=== PATIENT | male | born 1990 | race Caucasian/White ===

== ENCOUNTER 2017-09-19 15:48 | Emergency (ER) | payer MEDICAID, SELFPAY ==
[2017-09-19 15:49] VITALS: BP 108/68; PULSE 78; PULSE 84; RESP 17; RESP 18; TEMP 36.7; O2SAT 96; O2SAT 97; BMI 20.9
--- NOTE | 2017-09-19 16:07 | ED.VISSUMM ---
- ER Visit Summary Date of Service: 09/19/17 Chief Complaint: Right lower extremity abscess History of Present Illness: The patient is a 27 M presenting with abscess right lower extremity ?2 weeks. He states that this has been persistent therefore he presented to the ED. He has tried using peroxide at home with no improvement. He has had no drainage at home. He states 2 nights ago he had a subjective fever, no fever today. He states his blood sugars have been running in the 300s but he has been noncompliant with his diet. Denies other complaints. Physical Examination: Vitals are stable. Patient is afebrile. Alert no acute distress. HEENT exam is unremarkable. Neck is supple. Lungs are clear and equal bilaterally. Heart is regular rate and rhythm. Abdomen is soft nontender nondistended. Extremities are 1 cm fluctuant abscess medial mid calf, 0.5 cm indurated abscess distal medial calf Skin is warm and dry. No focal neurologic deficit. Remainder of exam is unremarkable. Emergency Department Course and Treatment: Patient is given IV fluids. BMP shows glucose 322. He was given insulin subcutaneous. I&D was performed. Anesthetized with lidocaine. Incised with 11 blade, small amount of pus was drained. Irrigated with saline. Wound care instructions were given. He is given a prescription for Bactrim and Keflex. Repeat BGT is 216. 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 Advised return to ED if worsening complaints. Disposition: Discharge home Impression: Right lower extremity abscess, I&D, hyperglycemia This note was generated with [employer] dictation software. It may contain incorrect words, spelling, and punctuation that were not noted in review of the chart prior to signing ED Disposition - Plan for ED Patient: Chief Complaint: Abscess Instructions: ED Abscess IandD Prescriptions: Cephalexin [Keflex] 500 mg PO Q6 #40 capsule Smz/Tmp Ds [Bactrim Ds] 1 tablet PO BID #14 tablet Referrals: Fredrick Santizo DO [STAFF PHYSICIAN] - Care Physician,No Primary [Primary Care Provider] -
[2017-09-19 16:51] LABS: Anion Gap 6 (5-15); BUN 10 mg/dL (7-18); BUN/Creat Ratio 11.7 RATIO (10-20); Calcium,Total 8.5 mg/dL (8.5-10.1); Chloride 98 mmol/L (98-107); Creatinine, Serum 0.86 mg/dL (0.70-1.30); EST Glomerular Filtration Rate 112 mL/min (>60); Est Glom Filt Rate - Afr Amer 135 mL/min (>60); Estimated Creatinine Clearance 108.99 ml/min; Glucose 322 mg/dL (74-106); Sodium Level 135 mmol/L (136-145)
[2017-09-19] MEDS: 0.9% Normal Saline 1,000 ML 1000 ML IV (17:22)
--- NOTE | 2017-09-19 17:28 | ED.DEP ---
ED Disposition - Plan for ED Patient: Chief Complaint: Abscess Instructions: ED Abscess IandD Prescriptions: Cephalexin [Keflex] 500 mg PO Q6 #40 capsule Smz/Tmp Ds [Bactrim Ds] 1 tablet PO BID #14 tablet Referrals: Care Physician,No Primary [Primary Care Provider] - Fredrick Santizo DO [STAFF PHYSICIAN] -
[2017-09-19 17:33] VITALS: BP 114/74; PULSE 72; RESP 16; O2SAT 99
[2017-09-19] MEDS: Cephalexin 250 MG Capsule 500 MG PO (17:48)
[2017-09-19] MEDS: Smz/Tmp Ds Tablet 1 TABLET PO (17:48)
[2017-09-19 18:20] LABS: Bedside Glucose 216 mg/dL (70-110)
[2017-09-19 18:40] VITALS: PULSE 78; RESP 16; O2SAT 98
== END 2017-09-19 18:41 | disposition home or self-care (01) ==
PROVIDERS: Emergency Provider Emergency Medicine
DX: L02.415 Cutaneous abscess of right lower limb (principal); E11.65 Type 2 diabetes mellitus with hyperglycemia; Z91.11 Patient's noncompliance with dietary regimen; Z72.0 Tobacco use; Z79.4 Long term (current) use of insulin; Z79.899 Other long term (current) drug therapy
CPT/HCPCS: 10060; 80048; 82962; 99284; A4216

== ENCOUNTER 2017-11-04 12:28 | Emergency (ER) | payer MEDICAID, SELFPAY ==
[2017-11-04 12:29] VITALS: BP 106/70; PULSE 106; RESP 14; TEMP 36.8; O2SAT 98; BMI 20.9
[2017-11-04 14:20] VITALS: BP 108/73; PULSE 74; RESP 12; O2SAT 100
[2017-11-04 14:25] LABS: Bedside Glucose 180 mg/dL (70-110)
--- NOTE | 2017-11-04 14:33 | ED.RN ---
WHILE DOING PT ASSESSMENT, PT ACKNOWLEDGES CHEST PAIN. EKG DONE AND GIVEN TO .
--- NOTE | 2017-11-04 15:08 | EKG12_ITS ---
Test Reason : SYNCOPE Blood Pressure : / mmHG Vent. Rate : 075 BPM Atrial Rate : 075 BPM P-R Int : 160 ms QRS Dur : 084 ms QT Int : 362 ms P-R-T Axes : 060 062 058 degrees QTc Int : 404 ms Normal sinus rhythm Normal ECG Confirmed by AGUSTO MANTILLA MD ([id number]), dictionary editor SOLEDAD LAMA ([id number]) on 11/07/2017 1:57:18 PM Referred By: OVI Confirmed By:AGUSTO MANTILLA MD
[2017-11-04] MEDS: 0.9% Normal Saline 1,000 ML 999 ML IV (15:25)
--- NOTE | 2017-11-04 15:30 | RAD_ITS ---
STUDY: X-RAY CHEST REASON FOR EXAM: Male, 27 years old. Syncope TECHNIQUE: Frontal and lateral views of the chest COMPARISON: 05/13/2017 FINDINGS: The lungs are clear. There are no pleural effusions. There is no pneumothorax. The heart is normal in size. The visualized osseous structures are within normal limits. RAD/Chest PA and Lateral IMPRESSION: No acute thoracic pathology. Electronically Signed: Fox Aj, at 16:03 EDT Tel , Service support ,
[2017-11-04 15:31] LABS: Absolute Lymphocyte Count 1.07 X10^3/ul (0.83-4.51); Absolute Neutrophil Count 2.3 X10^3/uL (2.0-7.7); Basophil# 0.04 X10^3/uL; Eosinophil# 0.13 X10^3/uL; Eosinophils% 3.1 % (0-5); Hematocrit 44.4 % (40-54); Hemoglobin 16.1 g/dl (13.0-16.5); Lymphocyte # 1.07 X10^3/ul (4.0); Lymphocyte % 25.9 % (19-41); Mean Corp Hgb Conc 36.3 g/gl (32-36); Mean Corpuscular Hgb 30.3 pg (27.0-32.0); Mean Corpuscular Volume 83.5 fL (80-94); Mean Platelet Vol. 9.4 fl (6.2-12.0); Monocyte# 0.55 X10^3/uL; Monocyte% 13.3 % (0-10); Neutrophil # 2.34 X10^3/uL (2.7-7.7); Neutrophil % 56.7 % (47-70); Platelet Count 297 K/mm3 (150-450); RBC Distribution Width SD 36.5 fl (35.1-43.9); Red Blood Count 5.32 M/mm3 (4.6-6.2); White Blood Count 4.1 K/mm3 (4.4-11.0)
[2017-11-04 15:32] LABS: POSITIVE COUNT NO; POSITIVE DIFFERENTIAL NO; POSITIVE MORPHOLOGY NO
[2017-11-04 15:49] LABS: Anion Gap 9 (5-15); BUN 14 mg/dL (7-18); BUN/Creat Ratio 14.8 RATIO (10-20); Calcium,Total 9.8 mg/dL (8.5-10.1); Chloride 101 mmol/L (98-107); Creatinine, Serum 0.95 mg/dL (0.70-1.30); EST Glomerular Filtration Rate 100 mL/min (>60); Est Glom Filt Rate - Afr Amer 120 mL/min (>60); Estimated Creatinine Clearance 101.58 ml/min; Glucose 104 mg/dL (74-106); Phosphorus 1.8 mg/dL (2.5-4.9); Potassium 3.8 mmol/L (3.5-5.1); Sodium Level 140 mmol/L (136-145)
[2017-11-04 16:14] VITALS: BP 104/62; PULSE 67; RESP 12; O2SAT 100
[2017-11-04 16:21] LABS: Bacteria 0 SEEN /hpf (None Seen); Mucous, Urine 0 SEEN /hpf (<or=2+); Red Blood Cells-Urine 0 SEEN /hpf (0-5); White Blood Cells 0 SEEN /hpf (0-5)
[2017-11-04] MEDS: Ondansetron 4 MG/2 ML Vial IV (16:22)
[2017-11-04 16:27] LABS: Hemoglobin A1c 10.8 % (4.2-6.3)
[2017-11-04 16:28] LABS: Color, Urine Yellow (Yellow); Glucose, Dipstick 1000 mg/dl (Normal); Ketone-Dipstick 50 mg/dl (Negative); Leukocyte Esterase-Dipstick Negative /ul (Negative); Nitrite-Dipstick Negative (Negative); Occult Blood-Urine Negative /ul (Negative); Protein-Dipstick Negative (Negative); Specific Gravity, Urine 1.015 (1.002-1.030); Urine Bilirubin Dipstick Negative (Negative); Urine Clarity Sl. Cloudy (Clear); Urine Urobilinogen Normal (Normal)
--- NOTE | 2017-11-04 16:34 | ED.DCSUM_ITS ---
- ER Visit Summary Date of Service: 11/04/17 Chief Complaint: Syncope History of Present Illness: The patient is a 27 M who sees ADEBAYO blanco for type 1 diabetes mellitus. He reports that his blood sugars have been running high for quite some time. His last blood sugar before coming in was 458. He reports that for the past 2 weeks off and on he has been very lightheaded. Reports this is worsened by standing. He had not passed out until this morning. Patient reports he was taking a shower approximately 930. He began feeling very lightheaded. He had nausea and shortness of breath. He denied any chest pain. No neck or back pain. He had a syncopal episode. He denies any injuries from this. Patient reports that he has had a cough for the past 1-2 months that is productive green sputum without blood. He has been nauseated and vomited once today. No blood in his emesis. He has had dysuria for the past 3 days. He has had frequent urination for quite some time. Physical Examination: Vitals: Stable. Afebrile. General: Well-nourished and well-developed. Head: Normocephalic atraumatic. Neck: Supple, no lymphadenopathy. No JVD. Nontender. Cardiovascular: Regular rate and rhythm. No murmurs. Respiratory: No respiratory distress. Clear to auscultation bilaterally. Abdominal: Soft, nontender, nondistended, normal bowel sounds. No guarding, rebound, or peritoneal signs. Back: Nontender. Extremities: Nontender, no edema. Skin: Normal color, no rash. Neurologic: Alert and oriented ?3. Cranial nerves II through XII are intact. Normal strength and sensation. Psych: Normal affect. Test Results: EKG is sinus at [address] changes. Chest x-ray is normal. CBC is more for white count of 4.1 with 13 monocytes. Chem-7 is marked for a glucose of 120. Phosphorus is 1.8. Magnesium is 2.0. UA is negative. Serum ketones are negative. Troponin is negative. Hemoglobin A1c is 10.7 showing that his sugars been approximately 250 on average for the past 3 months. Emergency Department Course and Treatment: Patient was given 2 L of normal saline and also Zofran IV. He is resting comfortably. Treatment Plan: Patient be discharged instructions follow-up his primary care physician 1-2 days not improving. Push fluids. Follow-up with ADEBAYO blanco as soon as possible for optimization of his diabetes treatment. Return to the emergency department for any worsening symptoms. Disposition: To home in improved and stable condition. Impression: 1. Syncope. 2. Orthostatic hypotension. 3. Type 1 diabetes mellitus. This note was generated with [employer] dictation software. It may contain incorrect words, spelling, and punctuation that were not noted in review of the chart prior to signing ED Disposition - Plan for ED Patient: Disposition: Home or Assisted Living Chief Complaint: Syncope Instructions: ED Hypotension Orthostatic Prescriptions: Ondansetron [Zofran Odt] 4 mg PO Q8H PRN PRN #10 tablet PRN Reason: Nausea Referrals: Daily Blanco, TEACHING AIDE-C [Nurse Practitioner] - As soon as possible Alexandre Katz MD [Primary Care Provider] - 1-2 Days if not improving
[2017-11-04 16:54] LABS: Amorphous Sediment 1+ PHOS; Squamous Epithelial Cells - UA 0-5 SEEN /hpf (0-5)
[2017-11-04 17:24] VITALS: BP 100/83; PULSE 72; RESP 16; O2SAT 100
== END 2017-11-04 17:25 | disposition home or self-care (01) ==
PROVIDERS: Emergency Provider Emergency Medicine; Family Provider Internal Medicine; PCP Internal Medicine
DX: I95.1 Orthostatic hypotension (principal); E10.9 Type 1 diabetes mellitus without complications; Z72.0 Tobacco use; Z79.899 Other long term (current) drug therapy; F32.9 Major depressive disorder, single episode, unspecified
CPT/HCPCS: 71046; 80048; 81001; 82009; 82962; 83036; 83735; 84100; 84484; 85025; 93005; 96361; 96374; 99284; J7030; A4216; J2405

== ENCOUNTER → 2017-12-16 10:25 | Outpatient (CLI) | payer MEDICAID, SELFPAY ==
[2017-12-16 11:25] LABS: Microalbumin,Random Urine 7.2 mg/L (NO RANGE EST.)
[2017-12-16 11:29] LABS: ALB/GLOB Ratio 0.9 RATIO (0.9-2.4); AST(SGOT) 22 U/L (15-37); Alanine Aminotransfer ALT/SGPT 18 U/L (16-61); Albumin, Serum 3.5 g/dL (3.2-5.0); Alkaline Phosphatase 136 U/L (45-117); Anion Gap 10 (5-15); BUN 8 mg/dL (7-18); BUN/Creat Ratio 9.5 RATIO (10-20); Calcium,Total 8.4 mg/dL (8.5-10.1); Chloride 105 mmol/L (98-107); Cholesterol 121 mg/dL (200); Creatinine, Serum 0.84 mg/dL (0.70-1.30); EST Glomerular Filtration Rate 114 mL/min (>60); Est Glom Filt Rate - Afr Amer 138 mL/min (>60); Globulin 3.8 g/dL (2.2-4.2); Glucose 155 mg/dL (74-106); High Density Lipoprotein 31 mg/dL; Potassium 3.9 mmol/L (3.5-5.1); Protein, Total 7.3 g/dL (6.4-8.2); Sodium Level 140 mmol/L (136-145); Triglycerides 250 mg/dL; Very Low Density Lipoprotein 50 mg/dL (5-40)
[2017-12-16 11:32] LABS: Hemoglobin A1c 9.3 % (4.2-6.3)
== END ==
PROVIDERS: Family Provider Internal Medicine; PCP Internal Medicine; Visit Provider Nurse Practitioner
DX: E10.9 Type 1 diabetes mellitus without complications (principal)
CPT/HCPCS: 36415; 80053; 80061; 82043; 82570; 83036

== ENCOUNTER 2018-01-02 16:18 | Emergency (ER) | payer MEDICAID, SELFPAY ==
[2018-01-02] VITALS (7 sets, daily range): BP systolic 53–117; BP diastolic 31–76; PULSE 92–139; RESP 14–18; TEMP 36.6; O2SAT 98–100; BMI 19.5
--- NOTE | 2018-01-02 16:55 | CT_ITS ---
STUDY: CT BRAIN WITHOUT CONTRAST REASON FOR EXAM: Male, 27 years old. Weakness RADIATION DOSAGE (If Supplied By Facility): CTDIvol = ( 44.99 ) mGy, DLP = ( 762.36 ) mGycm TECHNIQUE: Transaxial CT imaging of the brain was performed without administration of intravenous contrast material. Individualized dose optimization techniques were used for this CT. COMPARISON: None. FINDINGS: Normal soft tissue structures. Normal calvarium. Normal size ventricles and extra-axial spaces for the patient's age. Normal white matter tracts of the cerebral hemispheres. Normal basal ganglia and thalami. Normal brainstem. Normal cerebellum. There is no intracranial hemorrhage. There are no findings of an acute ischemic infarction. Normal visualized paranasal sinuses. CT/Brain/Head without Contrast IMPRESSION: Normal unenhanced CT scan of the brain. Electronically Signed: Nick Crowe MD at 17:55 EDT , Service support ,
--- NOTE | 2018-01-02 16:55 | RAD_ITS ---
STUDY: X-RAY CHEST REASON FOR EXAM: Male, 27 years old. Pain TECHNIQUE: AP portable COMPARISON: November 04, 2017. FINDINGS: The lungs are clear and expanded. Cannot exclude tiny calcified granuloma at the left lung base. There is no demonstrated pleural abnormality. Normal size heart. Normal mediastinum and maria luisa. Normal visualized pulmonary arteries. Normal visualized aortic arch and descending thoracic aorta. Normal visualized thoracic spine. Normal visualized ribs, clavicles, and shoulders. There is no demonstrated abnormality of the visualized soft tissue structures of the upper abdomen. No significant change since prior study RAD/Chest 1 View (Portable) IMPRESSION: No acute cardiopulmonary pathology Electronically Signed: Nick Crowe MD at 17:35 EDT , Service support ,
--- NOTE | 2018-01-02 16:56 | EKG12_ITS ---
Test Reason : DIZZY Blood Pressure : / mmHG Vent. Rate : 055 BPM Atrial Rate : 055 BPM P-R Int : 130 ms QRS Dur : 084 ms QT Int : 464 ms P-R-T Axes : 018 048 066 degrees QTc Int : 443 ms Sinus bradycardia Otherwise normal ECG Confirmed by JOSE RAFAEL CHAPMAN, AGUSTO ([id number]), editor sound SOLEDAD LAMA ([id number]) on 01/06/2018 1:47:26 PM Referred By: AILEEN Confirmed By:AGUSTO MANTILLA MD
--- NOTE | 2018-01-02 16:58 | ED.VISSUMM ---
- ER Visit Summary Date of Service: 01/02/18 Chief Complaint: Blacking out History of Present Illness: The patient is a 27 M with history of diabetes and depression who presents for blacking out multiple times today. Patient also complaining of vomiting multiple times. Patient's family state he does not remember most of the day. Patient's roommate found him on the stairs throwing up. Unknown if patient fell at all today. Patient is complaining of associated upper abdominal pain, lower chest pain on the right, 1 week of feeling like his breath is being stolen from him, abdominal pain and vomiting. He denies any fever. He asked me if my hair was purple. Patient uses insulin for diabetes and states she has been compliant. He is supposed to be on escitalopram for depression but states he stopped taking it 4-5 days ago. He denies drug use other than marijuana. He drinks frequently but states he did not drink today. He uses tobacco. He denies any chance of withdrawal from anything. Physical Examination: Vital signs: afebrile, hemodynamically stable at time of physician exam, no hypoxia on room air General: well nourished, well developed, in no distress Skin: warm, dry, no rash, no pallor HEENT: normocephalic and atraumatic; tender lymphadenopathy in the left occipital region, PERRL, EOMI, tacky mucous membranes Cardiovascular: Bradycardic rate rate and regular rhythm without murmurs, no peripheral edema, 2+ pulses all distal extremities Respiratory: No increased work of breathing, lungs are clear to auscultation bilaterally, no rales, rhonchi or wheezing Abdominal: Abdomen is soft, mildly tender in the epigastrium with normoactive bowel sounds, no guarding or rebound, no masses MSK: Moves all extremities, no deformities, normal strength Neuro: Awake and alert, oriented ?4. No facial droop, sensation and motor function intact and symmetric Test Results: Abnormal Lab Results 01/02/18 01/02/18 01/02/18 16:43 16:43 16:43 WBC 9.7 RBC 5.82 Hgb 18.2 H* Hct 49.9 MCV 85.7 MCH 31.3 MCHC 36.5 H RDW 13.0 RDW Differential 40.1 Plt Count 304 MPV 9.7 Immature Gran % (Auto) 0.100 Neut % (Auto) 82.8 H Lymph % (Auto) 9.1 L Walworth % (Auto) 7.4 Eos % (Auto) 0.4 Baso % (Auto) 0.2 Absolute Neuts (auto) 8.0 H Absolute Lymphs (auto) 0.88 Total Counted Not Reportable PT 14.0 INR 1.1 APTT 28.6 Specimen Type Sample Site VBG pH VBG pO2 VBG O2 Sat (Calc) VBG O2 Content VBG Base Excess POC Mix VBG pCO2 Pt Tmp O2 Delivery Device Blood Gas Notified Whom Blood Gas Notified Time Sodium 136 Potassium 3.9 Chloride 96 L Carbon Dioxide 31.0 Anion Gap 9 BUN 11 Creatinine 1.53 H Estim Creat Clear Calc 57.13 Est GFR (MDRD) Af Amer 69 Est GFR (MDRD) Non-Af 57 L BUN/Creatinine Ratio 7.2 L Glucose 397 H Lactic Acid Calcium 9.9 Total Bilirubin 2.80 H AST 15 ALT 24 Alkaline Phosphatase 254 H Troponin I < 0.015 Total Protein 9.2 H Albumin 4.6 Globulin 4.6 H Albumin/Globulin Ratio 1.0 Lipase 33 L Urine Color Urine Clarity Urine pH Ur Specific Rougon Urine Protein Urine Glucose (UA) Urine Ketones Urine Occult Blood Urine Nitrite Urine Bilirubin Urine Urobilinogen Ur Leukocyte Esterase Urine RBC Urine WBC Ur Squamous Epith Cells Urine Bacteria Urine Mucus Urine Opiates Screen Urine Methadone Screen Ur Barbiturates Screen Ur Phencyclidine Scrn Ur Amphetamines Screen U Methamphetamin-MDMA U Benzodiazepines Scrn Urine Cocaine Screen U Cannabinoids Screen Ur Drug Screen Comment Ethyl Alcohol Acetone Level POC Glucose 01/02/18 01/02/18 01/02/18 16:43 16:55 17:15 WBC RBC Hgb Hct MCV MCH MCHC RDW RDW Differential Plt Count MPV Immature Gran % (Auto) Neut % (Auto) Lymph % (Auto) Walworth % (Auto) Eos % (Auto) Baso % (Auto) Absolute Neuts (auto) Absolute Lymphs (auto) Total Counted PT INR APTT Specimen Type Sample Site VBG pH VBG pO2 VBG O2 Sat (Calc) VBG O2 Content VBG Base Excess POC Mix VBG pCO2 Pt Tmp O2 Delivery Device Blood Gas Notified Whom Blood Gas Notified Time Sodium Potassium Chloride Carbon Dioxide Anion Gap BUN Creatinine Estim Creat Clear Calc Est GFR (MDRD) Af Amer Est GFR (MDRD) Non-Af BUN/Creatinine Ratio Glucose Lactic Acid 2.0 Calcium Total Bilirubin AST ALT Alkaline Phosphatase Troponin I Total Protein Albumin Globulin Albumin/Globulin Ratio Lipase Urine Color Urine Clarity Urine pH Ur Specific Rougon Urine Protein Urine Glucose (UA) Urine Ketones Urine Occult Blood Urine Nitrite Urine Bilirubin Urine Urobilinogen Ur Leukocyte Esterase Urine RBC Urine WBC Ur Squamous Epith Cells Urine Bacteria Urine Mucus Urine Opiates Screen Urine Methadone Screen Ur Barbiturates Screen Ur Phencyclidine Scrn Ur Amphetamines Screen U Methamphetamin-MDMA U Benzodiazepines Scrn Urine Cocaine Screen U Cannabinoids Screen Ur Drug Screen Comment Ethyl Alcohol 4.0 Acetone Level POC Glucose 357 H 01/02/18 01/02/18 01/02/18 17:15 17:18 17:50 WBC RBC Hgb Hct MCV MCH MCHC RDW RDW Differential Plt Count MPV Immature Gran % (Auto) Neut % (Auto) Lymph % (Auto) Walworth % (Auto) Eos % (Auto) Baso % (Auto) Absolute Neuts (auto) Absolute Lymphs (auto) Total Counted PT INR APTT Specimen Type AMADO Sample Site OTHER VBG pH 7.41 VBG pO2 29 VBG O2 Sat (Calc) 55 VBG O2 Content 29 VBG Base Excess 3 POC Mix VBG pCO2 Pt Tmp 44.5 O2 Delivery Device Room Air Blood Gas Notified Whom ED Blood Gas Notified Time 1711 Sodium Potassium Chloride Carbon Dioxide Anion Gap BUN Creatinine Estim Creat Clear Calc Est GFR (MDRD) Af Amer Est GFR (MDRD) Non-Af BUN/Creatinine Ratio Glucose Lactic Acid Calcium Total Bilirubin AST ALT Alkaline Phosphatase Troponin I Total Protein Albumin Globulin Albumin/Globulin Ratio Lipase Urine Color Yellow Urine Clarity Clear Urine pH 6.5 Ur Specific Rougon 1.005 Urine Protein 30 H Urine Glucose (UA) 1000 H Urine Ketones 50 H Urine Occult Blood Negative Urine Nitrite Negative Urine Bilirubin Negative Urine Urobilinogen Normal Ur Leukocyte Esterase Negative Urine RBC 0 SEEN Urine WBC 0 SEEN Ur Squamous Epith Cells 0-5 SEEN Urine Bacteria 0 SEEN Urine Mucus 0 SEEN Urine Opiates Screen Urine Methadone Screen Ur Barbiturates Screen Ur Phencyclidine Scrn Ur Amphetamines Screen U Methamphetamin-MDMA U Benzodiazepines Scrn Urine Cocaine Screen U Cannabinoids Screen Ur Drug Screen Comment Ethyl Alcohol Acetone Level NEGATIVE POC Glucose 01/02/18 01/02/18 17:50 20:28 WBC RBC Hgb Hct MCV MCH MCHC RDW RDW Differential Plt Count MPV Immature Gran % (Auto) Neut % (Auto) Lymph % (Auto) Walworth % (Auto) Eos % (Auto) Baso % (Auto) Absolute Neuts (auto) Absolute Lymphs (auto) Total Counted PT INR APTT Specimen Type Sample Site VBG pH VBG pO2 VBG O2 Sat (Calc) VBG O2 Content VBG Base Excess POC Mix VBG pCO2 Pt Tmp O2 Delivery Device Blood Gas Notified Whom Blood Gas Notified Time Sodium Potassium Chloride Carbon Dioxide Anion Gap BUN Creatinine Estim Creat Clear Calc Est GFR (MDRD) Af Amer Est GFR (MDRD) Non-Af BUN/Creatinine Ratio Glucose Lactic Acid Calcium Total Bilirubin AST ALT Alkaline Phosphatase Troponin I Total Protein Albumin Globulin Albumin/Globulin Ratio Lipase Urine Color Urine Clarity Urine pH Ur Specific Rougon Urine Protein Urine Glucose (UA) Urine Ketones Urine Occult Blood Urine Nitrite Urine Bilirubin Urine Urobilinogen Ur Leukocyte Esterase Urine RBC Urine WBC Ur Squamous Epith Cells Urine Bacteria Urine Mucus Urine Opiates Screen NEGATIVE Urine Methadone Screen NEGATIVE Ur Barbiturates Screen NEGATIVE Ur Phencyclidine Scrn NEGATIVE Ur Amphetamines Screen POSITIVE H U Methamphetamin-MDMA NEGATIVE U Benzodiazepines Scrn NEGATIVE Urine Cocaine Screen NEGATIVE U Cannabinoids Screen POSITIVE H Ur Drug Screen Comment Ethyl Alcohol Acetone Level POC Glucose 309 H Clinical Impression(s) from Imaging Studies Brain CT 01/02/18 16:55 IMPRESSION: Normal unenhanced CT scan of the brain. Electronically Signed: Nick Crowe MD at 17:55 EDT , Service support , Chest X-Ray 01/02/18 16:55 IMPRESSION: No acute cardiopulmonary pathology Electronically Signed: Nick Crowe MD at 17:35 EDT , Service support , Emergency Department Course and Treatment: Patient presents with multiple episodes of blacking out today and does not remember most of the day. Patient is diabetic and blood sugar check is 357. Patient was orthostatic positive. He was given 2 L of IV fluid for hydration. Workup for patient's altered mental status and hyperglycemia/orthostatic hypotension was performed. Patient had no leukocytosis. Glucose on BMP was 397. Creatinine was 1.53, well above patient's baseline. Urinalysis had trace ketones but serum ketones were negative. Alcohol was negative. Tox was positive for amphetamines and THC. Troponin negative. EKG showed no ischemic changes. No ectopy or pro arrhythmic findings on EKG. Patient's lab work was not consistent with DKA. Patient was given subcutaneous insulin for his hyperglycemia. CT of the head was performed given his mental status changes today and the unknown possibility of head trauma when he fell on the stairs, and it showed no mass lesions or intracranial hemorrhage. Chest x-ray showed no acute process. After patient's 2 L of IV fluids, he stated he felt much better and he was no longer orthostatic. Given his positive orthostatics, it is likely that the patient was having his blackouts from going from a sitting to a standing position and having a syncopal episode. Patient felt much better and was ready for discharge. He was able to ambulate without any difficulty. He was discharged home with family. Treatment Plan: [] Disposition: [] Impression: Hyperglycemia, dehydration, orthostatic syncope This note was generated with [employer] dictation software. It may contain incorrect words, spelling, and punctuation that were not noted in review of the chart prior to signing ED Disposition - Plan for ED Patient: Disposition: Home or Assisted Living Chief Complaint: Weakness Instructions: ED Hyperglycemia Diabetic, ED Hypotension Orthostatic Referrals: Alexandre Katz MD [Primary Care Provider] - 1-2 Days if not improving Additional Instructions: Please drink plenty of fluids, as you were dehydrated today. Please follow your insulin regimen and diabetic treatment strictly as prescribed by your doctor. If you have any worsening of your condition or any new concerning symptoms, please return immediately to the emergency department for another evaluation.
[2018-01-02 17:00] LABS: Bedside Glucose 357 mg/dL (70-110)
[2018-01-02] MEDS: 0.9% Normal Saline 1,000 ML 1000 ML IV (17:09)
[2018-01-02] MEDS: Ondansetron 4 MG/2 ML Vial IV (17:09)
[2018-01-02 17:25] LABS: International Normalized Ratio 1.1; Partial Thromboplast Time 28.6 Seconds (24.1-36.2)
[2018-01-02 17:25] LABS: Blood Gas Specimen Type VEN; O2 Delivery Device Room Air; SITE OTHER; Time Given 1711; VBG BASE EXCESS 3 mmol/L (-1.0-3.5); VBG Bicarbonate 28 mmol/L (22-26); VBG Oxygen Content 29 mmol/L (23-33); VBG PO2 29 mmHg (25-40); VBG SO2 55 % (50-70); VBG pCO2 44.5 mmHg (41-51); VBG pH 7.41 (7.32-7.42)
[2018-01-02 17:34] LABS: Absolute Lymphocyte Count 0.88 X10^3/ul (0.83-4.51); Basophil# 0.02 X10^3/uL; Basophil% 0.2 % (0-1); Eosinophil# 0.04 X10^3/uL; Eosinophils% 0.4 % (0-5); Hematocrit 49.9 % (40-54); Lymphocyte # 0.88 X10^3/ul (4.0); Lymphocyte % 9.1 % (19-41); Mean Corp Hgb Conc 36.5 g/gl (32-36); Mean Corpuscular Hgb 31.3 pg (27.0-32.0); Mean Corpuscular Volume 85.7 fL (80-94); Mean Platelet Vol. 9.7 fl (6.2-12.0); Monocyte# 0.72 X10^3/uL; Monocyte% 7.4 % (0-10); Neutrophil # 8.01 X10^3/uL (2.7-7.7); Neutrophil % 82.8 % (47-70); Platelet Count 304 K/mm3 (150-450); RBC Distribution Width SD 40.1 fl (35.1-43.9); Red Blood Count 5.82 M/mm3 (4.6-6.2); White Blood Count 9.7 K/mm3 (4.4-11.0)
[2018-01-02 17:35] LABS: Hemoglobin 18.2 g/dl (13.0-16.5); POSITIVE COUNT NO; POSITIVE DIFFERENTIAL NO; POSITIVE MORPHOLOGY NO
[2018-01-02 17:55] LABS: Bacteria 0 SEEN /hpf (None Seen); Mucous, Urine 0 SEEN /hpf (<or=2+); Red Blood Cells-Urine 0 SEEN /hpf (0-5); White Blood Cells 0 SEEN /hpf (0-5)
[2018-01-02 18:11] LABS: Color, Urine Yellow (Yellow); Glucose, Dipstick 1000 mg/dl (Normal); Ketone-Dipstick 50 mg/dl (Negative); Leukocyte Esterase-Dipstick Negative /ul (Negative); Nitrite-Dipstick Negative (Negative); Occult Blood-Urine Negative /ul (Negative); Protein-Dipstick 30 mg/dl (Negative); Specific Gravity, Urine 1.005 (1.002-1.030); Urine Bilirubin Dipstick Negative (Negative); Urine Urobilinogen Normal (Normal); Urine pH 6.5 (5.0 - 8.0)
[2018-01-02 18:22] LABS: Amphetamine Urine VISTA POSITIVE (<1000 ng/mL); Barbiturate Urine VISTA NEGATIVE (< 200 ng/mL); Benzodiazepine Urine VISTA NEGATIVE (< 200 ng/mL); Cocaine Urine VISTA NEGATIVE (< 300 ng/mL); Ecstacy Urine VISTA NEGATIVE (< 500 ng/mL); Methadone Urine VISTA NEGATIVE (< 300 ng/mL); PCP Urine VISTA NEGATIVE (< 25 ng/mL); THC Urine VISTA POSITIVE (< 50 ng/mL); Vista UDS pH Range 6
[2018-01-02 18:36] LABS: Squamous Epithelial Cells - UA 0-5 SEEN /hpf (0-5); Urine Clarity Clear (Clear)
[2018-01-02 18:54] LABS: AST(SGOT) 15 U/L (15-37); Alanine Aminotransfer ALT/SGPT 24 U/L (16-61); Albumin, Serum 4.6 g/dL (3.2-5.0); Alkaline Phosphatase 254 U/L (45-117); Anion Gap 9 (5-15); BUN 11 mg/dL (7-18); BUN/Creat Ratio 7.2 RATIO (10-20); Calcium,Total 9.9 mg/dL (8.5-10.1); Chloride 96 mmol/L (98-107); Creatinine, Serum 1.53 mg/dL (0.70-1.30); EST Glomerular Filtration Rate 57 mL/min (>60); Est Glom Filt Rate - Afr Amer 69 mL/min (>60); Estimated Creatinine Clearance 57.13 ml/min; Globulin 4.6 g/dL (2.2-4.2); Glucose 397 mg/dL (74-106); Lipase 33 U/L (73-393); Potassium 3.9 mmol/L (3.5-5.1); Protein, Total 9.2 g/dL (6.4-8.2); Sodium Level 136 mmol/L (136-145)
[2018-01-02] MEDS: Lactated Ringers 1,000 ML 999 ML IV (20:22)
[2018-01-02] MEDS: Insulin Lispro 100 UNIT/ML INSULN.PEN 10 UNIT SC (20:31)
[2018-01-02 20:36] LABS: Bedside Glucose 309 mg/dL (70-110)
[2018-01-02 21:24] LABS: Reflex Lactate? Y
--- NOTE | 2018-01-02 21:38 | ED.DEP ---
ED Disposition - Plan for ED Patient: Disposition: Home or Assisted Living Chief Complaint: Weakness Instructions: ED Hyperglycemia Diabetic, ED Hypotension Orthostatic Referrals: Alexandre Katz MD [Primary Care Provider] - 1-2 Days if not improving Additional Instructions: Please drink plenty of fluids, as you were dehydrated today. Please follow your insulin regimen and diabetic treatment strictly as prescribed by your doctor. If you have any worsening of your condition or any new concerning symptoms, please return immediately to the emergency department for another evaluation.
== END 2018-01-02 21:54 | disposition home or self-care (01) ==
PROVIDERS: Emergency Provider Emergency Medicine; Family Provider Internal Medicine; PCP Internal Medicine
DX: E11.65 Type 2 diabetes mellitus with hyperglycemia (principal); R55 Syncope and collapse; E86.0 Dehydration; R41.82 Altered mental status, unspecified; R07.9 Chest pain, unspecified; F32.9 Major depressive disorder, single episode, unspecified; Z72.0 Tobacco use; Z79.4 Long term (current) use of insulin; Z79.899 Other long term (current) drug therapy
CPT/HCPCS: 70450; 71045; 80053; 80307; 80320; 81001; 82009; 82803; 82962; 83605; 83690; 84484; 85025; 85610; 85730; 87040; 87086; 93005; 96361; 96374; 99285; J7030; J7120; A4216; G0480

== ENCOUNTER → 2018-01-06 15:48 | Outpatient (CLI) | payer MEDICAID, SELFPAY ==
[2018-01-06 18:01] LABS: Hematocrit 44.7 % (40-54); Hemoglobin 16.2 g/dl (13.0-16.5); Mean Corp Hgb Conc 36.2 g/gl (32-36); Mean Corpuscular Hgb 31.3 pg (27.0-32.0); Mean Corpuscular Volume 86.5 fL (80-94); Mean Platelet Vol. 10.3 fl (6.2-12.0); Platelet Count 277 K/mm3 (150-450); RBC Distribution Width CV 13.1 % (11.6-14.6); RBC Distribution Width SD 40.7 fl (35.1-43.9); Red Blood Count 5.17 M/mm3 (4.6-6.2); White Blood Count 3.3 K/mm3 (4.4-11.0)
[2018-01-06 18:09] LABS: ALB/GLOB Ratio 1.1 RATIO (0.9-2.4); AST(SGOT) 17 U/L (15-37); Alanine Aminotransfer ALT/SGPT 16 U/L (16-61); Albumin, Serum 4.2 g/dL (3.2-5.0); Alkaline Phosphatase 165 U/L (45-117); Anion Gap 8 (5-15); BUN 6 mg/dL (7-18); BUN/Creat Ratio 7.7 RATIO (10-20); Calcium,Total 9.3 mg/dL (8.5-10.1); Chloride 104 mmol/L (98-107); Creatinine, Serum 0.78 mg/dL (0.70-1.30); EST Glomerular Filtration Rate 125 mL/min (>60); Est Glom Filt Rate - Afr Amer 151 mL/min (>60); Globulin 3.8 g/dL (2.2-4.2); Glucose 48 mg/dL (74-106); Potassium 3.5 mmol/L (3.5-5.1); Sodium Level 144 mmol/L (136-145)
[2018-01-06 18:20] LABS: Scan Indicated on CBC? Y/N NO
== END ==
PROVIDERS: Family Provider Internal Medicine; PCP Internal Medicine; Visit Provider Nurse Practitioner Family
DX: R00.2 Palpitations (principal); R42 Dizziness and giddiness
CPT/HCPCS: 36415; 80053; 85027

== ENCOUNTER → 2018-01-07 12:46 | Outpatient (CLI) | payer MEDICAID, SELFPAY | PROVIDERS: Family Provider Internal Medicine; PCP Internal Medicine; Visit Provider Internal Medicine | DX: R00.2 Palpitations (principal); R42 Dizziness and giddiness | CPT/HCPCS: 93225; 93226 ==

== ENCOUNTER 2018-09-01 10:45 | Emergency (ER) | payer MEDICAID, SELFPAY ==
[2018-05-19 12:56] VITALS: BMI 20.7
[2018-09-01 10:47] VITALS: BP 106/88; PULSE 121; RESP 22; TEMP 36.6; O2SAT 98; BMI 20.3
--- NOTE | 2018-09-01 10:55 | ED.VISSUMM ---
- ER Visit Summary Date of Service: 09/01/18 Chief Complaint: I think I am in DKA History of Present Illness: The patient is a 28 M with history of type 1 diabetes presenting with 24 hours of nausea, vomiting, and diarrhea. Blood glucose has been reading high on his monitor. He believes he is in DKA. He denies localized abdominal discomfort, fever, body aches, or urinary symptoms. Denies recent changes in medication. Physical Examination: He is tachycardic. He appears dehydrated. Mucous members dry. Neck is supple. Abdomen somewhat tender but no peritoneal signs. No localized discomfort or tenderness. No flank tenderness. No rash or petechiae. Strong pulses in all remedies. Normal mental status examination. Test Results: Emergency Department Course and Treatment: He was only mildly hyperglycemic. Slightly elevated but bicarb is normal. No ketones in the serum. His creatinine was elevated at 2.42. He was given IV fluids and Zofran. A total of 3 L of IV fluids. On reexamination, he is completely awake and alert abdomen is soft and nontender. Not complaining of nausea or pain. He feels much better. He is drinking fluid without difficulty. I spoke at length with the patient and his mother. This is been a recurrent issue for him and he has had dehydration and acute kidney injury before. It typically resolves after IV fluids in the emergency department. We discussed repeating it here however he is confident that he can get in with his doctor in the next 2 days and given his well appearance and the fact that he received 3 L of IV fluids, I feel he can safely follow-up for repeat BMP in 2 days. I stressed the importance of having this repeated within 48 hours and coming back if he starts vomiting again. I did attempt to contact his primary care physician but I have not been able to speak with him yet. Treatment Plan: Continue oral hydration, come back if vomiting, repeat BMP within 48 hours Disposition: Home stable Impression: Initial encounter glycemia, initial encounter acute kidney injury, initial encounter dehydration This note was generated with [employer] dictation software. It may contain incorrect words, spelling, and punctuation that were not noted in review of the chart prior to signing ED Disposition - Plan for ED Patient: Diagnosis: Dehydration, Acute kidney injury Referrals: Alexandre Katz MD [Primary Care Provider] - As soon as possible
[2018-09-01 11:15] LABS: Bedside Glucose 234 mg/dL (70-110)
[2018-09-01 11:26] LABS: Absolute Lymphocyte Count 1.24 X10^3/ul (0.83-4.51); Absolute Neutrophil Count 7.6 X10^3/uL (2.0-7.7); Basophil# 0.01 X10^3/uL; Basophil% 0.1 % (0-1); Eosinophil# 0.01 X10^3/uL; Eosinophils% 0.1 % (0-5); Hematocrit 51.3 % (40-54); Hemoglobin 18.1 g/dl (13.0-16.5); Lymphocyte # 1.24 X10^3/ul (4.0); Lymphocyte % 12.3 % (19-41); Mean Corp Hgb Conc 35.3 g/gl (32-36); Mean Corpuscular Hgb 31.3 pg (27.0-32.0); Mean Corpuscular Volume 88.8 fL (80-94); Mean Platelet Vol. 10.4 fl (6.2-12.0); Monocyte# 1.22 X10^3/uL; Monocyte% 12.1 % (0-10); Neutrophil # 7.61 X10^3/uL (2.7-7.7); Neutrophil % 75.4 % (47-70); Platelet Count 349 K/mm3 (150-450); RBC Distribution Width CV 12.4 % (11.6-14.6); RBC Distribution Width SD 39.1 fl (35.1-43.9); Red Blood Count 5.78 M/mm3 (4.6-6.2); White Blood Count 10.1 K/mm3 (4.4-11.0)
[2018-09-01 11:27] LABS: POSITIVE COUNT NO; POSITIVE DIFFERENTIAL NO; POSITIVE MORPHOLOGY NO
[2018-09-01 11:35] LABS: Anion Gap 16 (5-15); BUN 28 mg/dL (7-18); BUN/Creat Ratio 11.6 RATIO (10-20); Calcium,Total 10.2 mg/dL (8.5-10.1); Chloride 100 mmol/L (98-107); Creatinine, Serum 2.42 mg/dL (0.70-1.30); EST Glomerular Filtration Rate 34 mL/min (>60); Est Glom Filt Rate - Afr Amer 41 mL/min (>60); Estimated Creatinine Clearance 37.23 ml/min; Glucose 228 mg/dL (74-106); Potassium 3.9 mmol/L (3.5-5.1); Sodium Level 144 mmol/L (136-145)
[2018-09-01] MEDS: Ondansetron 4 MG/2 ML Vial IV (11:36)
[2018-09-01] MEDS: 0.9% Normal Saline 1,000 ML 999 ML IV ×4 (11:36→14:28)
[2018-09-01] MEDS: LORazepam 2 MG/ML Syringe 0.5 MG IV (11:36)
[2018-09-01 12:06] VITALS: BP 131/78; PULSE 84; RESP 20; O2SAT 94
[2018-09-01 12:07] VITALS: BP 131/78; PULSE 84; RESP 20; TEMP 36.6; O2SAT 94
[2018-09-01 12:21] LABS: Bedside Glucose 197 mg/dL (70-110)
[2018-09-01 12:29] LABS: Bacteria 0 SEEN /hpf (None Seen); Mucous, Urine 0 SEEN /hpf (<or=2+); Red Blood Cells-Urine 0 SEEN /hpf (0-5); White Blood Cells 0 SEEN /hpf (0-5)
[2018-09-01 12:38] LABS: Color, Urine Yellow (Yellow); Glucose, Dipstick 1000 mg/dl (Normal); Ketone-Dipstick 50 mg/dl (Negative); Leukocyte Esterase-Dipstick Negative /ul (Negative); Nitrite-Dipstick Negative (Negative); Occult Blood-Urine Negative /ul (Negative); Protein-Dipstick 30 mg/dl (Negative); Specific Gravity, Urine 1.025 (1.002-1.030); Urine Bilirubin Dipstick Negative (Negative); Urine Clarity Clear (Clear); Urine Urobilinogen Normal (Normal)
[2018-09-01 12:44] LABS: Hyaline Cast 0-5 SEEN /lpf (0-5); Squamous Epithelial Cells - UA 0-5 SEEN /hpf (0-5)
[2018-09-01 13:41] VITALS: BP 107/68; PULSE 74; RESP 16; TEMP 36.7; O2SAT 98
[2018-09-01 13:46] LABS: Bedside Glucose 180 mg/dL (70-110)
[2018-09-01 14:26] VITALS: BP 102/64; PULSE 77; RESP 16; TEMP 36.7; O2SAT 97
--- NOTE | 2018-09-01 15:14 | ED.VISSUMM ---
- ER Visit Summary Date of Service: 09/01/18 Chief Complaint: [] History of Present Illness: The patient is a 28 M [] Physical Examination: [] Test Results: [] Emergency Department Course and Treatment: [] Treatment Plan: [] Disposition: [] Impression: [] This note was generated with [employer] software. It may contain incorrect words, spelling, and punctuation that were not noted in review of the chart prior to signing ED Disposition - Plan for ED Patient: Diagnosis: Dehydration, Acute kidney injury Instructions: ED Nausea Vomiting, ED Dehydration Referrals: Alexandre Katz MD [Primary Care Provider] - As soon as possible
--- NOTE | 2018-09-01 15:17 | ED.DCSUM_ITS ---
- ER Visit Summary Date of Service: 09/01/18 Chief Complaint: [] History of Present Illness: The patient is a 28 M [] Physical Examination: [] Test Results: [] Emergency Department Course and Treatment: [] Treatment Plan: [] Disposition: [] Impression: [] This note was generated with [employer] software. It may contain incorrect words, spelling, and punctuation that were not noted in review of the chart prior to signing ED Disposition - Plan for ED Patient: Diagnosis: Dehydration, Acute kidney injury Instructions: ED Nausea Vomiting, ED Dehydration Referrals: Alexandre Katz MD [Primary Care Provider] - As soon as possible
--- NOTE | 2018-09-01 15:51 | ED.RN ---
per verbal order from dr. winters. pt blood glucose does not need checked before dischare. pt educated on dc instructions importance of hydration and managing diabetes. pt denies any further questions. pt to follow up with dr. hua and have bun/creat redrawn in 1 week.
[2018-09-01 15:53] VITALS: BP 123/83; PULSE 77; RESP 18; O2SAT 99
== END 2018-09-01 15:56 | disposition home or self-care (01) ==
PROVIDERS: Emergency Provider Emergency Medicine; Family Provider Internal Medicine; PCP Internal Medicine
DX: E10.65 Type 1 diabetes mellitus with hyperglycemia (principal); N17.9 Acute kidney failure, unspecified; E86.0 Dehydration; R11.2 Nausea with vomiting, unspecified; R19.7 Diarrhea, unspecified; K21.9 Gastro-esophageal reflux disease without esophagitis; F32.9 Major depressive disorder, single episode, unspecified; Z72.0 Tobacco use; Z79.4 Long term (current) use of insulin; Z79.899 Other long term (current) drug therapy
CPT/HCPCS: 80048; 81001; 82009; 82962; 85025; 96361; 96374; 96375; 99284; J7030; A4216; J2405

== ENCOUNTER 2018-09-14 18:53 | Emergency (ER) | payer OTHER, MEDICAID, SELFPAY ==
[2018-09-14 18:55] VITALS: BP 118/82; PULSE 67; RESP 15; TEMP 36.1; O2SAT 99; BMI 20.7
--- NOTE | 2018-09-14 22:35 | ED.VISSUMM ---
- ER Visit Summary Date of Service: 09/14/18 Chief Complaint: Hot grease to left eye History of Present Illness: The patient is a 28 M patient was cooking and when he was placing the chicken tenders in the hot grease splashed into his left eye. This occurred approximately 3 hours prior. He does wear glasses. Is never had any eye surgery. Does not have foreign body sensation. He is a known type 1 insulin-dependent diabetic. Offered and deferred Worker's Comp. Physical Examination: Well-appearing young male. Vital signs are stable. He is afebrile. H EENT exam pupils round reactive light. Extraocular motions are intact. There is no signs of trauma to his face. Left eye is minimally injected. And watering. There is no signs of infection. Both the upper and lower lids were inverted are unremarkable. They are not swollen. There is no signs of trauma or foreign body. Tetracaine was instilled in his left eye he received immediate relief. Fluorescein stain and slit lamp examination performed. At approximately 5:00 and 6:00 just below the pupil there is a corneal abrasion/burn. No foreign body. No globe rupture. Fluorescein stain was taken up. Neck nontender. Lungs are clear. Heart regular rhythm no murmur. Abdomen Test Results: None Emergency Department Course and Treatment: Slit-lamp examination left eye was performed. Treatment Plan: Bacitracin ophthalmic ointment. Tetracaine for pain relief for the next 24 hours and disposed of. Tylenol Motrin for pain. Sunglasses to prevent glare. Disposition: dc Impression: Left eye corneal abrasion This note was generated with [employer] dictation software. It may contain incorrect words, spelling, and punctuation that were not noted in review of the chart prior to signing ED Disposition - Plan for ED Patient: Referrals: Alexandre Katz MD [Primary Care Provider] -
--- NOTE | 2018-09-14 22:39 | ED.DCSUM_ITS ---
- ER Visit Summary Date of Service: 09/14/18 Chief Complaint: Hot grease to left eye History of Present Illness: The patient is a 28 M patient was cooking and when he was placing the chicken tenders in the hot grease splashed into his left eye. This occurred approximately 3 hours prior. He does wear glasses. Is never had any eye surgery. Does not have foreign body sensation. He is a known type 1 insulin-dependent diabetic. Offered and deferred Worker's Comp. Physical Examination: Well-appearing young male. Vital signs are stable. He is afebrile. H EENT exam pupils round reactive light. Extraocular motions are intact. There is no signs of trauma to his face. Left eye is minimally injected. And watering. There is no signs of infection. Both the upper and lower lids were inverted are unremarkable. They are not swollen. There is no signs of trauma or foreign body. Tetracaine was instilled in his left eye he received immediate relief. Fluorescein stain and slit lamp examination performed. At approximately 5:00 and 6:00 just below the pupil there is a corn eal abrasion/burn. No foreign body. No globe rupture. Fluorescein stain was taken up. Neck nontender. Lungs are clear. Heart regular rhythm no murmur. Abdomen Test Results: None Emergency Department Course and Treatment: Slit-lamp examination left eye was performed. Treatment Plan: Bacitracin ophthalmic ointment. Tetracaine for pain relief for the next 24 hours and disposed of. Tylenol Motrin for pain. Sunglasses to prevent glare. Disposition: dc Impression: Left eye corneal abrasion This note was generated with [employer] dictation software. It may contain incorrect words, spelling, and punctuation that were not noted in review of the chart prior to signing ED Disposition - Plan for ED Patient: Referrals: Alexandre Katz MD [Primary Care Provider] -
--- NOTE | 2018-09-14 22:39 | ED.DEP ---
ED Disposition - Plan for ED Patient: Disposition: Home or Assisted Living Instructions: ED Eye Injury Corneal Abrasion Referrals: Nick King MD [STAFF PHYSICIAN] - 3-5 Days if not improving Additional Instructions: Sunglasses to prevent clear. May use 2 drops to the eyes every 2-4 hours for pain. Must stop using them in 24 hours because they prevent healing. Furthermore a tomorrow night at 10 PM. Tylenol and Motrin for pain. Ointment 4 times a day til gone. Follow-up with eye doctor if not improving.
[2018-09-14] MEDS: Fluorescein 1 MG STRIP 1 STRIP LEFT EYE (23:08)
[2018-09-14] MEDS: Tetracaine 0.5% Ophthalmic Bottle 1 DRP LEFT EYE (23:08)
== END 2018-09-14 23:10 | disposition home or self-care (01) ==
PROVIDERS: Emergency Provider Emergency Medicine; Family Provider Internal Medicine; PCP Internal Medicine
DX: T26.12XA Burn of cornea and conjunctival sac, left eye, initial encounter (principal); S05.02XA Injury of conjunctiva and corneal abrasion without foreign body, left eye, initial encounter; X10.2XXA Contact with fats and cooking oils, initial encounter; Y93.G3 Activity, cooking and baking; Y92.9 Unspecified place or not applicable; Y99.9 Unspecified external cause status; E10.9 Type 1 diabetes mellitus without complications; F32.9 Major depressive disorder, single episode, unspecified; Z72.0 Tobacco use; Z79.4 Long term (current) use of insulin; Z79.899 Other long term (current) drug therapy
CPT/HCPCS: 99284

== ENCOUNTER → 2018-09-17 14:23 | Outpatient (CLI) | payer MEDICAID, SELFPAY ==
[2018-09-17 13:30] VITALS: BMI 20.7
[2018-09-17 14:47] LABS: Absolute Lymphocyte Count 1.14 X10^3/ul (0.83-4.51); Absolute Neutrophil Count 2.7 X10^3/uL (2.0-7.7); Basophil# 0.03 X10^3/uL; Basophil% 0.7 % (0-1); Eosinophil# 0.08 X10^3/uL; Eosinophils% 1.9 % (0-5); Hematocrit 41.4 % (40-54); Lymphocyte # 1.14 X10^3/ul (4.0); Lymphocyte % 26.8 % (19-41); Mean Corp Hgb Conc 33.8 g/gl (32-36); Mean Corpuscular Hgb 30.5 pg (27.0-32.0); Mean Corpuscular Volume 90.2 fL (80-94); Monocyte# 0.29 X10^3/uL; Monocyte% 6.8 % (0-10); Neutrophil # 2.72 X10^3/uL (2.7-7.7); Neutrophil % 63.8 % (47-70); Platelet Count 233 K/mm3 (150-450); RBC Distribution Width CV 12.3 % (11.6-14.6); RBC Distribution Width SD 40.3 fl (35.1-43.9); Red Blood Count 4.59 M/mm3 (4.6-6.2); White Blood Count 4.3 K/mm3 (4.4-11.0)
[2018-09-17 14:52] LABS: POSITIVE COUNT NO; POSITIVE DIFFERENTIAL NO; POSITIVE MORPHOLOGY NO
[2018-09-17 16:26] LABS: ALB/GLOB Ratio 1.2 RATIO (0.9-2.4); AST(SGOT) 27 U/L (15-37); Alanine Aminotransfer ALT/SGPT 17 U/L (16-61); Albumin, Serum 3.7 g/dL (3.2-5.0); Alkaline Phosphatase 99 U/L (45-117); Anion Gap 2 (5-15); BUN 4 mg/dL (7-18); BUN/Creat Ratio 3.9 RATIO (10-20); Calcium,Total 8.1 mg/dL (8.5-10.1); Chloride 101 mmol/L (98-107); Creatinine, Serum 1.03 mg/dL (0.70-1.30); EST Glomerular Filtration Rate 90 mL/min (>60); Est Glom Filt Rate - Afr Amer 109 mL/min (>60); Glucose 565 mg/dL (74-106); Potassium 4.2 mmol/L (3.5-5.1); Protein, Total 6.7 g/dL (6.4-8.2); Sodium Level 135 mmol/L (136-145)
== END ==
PROVIDERS: Family Provider Internal Medicine; PCP Internal Medicine; Referring Provider Internal Medicine; Visit Provider Internal Medicine
DX: R11.2 Nausea with vomiting, unspecified (principal); R53.81 Other malaise; R53.83 Other fatigue
CPT/HCPCS: 36415; 80053; 85025

== ENCOUNTER 2018-11-04 15:35 | Observation (INO) | payer MEDICAID, SELFPAY ==
[2018-09-17 13:30] VITALS: BMI 20.7
[2018-11-04 15:36] VITALS: BP 121/81; PULSE 121; RESP 15; TEMP 36.9; O2SAT 98; BMI 20.9
[2018-11-04 15:51] LABS: Bedside Glucose > 500 mg/dL (70-110)
--- NOTE | 2018-11-04 16:00 | EKG12_ITS ---
Test Reason : DIZZINESS Blood Pressure : / mmHG Vent. Rate : 108 BPM Atrial Rate : 108 BPM P-R Int : 136 ms QRS Dur : 076 ms QT Int : 318 ms P-R-T Axes : 066 065 063 degrees QTc Int : 426 ms Sinus tachycardia Otherwise normal ECG Confirmed by JAREK MILLIGAN ([id number]), food editor SOLEDAD LAMA ([id number]) on 11/09/2018 2:47:52 PM Referred By: Noah Diamond Confirmed By:NITZA MILLIGAN
--- NOTE | 2018-11-04 16:01 | RAD_ITS ---
STUDY: X-RAY CHEST REASON FOR EXAM: Male, 28 years old. Dizziness TECHNIQUE: Frontal view of the chest COMPARISON: 01/02/2018 FINDINGS: The lungs are clear. There are no pleural effusions. There is no pneumothorax. The heart is normal in size. The visualized osseous structures are within normal limits. RAD/Chest 1 View (Portable) IMPRESSION: No acute thoracic pathology. Electronically Signed: Fox Aj, at 16:39 EDT Tel , Service support ,
[2018-11-04] MEDS: Ondansetron 4 MG/2 ML Vial IV (16:15)
[2018-11-04] MEDS: 0.9% Normal Saline 1,000 ML 999 ML IV ×2 (16:15→16:51)
[2018-11-04] MEDS: 0.9% Normal Saline 1,000 ML 500 ML IV (16:15)
[2018-11-04] MEDS: LORazepam 2 MG/ML Syringe 1 MG IV (16:28)
[2018-11-04 16:31] LABS: Allen Test POS; Base Excess -4 mmol/L (-2 to +2); Blood Gas Specimen Type ART; O2 Delivery Device Room Air; PO2 133 mmHG (75-100); SITE L Radial; SO2 100 % (95-99); Time Given 1624; Total Carbon Dioxide 19 mmol/L; pCO2 18.1 mmHg (35-45)
[2018-11-04 17:07] LABS: Anion Gap 14 (5-15); BUN 19 mg/dL (7-18); BUN/Creat Ratio 13.9 RATIO (10-20); Calcium,Total 9.2 mg/dL (8.5-10.1); Chloride 98 mmol/L (98-107); Creatinine, Serum 1.37 mg/dL (0.70-1.30); EST Glomerular Filtration Rate 65 mL/min (>60); Est Glom Filt Rate - Afr Amer 78 mL/min (>60); Estimated Creatinine Clearance 67.78 ml/min; Glucose 586 mg/dL (74-106); Potassium 3.8 mmol/L (3.5-5.1); Sodium Level 135 mmol/L (136-145)
[2018-11-04 17:21] LABS: Bedside Glucose 386 mg/dL (70-110)
[2018-11-04 17:43] LABS: Absolute Lymphocyte Count 0.94 X10^3/ul (0.83-4.51); Absolute Neutrophil Count 3.9 X10^3/uL (2.0-7.7); Basophil# 0.04 X10^3/uL; Basophil% 0.7 % (0-1); Eosinophil# 0.14 X10^3/uL; Eosinophils% 2.6 % (0-5); Hematocrit 40.1 % (40-54); Hemoglobin 14.6 g/dl (13.0-16.5); Lymphocyte # 0.94 X10^3/ul (4.0); Lymphocyte % 17.5 % (19-41); Mean Corp Hgb Conc 36.4 g/gl (32-36); Mean Corpuscular Hgb 30.6 pg (27.0-32.0); Mean Corpuscular Volume 84.1 fL (80-94); Monocyte# 0.35 X10^3/uL; Monocyte% 6.5 % (0-10); Neutrophil # 3.89 X10^3/uL (2.7-7.7); Neutrophil % 72.7 % (47-70); Platelet Count 233 K/mm3 (150-450); RBC Distribution Width CV 12.1 % (11.6-14.6); RBC Distribution Width SD 36.3 fl (35.1-43.9); Red Blood Count 4.77 M/mm3 (4.6-6.2); White Blood Count 5.4 K/mm3 (4.4-11.0)
[2018-11-04 17:45] LABS: POSITIVE COUNT NO; POSITIVE DIFFERENTIAL NO; POSITIVE MORPHOLOGY NO
[2018-11-04 17:56] VITALS: BP 97/55; PULSE 82; RESP 16; O2SAT 96
--- NOTE | 2018-11-04 19:21 | PCM.HP.STD ---
Problem List (1) Anxiety and depression Status: Chronic (2) Diabetes mellitus type I Status: Chronic (3) Acute kidney injury Status: Acute (4) Acute hyperglycemia Status: Acute History of Present Illness Date of Admission: 11/04/18 Chief Complaint: Lethargy The patient is a 28 year old M with a significant history of tobacco abuse; anxiety and depression; and Type 1 Diabetes who presents with a myriad of symptoms including lethargy; headache; epistaxis; no vomiting; nausea; imbalance on his feet; and abdominal pain. Per family patient fell when he was getting off a car. At the emergency department his blood glucose was severely elevated and his pH was alkalotic. With IV fluids his blood glucose decreased. Past Medical History Past Medical History (Chronic Problems): Chronic Problems (Last Reviewed 09/17/18 @ 13:27 by Saray Tavera) Hypersomnolence (Chronic) GERD (gastroesophageal reflux disease) (Chronic) Depression with anxiety (Chronic) Vision problems (Chronic) Ulcer (Chronic) Hearing problem (Chronic) Arthritis (Chronic) Headache, migraine (Chronic) Diabetes type 1, controlled (Chronic) Dx : age 9 Last exacerbation : DKA : 04/09 Hypoglycemic episode : never ER visit : 04/09 Anxiety and depression (Chronic) Diabetes mellitus type I (Chronic) Depression (Chronic) PUD (peptic ulcer disease) (Chronic) Medical History: Medical History (Last Reviewed 11/05/18 @ 06:25 by Noah Diamond MD) Vision problems (Chronic) H54.7 Ulcer (Chronic) Hearing problem (Chronic) H91.90 Arthritis (Chronic) M19.90 Headache, migraine (Chronic) G43.909 Diabetes type 1, controlled (Chronic) E10.9 Dx : age 9 Last exacerbation : DKA : 04/09 Hypoglycemic episode : never ER visit : 04/09 Anxiety and depression (Chronic) F41.8 Allergies No Known Allergies Allergy (Verified 11/04/18 15:35) Home Medications: Ambulatory Orders Medication Instructions Recorded insulin aspart (U-100) 100 unit/mL See Rx Instructions .ROUTE 11/06/17 (3 mL) subcutaneous pen .COMPLEX ml Insulin Glargine,Hum.rec.anlog 26 unit SC DAILY 09/14/18 [Basaglar KwikPen U-100 Insulin] Escitalopram Oxalate [Lexapro] 20 mg PO DAILY 11/04/18 Glucagon,Human Recombinant 1 mg IM ONCE 11/04/18 [Glucagon Emergency Kit (human)] Omeprazole 40 mg PO DAILY 11/04/18 Surgical History: Surgical History (Last Reviewed 11/05/18 @ 06:10 by Noah Diamond MD) trigger finger surgery Psychiatric History: Depression Smoking Status: Current every day smoker - *Family History Maternal Family History: Family History (Last Reviewed 11/05/18 @ 06:10 by Noah Diamond MD) Grandfather Myocardial infarction COPD (chronic obstructive pulmonary disease) Brother Depression Uncle Diabetes Father Diabetes Aunt Diabetes History Items: No pertinent history Paternal Family History: Family History (Last Reviewed 11/05/18 @ 06:10 by Noah Diamond MD) Grandfather Myocardial infarction COPD (chronic obstructive pulmonary disease) Brother Depression Uncle Diabetes Father Diabetes Aunt Diabetes History Items: Diabetes - AUNT AND UNCLES HAS H/O DM 2 Review of Systems Constitutional: Reports: Fever, Malaise, Weakness, Fatigue. Denies: Weight Change HEENT: Reports: Head Aches, Nasal bleeding. Denies: Sinus Congestion, Sinus Drainage Cardiovascular: Denies: Chest Pain, Palpitations Respiratory: Denies: Cough, Shortness of breath at rest, Sputum production Gastrointestinal: Denies: Abdominal Pain, Nausea, Vomiting Genitourinary: Denies: Dysuria Musculoskeletal: Denies: Joint Pain, Joint Tenderness Skin: Denies: Rash, Wounds Neurological: Denies: Numbness, Tingling, Focal weakness Psychiatric: Denies: Anxiety, Depression, Homicidal Ideations, Suicidal Ideations Hematologic/ Lymphatic: Denies: Easy Bruising, Easy Bleeding VTE Information - Inpt Only VTE Present on Admission: No VTE Mechan Device Prophylaxis: None VTE Pharm Prophylaxis ordered?: No Reason prophylaxis not ordered:: Treatment Not Indicated - Low risk. Patient Problems: Active and Suspected Problems (Last Reviewed 09/17/18 @ 13:27 by Saray Tavera) Acute hyperglycemia (Acute) - Physical Exam General: Alert, Oriented x3, Cooperative HEENT: Atraumatic, PERRLA, EOMI, Normocephalic Neck: Supple, No JVD, Negative Carotid Bruits Lungs: Clear to auscultation, Normal air movement Cardiovascular: Regular rate, No murmurs Abdomen: Bowel Sounds Present, Soft, Non Tender Extremities: No edema, Capillary Refill Less than 3 Seconds Skin: No rashes, No breakdown Musculoskeletal: No Tenderness to Palpation of Joints or Extremities Neurological: Neuro grossly intact Psych/Mental Status: Normal Affect, Appropriate Vital Signs Temp Pulse Resp BP Pulse Ox 98.5 F 82 16 97/55 L 96 11/04/18 15:36 11/04/18 17:56 11/04/18 17:56 11/04/18 17:56 11/04/18 17:56 Oxygen Delivery Method Room Air Weight: 60.781 kg Body Mass Index (BMI) 20.9 Finger Stick Blood Glucose 386 Laboratory Tests Past 24 Hrs 11/04/18 11/04/18 11/04/18 15:59 15:59 15:59 WBC 5.4 RBC 4.77 Hgb 14.6 Hct 40.1 MCV 84.1 MCH 30.6 MCHC 36.4 H RDW 12.1 RDW Differential 36.3 Plt Count 233 MPV 11.0 Immature Gran % (Auto) 0.000 Neut % (Auto) 72.7 H Lymph % (Auto) 17.5 L [place] % (Auto) 6.5 Eos % (Auto) 2.6 Baso % (Auto) 0.7 Absolute Neuts (auto) 3.9 Absolute Lymphs (auto) 0.94 Total Counted Not Reportable Specimen Type Sample Site pH Bicarbonate Actual POC Total CO2 Base Excess O2 Saturation ABG pCO2 ABG pO2 Carrillo Test O2 Delivery Device Blood Gas Notified Whom Blood Gas Notified Time Sodium 135 L Potassium 3.8 Chloride 98 Carbon Dioxide 23.0 Anion Gap 14 BUN 19 H Creatinine 1.37 H Estim Creat Clear Calc 67.78 Est GFR (MDRD) Af Amer 78 Est GFR (MDRD) Non-Af 65 BUN/Creatinine Ratio 13.9 Glucose 586 H* Calcium 9.2 Troponin I < 0.015 Acetone Level SMALL H 11/04/18 11/04/18 16:25 18:45 WBC RBC Hgb Hct MCV MCH MCHC RDW RDW Differential Plt Count MPV Immature Gran % (Auto) Neut % (Auto) Lymph % (Auto) [place] % (Auto) Eos % (Auto) Baso % (Auto) Absolute Neuts (auto) Absolute Lymphs (auto) Total Counted Specimen Type ART Sample Site L Radial pH 7.60 H* Bicarbonate Actual 18.0 L POC Total CO2 19 Base Excess -4 L O2 Saturation 100 H ABG pCO2 18.1 L* ABG pO2 133 H Carrillo Test POS O2 Delivery Device Room Air Blood Gas Notified Whom ED Blood Gas Notified Time 1624 Sodium Pending Potassium Pending Chloride Pending Carbon Dioxide Pending Anion Gap Pending BUN Pending Creatinine Pending Estim Creat Clear Calc Est GFR (MDRD) Af Amer Pending Est GFR (MDRD) Non-Af Pending BUN/Creatinine Ratio Pending Glucose Pending Calcium Pending Troponin I Acetone Level POC Glucose 11/04/18 11/04/18 17:12 15:45 POC Glucose 386 H > 500 H* Assessment/Plan All Active Problems (Last Reviewed 09/17/18 @ 13:27 by Saray Tavera) Acute hyperglycemia (Acute) Acute kidney injury (Acute) Dehydration (Acute) Hypoglycemia (Acute) Tachycardia (Acute) Diarrhea (Acute) N&V (nausea and vomiting) (Acute) Hypomagnesemia (Acute) DKA, type 1 (Acute) Altered mental status (Acute) Diabetes (Acute) DKA (diabetic ketoacidoses) (Acute) The patient is a 28 year old M with a significant history of tobacco abuse; anxiety and depression; and Type 1 Diabetes who presents with a myriad of symptoms including lethargy; headache; epistaxis; no vomiting; nausea; imbalance on his feet; and abdominal pain and found to have severe hyperglycemia and respiratory alkalosis. Acute hyperglycemia Patient reported that his home insulin had . At the emergency department he reported that he has not taken his home Basaglar so Basaglar that he takes every morning was reordered nightly. Patient was noted to have hypoglycemia for which he responded to food. Basaglar was changed to every morning. On home correction scale insulin. Correction scale insulin ordered. accucheck every 4 hours. will change to qachs with moderate scale protocol. Patient received normal saline at the emergency department. Normal saline infusion was ordered; and then discontinued as his blood glucose improved and even as he went into hypoglycemia. Epistaxis None was noted at the hospital MIREILLE on presentation his creatinine was 1.27. Likely due to dehydration. Received IV fluids with resolution of MIREILLE. Anxiety Disorder Likely this caused his respiratory alkalosis Patient received Ativan in the emergency department. DVT prophylaxis Low risk Ambulate Code Visit Inpatient E&M: 20037 Init Hosp L3
[2018-11-04 19:34] VITALS: BP 105/75; PULSE 87; RESP 16; O2SAT 98
--- NOTE | 2018-11-04 19:36 | ED.VISSUMM ---
- ER Visit Summary Date of Service: 11/04/18 Chief Complaint: Dizzy and headache History of Present Illness: The patient is a 28 M with a history of type 1 diabetes, DKA, acute kidney injury, and others. He presents today with a headache, dizziness, nausea, vomiting, nosebleeds. He has not been taking his insulin or checking his glucose. His glucose read high. Denies fevers. Denies abdominal pain. Denies focal weakness or numbness. Denies trauma. He does not take blood thinners. Physical Examination: Tachycardic at 121 but otherwise vitals unremarkable. Afebrile. Patient is actively vomiting in the room. Tearful. Mucous membranes are dry. Cranial nerves grossly intact. Neck nontender with good range of motion. Heart tachycardic but regular. Lungs clear. Abdomen soft. Skin appears slightly pale. Test Results: Bedside glucose was over 500. Labs pending. Emergency Department Course and Treatment: Patient is hyperglycemic. History of DKA. Fluid bolus was started. He was placed on a monitor. CBC was normal. Sodium 135, repeat glucose after fluids 386. BUN 19 and creatinine 1.37. Troponin normal. Small ketones. pH was 7.6. EKG showed sinus rhythm at a rate of 108. Chest x-ray was unremarkable. Patient was tearful and anxious. He was treated with Ativan. This helped him greatly. He was able to rest comfortably. Patient has hyperglycemia and acute kidney injury. He also has vomiting. I contacted the hospitalist for admission for further care. Treatment Plan: As above Disposition: Admission Impression: 1. Hyperglycemia 2. Acute kidney injury This note was generated with [employer] dictation software. It may contain incorrect words, spelling, and punctuation that were not noted in review of the chart prior to signing ED Disposition - Plan for ED Patient: Referrals: Alexandre Katz MD [Primary Care Provider] -
[2018-11-04 19:44] VITALS: BMI 21.0
[2018-11-04 20:04] LABS: Anion Gap 2 (5-15); BUN 14 mg/dL (7-18); Calcium,Total 7.4 mg/dL (8.5-10.1); Chloride 111 mmol/L (98-107); Creatinine, Serum 0.94 mg/dL (0.70-1.30); EST Glomerular Filtration Rate 100 mL/min (>60); Est Glom Filt Rate - Afr Amer 121 mL/min (>60); Estimated Creatinine Clearance 98.79 ml/min; Glucose 262 mg/dL (74-106); Potassium 3.7 mmol/L (3.5-5.1); Sodium Level 141 mmol/L (136-145)
[2018-11-04 20:08] VITALS: BP 106/71; PULSE 73; RESP 18; TEMP 36.8; O2SAT 99; BMI 20.9; BMI 21.0
[2018-11-04 20:29] VITALS: PULSE 86
[2018-11-04] MEDS: 0.9% NaCl Peripheral Flush Adult/Peds IV (21:01)
[2018-11-04] MEDS: Potassium Chloride 40 MEQ in 0.9% Normal Saline 1,000 ML 150 MEQ IV (21:01)
[2018-11-04 21:11] LABS: Bedside Glucose 252 mg/dL (70-110)
[2018-11-04] MEDS: Insulin Lispro 100 UNIT/ML INSULN.PEN SQ (21:14)
[2018-11-04 22:56] VITALS: PULSE 79
[2018-11-05 02:21] LABS: Bedside Glucose 61 mg/dL (70-110)
[2018-11-05 02:21] LABS: Bedside Glucose 51 mg/dL (70-110)
[2018-11-05 02:45] VITALS: BP 97/61; PULSE 82; RESP 16; TEMP 36.6; O2SAT 98
[2018-11-05 02:56] LABS: Bedside Glucose 76 mg/dL (70-110)
[2018-11-05 03:00] VITALS: PULSE 85
[2018-11-05] MEDS: Potassium Chloride 40 MEQ in 0.9% Normal Saline 1,000 ML 150 MEQ IV (03:47)
[2018-11-05 05:56] LABS: Bedside Glucose 76 mg/dL (70-110)
[2018-11-05 06:37] LABS: Anion Gap 3 (5-15); BUN 10 mg/dL (7-18); BUN/Creat Ratio 13.1 RATIO (10-20); Calcium,Total 7.8 mg/dL (8.5-10.1); Chloride 112 mmol/L (98-107); Creatinine, Serum 0.76 mg/dL (0.70-1.30); EST Glomerular Filtration Rate 127 mL/min (>60); Est Glom Filt Rate - Afr Amer 154 mL/min (>60); Estimated Creatinine Clearance 121.62 ml/min; Glucose 72 mg/dL (74-106); Sodium Level 144 mmol/L (136-145)
[2018-11-05 07:02] VITALS: O2SAT 98
[2018-11-05 07:03] VITALS: PULSE 78
[2018-11-05] MEDS: Acetaminophen 325 MG Tablet 650 MG PO (08:10)
--- NOTE | 2018-11-05 09:38 | DCINST_ITS ---
- Discharge Diagnoses Current Active Problems: Current Active and Chronic Problems (Last Reviewed 11/05/18 @ 06:25 by Noah Diamond MD) Acute hyperglycemia (Acute) You will use the following diet at home:: Calorie/Carbohydrate Controlled (specify 1200, 1400, etc) Your food should be the consistency of: Regular Your liquids should be the consistency of: Regular/Thin Discharge Activity: Return to Normal Activity Call your doctor if you observe: Fever of 101 or Higher, Shortness of breath, Dizziness, Fainting spells, Swelling in the ankles, Chest pain, Increased palpitations (irregular heartbeat) Allergies/Adverse Reactions: Allergies No Known Allergies Allergy (Verified 11/04/18 20:10) Medications to take at Discharge Insulin Glargine,Hum.rec.anlog [Basaglar Kwikpen U-100] 26 unit SC DAILY 09/14/18 Escitalopram Oxalate [Lexapro] 20 mg PO DAILY 11/04/18 Glucagon,Human Recombinant [Glucagon Emergency Kit] 1 mg IM ONCE 11/04/18 Omeprazole 40 mg PO DAILY 11/04/18 Insulin Aspart [Novolog Flexpen] See Rx Instructions .ROUTE .COMPLEX #1 ml 11/05/18 The following prescriptions were given: Insulin Aspart [Novolog Flexpen] See Rx Instructions .ROUTE .COMPLEX #1 ml Primary Care Physician: Alexandre Katz MD [Primary Care Provider] - Please follow up with your Primary Care Physician in: 3-5 days Test Results: Test results from this visit will be discussed in further detail at your follow- up appointment, if applicable. Please Follow Up With: Endocrinology
[2018-11-05 09:42] VITALS: BP 115/69; PULSE 89; RESP 12; TEMP 36.8; O2SAT 98
--- NOTE | 2018-11-05 09:43 | DS.PCM_ITS ---
Discharge Date and Diagnosis - Problem List Patient Problems: Active and Suspected Problems (Last Reviewed 11/05/18 @ 06:25 by Noah Diamond MD) Acute hyperglycemia (Acute) Date of Admission: 11/04/18 Date of Discharge: 11/05/18 - Primary Discharge Diagnosis Active and Suspected Problems (Last Reviewed 11/05/18 @ 06:25 by Noah Diamond MD) Acute hyperglycemia (Acute) - Secondary Discharge Diagnosis Chronic Problems (Last Reviewed 11/05/18 @ 06:25 by Noah Diamond MD) Hypersomnolence (Chronic) GERD (gastroesophageal reflux disease) (Chronic) Depression with anxiety (Chronic) Vision problems (Chronic) Ulcer (Chronic) Hearing problem (Chronic) Arthritis (Chronic) Headache, migraine (Chronic) Diabetes type 1, controlled (Chronic) Dx : age 9 Last exacerbation : DKA : 04/09 Hypoglycemic episode : never ER visit : 04/09 Anxiety and depression (Chronic) Diabetes mellitus type I (Chronic) Depression (Chronic) PUD (peptic ulcer disease) (Chronic) Hospital Course and Treatment Imaging Results: None Consults: None Operations: None Procedures: None Summary of Care Provided: Per HPI: The patient is a 28 year old M with a significant history of tobacco abuse; anxiety and depression; and Type 1 Diabetes who presents with a myriad of symptoms including lethargy; headache; epistaxis; no vomiting; nausea; imbalance on his feet; and abdominal pain. Per family patient fell when he was getting off a car. At the emergency department his blood glucose was severely elevated and his pH was alkalotic. With IV fluids his blood glucose decreased. Hospital Course: 1. Acute hyperglycemia/MIREILLE/type 1 [id number] male with a history of type 1 diabetes who is on both a long-acting insulin and a sliding scale presents with lethargy, headache, and being unsteady on his feet. He fell when he was getting out of the car per the family and was brought into the hospital. On admission he is found to have a blood sugar of over 500, pH is 7.6, PCO2 of 18.1, and a bicarb of 18. He was given multiple liters of fluid as well as his insulin and by the day of discharge his MIREILLE had resolved from a 1.37 creatinine to 0.76. His blood sugar also is now normal at 76. He states that he does not have any financial difficulties in getting his insulin however his NovoLog pen the initial prescription he lost so he was using an older prescription that apparently was . Will provide a new NovoLog pen on discharge and I did express to him that he needs to find a new human geography faculty member since the one here at [facility] has left. 2. His other medical diagnoses were evaluated and his home medications were continued where appropriate. This was discussed with the patient and he expressed understanding and agreed to the plan Patient Problems: Active and Suspected Problems (Last Reviewed 11/05/18 @ 06:25 by Noah Diamond MD) Acute hyperglycemia (Acute) - Physical Exam General: Alert, Oriented x3, Cooperative, No apparent distress HEENT: Atraumatic, PERRLA, EOMI, Normocephalic Oral: Dry Mucosa, - - Poor dentition Neck: Supple, No JVD Lungs: Clear to auscultation, Normal air movement, No rhonchi, No wheeze, No rales Cardiovascular: Regular rate, Regular Rhythm, Normal S1, Normal S2, No murmurs Abdomen: Soft, Non Tender, Non-Distended, No Hepato-splenomegaly Extremities: No edema, Capillary Refill Less than 3 Seconds Skin: No rashes, No breakdown Neurological: Neuro grossly intact, Sensory exam intact to light touch and pain Psych/Mental Status: Normal Affect, Appropriate Vital Signs Temp Pulse Resp BP Pulse Ox 97.8 F 78 16 97/61 98 11/05/18 02:45 11/05/18 07:03 11/05/18 02:45 11/05/18 02:45 11/05/18 07:02 Oxygen Delivery Method Room Air Weight: 133 lb 6.075 oz Body Mass Index (BMI) 20.9 Finger Stick Blood Glucose 386 Intake and Output for Last 24 Hours 11/03/18 11/04/18 11/05/18 23:59 23:59 23:59 Intake Total 1159 / 1159 989 / 989 Balance 1159 / 1159 989 / 989 Laboratory Tests Past 24 Hrs 11/04/18 11/04/18 11/04/18 15:59 15:59 15:59 WBC 5.4 RBC 4.77 Hgb 14.6 Hct 40.1 MCV 84.1 MCH 30.6 MCHC 36.4 H RDW 12.1 RDW Differential 36.3 Plt Count 233 MPV 11.0 Immature Gran % (Auto) 0.000 Neut % (Auto) 72.7 H Lymph % (Auto) 17.5 L [place] % (Auto) 6.5 Eos % (Auto) 2.6 Baso % (Auto) 0.7 Absolute Neuts (auto) 3.9 Absolute Lymphs (auto) 0.94 Total Counted Not Reportable Specimen Type Sample Site pH Bicarbonate Actual POC Total CO2 Base Excess O2 Saturation ABG pCO2 ABG pO2 Carrillo Test O2 Delivery Device Blood Gas Notified Whom Blood Gas Notified Time Sodium 135 L Potassium 3.8 Chloride 98 Carbon Dioxide 23.0 Anion Gap 14 BUN 19 H Creatinine 1.37 H Estim Creat Clear Calc 67.78 Est GFR (MDRD) Af Amer 78 Est GFR (MDRD) Non-Af 65 BUN/Creatinine Ratio 13.9 Glucose 586 H* Calcium 9.2 Troponin I < 0.015 Acetone Level SMALL H 11/04/18 11/04/18 11/05/18 16:25 18:45 05:40 WBC RBC Hgb Hct MCV MCH MCHC RDW RDW Differential Plt Count MPV Immature Gran % (Auto) Neut % (Auto) Lymph % (Auto) Luna % (Auto) Eos % (Auto) Baso % (Auto) Absolute Neuts (auto) Absolute Lymphs (auto) Total Counted Specimen Type ART Sample Site L Radial pH 7.60 H* Bicarbonate Actual 18.0 L POC Total CO2 19 Base Excess -4 L O2 Saturation 100 H ABG pCO2 18.1 L* ABG pO2 133 H Carrillo Test POS O2 Delivery Device Room Air Blood Gas Notified Whom ED MD Blood Gas Notified Time 1624 Sodium 141 144 Potassium 3.7 4.0 Chloride 111 H 112 H Carbon Dioxide 28.0 29.0 Anion Gap 2 L 3 L BUN 14 10 Creatinine 0.94 0.76 Estim Creat Clear Calc 98.79 121.62 Est GFR (MDRD) Af Amer 121 154 Est GFR (MDRD) Non-Af 100 127 BUN/Creatinine Ratio 15.0 13.1 Glucose 262 H 72 L Calcium 7.4 L 7.8 L Troponin I Acetone Level POC Glucose 11/05/18 11/05/18 11/05/18 05:49 02:50 02:16 POC Glucose 76 76 61 L 11/05/18 11/04/18 11/04/18 01:42 20:58 17:12 POC Glucose 51 L 252 H 386 H 11/04/18 15:45 POC Glucose > 500 H* Discharge Activity: Return to Normal Activity Call your doctor if you observe: Fever of 101 or Higher, Shortness of breath, Dizziness, Fainting spells, Swelling in the ankles, Chest pain, Increased palpitations (irregular heartbeat) Home Medications: Medications to take at Discharge Insulin Glargine,Hum.rec.anlog [Basaglar Kwikpen U-100] 26 unit SC DAILY 09/14/18 Escitalopram Oxalate [Lexapro] 20 mg PO DAILY 11/04/18 Glucagon,Human Recombinant [Glucagon Emergency Kit] 1 mg IM ONCE 11/04/18 Omeprazole 40 mg PO DAILY 11/04/18 Insulin Aspart [Novolog Flexpen] See Rx Instructions .ROUTE .COMPLEX #1 ml 11/05/18 Following Prescrptions Were Given to Patient: Insulin Aspart [Novolog Flexpen] See Rx Instructions .ROUTE .COMPLEX #1 ml Primary Care Physician: Alexandre Katz MD [Primary Care Provider] - Please follow up with your Primary Care Physician in: 3-5 days Please Follow Up With: Endocrinology Disposition: Home Minutes spent on discharge:: 35 Patient Condition:: Stable Medical Necessity - Tobacco Use Smoking Status: Current every day smoker Tobacco Use: Cigarettes Meaningful Use Info Meaningful Use Diagnoses (Choose all that apply): None applicable Code Visit OBSV E&M: 72571 Observation care discharge
--- NOTE | 2018-11-05 12:54 | CASEMGMT ---
RN AMOL DRIVER EDUCATION INSTRUCTOR CM to room to meet with patient for initial transition planning/care coordination assessment. RN AMOL introduced self and role at [facility]. Pt voices understanding and consents to assessment at this time. Pt resting in bed in no distress at this time. Pt is A/O at this time and answers all questions appropriately. Care providers, pharmacy, and demographics verified at this time. PCP: [facility]: was seeing ADEBAYO Blanco, endocrinology, but is not established with another whiting can worker since ADEBAYO quit her practice. Pt provided with a list of local endocrinologists per [employer] Website. [facility]erred [facility]acy: [facility] Insurance: [employer] Prescription Benefit: Yes Living Will/HPOA: does not have LW or HCPOA . Interested in more information but does not want to talk with SW at this time to complete paperwork. Provided information on advanced directives and given Social Service rac card with number to call if chooses in the future to utilize [facility] social work for advanced directive completion. LNOK: Eris Coffey Living Arrangements: Lives with a roommate and the roommates family. Independent. Transportation: Pt states drives self and states no transportation concerns at this time. DME: has a glucometer. is works properly and he has all needed supplies. Pt states no need for further DME at this time. HHC/SNF: No history of HHC or SNF. No needs identified. Pt wishes to return home and has no concerns with going home at time of discharge. Discussed Diabetic Clinic with pt and provided information on it. Pt made aware if he is interested in going to it, to contact his PCP so they can send referral. CM to follow for any further discharge planning/needs. Pt voices no further concerns/needs at this time. Advised pt to ask for CM if any further questions/concerns/needs arise. Voices understanding. PLAN: Home Babar GUEVARA RN, CM
== END 2018-11-05 09:17 | disposition home or self-care (01) ==
LOC: ED 16:40 → PCU 19:53
PROVIDERS: Admitting Provider Hospitalist; Emergency Provider Emergency Medicine; Family Provider Internal Medicine; PCP Internal Medicine; Referring Provider Hospitalist; Visit Provider Family Medicine
DX: E10.65 Type 1 diabetes mellitus with hyperglycemia (principal); Z79.4 Long term (current) use of insulin; Z79.899 Other long term (current) drug therapy; K21.9 Gastro-esophageal reflux disease without esophagitis; F41.8 Other specified anxiety disorders; M19.90 Unspecified osteoarthritis, unspecified site; Z87.11 Personal history of peptic ulcer disease; F17.210 Nicotine dependence, cigarettes, uncomplicated; N17.9 Acute kidney failure, unspecified
CPT/HCPCS: 36415; 36600; 71045; 80048; 82009; 82803; 82962; 84484; 85025; 87040; 93005; 96361; 96374; 96375; 99218; 99284; 99406; J7030; J7040; A4216; G0378; J2405

== ENCOUNTER 2018-11-28 07:35 | Emergency (ER) | payer MEDICAID, SELFPAY ==
[2018-11-04 20:08] VITALS: BMI 20.9
[2018-11-28] VITALS (7 sets, daily range): BP systolic 99–134; BP diastolic 64–81; PULSE 77–104; RESP 13–22; TEMP 36.5–36.8; O2SAT 97–100; BMI 20.5
[2018-11-28 07:56] LABS: Bedside Glucose > 500 mg/dL (70-110)
[2018-11-28] MEDS: 0.9% Normal Saline 1,000 ML 1000 ML IV ×2 (08:11→08:17)
[2018-11-28] MEDS: Ondansetron 4 MG/2 ML Vial IV (08:11)
[2018-11-28 08:16] LABS: Absolute Lymphocyte Count 0.99 X10^3/ul (0.83-4.51); Basophil# 0.04 X10^3/uL; Basophil% 0.7 % (0-1); Eosinophil# 0.11 X10^3/uL; Eosinophils% 1.9 % (0-5); Hematocrit 42.3 % (40-54); Hemoglobin 15.3 g/dl (13.0-16.5); Lymphocyte # 0.99 X10^3/ul (4.0); Lymphocyte % 17.5 % (19-41); Mean Corp Hgb Conc 36.2 g/gl (32-36); Mean Corpuscular Hgb 31.4 pg (27.0-32.0); Mean Corpuscular Volume 86.7 fL (80-94); Mean Platelet Vol. 10.3 fl (6.2-12.0); Monocyte# 0.57 X10^3/uL; Monocyte% 10.1 % (0-10); Neutrophil # 3.95 X10^3/uL (2.7-7.7); Neutrophil % 69.6 % (47-70); Platelet Count 247 K/mm3 (150-450); RBC Distribution Width CV 11.9 % (11.6-14.6); RBC Distribution Width SD 37.6 fl (35.1-43.9); Red Blood Count 4.88 M/mm3 (4.6-6.2); White Blood Count 5.7 K/mm3 (4.4-11.0)
[2018-11-28 08:19] LABS: POSITIVE COUNT NO; POSITIVE DIFFERENTIAL NO; POSITIVE MORPHOLOGY NO
--- NOTE | 2018-11-28 08:22 | RAD_ITS ---
STUDY: X-RAY CHEST REASON FOR EXAM: Male, 28 years old. Chest pain. TECHNIQUE: Single AP portable view of the chest. COMPARISON: 11/04/2018. FINDINGS: The lungs are clear and expanded. There is no demonstrated pleural abnormality. Normal size heart. Normal mediastinum and maria luisa. Normal visualized pulmonary arteries. Normal visualized aortic arch and descending thoracic aorta. Normal visualized thoracic spine. Normal visualized ribs, clavicles, and shoulders. There is no demonstrated abnormality of the visualized soft tissue structures of the upper abdomen. RAD/Chest 1 View (Portable) IMPRESSION: Normal x-ray examination of the chest. Electronically Signed: Selvin Steele MD at 8:50 EDT Tel , Service support ,
[2018-11-28 08:38] LABS: AST(SGOT) 11 U/L (15-37); Alanine Aminotransfer ALT/SGPT 13 U/L (16-61); Albumin, Serum 4.2 g/dL (3.2-5.0); Alkaline Phosphatase 134 U/L (45-117); Anion Gap 8 (5-15); BUN 15 mg/dL (7-18); BUN/Creat Ratio 10.6 RATIO (10-20); Bilirubin, Direct 0.43 mg/dL (0.00-0.30); Calcium,Total 9.2 mg/dL (8.5-10.1); Chloride 94 mmol/L (98-107); Creatinine, Serum 1.42 mg/dL (0.70-1.30); EST Glomerular Filtration Rate 62 mL/min (>60); Est Glom Filt Rate - Afr Amer 75 mL/min (>60); Estimated Creatinine Clearance 62.08 ml/min; Globulin 3.8 g/dL (2.2-4.2); Glucose 741 mg/dL (74-106); Lipase 39 U/L (73-393); Potassium 3.8 mmol/L (3.5-5.1); Sodium Level 130 mmol/L (136-145)
--- NOTE | 2018-11-28 08:38 | ED.RN ---
LAB CALLS WITH CRITICAL RESULT, BLOOD GLUCOSE [id number], DR. DIOR MADE AWARE.
[2018-11-28 08:43] LABS: Bacteria 0 SEEN /hpf (None Seen); Mucous, Urine 0 SEEN /hpf (<or=2+); Red Blood Cells-Urine 0 SEEN /hpf (0-5); Squamous Epithelial Cells - UA 0 SEEN /hpf (0-5); White Blood Cells 0 SEEN /hpf (0-5)
[2018-11-28 08:45] LABS: Color, Urine Straw (Yellow); Glucose, Dipstick 1000 mg/dl (Normal); Ketone-Dipstick 15 mg/dl (Negative); Leukocyte Esterase-Dipstick Negative /ul (Negative); Nitrite-Dipstick Negative (Negative); Occult Blood-Urine Negative /ul (Negative); Protein-Dipstick Negative (Negative); Specific Gravity, Urine 1.005 (1.002-1.030); Urine Bilirubin Dipstick Negative (Negative); Urine Clarity Clear (Clear); Urine Urobilinogen Normal (Normal); Urine pH 6.5 (5.0 - 8.0)
--- NOTE | 2018-11-28 08:55 | US_ITS ---
STUDY: ABDOMINAL ULTRASOUND - RIGHT UPPER QUADRANT REASON FOR VISIT: Male, 28 years old. Abdominal pain. TECHNIQUE: Ultrasound evaluation of the right upper quadrant was performed with real-time and static sierra-scale imaging. TECHNICAL QUALITY: Adequate. COMPARISON: None. FINDINGS: Liver: The liver measures 11.9 cm. There is normal echogenicity of the liver. The bile ducts are within normal limits. There is hepatic color flow. The direction of portal flow is hepatopetal. There is no demonstrated mass lesion. Gallbladder: Normal distended gallbladder. The gallbladder wall measures 2 mm. There is a negative sonographic Erwin's sign. There is no pericholecystic fluid. There are no gallstones. Common Bile Duct (C.B.D.): The common bile duct measures 2.4 mm. Pancreas: Normal size of the head, body and tail of the pancreas. There is normal echogenicity of the pancreas. There is no demonstrated pancreatic mass or cyst. Right Kidney: Normal size of the right kidney. The right kidney measures 11.3 x 4.7 x 5.1 cm. Normal renal cortex. The right cortex measures 1.9 cm. There is no demonstrated renal mass or cyst. There is no right hydronephrosis. US/Gallbladder IMPRESSION: Normal right upper quadrant ultrasound examination. Electronically Signed: Selvin Steele MD at 10:13 EDT Tel , Service support ,
[2018-11-28 10:40] LABS: Bedside Glucose 395 mg/dL (70-110)
[2018-11-28] MEDS: 0.9% Normal Saline 1,000 ML 150 ML IV (11:10)
[2018-11-28] MEDS: Insulin Lispro 100 UNIT/ML INSULN.PEN 6 UNIT SC (11:10)
[2018-11-28 11:45] LABS: Bedside Glucose 360 mg/dL (70-110)
[2018-11-28 12:35] LABS: Bedside Glucose 309 mg/dL (70-110)
--- NOTE | 2018-11-28 13:26 | ED.DCSUM_ITS ---
- ER Visit Summary Date of Service: 11/28/18 Chief Complaint: Nausea and vomiting History of Present Illness: The patient is a 28 M who presents with a 3-day history of nausea and vomiting. He is complaining of pain to the right upper quadrant and right flank area for the past 1 week. He is a type I diabetic and states his blood sugars have been reading high. Physical Examination: Blood pressure is 134/81, temperature 97.7, heart rate 104, respiratory rate 22, pulse ox 97% on room air. Patient sitting upright in bed no acute distress. Head neck examination was dry mucous membranes. Heart is tachycardic. Lung sounds are clear. Abdomen is soft with mild tenderness in the right upper quadrant. No guarding or rebound. Hypoactive bowel sounds noted. Back examination revealed no focal CVA tenderness. No rash or lesions. Test Results: CBC is unremarkable. Chemistry studies significant for a glucose of 741. Sodium is 130 and chloride is 94. Bicarb and anion gap are normal. Creatinine is 1.42. LFTs reveal a total bili of 3.2 with direct bili 0.43. Alk phos is 134. Urinalysis shows glucose but no sign of infection. Serum acetone is small. Portable chest x-ray is unremarkable. Right upper quadrant ultrasound is normal. Emergency Department Course and Treatment: Patient was initially given Zofran and 2 L of IV fluid. Repeat blood sugar is 395. He was given 6 units of insulin along with further IV fluids. Repeat blood sugars are 360 and 309. At this time he is tolerating p.o. without difficulty does feel improved. He is discharged with a prescription for Zofran. He will continue to monitor his blood sugars closely. Treatment Plan: [] Disposition: Discharge Impression: Hyperglycemia, improved This note was generated with [employer] dictation software. It may contain incorrect words, spelling, and punctuation that were not noted in review of the chart prior to signing ED Disposition - Plan for ED Patient: Disposition: Home or Assisted Living Instructions: ED Hyperglycemia Diabetic Prescriptions: Ondansetron [Zofran Odt] 4 mg PO Q8H PRN PRN #10 tablet PRN Reason: Nausea Referrals: Alexandre Katz MD [Primary Care Provider] - 1 Week
== END 2018-11-28 13:38 | disposition home or self-care (01) ==
PROVIDERS: Emergency Provider Emergency Medicine; Family Provider Internal Medicine; PCP Internal Medicine
DX: E10.65 Type 1 diabetes mellitus with hyperglycemia (principal); R10.11 Right upper quadrant pain; R11.2 Nausea with vomiting, unspecified; R19.7 Diarrhea, unspecified; F32.9 Major depressive disorder, single episode, unspecified; Z72.0 Tobacco use; Z79.4 Long term (current) use of insulin; Z79.899 Other long term (current) drug therapy
CPT/HCPCS: 71045; 76705; 80048; 80076; 81001; 82009; 82962; 83690; 85025; 96361; 96374; 99285; J7030; A4216; J2405

== ENCOUNTER → 2019-03-12 10:44 | Outpatient (CLI) | payer MEDICAID, SELFPAY ==
[2019-03-12 09:59] VITALS: BMI 20.5
--- NOTE | 2019-03-12 10:47 | EKG12_ITS ---
Test Reason : CP Blood Pressure : / mmHG Vent. Rate : 094 BPM Atrial Rate : 094 BPM P-R Int : 140 ms QRS Dur : 082 ms QT Int : 342 ms P-R-T Axes : 078 065 071 degrees QTc Int : 427 ms Normal sinus rhythm Normal ECG Confirmed by JOSE RAFAEL CHAPMAN, AGUSTO ([id number]), proposal editor SHIRA FITCH ([id number]) on 03/15/2019 9:21:54 AM Referred By: Alexandre Katz Confirmed By:AGUSTO MANTILLA MD
[2019-03-12 13:32] LABS: Bacteria 0 SEEN /hpf (None Seen); Red Blood Cells-Urine 0 SEEN /hpf (0-5)
[2019-03-12 13:40] LABS: Color, Urine Yellow (Yellow); Glucose, Dipstick Normal (Normal); Ketone-Dipstick Negative (Negative); Leukocyte Esterase-Dipstick 25 /ul (Negative); Nitrite-Dipstick Negative (Negative); Occult Blood-Urine Negative /ul (Negative); Protein-Dipstick 15 mg/dl (Negative); Specific Gravity, Urine 1.015 (1.002-1.030); Urine Bilirubin Dipstick Negative (Negative); Urine Clarity Clear (Clear); Urine Urobilinogen Normal (Normal)
[2019-03-12 13:59] LABS: Mucous, Urine 1+ /hpf (<or=2+)
[2019-03-12 14:00] LABS: Hyaline Cast 0-5 SEEN /lpf (0-5)
[2019-03-12 14:01] LABS: White Blood Cells 0-5 SEEN /hpf (0-5)
[2019-03-12 14:02] LABS: Transitional Epithelial - Ur 0-5 SEEN /hpf (0-5)
[2019-03-12 14:03] LABS: Squamous Epithelial Cells - UA 0 SEEN /hpf (0-5)
== END ==
PROVIDERS: Family Provider Internal Medicine; PCP Internal Medicine; Referring Provider Internal Medicine; Visit Provider Internal Medicine
DX: R07.9 Chest pain, unspecified (principal); R35.0 Frequency of micturition
CPT/HCPCS: 81001; 93005

== ENCOUNTER → 2019-03-24 06:55 | Outpatient (CLI) | payer MEDICAID, SELFPAY ==
[2019-02-05 09:31] VITALS: BMI 20.5
[2019-03-12 09:59] VITALS: BMI 20.5
--- NOTE | 2019-03-24 09:57 | NEURO_ITS ---
NCS and/or EMG Patient Report Ordering Doctor: Alexandre Katz DATE OF SERVICE: 03/24/19 This is a bilateral upper extremity nerve conduction study performed on this 28-year-old male with a history of diabetes with a hemoglobin A1c greater than 10, numbness and pain in hands bilaterally. Bilateral upper extremity sensory motor nerve conduction study is performed demonstrating moderate to severe prolongation of the median motor and sensory distal latencies with preservation of amplitudes and mild slowing of conduction velocities. The ulnar motor and sensory and radial sensory responses are normal. The median F wave latencies are mildly prolonged bilaterally. Impression: Abnormal nerve conduction study of the bilateral upper extremities consistent here carpal tunnel syndrome bilaterally, this is likely complicated by the patient's poorly controlled diabetes. Dictated using [employer] software, not proofread
== END ==
PROVIDERS: Family Provider Internal Medicine; PCP Internal Medicine; Referring Provider Internal Medicine; Visit Provider Internal Medicine
DX: G56.03 Carpal tunnel syndrome, bilateral upper limbs (principal)
CPT/HCPCS: 95911

== ENCOUNTER → 2019-04-13 13:35 | Outpatient (CLI) | payer MEDICAID, SELFPAY ==
[2019-04-13 13:30] VITALS: BMI 20.5
--- NOTE | 2019-04-13 13:36 | RAD_ITS ---
STUDY: X-RAY - RIGHT WRIST REASON FOR EXAM: Pain. TECHNIQUE: 3 view(s) of the wrist were obtained. COMPARISON: None. FINDINGS: Normal visualized distal radius and ulna. Normal radiocarpal articulation. Normal distal radioulnar articulation. Normal carpal bones. Normal carpal articulations. Normal carpometacarpal articulation of the thumb. Normal second through fifth carpometacarpal articulations. Normal visualized metacarpal bones. The soft tissue structures are unremarkable. RAD/Wrist min 3 Views IMPRESSION: Normal x-ray examination of the right wrist. Electronically Signed: Fredrick Gross MD at 14:24 EDT Tel , Service support ,
--- NOTE | 2019-04-13 13:36 | RAD_ITS ---
STUDY: X-RAY - LEFT WRIST REASON FOR EXAM: Pain. TECHNIQUE: 3 view(s) of the wrist were obtained. COMPARISON: None. FINDINGS: Normal visualized distal radius and ulna. Normal radiocarpal articulation. Normal distal radioulnar articulation. Normal carpal bones. There is a small bone island in the capitate. Normal carpal articulations. Normal carpometacarpal articulation of the thumb. Normal second through fifth carpometacarpal articulations. Normal visualized metacarpal bones. The soft tissue structures are unremarkable. RAD/Wrist min 3 Views IMPRESSION: Normal x-ray examination of the left wrist. Electronically Signed: Fredrick Gross MD at 14:22 EDT Tel , Service support ,
== END ==
PROVIDERS: Family Provider Internal Medicine; PCP Internal Medicine; Referring Provider Orthopaedic Surgery; Visit Provider Orthopaedic Surgery
DX: G56.03 Carpal tunnel syndrome, bilateral upper limbs (principal)
CPT/HCPCS: 73110

== ENCOUNTER 2019-05-05 23:23 | Emergency (ER) | payer MEDICAID, SELFPAY ==
[2019-04-13 13:30] VITALS: BMI 20.5
[2019-05-05 23:25] VITALS: BP 137/79; PULSE 114; RESP 18; TEMP 36.6; O2SAT 97; BMI 21.6
--- NOTE | 2019-05-05 23:44 | ED.DCSUM_ITS ---
History of Present Illness Chief Complaint: Nausea/Vomiting Informant: Patient, Family Narrative: Presents with nausea and vomiting. Per his family the patient has been vomiting since yesterday frequently. They cannot give me in a time or amount. They stated that he has not been feeling well today. He stated he has not taken his insulin today. He takes a long-acting at night and short acting with meals. They stated his blood sugar was just over 200 approximately 3 hours ago. He does have a history of noncompliance with diabetes type 1. He does have a history of diabetic ketoacidosis in the past. Patient stated he has nausea medicine at home but has not taken it. He states that he feels shaky. Patient denies any diarrhea. Denies any other symptoms. - Past Medical History (1) Acute hyperglycemia Status: Acute (2) Acute kidney injury Status: Acute (3) Altered mental status Status: Acute (4) DKA (diabetic ketoacidoses) Status: Acute (5) DKA, type 1 Status: Acute (6) Dehydration Status: Acute (7) Diabetes Status: Acute (8) Diarrhea Status: Acute (9) Hypoglycemia Status: Acute (10) Hypomagnesemia Status: Acute (11) N&V (nausea and vomiting) Status: Acute (12) Tachycardia Status: Acute (13) Anxiety and depression Status: Chronic (14) Arthritis Status: Chronic (15) Depression Status: Chronic (16) Depression with anxiety Status: Chronic (17) Diabetes mellitus type I Status: Chronic (18) Diabetes type 1, controlled Status: Chronic Comment: Dx : age 9 Last exacerbation : DKA : 04/09 Hypoglycemic episode : never ER visit : 04/09 (19) Erectile dysfunction Status: Chronic (20) GERD (gastroesophageal reflux disease) Status: Chronic (21) Headache, migraine Status: Chronic (22) Hearing problem Status: Chronic (23) Hypersomnolence Status: Chronic (24) PUD (peptic ulcer disease) Status: Chronic (25) Ulcer Status: Chronic (26) Vision problems Status: Chronic Past Medical History - Allergies and Home Meds Allergies/Adverse Reactions: Allergies No Known Allergies Allergy (Verified 05/05/19 23:27) Primary Care Physician: Alexandre Katz MD [Primary Care Provider] - Prior records reviewed: Yes Past Medical History: - - See problem list Surgical History: no surgical history Lives: With Family Smoking Status: Current every day smoker Alcohol: None Drugs: None - Family History Maternal Family History: Family History (Last Reviewed 03/12/19 @ 09:56 by Saray Tavera) Grandfather Myocardial infarction COPD (chronic obstructive pulmonary disease) Brother Depression Uncle Diabetes Father Diabetes Aunt Diabetes Family History: Reports: No pertinent history Paternal Family History: Family History (Last Reviewed 03/12/19 @ 09:56 by Saray Tavera) Grandfather Myocardial infarction COPD (chronic obstructive pulmonary disease) Brother Depression Uncle Diabetes Father Diabetes Aunt Diabetes Family History: Reports: Diabetes - AUNT AND UNCLES HAS H/O DM 2 Review of Systems General: Denies: Chills, Fever, Sweats Eyes: Denies: Visual changes - bilaterally, Diplopia ENT: Denies: Rhinorrhea, Sore throat Cardiovascular: Denies: Chest pain, Palpitations Respiratory: Denies: Dyspnea, Cough, Dyspnea on exertion Gastrointestinal: Reports: Nausea, Vomiting. Denies: Abdominal pain, Diarrhea, Melena, Hematochezia Genitourinary: Denies: Dysuria, Hematuria, Frequency Musculoskeletal: Denies: Back pain, Extremity Pain Skin: Denies: Rash, Wounds Neurological: Reports: Weakness. Denies: Headache, Numbness Physical Exam Vital Signs/Narrative: Vital Signs Temp Pulse Resp BP Pulse Ox 05/05/19 23:25 97.9 F 114 H 18 137/79 H 97 General: Well nourished, Well developed, No Acute Distress Head: Normocephalic, Atraumatic Eyes: Perrl, EOMI ENT: Moist mucous membranes, No rhinorrhea Neck: Supple, Nontender Cardiovascular: Regular rate, Regular rhythm, No murmurs Respiratory: No distress, CTA bilaterally, Chest nontender Abdomen: Soft, Nontender, Nondistended, Normal bowel sounds Back: Nontender, Normal Inspection Extremities: Nontender, No edema Skin: Normal color, No rash Neurological: Alert, Oriented x3, Cranial nerves II-XII grossly intact, Normal Strength, Normal Sensation Psychological: Normal affect, Normal Mood Diagnostic/Tx/Re-eval Laboratory Results 05/05/19 05/05/19 05/05/19 23:38 23:38 23:58 WBC 13.3 H RBC 5.39 Hgb 16.5 Hct 45.5 MCV 84.4 MCH 30.6 MCHC 36.3 H RDW Std Deviation 35.3 RDW Coeff of Nathaniel 11.7 Plt Count 367 MPV 10.2 Immature Gran % (Auto) 0.200 Neut % (Auto) 91.3 H Lymph % (Auto) 5.4 L Isabella % (Auto) 2.6 Eos % (Auto) 0.1 Baso % (Auto) 0.4 Absolute Neuts (auto) 12.2 H Absolute Lymphs (auto) 0.72 L Nucleated RBC % 0 Sodium 134 L Potassium 4.5 Chloride 98 Carbon Dioxide 25.0 Anion Gap 11 BUN 13 Creatinine 1.17 Estim Creat Clear Calc 78.65 Est GFR (MDRD) Af Amer 94 Est GFR (MDRD) Non-Af 77 BUN/Creatinine Ratio 11.1 Glucose 520 H* Calcium 9.9 Total Bilirubin 2.00 H AST 14 L ALT 13 L Alkaline Phosphatase 119 H Total Protein 8.4 H Albumin 4.6 Globulin 3.8 Albumin/Globulin Ratio 1.2 Lipase 55 L POC Glucose 470 H* 05/06/19 02:07 WBC RBC Hgb Hct MCV MCH MCHC RDW Std Deviation RDW Coeff of Nathaniel Plt Count MPV Immature Gran % (Auto) Neut % (Auto) Lymph % (Auto) Isabella % (Auto) Eos % (Auto) Baso % (Auto) Absolute Neuts (auto) Absolute Lymphs (auto) Nucleated RBC % Sodium Potassium Chloride Carbon Dioxide Anion Gap BUN Creatinine Estim Creat Clear Calc Est GFR (MDRD) Af Amer Est GFR (MDRD) Non-Af BUN/Creatinine Ratio Glucose Calcium Total Bilirubin AST ALT Alkaline Phosphatase Total Protein Albumin Globulin Albumin/Globulin Ratio Lipase POC Glucose 410 H - Medical Decision Making Given IV fluids and Zofran. Lab work obtained. Lab work shows a mild white count of 13,000. Initial glucose is 520. No evidence of DKA with a normal bicarbonate. Patient also required some Phenergan and another dose of Zofran. He has had some mild intermittent vomiting. Blood sugars down to 250 after treatment with insulin times 2 subcutaneous doses. He will continue insulin at home and drink fluids. At this time I feel the patient just has a flareup of hyperglycemia likely related to not taking insulin and perhaps having a gastroenteritis. I do not feel he needs to be admitted. His liver function tests show mild abnormalities that he has had in the past. He has had a negative gallbladder ultrasound. I do not think this is related to biliary colic. Lipase is negative. Patient will follow-up as an outpatient given Zofran for home ED Disposition - Plan for ED Patient: Disposition: Home or Assisted Living Diagnosis: Diabetes mellitus with hyperglycemia, Nausea and vomiting Instructions: DIET, Vomiting or Diarrhea [6yr-Adult] Prescriptions: proMETHazine suppository [Phenergan Suppository] 25 mg RECTAL Q6H PRN PRN #6 suppos. PRN Reason: Nausea Prescription Printed proMETHazine tablet [Phenergan] 25 mg PO Q6H PRN PRN #10 tab PRN Reason: Nausea Prescription Printed Ondansetron [Zofran Odt] 4 mg PO Q8H PRN PRN #10 tab PRN Reason: Nausea Prescription Printed Referrals: Alexandre Katz MD [Primary Care Provider] -
[2019-05-05 23:50] LABS: Absolute Lymphocyte Count 0.72 X10^3/uL (0.83-4.51); Absolute Neutrophil Count 12.2 X10^3/uL (2.0-7.7); Basophil# 0.05 X10^3/uL; Basophil% 0.4 % (0-1); Eosinophil# 0.01 X10^3/uL; Eosinophils% 0.1 % (0-5); Hematocrit 45.5 % (40-54); Hemoglobin 16.5 g/dL (13.0-16.5); Lymphocyte # 0.72 X10^3/ul (4.0); Lymphocyte % 5.4 % (19-41); Mean Corp Hgb Conc 36.3 g/dL (32-36); Mean Corpuscular Hgb 30.6 pg (27.0-32.0); Mean Corpuscular Volume 84.4 fL (80-94); Mean Platelet Vol. 10.2 fl (6.2-12.0); Monocyte# 0.34 X10^3/uL; Monocyte% 2.6 % (0-10); NRBC Flagged by Analyzer 0 % (0-5); Neutrophil # 12.16 X10^3/uL (2.7-7.7); Neutrophil % 91.3 % (47-70); Platelet Count 367 K/mm3 (150-450); RBC Distribution Width CV 11.7 % (11.6-14.6); RBC Distribution Width SD 35.3 fl (35.1-43.9); Red Blood Count 5.39 M/mm3 (4.6-6.2); White Blood Count 13.3 K/mm3 (4.4-11.0)
[2019-05-05] MEDS: 0.9% Normal Saline 1,000 ML 1000 ML IV (23:53)
[2019-05-05] MEDS: Ondansetron 4 MG/2 ML Vial IV (23:53)
[2019-05-06 00:06] LABS: Bedside Glucose 470 mg/dL (70-110)
[2019-05-06 00:25] LABS: ALB/GLOB Ratio 1.2 RATIO (0.9-2.4); AST(SGOT) 14 U/L (15-37); Alanine Aminotransfer ALT/SGPT 13 U/L (16-61); Albumin, Serum 4.6 g/dL (3.2-5.0); Alkaline Phosphatase 119 U/L (45-117); Anion Gap 11 (5-15); BUN 13 mg/dL (7-18); BUN/Creat Ratio 11.1 RATIO (10-20); Calcium,Total 9.9 mg/dL (8.5-10.1); Chloride 98 mmol/L (98-107); Creatinine, Serum 1.17 mg/dL (0.70-1.30); EST Glomerular Filtration Rate 77 mL/min (>60); Est Glom Filt Rate - Afr Amer 94 mL/min (>60); Estimated Creatinine Clearance 78.65 ml/min; Globulin 3.8 g/dL (2.2-4.2); Glucose 520 mg/dL (74-106); Lipase 55 U/L (73-393); Potassium 4.5 mmol/L (3.5-5.1); Protein, Total 8.4 g/dL (6.4-8.2); Sodium Level 134 mmol/L (136-145)
[2019-05-06] MEDS: proMETHazine 25 MG/ML Syringe 6.25 MG IV (00:44)
[2019-05-06] MEDS: 0.9% Normal Saline 1,000 ML 1000 ML IV (00:45)
[2019-05-06] MEDS: Insulin Lispro 100 UNIT/ML INSULN.PEN 10 UNIT SC (01:23)
[2019-05-06 02:10] LABS: Bedside Glucose 410 mg/dL (70-110)
[2019-05-06] MEDS: Ondansetron 4 MG/2 ML Vial IV (02:12)
[2019-05-06 02:14] VITALS: BP 114/95; PULSE 99; RESP 20; O2SAT 100
[2019-05-06] MEDS: Insulin Lispro 100 UNIT/ML INSULN.PEN 15 UNIT SC (02:25)
[2019-05-06 03:36] LABS: Bedside Glucose 251 mg/dL (70-110)
[2019-05-06 03:43] VITALS: BP 123/91; PULSE 87; RESP 15; O2SAT 98
== END 2019-05-06 03:46 | disposition home or self-care (01) ==
PROVIDERS: Emergency Provider Emergency Medicine; Family Provider Internal Medicine; PCP Internal Medicine
DX: E10.65 Type 1 diabetes mellitus with hyperglycemia (principal); R11.2 Nausea with vomiting, unspecified; M19.90 Unspecified osteoarthritis, unspecified site; K21.9 Gastro-esophageal reflux disease without esophagitis; F17.200 Nicotine dependence, unspecified, uncomplicated; Z79.4 Long term (current) use of insulin; Z79.899 Other long term (current) drug therapy; Z87.11 Personal history of peptic ulcer disease
CPT/HCPCS: 80053; 82962; 83690; 85025; 96361; 96374; 96375; 96376; 99283; A4216; J2405

== ENCOUNTER 2019-05-28 18:01 | Emergency (ER) | payer MEDICAID, SELFPAY ==
[2019-05-28 18:03] VITALS: BP 127/84; PULSE 118; RESP 14; TEMP 36.8; O2SAT 100; BMI 19.3
--- NOTE | 2019-05-28 19:27 | ED.VISSUMM ---
- ER Visit Summary Date of Service: 05/28/19 Chief Complaint: Medication refill History of Present Illness: The patient is a 29 M who states he needs a medication refill. He ran out of his short acting insulin yesterday. He checked his blood sugar today and it read high. He uses Humalog on a sliding scale. He does have his long-acting insulin at home and he has been taking it. He feels a little bit nauseous but denies any vomiting. No rapid heart rate. Does not feel like he is in DKA. Physical Examination: Vital signs reviewed. HEENT exam unremarkable. Heart is regular rate and rhythm without murmurs. Lungs are clear to auscultation. Abdomen is soft and nontender. Extremities reveal no edema. Skin exam normal. Neurologic exam normal. Test Results: Blood glucose read high Emergency Department Course and Treatment: The patient's blood glucose is just over 500. He was given a dose of 20 units of subcutaneous Humalog here. His vital signs look good. He does not appear to be in DKA. He has not vomiting. He is well in tune with his diabetes and just ran out of his short acting insulin. He knows how to slide his insulin based on his sugars. I will give him a prescription for Humalog at home. He will call his doctors on Friday for follow-up Treatment Plan: [] Disposition: Discharge Impression: Medication refill Hyperglycemia Type 1 diabetes This note was generated with [employer] dictation software. It may contain incorrect words, spelling, and punctuation that were not noted in review of the chart prior to signing ED Disposition - Plan for ED Patient: Disposition: Home or Assisted Living Instructions: Med Refill Prescriptions: Insulin Lispro [Humalog Kwikpen] See Protocol SQ TID #1 pen Prescription Printed Referrals: Alexandre Katz MD [Primary Care Provider] -
[2019-05-28] MEDS: Insulin Lispro 100 UNIT/ML INSULN.PEN 20 UNIT SC (19:47)
[2019-05-28 19:56] LABS: Bedside Glucose > 500 mg/dL (70-110)
== END 2019-05-28 19:51 | disposition home or self-care (01) ==
LOC: ED 19:37
PROVIDERS: Emergency Provider Emergency Medicine; Family Provider Internal Medicine; PCP Internal Medicine
DX: E10.65 Type 1 diabetes mellitus with hyperglycemia (principal); Z76.0 Encounter for issue of repeat prescription; Z72.0 Tobacco use; Z79.4 Long term (current) use of insulin; Z79.899 Other long term (current) drug therapy
CPT/HCPCS: 82962; 99282

== ENCOUNTER → 2019-06-07 14:31 | Outpatient (CLI) | payer MEDICAID, SELFPAY ==
[2019-06-07 13:45] VITALS: BMI 20.5
[2019-06-07 16:13] LABS: T4 Free Direct 0.96 ng/dL (0.76-1.46); Thyroid Stim Hormone (TSH) 1.72 uIU/mL (0.358-3.74)
== END ==
PROVIDERS: Family Provider Internal Medicine; PCP Internal Medicine; Referring Provider Internal Medicine; Visit Provider Internal Medicine
DX: F41.8 Other specified anxiety disorders (principal)
CPT/HCPCS: 36415; 84439; 84443

== ENCOUNTER 2019-10-26 11:03 | Inpatient (IN) | payer MEDICAID, SELFPAY ==
[2019-09-09 17:27] VITALS: BMI 20.9
[2019-10-26] VITALS (10 sets, daily range): BP systolic 113–136; BP diastolic 58–105; PULSE 50–134; RESP 15–24; TEMP 36.1–37.9; O2SAT 98–100; BMI 22.6
[2019-10-26 11:20] LABS: Bedside Glucose 123 mg/dL (70-110)
--- NOTE | 2019-10-26 11:24 | EKG12_ITS ---
Test Reason : GEN ILLNESS Blood Pressure : / mmHG Vent. Rate : 083 BPM Atrial Rate : 083 BPM P-R Int : 110 ms QRS Dur : 086 ms QT Int : 378 ms P-R-T Axes : 014 068 067 degrees QTc Int : 444 ms Sinus rhythm with sinus arrhythmia with short UT Otherwise normal ECG Confirmed by ZAHIRA KRAFT ([id number]), business editor MAJO SAEED ([id number]) on 10/28/2019 3:03:18 PM Referred By: NORMA/MANNY Confirmed By:ZAHIRA KRAFT
--- NOTE | 2019-10-26 11:26 | ED.VIS.GEN ---
History of Present Illness Chief Complaint: General Illness Narrative: This patient is a 29-year-old male who presents with chief complaint of I am sick. He developed nausea and vomiting about 5 days ago. Over the last 2 to 3 days he has developed a productive cough and shortness of breath. He states that his ribs hurt. No diarrhea or abdominal pain. No fevers at home but has not checked temperature, does not complain of subjective fevers. He is a type I diabetic. He states his blood sugars were initially high but have been better the last couple days. No sick contacts. Past Medical History - Allergies and Home Meds Allergies/Adverse Reactions: Allergies No Known Allergies Allergy (Verified 10/26/19 11:07) Primary Care Physician: Alexandre Katz MD [Primary Care Provider] - Past Medical History: - - Type 1 diabetes, anxiety Surgical History: no surgical history Smoking Status: Current every day smoker - Family History Maternal Family History: Family History (Last Reviewed 09/09/19 @ 17:31 by Cristine Arana) Grandfather Myocardial infarction COPD (chronic obstructive pulmonary disease) Brother Depression Uncle Diabetes Father Diabetes Aunt Diabetes Family History: Reports: No pertinent history Paternal Family History: Family History (Last Reviewed 09/09/19 @ 17:31 by Cristine Arana) Grandfather Myocardial infarction COPD (chronic obstructive pulmonary disease) Brother Depression Uncle Diabetes Father Diabetes Aunt Diabetes Family History: Reports: Diabetes - AUNT AND UNCLES HAS H/O DM 2 Review of Systems All systems negative except as indicated General: Denies: Fever Eyes: Denies: Visual changes - bilaterally ENT: Denies: Bilateral ear pain Cardiovascular: Reports: Chest pain Respiratory: Reports: Dyspnea, Cough, Sputum Gastrointestinal: Reports: Nausea, Vomiting. Denies: Abdominal pain, Diarrhea Musculoskeletal: Denies: Myalgias, Arthralgias Skin: Denies: Rash Neurological: Denies: Headache Hematologic: Denies: Easy bruising Allergy: Denies: Uticaria Physical Exam Vital Signs/Narrative: Vital Signs Temp Pulse Resp BP Pulse Ox 10/26/19 11:04 97 F L 112 H 18 136/105 H 100 Inital Vital Signs reviewed: Yes General: Well nourished Head: Normocephalic Eyes: EOMI ENT: Moist mucous membranes Neck: Supple Cardiovascular: Regular rhythm, Tachycardia Respiratory: No distress, CTA bilaterally. Negative for: Rales, Rhonchi, Wheezing Abdomen: Soft, Nontender, Nondistended Skin: Normal color Neurological: Alert Psychological: - - Patient is angry Diagnostic/Tx/Re-eval Impressions Chest X-Ray 10/26/19 12:20 IMPRESSION: Normal x-ray examination of the chest. Electronically Signed: Crow Basilia, at 12:39 EDT , Service support , Abdomen/Pelvis CT 10/26/19 12:36 IMPRESSION: Borderline splenomegaly. Electronically Signed: Crow Basilia, at 13:32 EDT , Service support , 10/26/19 12:20 Chest 1 View (Portable) [RAD] Stat 10/26/19 12:36 Abdomen/Pelvis W IV Cont ONLY [CT] Stat Laboratory Results 10/26/19 10/26/19 10/26/19 11:13 11:54 11:54 WBC 18.4 H RBC 5.46 Hgb 17.6 H Hct 47.8 MCV 87.5 MCH 32.2 H MCHC 36.8 H RDW Std Deviation 37.1 RDW Coeff of Nathaniel 11.7 Plt Count 474 H MPV 10.0 Immature Gran % (Auto) 0.400 Neut % (Auto) 81.2 H Lymph % (Auto) 11.0 L [place] % (Auto) 6.9 Eos % (Auto) 0.1 Baso % (Auto) 0.4 Absolute Neuts (auto) 14.9 H Absolute Lymphs (auto) 2.02 Nucleated RBC % 0 Specimen Type Sample Site VBG pH VBG pO2 VBG O2 Sat (Calc) VBG O2 Content VBG Base Excess POC Mix VBG pCO2 Pt Tmp O2 Delivery Device Blood Gas Notified Whom Blood Gas Notified Time Sodium 139 Potassium 3.1 L Chloride 100 Carbon Dioxide 25.0 Anion Gap 14 BUN 24 H Creatinine 1.72 H Estim Creat Clear Calc 55.89 Est GFR (MDRD) Af Amer 60 Est GFR (MDRD) Non-Af 49 L BUN/Creatinine Ratio 14.0 Glucose 121 H Lactic Acid Calcium 11.2 H Total Bilirubin 2.40 H Direct Bilirubin 0.32 H AST 20 ALT 19 Alkaline Phosphatase 184 H Total Protein 9.8 H Albumin 5.3 H Globulin 4.5 H Lipase 20 L Acetone Level POC Glucose 123 H 10/26/19 10/26/19 10/26/19 11:54 12:11 12:31 WBC RBC Hgb Hct MCV MCH MCHC RDW Std Deviation RDW Coeff of Nathaniel Plt Count MPV Immature Gran % (Auto) Neut % (Auto) Lymph % (Auto) [place] % (Auto) Eos % (Auto) Baso % (Auto) Absolute Neuts (auto) Absolute Lymphs (auto) Nucleated RBC % Specimen Type AMADO Sample Site OTHER VBG pH 7.53 H VBG pO2 33 VBG O2 Sat (Calc) 72 H VBG O2 Content 25 VBG Base Excess 1 POC Mix VBG pCO2 Pt Tmp 28.6 L O2 Delivery Device Room Air Blood Gas Notified Whom ED Blood Gas Notified Time 1211 Sodium Potassium Chloride Carbon Dioxide Anion Gap BUN Creatinine Estim Creat Clear Calc Est GFR (MDRD) Af Amer Est GFR (MDRD) Non-Af BUN/Creatinine Ratio Glucose Lactic Acid 5.0 H* Calcium Total Bilirubin Direct Bilirubin AST ALT Alkaline Phosphatase Total Protein Albumin Globulin Lipase Acetone Level SMALL H POC Glucose - Medical Decision Making Patient was initially treated with IV fluids, Toradol, Zofran. He continued complain of nausea and vomiting and he was given IV Phenergan. He was given IV fluids. EKG shows sinus rhythm at a rate of 83. Laboratory studies as above notable for leukocytosis and lactic acidosis. Although he has small serum acetone his bicarbonate is normal and blood sugar is only 121. He is alkalotic rather than acidotic. I do not believe he is in diabetic ketoacidosis. He was empirically covered with IV Zosyn while undergoing further work-up. I did obtain a CT of the abdomen as he does have mild elevation of bilirubin. This shows splenomegaly but otherwise unremarkable. Urinalysis and urine tox are pending. Patient was discussed with the hospitalist who agrees to admit. ED Disposition - Plan for ED Patient: Disposition: Acute Care Hospital [facility] Diagnosis: SIRS (systemic inflammatory response syndrome), DM type 1 (diabetes mellitus, type 1), Hypokalemia Referrals: Alexandre Katz MD [Primary Care Provider] -
[2019-10-26] MEDS: Ketorolac 30 MG/ML Syringe IV (12:01)
[2019-10-26] MEDS: Ondansetron 4 MG/2 ML Vial IV ×2 (12:01→16:10)
[2019-10-26] MEDS: 0.9% Normal Saline 1,000 ML 1000 ML IV ×2 (12:01→12:10)
[2019-10-26 12:08] LABS: Absolute Lymphocyte Count 2.02 X10^3/uL (0.83-4.51); Absolute Neutrophil Count 14.9 X10^3/uL (2.0-7.7); Basophil# 0.07 X10^3/uL; Basophil% 0.4 % (0-1); Eosinophil# 0.01 X10^3/uL; Eosinophils% 0.1 % (0-5); Hematocrit 47.8 % (40-54); Hemoglobin 17.6 g/dL (13.0-16.5); Lymphocyte # 2.02 X10^3/ul (4.0); Mean Corp Hgb Conc 36.8 g/dL (32-36); Mean Corpuscular Hgb 32.2 pg (27.0-32.0); Mean Corpuscular Volume 87.5 fL (80-94); Monocyte# 1.27 X10^3/uL; Monocyte% 6.9 % (0-10); NRBC Flagged by Analyzer 0 % (0-5); Neutrophil # 14.91 X10^3/uL (2.7-7.7); Neutrophil % 81.2 % (47-70); Platelet Count 474 K/mm3 (150-450); RBC Distribution Width CV 11.7 % (11.6-14.6); RBC Distribution Width SD 37.1 fl (35.1-43.9); Red Blood Count 5.46 M/mm3 (4.6-6.2); White Blood Count 18.4 K/mm3 (4.4-11.0)
[2019-10-26] MEDS: proMETHazine 25 MG/ML Syringe 12.5 MG IV (12:18)
--- NOTE | 2019-10-26 12:20 | RAD_ITS ---
STUDY: X-RAY CHEST REASON FOR EXAM: Male, 29 years old. COUGH, DIABETIC ISSUES-BLOOD SUGAR UP AND DOWN. DEHYDRATION, NAUSEA AND VOMITING SINCE FRIDAY. PATIENT ALSO HAS BEEN SHAKING. TECHNIQUE: Single AP portable view of the chest. COMPARISON: Comparison is made with prior examination dated November 28, 2018. FINDINGS: The lungs are clear and expanded. There is no demonstrated pleural abnormality. Normal size heart. Normal mediastinum and maria luisa. Normal visualized pulmonary arteries. Normal visualized aortic arch and descending thoracic aorta. Normal visualized thoracic spine. Normal visualized ribs, clavicles, and shoulders. There is no demonstrated abnormality of the visualized soft tissue structures of the upper abdomen. RAD/Chest 1 View (Portable) IMPRESSION: Normal x-ray examination of the chest. Electronically Signed: Crow Cui, at 12:39 EDT , Service support ,
[2019-10-26 12:22] LABS: AST(SGOT) 20 U/L (15-37); Alanine Aminotransfer ALT/SGPT 19 U/L (16-61); Albumin, Serum 5.3 g/dL (3.2-5.0); Alkaline Phosphatase 184 U/L (45-117); Anion Gap 14 (5-15); BUN 24 mg/dL (7-18); Bilirubin, Direct 0.32 mg/dL (0.00-0.30); Calcium,Total 11.2 mg/dL (8.5-10.1); Chloride 100 mmol/L (98-107); Creatinine, Serum 1.72 mg/dL (0.70-1.30); EST Glomerular Filtration Rate 49 mL/min (>60); Est Glom Filt Rate - Afr Amer 60 mL/min (>60); Estimated Creatinine Clearance 55.89 ml/min; Globulin 4.5 g/dL (2.2-4.2); Glucose 121 mg/dL (74-106); Lipase 20 U/L (73-393); Potassium 3.1 mmol/L (3.5-5.1); Protein, Total 9.8 g/dL (6.4-8.2); Sodium Level 139 mmol/L (136-145)
--- NOTE | 2019-10-26 12:36 | CT_ITS ---
STUDY: CT ABDOMEN AND PELVIS WITH CONTRAST REASON FOR EXAM: Male, 29 years old. DEHYDRATED, N/V, UNCONTROLLED BLOOD SUGAR, ON INSULIN, HTN, HX-WV RADIATION DOSAGE (If Supplied By Facility): CTDIvol = ( 7.10 ) mGy, DLP = ( 384.63 ) mGycm TECHNIQUE: Transaxial images were obtained from the dome of the diaphragm to the symphysis pubis without oral contrast. IV 75mL [id number]-300 was administered. Sagittal and coronal images were reconstructed. Individualized dose optimization techniques were used for this CT. COMPARISON: None. FINDINGS: The visualized lung bases are unremarkable. The visualized portions of the heart are within normal limits. Normal liver. Normal gallbladder and extrahepatic biliary system. Borderline splenomegaly. Normal pancreas. Normal bilateral adrenal glands. Normal right kidney. Normal left kidney. There is a small hiatal hernia. Normal small intestine. Normal colon. The appendix is visualized and appears normal. Normal abdominal aorta. Normal inferior vena cava. There is borderline retroperitoneal lymphadenopathy with enlarged nodes no greater than 10mm in the short axis diameter. Normal urinary bladder. There is a small umbilical hernia containing fat. Small benign-appearing bilateral inguinal lymph nodes. Normal osseous structures. CT/Abdomen/Pelvis W IV Cont ONLY IMPRESSION: Borderline splenomegaly. Electronically Signed: Crow Cui, at 13:32 EDT , Service support ,
[2019-10-26 12:40] LABS: VBG BASE EXCESS 1 mmol/L (-1.0-3.5); VBG Bicarbonate 24 mmol/L (22-26); VBG Oxygen Content 25 mmol/L (23-33); VBG PO2 33 mmHg (25-40); VBG SO2 72 % (50-70); VBG pCO2 28.6 mmHg (41-51); VBG pH 7.53 (7.32-7.42)
[2019-10-26 12:46] LABS: Blood Gas Specimen Type VEN; O2 Delivery Device Room Air; SITE OTHER
[2019-10-26 12:47] LABS: Time Given 1211
[2019-10-26] MEDS: Potassium Chloride 10mEq/100mL 10 MEQ/100 ML IV.SOLN. 100 MEQ IV BOLUS ×4 (13:57→16:27)
--- NOTE | 2019-10-26 14:45 | PCM.HP.STD ---
Problem List (1) Lactic acidosis Status: Acute (2) Acute kidney injury Status: Acute (3) Hypokalemia Status: Acute (4) GERD (gastroesophageal reflux disease) Status: Chronic (5) Headache, migraine Status: Chronic (6) Diabetes type 1, controlled Status: Chronic Comment: Dx : age 9 Last exacerbation : DKA : 04/09 Hypoglycemic episode : never ER visit : 04/09 (7) Anxiety and depression Status: Chronic (8) PUD (peptic ulcer disease) Status: Chronic History of Present Illness Date of Admission: 10/26/19 Chief Complaint: Nausea and vomiting, general illness. The patient is a 29 year old M with past medical history as mentioned above presented to the emergency room because of not feeling well, nausea and vomiting. His illness started around 3 to 4 days ago, started with intractable nausea and vomiting, could not keep anything down to his stomach over the last 3 days, associated with abdominal pain and without aggravating or relieving factors. He complained of vague, upper abdominal pain, dull aching pain, not radiating, associated with nausea and vomiting and without aggravating or relieving factors. He complained of some cough and shortness of breath but he said his main symptoms are the nausea, vomiting and the abdominal pain. He denied fever or chills. He denied constipation or diarrhea. He denied urinary symptoms. He denied sick contacts or recent travel. In the emergency department, patient was initially tachycardic but heart rate came down to around 80s with IV fluids. He has been afebrile, blood pressure stable, pulse ox was 100% on room air. Routine blood work revealed leukocytosis, hemoglobin of 17.6 g/dL indicating hemoconcentration, potassium of 3.1, BUN of 24, creatinine 1.72 and blood glucose of 121. Lactic acid was 5. Calcium was 11.2 which is again likely due to dehydration and acute kidney injury. LFT revealed bilirubin of 2.4 which is chronic, alkaline phosphatase of 184, liver transaminases are normal. Lipase was normal. EKG revealed normal sinus rhythm without evidence of acute segment changes or cardiac arrhythmias. Chest x-ray showed no acute findings. CT scan abdomen and pelvis revealed normal liver, normal gallbladder and extrahepatic biliary system, normal pancreas, borderline splenomegaly, normal kidneys, no bowel obstruction, no other acute intra-abdominal pathology. He is being admitted for intractable nausea and vomiting of unclear etiology, acute kidney injury, lactic acidosis and leukocytosis without evidence of source of infection and is being admitted for evaluation and treatment. Past Medical History Past Medical History (Chronic Problems): Chronic Problems (Last Updated 10/26/19 @ 14:[address] Melody Stoddard MD) Erectile dysfunction (Chronic) Hypersomnolence (Chronic) GERD (gastroesophageal reflux disease) (Chronic) Vision problems (Chronic) Arthritis (Chronic) Headache, migraine (Chronic) Diabetes type 1, controlled (Chronic) Dx : age 9 Last exacerbation : DKA : 04/09 Hypoglycemic episode : never ER visit : 04/09 Anxiety and depression (Chronic) Diabetes mellitus type I (Chronic) PUD (peptic ulcer disease) (Chronic) Medical History: Medical History (Last Updated 10/26/19 @ 14:[address] Melody Stoddard MD) Vision problems (Chronic) H54.7 Arthritis (Chronic) M19.90 Headache, migraine (Chronic) G43.909 Diabetes type 1, controlled (Chronic) E10.9 Dx : age 9 Last exacerbation : DKA : 04/09 Hypoglycemic episode : never ER visit : 04/09 Anxiety and depression (Chronic) F41.8 Allergies No Known Allergies Allergy (Verified 10/26/19 11:07) Home Medications: Ambulatory Orders Medication Instructions Recorded Glucagon,Human Recombinant 1 mg IM ONCE 11/04/18 [Glucagon Emergency Kit] pen needle, diabetic 32 gauge x See Rx Instructions .ROUTE 06/03/19 5/ .MEDSUPPLY #150 ea aripiprazole 5 mg tablet See Rx Instructions .ROUTE 09/09/19 .COMPLEX #90 tab insulin aspart U-100 100 unit/mL 10 unit SC TID #15 ml 09/09/19 (3 mL) subcutaneous pen duloxetine 30 mg capsule,delayed 30 mg PO BID #180 cap 10/01/19 release Insulin Detemir [Levemir FlexTouch 24 unit SUBCUT QHS 10/26/19 U-100 Insuln] Surgical History: Surgical History (Last Reviewed 09/09/19 @ 17:31 by Cristine Arana) trigger finger surgery Surgical History: no surgical history Psychiatric History: Depression Smoking Status: Current every day smoker Tobacco Use: Cigarettes Alcohol: None Drugs: None - *Family History Maternal Family History: Family History (Last Reviewed 10/26/19 @ 14:[address] Melody Stoddard MD) Grandfather Myocardial infarction COPD (chronic obstructive pulmonary disease) Brother Depression Uncle Diabetes Father Diabetes Aunt Diabetes Paternal Family History: Family History (Last Reviewed 10/26/19 @ 14:[address] Melody Stoddard MD) Grandfather Myocardial infarction COPD (chronic obstructive pulmonary disease) Brother Depression Uncle Diabetes Father Diabetes Aunt Diabetes History Items: Diabetes - AUNT AND UNCLES HAS H/O DM 2 Review of Systems Constitutional: Reports: Anorexia, Malaise, Weakness. Denies: Chills, Fever Eyes: Denies: Blurred vision, Double vision, Drainage, Redness HEENT: Denies: Difficulty Hearing, Ear Pain, Eye Pain, Nasal Congestion, Sore Throat Cardiovascular: Denies: Chest Pain, Chest Pressure, Chest Tightness, Edema, Palpitations, Syncope Respiratory: Reports: Cough. Denies: Pleuritic Pain, Sputum production, Wheezing Gastrointestinal: Reports: Abdominal Pain, Nausea, Vomiting. Denies: Constipation, Diarrhea, Hematochezia, Melena Genitourinary: Denies: Dysuria, Frequency, Hematuria Musculoskeletal: Denies: Arm Pain, Back Pain, Foot Pain Skin: Denies: Dryness, Rash Neurological: Denies: Balance problems, Double vision, Change in Speech, Slurred speech, Confusion, Headaches, Incoordination Psychiatric: Reports: Anxiety, Depression Endocrine: Denies: Change in Body Habitus, Polydipsia, Polyuria VTE Information - Inpt Only VTE Present on Admission: Yes VTE Mechan Device Prophylaxis: None VTE Pharm Prophylaxis ordered?: Yes - Physical Exam Vitals/I&O's: Vital Signs Temp Pulse Resp BP Pulse Ox 97 F L 88 19 H 126/72 H 100 10/26/19 11:04 10/26/19 14:01 10/26/19 14:01 10/26/19 14:01 10/26/19 14:01 Oxygen Delivery Method Room Air Weight: 140 lb Body Mass Index (BMI) 22.6 Finger Stick Blood Glucose 555 Intake and Output for Last 24 Hours 10/24/19 10/25/19 10/26/19 23:59 23:59 23:59 Intake Total 1150 / 1150 Balance 1150 / 1150 General: Alert, Oriented x3, Cooperative, - - In distress because of vomiting and abdominal pain. HEENT: Atraumatic, PERRLA, EOMI, Normocephalic Oral: No Gingival or Mucosal Lesions/ Ulcerations, Dry Mucosa Neck: Supple, No JVD, Negative Carotid Bruits, Trachea Midline, Thyroid Normal Size and Texture Lungs: Clear to auscultation, Normal air movement, No rhonchi, No wheeze, No rales Cardiovascular: Regular rate, Regular Rhythm, Normal S1, Normal S2, PMI Normal Abdomen: Bowel Sounds Present, Soft, Non-Distended, No Hepato-splenomegaly, Tender - Epigastric tenderness, no guarding or rigidity. Extremities: No clubbing, No cyanosis, No edema Skin: No rashes, No breakdown Lymphatic: No Cervical, Supraclavicular, or Inguinal Adenopathy Neurological: Cranial nerves II-XII grossly intact, Motor Exam 5/5 strength throughout Psych/Mental Status: Normal Affect, Appropriate, Alert and oriented to time, place, person, mood and affect Laboratory Results 10/26/19 11:13: POC Glucose 123 H 10/26/19 11:54: WBC 18.4 H, RBC 5.46, Hgb 17.6 H, Hct 47.8, MCV 87.5, MCH 32.2 H, MCHC 36.8 H, RDW Std Deviation 37.1, RDW Coeff of Nathaniel 11.7, Plt Count 474 H, MPV 10.0, Immature Gran % (Auto) 0.400, Neut % (Auto) 81.2 H, Lymph % (Auto) 11.0 L, [place] % (Auto) 6.9, Eos % (Auto) 0.1, Baso % (Auto) 0.4, Absolute Neuts (auto) 14.9 H, Absolute Lymphs (auto) 2.02, Nucleated RBC % 0 10/26/19 11:54: Sodium 139, Potassium 3.1 L, Chloride 100, Carbon Dioxide 25.0, Anion Gap 14, BUN 24 H, Creatinine 1.72 H, Estim Creat Clear Calc 55.89, Est GFR (MDRD) Af Amer 60, Est GFR (MDRD) Non-Af 49 L, BUN/Creatinine Ratio 14.0, Glucose 121 H, Calcium 11.2 H, Total Bilirubin 2.40 H, Direct Bilirubin 0.32 H, AST 20, ALT 19, Alkaline Phosphatase 184 H, Total Protein 9.8 H, Albumin 5.3 H, Globulin 4.5 H, Lipase 20 L 10/26/19 11:54: Lactic Acid 5.0 H* 10/26/19 12:11: Acetone Level SMALL H 10/26/19 12:31: Specimen Type AMADO, Sample Site OTHER, VBG pH 7.53 H, VBG pO2 33, VBG O2 Sat (Calc) 72 H, VBG O2 Content 25, VBG Base Excess 1, POC Mix VBG pCO2 Pt Tmp 28.6 L, O2 Delivery Device Room Air, Blood Gas Notified Whom ED MD, Blood Gas Notified Time 1211 Clinical Impression(s) from Imaging Studies Chest X-Ray 10/26/19 12:20 IMPRESSION: Normal x-ray examination of the chest. Electronically Signed: rCow Cui, at 12:39 EDT , Service support , Abdomen/Pelvis CT 10/26/19 12:36 IMPRESSION: Borderline splenomegaly. Electronically Signed: Crow Cui at 13:32 EDT , Service support , Current Medications Potassium Chloride () 10 meq in 100 mls @ 100 mls/hr IV BOLUS Q1H JOSE F Stop: 10/26/19 17:29 Last Admin: 10/26/19 13:57 Dose: 100 mls/hr Documented by: Assessment/Plan All Active Problems (Last Updated 10/26/19 @ 14:[address] Melody Stoddard MD) Lactic acidosis (Acute) Acute kidney injury (Acute) Hypokalemia (Acute) This is a 29 years old male patient presented to the emergency room because of intractable nausea and vomiting with abdominal pain as well as some cough and minimal shortness of breath, found to have lactic acid of 5 with leukocytosis without evidence of acute infection, found to have acute kidney injury, hypokalemia and elevated LFT. #1 intractable nausea and vomiting/abdominal pain: Unclear etiology. Could be due to the peptic ulcer disease and GERD. CT scan abdomen and pelvis reviewed as above, no significant acute intra-abdominal pathology. Patient denied right upper quadrant abdominal pain, negative Erwin sign. Plan: Admit to PCU, clear liquids, IV fluids, IV antiemetics, IV Protonix twice daily, IV morphine PRN for pain, repeat CBC and CMP tomorrow morning, ultrasound liver and gallbladder. #2 lactic acidosis/leukocytosis: Without evidence of infection. Chest x-ray showed no acute infiltrate. Patient denied urinary symptoms. Patient received 30 cc/kg IV fluids bolus in the ED. Plan: Blood culture, urinalysis, urine culture, repeat lactic acid in 3 hours, maintenance IV fluids. At this time, no indication to start IV antibiotics. #3 acute kidney injury/hypokalemia: Secondary to intractable nausea and vomiting and dehydration. Baseline kidney function is normal. Plan: IV fluids with potassium replacement, check serum magnesium, input output chart, repeat CMP tomorrow morning. #4 elevated LFT: Mainly total bilirubin and alkaline phosphatase. Total bili is chronically elevated. Liver transaminases are normal. Patient denied any right upper quadrant abdominal pain. Plan: Ultrasound liver and gallbladder. #5 type 1 diabetes mellitus: No evidence of DKA. Start clear liquids, Accu-Cheks every 6 hours, insulin sliding scale, continue home doses of Levemir and insulin aspart 3 times daily #6 history of peptic ulcer disease/GERD: Start IV Protonix twice daily as above. #7 anxiety and depression: Continue aripiprazole and duloxetine. #8 DVT prophylaxis: Low risk patient, no prophylaxis indicated. This note was generated with [email or web address] dictation software. It may contain incorrect words, spelling, and punctuation that were not noted in checking the note before signing. Inpatient E&M: 42188 Init Hosp L3
--- NOTE | 2019-10-26 15:15 | US_ITS ---
STUDY: ABDOMINAL ULTRASOUND - RIGHT UPPER QUADRANT REASON FOR VISIT: Male, 29 years old ELEV BILIRUBIN TECHNIQUE: Ultrasound evaluation of the right upper quadrant was performed with real-time and static sierra-scale imaging. TECHNICAL QUALITY: Adequate. COMPARISON: November 28, 2018 FINDINGS: Liver: The liver measures 17.3 cm. There is normal echogenicity of the liver. The bile ducts are within normal limits. There is hepatic color flow. The direction of portal flow is hepatopetal. There is no demonstrated mass lesion. Gallbladder: Normal distended gallbladder. The gallbladder wall measures 2 mm. There is a negative sonographic Erwin''s sign. There is no pericholecystic fluid. There are no gallstones. Common Bile Duct (C.B.D.): The common bile duct measures 4 mm. Pancreas: Normal size of the head, body and tail of the pancreas. There is normal echogenicity of the pancreas. There is no demonstrated pancreatic mass or cyst. Right Kidney: Normal size of the right kidney. The right kidney measures 10.3 x 4.1 x 4.1 cm. Normal renal cortex. The right cortex measures 1.7 cm. There is no demonstrated renal mass or cyst. There is no right hydronephrosis. No significant change since prior exam US/Liver IMPRESSION: Normal right upper quadrant ultrasound examination. Electronically Signed: Nick Crowe MD at 16:40 EDT , Service support ,
[2019-10-26 16:02] LABS: Reflex Lactate? Y
[2019-10-26] MEDS: 0.9% Saline Lock 10 ML Syringe IV (16:10)
[2019-10-26 16:11] LABS: Bedside Glucose 170 mg/dL (70-110)
[2019-10-26 16:15] LABS: Magnesium 1.9 mg/dL (1.6-2.6)
[2019-10-26 16:28] LABS: Lactic Acid 2.3 mmol/L (0.4-1.9)
[2019-10-26] MEDS: Insulin Lispro 100 UNIT/ML INSULN.PEN 10 UNIT SC (17:21)
[2019-10-26 17:25] LABS: Bedside Glucose 333 mg/dL (70-110)
[2019-10-26 17:26] LABS: Bacteria 0 SEEN /hpf (None Seen); Mucous, Urine 0 SEEN /hpf (<or=2+); Red Blood Cells-Urine 0 SEEN /hpf (0-5); Squamous Epithelial Cells - UA 0 SEEN /hpf (0-5); White Blood Cells 0 SEEN /hpf (0-5)
[2019-10-26 18:05] LABS: Amphetamine Urine VISTA POSITIVE (<1000 ng/mL); Barbiturate Urine VISTA NEGATIVE (< 200 ng/mL); Benzodiazepine Urine VISTA NEGATIVE (< 200 ng/mL); Cocaine Urine VISTA NEGATIVE (< 300 ng/mL); Ecstacy Urine VISTA NEGATIVE (< 500 ng/mL); Methadone Urine VISTA NEGATIVE (< 300 ng/mL); PCP Urine VISTA NEGATIVE (< 25 ng/mL); THC Urine VISTA POSITIVE (< 50 ng/mL); Vista UDS pH Range 5
[2019-10-26 18:10] LABS: Color, Urine Yellow (Yellow); Glucose, Dipstick 1000 mg/dl (Normal); Leukocyte Esterase-Dipstick 25 /ul (Negative); Nitrite-Dipstick Negative (Negative); Occult Blood-Urine Negative /ul (Negative); Protein-Dipstick 30 mg/dl (Negative); Urine Bilirubin Dipstick Negative (Negative); Urine Clarity Clear (Clear); Urine Urobilinogen Normal (Normal)
[2019-10-26 18:25] LABS: Ketone-Dipstick 150 mg/dl (Negative)
[2019-10-26 18:36] LABS: Hyaline Cast 0-5 SEEN /lpf (0-5)
[2019-10-26 19:57] LABS: Reflex Lactate? Y
[2019-10-26] MEDS: proMETHazine 25 MG/ML Syringe IM (21:02)
[2019-10-26 21:15] LABS: Bedside Glucose 238 mg/dL (70-110)
[2019-10-27] VITALS (11 sets, daily range): BP systolic 135–157; BP diastolic 68–79; PULSE 84–128; RESP 9–20; TEMP 36.5–37.4; O2SAT 98–100
[2019-10-27] MEDS: Insulin Lispro 100 UNIT/ML INSULN.PEN SC ×5 (00:58→23:42)
--- NOTE | 2019-10-27 03:14 | NURSING ---
Pt mood labile this shift. During focused assessment, pt became agitated; especially when this RN had to auscultate lung/abdomen sounds. When pt gets worked up, his respirations increase, he takes deep breaths, starts heaving, with eventual emesis. Emesis seems to happen mostly when this RN is in the room. Pt at one point was shaking and thrashing around in bed. Pt states he doesn't like hospitals. This RN feels patient would benefit from a behavioral health evaluation.
[2019-10-27 05:14] LABS: Absolute Neutrophil Count 9.7 X10^3/uL (2.0-7.7); Basophil# 0.03 X10^3/uL; Basophil% 0.2 % (0-1); Hemoglobin 13.1 g/dL (13.0-16.5); Lymphocyte % 11.2 % (19-41); Mean Corp Hgb Conc 34.5 g/dL (32-36); Mean Corpuscular Hgb 31.7 pg (27.0-32.0); Mean Platelet Vol. 9.9 fl (6.2-12.0); Monocyte# 1.32 X10^3/uL; Monocyte% 10.6 % (0-10); NRBC Flagged by Analyzer 0 % (0-5); Neutrophil % 77.6 % (47-70); Platelet Count 302 K/mm3 (150-450); RBC Distribution Width CV 12.2 % (11.6-14.6); Red Blood Count 4.13 M/mm3 (4.6-6.2); White Blood Count 12.5 K/mm3 (4.4-11.0)
[2019-10-27 05:35] LABS: ALB/GLOB Ratio 1.1 RATIO (0.9-2.4); AST(SGOT) 22 U/L (15-37); Alanine Aminotransfer ALT/SGPT 15 U/L (16-61); Albumin, Serum 3.6 g/dL (3.2-5.0); Alkaline Phosphatase 127 U/L (45-117); Anion Gap 10 (5-15); BUN 23 mg/dL (7-18); BUN/Creat Ratio 18.3 RATIO (10-20); Chloride 111 mmol/L (98-107); Creatinine, Serum 1.26 mg/dL (0.70-1.30); EST Glomerular Filtration Rate 71 mL/min (>60); Est Glom Filt Rate - Afr Amer 86 mL/min (>60); Globulin 3.4 g/dL (2.2-4.2); Glucose 241 mg/dL (74-106); Potassium 4.9 mmol/L (3.5-5.1); Sodium Level 141 mmol/L (136-145)
[2019-10-27 05:45] LABS: Bedside Glucose 467 mg/dL (70-110)
--- NOTE | 2019-10-27 05:59 | NURSING ---
Pt offered pain and nausea medication at this time. Pt denies wanting pain medication at this time. Pt c/o CP previously, states it is now gone.
[2019-10-27] MEDS: Ondansetron 4 MG/2 ML Vial IV ×2 (06:08→17:49)
[2019-10-27 06:36] LABS: Bedside Glucose 254 mg/dL (70-110)
[2019-10-27] MEDS: 0.9% Saline Lock 10 ML Syringe IV (09:28)
[2019-10-27] MEDS: proMETHazine 25 MG/ML Syringe IM (09:28)
--- NOTE | 2019-10-27 10:48 | CASEMGMT ---
SAUNDRA CARMICHAEL assessment: Phone interview with patient for initial transition planning/care coordination assessment. RN AMOL introduced self and role at [facility], pt voices understanding and consents to assessment at this time. Pt is A/Ox4 at this time and answers questions appropriately at this time. Pt states that he is just trying to sleep but states that 'everyone keeps bothering me.' This RN AMOL offered to call back at a different time and pt said 'No, just go ahead' but then pt was very short with answers. Care providers, pharmacy, and demographics verified at this time. Presentation: DM issues, states blood sugars have been up and down, dehydrated, N/V Admitting dx: Lactic acidosis, [place], intractable N/V PCP: Gianna Specialists: montse Helton Preferred [facility]acy: [facility] Insurance: [facility] Prescription Benefit: [facility] Living Will/HPOA: Pt states does not have LW/HPOA and declines AD info at this time. LNOK: Aminata Marquez, mother; Fox Jimmy, ., father Living Arrangements: Pt states lives with his mother in a home and states no concerns at home at this time. Pt states is independent with ADL's. Transportation: Pt states drives self and states no transportation concerns at this time. DME/HHC: Pt states no current DME or need for any at this time. Pt states no hx of HHC or SNF in the past. Pt states no concerns with going home at time of discharge. Pt states is currently unemployed d/t 'thomas virus.' Pt states smokes a pack of cigarettes daily and does not drink ETOH. Pt states no further concerns/needs at this time. CM to follow for any further discharge planning/needs. Advised pt to ask for CM if any further questions/concerns/needs arise, voices understanding. Pt Goal: Home Plan[place] SAUNDRA CARMICHAEL
[2019-10-27 11:25] LABS: Bedside Glucose 276 mg/dL (70-110)
--- NOTE | 2019-10-27 11:40 | PCM.PN.HOSP ---
Patient Problems: Active and Suspected Problems (Last Updated 10/26/19 @ 14:[address] Melody Stoddard MD) SIRS (systemic inflammatory response syndrome) (Acute) Hypokalemia (Acute) Subjective: Patient seen and examined. He was admitted with a complaint of incessant vomiting. Patient admits to smoking marijuana though he states he uses only occasionally. He is also diabetic and has not been very compliant with his medication. He has been managed for MIREILLE and lactic acidosis as well as incessant vomiting. Vitals/I&O's: Vital Signs Temp Pulse Resp BP Pulse Ox 97.7 F L 102 H 18 135/77 H 100 10/27/19 09:31 10/27/19 09:31 10/27/19 09:31 10/27/19 09:31 10/27/19 09:31 Oxygen Delivery Method Room Air Weight: 140 lb Body Mass Index (BMI) 22.6 Finger Stick Blood Glucose 555 Intake and Output for Last 24 Hours 10/25/19 10/26/19 10/27/19 23:59 23:59 23:59 Intake Total 1843.33 / 1843.33 1515 / 1515 Output Total 0 / 0 550 / 550 Balance 1843.33 / 1843.33 965 / 965 General: Alert, Oriented x3, Cooperative, - - mild distress, as he was retching at time of review HEENT: Atraumatic, PERRLA, EOMI, Normocephalic Oral: Dry Mucosa Neck: Supple, No JVD, Negative Carotid Bruits, Negative Hepatojugular Reflux, No Nodes Lungs: Clear to auscultation, Normal air movement, No rhonchi, No wheeze, No rales Cardiovascular: Regular rate, Regular Rhythm, Normal S1, Normal S2, No murmurs Abdomen: Bowel Sounds Present, Soft, - - mild generalised tenderness, no guarding or rebound tenderness Extremities: No clubbing, No cyanosis, No edema, Capillary Refill Less than 3 Seconds Skin: No rashes, No breakdown Musculoskeletal: No Tenderness to Palpation of Joints or Extremities Lymphatic: No Cervical, Supraclavicular, or Inguinal Adenopathy Neurological: Cranial nerves II-XII grossly intact, Neuro grossly intact, Motor Exam 5/5 strength throughout Psych/Mental Status: Normal Affect, Appropriate, Alert and oriented to time, place, person, mood and affect Laboratory Results 10/26/19 11:54: WBC 18.4 H, RBC 5.46, Hgb 17.6 H, Hct 47.8, MCV 87.5, MCH 32.2 H, MCHC 36.8 H, RDW Std Deviation 37.1, RDW Coeff of Nathaniel 11.7, Plt Count 474 H, MPV 10.0, Immature Gran % (Auto) 0.400, Neut % (Auto) 81.2 H, Lymph % (Auto) 11.0 L, [place] % (Auto) 6.9, Eos % (Auto) 0.1, Baso % (Auto) 0.4, Absolute Neuts (auto) 14.9 H, Absolute Lymphs (auto) 2.02, Nucleated RBC % 0 10/26/19 11:54: Sodium 139, Potassium 3.1 L, Chloride 100, Carbon Dioxide 25.0, Anion Gap 14, BUN 24 H, Creatinine 1.72 H, Estim Creat Clear Calc 55.89, Est GFR (MDRD) Af Amer 60, Est GFR (MDRD) Non-Af 49 L, BUN/Creatinine Ratio 14.0, Glucose 121 H, Calcium 11.2 H, Total Bilirubin 2.40 H, Direct Bilirubin 0.32 H, AST 20, ALT 19, Alkaline Phosphatase 184 H, Total Protein 9.8 H, Albumin 5.3 H, Globulin 4.5 H, Lipase 20 L 10/26/19 11:54: Lactic Acid 5.0 H* 10/26/19 11:54: Magnesium 1.9 10/26/19 12:11: Acetone Level SMALL H 10/26/19 12:31: Specimen Type AMADO, Sample Site OTHER, VBG pH 7.53 H, VBG pO2 33, VBG O2 Sat (Calc) 72 H, VBG O2 Content 25, VBG Base Excess 1, POC Mix VBG pCO2 Pt Tmp 28.6 L, O2 Delivery Device Room Air, Blood Gas Notified Whom ED , Blood Gas Notified Time 1211 10/26/19 13:49: Lactic Acid 2.3 H* 10/26/19 15:17: POC Glucose 170 H 10/26/19 17:18: POC Glucose 333 H 10/26/19 17:20: Urine Color Yellow, Urine Clarity Clear, Urine pH 5.0, Ur Specific [place] 1.010, Urine Protein 30 H, Urine Glucose (UA) 1000 H, Urine Ketones 150 H, Urine Occult Blood Negative, Urine Nitrite Negative, Urine Bilirubin Negative, Urine Urobilinogen Normal, Ur Leukocyte Esterase 25 H, Urine RBC 0 SEEN, Urine WBC 0 SEEN, Ur Squamous Epith Cells 0 SEEN, Urine Bacteria 0 SEEN, Hyaline Casts 0-5 SEEN, Urine Mucus 0 SEEN 10/26/19 17:20: Urine Opiates Screen NEGATIVE, Urine Methadone Screen NEGATIVE, Ur Barbiturates Screen NEGATIVE, Ur Phencyclidine Scrn NEGATIVE, Ur Amphetamines Screen POSITIVE H, U Methamphetamin-MDMA NEGATIVE, U Benzodiazepines Scrn NEGATIVE, Urine Cocaine Screen NEGATIVE, U Cannabinoids Screen POSITIVE H, Ur Drug Screen Comment 10/26/19 21:00: POC Glucose 238 H 10/27/19 00:41: POC Glucose 467 H* 10/27/19 04:48: WBC 12.5 H, RBC 4.13 L, Hgb 13.1, Hct 38.0 L, MCV 92.0 D, MCH 31.7, MCHC 34.5 D, RDW Std Deviation 41.0, RDW Coeff of Nathaniel 12.2, Plt Count 302, MPV 9.9, Immature Gran % (Auto) 0.400, Neut % (Auto) 77.6 H, Lymph % (Auto) 11.2 L, [place] % (Auto) 10.6 H, Eos % (Auto) 0.0, Baso % (Auto) 0.2, Absolute Neuts (auto) 9.7 H, Absolute Lymphs (auto) 1.40, Nucleated RBC % 0 10/27/19 04:48: Sodium 141, Potassium 4.9, Chloride 111 H, Carbon Dioxide 20.0 L, Anion Gap 10, BUN 23 H, Creatinine 1.26, Estim Creat Clear Calc 76.30, Est GFR (MDRD) Af Amer 86, Est GFR (MDRD) Non-Af 71, BUN/Creatinine Ratio 18.3, Glucose 241 H, Calcium 9.0, Total Bilirubin 1.90 H, AST 22, ALT 15 L, Alkaline Phosphatase 127 H, Total Protein 7.0, Albumin 3.6, Globulin 3.4, Albumin/Globulin Ratio 1.1 10/27/19 05:53: POC Glucose 254 H 10/27/19 11:19: POC Glucose 276 H Diagnostic Data Chest X-Ray 10/26/19 12:20 IMPRESSION: Normal x-ray examination of the chest. Electronically Signed: Crow Cui, at 12:39 EDT , Service support , Abdomen/Pelvis CT 10/26/19 12:36 IMPRESSION: Borderline splenomegaly. Electronically Signed: Crow Cui, at 13:32 EDT , Service support , Liver Ultrasound 10/26/19 15:15 IMPRESSION: Normal right upper quadrant ultrasound examination. Electronically Signed: Nick Crowe MD at 16:40 EDT , Service support , Current Medications Al Hydroxide/Mg Hydroxide (Mylanta Ii) 30 ml PO Q6H PRN PRN PRN Reason: Indigestion, heartburn Aripiprazole (Abilify) 5 mg PO QHS [facility] Last Admin: 10/26/19 21:06 Dose: Not Given Documented by: Dextrose (D50w Syringe) 0 gm IV X1 PRN; Protocol PRN Reason: Hypoglycemia Duloxetine HCl (Cymbalta) 30 mg PO BID [facility] Last Admin: 10/27/19 10:22 Dose: Not Given Documented by: Glucagon () 1 mg IM .X1 PRN PRN Reason: Hypoglycemia Potassium Chloride/Sodium Chloride () 1,000 mls @ 100 mls/hr IV .Q10H [facility] Last Admin: 10/27/19 03:10 Dose: 100 mls/hr Documented by: Pantoprazole Sodium 40 mg/ (Sodium Chloride) 110 mls @ 330 mls/hr IV Q12 [facility] Last Infusion: 10/27/19 10:22 Dose: Infused Documented by: Insulin Glargine (Lantus (Bkc)) 24 units SC QHS [facility] Last Admin: 10/26/19 21:01 Dose: Not Given Documented by: Insulin Human Lispro (Humalog Kwikpen (Bk)) 0 unit SC Q6 JOSE [facility]; Protocol Last Admin: 10/27/19 05:55 Dose: 6 u Documented by: Insulin Human Lispro (Humalog Kwikpen ([facility])) 10 unit SC 0800,1200,1700 [facility] Last Admin: 10/27/19 09:21 Dose: Not Given Documented by: Lorazepam (Ativan) 1 mg IV Q6H PRN PRN PRN Reason: ANXIETY Morphine Sulfate () 2 mg IV Q4H PRN PRN PRN Reason: Pain Score 6-10/10 Ondansetron HCl (Zofran) 4 mg IV Q8H PRN PRN PRN Reason: NAUSEA/VOMITING Last Admin: 10/27/19 06:08 Dose: 4 mg Documented by: Promethazine HCl (Phenergan) 25 mg IM Q6H PRN PRN PRN Reason: Breakthrough Nausea/Vomiting Last Admin: 10/27/19 09:28 Dose: 25 mg Documented by: Sodium Chloride () 10 - 40 ml IV UD PRN PRN Reason: SALINE FLUSH Last Admin: 10/27/19 09:28 Dose: 30 ml Documented by: STROKE Vital Signs/Narrative: Vital Signs Temp Pulse Resp BP Pulse Ox 10/27/19 09:31 97.7 F L 102 H 18 135/77 H 100 Medical Necessity - Tobacco Use Smoking Status: Current every day smoker Tobacco Use: Cigarettes Assessment/Plan All Active Problems (Last Updated 10/26/19 @ 14:[address] Melody Stoddard MD) SIRS (systemic inflammatory response syndrome) (Acute) Lactic acidosis (Acute) Acute kidney injury (Acute) Hypokalemia (Acute) 1. Intractable vomiting Patient uses marijuana and so it could be due to cyclical vomiting from use of marijuana. However patient is also diabetic and his A1c was 10.7 in August 2019. He does not seem to be compliant with his medication and so I am concerned that gastroparesis may also be a cause of his frequent incessant vomiting. Patient on IV Zofran. Been hydrated with IV fluids. Liver ultrasound done was essentially normal. CT of the abdomen and pelvis showed borderline splenomegaly. Will consider starting metoclopramide. 2. MIREILLE Likely prerenal, due to dehydration from vomiting. Creatinine was 1.72 on admission and is now down to 1.26. Continue hydration with IV fluids. 3. Hypokalemia: Potassium was 3.1 on admission and is now 4.9 with replacement. Will monitor. 4. Type 1 diabetes mellitus A1c from August 2019 was 10.7. On Lantus 24 units nightly and insulin sliding scale. Accu-Cheks AC at bedtime. 5. Elevated LFTs: Trending down. Likely due to dehydration. Liver ultrasound was normal. 6. Lactic acidosis: Lactic acid was 5 on admission and is likely due to dehydration from incessant vomiting. Trended down significantly to 2.3 patient has been continuously hydrated. 7. History of peptic ulcer disease: On IV Protonix 40 mg twice daily. 8. Anxiety and depression: On duloxetine and aripiprazole DVT prophylaxis: Low risk. Encourage ambulation. Inpatient E&M: [id number] [facility] L3
[2019-10-27] MEDS: Metoclopramide 10 MG/2 ML Vial 2.5 MG IV ×2 (13:28→20:58)
[2019-10-27 16:55] LABS: Bedside Glucose 299 mg/dL (70-110)
[2019-10-27] MEDS: LORazepam 2 MG/ML Syringe 1 MG IV (21:04)
[2019-10-27 23:56] LABS: Bedside Glucose 290 mg/dL (70-110)
[2019-10-28] VITALS (10 sets, daily range): BP systolic 123–138; BP diastolic 57–92; PULSE 69–103; RESP 12–17; TEMP 36.8–37.6; O2SAT 94–100
[2019-10-28] MEDS: Ondansetron 4 MG/2 ML Vial IV (04:21)
[2019-10-28 06:54] LABS: Absolute Lymphocyte Count 1.24 X10^3/uL (0.83-4.51); Absolute Neutrophil Count 9.7 X10^3/uL (2.0-7.7); Basophil# 0.06 X10^3/uL; Basophil% 0.5 % (0-1); Eosinophil# 0.03 X10^3/uL; Eosinophils% 0.3 % (0-5); Hematocrit 39.3 % (40-54); Hemoglobin 13.3 g/dL (13.0-16.5); Lymphocyte # 1.24 X10^3/ul (4.0); Lymphocyte % 10.5 % (19-41); Mean Corp Hgb Conc 33.8 g/dL (32-36); Mean Corpuscular Hgb 31.7 pg (27.0-32.0); Mean Corpuscular Volume 93.6 fL (80-94); Mean Platelet Vol. 9.7 fl (6.2-12.0); Monocyte# 0.72 X10^3/uL; Monocyte% 6.1 % (0-10); NRBC Flagged by Analyzer 0 % (0-5); Neutrophil # 9.74 X10^3/uL (2.7-7.7); Neutrophil % 82.2 % (47-70); Platelet Count 226 K/mm3 (150-450); RBC Distribution Width CV 12.2 % (11.6-14.6); RBC Distribution Width SD 42.2 fl (35.1-43.9); White Blood Count 11.8 K/mm3 (4.4-11.0)
[2019-10-28] MEDS: Metoclopramide 10 MG/2 ML Vial 2.5 MG IV ×3 (07:04→21:21)
[2019-10-28 07:21] LABS: Anion Gap 12 (5-15); BUN 12 mg/dL (7-18); BUN/Creat Ratio 10.6 RATIO (10-20); Calcium,Total 8.5 mg/dL (8.5-10.1); Chloride 106 mmol/L (98-107); Creatinine, Serum 1.13 mg/dL (0.70-1.30); EST Glomerular Filtration Rate 80 mL/min (>60); Est Glom Filt Rate - Afr Amer 97 mL/min (>60); Estimated Creatinine Clearance 85.08 ml/min; Glucose 343 mg/dL (74-106); Potassium 4.7 mmol/L (3.5-5.1); Sodium Level 138 mmol/L (136-145)
[2019-10-28] MEDS: Insulin Lispro 100 UNIT/ML INSULN.PEN SC ×3 (09:36→23:32)
[2019-10-28] MEDS: Insulin Lispro 100 UNIT/ML INSULN.PEN 10 UNIT SC ×2 (09:38→12:17)
[2019-10-28] MEDS: DULoxetine Hcl 30 MG Capsule PO ×2 (09:42→21:21)
[2019-10-28 10:00] LABS: Bedside Glucose 415 mg/dL (70-110)
--- NOTE | 2019-10-28 12:16 | PN_ITS ---
Patient Problems: Active and Suspected Problems (Last Updated 10/26/19 @ 14:[address] Melody Stoddard MD) SIRS (systemic inflammatory response syndrome) (Acute) Hypokalemia (Acute) Reason for Visit: follow up for incessant vomiting Vitals/I&O's: Vital Signs Temp Pulse Resp BP Pulse Ox 99.7 F H 82 14 135/76 H 100 10/28/19 09:30 10/28/19 11:15 10/28/19 09:30 10/28/19 09:30 10/28/19 09:30 Oxygen Delivery Method Room Air Weight: 140 lb Body Mass Index (BMI) 22.6 Finger Stick Blood Glucose 555 Intake and Output for Last 24 Hours 10/26/19 10/27/19 10/28/19 23:59 23:59 23:59 Intake Total 1843.33 / 1843.33 5165.00 / 5165.00 1093.33 / 1093.33 Output Total 0 / 0 550 / 550 Balance 1843.33 / 1843.33 4615.00 / 4615.00 1093.33 / 1093.33 Microbiology Past 72 Hours 10/26/19 17:20 Urine, Clean Catch Urine Culture - Preliminary Mixed Gram Positive Organisms 10/26/19 12:11 Blood Culture (Wb) - Anticubital Left Blood Culture - Preliminary No growth in 48 hours. 10/26/19 11:54 Blood Culture (Wb) - Anticubital Right Blood Culture - Preliminary No growth in 48 hours. Laboratory Results 10/27/19 16:50: POC Glucose 299 H 10/27/19 23:41: POC Glucose 290 H 10/28/19 06:30: WBC 11.8 H, RBC 4.20 L, Hgb 13.3, Hct 39.3 L, MCV 93.6, MCH 31.7, MCHC 33.8, RDW Std Deviation 42.2, RDW Coeff of Nathaniel 12.2, Plt Count 226, MPV 9.7, Immature Gran % (Auto) 0.400, Neut % (Auto) 82.2 H, Lymph % (Auto) 10.5 L, [place] % (Auto) 6.1, Eos % (Auto) 0.3, Baso % (Auto) 0.5, Absolute Neuts (auto) 9.7 H, Absolute Lymphs (auto) 1.24, Nucleated RBC % 0 10/28/19 06:30: Sodium 138, Potassium 4.7, Chloride 106, Carbon Dioxide 20.0 L, Anion Gap 12, BUN 12, Creatinine 1.13, Estim Creat Clear Calc 85.08, Est GFR (MDRD) Af Amer 97, Est GFR (MDRD) Non-Af 80, BUN/Creatinine Ratio 10.6, Glucose 343 H, Calcium 8.5 10/28/19 09:35: POC Glucose 415 H Current Medications Al Hydroxide/Mg Hydroxide (Mylanta Ii) 30 ml PO Q6H PRN PRN PRN Reason: Indigestion, heartburn Aripiprazole (Abilify) 5 mg PO QHS [facility] Last Admin: 10/27/19 22:41 Dose: Not Given Documented by: Dextrose (D50w Syringe) 0 gm IV X1 PRN; Protocol PRN Reason: Hypoglycemia Duloxetine HCl (Cymbalta) 30 mg PO BID [facility] Last Admin: 10/28/19 09:42 Dose: 30 mg Documented by: Glucagon () 1 mg IM .X1 PRN PRN Reason: Hypoglycemia Potassium Chloride/Sodium Chloride () 1,000 mls @ 100 mls/hr IV .Q10H [facility] Last Admin: 10/28/19 09:32 Dose: 100 mls/hr Documented by: Pantoprazole Sodium 40 mg/ (Sodium Chloride) 110 mls @ 330 mls/hr IV Q12 [facility] Last Infusion: 10/28/19 10:04 Dose: Infused Documented by: Insulin Glargine (Lantus (Bkc)) 24 units SC QHS [facility] Last Admin: 10/28/19 09:50 Dose: 24 units Documented by: Insulin Human Lispro (Humalog Kwikpen (Bkc)) 0 unit SC Q6 [facility]; Protocol Last Admin: 10/28/19 09:36 Dose: 16 u Documented by: Insulin Human Lispro (Humalog Kwikpen (Bkc)) 10 unit SC 0800,1200,1700 [facility] Last Admin: 10/28/19 09:38 Dose: 10 u Documented by: Lorazepam (Ativan) 1 mg IV Q6H PRN PRN PRN Reason: ANXIETY Last Admin: 10/27/19 21:04 Dose: 1 mg Documented by: Metoclopramide HCl (Reglan) 2.5 mg IV Q8 [facility] Last Admin: 10/28/19 07:04 Dose: 2.5 mg Documented by: Morphine Sulfate () 2 mg IV Q4H PRN PRN PRN Reason: Pain Score 6-10/10 Ondansetron HCl (Zofran) 4 mg IV Q8H PRN PRN PRN Reason: NAUSEA/VOMITING Last Admin: 10/28/19 04:21 Dose: 4 mg Documented by: Promethazine HCl (Phenergan) 25 mg IM Q6H PRN PRN PRN Reason: Breakthrough Nausea/Vomiting Last Admin: 10/27/19 09:28 Dose: 25 mg Documented by: Sodium Chloride () 10 - 40 ml IV UD PRN PRN Reason: SALINE FLUSH Last Admin: 10/27/19 09:28 Dose: 30 ml Documented by: STROKE Vital Signs/Narrative: Vital Signs Temp Pulse Resp BP Pulse Ox 10/28/19 11:15 82 10/28/19 09:30 99.7 F H 88 14 135/76 H 100 Medical Necessity - Tobacco Use Smoking Status: Current every day smoker Tobacco Use: Cigarettes Assessment/Plan All Active Problems (Last Updated 10/26/19 @ 14:[address] Melody Stoddard MD) SIRS (systemic inflammatory response syndrome) (Acute) Lactic acidosis (Acute) Acute kidney injury (Acute) Hypokalemia (Acute)
--- NOTE | 2019-10-28 12:41 | PN_ITS ---
Patient Problems: Active and Suspected Problems (Last Updated 10/26/19 @ 14:[address] Melody Stoddard MD) SIRS (systemic inflammatory response syndrome) (Acute) Hypokalemia (Acute) Subjective: Patient seen and examined. Vomiting has improved, but he still feels weak. He denies fever, chills, nausea or diarrhea. Review of systems is otherwise negative. Labs and vitals reviewed. WBC is 11. Patient has had some mild fever overnight, with temperature today being 99.7F. Review of systems otherwise negative. Vitals/I&O's: Vital Signs Temp Pulse Resp BP Pulse Ox 99.7 F H 82 14 135/76 H 100 10/28/19 09:30 10/28/19 11:15 10/28/19 09:30 10/28/19 09:30 10/28/19 09:30 Oxygen Delivery Method Room Air Weight: 140 lb Body Mass Index (BMI) 22.6 Finger Stick Blood Glucose 555 Intake and Output for Last 24 Hours 10/26/19 10/27/19 10/28/19 23:59 23:59 23:59 Intake Total 1843.33 / 1843.33 5165.00 / 5165.00 1093.33 / 1093.33 Output Total 0 / 0 550 / 550 Balance 1843.33 / 1843.33 4615.00 / 4615.00 1093.33 / 1093.33 General: Alert, Oriented x3, Cooperative, HEENT: Atraumatic, PERRLA, EOMI, Normocephalic Oral: Dry Mucosa Neck: Supple, No JVD, Negative Carotid Bruits, Negative Hepatojugular Reflux, No Nodes Lungs: Clear to auscultation, Normal air movement, No rhonchi, No wheeze, No rales Cardiovascular: Regular rate, Regular Rhythm, Normal S1, Normal S2, No murmurs Abdomen: Bowel Sounds Present, Soft, - - mild generalised tenderness, no guarding or rebound tenderness Extremities: No clubbing, No cyanosis, No edema, Capillary Refill Less than 3 Seconds Skin: No rashes, No breakdown Musculoskeletal: No Tenderness to Palpation of Joints or Extremities Lymphatic: No Cervical, Supraclavicular, or Inguinal Adenopathy Neurological: Cranial nerves II-XII grossly intact, Neuro grossly intact, Motor Exam 5/5 strength throughout Psych/Mental Status: Normal Affect, Appropriate, Alert and oriented to time, place, person, mood and affect Microbiology Past 72 Hours 10/26/19 17:20 Urine, Clean Catch Urine Culture - Preliminary Mixed Gram Positive Organisms 10/26/19 12:11 Blood Culture (Wb) - Anticubital Left Blood Culture - Preliminary No growth in 48 hours. 10/26/19 11:54 Blood Culture (Wb) - Anticubital Right Blood Culture - Preliminary No growth in 48 hours. Laboratory Results 10/27/19 16:50: POC Glucose 299 H 10/27/19 23:41: POC Glucose 290 H 10/28/19 06:30: WBC 11.8 H, RBC 4.20 L, Hgb 13.3, Hct 39.3 L, MCV 93.6, MCH 31.7, MCHC 33.8, RDW Std Deviation 42.2, RDW Coeff of Nathaniel 12.2, Plt Count 226, MPV 9.7, Immature Gran % (Auto) 0.400, Neut % (Auto) 82.2 H, Lymph % (Auto) 10.5 L, [place] % (Auto) 6.1, Eos % (Auto) 0.3, Baso % (Auto) 0.5, Absolute Neuts (auto) 9.7 H, Absolute Lymphs (auto) 1.24, Nucleated RBC % 0 10/28/19 06:30: Sodium 138, Potassium 4.7, Chloride 106, Carbon Dioxide 20.0 L, Anion Gap 12, BUN 12, Creatinine 1.13, Estim Creat Clear Calc 85.08, Est GFR (MDRD) Af Amer 97, Est GFR (MDRD) Non-Af 80, BUN/Creatinine Ratio 10.6, Glucose 343 H, Calcium 8.5 10/28/19 09:35: POC Glucose 415 H Current Medications Al Hydroxide/Mg Hydroxide (Mylanta Ii) 30 ml PO Q6H PRN PRN PRN Reason: Indigestion, heartburn Aripiprazole (Abilify) 5 mg PO QHS [facility] Last Admin: 10/27/19 22:41 Dose: Not Given Documented by: Dextrose (D50w Syringe) 0 gm IV X1 PRN; Protocol PRN Reason: Hypoglycemia Duloxetine HCl (Cymbalta) 30 mg PO BID [facility] Last Admin: 05/07/20 09:42 Dose: 30 mg Documented by: Glucagon () 1 mg IM .X1 PRN PRN Reason: Hypoglycemia Potassium Chloride/Sodium Chloride () 1,000 mls @ 100 mls/hr IV .Q10H [facility] Last Admin: 10/28/19 09:32 Dose: 100 mls/hr Documented by: Pantoprazole Sodium 40 mg/ (Sodium Chloride) 110 mls @ 330 mls/hr IV Q12 [facility] Last Infusion: 10/28/19 10:04 Dose: Infused Documented by: Insulin Glargine (Lantus (Bkc)) 24 units SC QHS [facility] Last Admin: 10/28/19 09:50 Dose: 24 units Documented by: Insulin Human Lispro (Humalog Kwikpen (Bk)) 0 unit SC Q6 [facility]; Protocol Last Admin: 10/28/19 12:17 Dose: 9 u Documented by: Insulin Human Lispro (Humalog Kwikpen (Bkc)) 10 unit SC 0800,1200,1700 [facility] Last Admin: 10/28/19 12:17 Dose: 10 u Documented by: Lorazepam (Ativan) 1 mg IV Q6H PRN PRN PRN Reason: ANXIETY Last Admin: 10/27/19 21:04 Dose: 1 mg Documented by: Metoclopramide HCl (Reglan) 2.5 mg IV Q8 [facility] Last Admin: 10/28/19 07:04 Dose: 2.5 mg Documented by: Morphine Sulfate () 2 mg IV Q4H PRN PRN PRN Reason: Pain Score 6-10/10 Ondansetron HCl (Zofran) 4 mg IV Q8H PRN PRN PRN Reason: NAUSEA/VOMITING Last Admin: 10/28/19 04:21 Dose: 4 mg Documented by: Promethazine HCl (Phenergan) 25 mg IM Q6H PRN PRN PRN Reason: Breakthrough Nausea/Vomiting Last Admin: 10/27/19 09:28 Dose: 25 mg Documented by: Sodium Chloride () 10 - 40 ml IV UD PRN PRN Reason: SALINE FLUSH Last Admin: 10/27/19 09:28 Dose: 30 ml Documented by: STROKE Vital Signs/Narrative: Vital Signs Temp Pulse Resp BP Pulse Ox 10/28/19 11:15 82 10/28/19 09:30 99.7 F H 88 14 135/76 H 100 Medical Necessity - Tobacco Use Smoking Status: Current every day smoker Tobacco Use: Cigarettes Assessment/Plan All Active Problems (Last Updated 10/26/19 @ 14:[address] Melody Stoddard MD) SIRS (systemic inflammatory response syndrome) (Acute) Lactic acidosis (Acute) Acute kidney injury (Acute) Hypokalemia (Acute) 1. Intractable vomiting * vomiting is better, but he still feels weak. * on IV zofran * he was started on IV metoclopromide yesterday. * liver USG was normal * has been having low grade fever; cause is unclear. * wbc has been trending down; will monitor for now. * 2. MIREILLE * resolved. * 3. Hypokalemia: resolved. 4. Type 1 diabetes mellitus * A1c from August 2019 was 10.7. * On Lantus 24 units nightly and insulin sliding scale. Accu-Cheks AC at bedtime. * 5. Elevated LFTs: Trending down. Likely due to dehydration. Liver ultrasound was normal. 6. Lactic acidosis: resolved. * 7. History of peptic ulcer disease: On IV Protonix 40 mg twice daily. 8. Anxiety and depression: On duloxetine and aripiprazole DVT prophylaxis: Low risk. Encourage ambulation. Inpatient E&M: 39682 [facility] L2
[2019-10-28 13:27] LABS: AST(SGOT) 25 U/L (15-37); Alanine Aminotransfer ALT/SGPT 14 U/L (16-61); Albumin, Serum 3.6 g/dL (3.2-5.0); Alkaline Phosphatase 121 U/L (45-117); Bilirubin, Direct 0.37 mg/dL (0.00-0.30); Globulin 3.3 g/dL (2.2-4.2); Protein, Total 6.9 g/dL (6.4-8.2)
[2019-10-28 13:31] LABS: Bedside Glucose 279 mg/dL (70-110)
[2019-10-28 16:56] LABS: Bedside Glucose 127 mg/dL (70-110)
[2019-10-28] MEDS: 0.9% Saline Lock 10 ML Syringe IV (21:20)
[2019-10-28] MEDS: LORazepam 2 MG/ML Syringe 1 MG IV (21:21)
[2019-10-28] MEDS: ARIPiprazole 5 MG Tablet PO (21:21)
[2019-10-28 23:35] LABS: Bedside Glucose 178 mg/dL (70-110)
[2019-10-29 03:00] VITALS: PULSE 76
[2019-10-29 05:29] VITALS: BP 133/85; PULSE 94; RESP 17; TEMP 36.9; O2SAT 98
[2019-10-29 05:36] LABS: Bedside Glucose 54 mg/dL (70-110)
[2019-10-29] MEDS: 0.9% Saline Lock 10 ML Syringe IV (05:37)
[2019-10-29] MEDS: Metoclopramide 10 MG/2 ML Vial 2.5 MG IV (05:37)
[2019-10-29 06:11] LABS: Bedside Glucose 65 mg/dL (70-110)
[2019-10-29 06:50] LABS: Absolute Lymphocyte Count 1.72 X10^3/uL (0.83-4.51); Absolute Neutrophil Count 4.4 X10^3/uL (2.0-7.7); Basophil# 0.04 X10^3/uL; Basophil% 0.6 % (0-1); Eosinophil# 0.15 X10^3/uL; Eosinophils% 2.2 % (0-5); Hemoglobin 13.3 g/dL (13.0-16.5); Lymphocyte # 1.72 X10^3/ul (4.0); Lymphocyte % 24.8 % (19-41); Mean Corp Hgb Conc 34.1 g/dL (32-36); Mean Corpuscular Volume 93.8 fL (80-94); Mean Platelet Vol. 9.6 fl (6.2-12.0); Monocyte% 8.7 % (0-10); NRBC Flagged by Analyzer 0 % (0-5); Neutrophil % 63.4 % (47-70); Platelet Count 190 K/mm3 (150-450); RBC Distribution Width CV 11.8 % (11.6-14.6); RBC Distribution Width SD 39.8 fl (35.1-43.9); Red Blood Count 4.16 M/mm3 (4.6-6.2); White Blood Count 6.9 K/mm3 (4.4-11.0)
[2019-10-29 06:55] LABS: Bedside Glucose 181 mg/dL (70-110)
[2019-10-29 07:20] VITALS: PULSE 82
[2019-10-29 07:26] LABS: ALB/GLOB Ratio 1.1 RATIO (0.9-2.4); AST(SGOT) 23 U/L (15-37); Alanine Aminotransfer ALT/SGPT 14 U/L (16-61); Albumin, Serum 3.3 g/dL (3.2-5.0); Alkaline Phosphatase 107 U/L (45-117); Anion Gap 7 (5-15); BUN 8 mg/dL (7-18); BUN/Creat Ratio 8.5 RATIO (10-20); Calcium,Total 8.4 mg/dL (8.5-10.1); Chloride 108 mmol/L (98-107); Creatinine, Serum 0.94 mg/dL (0.70-1.30); EST Glomerular Filtration Rate 99 mL/min (>60); Est Glom Filt Rate - Afr Amer 119 mL/min (>60); Estimated Creatinine Clearance 102.27 ml/min; Glucose 134 mg/dL (74-106); Potassium 3.6 mmol/L (3.5-5.1); Protein, Total 6.3 g/dL (6.4-8.2); Sodium Level 141 mmol/L (136-145)
[2019-10-29 07:30] VITALS: O2SAT 98
[2019-10-29] MEDS: DULoxetine Hcl 30 MG Capsule PO (09:40)
[2019-10-29] MEDS: Insulin Lispro 100 UNIT/ML INSULN.PEN 10 UNIT SC (09:41)
--- NOTE | 2019-10-29 09:59 | DCINST_ITS ---
- Discharge Diagnoses Current Active Problems: Current Active and Chronic Problems (Last Updated 10/26/19 @ 14:[address] Melody Stoddard MD) SIRS (systemic inflammatory response syndrome) (Acute) Hypokalemia (Acute) Diabetes mellitus type I (Chronic) You will use the following diet at home:: Calorie/Carbohydrate Controlled (specify 1200, 1400, etc) - 1800 Your food should be the consistency of: Regular Your liquids should be the consistency of: Regular/Thin Discharge Activity: Return to Normal Activity Weight Bearing Status: Weight bearing as tolerated Call your doctor if you observe: Fever of 101 or Higher, - - nausea and poorly controlled vomiting Instructions: Gastroparesis, ED Diabetic Gastroparesis, ED Nausea Vomiting Adult Additional Instructions: patient educated about risks for tardive dyskinesia, and counseled to stop taking metoclorpromide and his antipsychotic meds if he has any abnormal movements. WIll need follow up with warehouse associate driver for suspected gastroparesis. Counseled to stop smoking marijuana due to it causing cyclic vomiting. Allergies/Adverse Reactions: Allergies No Known Allergies Allergy (Verified 10/26/19 11:07) Medications to take at Discharge Glucagon,Human Recombinant [Glucagon Emergency Kit] 1 mg IM ONCE 11/04/18 pen needle, diabetic 32 gauge x 11/05 See Rx Instructions .ROUTE .MEDSUPPLY #150 ea 06/03/19 aripiprazole 5 mg tablet See Rx Instructions .ROUTE .COMPLEX #90 tab 09/09/19 insulin aspart U-100 100 unit/mL (3 mL) subcutaneous pen 10 unit SC TID #15 ml 09/09/19 duloxetine 30 mg capsule,delayed release 30 mg PO BID #180 cap 10/01/19 Insulin Detemir [Levemir Flextouch] 24 unit SUBCUT QHS 10/26/19 Metoclopramide [Reglan] 5 mg PO Q6 #30 tab 10/29/19 The following prescriptions were given: Metoclopramide [Reglan] 5 mg PO Q6 #30 tab Transmission Status: Pending to [facility] Primary Care Physician: Alexandre Katz MD [Primary Care Provider] - Please follow up with your Primary Care Physician in: 1 week Test Results: Test results from this visit will be discussed in further detail at your follow- up appointment, if applicable. Please Follow Up With: Alexandre Katz MD Please Follow Up With: Kole Worley MD When: 1-2 weeks for gastroparesis Proposed Discharge Date: 10/29/19
--- NOTE | 2019-10-29 10:07 | DS.PCM_ITS ---
Discharge Date and Diagnosis Date of Admission: 10/26/19 Date of Discharge: 10/29/19 - Primary Discharge Diagnosis Active and Suspected Problems (Last Updated 10/26/19 @ 14:[address] Melody Stoddard MD) SIRS (systemic inflammatory response syndrome) (Acute) Hypokalemia (Acute) gastroparesis intractable vomiting - Secondary Discharge Diagnosis Chronic Problems (Last Updated 10/26/19 @ 14:[address] Melody Stoddard MD) Erectile dysfunction (Chronic) Hypersomnolence (Chronic) GERD (gastroesophageal reflux disease) (Chronic) Vision problems (Chronic) Arthritis (Chronic) Headache, migraine (Chronic) Diabetes type 1, controlled (Chronic) Dx : age 9 Last exacerbation : DKA : 04/09 Hypoglycemic episode : never ER visit : 04/09 Anxiety and depression (Chronic) Diabetes mellitus type I (Chronic) PUD (peptic ulcer disease) (Chronic) Hospital Course and Treatment Consultations 10/27/19 03:49 Consult: Mental Health/Crisis Routine Reason for consult?: Labile mood, increased stress level d/t hospitalization. Date Notified:: 10/27/19 Time Notified:: 07:30 Operations: None Procedures: None Summary of Care Provided: The patient is a 29 year old M with a PMH as outlined. He was admitted via the ED on 10/26/2019. He was admitted with a complaint of generalized malaise, nausea and vomiting which had been going on for about 4 days prior to admission. Vomiting was incessant and he could not keep anything down and he had associated abdominal pain but no other aggravating or relieving factors. Abdominal pain was vague, mainly in the upper abdomen, he also had some mild cough and shortness of breath. He denied any recent travels. Patient was noted to be tachycardic but tachycardia resolved with IV fluid administration. He was otherwise hemodynamically stable. Hemoglobin was 17.6 and potassium was 3.1 with creatinine of 1.72. Lactic acid was 5 and calcium was 11.2. LFT showed bilirubin of 2.4. Bilirubin was chronically elevated. EKG showed normal sinus rhythm without any acute ST changes and CT of the abdomen revealed normal liver and gallbladder and borderline splenomegaly. He was admitted and managed for intractable nausea and vomiting, MIREILLE and lactic acidosis likely due to dehydration. He was hydrated with IV fluids and given IV Zofran. On further questioning, patient admitted to marijuana use and also admitted to not being very compliant with his diabetes medication with his A1c being 10.7 from August 2019. Was therefore thought that patient could have gastroparesis and could also have cyclical vomiting from marijuana use. Was started on IV metoclopramide. Liver ultrasound done on account of mildly elevated LFTs was also normal. MIREILLE resolved with IV fluid hydration. Hypokalemia also resolved with replacement of potassium. Lactic acidosis also trended down with fluid administration. Patient's nausea and vomiting improved after start of metoclopramide. Patient has not been following up with an db2 systems programmer and has been diabetic since age 8. I counseled patient that his symptoms could be due to gastroparesis and also cyclical vomiting. Patient symptoms improved and he was discharged home on 10/29/2019. He was discharged with a prescription for p.o. metoclopramide 5 mg every 6 hours for total of 30 tablets. Patient was counseled strongly about tardive dyskinesia and the interaction of metoclopramide with his psych meds. Patient is on aripiprazole and duloxetine. Patient was counseled that if he saw any abnormal body movements, he was to stop taking metoclopramide immediately and to follow-up with his PCP. Was also referred to Dr. Worley the vibrating screed operator for further work-up for gastroparesis and he was counseled strongly to stop using marijuana as it can also cause incessant vomiting. Patient seen and examined prior to discharge. He felt better and wanted to be discharged. Review of systems was otherwise negative. Labs and vitals reviewed. Home meds reviewed and reconciled. O/E; Vital Signs Temp Pulse Resp BP Pulse Ox 98 F 95 16 125/84 H 98 10/29/19 10:20 10/29/19 10:20 10/29/19 10:20 10/29/19 10:20 10/29/19 10:20 [] General: Alert, Oriented x3, Cooperative, HEENT: Atraumatic, PERRLA, EOMI, Normocephalic Oral: Dry Mucosa Neck: Supple, No JVD, Negative Carotid Bruits, Negative Hepatojugular Reflux, No Nodes Lungs: Clear to auscultation, Normal air movement, No rhonchi, No wheeze, No rales Cardiovascular: Regular rate, Regular Rhythm, Normal S1, Normal S2, No murmurs Abdomen: Bowel Sounds Present, Soft, - - mild generalised tenderness, no guarding or rebound tenderness Extremities: No clubbing, No cyanosis, No edema, Capillary Refill Less than 3 Seconds Skin: No rashes, No breakdown Musculoskeletal: No Tenderness to Palpation of Joints or Extremities Lymphatic: No Cervical, Supraclavicular, or Inguinal Adenopathy Neurological: Cranial nerves II-XII grossly intact, Neuro grossly intact, Motor Exam 5/5 strength throughout Psych/Mental Status: Normal Affect, Appropriate, Alert and oriented to time, place, person, mood and affect Plan as above. - Physical Exam Vitals/I&O's: Vital Signs Temp Pulse Resp BP Pulse Ox 98.5 F 82 17 133/85 H 98 10/29/19 05:29 10/29/19 07:20 10/29/19 05:29 10/29/19 05:29 10/29/19 07:30 Oxygen Delivery Method Room Air Weight: 140 lb Body Mass Index (BMI) 22.6 Finger Stick Blood Glucose 555 Intake and Output for Last 24 Hours 10/27/19 10/28/19 10/29/19 23:59 23:59 23:59 Intake Total 5165.00 / 5165.00 4080.00 / 4080.00 793.33 / 793.33 Output Total 550 / 550 350 / 350 Balance 4615.00 / 4615.00 4080.00 / 4080.00 443.33 / 443.33 Microbiology Past 72 Hours 10/26/19 17:20 Urine, Clean Catch Urine Culture - Final G. vaginalis (Presumptive) Mixed Gram Positive Organisms 10/26/19 12:11 Blood Culture (Wb) - Anticubital Left Blood Culture - Preliminary No growth in 48 hours. 10/26/19 11:54 Blood Culture (Wb) - Anticubital Right Blood Culture - Preliminary No growth in 48 hours. Laboratory Results 10/28/19 06:30: Total Bilirubin 2.00 H, Direct Bilirubin 0.37 H, AST 25, ALT 14 L, Alkaline Phosphatase 121 H, Total Protein 6.9, Albumin 3.6, Globulin 3.3 10/28/19 12:14: POC Glucose 279 H 10/28/19 16:41: POC Glucose 127 H 10/28/19 23:29: POC Glucose 178 H 10/29/19 05:32: POC Glucose 54 L 10/29/19 06:00: POC Glucose 65 L 10/29/19 06:35: Sodium 141, Potassium 3.6, Chloride 108 H, Carbon Dioxide 26.0, Anion Gap 7, BUN 8, Creatinine 0.94, Estim Creat Clear Calc 102.27, Est GFR (MDRD) Af Amer 119, Est GFR (MDRD) Non-Af 99, BUN/Creatinine Ratio 8.5 L, Glucose 134 H, Calcium 8.4 L, Total Bilirubin 1.40 H, AST 23, ALT 14 L, Alkaline Phosphatase 107, Total Protein 6.3 L, Albumin 3.3, Globulin 3.0, Albumin/Globulin Ratio 1.1 10/29/19 06:35: WBC 6.9, RBC 4.16 L, Hgb 13.3, Hct 39.0 L, MCV 93.8, MCH 32.0, MCHC 34.1, RDW Std Deviation 39.8, RDW Coeff of Nathaniel 11.8, Plt Count 190, MPV 9.6, Immature Gran % (Auto) 0.300, Neut % (Auto) 63.4, Lymph % (Auto) 24.8, [place] % (Auto) 8.7, Eos % (Auto) 2.2, Baso % (Auto) 0.6, Absolute Neuts (auto) 4.4, Absolute Lymphs (auto) 1.72, Nucleated RBC % 0 10/29/19 06:50: POC Glucose 181 H Current Medications Al Hydroxide/Mg Hydroxide (Mylanta Ii) 30 ml PO Q6H PRN PRN PRN Reason: Indigestion, heartburn Aripiprazole (Abilify) 5 mg PO QHS PENDING SALE TO [facility] Last Admin: 10/28/19 21:21 Dose: 5 mg Documented by: Dextrose (D50w Syringe) 0 gm IV X1 PRN; Protocol PRN Reason: Hypoglycemia Duloxetine HCl (Cymbalta) 30 mg PO BID PENDING SALE TO [facility] Last Admin: 10/29/19 09:40 Dose: 30 mg Documented by: Glucagon () 1 mg IM .X1 PRN PRN Reason: Hypoglycemia Potassium Chloride/Sodium Chloride () 1,000 mls @ 100 mls/hr IV .Q10H PENDING SALE TO [facility] Last Admin: 10/29/19 06:02 Dose: 100 mls/hr Documented by: Pantoprazole Sodium 40 mg/ (Sodium Chloride) 110 mls @ 330 mls/hr IV Q12 PENDING SALE TO [facility] Last Admin: 10/29/19 09:40 Dose: 330 mls/hr Documented by: Insulin Glargine (Lantus (Bk)) 24 units SC DAILY PENDING SALE TO [facility] Last Admin: 10/29/19 09:40 Dose: 24 units Documented by: Insulin Human Lispro (Humalog Kwikpen (Bk)) 0 unit SC Q6 PENDING SALE TO [facility]; Protocol Last Admin: 10/29/19 05:37 Dose: Not Given Documented by: Insulin Human Lispro (Humalog Kwikpen ([facility])) 10 unit SC 0800,1200,1700 PENDING SALE TO [facility] Last Admin: 10/29/19 09:41 Dose: 10 u Documented by: Lorazepam (Ativan) 1 mg IV Q6H PRN PRN PRN Reason: ANXIETY Last Admin: 10/28/19 21:21 Dose: 1 mg Documented by: Metoclopramide HCl (Reglan) 2.5 mg IV Q8 JOSE F Last Admin: 10/29/19 05:37 Dose: 2.5 mg Documented by: Morphine Sulfate () 2 mg IV Q4H PRN PRN PRN Reason: Pain Score 6-10/10 Ondansetron HCl (Zofran) 4 mg IV Q8H PRN PRN PRN Reason: NAUSEA/VOMITING Last Admin: 10/28/19 04:21 Dose: 4 mg Documented by: Promethazine HCl (Phenergan) 25 mg IM Q6H PRN PRN PRN Reason: Breakthrough Nausea/Vomiting Last Admin: 10/27/19 09:28 Dose: 25 mg Documented by: Sodium Chloride () 10 - 40 ml IV UD PRN PRN Reason: SALINE FLUSH Last Admin: 10/29/19 05:37 Dose: 20 ml Documented by: Discharge Activity: Return to Normal Activity Weight Bearing Status: Weight bearing as tolerated Call your doctor if you observe: Fever of 101 or Higher, - - nausea and poorly controlled vomiting Home Medications: Medications to take at Discharge Glucagon,Human Recombinant [Glucagon Emergency Kit] 1 mg IM ONCE 11/04/18 pen needle, diabetic 32 gauge x 11/05 See Rx Instructions .ROUTE .MEDSUPPLY #150 ea 06/03/19 aripiprazole 5 mg tablet See Rx Instructions .ROUTE .COMPLEX #90 tab 09/09/19 insulin aspart U-100 100 unit/mL (3 mL) subcutaneous pen 10 unit SC TID #15 ml 09/09/19 duloxetine 30 mg capsule,delayed release 30 mg PO BID #180 cap 10/01/19 Insulin Detemir [Levemir Flextouch] 24 unit SUBCUT QHS 10/26/19 Metoclopramide [Reglan] 5 mg PO Q6 #30 tab 10/29/19 Following Prescrptions Were Given to Patient: Metoclopramide [Reglan] 5 mg PO Q6 #30 tab Transmission Status: Received by [facility] Primary Care Physician: Alexandre Katz MD [Primary Care Provider] - Please follow up with your Primary Care Physician in: 1 week Please Follow Up With: Alexandre Katz MD Please Follow Up With: Kole Worley MD When: 1-2 weeks for gastroparesis Patient Instructions: Gastroparesis, ED Nausea Vomiting Adult, ED Diabetic Gastroparesis Medical Necessity - Tobacco Use Smoking Status: Current every day smoker Tobacco Use: Cigarettes Meaningful Use Info Meaningful Use Diagnoses (Choose all that apply): None applicable Inpatient E&M: 17004 [facility]
[2019-10-29 10:20] VITALS: BP 125/84; PULSE 95; RESP 16; TEMP 36.6; O2SAT 98
--- NOTE | 2019-11-01 15:38 | CASEMGMT ---
SAUNDRA CARMICHAEL Discharge F/U Phone Call LACE: 13 Strata: 3 Discharge date: 10/29/2019 Call date: 11/01/2019 Call time: 1538 Admission dx: Lactic acidosis, MIREILLE, intractable N/V Pt states had been doing great but does c/o some nausea today but states 'ate a lot' today. Pt states no questions regarding discharge instructions/medications at this time. Pt states plans to make f/u appt's tomorrow. Pt states no suggestions for [facility] at this time and states 'You guys were really good.' Pt voices no further questions/concerns/needs at this time. [place] SAUNDRA CARMICHAEL
== END 2019-10-29 10:54 | disposition home or self-care (01) | DRG 422 ==
LOC: ED 14:10 → PCU 14:50
PROVIDERS: Admitting Provider Hospitalist; Emergency Provider Emergency Medicine; PCP Internal Medicine; Visit Provider Student in an Organized Health Care Education/Training Program
DX: E86.0 Dehydration (principal); R65.10 Systemic inflammatory response syndrome (SIRS) of non-infectious origin without acute organ dysfunction; E87.6 Hypokalemia; E10.43 Type 1 diabetes mellitus with diabetic autonomic (poly)neuropathy; K31.84 Gastroparesis; N17.9 Acute kidney failure, unspecified; E87.2 Acidosis; M19.90 Unspecified osteoarthritis, unspecified site; K21.9 Gastro-esophageal reflux disease without esophagitis; F32.9 Major depressive disorder, single episode, unspecified; F41.9 Anxiety disorder, unspecified; F17.210 Nicotine dependence, cigarettes, uncomplicated; Z91.14 Patient's other noncompliance with medication regimen; Z79.4 Long term (current) use of insulin; Z79.899 Other long term (current) drug therapy; Z87.11 Personal history of peptic ulcer disease
CPT/HCPCS: 36415; 71045; 74177; 76705; 80048; 80053; 80076; 80307; 81001; 82009; 82803; 82962; 83605; 83690; 83735; 85025; 87040; 87086; 87088; 93005; 96361; 96365; 96375; 97802; 99285; J7030; Q9967; A4216; J2405

== ENCOUNTER → 2019-11-26 08:36 | Outpatient (CLI) | payer MEDICAID, SELFPAY ==
[2019-11-26 08:14] VITALS: BMI 22.6
[2019-11-26 08:38] LABS: Bacteria 0 SEEN /hpf (None Seen); Mucous, Urine 0 SEEN /hpf (<or=2+); Red Blood Cells-Urine 0 SEEN /hpf (0-5); Squamous Epithelial Cells - UA 0 SEEN /hpf (0-5); White Blood Cells 0 SEEN /hpf (0-5)
[2019-11-26 12:29] LABS: Absolute Lymphocyte Count 1.78 X10^3/uL (0.83-4.51); Absolute Neutrophil Count 2.5 X10^3/uL (2.0-7.7); Basophil# 0.05 X10^3/uL; Eosinophil# 0.33 X10^3/uL; Eosinophils% 6.3 % (0-5); Hematocrit 42.1 % (40-54); Hemoglobin 14.2 g/dL (13.0-16.5); Lymphocyte # 1.78 X10^3/ul (4.0); Lymphocyte % 34.1 % (19-41); Mean Corp Hgb Conc 33.7 g/dL (32-36); Mean Corpuscular Hgb 32.1 pg (27.0-32.0); Mean Corpuscular Volume 95.2 fL (80-94); Mean Platelet Vol. 10.2 fl (6.2-12.0); Monocyte# 0.51 X10^3/uL; Monocyte% 9.8 % (0-10); NRBC Flagged by Analyzer 0 % (0-5); Neutrophil # 2.54 X10^3/uL (2.7-7.7); Neutrophil % 48.6 % (47-70); Platelet Count 299 K/mm3 (150-450); RBC Distribution Width CV 12.3 % (11.6-14.6); RBC Distribution Width SD 43.3 fl (35.1-43.9); Red Blood Count 4.42 M/mm3 (4.6-6.2); White Blood Count 5.2 K/mm3 (4.4-11.0)
[2019-11-26 12:34] LABS: Color, Urine Yellow (Yellow); Glucose, Dipstick 100 mg/dl (Normal); Ketone-Dipstick Negative (Negative); Leukocyte Esterase-Dipstick Negative /ul (Negative); Nitrite-Dipstick Negative (Negative); Occult Blood-Urine Negative /ul (Negative); Protein-Dipstick Negative (Negative); Urine Bilirubin Dipstick Negative (Negative); Urine Clarity Clear (Clear); Urine Urobilinogen Normal (Normal)
[2019-11-26 13:15] LABS: ALB/GLOB Ratio 1.1 RATIO (0.9-2.4); AST(SGOT) 20 U/L (15-37); Alanine Aminotransfer ALT/SGPT 19 U/L (16-61); Albumin, Serum 3.8 g/dL (3.2-5.0); Alkaline Phosphatase 151 U/L (45-117); Anion Gap 5 (5-15); BUN 12 mg/dL (7-18); BUN/Creat Ratio 10.6 RATIO (10-20); Calcium,Total 9.1 mg/dL (8.5-10.1); Chloride 103 mmol/L (98-107); Creatinine, Serum 1.13 mg/dL (0.70-1.30); EST Glomerular Filtration Rate 80 mL/min (>60); Est Glom Filt Rate - Afr Amer 97 mL/min (>60); Globulin 3.6 g/dL (2.2-4.2); Glucose 251 mg/dL (74-106); Microalbumin,Random Urine 9.6 mg/L (NO RANGE EST.); Microalbumin:Creatinine Ratio 11.4 mg/g CRE (<30 mg/g CRE); Potassium 4.4 mmol/L (3.5-5.1); Protein, Total 7.4 g/dL (6.4-8.2); Sodium Level 138 mmol/L (136-145)
== END ==
PROVIDERS: PCP Internal Medicine; Referring Provider Nurse Practitioner Family; Visit Provider Nurse Practitioner Family
DX: E10.9 Type 1 diabetes mellitus without complications (principal); E87.6 Hypokalemia; F41.8 Other specified anxiety disorders; N17.9 Acute kidney failure, unspecified; R11.2 Nausea with vomiting, unspecified
CPT/HCPCS: 36415; 80053; 81001; 82043; 82570; 85025

== ENCOUNTER → 2020-02-29 16:13 | Outpatient (CLI) | payer MEDICAID, SELFPAY ==
[2020-02-29 15:42] VITALS: BMI 22.6
[2020-02-29 16:16] LABS: Bacteria 0 SEEN /hpf (None Seen); Mucous, Urine 0 SEEN /hpf (<or=2+); Red Blood Cells-Urine 0 SEEN /hpf (0-5); Squamous Epithelial Cells - UA 0 SEEN /hpf (0-5); White Blood Cells 0 SEEN /hpf (0-5)
[2020-02-29 16:52] LABS: Color, Urine Yellow (Yellow); Glucose, Dipstick 100 mg/dl (Normal); Ketone-Dipstick Negative (Negative); Leukocyte Esterase-Dipstick Negative /ul (Negative); Nitrite-Dipstick Negative (Negative); Occult Blood-Urine Negative /ul (Negative); Protein-Dipstick Negative (Negative); Urine Bilirubin Dipstick Negative (Negative); Urine Clarity Sl. Cloudy (Clear); Urine Urobilinogen Normal (Normal); Urine pH 6.5 (5.0 - 8.0)
[2020-02-29 16:54] LABS: Absolute Lymphocyte Count 1.95 X10^3/uL (0.83-4.51); Absolute Neutrophil Count 3.4 X10^3/uL (2.0-7.7); Basophil# 0.06 X10^3/uL; Eosinophil# 0.27 X10^3/uL; Eosinophils% 4.3 % (0-5); Hematocrit 45.7 % (40-54); Hemoglobin 16.4 g/dL (13.0-16.5); Lymphocyte # 1.95 X10^3/ul (4.0); Lymphocyte % 31.3 % (19-41); Mean Corp Hgb Conc 35.9 g/dL (32-36); Mean Corpuscular Hgb 31.7 pg (27.0-32.0); Mean Corpuscular Volume 88.2 fL (80-94); Mean Platelet Vol. 9.7 fl (6.2-12.0); Monocyte# 0.58 X10^3/uL; Monocyte% 9.3 % (0-10); NRBC Flagged by Analyzer 0 % (0-5); Neutrophil # 3.37 X10^3/uL (2.7-7.7); Neutrophil % 53.9 % (47-70); Platelet Count 416 K/mm3 (150-450); RBC Distribution Width CV 11.7 % (11.6-14.6); RBC Distribution Width SD 37.3 fl (35.1-43.9); Red Blood Count 5.18 M/mm3 (4.6-6.2); White Blood Count 6.2 K/mm3 (4.4-11.0)
[2020-02-29 17:05] LABS: Albumin, Serum 4.4 g/dL (3.2-5.0); BUN 7 mg/dL (7-18); BUN/Creat Ratio 7.9 RATIO (10-20); Creatinine, Serum 0.88 mg/dL (0.70-1.30); EST Glomerular Filtration Rate 107 mL/min (>60); Est Glom Filt Rate - Afr Amer 129 mL/min (>60); Glucose 129 mg/dL (74-106); Protein, Total 8.6 g/dL (6.4-8.2)
[2020-02-29 17:06] LABS: AST(SGOT) 17 U/L (15-37); Alanine Aminotransfer ALT/SGPT 15 U/L (16-61); Alkaline Phosphatase 178 U/L (45-117); Anion Gap 6 (5-15); Calcium,Total 9.8 mg/dL (8.5-10.1); Chloride 101 mmol/L (98-107); Globulin 4.2 g/dL (2.2-4.2); Potassium 3.7 mmol/L (3.5-5.1); Sodium Level 137 mmol/L (136-145)
== END ==
PROVIDERS: PCP Internal Medicine; Referring Provider Internal Medicine; Visit Provider Internal Medicine
DX: R10.9 Unspecified abdominal pain (principal)
CPT/HCPCS: 36415; 80053; 81001; 85025

== ENCOUNTER 2020-03-02 15:58 | Emergency (ER) | payer MEDICAID, SELFPAY ==
[2020-02-29 15:42] VITALS: BMI 22.6
[2020-03-02 15:59] VITALS: BP 134/86; PULSE 108; RESP 16; TEMP 36.4; O2SAT 97; BMI 20.7
--- NOTE | 2020-03-02 16:12 | ED.DCSUM_ITS ---
History of Present Illness Chief Complaint: Flank Pain Informant: Patient Onset: Days - Several days ago Context: Sudden Onset Timing: Continuous, Waxes and wanes Quality: Pain Location: Left flank/T10-T11 dermatome Current Severity: Mild Maximum Severity: Severe Worsened by: Mid and light touch Relieved by: Nothing Associated Symptoms: Polydipsia and polyuria with elevated blood sugars Narrative: Patient is a 29-year-old male with 1 diabetes since the age of 9. Patient presents because of left-sided pain that started several days ago. He does report probably tipsy and polyuria. He states his blood sugars have been elevated. He states he now has them under control. He denies dysuria or hematuria. He denies history of renal ureterolithiasis. He denies testicular pain. He denies any trauma. He has had a runny nose for approximately 1 week. He denies fever or chills. He denies respiratory symptoms. He denies nausea, vomiting or diarrhea. He states the rash initially started as blisters. Prior similar symptoms: No Recent Illness/Hospitalization: No - Past Medical History (1) Anxiety and depression Status: Chronic (2) Diabetes mellitus type I Status: Chronic (3) GERD (gastroesophageal reflux disease) Status: Chronic (4) Headache, migraine Status: Chronic (5) PUD (peptic ulcer disease) Status: Chronic Past Medical History - Allergies and Home Meds Allergies/Adverse Reactions: Allergies No Known Allergies Allergy (Verified 03/02/20 16:01) Primary Care Physician: Alexandre Katz MD [Primary Care Provider] - Prior records reviewed: Yes Surgical History: no surgical history Lives: Alone Smoking Status: Current every day smoker Alcohol: Rare Drugs: None - Family History Maternal Family History: Family History (Last Reviewed 10/26/19 @ 14:[address] Melody Stoddard MD) Grandfather Myocardial infarction COPD (chronic obstructive pulmonary disease) Brother Depression Uncle Diabetes Father Diabetes Aunt Diabetes Family History: Reports: No pertinent history Paternal Family History: Family History (Last Reviewed 10/26/19 @ 14:[address] Melody Stoddard MD) Grandfather Myocardial infarction COPD (chronic obstructive pulmonary disease) Brother Depression Uncle Diabetes Father Diabetes Aunt Diabetes Family History: Reports: Diabetes - AUNT AND UNCLES HAS H/O DM 2 Review of Systems General: Denies: Chills, Fever, Malaise, Sweats Eyes: Reports: Blurred Vision - bilaterally. Denies: Visual changes - bilaterally ENT: Reports: Rhinorrhea. Denies: Bilateral ear pain, Sore throat Cardiovascular: Denies: Chest pain, Palpitations Respiratory: Denies: Dyspnea, Cough, Dyspnea on exertion Gastrointestinal: Denies: Abdominal pain, Nausea, Vomiting, Diarrhea, Melena, Hematochezia Genitourinary: Reports: Frequency. Denies: Dysuria, Hematuria, -, - Musculoskeletal: Reports: Back pain. Denies: Myalgias, Arthralgias, Neck pain, Swelling, Extremity Pain, -, - Skin: Reports: Rash Neurological: Denies: Headache, Weakness Endocrine: Reports: Polyuria, Polydipsia Hematologic: Denies: Easy bruising, Easy bleeding Physical Exam Vital Signs/Narrative: Vital Signs Temp Pulse Resp BP Pulse Ox 03/02/20 15:59 97.6 F L 108 H 16 134/86 H 97 Inital Vital Signs reviewed: Yes General: Well nourished, Well developed, No Acute Distress Head: Normocephalic, Atraumatic Eyes: Perrl, EOMI. Negative for: Pale conjunctiva, Scleral icterus ENT: Moist mucous membranes, No rhinorrhea, TM's clear Neck: Supple, Nontender, No lymphadenopathy, No JVD Cardiovascular: Regular rhythm, No murmurs, Normal S1, Normal S2, Tachycardia Respiratory: No distress, CTA bilaterally, Chest nontender Abdomen: Soft, Nontender, Nondistended, Normal bowel sounds Back: Normal Inspection. Negative for: Nontender, CVA tenderness Skin: Normal color, No Trauma, Rash - There are lesions that are crusted over in the T10-T11 dermatome. There is hypersensitivity in the same dermatome.. Negative for: Cyanosis, Diaphoresis, Jaundice Neurological: Alert, Oriented x3, Cranial nerves II-XII grossly intact, Normal Strength, Normal Sensation Psychological: Normal affect, Normal Mood Diagnostic/Tx/Re-eval Laboratory Results 03/02/20 03/02/20 03/02/20 16:26 16:26 16:26 WBC 6.9 RBC 4.18 L Hgb 13.5 Hct 37.2 L MCV 89.0 MCH 32.3 H MCHC 36.3 H RDW Std Deviation 37.2 RDW Coeff of Nathaniel 11.7 Plt Count 270 MPV 9.7 Immature Gran % (Auto) 0.400 Neut % (Auto) 69.6 Lymph % (Auto) 19.8 [place] % (Auto) 7.7 Eos % (Auto) 1.9 Baso % (Auto) 0.6 Absolute Neuts (auto) 4.8 Absolute Lymphs (auto) 1.36 Nucleated RBC % 0 Sodium 134 L Potassium 4.1 Chloride 100 Carbon Dioxide 27.0 Anion Gap 7 BUN 11 Creatinine 0.95 Estim Creat Clear Calc 95.77 Est GFR (MDRD) Af Amer 118 Est GFR (MDRD) Non-Af 97 BUN/Creatinine Ratio 11.5 Glucose 529 H* Calcium 8.6 Urine Color Straw Urine Clarity Clear Urine pH 6.0 Ur Specific Aubrey 1.010 Urine Protein 15 H Urine Glucose (UA) 1000 H Urine Ketones 5 H Urine Occult Blood Negative Urine Nitrite Negative Urine Bilirubin Negative Urine Urobilinogen Normal Ur Leukocyte Esterase Negative Urine RBC 0 SEEN Urine WBC 0 SEEN Ur Squamous Epith Cells 0 SEEN Urine Bacteria 0 SEEN Urine Mucus 0 SEEN Blood work is remarkable hyperglycemia. Blood sugars greater than 500. CO2 and anion gap are normal. Patient was treated with IV fluids and insulin. Suspect patient has herpes varicella-zoster and the reason why he is having trouble controlling his blood sugar the last several days. His urinalysis is clean. Was positive for glucose. - Medical Decision Making Differential diagnosis includes ureterolithiasis, herpes varicella-zoster, musculoskeletal pain. Because patient reports elevated blood sugar will obtain a BMP to assess electrolytes, blood sugar as well as renal function. UA was obtained to assess for evidence of infection and ketones. ED Disposition - Plan for ED Patient: Disposition: Home or Assisted Living Diagnosis: VZV (varicella-zoster virus) infection, Controlled type 1 diabetes mellitus with hyperglycemia, with long-term current use of insulin Instructions: ED Diabetic Hyperglycemia, ED Shingles Referrals: Alexandre Katz MD [Primary Care Provider] - 3-5 Days
[2020-03-02 16:36] LABS: Bacteria 0 SEEN /hpf (None Seen); Mucous, Urine 0 SEEN /hpf (<or=2+); Red Blood Cells-Urine 0 SEEN /hpf (0-5); Squamous Epithelial Cells - UA 0 SEEN /hpf (0-5); White Blood Cells 0 SEEN /hpf (0-5)
[2020-03-02 16:37] LABS: Absolute Lymphocyte Count 1.36 X10^3/uL (0.83-4.51); Absolute Neutrophil Count 4.8 X10^3/uL (2.0-7.7); Basophil# 0.04 X10^3/uL; Basophil% 0.6 % (0-1); Color, Urine Straw (Yellow); Eosinophil# 0.13 X10^3/uL; Eosinophils% 1.9 % (0-5); Glucose, Dipstick 1000 mg/dl (Normal); Hematocrit 37.2 % (40-54); Hemoglobin 13.5 g/dL (13.0-16.5); Ketone-Dipstick 5 mg/dl (Negative); Leukocyte Esterase-Dipstick Negative /ul (Negative); Lymphocyte # 1.36 X10^3/ul (4.0); Lymphocyte % 19.8 % (19-41); Mean Corp Hgb Conc 36.3 g/dL (32-36); Mean Corpuscular Hgb 32.3 pg (27.0-32.0); Mean Platelet Vol. 9.7 fl (6.2-12.0); Monocyte# 0.53 X10^3/uL; Monocyte% 7.7 % (0-10); NRBC Flagged by Analyzer 0 % (0-5); Neutrophil # 4.79 X10^3/uL (2.7-7.7); Neutrophil % 69.6 % (47-70); Nitrite-Dipstick Negative (Negative); Occult Blood-Urine Negative /ul (Negative); Platelet Count 270 K/mm3 (150-450); Protein-Dipstick 15 mg/dl (Negative); RBC Distribution Width CV 11.7 % (11.6-14.6); RBC Distribution Width SD 37.2 fl (35.1-43.9); Red Blood Count 4.18 M/mm3 (4.6-6.2); Urine Bilirubin Dipstick Negative (Negative); Urine Clarity Clear (Clear); Urine Urobilinogen Normal (Normal); White Blood Count 6.9 K/mm3 (4.4-11.0)
[2020-03-02 17:05] LABS: Anion Gap 7 (5-15); BUN 11 mg/dL (7-18); BUN/Creat Ratio 11.5 RATIO (10-20); Calcium,Total 8.6 mg/dL (8.5-10.1); Chloride 100 mmol/L (98-107); Creatinine, Serum 0.95 mg/dL (0.70-1.30); EST Glomerular Filtration Rate 97 mL/min (>60); Est Glom Filt Rate - Afr Amer 118 mL/min (>60); Estimated Creatinine Clearance 95.77 ml/min; Glucose 529 mg/dL (74-106); Potassium 4.1 mmol/L (3.5-5.1); Sodium Level 134 mmol/L (136-145)
[2020-03-02] MEDS: 0.9% Normal Saline 1,000 ML 1000 ML IV (18:01)
[2020-03-02] MEDS: Insulin Lispro 100 UNIT/ML INSULN.PEN 10 UNIT SC (18:01)
[2020-03-02 18:17] VITALS: BP 114/89; PULSE 70; RESP 16; O2SAT 99
[2020-03-02 19:21] VITALS: BP 124/84; PULSE 72; RESP 17; O2SAT 100
[2020-03-02 19:21] LABS: Bedside Glucose 331 mg/dL (70-110)
== END 2020-03-02 19:22 | disposition home or self-care (01) ==
PROVIDERS: Emergency Provider Emergency Medicine; PCP Internal Medicine
DX: B02.9 Zoster without complications (principal); E10.65 Type 1 diabetes mellitus with hyperglycemia; K21.9 Gastro-esophageal reflux disease without esophagitis; F32.9 Major depressive disorder, single episode, unspecified; F41.9 Anxiety disorder, unspecified; F17.200 Nicotine dependence, unspecified, uncomplicated; Z79.4 Long term (current) use of insulin; Z79.899 Other long term (current) drug therapy; Z87.11 Personal history of peptic ulcer disease
CPT/HCPCS: 80048; 81001; 82962; 85025; 96360; 99283; J7030

== ENCOUNTER 2020-07-26 22:03 | Emergency (ER) | payer MEDICAID, SELFPAY ==
[2020-07-26 22:04] VITALS: BP 151/74; PULSE 124; RESP 18; TEMP 36.4; O2SAT 97; BMI 20.8
[2020-07-26 22:26] LABS: Bedside Glucose 170 mg/dL (70-110)
--- NOTE | 2020-07-26 22:33 | CT_ITS ---
STUDY: CT ABDOMEN AND PELVIS WITHOUT CONTRAST REASON FOR EXAM: Male, 30 years old. Headache and vomiting. Left flank pain. TECHNIQUE: Transaxial images were obtained from the dome of the diaphragm to the symphysis pubis without oral contrast, and without intravenous contrast. Sagittal and coronal images were reconstructed. Individualized dose optimization techniques were used for this CT. COMPARISON: 10/26/2019 CT abdomen and pelvis. FINDINGS: Partially visualized lower chest: Lung bases unremarkable. Liver: No concerning lesions. Gallbladder and biliary tree: No visible gallstones. No pericholecystic inflammation. No biliary ductal dilation. Pancreas: No pancreatic lesions or inflammation. Spleen: Normal size, no splenic lesions. Adrenal glands: No concerning masses. Kidneys and ureters: No hydronephrosis or obstructing renal stones. No concerning masses. No ureteral dilation. Punctate nonobstructing stone lower pole right kidney. Bowel: Normal appendix. Fluid throughout the bowel with little formed stool. No obstruction or inflammation of the bowel. Urinary bladder: No stones or wall thickening. Reproductive:Normal size prostate. Vascular: No abdominal aortic aneurysm. Retroperitoneal and peritoneal spaces: No ascites or free air. No retroperitoneal lesions. Osseous: No acute osseous abnormality. Abdominal and pelvic wall: No concerning findings. CT/Abdomen/Pelvis without Cont IMPRESSION: Fluid throughout the bowel with little formed stool suggestive of diarrheal illness. No obstruction or inflammation of the bowel. Punctate nonobstructing stone lower pole right kidney. Electronically Signed: Kehinde Saul MD at 23:33 EST Tel , Service support ,
--- NOTE | 2020-07-26 22:33 | CT_ITS ---
STUDY: CT BRAIN WITHOUT CONTRAST REASON FOR EXAM: Male, 30 years old. Headache and vomiting. Diabetes and hypertension. TECHNIQUE: Transaxial CT imaging of the brain was performed without administration of intravenous contrast material. Individualized dose optimization techniques were used for this CT. COMPARISON: 01/02/2018 CT brain. FINDINGS: No evidence of intracranial hemorrhage, mass, infarct or hydrocephalus. No skull fracture. Visualized paranasal sinuses and mastoid air cells patent. Visualized extracranial soft tissues unremarkable. ASPECTS [address]/Brain/Head without Contrast IMPRESSION: Negative CT brain without contrast. Electronically Signed: Kehinde Saul MD at 23:27 EST Tel , Service support ,
--- NOTE | 2020-07-26 22:34 | ED.VIS.GEN ---
History of Present Illness Chief Complaint: Flank Pain Informant: Patient Onset: Hours - 1-2 Context: Gradual Onset Timing: Continuous, Waxes and wanes Quality: sharp/sore Location: LUQ/flank; no radiation or back pain Current Severity: Mild Maximum Severity: Severe Worsened by: unsure Relieved by: nothing Associated Symptoms: headache, visual disturbance, n/v, dizzy, chills, anxiety Narrative: Patient is a type 1 insulin-dependent diabetic, with a history of having had a heart attack when he was 19 years old for reasons that he is not aware of, and also history of migraines. He has been having visual disturbances off and on for the last day or 2, and tonight he was at work and feeling well, then he started having another visual disturbance that looked like static when I looked down, followed by photophobia and lights seeming very bright, then he started having left-sided abdominal pain that was colicky, followed by his headache, worsening of symptoms, and vomiting. He states the first time he vomited he vomited up a small amount of blood. Then he said he did not see any more blood, although he continued to vomit. He states that the headache feels like it is behind the inside corner of his left eye, initially it was behind the inside corner of his right eye. He has had migraines that felt like this before, but he does not vomit with them, and this 1 is worse than usual. He is very anxious. He states he thinks he had chest pain when he had his heart attack but he does not recall what it felt like, he does recall feeling short of breath and having left arm pain, which he is not having now. He is pointing to his left lower rib cage anteriorly when he discusses his left upper quadrant pain. He does not describe it as chest pain. Recent Illness/Hospitalization: No - Past Medical History (1) Anxiety and depression Status: Chronic (2) Arthritis Status: Chronic (3) Diabetes mellitus type I Status: Chronic (4) GERD (gastroesophageal reflux disease) Status: Chronic (5) Headache, migraine Status: Chronic (6) PUD (peptic ulcer disease) Status: Chronic Past Medical History - Allergies and Home Meds Allergies/Adverse Reactions: Allergies No Known Allergies Allergy (Verified 07/26/20 22:07) Primary Care Physician: Alexandre Katz MD [Primary Care Provider] - 3-5 Days if not improving Surgical History: no surgical history Lives: - - Works at [employer] Smoking Status: Current some day smoker - Family History Maternal Family History: Family History (Last Reviewed 10/26/19 @ 14:[address] Melody Stoddard MD) Grandfather Myocardial infarction COPD (chronic obstructive pulmonary disease) Brother Depression Uncle Diabetes Father Diabetes Aunt Diabetes Family History: Reports: No pertinent history Paternal Family History: Family History (Last Reviewed 10/26/19 @ 14:[address] Melody Stoddard MD) Grandfather Myocardial infarction COPD (chronic obstructive pulmonary disease) Brother Depression Uncle Diabetes Father Diabetes Aunt Diabetes Family History: Reports: Diabetes - AUNT AND UNCLES HAS H/O DM 2 Review of Systems General: Reports: Chills, Malaise. Denies: Fever, Sweats Eyes: Reports: Visual changes - bilaterally. Denies: Diplopia ENT: Denies: Bilateral ear pain, Rhinorrhea, Sore throat Cardiovascular: Denies: Chest pain, Palpitations Respiratory: Denies: Dyspnea, Cough, Dyspnea on exertion Gastrointestinal: Reports: Abdominal pain, Nausea, Vomiting - w/ intermittent minor hematemesis. Denies: Diarrhea, Melena, Hematochezia Genitourinary: Denies: Dysuria, Hematuria, Frequency Musculoskeletal: Denies: Myalgias, Neck pain, Back pain, Swelling, Extremity Pain Skin: Denies: Rash, Wounds Neurological: Reports: Headache, - - dysequilibrium x several days. Denies: Weakness, Numbness Physical Exam Vital Signs/Narrative: Vital Signs Temp Pulse Resp BP Pulse Ox 07/26/20 22:04 97.6 F L 124 H 18 151/74 H 97 Inital Vital Signs reviewed: Yes General: Well nourished, Well developed, Acute Distress - very anxious, covering eyes Head: Normocephalic, Atraumatic Eyes: Perrl, EOMI, - - mild photophobia ENT: Moist mucous membranes, No rhinorrhea Neck: Supple, Nontender, No lymphadenopathy Cardiovascular: Regular rate, Regular rhythm, No murmurs, Tachycardia Respiratory: No distress, CTA bilaterally, Chest nontender, - - no splinting on deep inspiration Abdomen: Soft, Nondistended, Normal bowel sounds, Tender - LUQ and left mid abd into flank. Negative for: Guarding, Rebound tenderness, Hepatomegaly, Splenomegaly Back: Nontender, Normal Inspection. Negative for: CVA tenderness Extremities: Nontender, No edema. Negative for: Calf Tenderness Skin: Normal color, No rash, No Trauma Neurological: Alert, Oriented x3, Cranial nerves II-XII grossly intact, Normal Strength, Normal Sensation, Normal Gait Psychological: Normal Mood, - - anxious to the point of having difficulty answering questions directly Diagnostic/Tx/Re-eval Impressions Abdomen/Pelvis CT 07/26/20 22:33 IMPRESSION: Fluid throughout the bowel with little formed stool suggestive of diarrheal illness. No obstruction or inflammation of the bowel. Punctate nonobstructing stone lower pole right kidney. Electronically Signed: Kehinde Saul MD at 23:33 EST Tel , Service support , Brain CT 07/26/20 22:33 IMPRESSION: Negative CT brain without contrast. Electronically Signed: Kehinde Saul MD at 23:27 EST Tel , Service support , 07/26/20 22:33 Abdomen/Pelvis without Cont [CT] Stat CT Brain [Brain/Head without Contrast] [CT] Stat Laboratory Results 07/26/20 07/26/20 07/26/20 22:19 22:20 22:20 WBC 7.3 RBC 5.13 Hgb 16.1 Hct 43.7 MCV 85.2 MCH 31.4 MCHC 36.8 H RDW Std Deviation 34.8 L RDW Coeff of Nathaniel 11.3 L Plt Count 419 MPV 9.9 Immature Gran % (Auto) 0.300 Neut % (Auto) 66.0 Lymph % (Auto) 22.0 [place] % (Auto) 8.7 Eos % (Auto) 1.9 Baso % (Auto) 1.1 H Absolute Neuts (auto) 4.8 Absolute Lymphs (auto) 1.60 Nucleated RBC % 0 Sodium 137 Potassium 3.7 Chloride 105 Carbon Dioxide 22.0 Anion Gap 10 BUN 15 Creatinine 1.33 H Estim Creat Clear Calc 68.04 Est GFR (MDRD) Af Amer 80 Est GFR (MDRD) Non-Af 66 BUN/Creatinine Ratio 11.3 Glucose 182 H Calcium 10.2 H Total Bilirubin 1.30 H AST 15 ALT 16 Alkaline Phosphatase 163 H Total Protein 9.0 H Albumin 4.7 Globulin 4.3 H Albumin/Globulin Ratio 1.1 Lipase 62 L POC Glucose 170 H - Rhythm Strip Rhythm Strip: Sinus Tach Rate: 115 Ectopy: None - EKG Initial EKG Interpretation: Sinus Rhythm, No Acute Injury Pattern - normal EKG Prior: Unchanged - Medical Decision Making Given the patient's vague history and him telling me he has a history of coronary disease, I obtained an EKG, it is normal, and in my opinion I do not need a troponin in order to rule out acute coronary syndrome as cause of these symptoms which really are atypical for cardiac etiology. With Reglan and Toradol, he is feeling much better but still has a migraine. As above imaging is unremarkable except for an incidental punctate stone in the right kidney which is nonobstructing and not causing or related to any of the symptoms. He has an elevated bilirubin but this is chronic for him, possibly indicating Gilbert's disease. I reassured him regarding the pain in his abdomen, this could be muscular, gastritis, or a stone that he passed. Also reassuring regarding his brain imaging, which shows nothing acute. We will place him on a daily PPI for the next couple weeks, and also prescribe him Reglan to use as needed for nausea/migraine, and advised to follow-up closely with his doctor as an outpatient. He has no significant anemia or elevation in his BUN to suggest any type of major or hemodynamically significant GI bleeding. Urine just showed glycosuria and no sign of infection or blood. ED Disposition - Plan for ED Patient: Disposition: Home or Assisted Living Diagnosis: Gastritis with bleeding, Headache, migraine Instructions: ED Gastritis (Adult), ED, Migraine (Classical) Prescriptions: Omeprazole 1 cap PO DAILY #14 capsule.dr Prescription Printed Metoclopramide [Reglan] 10 mg PO Q6H PRN #20 tab PRN Reason: Headache or nausea Prescription Printed Referrals: Alexandre Katz MD [Primary Care Provider] - 3-5 Days if not improving
[2020-07-26 22:43] LABS: Absolute Neutrophil Count 4.8 X10^3/uL (2.0-7.7); Basophil# 0.08 X10^3/uL; Basophil% 1.1 % (0-1); Eosinophil# 0.14 X10^3/uL; Eosinophils% 1.9 % (0-5); Hematocrit 43.7 % (40-54); Hemoglobin 16.1 g/dL (13.0-16.5); Mean Corp Hgb Conc 36.8 g/dL (32-36); Mean Corpuscular Hgb 31.4 pg (27.0-32.0); Mean Corpuscular Volume 85.2 fL (80-94); Mean Platelet Vol. 9.9 fl (6.2-12.0); Monocyte# 0.63 X10^3/uL; Monocyte% 8.7 % (0-10); NRBC Flagged by Analyzer 0 % (0-5); Platelet Count 419 K/mm3 (150-450); RBC Distribution Width CV 11.3 % (11.6-14.6); RBC Distribution Width SD 34.8 fl (35.1-43.9); Red Blood Count 5.13 M/mm3 (4.6-6.2); White Blood Count 7.3 K/mm3 (4.4-11.0)
--- NOTE | 2020-07-26 22:43 | EKG12_ITS ---
Test Reason : FLANK PAIN Blood Pressure : / mmHG Vent. Rate : 092 BPM Atrial Rate : 092 BPM P-R Int : 134 ms QRS Dur : 080 ms QT Int : 340 ms P-R-T Axes : 059 053 060 degrees QTc Int : 420 ms Normal sinus rhythm Normal ECG Confirmed by GRICELDA CHAPMAN, CYNTHIA ([id number]), book editor MAJO SAEED ([id number]) on 07/28/2020 11:08:09 AM Referred By: GIAN Confirmed By:CYNTHIA MADISON MD
[2020-07-26] MEDS: Metoclopramide 10 MG/2 ML Vial IV (22:47)
[2020-07-26] MEDS: Ketorolac 30 MG/ML Syringe IV (22:47)
[2020-07-26 22:55] LABS: ALB/GLOB Ratio 1.1 RATIO (0.9-2.4); AST(SGOT) 15 U/L (15-37); Alanine Aminotransfer ALT/SGPT 16 U/L (16-61); Albumin, Serum 4.7 g/dL (3.2-5.0); Alkaline Phosphatase 163 U/L (45-117); Anion Gap 10 (5-15); BUN 15 mg/dL (7-18); BUN/Creat Ratio 11.3 RATIO (10-20); Calcium,Total 10.2 mg/dL (8.5-10.1); Chloride 105 mmol/L (98-107); Creatinine, Serum 1.33 mg/dL (0.70-1.30); EST Glomerular Filtration Rate 66 mL/min (>60); Est Glom Filt Rate - Afr Amer 80 mL/min (>60); Estimated Creatinine Clearance 68.04 ml/min; Globulin 4.3 g/dL (2.2-4.2); Glucose 182 mg/dL (74-106); Lipase 62 U/L (73-393); Potassium 3.7 mmol/L (3.5-5.1); Sodium Level 137 mmol/L (136-145)
[2020-07-26 23:34] LABS: Bacteria 0 SEEN /hpf (None Seen); Mucous, Urine 0 SEEN /hpf (<or=2+); Red Blood Cells-Urine 0 SEEN /hpf (0-5)
[2020-07-26 23:41] LABS: Color, Urine Yellow (Yellow); Glucose, Dipstick 1000 mg/dl (Normal); Ketone-Dipstick Negative (Negative); Leukocyte Esterase-Dipstick Negative /ul (Negative); Nitrite-Dipstick Negative (Negative); Occult Blood-Urine Negative /ul (Negative); Protein-Dipstick 30 mg/dl (Negative); Urine Bilirubin Dipstick Negative (Negative); Urine Clarity Clear (Clear); Urine Urobilinogen Normal (Normal)
[2020-07-26 23:53] VITALS: BP 106/70; PULSE 103; RESP 18; O2SAT 96
[2020-07-26 23:53] LABS: Amorphous Sediment 1+; Squamous Epithelial Cells - UA 0-5 SEEN /hpf (0-5); White Blood Cells 0-5 SEEN /hpf (0-5)
== END 2020-07-26 23:54 | disposition home or self-care (01) ==
PROVIDERS: Emergency Provider Emergency Medicine; PCP Internal Medicine
DX: K29.71 Gastritis, unspecified, with bleeding (principal); R10.12 Left upper quadrant pain; G43.909 Migraine, unspecified, not intractable, without status migrainosus; E10.9 Type 1 diabetes mellitus without complications; M19.90 Unspecified osteoarthritis, unspecified site; K21.9 Gastro-esophageal reflux disease without esophagitis; F32.9 Major depressive disorder, single episode, unspecified; F41.9 Anxiety disorder, unspecified; F17.200 Nicotine dependence, unspecified, uncomplicated; Z79.4 Long term (current) use of insulin; Z79.899 Other long term (current) drug therapy; I25.2 Old myocardial infarction; Z87.11 Personal history of peptic ulcer disease
CPT/HCPCS: 70450; 74176; 80053; 81001; 82962; 83690; 85025; 93005; 96374; 96375; 99283; J7050; A4216

== ENCOUNTER → 2020-08-11 08:56 | Outpatient (CLI) | payer MEDICAID, SELFPAY ==
[2020-08-11 08:07] VITALS: BMI 21.0
[2020-08-11 12:50] LABS: Erythrocyte Sedimentation Rate 4 mm/hr (0-20)
[2020-08-11 12:55] LABS: Vitamin D,25 Hydroxy 9.8 ng/mL
[2020-08-11 13:10] LABS: PTHIN 66.5 pg/mL (18.4-80.1)
[2020-08-11 15:31] LABS: ALB/GLOB Ratio 1.1 RATIO (0.9-2.4); AST(SGOT) 21 U/L (15-37); Alanine Aminotransfer ALT/SGPT 15 U/L (16-61); Albumin, Serum 4.1 g/dL (3.2-5.0); Alkaline Phosphatase 142 U/L (45-117); Anion Gap 9 (5-15); BUN 9 mg/dL (7-18); BUN/Creat Ratio 9.3 RATIO (10-20); CRP < 2.90 mg/L (0.0-3.0); Chloride 103 mmol/L (98-107); Creatinine, Serum 0.96 mg/dL (0.70-1.30); EST Glomerular Filtration Rate 96 mL/min (>60); Est Glom Filt Rate - Afr Amer 116 mL/min (>60); Globulin 3.7 g/dL (2.2-4.2); Glucose 167 mg/dL (74-106); Potassium 3.7 mmol/L (3.5-5.1); Protein, Total 7.8 g/dL (6.4-8.2); Rheumatoid Factor < 10.0 IU/mL (<15); Sodium Level 138 mmol/L (136-145); T4 Free Direct 1.15 ng/dL (0.76-1.46); Thyroid Stim Hormone (TSH) 1.78 uIU/mL (0.358-3.74)
[2020-08-12 10:16] LABS: Thyroid Peroxidase AB < 9 IU/mL (0-34)
== END ==
PROVIDERS: PCP Internal Medicine; Referring Provider Internal Medicine Endocrinology, Diabetes & Metabolism; Visit Provider Internal Medicine Endocrinology, Diabetes & Metabolism
DX: E10.9 Type 1 diabetes mellitus without complications (principal); E55.9 Vitamin D deficiency, unspecified; M19.90 Unspecified osteoarthritis, unspecified site
CPT/HCPCS: 36415; 80053; 82306; 83970; 84439; 84443; 85652; 86140; 86376; 86431

== ENCOUNTER → 2020-12-08 14:09 | Outpatient (CLI) | payer MEDICAID, SELFPAY ==
[2020-12-08 13:50] VITALS: BMI 21.6
[2020-12-08 15:34] LABS: Hemoglobin A1c 8.1 % (3.8-5.6)
[2020-12-08 15:40] LABS: Absolute Neutrophil Count 3.2 X10^3/uL (2.0-7.7); Basophil# 0.05 X10^3/uL; Basophil% 0.9 % (0-1); Eosinophils% 3.8 % (0-5); Hematocrit 41.9 % (40-54); Hemoglobin 14.8 g/dL (13.0-16.5); Lymphocyte % 26.4 % (19-41); Mean Corp Hgb Conc 35.3 g/dL (32-36); Mean Corpuscular Hgb 31.2 pg (27.0-32.0); Mean Corpuscular Volume 88.4 fL (80-94); Mean Platelet Vol. 9.9 fl (6.2-12.0); Monocyte% 7.5 % (0-10); NRBC Flagged by Analyzer 0 % (0-5); Neutrophil # 3.24 X10^3/uL (2.7-7.7); Neutrophil % 61.2 % (47-70); Platelet Count 305 K/mm3 (150-450); RBC Distribution Width CV 11.9 % (11.6-14.6); RBC Distribution Width SD 38.2 fl (35.1-43.9); Red Blood Count 4.74 M/mm3 (4.6-6.2); White Blood Count 5.3 K/mm3 (4.4-11.0)
[2020-12-08 15:47] LABS: ALB/GLOB Ratio 1.2 RATIO (0.9-2.4); AST(SGOT) 16 U/L (15-37); Alanine Aminotransfer ALT/SGPT 12 U/L (16-61); Alkaline Phosphatase 118 U/L (45-117); Anion Gap 7 (5-15); BUN 11 mg/dL (7-18); BUN/Creat Ratio 11.7 RATIO (10-20); Calcium,Total 8.9 mg/dL (8.5-10.1); Chloride 102 mmol/L (98-107); Creatinine, Serum 0.94 mg/dL (0.70-1.30); EST Glomerular Filtration Rate 98 mL/min (>60); Est Glom Filt Rate - Afr Amer 119 mL/min (>60); Globulin 3.4 g/dL (2.2-4.2); Glucose 373 mg/dL (74-106); Potassium 4.1 mmol/L (3.5-5.1); Protein, Total 7.4 g/dL (6.4-8.2); Sodium Level 136 mmol/L (136-145)
== END ==
PROVIDERS: PCP Internal Medicine; Referring Provider Internal Medicine; Visit Provider Internal Medicine
DX: E10.65 Type 1 diabetes mellitus with hyperglycemia (principal)
CPT/HCPCS: 36415; 80053; 83036; 85025

== ENCOUNTER 2021-01-25 17:05 | Emergency (ER) | payer MEDICAID, SELFPAY ==
[2020-12-08 13:50] VITALS: BMI 21.6
[2021-01-25 17:07] VITALS: BP 131/82; PULSE 85; RESP 16; TEMP 37; O2SAT 98; BMI 21.4
--- NOTE | 2021-01-25 17:17 | EKG12_ITS ---
Test Reason : Blood Pressure : / mmHG Vent. Rate : 070 BPM Atrial Rate : 070 BPM P-R Int : 150 ms QRS Dur : 082 ms QT Int : 372 ms P-R-T Axes : 062 062 064 degrees QTc Int : 401 ms Normal sinus rhythm Normal ECG Confirmed by GRICELDA CHAPMAN, CYNTHIA ([id number]), acquisitions editor SHIRA FITCH ([id number]) on 01/29/2021 9:06:57 AM Referred By: JONO Confirmed By:CYNTHIA MADISON MD
[2021-01-25] MEDS: 0.9% Normal Saline 1,000 ML 999 ML IV (17:43)
[2021-01-25 17:48] LABS: Absolute Lymphocyte Count 1.04 X10^3/uL (0.83-4.51); Basophil# 0.03 X10^3/uL; Basophil% 0.6 % (0-1); Eosinophil# 0.14 X10^3/uL; Hematocrit 38.9 % (40-54); Hemoglobin 13.6 g/dL (13.0-16.5); Lymphocyte # 1.04 X10^3/ul (0.83-4.51); Lymphocyte % 22.3 % (19-41); Mean Corpuscular Hgb 31.1 pg (27.0-32.0); Mean Platelet Vol. 9.4 fl (6.2-12.0); Monocyte% 8.6 % (0-10); NRBC Flagged by Analyzer 0 % (0-5); Neutrophil # 3.04 X10^3/uL (2.7-7.7); Neutrophil % 65.3 % (47-70); Platelet Count 250 K/mm3 (150-450); RBC Distribution Width CV 11.6 % (11.6-14.6); RBC Distribution Width SD 37.1 fl (35.1-43.9); Red Blood Count 4.37 M/mm3 (4.6-6.2); White Blood Count 4.7 K/mm3 (4.4-11.0)
[2021-01-25 17:50] LABS: Bedside Glucose 246 mg/dL (70-110)
--- NOTE | 2021-01-25 17:53 | RAD_ITS ---
STUDY: X-RAY CHEST REASON FOR EXAM: Male, 30 years old. chest pain TECHNIQUE: AP portable COMPARISON: 10/26/2019 FINDINGS: The lungs are clear and expanded. There is no demonstrated pleural abnormality. Normal size heart. Normal mediastinum and maria luisa. Normal visualized pulmonary arteries. Normal visualized aortic arch and descending thoracic aorta. Normal visualized thoracic spine. Normal visualized ribs, clavicles, and shoulders. There is no demonstrated abnormality of the visualized soft tissue structures of the upper abdomen. No significant change since prior exam RAD/Chest 1 View (Portable) IMPRESSION: Normal x-ray examination of the chest. Electronically Signed: Nick Crowe MD at 18:27 EDT , Service support ,
--- NOTE | 2021-01-25 18:07 | EX.ED.DYSGE1 ---
HPI History of Present Illness Chief Complaint: Hyperglycemia Informant: patient Narrative Narrative: Patient is a 30-year-old male with history of type 1 diabetes mellitus presenting with hyperglycemia. Patient states for the past few days his blood sugars been bouncing anywhere between 53 and a high reading. He states about 30 minutes prior to arrival he checked his blood sugar and it was read high. He gives of 12 units of insulin. He notes his vision has been a little bit blurry and he has been feeling well last few days. He had what he thought was allergies with nasal congestion and some nausea. Has also been feeling dizzy. He denies any fever or chills. He did have vomiting 3 to 4 days ago but that is since resolved. Denies any abdominal pain. Denies any black or blood in his stool. Has had decreased bowel movements. Has had increased urination and increased thirst. Patient states he gets intermittent chest pain lasting between seconds and minutes for a while that has not changed significantly. He does not wear an insulin pump. 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 Helton. No other acute complaints at this time. Denies any sick contacts. Is not had his Covid vaccine. [facility] Medical History (Updated 01/25/21 @ 19:[address] Mariam Pierson, DO) Anxiety and depression Arthritis Diabetes type 1, controlled Headache, migraine Vision problems Home Medications glucagon (human recombinant) 1 mg IM ONCE PRN 11/04/18 [History Last Taken Unknown] acetaminophen 650 mg tablet,extended release 650 mg PO Q12H 08/11/20 [History Last Taken Unknown] cholecalciferol (vitamin D3) 1,250 mcg (50,000 unit) capsule 1,250 mcg PO QWEEK #4 cap 08/11/20 [Rx Last Taken Unknown] clobetasol 0.05 % topical ointment 1 applic TOPICAL DAILY #15 g 08/11/20 [Rx Last Taken Unknown] flash glucose scanning reader #1 ea 08/18/20 [Rx Last Taken Unknown] flash glucose sensor #2 ea 08/18/20 [Rx Last Taken Unknown] omeprazole 40 mg capsule,delayed release 40 mg PO DAILY #90 cap 12/01/20 [Rx Last Taken Unknown] vortioxetine 10 mg tablet 10 mg PO DAILY #90 tablet 12/08/20 [Rx Last Taken Unknown] insulin aspart U-100 100 unit/mL (3 mL) subcutaneous pen 10 unit SC TIDCM #15 ml 01/22/21 [Rx Last Taken Unknown] insulin detemir U-100 24 unit SC DAILY 01/25/21 [History Last Taken Unknown] Allergy/AdvReac Type Severity Reaction Status Date / Time No Known Allergies Allergy Verified 01/25/21 17:07 Family History Grandfather Myocardial infarction COPD (chronic obstructive pulmonary disease) Brother Depression suicide attempt Uncle Diabetes Father Diabetes Aunt Diabetes Surgical History trigger finger surgery Social History Smoking Status: Current some day smoker tobacco type: cigarettes Tobacco: How many years used: 13 second hand exposure: No alcohol intake: never substance use type: marijuana what type of physical activity do you participate in: none and walking frequency: daily ROS ROS ED Constitutional Constitutional ED: Denies chills or fever(s) Eyes Eyes: Reports blurry vision; Denies change in vision ENT ENT ED: Reports other Details: nasal congestion ; Denies ear pain, rhinorrhea or sore throat Cardiovascular Cardiovascular: Reports chest pain; Denies palpitations Respiratory/Chest Respiratory/Chest: Denies cough or dyspnea Gastrointestinal Gastrointestinal: Reports nausea and vomiting; Denies abdominal pain, constipation or diarrhea Genitourinary Genitourinary ED: Reports urinary frequency; Denies dysuria or hematuria Musculoskeletal Musculoskeletal: Reports arthralgias; Denies myalgias Integumentary Denies rash Neurologic Neurologic: Reports weakness; Denies headache(s) Psychiatric Psychiatric: Denies anxiety or depression Endocrine Endocrinology: Reports polydipsia and polyuria EXAM Physical Exam Const Vital Signs: 01/25/21 17:07 01/25/21 17:41 01/25/21 18:37 Temperature 98.6 F Temperature Source Temporal Pulse Rate 85 59 L Respiratory Rate 16 13 Respiratory Effort Normal Non-Labored Respiratory Pattern Normal Blood Pressure 131/82 H 111/82 H Blood Pressure Mean 98 91 Pulse Ox 98 98 Oxygen Delivery Method Room Air Room Air 01/25/21 19:17 Temperature Temperature Source Pulse Rate 79 Respiratory Rate 13 Respiratory Effort Respiratory Pattern Blood Pressure 110/80 Blood Pressure Mean Pulse Ox 100 Oxygen Delivery Method Positive well nourished and well developed General Appearance ED: well developed HEENT Reports dry mucous membranes HEENT Narrative: Poor dentition throughout Negative for tenderness Mouth ED: Yes dry mucous membranes Mouth: dry mucous membranes Eyes Negative for PERRL or EOMs intact bilaterally Neck supple Chest Wall inspection of chest normal Resp normal respiratory effort and clear to auscultation bilaterally Cardio regular rate, regular rhythm and no murmurs GI normal to inspection, nondistended, normoactive bowel sounds Extremity normal to inspection General Extremety ED: Negative for edema or tenderness General Extremity: Negative for edema Neuro oriented x3 and CN's II-XII intact bilaterally Sensorium / Orientation: alert Psych mental status grossly normal Skin no rashes or lesions noted MDM MDM MDM Narrative Medical decision making narrative: Patient is evaluated for concern of hyperglycemia. He appears nontoxic in no acute distress. He is hemodynamically stable. Patient's glucose is elevated but not significantly as his glucose is 228. He has a normal anion gap of 12. He does not have any acetone in his blood. There is no obvious source of infection to explain his labile blood sugars. Patient has a normal high sensory troponin and I do not think there is an underlying cardiac process. Patient is counseled to follow-up with his bevel gear generator operator for further management of his blood sugars. He is counseled that this time he does not require admission. He is agreeable to splenic care. He has complained of arthritis and swelling of his fingers intermittently. This been going on for some time. He is counseled to follow-up with his PCP as he might need further evaluation for possible rheumatoid arthritis or other cause of his joint pain. Patient is given a dose of Tylenol in the emergency room. Lab Data Attestation: I reviewed the patient's lab results. Labs: Laboratory Results - last 24 hr 01/25/21 01/25/21 01/25/21 17:33 17:39 17:39 WBC 4.7 RBC 4.37 L Hgb 13.6 Hct 38.9 L MCV 89.0 MCH 31.1 MCHC 35.0 RDW Std Deviation 37.1 RDW Coeff of Nathaniel 11.6 Plt Count 250 MPV 9.4 Immature Gran % (Auto) 0.200 Neut % (Auto) 65.3 Lymph % (Auto) 22.3 [place] % (Auto) 8.6 Eos % (Auto) 3.0 Baso % (Auto) 0.6 Absolute Neuts (auto) 3.0 Absolute Lymphs (auto) 1.04 Nucleated RBC % 0 Sodium 140 Potassium 3.3 L Chloride 105 Carbon Dioxide 23.0 Anion Gap 12 BUN 14 Creatinine 1.14 Estim Creat Clear Calc 81.77 Est GFR (MDRD) Af Amer 95 Est GFR (MDRD) Non-Af 79 BUN/Creatinine Ratio 12.3 Glucose 228 H Calcium 9.0 Magnesium 1.4 L Total Bilirubin 1.00 AST 29 ALT 25 Alkaline Phosphatase 129 H Troponin I High Sens 3.9 Total Protein 7.2 Albumin 3.7 Globulin 3.5 Albumin/Globulin Ratio 1.1 Urine Color Urine Clarity Urine pH Ur Specific [place] Urine Protein Urine Glucose (UA) Urine Ketones Urine Occult Blood Urine Nitrite Urine Bilirubin Urine Urobilinogen Ur Leukocyte Esterase Urine RBC Urine WBC Ur Squamous Epith Cells Urine Bacteria Urine Mucus Acetone Level POC Glucose 246 H 01/25/21 01/25/21 17:39 18:47 WBC RBC Hgb Hct MCV MCH MCHC RDW Std Deviation RDW Coeff of Nathaniel Plt Count MPV Immature Gran % (Auto) Neut % (Auto) Lymph % (Auto) [place] % (Auto) Eos % (Auto) Baso % (Auto) Absolute Neuts (auto) Absolute Lymphs (auto) Nucleated RBC % Sodium Potassium Chloride Carbon Dioxide Anion Gap BUN Creatinine Estim Creat Clear Calc Est GFR (MDRD) Af Amer Est GFR (MDRD) Non-Af BUN/Creatinine Ratio Glucose Calcium Magnesium Total Bilirubin AST ALT Alkaline Phosphatase Troponin I High Sens Total Protein Albumin Globulin Albumin/Globulin Ratio Urine Color Yellow Urine Clarity Clear Urine pH 6.0 Ur Specific [place] 1.010 Urine Protein Negative Urine Glucose (UA) 1000 H Urine Ketones Negative Urine Occult Blood Negative Urine Nitrite Negative Urine Bilirubin Negative Urine Urobilinogen Normal Ur Leukocyte Esterase Negative Urine RBC 0 SEEN Urine WBC 0 SEEN Ur Squamous Epith Cells 0 SEEN Urine Bacteria 0 SEEN Urine Mucus 0 SEEN Acetone Level NEGATIVE POC Glucose Radiography Diagnostic Testing: Radiology Impression Chest X-Ray 01/25/21 17:53 IMPRESSION: Normal x-ray examination of the chest. Electronically Signed: Nick Crowe MD at 18:27 EDT , Service support , Rhythm Strip Rhythm Strip: Sinus Rhythm Rate: 70 Ectopy: None EKG Initial EKG: Attestation: I personally reviewed and interpreted this EKG as follows: Interpretation: Sinus Rhythm Comments: Normal sinus rhythm rate of 70 Normal axis Normal intervals Normal ST segments Discharge Plan Triage Chief Complaint: Hyperglycemia ED Provider: Mariam Pierson Dx/Rx/DC Orders Clinical Impression: Hyperglycemia due to type 1 diabetes mellitus, Diabetes mellitus type I, Hand joint pain Instructions: ED Arthralgia, ED Diabetic Hyperglycemia Prescriptions: No Action clobetasol 0.05 % ointment 1 applic TOPICAL DAILY Qty: 15 RF: 0 (DME) FreeStyle Cel[place] 2 [place] Misc See Rx Instructions .ROUTE .MEDSUPPLY Qty: 1 RF: 0 (DME) FreeStyle Celena 2 Sensor Kit See Rx Instructions .ROUTE .MEDSUPPLY Qty: 2 RF: 8 acetaminophen [Tylenol Arthritis Pain] 650 mg tablet extended release 650 mg PO Q12H RF: 0 vortioxetine 10 mg tablet 10 mg PO DAILY Qty: 90 RF: 1 glucagon (human recombinant) 1 MG recon soln 1 mg IM ONCE PRN (Reason: Hypoglycemia) RF: 0 insulin detemir U-100 100 unit/mL (3 mL) insulin pen 24 unit SC DAILY RF: 0 cholecalciferol (vitamin D3) 1,250 mcg (50,000 unit) capsule 1,250 mcg PO QWEEK Qty: 4 RF: 6 omeprazole 40 mg capsule,delayed release(DR/EC) 40 mg PO DAILY Qty: 90 RF: 2 insulin aspart U-100 100 unit/mL (3 mL) insulin pen 10 unit SC TIDCM Qty: 15 RF: 1 Primary Care Provider: Alexandre Katz Referrals: Alexandre Katz MD [Primary Care Provider] - Activity Restrictions/Additional Instructions: Please follow-up with your primary care doctor for further evaluation of this hand pain. Ask your doctor if a work-up for any type of autoimmune arthritis would be indicated. Please follow-up with your bevel gear generator operator. Your work-up here does not show findings consistent with diabetic ketoacidosis or infection and you are safe to go home. Disposition Disposition: Home, Self Care Discharge Date/Time: 01/25/21 19:22
[2021-01-25 18:15] LABS: ALB/GLOB Ratio 1.1 RATIO (0.9-2.4); AST(SGOT) 29 U/L (15-37); Alanine Aminotransfer ALT/SGPT 25 U/L (16-61); Albumin, Serum 3.7 g/dL (3.2-5.0); Alkaline Phosphatase 129 U/L (45-117); Anion Gap 12 (5-15); BUN 14 mg/dL (7-18); BUN/Creat Ratio 12.3 RATIO (10-20); Chloride 105 mmol/L (98-107); Creatinine, Serum 1.14 mg/dL (0.70-1.30); EST Glomerular Filtration Rate 79 mL/min (>60); Est Glom Filt Rate - Afr Amer 95 mL/min (>60); Estimated Creatinine Clearance 81.77 ml/min; Globulin 3.5 g/dL (2.2-4.2); Glucose 228 mg/dL (74-106); Magnesium 1.4 mg/dL (1.6-2.6); Potassium 3.3 mmol/L (3.5-5.1); Protein, Total 7.2 g/dL (6.4-8.2); Sodium Level 140 mmol/L (136-145); Troponin-I HS 3.9 pg/mL (3.0-78.5)
[2021-01-25 18:37] VITALS: BP 111/82; PULSE 59; RESP 13; O2SAT 98
[2021-01-25 18:58] LABS: Bacteria 0 SEEN /hpf (None Seen); Mucous, Urine 0 SEEN /hpf (<or=2+); Red Blood Cells-Urine 0 SEEN /hpf (0-5); Squamous Epithelial Cells - UA 0 SEEN /hpf (0-5); White Blood Cells 0 SEEN /hpf (0-5)
[2021-01-25 18:59] LABS: Color, Urine Yellow (Yellow); Glucose, Dipstick 1000 mg/dl (Normal); Ketone-Dipstick Negative (Negative); Leukocyte Esterase-Dipstick Negative /ul (Negative); Nitrite-Dipstick Negative (Negative); Occult Blood-Urine Negative /ul (Negative); Protein-Dipstick Negative (Negative); Urine Bilirubin Dipstick Negative (Negative); Urine Clarity Clear (Clear); Urine Urobilinogen Normal (Normal)
[2021-01-25] MEDS: Acetaminophen 325 MG Tablet 650 MG PO (18:59)
[2021-01-25 19:17] VITALS: BP 110/80; PULSE 79; RESP 13; O2SAT 100
== END 2021-01-25 19:22 | disposition home or self-care (01) ==
PROVIDERS: Emergency Provider Emergency Medicine; PCP Internal Medicine
DX: E10.65 Type 1 diabetes mellitus with hyperglycemia (principal); M25.549 Pain in joints of unspecified hand; R11.2 Nausea with vomiting, unspecified; R07.9 Chest pain, unspecified; M19.90 Unspecified osteoarthritis, unspecified site; F32.9 Major depressive disorder, single episode, unspecified; F41.9 Anxiety disorder, unspecified; F17.210 Nicotine dependence, cigarettes, uncomplicated; Z79.4 Long term (current) use of insulin; Z79.899 Other long term (current) drug therapy
CPT/HCPCS: 71045; 80053; 81001; 82009; 82962; 83735; 84484; 85025; 87426; 93005; 96360; 99285; J7030; A4216

== ENCOUNTER 2021-07-12 15:02 | Outpatient (CLI) | payer MEDICAID, SELFPAY ==
[2021-07-12 17:18] LABS: Anion Gap 5 (5-15); BUN 15 mg/dL (7-18); BUN/Creat Ratio 14.4 RATIO (10-20); Calcium,Total 9.3 mg/dL (8.5-10.1); Chloride 103 mmol/L (98-107); Creatinine, Serum 1.04 mg/dL (0.70-1.30); EST Glomerular Filtration Rate 87 mL/min (>60); Est Glom Filt Rate - Afr Amer 106 mL/min (>60); Glucose 216 mg/dL (74-106); Potassium 3.9 mmol/L (3.5-5.1); Sodium Level 138 mmol/L (136-145)
== END 2021-07-12 23:59 | disposition short-term general hospital (02) ==
LOC: BIMLAB 15:03
PROVIDERS: PCP Internal Medicine; Referring Provider Internal Medicine; Visit Provider Internal Medicine
DX: F41.8 Other specified anxiety disorders (principal)
CPT/HCPCS: 36415; 80048

== ENCOUNTER → 2022-06-27 | Outpatient (CLI) | payer MEDICAID, SELFPAY ==
[2022-06-27 16:59] LABS: Absolute Lymphocyte Count 1.67 X10^3/uL (0.83-4.51); Absolute Neutrophil Count 6.2 X10^3/uL (2.0-7.7); Basophil# 0.06 X10^3/uL; Basophil% 0.7 % (0-1); Eosinophil# 0.13 X10^3/uL; Eosinophils% 1.4 % (0-5); Hematocrit 46.5 % (40-54); Hemoglobin 16.2 g/dL (13.0-16.5); Lymphocyte # 1.67 X10^3/ul (0.83-4.51); Lymphocyte % 18.6 % (19-41); Mean Corp Hgb Conc 34.8 g/dL (32-36); Mean Corpuscular Volume 91.9 fL (80-94); Mean Platelet Vol. 10.1 fl (6.2-12.0); Monocyte# 0.89 X10^3/uL; Monocyte% 9.9 % (0-10); NRBC Flagged by Analyzer 0 % (0-5); Neutrophil # 6.22 X10^3/uL (2.7-7.7); Neutrophil % 69.1 % (47-70); Platelet Count 367 K/mm3 (150-450); RBC Distribution Width CV 12.5 % (11.6-14.6); Red Blood Count 5.06 M/mm3 (4.6-6.2)
[2022-06-27 19:06] LABS: ALB/GLOB Ratio 1.1 RATIO (0.9-2.4); AST(SGOT) 15 U/L (15-37); Alanine Aminotransfer ALT/SGPT 18 U/L (16-61); Albumin, Serum 4.1 g/dL (3.2-5.0); Alkaline Phosphatase 175 U/L (45-117); Anion Gap 8 (5-15); BUN 22 mg/dL (7-18); BUN/Creat Ratio 17.7 RATIO (10-20); Chloride 90 mmol/L (98-107); Creatinine, Serum 1.24 mg/dL (0.70-1.30); EST Glomerular Filtration Rate 71 mL/min (>60); Est Glom Filt Rate - Afr Amer 86 mL/min (>60); Globulin 3.7 g/dL (2.2-4.2); Glucose 592 mg/dL (74-106); Protein, Total 7.8 g/dL (6.4-8.2); Sodium Level 129 mmol/L (136-145)
== END | disposition home or self-care (01) ==
PROVIDERS: PCP Internal Medicine; Referring Provider Internal Medicine; Visit Provider Internal Medicine
DX: E10.9 Type 1 diabetes mellitus without complications (principal); R05.9 Cough, unspecified; Z20.822 Contact with and (suspected) exposure to COVID-19
CPT/HCPCS: 87635; 36415; 80053; 85025; U0003; U0005

== ENCOUNTER → 2022-07-29 | Outpatient (CLI) | payer MEDICAID, SELFPAY ==
[2022-07-29 16:34] LABS: Erythrocyte Sedimentation Rate 7 mm/hr (0-20)
[2022-07-29 16:46] LABS: Rheumatoid Factor < 10.0 IU/mL (<15)
[2022-07-31 18:48] LABS: ANTINUCLEAR ANTIBODIES DIRECT Negative (Negative)
== END | disposition home or self-care (01) ==
PROVIDERS: PCP Internal Medicine; Referring Provider Internal Medicine; Visit Provider Internal Medicine
DX: M19.90 Unspecified osteoarthritis, unspecified site (principal)
CPT/HCPCS: 86235; 86225; 36415; 85652; 86038; 86140; 86431

== ENCOUNTER → 2022-11-13 | Outpatient (CLI) | payer MEDICAID, SELFPAY ==
[2022-11-13 16:41] LABS: Absolute Lymphocyte Count 1.64 X10^3/uL (0.83-4.51); Absolute Neutrophil Count 3.8 X10^3/uL (2.0-7.7); Basophil# 0.06 X10^3/uL; Eosinophil# 0.24 X10^3/uL; Eosinophils% 3.8 % (0-5); Hematocrit 41.7 % (40-54); Hemoglobin 14.6 g/dL (13.0-16.5); Lymphocyte # 1.64 X10^3/ul (0.83-4.51); Mean Corpuscular Hgb 31.7 pg (27.0-32.0); Mean Corpuscular Volume 90.5 fL (80-94); Mean Platelet Vol. 9.5 fl (6.2-12.0); Monocyte# 0.52 X10^3/uL; Monocyte% 8.3 % (0-10); NRBC Flagged by Analyzer 0 % (0-5); Neutrophil # 3.82 X10^3/uL (2.7-7.7); Neutrophil % 60.6 % (47-70); Platelet Count 370 K/mm3 (150-450); RBC Distribution Width CV 12.2 % (11.6-14.6); RBC Distribution Width SD 40.3 fl (35.1-43.9); Red Blood Count 4.61 M/mm3 (4.6-6.2); White Blood Count 6.3 K/mm3 (4.4-11.0)
[2022-11-13 16:49] LABS: ALB/GLOB Ratio 0.9 RATIO (0.9-2.4); AST(SGOT) 20 U/L (15-37); Alanine Aminotransfer ALT/SGPT 18 U/L (16-61); Albumin, Serum 3.7 g/dL (3.2-5.0); Alkaline Phosphatase 157 U/L (45-117); Anion Gap 8 (5-15); BUN 12 mg/dL (7-18); BUN/Creat Ratio 10.4 RATIO (10-20); Calcium,Total 9.6 mg/dL (8.5-10.1); Chloride 105 mmol/L (98-107); Creatinine, Serum 1.15 mg/dL (0.70-1.30); EST Glomerular Filtration Rate 77 mL/min (>60); Est Glom Filt Rate - Afr Amer 93 mL/min (>60); Globulin 3.9 g/dL (2.2-4.2); Glucose 258 mg/dL (74-106); Potassium 4.7 mmol/L (3.5-5.1); Protein, Total 7.6 g/dL (6.4-8.2); Sodium Level 139 mmol/L (136-145)
[2022-11-13 16:57] LABS: Microalbumin,Random Urine 9.5 mg/L (NO RANGE EST.); Microalbumin:Creatinine Ratio 15.2 mg/g CRE (<30 mg/g CRE)
== END | disposition home or self-care (01) ==
LOC: BIMLAB 15:44
PROVIDERS: PCP Internal Medicine; Referring Provider Internal Medicine; Visit Provider Internal Medicine
DX: F41.8 Other specified anxiety disorders (principal); E10.9 Type 1 diabetes mellitus without complications
CPT/HCPCS: 36415; 80053; 82043; 82570; 85025

== ENCOUNTER 2023-07-08 07:29 | Inpatient (IN) | payer MEDICAID, SELFPAY ==
[2023-07-08] VITALS (19 sets, daily range): BP systolic 94–141; BP diastolic 55–99; PULSE 91–152; RESP 11–30; TEMP 35.1–37.2; O2SAT 73–100; BMI 18.8; BMI 187818.5
--- NOTE | 2023-07-08 07:37 | EKG12_ITS ---
Test Reason : SYNCOPE Blood Pressure : / mmHG Vent. Rate : 146 BPM Atrial Rate : 146 BPM P-R Int : 114 ms QRS Dur : 066 ms QT Int : 334 ms P-R-T Axes : 084 070 086 degrees QTc Int : 520 ms Critical Test Result: High HR Sinus tachycardia Right atrial enlargement Nonspecific ST and T wave abnormality Abnormal ECG Confirmed by JOSE RAFAEL CHAPMAN, AGUSTO ([id number]), supervising film or videotape editor SHIRA FITCH ([id number]) on 07/09/2023 9:24:01 AM Referred By: SATINDER Confirmed By:AGUTSO MANTILLA MD
--- NOTE | 2023-07-08 07:38 | EX.ED.DYSGE1 ---
HPI History of Present Illness Chief Complaint: Syncope Narrative Narrative: 33-year-old male has been sick for 3 to 4 days. Family states they have all have a mild cough but he has been sicker. He admits to nausea, vomiting. Patient states he thought he might of just come down with a cold and the family all states they are not very sick. Patient has not had a fever at home but did admit to body aches and chills. His sugars have been okay per his family. Patient has been giving himself insulin and Lantus. Family states has been able to hold down some fluids but not any food. He is making urine. Other than his history of diabetes type 1 he states he has a history of gastric ulcer. He states has been having some black emesis over the last few days. Patient admits to feeling lightheaded and fainting a few times at home. Concerned this could be due to hydration. [facility] Medical History Anxiety and depression Arthritis Elevated blood pressure reading without diagnosis of hypertension Gastroenteritis Headache Headache, migraine Major depression with psychotic features Pain and numbness of upper extremity Type 1 diabetes mellitus Vision problems Home Medications glucagon (human recombinant) 1 mg solution for injection 1 mg IM ONCE PRN HYPOGLYCEMIA 11/04/18 [History Last Taken Unknown] flash glucose scanning reader ([employer] Video Celena 2 [place]) #1 ea 08/18/20 [Rx Last Taken Unknown] omeprazole 40 mg capsule,delayed release 40 mg PO DAILY ACID REFLUX #90 caps 12/01/20 [Rx Last Taken Unknown] nortriptyline 25 mg capsule 25 mg PO QHS DEPRESSION #30 caps 10/10/21 [Rx Last Taken Unknown] clobetasol 0.05 % topical ointment 1 applic topical DAILY ITCHING/REDNESS #15 grams 11/02/21 [Rx Last Taken Unknown] vortioxetine 10 mg tablet 10 mg PO DAILY DEPRESSION #90 tabs 04/26/22 [Rx Last Taken Unknown] cariprazine 1.5 mg capsule (Vraylar) 1.5 mg PO DAILY DEPRESSION #30 caps 07/01/22 [Rx Last Taken Unknown] cholecalciferol (vitamin D3) 1,250 mcg (50,000 unit) capsule 1,250 mcg PO QWEEK SUPPLEMENT #12 caps 12/30/22 [Rx Last Taken Unknown] flash glucose sensor (FreeStyle Celena 2 Sensor kit) #2 ea 02/19/23 [Rx Last Taken Unknown] insulin aspart U-100 100 unit/mL (3 mL) subcutaneous pen (Novolog FlexPen U-100 Insulin aspart) 12 unit subcut TIDCM DIABETES 07/08/23 [History Last Taken 07/08/23] Allergy/AdvReac Type Severity Reaction Status Date / Time No Known Allergies Allergy Verified 12/30/22 13:08 Family History Grandfather Myocardial infarction COPD (chronic obstructive pulmonary disease) Brother Depression suicide attempt Uncle Diabetes Father Diabetes Aunt Diabetes Surgical History trigger finger surgery Social History Smoking Status: Current some day smoker tobacco type: cigarettes Tobacco: How many years used: 13 second hand exposure: No alcohol intake: never substance use type: marijuana what type of physical activity do you participate in: walking, running and weight training frequency: 3-4 times per week ROS ROS ED Constitutional Constitutional ED: Denies chills, fever(s) or sweats Eyes Eyes: Denies blurry vision or change in vision ENT ENT ED: Denies ear pain or sore throat Cardiovascular Cardiovascular: Denies chest pain, palpitations or racing heartbeat Respiratory/Chest Respiratory/Chest: Reports cough and dyspnea; Denies sputum Gastrointestinal Gastrointestinal: Reports nausea, vomiting and other Details: Dark emesis. No black or bloody stools. ; Denies abdominal pain, constipation or diarrhea Genitourinary Genitourinary ED: Denies dysuria, hematuria or urinary frequency Musculoskeletal Musculoskeletal: Denies arthralgias, myalgias or neck pain Integumentary Denies abscess, Abrasions or rash Neurologic Neurologic: Reports headache(s); Denies paresthesias or weakness Psychiatric Psychiatric: Denies anxiety, depression, suicidal ideation or suicidal thoughts Endocrine Endocrinology: Denies polydipsia or polyuria EXAM Physical Exam Const Vital Signs: 07/08/23 07:29 07/08/23 07:37 07/08/23 08:29 Temperature 95.2 F L Temperature Source Temporal Pulse Rate 152 H 118 H Respiratory Rate 30 H 16 Respiratory Effort Normal Short of Breath Blood Pressure 94/55 L 125/81 H Blood Pressure Mean 68 95 Pulse Ox 96 98 Oxygen Delivery Method Room Air Room Air 07/08/23 09:00 07/08/23 10:00 Temperature Temperature Source Pulse Rate 110 H 105 H Respiratory Rate 16 16 Respiratory Effort Blood Pressure 129/64 H 110/74 Blood Pressure Mean 85 86 Pulse Ox 98 98 Oxygen Delivery Method Room Air Room Air Positive unkempt General Appearance ED: unkempt; Negative for pallor HEENT Reports dry mucous membranes Mouth ED: Yes dry mucous membranes Mouth: dry mucous membranes Eyes PERRL and EOMs intact bilaterally Neck no lymphadenopathy Chest Wall inspection of chest normal Resp normal respiratory effort and clear to auscultation bilaterally Auscultation: Negative for rales or rhonchi Cardio regular rhythm Rate: tachycardic GI normal to inspection, nondistended, normoactive bowel sounds Extremity General Extremety ED: Negative for edema or tenderness General Extremity: Negative for edema Neuro oriented x3 and CN's II-XII intact bilaterally Sensorium / Orientation: alert Psych mental status grossly normal Appearance: unkempt Skin no wounds General Skin Exam: Negative for jaundice or pallor MDM MDM MDM Narrative Medical decision making narrative: 33-year-old male presenting with nausea, vomiting, lightheadedness and syncope for the last few days. He is progressively getting more dehydrated. He reports has been able to hold on some fluids but no food. Patient with history of type 1 diabetes. He still taking his insulin and Lantus at home. Differential includes DKA, HHNK, dehydration, anemia, electrolyte normalities, peptic ulcer disease, GERD, COVID, influenza, pneumonia, UTI. IV was established. Patient given Zofran and a Protonix bolus. Patient also given 2 L of normal saline. CBC was obtained to assess white blood cell count, hemoglobin, platelets. CMP to assess liver function, renal function, electrolytes, glucose, anion gap. High-sensitivity troponin and EKG to assess for ischemia/dysrhythmia. POC glucose showed a glucose of 213. Chest x-ray to rule out pneumonia. COVID, influenza, RSV will be obtained. CBC shows leukocytosis of 19.4. Hemoglobin 17.0 and likely hemoconcentrated. Platelets 581 also hemoconcentrated most likely. Creatinine elevated at 3.61 today which is well above the patient's baseline of 1.15. Patient does have anion gap at 23. Glucose 212. Has moderate acetone. On reevaluation patient is doing well. His vital signs have normalized. Chest x-ray was obtained and shows no acute process on my interpretation. We are still waiting to obtain a UA. COVID, influenza, RSV were all negative. Discussed with the hospitalist for admission. I do not believe he needs an insulin drip at this time but will need hydration. Impression: 1. Hyperglycemia 2. Elevated anion gap 3. Leukocytosis 4. Nausea/vomiting 5. Acute kidney injury Lab Data Attestation: I reviewed the patient's lab results. Labs: Laboratory Results - last 24 hr 07/08/23 07/08/23 07:45 07:53 WBC 19.4 H RBC 5.37 Hgb 17.0 H Hct 49.2 MCV 91.6 MCH 31.7 MCHC 34.6 RDW Std Deviation 43.4 RDW Coeff of Nathaniel 13.1 Plt Count 581 H MPV 9.4 Immature Gran % (Auto) 0.500 Neut % (Auto) 79.6 H Lymph % (Auto) 9.0 L [place] % (Auto) 10.3 H Eos % (Auto) 0.0 Baso % (Auto) 0.6 Absolute Neuts (auto) 15.5 H Absolute Lymphs (auto) 1.75 Nucleated RBC % 0 Differential Comment SCANNED Diff Path Review October foll Sodium 141 Potassium 3.8 Chloride 97 L Carbon Dioxide 21.0 Anion Gap 23 H BUN 36 H Creatinine 3.61 H Estim Creat Clear Calc 21.98 Est GFR (MDRD) Af Amer 25 L Est GFR (MDRD) Non-Af 21 L BUN/Creatinine Ratio 10.0 Glucose 212 H Calcium 11.5 H Magnesium 2.3 Total Bilirubin 1.60 H AST 26 ALT 24 Alkaline Phosphatase 235 H Troponin I High Sens 5 Total Protein 9.5 H Albumin 4.7 Globulin 4.8 H Albumin/Globulin Ratio 1.0 Acetone Level MODERATE H POC Glucose 213 H ABG Data ABG results: ABG 07/08/23 08:44 Specimen Type AMADO Sample Site Not entered O2 % 21.0 VBG pH 7.46 H VBG pO2 98 H VBG HCO3 20 L VBG Total CO2 21 L VBG O2 Sat (Calc) 98 H VBG Base Excess -4 L POC Mix VBG pCO2 Pt Tmp 27.4 L O2 Delivery Device Not entered Radiography Diagnostic Testing: Clinical Impression(s) from Imaging Studies Chest X-Ray 07/08/23 08:34 IMPRESSION: Normal x-ray examination of the chest. Electronically Signed: Crow Cui MD at 9:02 EST , Discharge Plan Triage Chief Complaint: Syncope ED Provider: Kaleb Davies Dx/Rx/DC Orders Prescriptions: No Action (DME) FreeStyle Celena 2 [place] Misc See Rx Instructions .ROUTE .MEDSUPPLY Qty: 1 0RF Rx Instructions: As directed vortioxetine 10 mg tablet 10 mg PO DAILY Qty: 90 2RF cholecalciferol (vitamin D3) 1,250 mcg (50,000 unit) capsule 1,250 mcg PO QWEEK Qty: 12 3RF glucagon (human recombinant) 1 MG recon soln 1 mg IM ONCE PRN (Reason: HYPOGLYCEMIA ) insulin aspart U-100 [Novolog FlexPen U-100 Insulin] 100 unit/mL (3 mL) insulin pen 12 unit subcut TIDCM omeprazole 40 mg capsule,delayed release(DR/EC) 40 mg PO DAILY Qty: 90 2RF nortriptyline 25 mg capsule 25 mg PO QHS Qty: 30 2RF clobetasol 0.05 % ointment 1 applic TOPICAL DAILY Qty: 15 0RF Vraylar 1.5 mg capsule 1.5 mg PO DAILY Qty: 30 1RF (DME) FreeStyle Celena 2 Sensor Kit See Rx Instructions .ROUTE .MEDSUPPLY Qty: 2 8RF Rx Instructions: 1 sensor q 14 days insulin aspart U-100 100 unit/mL (3 mL) insulin pen 12 unit subcut TID Qty: 15 0RF Primary Care Provider: Alexandre Katz Referrals: Alexandre Katz MD [Primary Care Provider] - [employer] Marketing Representative Reflex Medical hold order details:: IF a medical hold is selected below, a suggested order for a MEDICAL HOLD will reflex upon signing the document. Next of kin: [place] law dictates a PRIORITY LIST for identifying legal decision-maker/legal next of kin in the following order (LNOK): 1st: The patient?s legal guardian, if any 2nd: The patient's spouse (if status is questionable, consult Risk Management) 3rd: The patient?s adult child(faustino) (majority, if multiple children) 4th: The patient?s parents 5th: The patient?s adult siblings (majority, if multiple children siblings)
[2023-07-08] MEDS: 0.9% Normal Saline (1000mL) 1,000 ML 999 ML IV ×3 (07:50→09:53)
[2023-07-08 08:01] LABS: Absolute Lymphocyte Count 1.75 X10^3/uL (0.83-4.51); Absolute Neutrophil Count 15.5 X10^3/uL (2.0-7.7); Basophil# 0.12 X10^3/uL; Basophil% 0.6 % (0-1); Hematocrit 49.2 % (40-54); Lymphocyte # 1.75 X10^3/ul (0.83-4.51); Mean Corp Hgb Conc 34.6 g/dL (32-36); Mean Corpuscular Hgb 31.7 pg (27.0-32.0); Mean Corpuscular Volume 91.6 fL (80-94); Mean Platelet Vol. 9.4 fl (6.2-12.0); Monocyte# 2.01 X10^3/uL; Monocyte% 10.3 % (0-10); NRBC Flagged by Analyzer 0 % (0-5); Neutrophil # 15.47 X10^3/uL (2.7-7.7); Neutrophil % 79.6 % (47-70); POSITIVE DIFFERENTIAL YES; Platelet Count 581 K/mm3 (150-450); RBC Distribution Width CV 13.1 % (11.6-14.6); RBC Distribution Width SD 43.4 fl (35.1-43.9); Red Blood Count 5.37 M/mm3 (4.6-6.2); White Blood Count 19.4 K/mm3 (4.4-11.0)
[2023-07-08 08:03] LABS: Bedside Glucose 213 mg/dL (74-106)
[2023-07-08 08:17] LABS: Differential Indicated SCAN CRITERIA MET
[2023-07-08 08:18] LABS: AST(SGOT) 26 U/L (15-37); Alanine Aminotransfer ALT/SGPT 24 U/L (16-61); Albumin, Serum 4.7 g/dL (3.2-5.0); Alkaline Phosphatase 235 U/L (45-117); Anion Gap 23 (5-15); BUN 36 mg/dL (7-18); Calcium,Total 11.5 mg/dL (8.5-10.1); Chloride 97 mmol/L (98-107); Creatinine, Serum 3.61 mg/dL (0.70-1.30); EST Glomerular Filtration Rate 21 mL/min (>60); Est Glom Filt Rate - Afr Amer 25 mL/min (>60); Estimated Creatinine Clearance 21.98 ml/min; Globulin 4.8 g/dL (2.2-4.2); Glucose 212 mg/dL (74-106); Magnesium 2.3 mg/dL (1.6-2.6); Potassium 3.8 mmol/L (3.5-5.1); Protein, Total 9.5 g/dL (6.4-8.2); Sodium Level 141 mmol/L (136-145); Troponin-I HS 5 pg/mL (3.0-78.0)
--- NOTE | 2023-07-08 08:34 | RAD_ITS ---
STUDY: X-RAY CHEST REASON FOR EXAM: Male, 33 years old. Weakness. Syncopal episodes. TECHNIQUE: Single AP portable view of the chest. COMPARISON: None. FINDINGS: EKG electrodes are seen. The lungs are clear and expanded. There is no demonstrated pleural abnormality. Normal size heart. Normal mediastinum and maria luisa. Normal visualized pulmonary arteries. Normal visualized aortic arch and descending thoracic aorta. Normal visualized thoracic spine. Normal visualized ribs, clavicles, and shoulders. There is no demonstrated abnormality of the visualized soft tissue structures of the upper abdomen. RAD/Chest 1 View (Portable) IMPRESSION: Normal x-ray examination of the chest. Electronically Signed: Crow Cui MD at 9:02 EST ,
[2023-07-08] MEDS: Ondansetron 4 MG/2 ML Vial IV ×3 (08:36→19:45)
[2023-07-08 08:48] LABS: Blood Gas Specimen Type VEN; O2 Delivery Device Not entered; SITE Not entered; VBG BASE EXCESS -4 mmol/L (-1.0-3.5); VBG Bicarbonate 20 mmol/L (22-26); VBG PO2 98 mmHg (25-40); VBG SO2 98 % (50-70); VBG TCO2 21 mmol/L (23-33); VBG pCO2 27.4 mmHg (41-51); VBG pH 7.46 (7.32-7.42)
[2023-07-08 08:50] LABS: Differential Comment SCANNED
[2023-07-08] MEDS: Pantoprazole Sodium 40 MG in 0.9% Normal Saline (100mL MB+) 100 ML 330 MG IV (08:59)
--- NOTE | 2023-07-08 10:28 | NURSING ---
[facility] [place], HYPERGLYCEMIA
[2023-07-08 10:38] LABS: Bedside Glucose 291 mg/dL (74-106)
--- OUTSIDE RECORDS SUMMARY | 2023-07-08 11:34 | XMS RPT_ITS | CCD ---
Author Name Unknown Address [address] [place] [address] Organization [facility] Care Team Providers Care Injection Molding Machine Operator Name Role Phone Bella VILLEGAS, Daily Sexton Unavailable [phone] Melania Nuñez LPN Unavailable Unavailable Joaquin LUCERO, Melania Terry Unavailable Unavailable JOE MCKEON Unavailable Unavailable JOE MCKEON Unavailable Unavailable ALEXANDRE HUNT Unavailable Unavailable MCMORROW, TREVER Unavailable Unavailable RAGBEVNATJITENDRA, SAL Unavailable Unavailable Yobani Nuñez LPNia L Unavailable Unavailable Renea Krishna L Unavailable Melania Nuñez LPN L Unavailable Unavailable Yobani Nuñez LPNia L Unavailable Unavailable Alexandre Hunt MD Primary Care Provider [phone] ALEXANDRE HUNT Primary Care Unavailable SAMMIE DAWN Attending Unavailable Medications Completed/Discontinued Medications Medication Drug Class(es) Dates Sig (Normalized) Sig (Original) acetaminophen 325 mg oral tablet (1 source) take 2 tablets by mouth every six hours as needed acetaminophen (TYLENOL) 325 mg tablet Take 650 mg by mouth every 6 hours as needed. 0 Active Problems Active Problems Problem Classification Problem Date Documented Date Episodic/Chronic Adjustment disorders (1 source) Adjustment disorder with depressed mood; Translations: [Adjustment disorder with depressed mood] Onset: 01-28-2006 01-28-2006 Chronic Anxiety disorders (1 source) Moderate anxiety; Translations: [Anxiety disorder, unspecified] Onset: 03-28-2016 03-28-2016 Chronic Attention-deficit, conduct, and disruptive behavior disorders (1 source) Attention deficit hyperactivity disorder; Translations: [Attention-deficit hyperactivity disorder, unspecified type] 08-25-2015 Chronic Attention-deficit, conduct, and disruptive behavior disorders (1 source) Attention-deficit hyperactivity disorder, unspecified type; Translations: [Attention deficit disorder with hyperactivity] Onset: 01-04-2016 01-04-2016 Chronic Diabetes mellitus without complication (10 sources) Type 1 diabetes mellitus; Translations: [Type 1 diabetes mellitus without complications] Onset: 12-23-2015 08-01-2016 Chronic Esophageal disorders (1 source) Gastroesophageal reflux disease; Translations: [Gastro-esophageal reflux disease without esophagitis] Onset: 04-29-2016 04-29-2016 Chronic Headache, including migraine (9 sources) Migraine; Translations: [Migraine with aura] Onset: 01-28-2006 08-01-2016 Chronic Mood disorders (1 source) Severe recurrent major depression without psychotic features; Translations: [Major depressive disorder, recurrent severe without psychotic features] Onset: 03-28-2016 03-28-2016 Chronic Nutritional deficiencies (1 source) Vitamin D deficiency; Translations: [Vitamin D deficiency, unspecified] Onset: 10-15-2016 10-15-2016 Chronic Other upper respiratory infections (1 source) Acute upper respiratory infection; Translations: [Acute upper respiratory infection, unspecified] 05-23-2023 Episodic Substance-related disorders (1 source) Cannabis abuse; Translations: [Cannabis abuse, uncomplicated] Onset: 03-28-2016 03-28-2016 Chronic Past or Other Problems Problem Classification Problem Date Documented Da te Episodic/Chronic Gastritis and duodenitis (1 source) Acute gastritis; Translations: [Acute gastritis without bleeding] Onset: 05-06-2007 05-06-2007 Episodic Other connective tissue disease (1 source) Triggering of digit; Translations: [Trigger finger, right ring finger] Onset: 09-28-2015 09-28-2015 Episodic Results Test Name Value Interpretation Reference Range Facil ity Vital Signs Date Time Vital Sign Value Performing Clinician Facility 05-23-2023 17:40-0500 Body temperature 97.5 [degF] Sammie Dawn APRN.CNP Work Phone: [facility] 05-23-2023 17:40-0500 Body weight 58.24 kg Sammie Dawn APRN.CNP Work Phone: [facility] 05-23-2023 17:40-0500 Diastolic blood pressure 62 mm[Hg] Sammie Dawn APRN.CNP Work Phone: [facility] 05-23-2023 17:40-0500 Heart rate 102 /min Sammie Dawn APRN.REPORTER ANCHOR Work Phone: [facility] 05-23-2023 17:40-0500 Respiratory rate 16 /min Sammie Dawn APRN.REPORTER ANCHOR Work Phone: [facility] 05-23-2023 17:40-0500 SaO2% (BldA) [Mass fraction] 98 % Sammie Dawn APRN.REPORTER ANCHOR Work Phone: [facility] 05-23-2023 17:40-0500 Systolic blood pressure 106 mm[Hg] Sammie Dawn APRN.REPORTER ANCHOR Work Phone: [facility] 04-24-2017 10:04-0400 BMI (Body Mass Index) 20.56 kg/m2 [facility] Work Phone: 04-24-2017 10:04-0400 Body Temperature 98.3 [degF] Melania Nuñez LPN [facility] Work Phone: 04-24-2017 10:04-0400 BP Diastolic 76 mm[Hg] [facility] Work Phone: 04-24-2017 10:04-0400 BP Systolic 111 mm[Hg] [facility] Work Phone: 04-24-2017 10:04-0400 Height 167.64 cm Melania Nuñez LPN [facility] Work Phone: 04-24-2017 10:04-0400 Pulse (Heart Rate) 82 /min [facility] Work Phone: 04-24-2017 10:04-0400 Respiratory Rate 18 /min [facility] Work Phone: 04-24-2017 10:04-0400 Weight 57.79 kg Melania Joaquin GENERAL OPHTHALMOLOGIST [facility] Work Phone: 04-08-2017 08:51-0400 BMI (Body Mass Index) 21.37 kg/m2 Melania Nuñez LPN [facility] Work Phone: 04-08-2017 08:51-0400 BP Diastolic 64 mm[Hg] Melania Nuñez LPN [facility] Work Phone: 04-08-2017 08:51-0400 BP Systolic 100 mm[Hg] Melania Nuñez LPN [facility] Work Phone: 04-08-2017 08:51-0400 Height 167.64 cm Melania Nuñez LPN [facility] Work Phone: 04-08-2017 08:51-0400 Pulse (Heart Rate) 88 /min Melania Nuñez LPN [facility] Work Phone: 04-08-2017 08:51-0400 Respiratory Rate 20 /min Melania Nuñez LPN [facility] Work Phone: 04-08-2017 08:51-0400 Weight 60.06 kg Melania Nuñez LPN [facility] Work Phone: 01-16-2017 08:22-0400 BMI (Body Mass Index) 21.5 kg/m2 Melania Nuñez LPN [facility] Work Phone: 01-16-2017 08:22-0400 Body Temperature 96.5 [degF] Melania Nuñez LPN [facility] Work Phone: 01-16-2017 08:22-0400 BP Diastolic 70 mm[Hg] Melania Nuñez LPN [facility] Work Phone: 01-16-2017 08:22-0400 BP Systolic 108 mm[Hg] Melania Nuñez LPN [facility] Work Phone: 01-16-2017 08:22-0400 Height 167.64 cm Melania Nuñez LPN [facility] Work Phone: 01-16-2017 08:22-0400 Pulse (Heart Rate) 73 /min Melania Joaquin LUCERO [facility] Work Phone: 01-16-2017 08:22-0400 Respiratory Rate 18 /min Melania Joaquin LUCERO [facility] Work Phone: 01-16-2017 08:22-0400 Weight 60.42 kg Melania Joaquin LUCERO [facility] Work Phone: 10-17-2016 13:29-0400 BMI (Body Mass Index) 21.4 kg/m2 Daily Blanco NP [facility] Work Phone: 10-17-2016 13:29-0400 BP Diastolic 69 mm[Hg] Daily Bella VILLEGAS [facility] Work Phone: 10-17-2016 13:29-0400 BP Systolic 112 mm[Hg] Daily Shocarolee CONCRETE SPREADER [facility] Work Phone: 10-17-2016 13:29-0400 Height 167.64 cm Daily Shocarolee VILLEGAS [facility] Work Phone: 10-17-2016 13:29-0400 Pulse (Heart Rate) 73 /min Daily Haneycarolee VILLEGAS [facility] Work Phone: 10-17-2016 13:29-0400 Pulse Oximetry 97 % Daily Shocarolee VILLEGAS [facility] Work Phone: 10-17-2016 13:29-0400 Respiratory Rate 16 /min Daily Shocarolee VILLEGAS [facility] Work Phone: 10-17-2016 13:29-0400 Weight 60.15 kg Daily Haneycarolee CONCRETE SPREADER [facility] Work Phone: 08-01-2016 08:49-0500 BSA (Body Surface Area) 1.68 m2 Daily Blanco NP [facility] Work Phone: Encounters Encounter Date Encounter Type Care Provider Facility Start: 05-23-2023 End: 05-23-2023 ambulatory LAEXANDRE HUNT Facility:[facility] Start: 05-23-2023 End: 05-23-2023 Patient encounter procedure Sammie Dawn APRN.CNP Work Phone: [facility] Procedures Date Procedure Procedure Detail Performing Clinician Start: 05-08-2016 Colonoscopy Sammie Dawn APRN.REPORTER ANCHOR Work Phone: Plan of Treatment Date Care Activity Detail Author Start: 05-08-[address] [facility] Start: 05-08-2026 Colorectal Cancer Screening Colorectal Cancer Screening [facility] Start: 02-21-2023 Influenza vaccination Influenza Vaccine (#1) [facility] Start: 01-09-2018 3 comp foot exam completed Diabetic Foot Exam [facility] Start: 01-09-2018 Pneumococcal vaccination Pneumococcal Vaccine (2 - PCV) [facility] Start: 10-10-2017 Hepatitis B screening Urine Albumin:Creatinine Ratio [facility] Start: 10-10-2017 Hepatitis B surface antibody level LDL Cholesterol [facility] Start: 07-24-2017 End: 07-24-2017 Appointment Appointment [facility] Work Phone: Start: 07-08-2017 End: 07-08-2017 Appointment Appointment [facility] Work Phone: Start: 04-24-2017 End: 04-24-2017 *CMP Complete Metabolic Panel *CMP Complete Metabolic Panel [facility] Work Phone: Start: 04-24-2017 End: 04-24-2017 *Microalbumin, Creatine Ratio, rand urine *Microalbumin, Creatine Ratio, rand urine [facility] Work Phone: Start: 04-24-2017 End: 04-24-2017 Hemoglobin A1c/Hemoglobin.total mass fraction (Bld) *HgA1C [facility] Work Phone: Start: 04-24-2017 End: 04-24-2017 Appointment Appointment [facility] Work Phone: Start: 04-08-2017 End: 04-08-2017 Appointment Appointment [facility] Work Phone: Start: 01-16-2017 End: 01-19-2017 *CMP Complete Metabolic Panel *CMP Complete Metabolic Panel [facility] Work Phone: Start: 01-16-2017 End: 01-19-2017 *Microalbumin, Creatine Ratio, rand urine *Microalbumin, Creatine Ratio, rand urine [facility] Work Phone: Start: 01-16-2017 End: 01-19-2017 Hemoglobin A1c/Hemoglobin.total mass fraction (Bld) *HgA1C [facility] Work Phone: Start: 01-16-2017 End: 01-19-2017 Lipid panel [AGGREGATE] *Lipid Profile [facility] Work Phone: Start: 01-16-2017 End: 01-16-2017 Appointment Appointment [facility] Work Phone: Start: 01-16-2017 End: 01-16-2017 Appointment Appointment [facility] Work Phone: Start: 01-16-2017 End: 01-19-2017 *CMP Complete Metabolic Panel *CMP Complete Metabolic Panel [facility] Work Phone: Start: 01-16-2017 End: 01-19-2017 *Microalbumin, Creatine Ratio, rand urine *Microalbumin, Creatine Ratio, rand urine [facility] Work Phone: Start: 01-16-2017 End: 01-19-2017 Hemoglobin A1c/Hemoglobin.total mass fraction (Bld) *HgA1C [facility] Work Phone: Start: 01-16-2017 End: 01-19-2017 Lipid 1996 panel *Lipid Profile [facility] Work Phone: Start: 01-09-2017 Hemoglobin A1c/Hemoglobin.total in Blood HbA1C [facility] Start: 08-01-2016 End: 08-02-2016 *CMP Complete Metabolic Panel *CMP Complete Metabolic Panel [facility] Work Phone: Start: 08-01-2016 End: 08-02-2016 *Microalbumin, Creatine Ratio, rand urine *Microalbumin, Creatine Ratio, rand urine [facility] Work Phone: Start: 08-01-2016 End: 08-02-2016 Hemoglobin A1c/Hemoglobin.total mass fraction (Bld) *HgA1C [facility] Work Phone: Start: 08-01-2016 End: 08-02-2016 Lipid panel [AGGREGATE] *Lipid Profile [facility] Work Phone: Start: 08-01-2016 End: 08-02-2016 Thyroid stimulating hormone (TSH) *TSH [facility] Work Phone: Start: 08-01-2016 End: 08-02-2016 *CMP Complete Metabolic Panel *CMP Complete Metabolic Panel [facility] Work Phone: Start: 08-01-2016 End: 08-02-2016 *Microalbumin, Creatine Ratio, rand urine *Microalbumin, Creatine Ratio, rand urine [facility] Work Phone: Start: 08-01-2016 End: 08-02-2016 HbA1c *HgA1C [facility] Work Phone: Start: 08-01-2016 End: 08-02-2016 Lipid panel [AGGREGATE] *Lipid Profile [facility] Work Phone: Start: 08-01-2016 End: 08-02-2016 Thyroid stimulating hormone (TSH) *TSH [facility] Work Phone: Start: 02-21-2016 Hepatitis C antibody, confirmatory test Dilated Retinal Exam [facility] Start: 2007 Urine microalbumin profile DTaP,Tdap,Td Vaccine (1 - Tdap) [facility] Start: 2006 Annual PCP Team Chronic Disease Visit Annual PCP Team Chronic Disease Visit [facility] Start: 2006 Hepatitis C Screening Hepatitis C Screening [facility] Start: 2006 HIV Screening HIV Screening [facility] Start: 05-06-2001 Hepatitis B Vaccine (3 of 3 - 3-dose series) Hepatitis B Vaccine (3 of 3 - 3-dose series) [facility] Start: 1988 Covid-19 Vaccine (#1) Covid-19 Vaccine (#1) [facility] Immunizations Immunization Date Immunization Notes Care Provider Fa madelyn 01-09-2017 pneumococcal polysaccharide vaccine, 23 valent Sammie Dawn APRN.REPORTER ANCHOR Work Phone: [facility] 07-11-2016 influenza virus vacc ine, unspecified formulation Sammie Dawn APRN.REPORTER ANCHOR Work Phone: [facility] 05-06-2007 influenza virus vacc ine, unspecified formulation Sammie Dawn APRN.REPORTER ANCHOR Work Phone: [facility] Work Phone: Payers Date Payer Category Payer Unknown [id number] 1990 Unknown [id number] Social History Date Type Detail Facility Start: 05-23-2023 Tobacco smoking stat [facility] Smokes tobacco daily [facility] History of tobacco use Cigarette Smoker [facility] Start: 05-23-2023 Cigarettes smoked cu rrent (pack per day) - Reported 0.5 [facility] Start: 05-23-2023 Tobacco use and exposure Smoke less tobacco non-user [facility] Start: 05-23-2023 Alcohol intake Current non-dr manager contact of alcohol (finding) [facility] Start: 05-23-2023 [facility] use [facility] Start: 05-23-2023 Tobacco Comment as of 12/2015 s mokes [address] [facility] Start: 1990 Sex Assigned At Not on file [facility] Medical Equipment Procedure Code Equipment Code Equipment Origin al Text Equipment Identifier Dates Test blood sugar 4-5 times daily. Dx: diabetes type 1. Insulin: Yes Start: 08-24-2015 Progress note 05-23-2023 Note Date & Type Note Facility 05-23-2023 Note HNO ID: [id number] Author: Sammie Dawn APRN.JACKI Service: ? Author Type: Nurse Practitioner Type: Progress Notes Filed: 05/23/2023 5:59 PM Note Text: CC: Patient presents with: Cough: Fever, vomiting, fatigue and leg pain x 3 days HPI: Fox Marquez is a 33 year old male who presents to the office with complaint of cough, nonproductive and fever for a few days. Symptoms are improving Associated symptoms includes headache and body aches. Denies nausea, vomiting , and diarrhea. Treatments tried include nothing so far. with no relief of symptoms. Sick contacts: unknown. History of asthma, frequent episodes of bronchitis, chronic bronchitis, bronchiectasis or COPD: No Smoker: No Seasonal/environmental allergies: No The ROS is otherwise negative. The patient's pmh, medications, allergies, and past visits are reviewed. PHYSICAL EXAM: BP 106/62 Pulse 102 Temp 36.4 ?C (97.5 ?F) Resp 16 Wt 58.2 kg (128 lb 6.4 oz) SpO2 98% BMI 20.72 kg/m? General appearance: alert, cooperative, pleasant, in no acute distress Head: Normocephalic Eyes: EOM's intact, conjunctiva pink and moist, no icterus, sclera white, non-injected Heart: Negative. RRR without obvious murmur, gallop, or rubs. No ectopy. Lungs: clear to auscultation, without rales or wheeze, good air exchange Abdomen: soft non tender PAST MEDICAL HISTORY Diagnosis Date Altered mental status Anxiety and depression Attention deficit disorder with hyperactivity(314.01) Gastritis GERD (gastroesophageal reflux disease) Heart attack (HCC) states at age 19-no damage Hemorrhoids Panic attacks PUD (peptic ulcer disease) Snoring Syncope states in past 11/2015 Type I (juvenile type) diabetes mellitus without mention of complication, not stated as uncontrolled (HCC) PAST SURGICAL HISTORY Procedure Laterality Date COLONOSCOPY 05/08/2016 Hemorrhoids, Gastritis. EGD 05/08/2016 Normal PAST SURGICAL HISTORY OF Right 2016 trigger finger ALLERGIES Patient has no known allergies. MEDICATIONS citalopram (CELEXA) 20 mg tablet Take 1 tablet by mouth once daily. INSULIN GLARGINE,HUM.REC.ANLOG (BASAGLAR KWIKPEN SUBCUTANEOUS) Inject 30 Units subcutaneously daily before breakfast. cholecalciferol, Vitamin D3, (VITAMIN D3) 50,000 unit cap capsule Take 1 capsule by mouth once each week. metoclopramide HCl (REGLAN) 10 mg tablet Take 1 tablet by mouth before meals and at bedtime. 30min before meals. Omeprazole 40 mg capsule take 1 capsule by mouth once daily acetaminophen (TYLENOL) 325 mg tablet Take 650 mg by mouth every 6 hours as needed. insulin aspart (NOVOLOG FLEXPEN) 100 unit/mL inpn Take 8-10 units each meal blood sugar diagnostic (FREESTYLE LITE STRIPS) test strip Test blood sugar 4-5 times daily. Dx: diabetes type 1. Insulin: Yes FAMILY HISTORY Problem Relation Age of Onset Heart Father Stroke Father Diabetes Father other (Sleep Apnea) Brother other (HTN) Brother COPD Other Heart Attack Other Social History Tobacco Use Smoking status: Every Day Packs/day: 0.50 Years: 13.00 Additional pack years: 0.00 Total pack years: 6.50 Types: Cigarettes Smokeless tobacco: Never Tobacco comments: as of 12/2015 smokes 10 cigarettes a day Substance Use Topics Alcohol use: No Drug use: Yes Frequency: 2.0 times per week Types: Marijuana Comment: marijuana use ASSESSMENT/PLAN: 1. URI, acute - ICD9: 465.9, ICD10: J06.9 No viral testing at this time. OTC meds for symptoms. Potential red flag symptoms discussed with the patient. Reviewed appropriate action plan to take if red flag symptoms occur. Patient agreeable to treatment plan. Sammie Dawn APRN.[facility] History of Present illness Narrative 05-23-2023 Sammie Dawn APRN.[facility] - 05/23/2023 5:51 PM EST Note Date & Type Note Facility 05-23-2023 History of Presen t illness Narrative CC: Patient presents with: Cough: Fever, vomiting, fatigue and leg pain x 3 days HPI: Fox Marquez is a 33 year old male who presents to the office with complaint of cough, nonproductive and fever for a few days. Symptoms are improving Associated symptoms includes headache and body aches. Denies nausea, vomiting , and diarrhea. Treatments tried include nothing so far. with no relief of symptoms. Sick contacts: unknown. History of asthma, frequent episodes of bronchitis, chronic bronchitis, bronchiectasis or COPD: No Smoker: No Seasonal/environmental allergies: No The ROS is otherwise negative. The patient's pmh, medications, allergies, and past visits are reviewed. PHYSICAL EXAM: BP 106/62 Pulse 102 Temp 36.4 C (97.5 F) Resp 16 Wt 58.2 kg (128 lb 6.4 oz) SpO2 98% BMI 20.72 kg/m General appearance: alert, cooperative, pleasant, in no acute distress Head: Normocephalic Eyes: EOM's intact, conjunctiva pink and moist, no icterus, sclera white, non-injected Heart: Negative. RRR without obvious murmur, gallop, or rubs. No ectopy. Lungs: clear to auscultation, without rales or wheeze, good air exchange Abdomen: soft non tender PAST MEDICAL HISTORY Diagnosis Date Altered mental status Anxiety and depression Attention deficit disorder with hyperactivity(314.01) Gastritis GERD (gastroesophageal reflux disease) Heart attack (HCC) states at age 19-no damage Hemorrhoids Panic attacks PUD (peptic ulcer disease) Snoring Syncope states in past 11/2015 Type I (juvenile type) diabetes mellitus without mention of complication, not stated as uncontrolled (HCC) PAST SURGICAL HISTORY Procedure Laterality Date COLONOSCOPY 05/08/2016 Hemorrhoids, Gastritis. EGD 05/08/2016 Normal PAST SURGICAL HISTORY OF Right 2016 trigger finger ALLERGIES Patient has no known allergies. MEDICATIONS citalopram (CELEXA) 20 mg tablet Take 1 tablet by mouth once daily. INSULIN GLARGINE,HUM.REC.ANLOG (BASAGLAR KWIKPEN SUBCUTANEOUS) Inject 30 Units subcutaneously daily before breakfast. cholecalciferol, Vitamin D3, (VITAMIN D3) 50,000 unit cap capsule Take 1 capsule by mouth once each week. metoclopramide HCl (REGLAN) 10 mg tablet Take 1 tablet by mouth before meals and at bedtime. 30min before meals. Omeprazole 40 mg capsule take 1 capsule by mouth once daily acetaminophen (TYLENOL) 325 mg tablet Take 650 mg by mouth every 6 hours as needed. insulin aspart (NOVOLOG FLEXPEN) 100 unit/mL inpn Take 8-10 units each meal blood sugar diagnostic (FREESTYLE LITE STRIPS) test strip Test blood sugar 4-5 times daily. Dx: diabetes type 1. Insulin: Yes FAMILY HISTORY Problem Relation Age of Onset Heart Father Stroke Father Diabetes Father other (Sleep Apnea) Brother other (HTN) Brother COPD Other Heart Attack Other Social History Tobacco Use Smoking status: Every Day Packs/day: 0.50 Years: 13.00 Additional pack years: 0.00 Total pack years: 6.50 Types: Cigarettes Smokeless tobacco: Never Tobacco comments: as of 12/2015 smokes 10 cigarettes a day Substance Use Topics Alcohol use: No Drug use: Yes Frequency: 2.0 times per week Types: Marijuana Comment: marijuana use ASSESSMENT/PLAN: 1. JAYESH acute - ICD9: 465.9, ICD10: J06.9 No viral testing at this time. OTC meds for symptoms. Potential red flag symptoms discussed with the patient. Reviewed appropriate action plan to take if red flag symptoms occur. Patient agreeable to treatment plan. Sammie Dawn APRN.REPORTER ANCHOR documented in this encounter [facility] Evaluation note Note Date & Type Note Facility documented in this encounter [facility] Summary Purpose Family History No Family History Records FoundNo Family History Records Found Advance Directives No Advanced Directives Records FoundNo Advanced Directives Records Found Additional Source Comments (unrecognized sect ion and content) No Status Records FoundNo Status Records Found INFORMATION SOURCE (unrecogn ized section and content) DATE CREATED AUTHOR AUTHOR'S ORGANIZ ATION 05/26/2023 [facility] Source Comments (unrecognize d section and content) In the event this informatio n is protected by the Federal Confidentiality of Alcohol and Drug Abuse Patient Records regulations: The Federal rules restrict any use of the information to criminally investigate or prosecute any alcohol or drug abuse patient.[facility] Reason for Visit (unrecogniz ed section and content) Care Teams (unrecognized sec tion and content) FOR RECORDS PERTAINING TO PATIENTS WHO ARE OR HAVE BEEN ENROLLED IN A CHEMICAL DEPENDENCY/SUBSTANCEABUSE PROGRAM, SOME INFORMATION MAY BE OMITTED. This clinical summary was aggregated from multiple sources. Caution should be exercised in using it in the provision of clinical care. This summary normalizes information from multiple sources, and as a consequence, information in this document may materially change the coding, format and clinical context of patient data. In addition, data may be omitted in some cases. CLINICAL DECISIONS SHOULD BE BASED ON THE PRIMARY CLINICAL RECORDS. [facility]. provides no warranty or guarantee of the accuracy or completeness of information in this document.
[2023-07-08 11:40] LABS: Procalcitonin 0.61 ng/mL (0.00-0.09)
[2023-07-08] MEDS: 0.9% Normal Saline (1000mL) 1,000 ML 200 ML IV (11:51)
[2023-07-08 12:00] LABS: Anion Gap 20 (5-15); BUN 32 mg/dL (7-18); BUN/Creat Ratio 13.7 RATIO (10-20); Calcium,Total 8.7 mg/dL (8.5-10.1); Chloride 108 mmol/L (98-107); Creatinine, Serum 2.33 mg/dL (0.70-1.30); EST Glomerular Filtration Rate 34 mL/min (>60); Est Glom Filt Rate - Afr Amer 41 mL/min (>60); Estimated Creatinine Clearance 34.05 ml/min; Glucose 371 mg/dL (74-106); Potassium 4.1 mmol/L (3.5-5.1); Sodium Level 146 mmol/L (136-145)
[2023-07-08] MEDS: Insulin Lispro 100 UNIT in 0.9% Normal Saline (100mL Bag) 99 ML 5.40000000000000036 UNIT CONT INF (12:26)
[2023-07-08 12:28] LABS: Lactic Acid 2.5 mmol/L (0.4-1.9)
--- NOTE | 2023-07-08 12:47 | HP.PCM.HOS_ITS ---
HPI - General General Date of Admission: 07/08/23 Date of Service: 07/08/23 Chief Complaint: Nausea, generally unwell HPI Narrative HANS GONZALEZ, is a 33M hx GERD, DMI, anxiety, tobacco use who presented to [facility] 07/08/2023 due to general malaise and nausea. He had been feeling unwell for about 3 to 4 days with poor p.o. intake and some blurry vision as well as some chills with no fever. Additionally has had little bit of nasal congestion and sore throat as well as nonproductive cough, has been having nausea and has been unable to keep anything down and given patient is generally not doing well he was brought to the emergency department. In the ED patient initially tachycardic with heart rate in 140s with blood pressure 94/55 respiratory rate of 30, found to be hemoconcentrated with white blood cell count of 19.4, hemoglobin 17, platelet count 581 and patient with BUN of 36 and creatinine of 3.61 up from baseline of around 1, his bicarb was normal but his anion gap was 23, blood glucose 212 and he had a VBG which showed a pH of 7.46, HCO3 of 20 and CO2 of 21 with moderate acetone. Hospitalist contacted for admission. Patient seen in ED with family member at bedside and history as above, reports just feeling generally unwell and being very thirsty but is nauseous and has a stuffy nose and sore throat with cough and bodyaches. Also reports he has had some blurry vision, denies changes in bowels, has not been urinating well but also has not been having good p.o. intake. Took insulin yesterday but had not taken yet today. [facility] Medical History Anxiety and depression Arthritis Elevated blood pressure reading without diagnosis of hypertension Gastroenteritis Headache Headache, migraine Major depression with psychotic features Pain and numbness of upper extremity Type 1 diabetes mellitus Vision problems Home Medications flash glucose scanning reader (FreeStyle Celena 2 [place]) #1 ea 08/18/20 [Rx Last Taken Unknown] flash glucose sensor (FreeStyle Celena 2 Sensor kit) #2 ea 02/19/23 [Rx Last Taken Unknown] insulin aspart U-100 100 unit/mL (3 mL) subcutaneous pen (Novolog FlexPen U-100 Insulin aspart) 12 unit subcut TIDCM DIABETES 07/08/23 [History Last Taken 07/08/23] Allergy/AdvReac Type Severity Reaction Status Date / Time No Known Allergies Allergy Verified 12/30/22 13:08 Family History Grandfather Myocardial infarction COPD (chronic obstructive pulmonary disease) Brother Depression suicide attempt Uncle Diabetes Father Diabetes Aunt Diabetes Surgical History trigger finger surgery Social History Smoking Status: Current some day smoker tobacco type: cigarettes Tobacco: How many years used: 13 second hand exposure: No alcohol intake: never substance use type: marijuana what type of physical activity do you participate in: walking, running and weight training frequency: 3-4 times per week ROS ROS Narrative General: Has been having chills HENT: Denies headache, has stuffy nose and sore throat EYES: Denies changes in vision Resp: Has had slight cough, denies shortness of breath Cardiac: Denies overt chest pain GI: Denies abdominal pain, denies changes in bowel, nausea and vomiting : Decreased urination Extremity: Denies swelling MSK: Feeling weak all over Neuro: Denies any numbness/tingling Heme: Denies any bleeding or bruising Skin: Denies rashes Psychiatric: No complaints voiced Vital Signs Vital Signs Vital Signs: 07/08/23 07:29 07/08/23 07:37 07/08/23 08:29 Temperature 95.2 F L Temperature Source Temporal Pulse Rate 152 H 118 H Respiratory Rate 30 H 16 Respiratory Effort Normal Short of Breath Blood Pressure 94/55 L 125/81 H Blood Pressure Mean 68 95 Blood Pressure Source Blood Pressure Position Blood Pressure Location Pulse Ox 96 98 Oxygen Delivery Method Room Air Room Air 07/08/23 09:00 07/08/23 10:00 07/08/23 11:00 Temperature Temperature Source Pulse Rate 110 H 105 H 106 H Respiratory Rate 16 16 16 Respiratory Effort Blood Pressure 129/64 H 110/74 116/64 Blood Pressure Mean 85 86 81 Blood Pressure Source Blood Pressure Position Blood Pressure Location Pulse Ox 98 98 98 Oxygen Delivery Method Room Air Room Air Room Air 07/08/23 11:50 Temperature 98 F Temperature Source Temporal Pulse Rate 104 H Respiratory Rate 12 Respiratory Effort Blood Pressure 120/81 H Blood Pressure Mean 94 Blood Pressure Source Monitor Blood Pressure Position Semi-Fowlers Blood Pressure Location Left Arm Pulse Ox 100 Oxygen Delivery Method Room Air Weight Weight: 54.4 kg Body Mass Index (BMI) 18.8 Physical Exam Narrative General: Patient with shakes, appears tired and not be feeling well HEENT: Atraumatic, normocephalic Eyes: Anicteric, normal conjunctiva, extraocular movements grossly intact Neck: Supple Respiratory: Clear to auscultation bilaterally, normal respiratory effort Cardiovascular: Mildly tachycardic GI: Soft, nontender, nondistended Extremities: No edema Musculoskeletal: Moving all extremities Neuro: No overt focal neurological deficits Skin: No rashes appreciated Psych: Cooperative Results Lab / Micro Data 07/08/23 07:53 07/08/23 15:55 Labs: Laboratory Results - last 24 hr 07/08/23 07:45: POC Glucose 213 H 07/08/23 07:53: WBC 19.4 H, RBC 5.37, Hgb 17.0 H, Hct 49.2, MCV 91.6, MCH 31.7, MCHC 34.6, RDW Std Deviation 43.4, RDW Coeff of Nathaniel 13.1, Plt Count 581 H, MPV 9.4, Immature Gran % (Auto) 0.500, Neut % (Auto) 79.6 H, Lymph % (Auto) 9.0 L, Hunt % (Auto) 10.3 H, Eos % (Auto) 0.0, Baso % (Auto) 0.6, Absolute Neuts (auto) 15.5 H, Absolute Lymphs (auto) 1.75, Nucleated RBC % 0, Differential Comment SC ANNED, Diff Path Review October foll, Sodium 141, Potassium 3.8, Chloride 97 L, C arbon Dioxide 21.0, Anion Gap 23 H, BUN 36 H, Creatinine 3.61 H, Estim Creat Clear Calc 21.98, Est GFR (MDRD) Af Amer 25 L, Est GFR (MDRD) Non-Af 21 L, BUN/Creatinine Ratio 10.0, Glucose 212 H, Calcium 11.5 H, Magnesium 2.3, Total Bilirubin 1.60 H, AST 26, ALT 24, Alkaline Phosphatase 235 H, Troponin I High Sens 5, Total Protein 9.5 H, Albumin 4.7, Globulin 4.8 H, Albumin/Globulin Ratio 1.0, Procalcitonin 0.61 H, Acetone Level MODERATE H 07/08/23 10:19: POC Glucose 291 H 07/08/23 11:25: Sodium 146 H, Potassium 4.1, Chloride 108 H, Carbon Dioxide 18.0 L, Anion Gap 20 H, BUN 32 H, Creatinine 2.33 H, Estim Creat Clear Calc 34.05, Est GFR (MDRD) Af Amer 41 L, Est GFR (MDRD) Non-Af 34 L, BUN/Creatinine Ratio 13.7, Glucose 371 H, Lactic Acid 2.5 H*, Calcium 8.7 Micro: Microbiology 07/08/23 08:30 Mucosa - Nasopharyngeal SARS-CoV-2, Influenza & RSV (PCR) - Final ABG Data ABG results: ABG 07/08/23 08:44 Specimen Type AMADO Sample Site Not entered O2 % 21.0 VBG pH 7.46 H VBG pO2 98 H VBG HCO3 20 L VBG Total CO2 21 L VBG O2 Sat (Calc) 98 H VBG Base Excess -4 L POC Mix VBG pCO2 Pt Tmp 27.4 L O2 Delivery Device Not entered Imagaing Radiology Impression Chest X-Ray 07/08/23 08:34 IMPRESSION: Normal x-ray examination of the chest. Electronically Signed: Crow Cui MD at 9:02 EST Reading Location ID and State: [address] [place] [address] , Service support , Assessment & Plan Assessment/Plan (1) Acute kidney injury: (2) Diabetes mellitus type I: QUALIFIERS: Diabetes mellitus complication status: with hyperglycemia Qualified Code(s): E10.65 - Type 1 diabetes mellitus with hyperglycemia (3) Lactic acidosis: PLAN: Plan #Acute kidney failure -Creatinine 3.61 with a baseline around 1, aggressively hydrate -Improving with fluids -Patient profoundly volume depleted, if does not continue to improve can further investigate however given all cell lines increased as well as clinical picture and nausea and vomiting with poor p.o. suspect that this is related to volume depletion #Hyperglycemia in setting of type I diabetes -Patient with confounding acid-base picture -Patient with glucose of 212, BUN elevated at 36, anion gap of 23 but had normal bicarb and pH slightly alkalotic -Did have moderate acetone and elevated anion gap however -Suspect patient had profound contraction alkalosis as well as respiratory compensation given his low CO2 resulting in elevated pH -After aggressive fluid resuscitation anion gap still elevated at 20 and bicarb 18, suspect that correcting contraction alkalosis was revealing metabolic acidosis but VBG not obtained at the time so cannot confirm -Do suspect there is a mild component of DKA confounding picture -Glucose did increase to 371 and given gap and acetone patient was started on insulin drip -Additionally patient having nausea and vomiting and poor p.o., will need to monitor closely -Monitor I's and O's -BMP every 4 hours -When serum glucose is <250 mg/dl, change IV fluids to D5%1/2NS at 150 ml/hr and continue insulin drip as per nomogram -Aggressive fluid hydration #Lactic acid elevation and leukocytosis -Patient with some vague complaints including cough, stuffy nose, sore throat -White blood cell count 19.4 with left shift on presentation green and patient profoundly volume depleted but has additional lactic acid elevation and slight elevation of Pro-Cem of 0.61 -Respiratory viral panel negative -Chest x-ray normal -Aggressively fluid resuscitate, given patient still with elevated heart rate, somewhat soft BP and increased lactic acid we will panculture and start on empiric antibiotics with plans to de-escalate if cultures negative but cannot rule out infection as cause or contributor at this time #DVT ppx: Heparin subcu Ninoska Welch MD Time spent in the patient's overall evaluation,decision-making process, review of diagnostic data, adjustment of management, discussion with other providers, nursing nursing and ancillary staff involved in patient's care documentation, 56Minutes Charges/Coding Visit Charges Inpatient E&M: 30376 Init Hosp L2
[2023-07-08 14:00] LABS: Bedside Glucose 285 mg/dL (74-106)
[2023-07-08] MEDS: Dext 5%-0.45% NS 1,000 ML 150 ML IV (14:50)
[2023-07-08 15:09] LABS: Bedside Glucose 175 mg/dL (74-106)
[2023-07-08 15:38] LABS: Reflex Lactate? Y
[2023-07-08 16:15] LABS: Bedside Glucose 182 mg/dL (74-106)
[2023-07-08 16:26] LABS: Anion Gap 11 (5-15); BUN 28 mg/dL (7-18); BUN/Creat Ratio 14.3 RATIO (10-20); Calcium,Total 8.4 mg/dL (8.5-10.1); Chloride 113 mmol/L (98-107); Creatinine, Serum 1.96 mg/dL (0.70-1.30); EST Glomerular Filtration Rate 42 mL/min (>60); Est Glom Filt Rate - Afr Amer 50 mL/min (>60); Estimated Creatinine Clearance 40.48 ml/min; Glucose 232 mg/dL (74-106); Potassium 3.9 mmol/L (3.5-5.1); Sodium Level 148 mmol/L (136-145)
[2023-07-08 16:58] LABS: Lactic Acid 3.7 mmol/L (0.4-1.9)
[2023-07-08 17:24] LABS: Bedside Glucose 246 mg/dL (74-106)
[2023-07-08 18:25] LABS: Bedside Glucose 191 mg/dL (74-106)
[2023-07-08 19:17] LABS: Bacteria 0 SEEN /hpf (None Seen); Mucous, Urine 0 SEEN /hpf (<or=2+); Squamous Epithelial Cells - UA 0 SEEN /hpf (0-5)
[2023-07-08 19:19] LABS: Color, Urine Yellow (Yellow); Glucose, Dipstick 1000 mg/dl (Normal); Leukocyte Esterase-Dipstick 25 /ul (Negative); Nitrite-Dipstick Negative (Negative); Occult Blood-Urine 250 /ul (Negative); Protein-Dipstick 30 mg/dl (Negative); Urine Bilirubin Dipstick Negative (Negative); Urine Clarity Clear (Clear); Urine Urobilinogen Normal (Normal)
[2023-07-08 19:19] LABS: Bedside Glucose 145 mg/dL (74-106)
[2023-07-08 19:27] LABS: Ketone-Dipstick 150 mg/dl (Negative)
[2023-07-08 19:28] LABS: Amphetamine Urine VISTA NEGATIVE (<1000 ng/mL); Barbiturate Urine VISTA NEGATIVE (< 200 ng/mL); Benzodiazepine Urine VISTA NEGATIVE (< 200 ng/mL); Cocaine Urine VISTA POSITIVE (< 300 ng/mL); Ecstacy Urine VISTA NEGATIVE (< 500 ng/mL); Methadone Urine VISTA NEGATIVE (< 300 ng/mL); PCP Urine VISTA NEGATIVE (< 25 ng/mL); THC Urine VISTA NEGATIVE (< 50 ng/mL); Vista UDS pH Range 5
[2023-07-08] MEDS: Piperacil/Tazobactam 4.5 GM in 0.9% Normal Saline (100mL MB+) 100 ML IV (19:40)
[2023-07-08] MEDS: 0.9% Saline Lock 10 ML Syringe IV ×2 (19:45→21:08)
[2023-07-08 20:14] LABS: Fine Granular Cast- Urine 0-5 SEEN /lpf (0-5); Hyaline Cast 0-5 SEEN /lpf (0-5); Red Blood Cells-Urine 0-5 SEEN /hpf (0-5); White Blood Cells 0-5 SEEN /hpf (0-5)
[2023-07-08 20:15] LABS: Calcium Oxalate Crystals Ur 1+ /hpf (<or=2+)
[2023-07-08 20:42] LABS: Anion Gap 12 (5-15); BUN 22 mg/dL (7-18); BUN/Creat Ratio 13.3 RATIO (10-20); Calcium,Total 8.2 mg/dL (8.5-10.1); Chloride 116 mmol/L (98-107); Creatinine, Serum 1.66 mg/dL (0.70-1.30); EST Glomerular Filtration Rate 50 mL/min (>60); Est Glom Filt Rate - Afr Amer 61 mL/min (>60); Estimated Creatinine Clearance 47.79 ml/min; Glucose 132 mg/dL (74-106); Potassium 3.2 mmol/L (3.5-5.1); Sodium Level 150 mmol/L (136-145)
[2023-07-08] MEDS: Heparin Injection (Vial) 5,000 UNIT/ML VIAL 5000 UNIT SC (21:08)
[2023-07-08] MEDS: KCL 20MEQ in D5.45NS 20 MEQ/1,000 ML IV.SOLN. 150 MEQ IV (21:20)
[2023-07-08 21:29] LABS: Bedside Glucose 122 mg/dL (74-106)
[2023-07-08 21:29] LABS: Bedside Glucose 96 mg/dL (74-106)
[2023-07-08 22:19] LABS: Bedside Glucose 97 mg/dL (74-106)
[2023-07-08] MEDS: Dextrose 50%-Water 25 GM/50 ML DISP.SYRIN IV (23:06)
[2023-07-08 23:19] LABS: Bedside Glucose 65 mg/dL (74-106)
[2023-07-08 23:45] LABS: Bedside Glucose 132 mg/dL (74-106)
[2023-07-09] VITALS (24 sets, daily range): BP systolic 110–141; BP diastolic 74–98; PULSE 62–109; RESP 9–22; TEMP 36.2–36.9; O2SAT 91–100; BMI 20.2
[2023-07-09 00:35] LABS: Anion Gap 7 (5-15); BUN 20 mg/dL (7-18); BUN/Creat Ratio 11.7 RATIO (10-20); Calcium,Total 8.1 mg/dL (8.5-10.1); Chloride 115 mmol/L (98-107); Creatinine, Serum 1.71 mg/dL (0.70-1.30); EST Glomerular Filtration Rate 49 mL/min (>60); Est Glom Filt Rate - Afr Amer 59 mL/min (>60); Estimated Creatinine Clearance 46.39 ml/min; Glucose 136 mg/dL (74-106); Potassium 3.4 mmol/L (3.5-5.1); Sodium Level 150 mmol/L (136-145)
[2023-07-09 00:45] LABS: Bedside Glucose 124 mg/dL (74-106)
[2023-07-09 01:44] LABS: Bedside Glucose 184 mg/dL (74-106)
[2023-07-09 02:38] LABS: Bedside Glucose 193 mg/dL (74-106)
[2023-07-09] MEDS: Ondansetron 4 MG/2 ML Vial IV ×3 (03:42→21:40)
[2023-07-09 03:48] LABS: Bedside Glucose 279 mg/dL (74-106)
[2023-07-09] MEDS: KCL 20MEQ in D5.45NS 20 MEQ/1,000 ML IV.SOLN. 150 MEQ IV ×3 (03:49→16:18)
[2023-07-09 03:57] LABS: Absolute Lymphocyte Count 1.22 X10^3/uL (0.83-4.51); Absolute Neutrophil Count 8.2 X10^3/uL (2.0-7.7); Basophil# 0.08 X10^3/uL; Eosinophil# 2.46 X10^3/uL; Hematocrit 37.3 % (40-54); Hemoglobin 12.4 g/dL (13.0-16.5); Lymphocyte # 1.22 X10^3/ul (0.83-4.51); Mean Corp Hgb Conc 33.2 g/dL (32-36); Mean Corpuscular Hgb 31.6 pg (27.0-32.0); Mean Corpuscular Volume 95.2 fL (80-94); Mean Platelet Vol. 9.2 fl (6.2-12.0); Monocyte# 1.19 X10^3/uL; NRBC Flagged by Analyzer 0 % (0-5); Neutrophil # 8.22 X10^3/uL (2.7-7.7); POSITIVE DIFFERENTIAL YES; POSITIVE MORPHOLOGY YES; Platelet Count 282 K/mm3 (150-450); RBC Distribution Width CV 13.3 % (11.6-14.6); RBC Distribution Width SD 46.5 fl (35.1-43.9); Red Blood Count 3.92 M/mm3 (4.6-6.2); White Blood Count 13.2 K/mm3 (4.4-11.0)
[2023-07-09 04:07] LABS: Differential Indicated SCAN CRITERIA MET
[2023-07-09 04:25] LABS: Anion Gap 10 (5-15); BUN 20 mg/dL (7-18); BUN/Creat Ratio 10.3 RATIO (10-20); Calcium,Total 7.9 mg/dL (8.5-10.1); Chloride 113 mmol/L (98-107); Creatinine, Serum 1.94 mg/dL (0.70-1.30); EST Glomerular Filtration Rate 42 mL/min (>60); Est Glom Filt Rate - Afr Amer 51 mL/min (>60); Estimated Creatinine Clearance 40.89 ml/min; Glucose 354 mg/dL (74-106); Potassium 3.9 mmol/L (3.5-5.1); Sodium Level 146 mmol/L (136-145); Thyroid Stim Hormone (TSH) 0.59 uIU/mL (0.358-3.74)
[2023-07-09 04:31] LABS: Eosinophil 6 % (0-5); Lymphocyte 9 % (19-41); Monocyte 10 % (0-10); Neutrophil-Segmented 75 % (47-70); Total Cells Counted 100 (MANUAL DIFF)
[2023-07-09 04:32] LABS: Scan Smear per Review Criteria MANUAL DIFF
[2023-07-09 04:33] LABS: Pathologist Review May foll; Poikilocytosis May foll
[2023-07-09 04:34] LABS: Red Cell Morphology N CHROM NORMAL (NORM C&C)
[2023-07-09 04:59] LABS: Bedside Glucose 292 mg/dL (74-106)
[2023-07-09] MEDS: Piperacil/Tazobactam 3.375 GM in 0.9% Normal Saline (50mL MB+) 50 ML IV ×3 (05:28→21:23)
[2023-07-09 05:48] LABS: Bedside Glucose 224 mg/dL (74-106)
--- NOTE | 2023-07-09 05:48 | NURSING ---
Pt did not void all shift, bladder scanned for >772 mL. Pt denies needing to go, encouraged to try. Pt assisted to bathroom and voided.
[2023-07-09 06:40] LABS: Bedside Glucose 177 mg/dL (74-106)
--- NOTE | 2023-07-09 06:45 | PCM.PN.HOSP ---
Reason for Visit Reason for Visit: Diagnoses Type 1 diabetes mellitus with hyperglycemia (07/08/23) Acidosis (07/08/23) Acute kidney failure, unspecified (07/08/23) Subjective Subjective Patient resting comfortably, reports still not feeling well overall, still having nausea and vomiting Objective Data Objective Data Vital Signs: Vital Signs Temp Pulse Resp BP Pulse Ox O2 Del Method O2 Flow Rate 97.3 F L 76 18 132/95 H 96 Room Air 2 07/09/23 04:37 07/09/23 06:00 07/09/23 06:00 07/09/23 06:00 07/09/23 06:00 07/09/23 06:00 07/08/23 22:00 Oxygen Flow Rate (L/min) 2 Oxygen Delivery Method Room Air Weight: 58.6 kg Body Mass Index (BMI) 20.2 Intake & Output: Intake and Output for Last 24 Hours 07/07/23 07/08/23 07/09/23 23:59 23:59 23:59 Intake Total 5005.96 / 5005.96 977.94 / 977.94 Output Total 100 / 100 Balance 5005.96 / 4905.96 877.94 / 877.94 Lab / Micro Data 07/09/23 03:48 07/09/23 07:00 Labs: Laboratory Results - last 24 hr 07/08/23 07:45: POC Glucose 213 H 07/08/23 07:53: WBC 19.4 H, RBC 5.37, Hgb 17.0 H, Hct 49.2, MCV 91.6, MCH 31.7, MCHC 34.6, RDW Std Deviation 43.4, RDW Coeff of Nathaniel 13.1, Plt Count 581 H, MPV 9.4, Immature Gran % (Auto) 0.500, Neut % (Auto) 79.6 H, Lymph % (Auto) 9.0 L, [place] % (Auto) 10.3 H, Eos % (Auto) 0.0, Baso % (Auto) 0.6, Absolute Neuts (auto) 15.5 H, Absolute Lymphs (auto) 1.75, Nucleated RBC % 0, Differential Comment SCANNED, Diff Path Review October, Sodium 141, Potassium 3.8, Chloride 97 L, Carbon Dioxide 21.0, Anion Gap 23 H, BUN 36 H, Creatinine 3.61 H, Estim Creat Clear Calc 21.98, Est GFR (MDRD) Af Amer 25 L, Est GFR (MDRD) Non-Af 21 L, BUN/Creatinine Ratio 10.0, Glucose 212 H, Calcium 11.5 H, Magnesium 2.3, Total Bilirubin 1.60 H, AST 26, ALT 24, Alkaline Phosphatase 235 H, Troponin I High Sens 5, Total Protein 9.5 H, Albumin 4.7, Globulin 4.8 H, Albumin/Globulin Ratio 1.0, Procalcitonin 0.61 H, Acetone Level MODERATE H 07/08/23 10:19: POC Glucose 291 H 07/08/23 11:25: Sodium 146 H, Potassium 4.1, Chloride 108 H, Carbon Dioxide 18.0 L, Anion Gap 20 H, BUN 32 H, Creatinine 2.33 H, Estim Creat Clear Calc 34.05, Est GFR (MDRD) Af Amer 41 L, Est GFR (MDRD) Non-Af 34 L, BUN/Creatinine Ratio 13.7, Glucose 371 H, Lactic Acid 2.5 H*, Calcium 8.7 07/08/23 13:40: POC Glucose 285 H 07/08/23 14:44: POC Glucose 175 H 07/08/23 15:52: POC Glucose 182 H 07/08/23 15:55: Sodium 148 H, Potassium 3.9, Chloride 113 H, Carbon Dioxide 24.0, Anion Gap 11, BUN 28 H, Creatinine 1.96 H, Estim Creat Clear Calc 40.48, Est GFR (MDRD) Af Amer 50 L, Est GFR (MDRD) Non-Af 42 L, BUN/Creatinine Ratio 14.3, Glucose 232 H, Lactic Acid 3.7 H*, Calcium 8.4 L 07/08/23 16:15: Urine Color Yellow, Urine Clarity Clear, Urine pH 5.0, Ur Specific [place] 1.020, Urine Protein 30 H, Urine Glucose (UA) 1000 H, Urine Ketones 150 A*, Urine Occult Blood 250 H, Urine Nitrite Negative, Urine Bilirubin Negative, Urine Urobilinogen Normal, Ur Leukocyte Esterase 25 H, Urine RBC 0-5 SEEN, Urine WBC 0-5 SEEN, Ur Squamous Epith Cells 0 SEEN, Calcium Oxalate Crystal 1+, Urine Bacteria 0 SEEN, Hyaline Casts 0-5 SEEN, Fine Granular Casts 0-5 SEEN, Urine Mucus 0 SEEN, Urine Opiates Screen NEGATIVE, Urine Methadone Screen NEGATIVE, Ur Barbiturates Screen NEGATIVE, Ur Phencyclidine Scrn NEGATIVE, Ur Amphetamines Screen NEGATIVE, MDMA (Ecstasy) Screen NEGATIVE, U Benzodiazepines Scrn NEGATIVE, Urine Cocaine Screen POSITIVE H, U Cannabinoids Screen NEGATIVE, Ur Drug Screen Comment 07/08/23 17:05: POC Glucose 246 H 07/08/23 18:06: POC Glucose 191 H 07/08/23 18:58: POC Glucose 145 H 07/08/23 19:55: Sodium 150 H, Potassium 3.2 L, Chloride 116 H, Carbon Dioxide 22.0, Anion Gap 12, BUN 22 H, Creatinine 1.66 H, Estim Creat Clear Calc 47.79, Est GFR (MDRD) Af Amer 61, Est GFR (MDRD) Non-Af 50 L, BUN/Creatinine Ratio 13.3, Glucose 132 H, Calcium 8.2 L 07/08/23 19:59: POC Glucose 122 H 07/08/23 21:05: POC Glucose 96 07/08/23 21:10: Acetone Level SMALL H 07/08/23 22:02: POC Glucose 97 07/08/23 23:01: POC Glucose 65 L 07/08/23 23:27: POC Glucose 132 H 07/08/23 23:50: Sodium 150 H, Potassium 3.4 L, Chloride 115 H, Carbon Dioxide 28.0, Anion Gap 7, BUN 20 H, Creatinine 1.71 H, Estim Creat Clear Calc 46.39, Est GFR (MDRD) Af Amer 59 L, Est GFR (MDRD) Non-Af 49 L, BUN/Creatinine Ratio 11.7, Glucose 136 H, Calcium 8.1 L 07/09/23 00:26: POC Glucose 124 H 07/09/23 01:26: POC Glucose 184 H 07/09/23 02:21: POC Glucose 193 H 07/09/23 03:28: POC Glucose 279 H 07/09/23 03:48: WBC 13.2 H, RBC 3.92 L, Hgb 12.4 L, Hct 37.3 L, MCV 95.2 H, MCH 31.6, MCHC 33.2, RDW Std Deviation 46.5 H, RDW Coeff of Nathaniel 13.3, Plt Count 282, MPV 9.2, Immature Gran % (Auto) PSYCHOLOGY CLINICIAN, Neut % (Auto) PSYCHOLOGY CLINICIAN, Lymph % (Auto) PSYCHOLOGY CLINICIAN, Gallia % (Auto) PSYCHOLOGY CLINICIAN, Eos % (Auto) PSYCHOLOGY CLINICIAN, Baso % (Auto) PSYCHOLOGY CLINICIAN, Absolute Neuts (auto) 8.2 H, Absolute Lymphs (auto) 1.22, Total Counted 100, Neutrophils % (Manual) 75 H, Lymphocytes % (Manual) 9 L, Monocytes % (Manual) 10, Eosinophils % (Manual) 6 H, Nucleated RBC % 0, Diff Path Review May foll, RBC Morphology N CHROM, Poikilocytosis May foll, Sodium 146 H, Potassium 3.9, Chloride 113 H, Carbon Dioxide 23.0, Anion Gap 10, BUN 20 H, Creatinine 1.94 H, Estim Creat Clear Calc 40.89, Est GFR (MDRD) Af Amer 51 L, Est GFR (MDRD) Non-Af 42 L, BUN/Creatinine Ratio 10.3, Glucose 354 H, Calcium 7.9 L, TSH 0.59, Acetone Level SMALL H 07/09/23 04:40: POC Glucose 292 H 07/09/23 05:28: POC Glucose 224 H 07/09/23 06:22: POC Glucose 177 H Micro: Microbiology 07/08/23 12:21 Mucosa - Nose Respiratory Panel (PCR) - Final 07/08/23 08:30 Mucosa - Nasopharyngeal SARS-CoV-2, Influenza & RSV (PCR) - Final ABG Data ABG results: ABG 07/08/23 08:44 Specimen Type AMAOD Sample Site Not entered O2 % 21.0 VBG pH 7.46 H VBG pO2 98 H VBG HCO3 20 L VBG Total CO2 21 L VBG O2 Sat (Calc) 98 H VBG Base Excess -4 L POC Mix VBG pCO2 Pt Tmp 27.4 L O2 Delivery Device Not entered Radiography Diagnostic Testing: Radiology Impression Chest X-Ray 07/08/23 08:34 IMPRESSION: Normal x-ray examination of the chest. Electronically Signed: Crow Cui MD at 9:02 EST , Physical Exam Narrative General: Wakes up easily HEENT: Atraumatic, normocephalic Eyes: Anicteric, normal conjunctiva, extraocular movements grossly intact Neck: Supple Respiratory: Clear to auscultation bilaterally, normal respiratory effort Cardiovascular: Regular rate and rhythm GI: Soft, nontender, nondistended Extremities: No edema Musculoskeletal: Moving all extremities Neuro: No overt focal neurological deficits Skin: No rashes appreciated Psych: Superficially cooperative Assessment & Plan Assessment/Plan (1) Acute kidney injury: (2) Diabetes mellitus type I: QUALIFIERS: Diabetes mellitus complication status: with hyperglycemia Qualified Code(s): E10.65 - Type 1 diabetes mellitus with hyperglycemia (3) Lactic acidosis: PLAN: Plan #Acute kidney failure -Creatinine 3.61 with a baseline around 1, aggressively hydrate -Improving with fluids -Patient profoundly volume depleted, if does not continue to improve can further investigate however given all cell lines increased as well as clinical picture and nausea and vomiting with poor p.o. suspect that this is related to volume depletion -07/09: Initially improved but is somewhat plateaued, creatinine 1.94 this a.m., will obtain kidney ultrasound and urine lytes #Hyperglycemia in setting of type I diabetes -Patient with confounding acid-base picture -Patient with glucose of 212, BUN elevated at 36, anion gap of 23 but had normal bicarb and pH slightly alkalotic -Did have moderate acetone and elevated anion gap however -Suspect patient had profound contraction alkalosis as well as respiratory compensation given his low CO2 resulting in elevated pH -After aggressive fluid resuscitation anion gap still elevated at 20 and bicarb 18, suspect that correcting contraction alkalosis was revealing metabolic acidosis but VBG not obtained at the time so cannot confirm -Do suspect there is a mild component of DKA confounding picture -Glucose did increase to 371 and given gap and acetone patient was started on insulin drip -Additionally patient having nausea and vomiting and poor p.o., will need to monitor closely -Monitor I's and O's -BMP every 4 hours -When serum glucose is <250 mg/dl, change IV fluids to D5%1/2NS at 150 ml/hr and continue insulin drip as per nomogram -Aggressive fluid hydration -07/09: Acetone has been small, widely variable glucose, will transition to subcu insulin once patient tolerating p.o., had been hypokalemic so fluids adjusted #Lactic acid elevation and leukocytosis -Patient with some vague complaints including cough, stuffy nose, sore throat -White blood cell count 19.4 with left shift on presentation green and patient profoundly volume depleted but has additional lactic acid elevation and slight elevation of Pro-Cem of 0.61 -Respiratory viral panel negative -Chest x-ray normal -Aggressively fluid resuscitate, given patient still with elevated heart rate, somewhat soft BP and increased lactic acid we will panculture and start on empiric antibiotics with plans to de-escalate if cultures negative but cannot rule out infection as cause or contributor at this time -07/09: Has been receiving IV fluids, awaiting cultures, continue empiric antibiotics today, all cell lines did decrease but does still have leukocytosis # Hypernatremia -Patient transition to D5 half-normal #Cocaine positive UDS -Does not seem patient is on anything that would be false positive for this #DVT ppx: Heparin subcu Ninoska Welch MD Time spent in the patient's overall evaluation,decision-making process, review of diagnostic data, adjustment of management, discussion with other providers, nursing nursing and ancillary staff involved in patient's care documentation, 35 Minutes Capacity Legal Calender Supervisor Reflex Medical hold order details:: IF a medical hold is selected below, a suggested order for a MEDICAL HOLD will reflex upon signing the document. Next of kin: [place] law dictates a PRIORITY LIST for identifying legal decision-maker/legal next of kin in the following order (LNOK): 1st: The patient?s legal guardian, if any 2nd: The patient's spouse (if status is questionable, consult Risk Management) 3rd: The patient?s adult child(faustino) (majority, if multiple children) 4th: The patient?s parents 5th: The patient?s adult siblings (majority, if multiple children siblings) Charges/Coding Visit Charges Inpatient E&M: 32642 Subs Hosp L2
--- NOTE | 2023-07-09 06:47 | US_ITS ---
HISTORY: MIREILLE not improving as expected. TECHNIQUE: Bernardo scale and color doppler images were obtained of the kidneys. 77 images. COMPARISON: CT to 321. FINDINGS: RIGHT KIDNEY: 11.6 cm in length with a cortical thickness of 2.2 cm. Contour and echogenicity unremarkable. No hydronephrosis. 5 mm echogenic focus at the hilum. LEFT KIDNEY: 11.9 cm in length with a cortical thickness of 1.8 cm. Contour and echogenicity unremarkable. Trace perinephric fluid. No hydronephrosis. 8 mm cyst. URINARY BLADDER: Distended at 362 cc with the bilateral ureteral jets visualized. 3 mm wall thickness. US/Kidney and Bladder IMPRESSION: Small nonobstructing right renal calcification. Subcentimeter left renal cyst with adjacent trace perinephric fluid. No hydronephrosis. Electronically Signed: Leesa Reyez MD at 12:45 EST ,
[2023-07-09 07:23] LABS: Anion Gap 7 (5-15); BUN 22 mg/dL (7-18); Calcium,Total 8.2 mg/dL (8.5-10.1); Chloride 115 mmol/L (98-107); EST Glomerular Filtration Rate 36 mL/min (>60); Est Glom Filt Rate - Afr Amer 44 mL/min (>60); Estimated Creatinine Clearance 38.84 ml/min; Glucose 263 mg/dL (74-106); Potassium 3.9 mmol/L (3.5-5.1); Sodium Level 146 mmol/L (136-145)
[2023-07-09 07:41] LABS: Bedside Glucose 281 mg/dL (74-106)
[2023-07-09 08:43] LABS: Bedside Glucose 209 mg/dL (74-106)
[2023-07-09 10:15] LABS: Bedside Glucose 116 mg/dL (74-106)
[2023-07-09] MEDS: Benzonatate 100 MG Capsule PO (10:46)
[2023-07-09 11:06] LABS: Bedside Glucose 105 mg/dL (74-106)
[2023-07-09 11:56] LABS: Bedside Glucose 113 mg/dL (74-106)
--- NOTE | 2023-07-09 12:30 | CASEMGMT ---
RN CM Face to Face with patient for initial transition planning/care coordination assessment. RN CM introduced self and role at [facility]. Patient lying in bed, alert and oriented, family at bedside. Patient willing to participate in assessment and is able to answer all questions appropriately. Care providers, pharmacy, and demographics verified. Patient wishes to discharge home, denies need for home health at this time. Patient states he has no further needs or concerns at this time. CM to follow for discharge planning needs that may arise. PCP: Gianna Specialists: [facility] Preferred [facility]acy: [facility] Insurance: Philippe Prescription Benefit: yes Living Will/HPOA: none LNOK: mother Living Arrangements: Patient lives with mother in a single story home with 2 steps to enter the home. Patient is independent at home. Transportation: self, mother DME/HHC: Patient has glucometer and insulin with supplies. Mother and son deny needs at this time. Disposition Plan: Patient to discharge home with family support and follow-up plans in place. Kelsie GUEVARA, RN, CM
[2023-07-09 12:36] LABS: Urea Nitrogen, Urine 573 mg/dL (NO RANGE EST.); Urine Chloride 51 mmol/L (Not Establ.); Urine Sodium 48 mmol/L (Not Establ.)
[2023-07-09 13:14] LABS: Bedside Glucose 130 mg/dL (74-106)
[2023-07-09 13:26] LABS: Osmolality, Urine 529 mOsm/KG
[2023-07-09 14:38] LABS: Bedside Glucose 101 mg/dL (74-106)
[2023-07-09 14:49] LABS: Anion Gap 7 (5-15); BUN 21 mg/dL (7-18); BUN/Creat Ratio 7.5 RATIO (10-20); Calcium,Total 7.8 mg/dL (8.5-10.1); Chloride 118 mmol/L (98-107); Creatinine, Serum 2.81 mg/dL (0.70-1.30); EST Glomerular Filtration Rate 27 mL/min (>60); Est Glom Filt Rate - Afr Amer 33 mL/min (>60); Estimated Creatinine Clearance 30.41 ml/min; Glucose 107 mg/dL (74-106); Potassium 3.4 mmol/L (3.5-5.1); Sodium Level 149 mmol/L (136-145)
[2023-07-09 15:36] LABS: Bedside Glucose 82 mg/dL (74-106)
[2023-07-09 16:34] LABS: Bedside Glucose 88 mg/dL (74-106)
[2023-07-09 17:41] LABS: Bedside Glucose 121 mg/dL (74-106)
[2023-07-09 20:09] LABS: Bedside Glucose 142 mg/dL (74-106)
[2023-07-09] MEDS: Heparin Injection (Vial) 5,000 UNIT/ML VIAL 5000 UNIT SC (21:23)
[2023-07-09] MEDS: 0.9% Saline Lock 10 ML Syringe IV (21:40)
[2023-07-09] MEDS: KCL 20MEQ in D5.45NS 20 MEQ/1,000 ML IV.SOLN. 200 MEQ IV (21:52)
[2023-07-09 21:53] LABS: Bedside Glucose 176 mg/dL (74-106)
[2023-07-09 21:53] LABS: Bedside Glucose 159 mg/dL (74-106)
[2023-07-09 23:49] LABS: Bedside Glucose 106 mg/dL (74-106)
[2023-07-09 23:50] LABS: Bedside Glucose 105 mg/dL (74-106)
[2023-07-10] VITALS (25 sets, daily range): BP systolic 112–150; BP diastolic 78–98; PULSE 55–98; RESP 12–21; TEMP 36.1–36.6; O2SAT 94–100
[2023-07-10 00:54] LABS: Bedside Glucose 99 mg/dL (74-106)
[2023-07-10] MEDS: proMETHazine 25 MG/ML Syringe IM (01:02)
[2023-07-10 02:52] LABS: Bedside Glucose 87 mg/dL (74-106)
[2023-07-10] MEDS: KCL 20MEQ in D5.45NS 20 MEQ/1,000 ML IV.SOLN. 200 MEQ IV ×2 (02:59→08:01)
[2023-07-10] MEDS: Insulin Lispro 100 UNIT in 0.9% Normal Saline (100mL Bag) 99 ML CONT INF (03:01)
[2023-07-10] MEDS: Pantoprazole Sodium 40 MG in 0.9% Normal Saline (100mL MB+) 100 ML 330 MG IV (03:02)
[2023-07-10] MEDS: 0.9% Saline Lock 10 ML Syringe IV ×7 (03:05→22:50)
[2023-07-10 03:12] LABS: Absolute Lymphocyte Count 0.91 X10^3/uL (0.83-4.51); Absolute Neutrophil Count 3.9 X10^3/uL (2.0-7.7); Basophil# 0.02 X10^3/uL; Basophil% 0.4 % (0-1); Hematocrit 31.5 % (40-54); Hemoglobin 10.3 g/dL (13.0-16.5); Lymphocyte # 0.91 X10^3/ul (0.83-4.51); Lymphocyte % 17.5 % (19-41); Mean Corp Hgb Conc 32.7 g/dL (32-36); Mean Corpuscular Hgb 31.9 pg (27.0-32.0); Mean Corpuscular Volume 97.5 fL (80-94); Mean Platelet Vol. 9.2 fl (6.2-12.0); Monocyte# 0.34 X10^3/uL; Monocyte% 6.5 % (0-10); NRBC Flagged by Analyzer 0 % (0-5); Platelet Count 170 K/mm3 (150-450); RBC Distribution Width CV 12.9 % (11.6-14.6); RBC Distribution Width SD 45.8 fl (35.1-43.9); Red Blood Count 3.23 M/mm3 (4.6-6.2); White Blood Count 5.2 K/mm3 (4.4-11.0)
[2023-07-10 03:36] LABS: Anion Gap 6 (5-15); BUN 19 mg/dL (7-18); BUN/Creat Ratio 6.3 RATIO (10-20); Calcium,Total 6.5 mg/dL (8.5-10.1); Chloride 121 mmol/L (98-107); EST Glomerular Filtration Rate 25 mL/min (>60); Est Glom Filt Rate - Afr Amer 31 mL/min (>60); Estimated Creatinine Clearance 28.15 ml/min; Glucose 94 mg/dL (74-106); Potassium 3.2 mmol/L (3.5-5.1); Sodium Level 148 mmol/L (136-145)
[2023-07-10 03:50] LABS: Bedside Glucose 80 mg/dL (74-106)
[2023-07-10] MEDS: Calcium Gluconate IV 2 GM in 0.9% Normal Saline (100mL Bag) 100 ML IV (04:23)
[2023-07-10 05:01] LABS: Bedside Glucose 71 mg/dL (74-106)
[2023-07-10 05:52] LABS: Bedside Glucose 84 mg/dL (74-106)
[2023-07-10] MEDS: Piperacil/Tazobactam 3.375 GM in 0.9% Normal Saline (50mL MB+) 50 ML IV ×3 (06:38→22:24)
--- NOTE | 2023-07-10 06:41 | PCM.PN.HOSP ---
Reason for Visit Reason for Visit: Diagnoses Type 1 diabetes mellitus with hyperglycemia (07/08/23) Acidosis (07/08/23) Acute kidney failure, unspecified (07/08/23) Subjective Subjective Patient still feeling intermittently nauseous, also has some chest discomfort and feels his hands are puffy, still having some diarrhea but it is slowed down, tolerating clear liquids somewhat better than yesterday, reports he is urinating okay Objective Data Objective Data Vital Signs: Vital Signs Temp Pulse Resp BP Pulse Ox O2 Del Method O2 Flow Rate 97.0 F L 60 19 H 134/95 H 97 Room Air 2 07/10/23 06:00 07/10/23 06:00 07/10/23 06:00 07/10/23 06:00 07/10/23 06:00 07/10/23 06:00 07/08/23 22:00 Oxygen Flow Rate (L/min) 2 Oxygen Delivery Method Room Air Weight: 57.9 kg Body Mass Index (BMI) 20.0 Intake & Output: Intake and Output for Last 24 Hours 07/08/23 07/09/23 07/10/23 23:59 23:59 23:59 Intake Total 5005.96 / 5005.96 3992.98 / 4042.98 1392.20 / 1392.20 Output Total 300 / 450 150 / 150 Balance 5005.96 / 4905.96 3692.98 / 3592.98 1242.20 / 1242.20 Medical Nutrition Assessment Dietitian: Malnutrition Criteria Met Start: 07/09/23 11:55 Freq: Status: Active Protocol: Document 07/09/23 11:55 RMA (Rec: 07/09/23 11:55 RMA [id number]) Nutrition Malnutrition Evidence of Malnutrition Exists Yes Malnutrition (severe): Acute Illness/Injury,Chronic Evidenced By Suboptimal Energy Intake ( Severe),Weight Loss (Severe) Intake Problem Inadequate Oral Intake Etiology related to altered GI function /hyperglycemia Signs/Symptoms as evidenced by NPO/clear liquid diet x day 2 Status Active Problem Clinical Problem Chronic Disease or Condition Related Malnutrition Etiology related to inadequate oral intake, dietary noncompliance, altered GI function and hyperglycemia Signs/Symptoms as evidenced by unintentional weight loss ~5-7% x 1 month, BMI 20.2 and PO meeting less than 50% estimated nutrition needs x past 1 month Status Active Problem Recommendation Dietitian Recommendations/Changes Recommend advance diet as tolerated to 2000 calorie/ consistent carbohydrate. PO Glucerna Shake as diet advanced from clear liquids. Diet education as pt willing to receive. Lab / Micro Data 07/10/23 03:05 07/10/23 13:25 Labs: Laboratory Results - last 24 hr 07/09/23 07:00: Sodium 146 H, Potassium 3.9, Chloride 115 H, Carbon Dioxide 24.0, Anion Gap 7, BUN 22 H, Creatinine 2.20 H, Estim Creat Clear Calc 38.84, Est GFR (MDRD) Af Amer 44 L, Est GFR (MDRD) Non-Af 36 L, BUN/Creatinine Ratio 10.0, Glucose 263 H, Calcium 8.2 L 07/09/23 07:23: POC Glucose 281 H 07/09/23 08:25: POC Glucose 209 H 07/09/23 09:50: POC Glucose 116 H 07/09/23 10:44: POC Glucose 105 07/09/23 11:39: POC Glucose 113 H 07/09/23 12:15: Urine Osmolality 529, Ur Random Sodium 48, Urine Creatinine 122.00, Urine Potassium 40.0, Urine Chloride 51, Urine Urea Nitrogen 573 07/09/23 12:47: POC Glucose 130 H 07/09/23 14:13: POC Glucose 101 07/09/23 14:20: Sodium 149 H, Potassium 3.4 L, Chloride 118 H, Carbon Dioxide 24.0, Anion Gap 7, BUN 21 H, Creatinine 2.81 H, Estim Creat Clear Calc 30.41, Est GFR (MDRD) Af Amer 33 L, Est GFR (MDRD) Non-Af 27 L, BUN/Creatinine Ratio 7.5 L, Glucose 107 H, Calcium 7.8 L 07/09/23 15:17: POC Glucose 82 07/09/23 16:14: POC Glucose 88 07/09/23 17:19: POC Glucose 121 H 07/09/23 19:42: POC Glucose 142 H 07/09/23 20:38: POC Glucose 176 H 07/09/23 21:32: POC Glucose 159 H 07/09/23 22:27: POC Glucose 106 07/09/23 23:31: POC Glucose 105 07/10/23 00:32: POC Glucose 99 07/10/23 02:31: POC Glucose 87 07/10/23 03:05: WBC 5.2, RBC 3.23 L, Hgb 10.3 L, Hct 31.5 L, MCV 97.5 H, MCH 31.9, MCHC 32.7, RDW Std Deviation 45.8 H, RDW Coeff of Nathaniel 12.9, Plt Count 170, MPV 9.2, Immature Gran % (Auto) 0.600, Neut % (Auto) 75.0 H, Lymph % (Auto) 17.5 L, [place] % (Auto) 6.5, Eos % (Auto) 0.0, Baso % (Auto) 0.4, Absolute Neuts (auto) 3.9, Absolute Lymphs (auto) 0.91, Nucleated RBC % 0, Sodium 148 H, Potassium 3.2 L, Chloride 121 H, Carbon Dioxide 21.0, Anion Gap 6, BUN 19 H, Creatinine 3.00 H, Estim Creat Clear Calc 28.15, Est GFR (MDRD) Af Amer 31 L, Est GFR (MDRD) Non-Af 25 L, BUN/Creatinine Ratio 6.3 L, Glucose 94, Calcium 6.5 L* 07/10/23 03:31: POC Glucose 80 07/10/23 04:38: POC Glucose 71 L 07/10/23 04:48: Acetone Level NEGATIVE 07/10/23 05:32: POC Glucose 84 Micro: Microbiology 07/09/23 18:55 Stool Enteric Bacteriology - Final 07/09/23 18:55 Stool Clostridioides difficile (PCR) - Final 07/08/23 12:21 Mucosa - Nose Respiratory Panel (PCR) - Final 07/08/23 08:30 Mucosa - Nasopharyngeal SARS-CoV-2, Influenza & RSV (PCR) - Final Radiography Diagnostic Testing: Radiology Impression Renal Ultrasound 07/09/23 06:47 IMPRESSION: Small nonobstructing right renal calcification. Subcentimeter left renal cyst with adjacent trace perinephric fluid. No hydronephrosis. Electronically Signed: Leesa Reyez MD at 12:45 EST , Physical Exam Narrative General: Alert, oriented, no apparent distress HEENT: Atraumatic, normocephalic Eyes: Anicteric, normal conjunctiva, extraocular movements grossly intact Neck: Supple Respiratory: Clear to auscultation bilaterally, normal respiratory effort Cardiovascular: Regular rate and rhythm GI: Soft, no significant tenderness, no rebound, guarding, rigidity, nondistended Extremities: No edema Musculoskeletal: Moving all extremities Neuro: No overt focal neurological deficits Skin: No rashes appreciated Psych: Cooperative Assessment & Plan Assessment/Plan (1) Acute kidney injury: (2) Diabetes mellitus type I: QUALIFIERS: Diabetes mellitus complication status: with hyperglycemia Qualified Code(s): E10.65 - Type 1 diabetes mellitus with hyperglycemia (3) Lactic acidosis: PLAN: Plan #Acute kidney failure -Creatinine 3.61 with a baseline around 1, aggressively hydrate -Improving with fluids -Patient profoundly volume depleted, if does not continue to improve can further investigate however given all cell lines increased as well as clinical picture and nausea and vomiting with poor p.o. suspect that this is related to volume depletion -07/09: Initially improved but is somewhat plateaued, creatinine 1.94 this a.m., will obtain kidney ultrasound and urine lytes -07/10: Kidney function had improved with fluids however started worsening subsequent fluids and nephrology was consulted and ordered further labs and CT, CT showed edema and multiple areas and fluids stopped, kidney function is further worsened, nephrology on board #Hyperglycemia in setting of type I diabetes -Patient with confounding acid-base picture -Patient with glucose of 212, BUN elevated at 36, anion gap of 23 but had normal bicarb and pH slightly alkalotic -Did have moderate acetone and elevated anion gap however -Suspect patient had profound contraction alkalosis as well as respiratory compensation given his low CO2 resulting in elevated pH -After aggressive fluid resuscitation anion gap still elevated at 20 and bicarb 18, suspect that correcting contraction alkalosis was revealing metabolic acidosis but VBG not obtained at the time so cannot confirm -Do suspect there is a mild component of DKA confounding picture -Glucose did increase to 371 and given gap and acetone patient was started on insulin drip -Additionally patient having nausea and vomiting and poor p.o., will need to monitor closely -Monitor I's and O's -BMP every 4 hours -When serum glucose is <250 mg/dl, change IV fluids to D5%1/2NS at 150 ml/hr and continue insulin drip as per nomogram -Aggressive fluid hydration -07/09: Acetone has been small, widely variable glucose, will transition to subcu insulin once patient tolerating p.o., had been hypokalemic so fluids adjusted -07/10: Patient taken off of fluids and D5, glucose checks and short acting subcu insulin, if patient is tolerating p.o. can transition with long-acting however patient not reliably taking p.o. at this time #Lactic acid elevation and leukocytosis -Patient with some vague complaints including cough, stuffy nose, sore throat -White blood cell count 19.4 with left shift on presentation green and patient profoundly volume depleted but has additional lactic acid elevation and slight elevation of Pro-Cem of 0.61 -Respiratory viral panel negative -Chest x-ray normal -Aggressively fluid resuscitate, given patient still with elevated heart rate, somewhat soft BP and increased lactic acid we will panculture and start on empiric antibiotics with plans to de-escalate if cultures negative but cannot rule out infection as cause or contributor at this time -07/09: Has been receiving IV fluids, awaiting cultures, continue empiric antibiotics today, all cell lines did decrease but does still have leukocytosis -07/10: Cultures no growth thus far, continue to monitor, patient on Zosyn # Hypernatremia -Patient transition to D5 half-normal -07/10: Resolved on most recent draw #Cocaine positive UDS -Does not seem patient is on anything that would be false positive for this #DVT ppx: Heparin subcu Ninoska Welch MD Time spent in the patient's overall evaluation,decision-making process, review of diagnostic data, adjustment of management, discussion with other providers, nursing nursing and ancillary staff involved in patient's care documentation, 35 Minutes Capacity Legal Steel Erector Apprentice Reflex Medical hold order details:: IF a medical hold is selected below, a suggested order for a MEDICAL HOLD will reflex upon signing the document. Next of kin: [place] law dictates a PRIORITY LIST for identifying legal decision-maker/legal next of kin in the following order (LNOK): 1st: The patient?s legal guardian, if any 2nd: The patient's spouse (if status is questionable, consult Risk Management) 3rd: The patient?s adult child(faustino) (majority, if multiple children) 4th: The patient?s parents 5th: The patient?s adult siblings (majority, if multiple children siblings) Charges/Coding Visit Charges Inpatient E&M: 28641 Subs Hosp L2
[2023-07-10 06:53] LABS: Bedside Glucose 96 mg/dL (74-106)
[2023-07-10] MEDS: Lactated Ringers 1,000 ML 999 ML IV (07:31)
[2023-07-10 08:00] LABS: Bedside Glucose 110 mg/dL (74-106)
[2023-07-10] MEDS: Scopolamine 1mg/72hr Patch 1 PATCH TD (08:23)
[2023-07-10 08:48] LABS: Bedside Glucose 135 mg/dL (74-106)
[2023-07-10] MEDS: Potassium Chloride 10mEq/100mL 10 MEQ/100 ML IV.SOLN. 100 MEQ IV BOLUS ×2 (08:52→10:06)
[2023-07-10 09:30] LABS: Urea Nitrogen, Urine 283 mg/dL (NO RANGE EST.); Urine Chloride 55 mmol/L (Not Establ.); Urine Sodium 46 mmol/L (Not Establ.)
[2023-07-10 09:31] LABS: Pathologist Review Reviewed
[2023-07-10 10:22] LABS: Osmolality, Urine 297 mOsm/KG
--- NOTE | 2023-07-10 10:25 | CASEMGMT ---
Per nursing admission assessment patient does not have Healthcare Power of Leasing Coordinator or Healthcare Living Will and declined information. 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
[2023-07-10 11:07] LABS: Bedside Glucose 173 mg/dL (74-106)
--- NOTE | 2023-07-10 11:07 | CT_ITS ---
INDICATION: abdominal pain EXAMINATION: CT ABDOMEN WITHOUT CONTRAST - CT Abdomen W/O Contrast Injection TECHNIQUE: Multiple axial images were obtained of the abdomen without oral or IV contrast. A radiation dose optimization technique was used for this scan. IV Contrast dosage and agent: None. Oral contrast: None. RADIATION DOSAGE (If Supplied By Facility): CTDIvol = ( 6.04 ) mGy, DLP = ( 323.17 ) mGycm COMPARISON: 07/26/2020 FINDINGS: LOWER CHEST: Interstitial edema present. Trace right pleural effusion. LIVER: Normal in size, morphology and attenuation. Diffuse periportal edema. No focal mass. GALLBLADDER AND BILIARY TREE: No calcified gallstones. Prominent gallbladder wall edema. No gallbladder distention. No intra- or extrahepatic biliary ductal dilation. PANCREAS: No focal cystic or solid mass. SPLEEN: Normal size without focal cystic or solid mass. ADRENAL GLANDS: No nodules. KIDNEYS AND URETERS: Normal renal size and position. No hydronephrosis. There are a couple punctate nonobstructive calculi in the right kidney. PERITONEUM: Trace ascites. No free air. No other fluid collection. BOWEL: No stomach or bowel distension. No focal inflammatory change. LYMPH NODES: No enlarged mesenteric or retroperitoneal lymph nodes. VESSELS: Aorta is non-dilated. ABDOMINAL WALL: No discrete abdominal wall hernia. Small subcutaneous gas in the anterior abdominal wall favored to relate to medication administration. BONES: No acute or suspicious osseous abnormalities. CT/Abdomen/Pelvis without Cont IMPRESSION: * Findings compatible with fluid overload, including interstitial pulmonary edema, trace right pleural effusion, diffuse periportal edema, gallbladder wall edema and trace ascites. * There are couple punctate nonobstructive calculi in the right kidney. Electronically Signed: Esteban Cruz MD at 11:53 EST Reading Location ID and State: [id number] [facility] Tel , Service support ,
--- NOTE | 2023-07-10 11:11 | CON.PCM.RE_ITS ---
Assessment & Plan Assessment/Plan (1) Acute kidney injury: PLAN: This is young diabetic with 7 days history of epigastric and left upper quadrant pain radiating to the back who presents 7 days later with dehydration. As he appeared to be volume depleted with hypotension, alkalosis, he was started on volume expansion with temporary improvement in creatinine. Overnight creatinine stalled and started to rise and back to 3 now. Urine has some blood and a little bit of protein in it. He does not look volume depleted at the moment. At this point in time I want a rule out liver failure and pancreatitis that both can cause functional renal hypoperfusion. Will get a lipase, amylase, CT scan of the abdomen, check sedimentation rate. There would be quite unusual presentation for glomerulonephritis, but occasionally IgA nephropathy/Henoch- Roro?nlein purpura can present like that. Acute abdominal pain, rising creatinine, blood and protein in the urine. He does not have a purpura. Allergic interstitial nephritis is unlikely without corresponding medications and absence of symptoms or eosinophilia. (2) Acute kidney injury: (1) Acute kidney injury: HPI Consult Data Date of Consult: 07/10/23 HPI Narrative Reason for Consultation: Acute kidney injury HPI Narrative: HANS GONZALEZ, is a 33 M who presents last night with 1 week history of abdominal pain, intractable nausea and vomiting. He could not keep anything down. Patient is known to have type 1 diabetes for about 25 years that has not been well-controlled. Review of his records revealed that he had several episodes of acute kidney injury in the past for all sorts of different reasons. But I believe his baseline creatinine is around 1. He when he came over yesterday his creatinine was elevated 3.6, he was hypotensive, alkalotic, appeared to be volume contracted. He has received a large amount of IV fluids and his creatinine improved by the end of the day to 1.6, however since is been on the rise. Kidney ultrasound showed normal kidneys without hydronephrosis, with good thickness. On today's exam patient complained on the intensive left upper quadrant and epigastric pain, worse with palpation, but no rebound. He does not recall history of pancreatitis. His brother states that he does use alcohol. He denies use of nonsteroidals, he does not take any blood pressure medications or diuretics. His urinalysis had 1+ protein, 2+ blood, but there was no casts or dysmorphic RBCs reported. He came over with a hemoglobin of 17 and it is down to 10 today with volume expansion. Blood pressure has normalized. Apparently he had some chills at home, but no real fever. He denies any respiratory symptoms, there is no skin rashes. There is no increased eosinophils on CBC. He states he takes only insulin and 2 antidepressants at home. He occasionally takes omeprazole. [facility] Medical History Anxiety and depression Arthritis Elevated blood pressure reading without diagnosis of hypertension Gastroenteritis Headache Headache, migraine Major depression with psychotic features Pain and numbness of upper extremity Type 1 diabetes mellitus Vision problems Home Medications flash glucose scanning reader ([employer] Celena 2 [place]) #1 ea 08/18/20 [Rx Last Taken Unknown] flash glucose sensor (FreeStyle Celena 2 Sensor kit) #2 ea 02/19/23 [Rx Last Taken Unknown] insulin aspart U-100 100 unit/mL (3 mL) subcutaneous pen (Novolog FlexPen U-100 Insulin aspart) 12 unit subcut TIDCM DIABETES 07/08/23 [History Last Taken 07/08/23] Allergy/AdvReac Type Severity Reaction Status Date / Time No Known Allergies Allergy Verified 12/30/22 13:08 Family History Grandfather Myocardial infarction COPD (chronic obstructive pulmonary disease) Brother Depression suicide attempt Uncle Diabetes Father Diabetes Aunt Diabetes Surgical History trigger finger surgery Social History Smoking Status: Current some day smoker tobacco type: cigarettes Tobacco: How many years used: 13 second hand exposure: No alcohol intake: never substance use type: marijuana what type of physical activity do you participate in: walking, running and weight training frequency: 3-4 times per week ROS Constitutional Constitutional: Reports chills, malaise, weakness and weight loss ENT HEENT: Reports dry mouth Cardiovascular Cardiovascular: Denies chest pain, claudication, diaphoresis, dyspnea on exertion, edema, irregular heart rhythm, leg edema, orthopnea, palpitations or syncope Respiratory/Chest Respiratory/Chest: Denies dry cough, dyspnea on exertion, hemoptysis, portable oxygen @ home, productive cough, shortness of breath at rest or wheezing Gastrointestinal Gastrointestinal: Reports abdominal pain, anorexia, dry heaves, nausea and vomiting Genitourinary Genitourinary: Denies change in urinary stream, difficulty urinating, dribbling, dysuria, flank pain, hematuria, nocturia, oliguria, post void dribbling, urinary frequency, urinary hesitancy, urinary incontinence or urinary urgency Musculoskeletal Musculoskeletal: Denies abnormal gait, arthralgias, joint stiffness, joint swelling, muscle cramps or myalgias Integumentary Integumentary: Denies dry skin, erythema, jaundice, lesions, pruritus, rash or skin ulcer Neurologic Neurologic: Denies abnormal gait, burning sensations, confusion, focal weakness, frequent falls, headache(s), numbness, restless legs, seizures, syncope, tremor(s) or weakness Psychiatric Psychiatric: Reports anxiety Endocrine Endocrinology: Denies cold intolerance, fatigue, heat intolerance, polydipsia or polyuria Physical Exam Const alert and oriented x3 General Appearance: frail Orientation / Consciousness: oriented to person, oriented to place and oriented to time Nutritional Appearance: thin HEENT normocephalic Head and Scalp: atraumatic Neck no lymphadenopathy Resp no use of accessory muscles Cardio regular rate, no murmurs and no rub GI GI Narrative: Abdomen is tender to palpation especially in epigastrium and the left upper quadrant, no rebound, bowel sounds are sluggish Palpation: tender epigastric and LLQ Skin no rashes or lesions noted Neuro Sensorium / Orientation: somnolent Psych cooperative Medical Records Data Medical Nutrition Assessment Dietitian: Malnutrition Criteria Met Start: 07/09/23 11:55 Freq: Status: Active Protocol: Document 07/09/23 11:55 RMA (Rec: 07/09/23 11:55 RMA [id number]) Nutrition Malnutrition Evidence of Malnutrition Exists Yes Malnutrition (severe): Acute Illness/Injury,Chronic Evidenced By Suboptimal Energy Intake ( Severe),Weight Loss (Severe) Intake Problem Inadequate Oral Intake Etiology related to altered GI function /hyperglycemia Signs/Symptoms as evidenced by NPO/clear liquid diet x day 2 Status Active Problem Clinical Problem Chronic Disease or Condition Related Malnutrition Etiology related to inadequate oral intake, dietary noncompliance, altered GI function and hyperglycemia Signs/Symptoms as evidenced by unintentional weight loss ~5-7% x 1 month, BMI 20.2 and PO meeting less than 50% estimated nutrition needs x past 1 month Status Active Problem Recommendation Dietitian Recommendations/Changes Recommend advance diet as tolerated to 2000 calorie/ consistent carbohydrate. PO Glucerna Shake as diet advanced from clear liquids. Diet education as pt willing to receive. Lab / Micro Data Attestation: I reviewed the patient's lab results. 07/10/23 03:05 07/10/23 03:05 Labs: Laboratory Results - last 24 hr 07/08/23 07:53: Diff Path Review Reviewed 07/09/23 11:39: POC Glucose 113 H 07/09/23 12:15: Urine Osmolality 529, Ur Random Sodium 48, Urine Creatinine 122.00, Urine Potassium 40.0, Urine Chloride 51, Urine Urea Nitrogen 573 07/09/23 12:47: POC Glucose 130 H 07/09/23 14:13: POC Glucose 101 07/09/23 14:20: Sodium 149 H, Potassium 3.4 L, Chloride 118 H, Carbon Dioxide 24.0, Anion Gap 7, BUN 21 H, Creatinine 2.81 H, Estim Creat Clear Calc 30.41, Est GFR (MDRD) Af Amer 33 L, Est GFR (MDRD) Non-Af 27 L, BUN/Creatinine Ratio 7.5 L, Glucose 107 H, Calcium 7.8 L 07/09/23 15:17: POC Glucose 82 07/09/23 16:14: POC Glucose 88 07/09/23 17:19: POC Glucose 121 H 07/09/23 19:42: POC Glucose 142 H 07/09/23 20:38: POC Glucose 176 H 07/09/23 21:32: POC Glucose 159 H 07/09/23 22:27: POC Glucose 106 07/09/23 23:31: POC Glucose 105 07/10/23 00:32: POC Glucose 99 07/10/23 02:31: POC Glucose 87 07/10/23 03:05: WBC 5.2, RBC 3.23 L, Hgb 10.3 L, Hct 31.5 L, MCV 97.5 H, MCH 31.9, MCHC 32.7, RDW Std Deviation 45.8 H, RDW Coeff of Nathaniel 12.9, Plt Count 170, MPV 9.2, Immature Gran % (Auto) 0.600, Neut % (Auto) 75.0 H, Lymph % (Auto) 17.5 L, [place] % (Auto) 6.5, Eos % (Auto) 0.0, Baso % (Auto) 0.4, Absolute Neuts (auto) 3.9, Absolute Lymphs (auto) 0.91, Nucleated RBC % 0, Sodium 148 H, Potassium 3.2 L, Chloride 121 H, Carbon Dioxide 21.0, Anion Gap 6, BUN 19 H, Creatinine 3.00 H , Estim Creat Clear Calc 28.15, Est GFR (MDRD) Af Amer 31 L, Est GFR (MDRD) Non- Af 25 L, BUN/Creatinine Ratio 6.3 L, Glucose 94, Calcium 6.5 L* 07/10/23 03:31: POC Glucose 80 07/10/23 04:38: POC Glucose 71 L 07/10/23 04:48: Acetone Level NEGATIVE 07/10/23 05:32: POC Glucose 84 07/10/23 06:32: POC Glucose 96 07/10/23 07:34: POC Glucose 110 H 07/10/23 08:31: POC Glucose 135 H 07/10/23 08:40: Urine Osmolality 297, Ur Random Sodium 46, Urine Potassium 32.0, Urine Chloride 55, Urine Urea Nitrogen 283 07/10/23 10:42: POC Glucose 173 H Micro: Microbiology 07/08/23 16:15 Urine, Clean Catch Urine Culture - Final Culture exhibits no growth. 07/09/23 18:55 Stool Enteric Bacteriology - Final 07/09/23 18:55 Stool Clostridioides difficile (PCR) - Final Imagaing Radiology Impression Renal Ultrasound 07/09/23 06:47 IMPRESSION: Small nonobstructing right renal calcification. Subcentimeter left renal cyst with adjacent trace perinephric fluid. No hydronephrosis. Electronically Signed: Leesa Reyez MD at 12:45 EST , Capacity Legal Clinical Biochemical Geneticist Reflex Medical hold order details:: IF a medical hold is selected below, a suggested order for a MEDICAL HOLD will reflex upon signing the document. Next of kin: [place] law dictates a PRIORITY LIST for identifying legal decision-maker/legal next of kin in the following order (LNOK): 1st: The patient?s legal guardian, if any 2nd: The patient's spouse (if status is questionable, consult Risk Management) 3rd: The patient?s adult child(faustino) (majority, if multiple children) 4th: The patient?s parents 5th: The patient?s adult siblings (majority, if multiple children siblings)
[2023-07-10] MEDS: Heparin Injection (Vial) 5,000 UNIT/ML VIAL 5000 UNIT SC ×2 (11:18→22:29)
[2023-07-10 11:27] LABS: Bacteria 0 SEEN /hpf (None Seen); Mucous, Urine 0 SEEN /hpf (<or=2+); Red Blood Cells-Urine 0 SEEN /hpf (0-5)
[2023-07-10 11:30] LABS: Color, Urine Straw (Yellow); Glucose, Dipstick 250 mg/dl (Normal); Ketone-Dipstick 5 mg/dl (Negative); Leukocyte Esterase-Dipstick Negative /ul (Negative); Nitrite-Dipstick Negative (Negative); Occult Blood-Urine 10 /ul (Negative); Protein-Dipstick 30 mg/dl (Negative); Urine Bilirubin Dipstick Negative (Negative); Urine Clarity Clear (Clear); Urine Urobilinogen Normal (Normal)
[2023-07-10 12:24] LABS: Squamous Epithelial Cells - UA 0-5 SEEN /hpf (0-5); White Blood Cells 0-5 SEEN /hpf (0-5)
[2023-07-10] MEDS: Acetaminophen 325 MG Tablet 650 MG PO (13:00)
[2023-07-10 13:34] LABS: Bedside Glucose 209 mg/dL (74-106)
[2023-07-10 13:52] LABS: Erythrocyte Sedimentation Rate 7 mm/hr (0-20)
[2023-07-10 14:04] LABS: ALB/GLOB Ratio 0.8 RATIO (0.9-2.4); AST(SGOT) 294 U/L (15-37); Alanine Aminotransfer ALT/SGPT 64 U/L (16-61); Albumin, Serum 2.6 g/dL (3.2-5.0); Alkaline Phosphatase 177 U/L (45-117); Amylase 38 U/L (25-115); Anion Gap 7 (5-15); BUN 19 mg/dL (7-18); BUN/Creat Ratio 5.4 RATIO (10-20); Calcium,Total 7.9 mg/dL (8.5-10.1); Chloride 116 mmol/L (98-107); Creatinine, Serum 3.49 mg/dL (0.70-1.30); EST Glomerular Filtration Rate 21 mL/min (>60); Est Glom Filt Rate - Afr Amer 26 mL/min (>60); Estimated Creatinine Clearance 24.19 ml/min; Globulin 3.1 g/dL (2.2-4.2); Glucose 274 mg/dL (74-106); Lipase 55 U/L (13-75); Potassium 5.2 mmol/L (3.5-5.1); Protein, Total 5.7 g/dL (6.4-8.2); Sodium Level 141 mmol/L (136-145)
[2023-07-10 14:11] LABS: CPK Total, Creatine Kinase 303 U/L (39-308)
[2023-07-10] MEDS: Insulin Lispro 100 UNIT/ML INSULN.PEN SC ×4 (14:47→22:31)
[2023-07-10 15:09] LABS: Bedside Glucose 355 mg/dL (74-106)
--- NOTE | 2023-07-10 15:28 | US_ITS ---
INDICATION: Concern for gallbladder pathology EXAMINATION: Ultrasound US Abdomen Limited (quadrant) TECHNIQUE: [place] scale and color doppler imaging was performed of the right upper quadrant. COMPARISON: CT performed earlier same date FINDINGS: LIVER: The liver is normal in size, shape, and echogenicity. No focal hepatic lesion. No intrahepatic biliary ductal dilatation. Small perihepatic ascites. GALLBLADDER AND BILIARY TREE: Diffuse edematous gallbladder wall thickening as seen on the prior CT. There is simple appearing fluid between the liver and the gallbladder. No cholelithiasis. Sonographic Erwin sign is negative. Common bile duct measures 2.2 mm. PANCREAS: No focal abnormality is demonstrated in the pancreas. No pancreatic ductal dilatation. RIGHT KIDNEY: The right kidney measures 11.5 cm. No hydronephrosis or nephrolithiasis. No renal mass. US/Liver IMPRESSION: No cholelithiasis or evidence of cholecystitis. As seen on the prior CT, there is edematous gallbladder wall thickening, and fluid in the gallbladder fossa related to the patient''s generalized fluid overloaded status. Electronically Signed: Esteban Cruz MD at 16:52 EST ,
[2023-07-10 17:43] LABS: Bedside Glucose 260 mg/dL (74-106)
[2023-07-10 20:17] LABS: Bedside Glucose 155 mg/dL (74-106)
[2023-07-10] MEDS: Ondansetron 4 MG/2 ML Vial IV (22:48)
[2023-07-10 22:53] LABS: Bedside Glucose 170 mg/dL (74-106)
[2023-07-11] VITALS (11 sets, daily range): BP systolic 123–153; BP diastolic 81–94; PULSE 50–100; RESP 12–62; TEMP 36.3–37.2; O2SAT 98–100; BMI 19.8
[2023-07-11] MEDS: Insulin Lispro 100 UNIT/ML INSULN.PEN SC ×8 (01:29→20:37)
[2023-07-11 01:49] LABS: Bedside Glucose 264 mg/dL (74-106)
[2023-07-11] MEDS: Piperacil/Tazobactam 3.375 GM in 0.9% Normal Saline (50mL MB+) 50 ML IV ×3 (04:35→20:40)
[2023-07-11 04:52] LABS: Absolute Lymphocyte Count 1.24 X10^3/uL (0.83-4.51); Absolute Neutrophil Count 3.9 X10^3/uL (2.0-7.7); Basophil# 0.03 X10^3/uL; Basophil% 0.5 % (0-1); Eosinophil# 0.14 X10^3/uL; Eosinophils% 2.4 % (0-5); Hemoglobin 11.7 g/dL (13.0-16.5); Lymphocyte # 1.24 X10^3/ul (0.83-4.51); Mean Corp Hgb Conc 32.5 g/dL (32-36); Mean Corpuscular Volume 95.5 fL (80-94); Mean Platelet Vol. 9.7 fl (6.2-12.0); Monocyte% 10.2 % (0-10); NRBC Flagged by Analyzer 0 % (0-5); Neutrophil # 3.86 X10^3/uL (2.7-7.7); Neutrophil % 65.2 % (47-70); Platelet Count 176 K/mm3 (150-450); RBC Distribution Width CV 12.5 % (11.6-14.6); RBC Distribution Width SD 43.6 fl (35.1-43.9); Red Blood Count 3.77 M/mm3 (4.6-6.2); White Blood Count 5.9 K/mm3 (4.4-11.0)
[2023-07-11 05:02] LABS: Bedside Glucose 208 mg/dL (74-106)
[2023-07-11 05:06] LABS: Anion Gap 9 (5-15); BUN 22 mg/dL (7-18); BUN/Creat Ratio 6.2 RATIO (10-20); Chloride 116 mmol/L (98-107); Creatinine, Serum 3.52 mg/dL (0.70-1.30); EST Glomerular Filtration Rate 21 mL/min (>60); Est Glom Filt Rate - Afr Amer 26 mL/min (>60); Estimated Creatinine Clearance 23.99 ml/min; Glucose 250 mg/dL (74-106); Potassium 4.7 mmol/L (3.5-5.1); Sodium Level 142 mmol/L (136-145)
--- NOTE | 2023-07-11 06:44 | PN.HOSP_ITS ---
Reason for Visit Reason for Visit: Diagnoses Type 1 diabetes mellitus with hyperglycemia (07/08/23) Acidosis (07/08/23) Acute kidney failure, unspecified (07/08/23) Subjective Subjective Still some nausea and diarrhea, said he thinks he might of had some red and some dark in his stool, still nauseous but better able to control it, would be inter ested in advancing diet slightly to see how he tolerates this, feels swollen is the same but not worse, does still endorse he feels like he is urinating okay Objective Data Objective Data Vital Signs: Vital Signs Temp Pulse Resp BP Pulse Ox O2 Del Method O2 Flow Rate 97.4 F L 52 L 15 146/91 H 100 Room Air 2 07/11/23 05:00 07/11/23 05:00 07/11/23 05:00 07/11/23 05:00 07/11/23 05:00 07/11/23 05:00 07/08/23 22:00 Oxygen Flow Rate (L/min) 2 Oxygen Delivery Method Room Air Weight: 57.6 kg Body Mass Index (BMI) 19.8 Intake & Output: Intake and Output for Last 24 Hours 07/09/23 07/10/23 07/11/23 23:59 23:59 23:59 Intake Total 3992.98 / 4042.98 4765.07 / 4985.07 270 / 270 Output Total 300 / 450 150 / 150 Balance 3692.98 / 3592.98 4615.07 / 4835.07 270 / 270 Medical Nutrition Assessment Dietitian: Malnutrition Criteria Met Start: 07/09/23 11:55 Freq: Status: Active Protocol: Document 07/09/23 11:55 RMA (Rec: 07/09/23 11:55 RMA [id number]) Nutrition Malnutrition Evidence of Malnutrition Exists Yes Malnutrition (severe): Acute Illness/Injury,Chronic Evidenced By Suboptimal Energy Intake ( Severe),Weight Loss (Severe) Intake Problem Inadequate Oral Intake Etiology related to altered GI function /hyperglycemia Signs/Symptoms as evidenced by NPO/clear liquid diet x day 2 Status Active Problem Clinical Problem Chronic Disease or Condition Related Malnutrition Etiology related to inadequate oral intake, dietary noncompliance, altered GI function and hyperglycemia Signs/Symptoms as evidenced by unintentional weight loss ~5-7% x 1 month, BMI 20.2 and PO meeting less than 50% estimated nutrition needs x past 1 month Status Active Problem Recommendation Dietitian Recommendations/Changes Recommend advance diet as tolerated to 2000 calorie/ consistent carbohydrate. PO Glucerna Shake as diet advanced from clear liquids. Diet education as pt willing to receive. Lab / Micro Data 07/11/23 04:38 07/11/23 04:38 Labs: Laboratory Results - last 24 hr 07/08/23 07:53: Diff Path Review Reviewed 07/10/23 06:32: POC Glucose 96 07/10/23 07:34: POC Glucose 110 H 07/10/23 08:31: POC Glucose 135 H 07/10/23 08:40: Urine Color Straw, Urine Clarity Clear, Urine pH 6.0, Ur Specific Steele 1.010, Urine Protein 30 H, Urine Glucose (UA) 250 H, Urine Ketones 5 H, Urine Occult Blood 10 H, Urine Nitrite Negative, Urine Bilirubin Negative, Urine Urobilinogen Normal, Ur Leukocyte Esterase Negative, Urine RBC 0 SEEN, Urine WBC 0-5 SEEN, Ur Squamous Epith Cells 0-5 SEEN, Urine Bacteria 0 SEEN, Urine Mucus 0 SEEN, Urine Osmolality 297, Ur Random Sodium 46, Urine Potassium 32.0, Urine Chloride 55, Urine Urea Nitrogen 283 07/10/23 10:42: POC Glucose 173 H 07/10/23 13:03: POC Glucose 209 H 07/10/23 13:25: ESR 7, Sodium 141, Potassium 5.2 H, Chloride 116 H, Carbon Dioxide 18.0 L, Anion Gap 7, BUN 19 H, Creatinine 3.49 H, Estim Creat Clear Calc 24.19, Est GFR (MDRD) Af Amer 26 L, Est GFR (MDRD) Non-Af 21 L, BUN/Creatinine Ratio 5.4 L, Glucose 274 H, Calcium 7.9 L, Total Bilirubin 2.00 H, AST 294 H, ALT 64 H, Alkaline Phosphatase 177 H, Total Creatine Kinase 303, Total Protein 5.7 L, Albumin 2.6 L, Globulin 3.1, Albumin/Globulin Ratio 0.8 L, Amylase 38, Lipase 55 07/10/23 14:46: POC Glucose 355 H 07/10/23 17:13: POC Glucose 260 H 07/10/23 19:49: POC Glucose 155 H 07/10/23 22:30: POC Glucose 170 H 07/11/23 01:28: POC Glucose 264 H 07/11/23 04:34: POC Glucose 208 H 07/11/23 04:38: WBC 5.9, RBC 3.77 L, Hgb 11.7 L, Hct 36.0 L, MCV 95.5 H, MCH 31.0, MCHC 32.5, RDW Std Deviation 43.6, RDW Coeff of Nathaniel 12.5, Plt Count 176, MPV 9.7, Immature Gran % (Auto) 0.700, Neut % (Auto) 65.2, Lymph % (Auto) 21.0, [place] % (Auto) 10.2 H, Eos % (Auto) 2.4, Baso % (Auto) 0.5, Absolute Neuts (auto) 3.9, Absolute Lymphs (auto) 1.24, Nucleated RBC % 0, Sodium 142, Potassium 4.7, Chloride 116 H, Carbon Dioxide 17.0 L, Anion Gap 9, BUN 22 H, Creatinine 3.52 H, Estim Creat Clear Calc 23.99, Est GFR (MDRD) Af Amer 26 L, Est GFR (MDRD) Non-Af 21 L, BUN/Creatinine Ratio 6.2 L, Glucose 250 H, Calcium 8.0 L Micro: Microbiology 07/08/23 16:15 Urine, Clean Catch Urine Culture - Final Culture exhibits no growth. 07/09/23 18:55 Stool Enteric Bacteriology - Final 07/09/23 18:55 Stool Clostridioides difficile (PCR) - Final 07/08/23 12:21 Mucosa - Nose Respiratory Panel (PCR) - Final 07/08/23 08:30 Mucosa - Nasopharyngeal SARS-CoV-2, Influenza & RSV (PCR) - Final Radiography Diagnostic Testing: Radiology Impression Abdomen/Pelvis CT 07/10/23 11:07 IMPRESSION: * Findings compatible with fluid overload, including interstitial pulmonary edema, trace right pleural effusion, diffuse periportal edema, gallbladder wall edema and trace ascites. * There are couple punctate nonobstructive calculi in the right kidney. Electronically Signed: Esteban Cruz MD at 11:53 EST , Liver Ultrasound 07/10/23 15:28 IMPRESSION: No cholelithiasis or evidence of cholecystitis. As seen on the prior CT, there is edematous gallbladder wall thickening, and fluid in the gallbladder fossa related to the patient''s generalized fluid overloaded status. Electronically Signed: Esteban Cruz MD at 16:52 EST Reading Location ID and State: [address] [place] [address] Tel , Service support , Physical Exam Narrative General: Alert, oriented, no apparent distress HEENT: Atraumatic, normocephalic Eyes: Anicteric, normal conjunctiva, extraocular movements grossly intact Neck: Supple Respiratory: Clear to auscultation bilaterally, normal respiratory effort Cardiovascular: Regular rate and rhythm GI: Soft, no significant tenderness, no rebound, guarding, rigidity, nondistended Extremities: Look slightly edematous especially on arms and face but unchanged from yesterday evening Musculoskeletal: Moving all extremities Neuro: No overt focal neurological deficits Skin: No rashes appreciated Psych: More cooperative today Assessment & Plan Assessment/Plan (1) Acute kidney injury: (2) Diabetes mellitus type I: QUALIFIERS: Diabetes mellitus complication status: with hyperglycemia Qualified Code(s): E10.65 - Type 1 diabetes mellitus with hyperglycemia (3) Lactic acidosis: PLAN: Plan #Acute kidney failure -Creatinine 3.61 with a baseline around 1, aggressively hydrate -Improving with fluids -Patient profoundly volume depleted, if does not continue to improve can further investigate however given all cell lines increased as well as clinical picture and nausea and vomiting with poor p.o. suspect that this is related to volume depletion -07/09: Initially improved but is somewhat plateaued, creatinine 1.94 this a.m., will obtain kidney ultrasound and urine lytes -07/10: Kidney function had improved with fluids however started worsening subsequent fluids and nephrology was consulted and ordered further labs and CT, CT showed edema and multiple areas and fluids stopped, kidney function is further worsened, nephrology on board -07/11: Kidney function continue to worsen yesterday, fluids were stopped, kidney function roughly the same today as yesterday afternoon, based on I's and O's pa tient not 13.5 L however unclear if he has been compliant with I's and O's as it reports output of 450 total and he reports urinating normally, bladder was distended on kidney ultrasound however it was not clear what time he had tried to void prior to that, will obtain postvoid to see if patient retaining as bladder also distended on CT and this may explain initial improvement with subsequent worsening. Nephrology following, appreciate assistance # Hepatic and biliary congestion -Elevated liver enzymes and bili however left upper quadrant shows gallbladder edema consistent with patient's fluid overloaded state -Continue to follow liver panel -If patient develops any symptoms of acute cholecystitis will need to reevaluate but presently not having any right upper quadrant pain #Hyperglycemia in setting of type I diabetes -Patient with confounding acid-base picture -Patient with glucose of 212, BUN elevated at 36, anion gap of 23 but had normal bicarb and pH slightly alkalotic -Did have moderate acetone and elevated anion gap however -Suspect patient had profound contraction alkalosis as well as respiratory compensation given his low CO2 resulting in elevated pH -After aggressive fluid resuscitation anion gap still elevated at 20 and bicarb 18, suspect that correcting contraction alkalosis was revealing metabolic acidosis but VBG not obtained at the time so cannot confirm -Do suspect there is a mild component of DKA confounding picture -Glucose did increase to 371 and given gap and acetone patient was started on insulin drip -Additionally patient having nausea and vomiting and poor p.o., will need to monitor closely -Monitor I's and O's -BMP every 4 hours -When serum glucose is <250 mg/dl, change IV fluids to D5%1/2NS at 150 ml/hr and continue insulin drip as per nomogram -Aggressive fluid hydration -07/09: Acetone has been small, widely variable glucose, will transition to subcu insulin once patient tolerating p.o., had been hypokalemic so fluids adjusted -07/10: Patient taken off of fluids and D5, glucose checks and short acting subcu insulin, if patient is tolerating p.o. can transition with long-acting however patient not reliably taking p.o. at this time -07/11: Advance diet as tolerated, has only intermittently been tolerating clear liquids, will transition to long-acting subcu insulin when possible #Lactic acid elevation and leukocytosis -Patient with some vague complaints including cough, stuffy nose, sore throat -White blood cell count 19.4 with left shift on presentation green and patient profoundly volume depleted but has additional lactic acid elevation and slight elevation of Pro-Cem of 0.61 -Respiratory viral panel negative -Chest x-ray normal -Aggressively fluid resuscitate, given patient still with elevated heart rate, somewhat soft BP and increased lactic acid we will panculture and start on empiric antibiotics with plans to de-escalate if cultures negative but cannot rule out infection as cause or contributor at this time -07/09: Has been receiving IV fluids, awaiting cultures, continue empiric antibiotics today, all cell lines did decrease but does still have leukocytosis -07/10: Cultures no growth thus far, continue to monitor, patient on Zosyn -07/11: White blood cell count resolved, culture still no growth to date # Hypernatremia -Patient transition to D5 half-normal -07/10: Resolved on most recent draw #Cocaine positive UDS -Does not seem patient is on anything that would be false positive for this #DVT ppx: Heparin subcu Ninoska Welch MD Time spent in the patient's overall evaluation,decision-making process, review of diagnostic data, adjustment of management, discussion with other providers, nursing nursing and ancillary staff involved in patient's care documentation, 35 Minutes Capacity Legal Order Entry Technician Reflex Medical hold order details:: IF a medical hold is selected below, a suggested order for a MEDICAL HOLD will reflex upon signing the document. Next of kin: [place] law dictates a PRIORITY LIST for identifying legal decision-maker/legal next of kin in the following order (LNOK): 1st: The patient?s legal guardian, if any 2nd: The patient's spouse (if status is questionable, consult Risk Management) 3rd: The patient?s adult child(faustino) (majority, if multiple children) 4th: The patient?s parents 5th: The patient?s adult siblings (majority, if multiple children siblings) Charges/Coding Visit Charges Inpatient E&M: 94032 Subs Hosp L2
[2023-07-11 07:36] LABS: AST(SGOT) 118 U/L (15-37); Alanine Aminotransfer ALT/SGPT 52 U/L (16-61); Albumin, Serum 2.5 g/dL (3.2-5.0); Alkaline Phosphatase 170 U/L (45-117); Bilirubin, Direct 0.25 mg/dL (0.00-0.30); Globulin 2.9 g/dL (2.2-4.2); Protein, Total 5.4 g/dL (6.4-8.2)
[2023-07-11 08:17] LABS: Bedside Glucose 203 mg/dL (74-106)
[2023-07-11] MEDS: Pantoprazole Sodium 40 MG in 0.9% Normal Saline (100mL MB+) 100 ML 330 MG IV (10:15)
[2023-07-11] MEDS: Heparin Injection (Vial) 5,000 UNIT/ML VIAL 5000 UNIT SC ×2 (10:15→20:37)
[2023-07-11 11:30] LABS: Bedside Glucose 384 mg/dL (74-106)
--- OUTSIDE RECORDS SUMMARY | 2023-07-11 11:46 | XMS RPT_ITS | CCD ---
Author Name Unknown Address [address] [place] [address] Organization [facility] Care Team Providers Care Hardware Installer Name Role Phone Bella VILLEGAS, Daily Sexton Unavailable Melania Nuñez LPN Unavailable Unavailable Joaquin LUCERO, Melania Terry Unavailable Unavailable JOE MCKEON Unavailable Unavailable JOE MCKEON Unavailable Unavailable ALEXANDRE HUNT Unavailable Unavailable MCMORROW, TREVER Unavailable Unavailable RAGBEVNATJITENDRA, SAL Unavailable Unavailable Yobani Nuñez LPNia L Unavailable Unavailable Renea Krishna L Unavailable Melania Nuñez LPN L Unavailable Unavailable Yobani Nuñez LPNia L Unavailable Unavailable Alexandre Hunt MD Primary Care Provider [phone] ALEXANDRE HUNT Primary Care Unavailable SAMMIE DAWN [...] 97.5 [degF] Sammie Dawn APRN.CNP Work Phone: [facility] 05-23-2023 17:40-0500 Body weight 58.24 kg Sammie Dawn APRN.CNP Work Phone: [facility] 05-23-2023 17:40-0500 Diastolic blood pressure 62 mm[Hg] Sammie Dawn APRN.CNP Work Phone: [facility] 05-23-2023 17:40-0500 Heart rate 102 /min Sammie Dawn APRN.CORRESPONDENCE SPECIALIST Work Phone: [facility] 05-23-2023 17:40-0500 Respiratory rate 16 /min Sammie Dawn APRN.CORRESPONDENCE SPECIALIST Work Phone: [facility] 05-23-2023 17:40-0500 SaO2% (BldA) [Mass fraction] 98 % Sammie Dawn APRN.CORRESPONDENCE SPECIALIST Work Phone: [facility] 05-23-2023 17:40-0500 Systolic blood pressure 106 mm[Hg] Sammie Dawn APRN.CORRESPONDENCE SPECIALIST Work Phone: [facility] 04-24-2017 10:04-0400 BMI (Body Mass Index) 20.56 kg/m2 Melania Mays [facility] Work Phone: 04-24-2017 10:04-0400 Body Temperature 98.3 [degF] Melania Nuñez LPN [facility] Work Phone: 04-24-2017 10:04-0400 BP Diastolic 76 mm[Hg] Mealnia [facility] Work Phone: 04-24-2017 [...] 04-24-2017 10:04-0400 Weight 57.79 kg Melania Joaquin INVESTIGATION CLERK [facility] Work Phone: 04-08-2017 08:51-0400 BMI (Body Mass Index) 21.37 kg/m2 Melania Nuñez LPN [facility] Work Phone: 04-08-2017 08:51-0400 BP Diastolic 64 mm[Hg] Melania Nuñez LPN [facility] Work Phone: 04-08-2017 08:51-0400 BP Systolic 100 mm[Hg] Melania Nuñez LPN [facility] Work Phone: 04-08-2017 08:51-0400 Height 167.64 cm Melania Nuñez LPN [facility] Work Phone: 04-08-2017 08:51-0400 Pulse (Heart Rate) 88 /min Melania Nuñez LPN [facility] Work Phone: 04-08-2017 08:51-0400 Respiratory Rate 20 /min Melania Nuñez LPN [facility] Work Phone: 04-08-2017 08:51-0400 Weight 60.06 kg Melania Nuñez LPN [facility] Work Phone: 01-16-2017 08:22-0400 BMI (Body Mass Index) 21.5 kg/m2 Melania Nuñez LPN [facility] Work Phone: 01-16-2017 08:22-0400 Body Temperature 96.5 [degF] Melania Nuñez LPN [facility] Work Phone: 01-16-2017 08:22-0400 BP Diastolic 70 mm[Hg] Melania Nuñez LPN [facility] Work Phone: 01-16-2017 08:22-0400 BP Systolic 108 mm[Hg] Melania Nuñez LPN [facility] Work Phone: 01-16-2017 08:22-0400 [...] BP Diastolic 69 mm[Hg] Daily Bella VILLEGAS [facility] Work Phone: 10-17-2016 13:29-0400 BP Systolic 112 mm[Hg] Daily Shocarolee SENIOR CLINICAL RESEARCH SCIENTIST [facility] Work Phone: 10-17-2016 13:29-0400 Height 167.64 cm Daily Shocarolee VILLEGAS [facility] Work Phone: 10-17-2016 13:29-0400 Pulse (Heart Rate) 73 /min Daily Haneycarolee VILLEGAS [facility] Work Phone: 10-17-2016 13:29-0400 Pulse Oximetry 97 % Daily Shocarolee VILLEGAS [facility] Work Phone: 10-17-2016 13:29-0400 Respiratory Rate 16 /min Daily Shocarolee VILLEGAS [facility] Work Phone: 10-17-2016 13:29-0400 Weight 60.15 kg Daily Haneycarolee SENIOR CLINICAL RESEARCH SCIENTIST [facility] Work Phone: 08-01-2016 08:49-0500 BSA (Body Surface Area) 1.68 m2 Daily Blanco NP [facility] Work Phone: Encounters Encounter Date Encounter Type Care Provider Facility Start: 05-23-2023 End: 05-23-2023 ambulatory ALEXANDRE HUNT Facility:[facility] Start: 05-23-2023 End: 05-23-2023 Patient encounter procedure Sammie Dawn APRN.CNP Work Phone: [facility] Procedures Date Procedure Procedure Detail Performing Clinician Start: 05-08-2016 Colonoscopy Sammie Dawn APRN.CORRESPONDENCE SPECIALIST Work Phone: Plan of Treatment Date Care Activity Detail Author Start: 05-08-2026 Colonoscopy Colonoscopy [facility] Start: 05-08-2026 Colorectal Cancer Screening Colorectal Cancer Screening [facility] Start: 02-21-2023 Influenza vaccination Influenza Vaccine (#1) [facility] Start: 01-09-2018 3 comp foot exam completed Diabetic Foot Exam [facility] Start: 01-09-2018 Pneumococcal vaccination Pneumococcal Vaccine (2 - PCV) [facility] Start: 10-10-2017 Hepatitis B screening Urine Albumin:Creatinine Ratio [facility] Start: 10-10-2017 Hepatitis B surface antibody level LDL Cholesterol [facility] Start: 07-24-2017 End: 07-24-2017 Appointment Appointment [facility] Work Phone: Start: 07-08-2017 End: 07-08-2017 Appointment Appointment [facility] Work Phone: Start: 04-24-2017 End: 04-24-2017 *CMP Complete Metabolic Panel *CMP Complete Metabolic Panel [facility] Work Phone: Start: 04-24-2017 End: 04-24-2017 *Microalbumin, Creatine Ratio, rand urine *Microalbumin, Creatine Ratio, rand urine [facility] Work Phone: Start: 04-24-2017 End: 04-24-2017 Hemoglobin A1c/Hemoglobin.total mass fraction (Bld) *HgA1C [facility] Work Phone: Start: 04-24-2017 End: [...] 01-19-2017 Hemoglobin A1c/Hemoglobin.total mass fraction (Bld) *HgA1C [facility] Work Phone: Start: 01-16-2017 End: 01-19-2017 Lipid panel [AGGREGATE] *Lipid Profile [facility] Work Phone: Start: 01-16-2017 End: 01-16-2017 Appointment Appointment [facility] Work Phone: Start: 01-16-2017 End: 01-16-2017 Appointment Appointment [facility] Work Phone: Start: 01-16-2017 End: 01-19-2017 *CMP [...] Start: 01-09-2017 Hemoglobin A1c/Hemoglobin.total in Blood HbA1C [facility] Start: 08-01-2016 End: 08-02-2016 *CMP Complete Metabolic Panel *CMP Complete Metabolic Panel [facility] Work Phone: Start: 08-01-2016 End: 08-02-2016 *Microalbumin, Creatine Ratio, rand urine *Microalbumin, Creatine Ratio, rand urine [facility] Work Phone: Start: 08-01-2016 End: 08-02-2016 Hemoglobin A1c/Hemoglobin.total mass fraction (Bld) *HgA1C [facility] Work Phone: Start: 08-01-2016 End: 08-02-2016 Lipid panel [AGGREGATE] *Lipid Profile [facility] Work Phone: Start: 08-01-2016 End: 08-02-2016 Thyroid stimulating hormone (TSH) *TSH [facility] Work Phone: Start: 08-01-2016 End: 08-02-2016 *CMP Complete Metabolic Panel *CMP Complete Metabolic Panel [facility] Work Phone: Start: 08-01-2016 End: 08-02-2016 *Microalbumin, Creatine Ratio, rand urine *Microalbumin, Creatine Ratio, rand urine [facility] Work Phone: Start: 08-01-2016 End: 08-02-2016 HbA1c *HgA1C [facility] Work Phone: Start: 08-01-2016 End: 08-02-2016 Lipid panel [AGGREGATE] *Lipid Profile [facility] Work Phone: Start: 08-01-2016 End: 08-02-2016 Thyroid stimulating hormone (TSH) *TSH [facility] Work Phone: Start: 02-21-2016 Hepatitis C antibody, confirmatory test Dilated Retinal Exam [facility] Start: 2007 Urine microalbumin profile DTaP,Tdap,Td Vaccine (1 - Tdap) [facility] Start: 2006 Annual PCP Team Chronic Disease Visit Annual PCP Team Chronic Disease Visit [facility] Start: 2006 Hepatitis C Screening Hepatitis C Screening [facility] Start: 2006 HIV Screening HIV Screening [facility] Start: 05-06-2001 Hepatitis B Vaccine (3 of 3 - 3-dose series) Hepatitis B Vaccine (3 of 3 - 3-dose series) [facility] Start: 1988 Covid-19 Vaccine (#1) Covid-19 Vaccine (#1) [facility] Immunizations Immunization Date Immunization Notes Care Provider Fa madelyn 01-09-2017 pneumococcal polysaccharide vaccine, 23 valent Sammie Dawn APRN.CORRESPONDENCE SPECIALIST Work Phone: [facility] 07-11-2016 influenza virus vacc ine, unspecified formulation Sammie Dawn APRN.CORRESPONDENCE SPECIALIST Work Phone: [facility] 05-06-2007 influenza virus vacc ine, unspecified formulation Sammie Dawn APRN.CORRESPONDENCE SPECIALIST Work Phone: [facility] Work Phone: Payers Date Payer Category Payer Unknown [id number] 1990 Unknown [id number] Social History Date Type Detail Facility Start: 05-23-2023 Tobacco smoking stat [facility] Smokes tobacco daily [facility] History of tobacco use Cigarette Smoker C [facility] Start: 05-23-2023 Cigarettes smoked cu rrent (pack per day) - Reported 0.5 [facility] Start: 05-23-2023 Tobacco use and exposure Smoke less tobacco non-user [facility] Start: 05-23-2023 Alcohol intake Current non-dr endband sizer of alcohol (finding) [facility] Start: 05-23-2023 Tobacco use panel [facility] Start: 05-23-2023 Tobacco Comment as of 12/2015 s mokes 10 cigarettes a day [facility] Start: 1990 Sex Assigned At Not on file C [facility] Medical Equipment Procedure Code Equipment Code Equipment Origin al Text Equipment Identifier Dates Test blood sugar 4-5 times daily. Dx: diabetes type 1. Insulin: Yes Start: 08-24-2015 Progress note 05-23-2023 Note Date & Type Note Facility 05-23-2023 Note HNO ID: [id number] Author: Sammie Dawn APRN.JACKI Service: ? Author [...] Patient agreeable to treatment plan. Sammie Dawn APRN.[facility] History of Present illness Narrative 05-23-2023 Sammie Dawn APRN.[facility] - 05/23/2023 5:51 PM EST Note [...] Patient agreeable to treatment plan. Sammie Dawn APRN.CORRESPONDENCE SPECIALIST documented in this encounter [facility] Evaluation note Note Date & Type Note Facility documented in this encounter [facility] Summary Purpose Family History No Family History Records FoundNo Family History Records Found Advance Directives No Advanced Directives Records FoundNo Advanced Directives Records Found Additional Source Comments (unrecognized sect ion and content) No Status Records FoundNo Status Records Found INFORMATION SOURCE (unrecogn ized section and content) DATE CREATED AUTHOR AUTHOR'S ORGANIZ ATION 05/26/2023 [facility] Source Comments (unrecognize d section and content) In the event this informatio n is protected by the Federal Confidentiality of Alcohol and Drug Abuse Patient Records regulations: The Federal rules restrict any use of the information to criminally investigate or prosecute any alcohol or drug abuse patient.[facility] Reason for Visit (unrecogniz ed section [...] BE BASED ON THE PRIMARY CLINICAL RECORDS. [facility] listedplaces [facility]. provides no warranty or guarantee of the accuracy or completeness of information in this document.
--- NOTE | 2023-07-11 12:02 | PCM.PN.REN ---
Subjective Subjective Sitting in chair, no overnight events. Moved out of ICU. Mother and step-father at bedside. Patient states having some back pain. No vomiting. Objective Data Objective Data Vital Signs: Vital Signs Temp Pulse Resp BP Pulse Ox O2 Del Method O2 Flow Rate 97.8 F 63 12 136/91 H 100 Room Air 2 07/11/23 08:00 07/11/23 08:00 07/11/23 08:00 07/11/23 08:00 07/11/23 08:00 07/11/23 08:00 07/08/23 22:00 Oxygen Flow Rate (L/min) 2 Oxygen Delivery Method Room Air Weight: 57.6 kg Body Mass Index (BMI) 19.8 Intake & Output: Intake and Output for Last 24 Hours 07/09/23 07/10/23 07/11/23 23:59 23:59 23:59 Intake Total 3992.98 / 4042.98 4765.07 / 4985.07 520 / 520 Output Total 300 / 450 150 / 150 Balance 3692.98 / 3592.98 4615.07 / 4835.07 520 / 520 Medical Nutrition Assessment Dietitian: Malnutrition Criteria Met Start: 07/09/23 11:55 Freq: Status: Active Protocol: Document 07/09/23 11:55 RMA (Rec: 07/09/23 11:55 RMA [id number]) Nutrition Malnutrition Evidence of Malnutrition Exists Yes Malnutrition (severe): Acute Illness/Injury,Chronic Evidenced By Suboptimal Energy Intake ( Severe),Weight Loss (Severe) Intake Problem Inadequate Oral Intake Etiology related to altered GI function /hyperglycemia Signs/Symptoms as evidenced by NPO/clear liquid diet x day 2 Status Active Problem Clinical Problem Chronic Disease or Condition Related Malnutrition Etiology related to inadequate oral intake, dietary noncompliance, altered GI function and hyperglycemia Signs/Symptoms as evidenced by unintentional weight loss ~5-7% x 1 month, BMI 20.2 and PO meeting less than 50% estimated nutrition needs x past 1 month Status Active Problem Recommendation Dietitian Recommendations/Changes Recommend advance diet as tolerated to 2000 calorie/ consistent carbohydrate. PO Glucerna Shake as diet advanced from clear liquids. Diet education as pt willing to receive. Lab / Micro Data 07/11/23 04:38 07/11/23 04:38 Labs: Laboratory Results - last 24 hr 07/10/23 08:40: Urine Color Straw, Urine Clarity Clear, Urine pH 6.0, Ur Specific [place] 1.010, Urine Protein 30 H, Urine Glucose (UA) 250 H, Urine Ketones 5 H, Urine Occult Blood 10 H, Urine Nitrite Negative, Urine Bilirubin Negative, Urine Urobilinogen Normal, Ur Leukocyte Esterase Negative, Urine RBC 0 SEEN, Urine WBC 0-5 SEEN, Ur Squamous Epith Cells 0-5 SEEN, Urine Bacteria 0 SEEN, Urine Mucus 0 SEEN 07/10/23 13:03: POC Glucose 209 H 07/10/23 13:25: ESR 7, Sodium 141, Potassium 5.2 H, Chloride 116 H, Carbon Dioxide 18.0 L, Anion Gap 7, BUN 19 H, Creatinine 3.49 H, Estim Creat Clear Calc 24.19, Est GFR (MDRD) Af Amer 26 L, Est GFR (MDRD) Non-Af 21 L, BUN/Creatinine Ratio 5.4 L, Glucose 274 H, Calcium 7.9 L, Total Bilirubin 2.00 H, AST 294 H, ALT 64 H, Alkaline Phosphatase 177 H, Total Creatine Kinase 303, Total Protein 5.7 L, Albumin 2.6 L, Globulin 3.1, Albumin/Globulin Ratio 0.8 L, Amylase 38, Lipase 55 07/10/23 14:46: POC Glucose 355 H 07/10/23 17:13: POC Glucose 260 H 07/10/23 19:49: POC Glucose 155 H 07/10/23 22:30: POC Glucose 170 H 07/11/23 01:28: POC Glucose 264 H 07/11/23 04:34: POC Glucose 208 H 07/11/23 04:38: WBC 5.9, RBC 3.77 L, Hgb 11.7 L, Hct 36.0 L, MCV 95.5 H, MCH 31.0, MCHC 32.5, RDW Std Deviation 43.6, RDW Coeff of Nathaniel 12.5, Plt Count 176, MPV 9.7, Immature Gran % (Auto) 0.700, Neut % (Auto) 65.2, Lymph % (Auto) 21.0, [place] % (Auto) 10.2 H, Eos % (Auto) 2.4, Baso % (Auto) 0.5, Absolute Neuts (auto) 3.9, Absolute Lymphs (auto) 1.24, Nucleated RBC % 0, Sodium 142, Potassium 4.7, Chloride 116 H, Carbon Dioxide 17.0 L, Anion Gap 9, BUN 22 H, Creatinine 3.52 H, Estim Creat Clear Calc 23.99, Est GFR (MDRD) Af Amer 26 L, Est GFR (MDRD) Non-Af 21 L, BUN/Creatinine Ratio 6.2 L, Glucose 250 H, Calcium 8.0 L, Total Bilirubin 1.20 H, Direct Bilirubin 0.25, AST 118 H, ALT 52, Alkaline Phosphatase 170 H, Total Protein 5.4 L, Albumin 2.5 L, Globulin 2.9 07/11/23 07:50: POC Glucose 203 H 07/11/23 11:04: POC Glucose 384 H Micro: Microbiology 07/08/23 16:15 Urine, Clean Catch Urine Culture - Final Culture exhibits no growth. 07/09/23 18:55 Stool Enteric Bacteriology - Final 07/09/23 18:55 Stool Clostridioides difficile (PCR) - Final 07/08/23 12:21 Mucosa - Nose Respiratory Panel (PCR) - Final 07/08/23 08:30 Mucosa - Nasopharyngeal SARS-CoV-2, Influenza & RSV (PCR) - Final Radiography Diagnostic Testing: Radiology Impression Liver Ultrasound 07/10/23 15:28 IMPRESSION: No cholelithiasis or evidence of cholecystitis. As seen on the prior CT, there is edematous gallbladder wall thickening, and fluid in the gallbladder fossa related to the patient''s generalized fluid overloaded status. Electronically Signed: Esteban Cruz MD at 16:52 EST Reading Location ID and State: [address] [place] [address] Tel , Service support , Physical Exam Narrative Alert orient x 3, no apparent distress S1, S2, RRR Lung sounds clear anteriorly and posteriorly Abdomen soft, positive bowel sounds, nontender Trace edema bilateral lower legs and feet Assessment & Plan Assessment/Plan (1) Acute kidney injury: PLAN: 33-year-old male with past medical history significant for diabetes mellitus type 1, GERD, anxiety who presented [facility] 07/08 secondary nausea, malaise, feeling unwell. Admitted for mild DKA, and MIREILLE. Nephrology consulted in view of rising Serum Creatinine. - Nonoliguric, initially mildly hypovolemic [place] with baseline serum creatinine around 1 mg/dL. Admitted on 07/08 with serum creatinine 3.61, improved later in the day on 07/08 to 1.66mg/dL. Patient received aggressive fluid resuscitation on admission. Serum creatinine then began to rise on 07/09, his creatinine was 3.49 mg/dL and today creatinine 3.52 mg/dL. Hopefully serum creatinine is beginning to plateau and level off. There is no acute indication for DEPUTY FIRE CHIEF. Potassium and acid-base acceptable. Patient is nonoliguric. MIREILLE pre-renal secondary to ischemic ATN. Ultrasound no hydronephrosis but did show distended bladder. CT of abdomen and pelvis findings compatible with fluid overload including interstitial pulmonary edema, pleural effusion and trace ascites. Will start Lasix 40 mg IV twice daily. BPs acceptable. Checking bladder postvoid residual today. Reviewed with patient, his mother and stepfather who is at bedside importance of good glycemic control on kidney health. Reviewed importance of avoiding NSAIDs. Amylase and lipase are normal. Labs ordered for am. Discussed nephrology plan with Dr. Welch
[2023-07-11] MEDS: Furosemide 40 MG/4 ML Vial IV ×2 (14:50→20:37)
[2023-07-11] MEDS: Insulin Glargine-YFGN 100 UNIT/ML Pen 12 UNIT SC (17:40)
[2023-07-11 17:43] LABS: Bedside Glucose 490 mg/dL (74-106)
[2023-07-11 17:49] LABS: Bedside Glucose 360 mg/dL (74-106)
[2023-07-11 20:58] LABS: Bedside Glucose 319 mg/dL (74-106)
[2023-07-12 03:00] VITALS: BP 125/81; PULSE 60; RESP 16; TEMP 37.1; O2SAT 100
[2023-07-12 05:32] VITALS: BMI 20.5
[2023-07-12] MEDS: Piperacil/Tazobactam 3.375 GM in 0.9% Normal Saline (50mL MB+) 50 ML IV (05:55)
[2023-07-12] MEDS: Insulin Lispro 100 UNIT/ML INSULN.PEN SC ×2 (05:55→11:17)
[2023-07-12 06:42] LABS: Absolute Lymphocyte Count 1.51 X10^3/uL (0.83-4.51); Absolute Neutrophil Count 2.4 X10^3/uL (2.0-7.7); Basophil# 0.05 X10^3/uL; Basophil% 1.1 % (0-1); Eosinophil# 0.11 X10^3/uL; Eosinophils% 2.4 % (0-5); Hematocrit 35.7 % (40-54); Hemoglobin 12.4 g/dL (13.0-16.5); Lymphocyte # 1.51 X10^3/ul (0.83-4.51); Mean Corp Hgb Conc 34.7 g/dL (32-36); Mean Corpuscular Hgb 32.2 pg (27.0-32.0); Mean Corpuscular Volume 92.7 fL (80-94); Mean Platelet Vol. 9.5 fl (6.2-12.0); Monocyte# 0.49 X10^3/uL; Monocyte% 10.7 % (0-10); NRBC Flagged by Analyzer 0 % (0-5); Neutrophil # 2.39 X10^3/uL (2.7-7.7); Neutrophil % 52.4 % (47-70); Platelet Count 176 K/mm3 (150-450); RBC Distribution Width CV 11.9 % (11.6-14.6); RBC Distribution Width SD 41.1 fl (35.1-43.9); Red Blood Count 3.85 M/mm3 (4.6-6.2); White Blood Count 4.6 K/mm3 (4.4-11.0)
[2023-07-12 06:50] LABS: Bedside Glucose 212 mg/dL (74-106)
[2023-07-12 07:14] LABS: ALB/GLOB Ratio 0.8 RATIO (0.9-2.4); AST(SGOT) 42 U/L (15-37); Alanine Aminotransfer ALT/SGPT 36 U/L (16-61); Albumin, Serum 2.6 g/dL (3.2-5.0); Alkaline Phosphatase 173 U/L (45-117); Anion Gap 8 (5-15); BUN 22 mg/dL (7-18); BUN/Creat Ratio 6.7 RATIO (10-20); Calcium,Total 9.2 mg/dL (8.5-10.1); Chloride 106 mmol/L (98-107); Creatinine, Serum 3.27 mg/dL (0.70-1.30); EST Glomerular Filtration Rate 23 mL/min (>60); Est Glom Filt Rate - Afr Amer 28 mL/min (>60); Estimated Creatinine Clearance 26.45 ml/min; Globulin 3.2 g/dL (2.2-4.2); Glucose 281 mg/dL (74-106); Potassium 3.6 mmol/L (3.5-5.1); Protein, Total 5.8 g/dL (6.4-8.2); Sodium Level 139 mmol/L (136-145)
--- NOTE | 2023-07-12 08:14 | PCM.PN.HOSP ---
Reason for Visit Reason for Visit: Diagnoses Type 1 diabetes mellitus with hyperglycemia (07/08/23) Acidosis (07/08/23) Acute kidney failure, unspecified (07/08/23) Objective Data Objective Data Vital Signs: Vital Signs Temp Pulse Resp BP Pulse Ox O2 Del Method O2 Flow Rate 98.8 F 60 16 125/81 H 100 Room Air 2 07/12/23 03:00 07/12/23 03:00 07/12/23 03:00 07/12/23 03:00 07/12/23 03:00 07/12/23 03:00 07/08/23 22:00 Oxygen Flow Rate (L/min) 2 Oxygen Delivery Method Room Air Weight: 59.3 kg Body Mass Index (BMI) 20.5 Intake & Output: Intake and Output for Last 24 Hours 07/10/23 07/11/23 07/12/23 23:59 23:59 23:59 Intake Total 4765.07 / 4985.07 1500 / 1740 530 / 530 Output Total 150 / 150 900 / 1300 1600 / 1600 Balance 4615.07 / 4835.07 600 / 440 -1070 / -1070 Medical Nutrition Assessment Dietitian: Malnutrition Criteria Met Start: 07/09/23 11:55 Freq: Status: Active Protocol: Document 07/09/23 11:55 RMA (Rec: 07/09/23 11:55 RMA [id number]) Nutrition Malnutrition Evidence of Malnutrition Exists Yes Malnutrition (severe): Acute Illness/Injury,Chronic Evidenced By Suboptimal Energy Intake ( Severe),Weight Loss (Severe) Intake Problem Inadequate Oral Intake Etiology related to altered GI function /hyperglycemia Signs/Symptoms as evidenced by NPO/clear liquid diet x day 2 Status Active Problem Clinical Problem Chronic Disease or Condition Related Malnutrition Etiology related to inadequate oral intake, dietary noncompliance, altered GI function and hyperglycemia Signs/Symptoms as evidenced by unintentional weight loss ~5-7% x 1 month, BMI 20.2 and PO meeting less than 50% estimated nutrition needs x past 1 month Status Active Problem Recommendation Dietitian Recommendations/Changes Recommend advance diet as tolerated to 2000 calorie/ consistent carbohydrate. PO Glucerna Shake as diet advanced from clear liquids. Diet education as pt willing to receive. Lab / Micro Data 07/12/23 06:17 07/12/23 06:17 Labs: Laboratory Results - last 24 hr 07/11/23 07:50: POC Glucose 203 H 07/11/23 11:04: POC Glucose 384 H 07/11/23 14:23: POC Glucose 490 H* 07/11/23 17:29: POC Glucose 360 H 07/11/23 20:36: POC Glucose 319 H 07/12/23 05:28: POC Glucose 212 H 07/12/23 06:17: WBC 4.6, RBC 3.85 L, Hgb 12.4 L, Hct 35.7 L, MCV 92.7, MCH 32.2 H, MCHC 34.7 D, RDW Std Deviation 41.1, RDW Coeff of Nathaniel 11.9, Plt Count 176, MPV 9.5, Immature Gran % (Auto) 0.400, Neut % (Auto) 52.4, Lymph % (Auto) 33.0, [place] % (Auto) 10.7 H, Eos % (Auto) 2.4, Baso % (Auto) 1.1 H, Absolute Neuts (auto) 2.4, Absolute Lymphs (auto) 1.51, Nucleated RBC % 0, Sodium 139, Potassium 3.6, Chloride 106, Carbon Dioxide 25.0, Anion Gap 8, BUN 22 H, Creatinine 3.27 H, Estim Creat Clear Calc 26.45, Est GFR (MDRD) Af Amer 28 L, Est GFR (MDRD) Non-Af 23 L, BUN/Creatinine Ratio 6.7 L, Glucose 281 H, Calcium 9.2, Total Bilirubin 1.00, AST 42 H, ALT 36, Alkaline Phosphatase 173 H, Total Protein 5.8 L, Albumin 2.6 L, Globulin 3.2, Albumin/Globulin Ratio 0.8 L Micro: Microbiology 07/11/23 13:41 Stool Stool Occult Blood (LIANNA) - Final 07/08/23 16:15 Urine, Clean Catch Urine Culture - Final Culture exhibits no growth. 07/09/23 18:55 Stool Enteric Bacteriology - Final 07/09/23 18:55 Stool Clostridioides difficile (PCR) - Final 07/08/23 12:21 Mucosa - Nose Respiratory Panel (PCR) - Final 07/08/23 08:30 Mucosa - Nasopharyngeal SARS-CoV-2, Influenza & RSV (PCR) - Final Assessment & Plan Assessment/Plan (1) Acute kidney injury: (2) Diabetes mellitus type I: QUALIFIERS: Diabetes mellitus complication status: with hyperglycemia Qualified Code(s): E10.65 - Type 1 diabetes mellitus with hyperglycemia (3) Lactic acidosis: PLAN: Plan #Acute kidney failure -Creatinine 3.61 with a baseline around 1, aggressively hydrate -Improving with fluids -Patient profoundly volume depleted, if does not continue to improve can further investigate however given all cell lines increased as well as clinical picture and nausea and vomiting with poor p.o. suspect that this is related to volume depletion -07/09: Initially improved but is somewhat plateaued, creatinine 1.94 this a.m., will obtain kidney ultrasound and urine lytes -07/10: Kidney function had improved with fluids however started worsening subsequent fluids and nephrology was consulted and ordered further labs and CT, CT showed edema and multiple areas and fluids stopped, kidney function is further worsened, nephrology on board -07/11: Kidney function continue to worsen yesterday, fluids were stopped, kidney function roughly the same today as yesterday afternoon, based on I's and O's patient not 13.5 L however unclear if he has been compliant with I's and O's as it reports output of 450 total and he reports urinating normally, bladder was distended on kidney ultrasound however it was not clear what time he had tried to void prior to that, will obtain postvoid to see if patient retaining as bladder also distended on CT and this may explain initial improvement with subsequent worsening. Nephrology following, appreciate assistance -07/12: Improving, was not retaining urine, nephrology following, on Lasix # Hepatic and biliary congestion -Elevated liver enzymes and bili however left upper quadrant shows gallbladder edema consistent with patient's fluid overloaded state -Continue to follow liver panel -If patient develops any symptoms of acute cholecystitis will need to reevaluate but presently not having any right upper quadrant pain -07/12: Continues to improve #Hyperglycemia in setting of type I diabetes -Patient with confounding acid-base picture -Patient with glucose of 212, BUN elevated at 36, anion gap of 23 but had normal bicarb and pH slightly alkalotic -Did have moderate acetone and elevated anion gap however -Suspect patient had profound contraction alkalosis as well as respiratory compensation given his low CO2 resulting in elevated pH -After aggressive fluid resuscitation anion gap still elevated at 20 and bicarb 18, suspect that correcting contraction alkalosis was revealing metabolic acidosis but VBG not obtained at the time so cannot confirm -Do suspect there is a mild component of DKA confounding picture -Glucose did increase to 371 and given gap and acetone patient was started on insulin drip -Additionally patient having nausea and vomiting and poor p.o., will need to monitor closely -Monitor I's and O's -BMP every 4 hours -When serum glucose is <250 mg/dl, change IV fluids to D5%1/2NS at 150 ml/hr and continue insulin drip as per nomogram -Aggressive fluid hydration -07/09: Acetone has been small, widely variable glucose, will transition to subcu insulin once patient tolerating p.o., had been hypokalemic so fluids adjusted -07/10: Patient taken off of fluids and D5, glucose checks and short acting subcu insulin, if patient is tolerating p.o. can transition with long-acting however patient not reliably taking p.o. at this time -07/11: Advance diet as tolerated, has only intermittently been tolerating clear liquids, will transition to long-acting subcu insulin when possible -07/12: On transitional diet, started subcu insulin, continue as needed medication #Lactic acid elevation and leukocytosis -Patient with some vague complaints including cough, stuffy nose, sore throat -White blood cell count 19.4 with left shift on presentation green and patient profoundly volume depleted but has additional lactic acid elevation and slight elevation of Pro-Cem of 0.61 -Respiratory viral panel negative -Chest x-ray normal -Aggressively fluid resuscitate, given patient still with elevated heart rate, somewhat soft BP and increased lactic acid we will panculture and start on empiric antibiotics with plans to de-escalate if cultures negative but cannot rule out infection as cause or contributor at this time -07/09: Has been receiving IV fluids, awaiting cultures, continue empiric antibiotics today, all cell lines did decrease but does still have leukocytosis -07/10: Cultures no growth thus far, continue to monitor, patient on Zosyn -07/11: White blood cell count resolved, culture still no growth to date -07/12: Culture strep with today # Hypernatremia?resolved -Patient transition to D5 half-normal -07/10: Resolved on most recent draw #Cocaine positive UDS -Does not seem patient is on anything that would be false positive for this #DVT ppx: Heparin subcu Ninoska Welch MD Time spent in the patient's overall evaluation,decision-making process, review of diagnostic data, adjustment of management, discussion with other providers, nursing nursing and ancillary staff involved in patient's care documentation, 35 Minutes Charges/Coding Visit Charges Inpatient E&M: 99044 Subs Hosp L2
[2023-07-12] MEDS: Pantoprazole Sodium 40 MG in 0.9% Normal Saline (100mL MB+) 100 ML 330 MG IV (10:49)
[2023-07-12] MEDS: Furosemide 40 MG/4 ML Vial IV (10:50)
[2023-07-12] MEDS: Heparin Injection (Vial) 5,000 UNIT/ML VIAL 5000 UNIT SC (10:50)
[2023-07-12] MEDS: Insulin Glargine-YFGN 100 UNIT/ML Pen 12 UNIT SC (11:16)
[2023-07-12 11:21] VITALS: BP 137/87; PULSE 50; RESP 16; TEMP 36.7; O2SAT 98
[2023-07-12 11:55] LABS: Bedside Glucose 272 mg/dL (74-106)
--- NOTE | 2023-07-12 12:03 | PCM.DC ---
Discharge Instructions Diet Discharge Diet: Carb Control Diet Activity Discharge Activity: Return to Normal Activity Return to work on:: 07/16/23 Follow Up Care Test Results: Test results from this visit will be discussed in further detail at your follow-up appointment, if applicable. 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 If you do not hear from their office in 1-2 business days please call their office to schedule hospital follow-up appointment upon discharge. -Would recommend lab work (BMP) to check your kidney function in 2 to 3 days through your primary care physician's office. Please call their office upon discharge to obtain order for lab work. -Please call your primary care provider's office upon discharge to schedule a hospital follow up within 1 week. -For any concerning signs or symptoms please call 911 or proceed to the nearest emergency department Discharge Orders/Prescriptions Prescriptions: New amoxicillin-pot clavulanate 875-125 mg tablet 1 tab PO BID 3 Days Qty: 6 0RF Continued insulin aspart U-100 [Novolog FlexPen U-100 Insulin] 100 unit/mL (3 mL) insulin pen 12 unit subcut TIDCM No Action (DME) FreeStyle Celena 2 [place] Misc See Rx Instructions .ROUTE .MEDSUPPLY Qty: 1 0RF Rx Instructions: As directed (DME) FreeStyle Celena 2 Sensor Kit See Rx Instructions .ROUTE .MEDSUPPLY Qty: 2 8RF Rx Instructions: 1 sensor q 14 days Referrals / Follow Up: Alexandre Katz MD [Primary Care Provider] - Within 1 Week Kalyani Hampton MD [Med Staff - Consulting] - ( -Please follow-up with nephrology upon discharge. If you do not hear from the office in 1-2 business days please call their office to schedule hospital follow-up appointment upon discharge.) Disposition Disposition (needs filled in before D/C Order can be placed): Home, Self Care
--- NOTE | 2023-07-12 12:14 | DS.PCM_ITS ---
Providers Date of Admission: 07/08/23 Date of Discharge: 07/12/23 Primary Care Physician: Dr. Alexandre Katz MD Consultations 07/10/23 06:43 Consult: Nephrology Routine Consulting Provider: Kalyani Hampton Reason for Consult: worsening kidney function EMERGENT Consult: No MD Notified: Yes Date Notified: 07/10/23 Time Notified: 07:05 Method of Notification: Answering Service Reason For Visit: KIDNEY FAILURE, DKA Diagnosis Discharge Diagnosis (1) Acute kidney injury: Status: Acute Code(s): N17.9 - Acute kidney failure, unspecified (2) Diabetes mellitus type I: Status: Chronic Qualifiers: Diabetes mellitus complication status: with hyperglycemia Qualified Code(s): E10.65 - Type 1 diabetes mellitus with hyperglycemia (3) Lactic acidosis: Status: Acute Code(s): E87.2 - Acidosis Plan #Acute kidney failure and edema- improving # Hepatic and biliary congestion- improving #Hyperglycemia in setting of type I diabetes #Lactic acid elevation and leukocytosis # Hypernatremia- resolved #Cocaine positive UDS -Does not seem patient is on anything that would be false positive for this Medications at Discharge Home Medications flash glucose scanning reader (FreeStyle Celena 2 [place]) #1 ea 08/18/20 flash glucose sensor (FreeStyle Celena 2 Sensor kit) #2 ea 02/19/23 insulin aspart U-100 100 unit/mL (3 mL) subcutaneous pen (Novolog FlexPen U-100 Insulin aspart) 12 unit subcut TIDCM DIABETES 07/08/23 amoxicillin 875 mg-potassium clavulanate 125 mg tablet 1 tab PO BID 3 days #6 tabs 07/12/23 Hospital Course Summary of Care Provided Minutes Spent on Discharge: 35 Hospital Course: HANS GONZALEZ, is a 33M hx GERD, DMI, anxiety, tobacco use who presented to [facility] 07/08/2023 due to general malaise and nausea. He had been feeling unwell for about 3 to 4 days with poor p.o. intake and some blurry vision as well as some chills with no fever. Additionally has had little bit of nasal congestion and sore throat as well as nonproductive cough, has been having nausea and has been unable to keep anything down and given patient is generally not doing well he was brought to the emergency department. In the ED patient initially tachycardic with heart rate in 140s with blood pressure 94/55 respiratory rate of 30, found to be hemoconcentrated with white blood cell count of 19.4, hemoglobin 17, platelet count 581 and patient with BUN of 36 and creatinine of 3.61 up from baseline of around 1, his bicarb was normal but his anion gap was 23, blood glucose 212 and he had a VBG which showed a pH of 7.46, HCO3 of 20 and CO2 of 21 with moderate acetone. Hospitalist contacted for admission. Patient had multifaceted acid-base picture with an anion gap of 23 and glucose of 212 but initially normal bicarb and pH slightly alkalotic however patient with significant volume contraction with suspected contraction alkalosis and he also had moderate acetone. He was started on insulin drip to titrate to gap closure and patient aggressively fluid resuscitated. As p.o. improved patient was transition to long-acting insulin. During his hospitalization he also had some vague infectious complaints including cough, nasal congestion, sore throat and did have nausea and vomiting. He had an elevated white blood cell count, Pro-Cem, lactic acid and improved with IV fluids, antibiotics, supportive care. Did have a kidney ultrasound which showed some perinephric stranding but cultures overall no growth to date however patient had convincing criteria for infection so plan was discharged to complete course of Augmentin. During his hospitalization he also had significant MIREILLE on presentation that improved initially with IV fluids however began to worsen again despite fluid resuscitation. Nephrology consulted, CT scan showed anasarca and IV fluids stopped and patient started on IV Lasix and improved. Kidney function improving and on day of discharge patient reports he is eating well, nausea is gone, he has been up ambulating and overall feeling well and would like to go home, discussed with nephrology and it was felt it was reasonable to do so and follow- up on an outpatient basis. Discharge instructions as followed: -Resume your home insulin regimen and follow-up with your finger buff sewer -You will be discharged on Augmentin 875 mg twice daily for 3 more days with first dose tonight -Please follow-up with nephrology upon discharge. If you do not hear from their office in 1-2 business days please call their office to schedule hospital follow-up appointment upon discharge. -Would recommend lab work (BMP) to check your kidney function in 2 to 3 days through your primary care physician's office. Please call their office upon discharge to obtain order for lab work. -Please call your primary care provider's office upon discharge to schedule a hospital follow up within 1 week. -For any concerning signs or symptoms please call 911 or proceed to the nearest emergency department Physical Exam Narrative General: Alert, oriented, no apparent distress HEENT: Atraumatic, normocephalic Eyes: Anicteric, normal conjunctiva, extraocular movements grossly intact Neck: Supple Respiratory: Clear to auscultation bilaterally, normal respiratory effort Cardiovascular: Regular rate and rhythm GI: Soft, no tenderness, no rebound, guarding, rigidity, nondistended Extremities: Less edematous Musculoskeletal: Moving all extremities Neuro: No overt focal neurological deficits Skin: No rashes appreciated Psych: More cooperative today Medical Records Data Medical Nutrition Assessment Dietitian: Malnutrition Criteria Met Start: 07/09/23 11:55 Freq: Status: Active Protocol: Document 07/09/23 11:55 RMA (Rec: 07/09/23 11:55 RMA [id number]) Nutrition Malnutrition Evidence of Malnutrition Exists Yes Malnutrition (severe): Acute Illness/Injury,Chronic Evidenced By Suboptimal Energy Intake ( Severe),Weight Loss (Severe) Intake Problem Inadequate Oral Intake Etiology related to altered GI function /hyperglycemia Signs/Symptoms as evidenced by NPO/clear liquid diet x day 2 Status Active Problem Clinical Problem Chronic Disease or Condition Related Malnutrition Etiology related to inadequate oral intake, dietary noncompliance, altered GI function and hyperglycemia Signs/Symptoms as evidenced by unintentional weight loss ~5-7% x 1 month, BMI 20.2 and PO meeting less than 50% estimated nutrition needs x past 1 month Status Active Problem Recommendation Dietitian Recommendations/Changes Recommend advance diet as tolerated to 2000 calorie/ consistent carbohydrate. PO Glucerna Shake as diet advanced from clear liquids. Diet education as pt willing to receive. Weight / BMI Weight Weight: 59.3 kg Body Mass Index (BMI) 20.5 ABG / Lab / Microbiology Data 07/12/23 06:17 07/12/23 06:17 Laboratory: Laboratory Results - last 24 hr 07/11/23 14:23: POC Glucose 490 H* 07/11/23 17:29: POC Glucose 360 H 07/11/23 20:36: POC Glucose 319 H 07/12/23 05:28: POC Glucose 212 H 07/12/23 06:17: WBC 4.6, RBC 3.85 L, Hgb 12.4 L, Hct 35.7 L, MCV 92.7, MCH 32.2 H, MCHC 34.7 D, RDW Std Deviation 41.1, RDW Coeff of Nathaniel 11.9, Plt Count 176, M PV 9.5, Immature Gran % (Auto) 0.400, Neut % (Auto) 52.4, Lymph % (Auto) 33.0, [place] % (Auto) 10.7 H, Eos % (Auto) 2.4, Baso % (Auto) 1.1 H, Absolute Neuts (auto) 2.4, Absolute Lymphs (auto) 1.51, Nucleated RBC % 0, Sodium 139, Potassium 3.6, Chloride 106, Carbon Dioxide 25.0, Anion Gap 8, BUN 22 H, Creatinine 3.27 H, Estim Creat Clear Calc 26.45, Est GFR (MDRD) Af Amer 28 L, Est GFR (MDRD) Non-Af 23 L, BUN/Creatinine Ratio 6.7 L, Glucose 281 H, Calcium 9.2, Total Bilirubin 1.00, AST 42 H, ALT 36, Alkaline Phosphatase 173 H, Total Protein 5.8 L, Albumin 2.6 L, Globulin 3.2, Albumin/Globulin Ratio 0.8 L 07/12/23 11:14: POC Glucose 272 H Microbiology: Microbiology 07/11/23 13:41 Stool Stool Occult Blood (LIANNA) - Final 07/08/23 16:15 Urine, Clean Catch Urine Culture - Final Culture exhibits no growth. 07/09/23 18:55 Stool Enteric Bacteriology - Final 07/09/23 18:55 Stool Clostridioides difficile (PCR) - Final 07/08/23 12:21 Mucosa - Nose Respiratory Panel (PCR) - Final 07/08/23 08:30 Mucosa - Nasopharyngeal SARS-CoV-2, Influenza & RSV (PCR) - Final D/C Instructions Discharge Diet: Carb Control Diet Return to work on: 07/16/23 Meaningful Use Info Meaningful Use Diagnoses (Choose all that apply): None applicable Discharge Plan Admission Admit Date/Time: 07/08/23 10:54 Primary Reason for Your Visit: Nausea, generally feeling unwell Attending Provider: Ninoska Welch Primary Care Provider: Alexandre Katz Consulting Providers: Kalyani Hampton Instructions Patient Instructions: Diabetes and Kidney Disease Additional Instructions / Restrictions: DISCHARGE INSTRUCTIONS PLEASE READ *Please take this with you to your next doctors appointment* -Resume your home insulin regimen and follow-up with your finger buff sewer -You will be discharged on Augmentin 875 mg twice daily for 3 more days with first dose tonight -Please follow-up with nephrology upon discharge. If you do not hear from their office in 1-2 business days please call their office to schedule hospital follow-up appointment upon discharge. -Would recommend lab work (BMP) to check your kidney function in 2 to 3 days through your primary care physician's office. Please call their office upon discharge to obtain order for lab work. -Please call your primary care provider's office upon discharge to schedule a hospital follow up within 1 week. -For any concerning signs or symptoms please call 911 or proceed to the nearest emergency department Discharge Orders/Prescriptions Prescriptions: New amoxicillin-pot clavulanate 875-125 mg tablet 1 tab PO BID 3 Days Qty: 6 0RF Continued insulin aspart U-100 [Novolog FlexPen U-100 Insulin] 100 unit/mL (3 mL) insulin pen 12 unit subcut TIDCM No Action (DME) FreeStyle Celena 2 [place] Misc See Rx Instructions .ROUTE .MEDSUPPLY Qty: 1 0RF Rx Instructions: As directed (DME) FreeStyle Celena 2 Sensor Kit See Rx Instructions .ROUTE .MEDSUPPLY Qty: 2 8RF Rx Instructions: 1 sensor q 14 days Referrals / Follow Up: Alexandre Katz MD [Primary Care Provider] - Within 1 Week Kalyani Hampton MD [Med Staff - Consulting] - ( -Please follow-up with nephrology upon discharge. If you do not hear from the office in 1-2 business days please call their office to schedule hospital follow-up appointment upon discharge.) Disposition Disposition (needs filled in before D/C Order can be placed): Home, Self Care Charges/Coding Visit Charges Inpatient E&M: 34911 Disch Hosp >30min
== END 2023-07-12 14:17 | disposition home or self-care (01) | DRG 682 ==
LOC: ED 08:54 → ICU 20:06 → PCU 07-11 11:42
PROVIDERS: Internal Medicine; Internal Medicine Nephrology; Admitting Provider Internal Medicine; Emergency Provider Student in an Organized Health Care Education/Training Program; PCP Internal Medicine; Visit Provider Internal Medicine
DX: N17.9 Acute kidney failure, unspecified (principal); E10.10 Type 1 diabetes mellitus with ketoacidosis without coma; E43 Unspecified severe protein-calorie malnutrition; E87.0 Hyperosmolality and hypernatremia; Z68.1 Body mass index [BMI] 19.9 or less, adult; K76.1 Chronic passive congestion of liver; Z79.4 Long term (current) use of insulin; R11.2 Nausea with vomiting, unspecified; F41.9 Anxiety disorder, unspecified; F17.210 Nicotine dependence, cigarettes, uncomplicated; K21.9 Gastro-esophageal reflux disease without esophagitis; E87.70 Fluid overload, unspecified; Z11.52 Encounter for screening for COVID-19; Z79.899 Other long term (current) drug therapy
CPT/HCPCS: 36415; 71045; 74176; 76705; 76770; 80048; 80053; 80076; 80307; 81001; 82009; 82150; 82274; 82436; 82550; 82570; 82803; 82962; 83605; 83690; 83735; 83935; 84133; 84145; 84300; 84443; 84484; 84540; 85025; 85652; 87040; 87086; 87493; 87506; 87631; 87633; 93005; 97803; 99285; 99406; J7030; J7120; A4216; J0612; J1940; J2405; J7799

== ENCOUNTER → 2023-07-24 | Outpatient (CLI) | payer MEDICAID, SELFPAY ==
[2023-07-24 17:05] LABS: Anion Gap 11 (5-15); BUN 15 mg/dL (7-18); BUN/Creat Ratio 11.3 RATIO (10-20); Calcium,Total 9.7 mg/dL (8.5-10.1); Chloride 99 mmol/L (98-107); Creatinine, Serum 1.33 mg/dL (0.70-1.30); EST Glomerular Filtration Rate 65 mL/min (>60); Est Glom Filt Rate - Afr Amer 79 mL/min (>60); Glucose 288 mg/dL (74-106); Potassium 3.2 mmol/L (3.5-5.1); Sodium Level 135 mmol/L (136-145)
--- OUTSIDE RECORDS SUMMARY | 2023-07-24 18:30 | XMS RPT_ITS | CCD ---
Author Name Unknown Address [address] [place] [address] Organization [facility] Care Team Providers Care Ditching Machine Operator Name Role Phone Bella VILLEGAS, Daily Sexton Unavailable [phone] Melania Nuñez LPN Unavailable Unavailable Joaquin LUCERO, Melania Terry Unavailable Unavailable JOE MCKEON Unavailable Unavailable JOE MCKEON Unavailable Unavailable ALEXANDRE HUNT Unavailable Unavailable MCMORROW, TREVER Unavailable Unavailable RAGHUNATJITENDRA, SAL Unavailable Unavailable Yobani Nuñez LPNia L Unavailable Unavailable Renea Krishna L Unavailable Melania Nuñez LPN L Unavailable Unavailable Joaquin LUCERO, Melania L Unavailable Unavailable Alexandre Hunt MD Primary Care Provider ALEXANDRE HUNT Primary Care Unavailable SAMMIE DAWN [...] 97.5 [degF] Sammie Dawn APRN.CNP Work Phone: [facility] 05-23-2023 17:40-0500 Body weight 58.24 kg Sammie Dawn APRN.CNP Work Phone: [facility] 05-23-2023 17:40-0500 Diastolic blood pressure 62 mm[Hg] Sammie Dawn APRN.CNP Work Phone: [facility] 05-23-2023 17:40-0500 Heart rate 102 /min Sammie Dawn APRN.ORACLE ERP DEVELOPER Work Phone: [facility] 05-23-2023 17:40-0500 Respiratory rate 16 /min Sammie Dawn APRN.ORACLE ERP DEVELOPER Work Phone: [facility] 05-23-2023 17:40-0500 SaO2% (BldA) [Mass fraction] 98 % Sammie Dawn APRN.ORACLE ERP DEVELOPER Work Phone: [facility] 05-23-2023 17:40-0500 Systolic blood pressure 106 mm[Hg] Sammie Dawn APRN.ORACLE ERP DEVELOPER Work Phone: [facility] 04-24-2017 10:04-0400 BMI (Body Mass Index) 20.56 kg/m2 [facility] Work Phone: 04-24-2017 10:04-0400 Body Temperature 98.3 [degF] Melania Nuñez LPN [facility] Work Phone: 04-24-2017 10:04-0400 [...] 04-24-2017 10:04-0400 Weight 57.79 kg Melania Joaquin ACTIVITY ASSISTANT [facility] Work Phone: 04-08-2017 08:51-0400 BMI (Body Mass Index) 21.37 kg/m2 Melania Nuñez LPN [facility] Work Phone: 04-08-2017 08:51-0400 BP Diastolic 64 mm[Hg] Melania Nuñez LPN [facility] Work Phone: 04-08-2017 08:51-0400 BP Systolic 100 mm[Hg] Melania Nuñez LPN [facility] Work Phone: 04-08-2017 08:51-0400 Height 167.64 cm Melania Nuñez LPN [facility] Work Phone: 04-08-2017 08:51-0400 Pulse (Heart Rate) 88 /min Melania Nuñez LPN [facility] Work Phone: 04-08-2017 08:51-0400 Respiratory Rate 20 /min Melania Nuñez LPN [facility] Work Phone: 04-08-2017 08:51-0400 Weight 60.06 kg Melania Nuñez LPN [facility] Work Phone: 01-16-2017 08:22-0400 BMI (Body Mass Index) 21.5 kg/m2 Melania Nuñez LPN [facility] Work Phone: 01-16-2017 08:22-0400 Body Temperature 96.5 [degF] Melania Nuñez LPN [facility] Work Phone: 01-16-2017 08:22-0400 BP Diastolic 70 mm[Hg] Melania Nuñez LPN [facility] Work Phone: 01-16-2017 08:22-0400 BP Systolic 108 mm[Hg] Melania Nuñez LPN [facility] Work Phone: 01-16-2017 08:22-0400 [...] BP Diastolic 69 mm[Hg] Daily Bella VILLEGAS [facility] Work Phone: 10-17-2016 13:29-0400 BP Systolic 112 mm[Hg] Daily Shocarolee SLAB WORKER [facility] Work Phone: 10-17-2016 13:29-0400 Height 167.64 cm Daily Shocarolee VILLEGAS [facility] Work Phone: 10-17-2016 13:29-0400 Pulse (Heart Rate) 73 /min Daily Haneycarolee VILLEGAS [facility] Work Phone: 10-17-2016 13:29-0400 Pulse Oximetry 97 % Daily Shocarolee VILLEGAS [facility] Work Phone: 10-17-2016 13:29-0400 Respiratory Rate 16 /min Daily Shocarolee VILLEGAS [facility] Work Phone: 10-17-2016 13:29-0400 Weight 60.15 kg Daily Haneycarolee SLAB WORKER [facility] Work Phone: 08-01-2016 08:49-0500 BSA (Body Surface Area) 1.68 m2 Daliy Blanco NP [facility] Work Phone: Encounters Encounter Date Encounter Type Care Provider Facility Start: 05-23-2023 End: 05-23-2023 ambulatory ALEXANDRE HUNT Facility:[facility] Start: 05-23-2023 End: 05-23-2023 Patient encounter procedure Sammie Dawn APRN.CNP Work Phone: [facility] Procedures Date Procedure Procedure Detail Performing Clinician Start: 05-08-2016 Colonoscopy Sammie Dawn APRN.ORACLE ERP DEVELOPER Work Phone: Plan of Treatment Date Care Activity Detail Author Start: 05-08-2026 Colonoscopy Colonoscopy [facility] Start: 05-08-2026 Colorectal Cancer Screening Colorectal Cancer Screening [facility] Start: 02-21-2023 Influenza vaccination Influenza Vaccine (#1) [facility] Start: 01-09-2018 3 comp foot exam completed Diabetic Foot Exam [facility] Start: 01-09-2018 Pneumococcal vaccination Pneumococcal Vaccine (2 - PCV) [facility] Start: 10-10-2017 Hepatitis B screening Urine Albumin:Creatinine Ratio [facility] Start: 10-10-2017 Hepatitis B surface antibody level LDL Cholesterol [facility] Start: 07-24-2017 End: 07-24-2017 Appointment Appointment [facility] Work Phone: Start: 07-08-2017 End: 07-08-2017 Appointment Appointment [facility] Work Phone: Start: 04-24-2017 End: 04-24-2017 *CMP Complete Metabolic Panel *CMP Complete Metabolic Panel [facility] Work Phone: Start: 04-24-2017 End: 04-24-2017 *Microalbumin, Creatine Ratio, rand urine *Microalbumin, Creatine Ratio, rand urine [facility] Work Phone: Start: 04-24-2017 End: 04-24-2017 Hemoglobin A1c/Hemoglobin.total mass fraction (Bld) *HgA1C [facility] Work Phone: Start: 04-24-2017 End: [...] 01-19-2017 Hemoglobin A1c/Hemoglobin.total mass fraction (Bld) *HgA1C [facility] Work Phone: Start: 01-16-2017 End: 01-19-2017 Lipid panel [AGGREGATE] *Lipid Profile [facility] Work Phone: Start: 01-16-2017 End: 01-16-2017 Appointment Appointment [facility] Work Phone: Start: 01-16-2017 End: 01-16-2017 Appointment Appointment [facility] Work Phone: Start: 01-16-2017 End: 01-19-2017 *CMP Complete Metabolic Panel *CMP Complete Metabolic Panel [facility] Work Phone: Start: 01-16-2017 End: 01-19-2017 *Microalbumin, Creatine Ratio, rand urine *Microalbumin, Creatine Ratio, rand urine [facility] Work Phone: Start: 01-16-2017 End: 01-19-2017 Hemoglobin A1c/Hemoglobin.total mass fraction (Bld) *HgA1C [facility] Work Phone: Start: 01-16-2017 End: 01-19-2017 Lipid 1996 panel *Lipid Profile [facility] Work Phone: Start: 01-09-2017 Hemoglobin A1c/Hemoglobin.total in Blood HbA1C [facility] Start: 08-01-2016 End: 08-02-2016 *CMP Complete Metabolic Panel *CMP Complete Metabolic Panel [facility] Work Phone: Start: 08-01-2016 End: 08-02-2016 *Microalbumin, Creatine Ratio, rand urine *Microalbumin, Creatine Ratio, rand urine [facility] Work Phone: Start: 08-01-2016 End: 08-02-2016 Hemoglobin A1c/Hemoglobin.total mass fraction (Bld) *HgA1C [facility] Work Phone: Start: 08-01-2016 End: 08-02-2016 Lipid panel [AGGREGATE] *Lipid Profile [facility] Work Phone: Start: 08-01-2016 End: 08-02-2016 Thyroid stimulating hormone (TSH) *TSH [facility] Work Phone: Start: 08-01-2016 End: 08-02-2016 *CMP Complete Metabolic Panel *CMP Complete Metabolic Panel [facility] Work Phone: Start: 08-01-2016 End: 08-02-2016 *Microalbumin, Creatine Ratio, rand urine *Microalbumin, Creatine Ratio, rand urine [facility] Work Phone: Start: 08-01-2016 End: 08-02-2016 HbA1c *HgA1C [facility] Work Phone: Start: 08-01-2016 End: 08-02-2016 Lipid panel [AGGREGATE] *Lipid Profile [facility] Work Phone: Start: 08-01-2016 End: 08-02-2016 Thyroid stimulating hormone (TSH) *TSH [facility] Work Phone: Start: 02-21-2016 Hepatitis C antibody, confirmatory test Dilated Retinal Exam [facility] Start: 2007 Urine microalbumin profile DTaP,Tdap,Td Vaccine (1 - Tdap) [facility] Start: 2006 Annual PCP Team Chronic Disease Visit Annual PCP Team Chronic Disease Visit [facility] Start: 2006 Hepatitis C Screening Hepatitis C Screening [facility] Start: 2006 HIV Screening HIV Screening [facility] Start: 05-06-2001 Hepatitis B Vaccine (3 of 3 - 3-dose series) Hepatitis B Vaccine (3 of 3 - 3-dose series) [facility] Start: 1988 Covid-19 Vaccine (#1) Covid-19 Vaccine (#1) [facility] Immunizations Immunization Date Immunization Notes Care Provider Fa madelyn 01-09-2017 pneumococcal polysaccharide vaccine, 23 valent Sammie Dawn APRN.ORACLE ERP DEVELOPER Work Phone: [facility] 07-11-2016 influenza virus vacc ine, unspecified formulation Sammie Dawn APRN.ORACLE ERP DEVELOPER Work Phone: [facility] 05-06-2007 influenza virus vacc ine, unspecified formulation Sammie Dawn APRN.ORACLE ERP DEVELOPER Work Phone: [facility] Work Phone: Payers Date Payer Category Payer Unknown [id number] 1990 Unknown [id number] Social History Date Type Detail Facility Start: 05-23-2023 Tobacco smoking stat [facility] Smokes tobacco daily [facility] History of tobacco use Cigarette Smoker C [facility] Start: 05-23-2023 Cigarettes smoked cu rrent (pack per day) - Reported 0.[address] [facility] Start: 05-23-2023 Tobacco use and exposure Smoke less tobacco non-user [facility] Start: 05-23-2023 Alcohol intake Current non-dr temper mill operator of alcohol (finding) [facility] Start: 05-23-2023 Tobacco use panel [facility] Start: 05-23-2023 Tobacco Comment as of 12/2015 s mokes 10 cigarettes a day [facility] Start: 1990 Sex Assigned At Not on file C [facility] Medical Equipment Procedure Code Equipment Code Equipment Origin al Text Equipment Identifier Dates Test blood sugar 4-5 times daily. Dx: diabetes type 1. Insulin: Yes Start: 08-24-2015 Progress note 05-23-2023 Note Date & Type Note Facility 05-23-2023 Note HNO ID: [id number] Author: Sammie Dawn APRN.JACKI Service: ? Author [...] Patient agreeable to treatment plan. Sammie Dawn APRN.[facility] History of Present illness Narrative 05-23-2023 Sammie Dawn APRN.[facility] - 05/23/2023 5:51 PM EST Note Date [...] Patient agreeable to treatment plan. Sammie Dawn APRN.ORACLE ERP DEVELOPER documented in this encounter [facility] Evaluation note Note Date & Type Note Facility documented in this encounter [facility] Summary Purpose Family History No Family History Records FoundNo Family History Records Found Advance Directives No Advanced Directives Records FoundNo Advanced Directives Records Found Additional Source Comments (unrecognized sect ion and content) No Status Records FoundNo Status Records Found INFORMATION SOURCE (unrecogn ized section and content) DATE CREATED AUTHOR AUTHOR'S ORGANIZ ATION 05/26/2023 [facility] Source Comments (unrecognize d section and content) In the event this informatio n is protected by the Federal Confidentiality of Alcohol and Drug Abuse Patient Records regulations: The Federal rules restrict any use of the information to criminally investigate or prosecute any alcohol or drug abuse patient.[facility] Reason for Visit (unrecogniz ed section [...] BE BASED ON THE PRIMARY CLINICAL RECORDS. [facility] [employer] [facility]. provides no warranty or guarantee of the accuracy or completeness of information in this document.
== END | disposition home or self-care (01) ==
LOC: LAB 14:26
PROVIDERS: PCP Internal Medicine; Referring Provider Internal Medicine Nephrology; Visit Provider Internal Medicine Nephrology
DX: N17.9 Acute kidney failure, unspecified (principal)
CPT/HCPCS: 36415; 80048

== ENCOUNTER → 2023-10-27 | Outpatient (CLI) | payer MEDICAID, SELFPAY ==
[2023-10-27 15:25] LABS: Color, Urine Yellow (Yellow); Glucose, Dipstick 1000 mg/dl (Normal); Ketone-Dipstick Negative (Negative); Leukocyte Esterase-Dipstick Negative /ul (Negative); Nitrite-Dipstick Negative (Negative); Occult Blood-Urine Negative /ul (Negative); Protein-Dipstick Negative (Negative); Urine Bilirubin Dipstick Negative (Negative); Urine Clarity Clear (Clear); Urine Urobilinogen Normal (Normal)
[2023-10-27 15:34] LABS: Anion Gap 5 (5-15); BUN 12 mg/dL (7-18); BUN/Creat Ratio 10.6 RATIO (10-20); Calcium,Total 9.1 mg/dL (8.5-10.1); Chloride 106 mmol/L (98-107); Creatinine, Serum 1.13 mg/dL (0.70-1.30); EST Glomerular Filtration Rate 78 mL/min (>60); Est Glom Filt Rate - Afr Amer 95 mL/min (>60); Glucose 255 mg/dL (74-106); Potassium 3.9 mmol/L (3.5-5.1); Sodium Level 139 mmol/L (136-145)
[2023-10-27 15:35] LABS: Protein, Urine (Random) < 6.0 mg/dL (<11.9); Protein:Creat Ratio 102 mg/g CRE (0-200)
== END | disposition home or self-care (01) ==
LOC: LAB 14:28
PROVIDERS: PCP Internal Medicine; Referring Provider Internal Medicine Nephrology; Visit Provider Internal Medicine Nephrology
DX: N17.9 Acute kidney failure, unspecified (principal)
CPT/HCPCS: 36415; 80048; 81002; 82570; 84156

== ENCOUNTER → 2024-01-09 | Outpatient (CLI) | payer MEDICAID, SELFPAY ==
[2024-01-09 15:34] LABS: Absolute Lymphocyte Count 1.18 X10^3/uL (0.83-4.51); Absolute Neutrophil Count 3.1 X10^3/uL (2.0-7.7); Basophil# 0.07 X10^3/uL; Basophil% 1.4 % (0-1); Eosinophil# 0.28 X10^3/uL; Eosinophils% 5.6 % (0-5); Hematocrit 40.4 % (40-54); Hemoglobin 14.4 g/dL (13.0-16.5); Lymphocyte # 1.18 X10^3/ul (0.83-4.51); Lymphocyte % 23.7 % (19-41); Mean Corp Hgb Conc 35.6 g/dL (32-36); Mean Corpuscular Hgb 30.8 pg (27.0-32.0); Mean Corpuscular Volume 86.5 fL (80-94); Mean Platelet Vol. 10.3 fl (6.2-12.0); Monocyte# 0.38 X10^3/uL; Monocyte% 7.6 % (0-10); NRBC Flagged by Analyzer 0 % (0-5); Neutrophil # 3.06 X10^3/uL (2.7-7.7); Neutrophil % 61.5 % (47-70); Platelet Count 342 K/mm3 (150-450); RBC Distribution Width CV 11.5 % (11.6-14.6); RBC Distribution Width SD 35.8 fl (35.1-43.9); Red Blood Count 4.67 M/mm3 (4.6-6.2)
[2024-01-09 15:59] LABS: ALB/GLOB Ratio 1.1 RATIO (0.9-2.4); AST(SGOT) 19 U/L (15-37); Alanine Aminotransfer ALT/SGPT 13 U/L (16-61); Albumin, Serum 3.9 g/dL (3.2-5.0); Alkaline Phosphatase 103 U/L (45-117); Anion Gap 7 (5-15); BUN 14 mg/dL (7-18); BUN/Creat Ratio 12.7 RATIO (10-20); Calcium,Total 9.5 mg/dL (8.5-10.1); Chloride 102 mmol/L (98-107); EST Glomerular Filtration Rate 81 mL/min (>60); Est Glom Filt Rate - Afr Amer 98 mL/min (>60); Globulin 3.6 g/dL (2.2-4.2); Glucose 331 mg/dL (74-106); Potassium 4.5 mmol/L (3.5-5.1); Protein, Total 7.5 g/dL (6.4-8.2); Sodium Level 136 mmol/L (136-145)
== END | disposition home or self-care (01) ==
LOC: BIMLAB 11:46
PROVIDERS: PCP Internal Medicine; Referring Provider Internal Medicine; Visit Provider Internal Medicine
DX: E10.65 Type 1 diabetes mellitus with hyperglycemia (principal)
CPT/HCPCS: 36415; 80053; 85025

== ENCOUNTER → 2024-04-15 | Outpatient (CLI) | payer MEDICAID, SELFPAY ==
[2024-04-15 16:36] LABS: Absolute Lymphocyte Count 1.35 X10^3/uL (0.83-4.51); Absolute Neutrophil Count 2.9 X10^3/uL (2.0-7.7); Basophil# 0.05 X10^3/uL; Eosinophil# 0.32 X10^3/uL; Eosinophils% 6.3 % (0-5); Hemoglobin 13.6 g/dL (13.0-16.5); Lymphocyte # 1.35 X10^3/ul (0.83-4.51); Lymphocyte % 26.5 % (19-41); Mean Corp Hgb Conc 34.9 g/dL (32-36); Mean Corpuscular Hgb 30.2 pg (27.0-32.0); Mean Corpuscular Volume 86.7 fL (80-94); Monocyte# 0.44 X10^3/uL; Monocyte% 8.6 % (0-10); NRBC Flagged by Analyzer 0 % (0-5); Neutrophil # 2.93 X10^3/uL (2.7-7.7); Neutrophil % 57.4 % (47-70); Platelet Count 310 K/mm3 (150-450); RBC Distribution Width CV 11.9 % (11.6-14.6); RBC Distribution Width SD 37.6 fl (35.1-43.9); White Blood Count 5.1 K/mm3 (4.4-11.0)
[2024-04-15 17:03] LABS: Microalbumin,Random Urine 7.3 mg/L (NO RANGE EST.); Microalbumin:Creatinine Ratio 7.2 mg/g CRE (<30 mg/g CRE)
[2024-04-15 17:05] LABS: ALB/GLOB Ratio 1.1 RATIO (0.9-2.4); AST(SGOT) 12 U/L (15-37); Alanine Aminotransfer ALT/SGPT 10 U/L (16-61); Albumin, Serum 3.6 g/dL (3.2-5.0); Alkaline Phosphatase 96 U/L (45-117); Anion Gap 4 (5-15); BUN 10 mg/dL (7-18); BUN/Creat Ratio 10.2 RATIO (10-20); CPK Total, Creatine Kinase 70 U/L (39-308); CRP < 2.90 mg/L (0.0-3.0); Calcium,Total 8.9 mg/dL (8.5-10.1); Chloride 107 mmol/L (98-107); Creatinine, Serum 0.98 mg/dL (0.70-1.30); EST Glomerular Filtration Rate 92 mL/min (>60); Est Glom Filt Rate - Afr Amer 112 mL/min (>60); Globulin 3.3 g/dL (2.2-4.2); Glucose 277 mg/dL (74-106); Potassium 4.6 mmol/L (3.5-5.1); Protein, Total 6.9 g/dL (6.4-8.2); Sodium Level 138 mmol/L (136-145); T4 Free Direct 0.85 ng/dL (0.76-1.46)
[2024-04-15 17:15] LABS: Erythrocyte Sedimentation Rate 1 mm/hr (0-20)
== END | disposition home or self-care (01) ==
LOC: BIMLAB 15:35
PROVIDERS: PCP Internal Medicine; Referring Provider Internal Medicine; Visit Provider Internal Medicine
DX: F41.8 Other specified anxiety disorders (principal); E10.65 Type 1 diabetes mellitus with hyperglycemia; M60.9 Myositis, unspecified
CPT/HCPCS: 36415; 80053; 82043; 82550; 82570; 84439; 84443; 85025; 85652; 86140

== ENCOUNTER 2024-08-25 14:00 | Outpatient (RCR) | payer MEDICAID, SELFPAY ==
--- NOTE | 2024-07-29 11:02 | HP.PTEVAL ---
Patient's Visit Information Visit Information Visit Information: HANS GONZALEZ Jr. is a 34 year old M referred to Physical Therapy by Dr. Alexandre Katz MD with a diagnosis of LBP, LE weakness. Date of Evaluation: 07/28/24 Physical Therapist: Steve Jauregui, PT, ATC Visit Plan Frequency: 2x /Week Duration: 4-6 Weeks Plan: Postural edu, REIL, core strengthening, B LE strengthening, and HEP Subjective Subjective: Pt reports he was sent here today because he saw his doctor and they discovered he has B LE weakness. Pt notes they blame it on his diabetes and the lack of his control over his blood sugar. Pt reports he also has LBP that radiates into his L LE. Pt notes this will cause his L LE to give out on him occasionally secondary to the weakness. Pt reports he also has poor vision which even more so complicates his mobility. Pt reports he works for the [employer] here in [place] which requires him to perform a lot of walking throughout the day. Pt reports his knee gives out on him on occasion, but he has never fallen as a result. L knee will lock up on him occasionally. Pt reports sleep difficulty at this time secondary to pain. Pt reports standing makes him feel better than sitting. 3/10 pain at rest, 7/10 pain at worst Pain LBP: Pain Intensity (Out of 10): 3 Pain Intensity Range: 7 Objective Objective: Neuro: B LE sensation is WNL to light touch MMT: R hip flex= 25, abd= 33, ADD= 45, knee flex= 33, knee ext= 17; L hip flex= 23, abd= 33, ADD= 53, knee flex= 33, knee ext= 33 #F ROM: Pt is moderately limited in flex and ext of his L/S. Flexion peripheralizes sx's into B feet Repeated movements: Prone prop progression followed by REIL 10x2 Balance/Special Test Scores Lower Extremity Functional Score: 75 Goals Goal 1:: Decrease LBP x 50% to aid with sleep Goal Time Frame: 4-6 Weeks Goal 2:: Decrease frequency and intensity of B LE radiculopathy x 50% to aid with ambulation Goal Time Frame: 4-6 Weeks Goal 3:: I with HEP Goal Time Frame: 4-6 Weeks Goal 4:: strength of LE's will be equal bilaterally. Goal Time Frame: 4-6 Weeks Rehabilitation Potential Physical Therapy Diagnosis: Pt has LBP, B LE radiculopathy, and LE weakness secondary to L/S disc derangement Rehabilitation Potential: Good Anticipated Interventions Patient/Client Instruction: Educate patient on: Condition and Plan of Care For the Purpose of:: To improve self management Therapeutic Exercise to Include: Strength training, Endurance training, Balance training, Body mechanics, Postural training, Gait and locomotor training, Dynamic Lumbar Stabilization and Rai Exercises For the Purpose of:: To decrease pain, To increase ROM and To improve muscle performance and motor function Text: Thank you for the opportunity to evaluate your patient. For Medicare and Medicare HMO plans, please review the plan of care and approve it. It will need to be FAXED BACK to us at [phone] for Medicare purposes. For Medicare only, by signing this I certify the plan of care. Please let me know if there are questions or concerns regarding this plan of care. Physician Signature: Date:
--- NOTE | 2024-08-25 14:47 | HP.PTDCSUM ---
Discharge Summary D/C summary: It has been my pleasure to treat HANS GONZALEZ Jr. referred by Dr. Alexandre Katz MD, with the diagnosis of LBP, LE weakness for a total of 6 visit(s). Discharge Date: Please see the following information for a summary of their discharge status. Subjective Subjective: My LBP has improved. I still have pain in my legs Pain LBP: Pain Intensity (Out of 10): 6 BLE: Pain Intensity (Out of 10): 3 Overall Improvement % Improvement: 50 Objective Objective/Function: LBP is 3/10, leg pain 6/10. No sleep difficulty secondary to pain at this time Pt reports his LE radiculopathy is actually progressed beyond the knee region at this time to the foot. Pt is I with HEP B legs are still weak and progressing to be weaker Goals Goal 1:: Decrease LBP x 50% to aid with sleep Goal Progress: Goal Met Goal 2:: Decrease frequency and intensity of B LE radiculopathy x 50% to aid with ambulation Goal Progress: Not Progressing Goal 3:: I with HEP Goal Progress: Goal Met Goal 4:: strength of LE's will be equal bilaterally. Goal Progress: Not Progressing Plan Plan: Discontinue at this time, return to doctor secondary to increase in LE sx's D/C Information d/c sentence: If there are questions or concerns regarding this patient's physical therapy, please feel free to call me at [phone]. Thank you for the referral of this patient. Sincerely, Steve Jauregui, PT, ATC Balance/Gait/Functional tests Balance/Special Test Scores Oswestry Low Back Score: 9 Lower Extremity Functional Score: 75 Improvement % Improvement: 50
== END 2024-08-25 19:00 | disposition home or self-care (01) ==
LOC: PT 14:00
PROVIDERS: PCP Internal Medicine; Referring Provider Internal Medicine; Visit Provider Internal Medicine
DX: R29.898 Other symptoms and signs involving the musculoskeletal system (principal); M79.10 Myalgia, unspecified site
CPT/HCPCS: 97110; 97161; 97530

== ENCOUNTER → 2024-10-27 | Outpatient (CLI) | payer MEDICAID, SELFPAY ==
[2024-10-27 15:27] LABS: Absolute Lymphocyte Count 1.59 X10^3/uL (0.83-4.51); Basophil# 0.07 X10^3/uL; Basophil% 1.1 % (0-1); Eosinophil# 0.27 X10^3/uL; Eosinophils% 4.1 % (0-5); Hematocrit 38.3 % (40-54); Hemoglobin 13.9 g/dL (13.0-16.5); Lymphocyte # 1.59 X10^3/ul (0.83-4.51); Lymphocyte % 24.3 % (19-41); Mean Corp Hgb Conc 36.3 g/dL (32-36); Mean Corpuscular Hgb 31.3 pg (27.0-32.0); Mean Corpuscular Volume 86.3 fL (80-94); Mean Platelet Vol. 10.5 fl (6.2-12.0); Monocyte# 0.57 X10^3/uL; Monocyte% 8.7 % (0-10); NRBC Flagged by Analyzer 0 % (0-5); Neutrophil # 4.02 X10^3/uL (2.7-7.7); Neutrophil % 61.3 % (47-70); Platelet Count 302 K/mm3 (150-450); RBC Distribution Width CV 12.1 % (11.6-14.6); RBC Distribution Width SD 38.5 fl (35.1-43.9); Red Blood Count 4.44 M/mm3 (4.6-6.2); White Blood Count 6.6 K/mm3 (4.4-11.0)
[2024-10-27 16:38] LABS: ALB/GLOB Ratio 1.6 RATIO (0.9-2.4); AST(SGOT) 18 U/L (<=37); Alanine Aminotransfer ALT/SGPT 8 U/L (<=46); Albumin, Serum 4.5 g/dL (3.5-5.0); Alkaline Phosphatase 134 U/L (40-129); Anion Gap 12 (5-15); BUN 22 mg/dL (4-19); BUN/Creat Ratio 18.7 RATIO (10-20); Calcium,Total 9.5 mg/dL (7.6-11.0); Carbon Dioxide 24.6 mmol/L (21.0-32.0); Chloride 101 mmol/L (98-108); Creatinine, Serum 1.15 mg/dL (0.70-1.20); EST Glomerular Filtration Rate 85 (>60); Globulin 2.8 g/dL (2.2-4.2); Glucose 186 mg/dL (70-99); Magnesium 1.6 mg/dL (1.5-2.2); Potassium 4.6 mmol/L (3.3-5.1); Protein, Total 7.3 g/dL (5.9-8.4); Sodium Level 138 mmol/L (133-145)
== END | disposition home or self-care (01) ==
LOC: BIMLAB 14:17
PROVIDERS: PCP Internal Medicine; Visit Provider Internal Medicine
DX: K52.9 Noninfective gastroenteritis and colitis, unspecified (principal); F32.A Depression, unspecified; F41.9 Anxiety disorder, unspecified
CPT/HCPCS: 36415; 80053; 83735; 84439; 84443; 85025

== ENCOUNTER 2024-11-04 14:01 | Emergency (ER) | payer MEDICAID, SELFPAY ==
[2024-11-04] VITALS (7 sets, daily range): BP systolic 95–109; BP diastolic 64–78; PULSE 63–95; RESP 10–19; TEMP 36.5–36.9; O2SAT 97–100; BMI 21.4
--- NOTE | 2024-11-04 14:09 | EKG12_ITS ---
Test Reason : SYNCOPE Blood Pressure : */* mmHG Vent. Rate : 76 BPM Atrial Rate : 76 BPM P-R Int : 142 ms QRS Dur : 80 ms QT Int : 352 ms P-R-T Axes : 10 51 59 degrees QTcB Int : 396 ms Normal sinus rhythm Normal ECG Confirmed by JOSE RAFAEL CHAPMAN, AGUSTO ([id number]), editor greeting card BOLA JIMENEZ ([id number]) on 11/08/2024 8:39:25 AM Referred By: Confirmed By: AGUSTO MANTILLA MD
[2024-11-04] MEDS: 0.9% Normal Saline (1000mL) 1,000 ML 50 ML IV (14:22)
[2024-11-04 14:25] LABS: Bedside Glucose 264 mg/dL (74-106)
[2024-11-04 14:29] LABS: Absolute Lymphocyte Count 2.28 X10^3/uL (0.83-4.51); Absolute Neutrophil Count 3.9 X10^3/uL (2.0-7.7); Basophil# 0.09 X10^3/uL; Basophil% 1.2 % (0-1); Eosinophils% 2.8 % (0-5); Hemoglobin 14.7 g/dL (13.0-16.5); Lymphocyte # 2.28 X10^3/ul (0.83-4.51); Lymphocyte % 31.6 % (19-41); Mean Corp Hgb Conc 36.8 g/dL (32-36); Mean Corpuscular Volume 84.4 fL (80-94); Mean Platelet Vol. 9.8 fl (6.2-12.0); Monocyte# 0.73 X10^3/uL; Monocyte% 10.1 % (0-10); NRBC Flagged by Analyzer 0 % (0-5); Neutrophil # 3.88 X10^3/uL (2.7-7.7); Neutrophil % 53.9 % (47-70); Platelet Count 362 K/mm3 (150-450); RBC Distribution Width CV 11.4 % (11.6-14.6); RBC Distribution Width SD 34.7 fl (35.1-43.9); Red Blood Count 4.74 M/mm3 (4.6-6.2); White Blood Count 7.2 K/mm3 (4.4-11.0)
[2024-11-04 15:16] LABS: Anion Gap 16 (5-15); BUN 18 mg/dL (4-19); BUN/Creat Ratio 13.3 RATIO (10-20); Carbon Dioxide 19.5 mmol/L (21.0-32.0); Chloride 98 mmol/L (98-108); Creatinine, Serum 1.38 mg/dL (0.70-1.20); EST Glomerular Filtration Rate 68 (>60); Glucose 240 mg/dL (70-99); Potassium 3.7 mmol/L (3.3-5.1); Sodium Level 134 mmol/L (133-145)
--- NOTE | 2024-11-04 15:30 | RAD_ITS ---
PROCEDURE: CHEST 1 VIEW (PORTABLE) 11/04/2024 REASON FOR EXAM: STROKE TECHNIQUE: Frontal view of the chest. COMPARISON: July 08, 2023. FINDINGS: Hardware: EKG electrodes are seen. Heart: Cardiac and mediastinal contours are stable. Lungs: No significant change in the appearance of the lungs. Bones: The bones are unremarkable. Other: RAD/Chest 1 View (Portable) IMPRESSION: Negative Chest. Reading Location: [id number]
--- NOTE | 2024-11-04 15:31 | EDS_ITS ---
HPI History of Present Illness Chief Complaint: Syncope Informant: patient Narrative Narrative: 34-year-old male presenting to the emergency room with near syncope. Patient tells me that he woke up around 11:00 this morning. Around 1:00 he was putting pressure into a tire and he stood up and felt very lightheaded like he was going to pass out. States he went told his boss when he stood up again he states that same symptoms returned. He states a coworker had to catch him. He never actually lost consciousness. He states that the lights outside are too bright for him and the lights inside are not as bad but are still very bright. He notes he has been having some chronic diarrhea states he is having some test done with his PCP and GI. He notes some chronic pain in his back for which he has an MRI scheduled. He notes various aches throughout his body including his legs and right forearm. He has a history of diabetes peptic ulcer disease arthritis. Patient states he has been feeling short of breath right. Aspirated by means by diagnosis breathing. Normal okay he states that just seems like he cannot get a good breath. [facility] Medical History URI (upper respiratory infection) Lower extremity weakness Chronic diarrhea Myalgia Myositis Musculoskeletal back pain Elevated blood pressure reading without diagnosis of hypertension Gastroenteritis Type 1 diabetes mellitus Major depression with psychotic features Headache Pain and numbness of upper extremity Vision problems Arthritis Headache, migraine Anxiety and depression Home Medications ?Medication ?Instructions ?Recorded ?Last Taken ?Type flash glucose sensor (FreeStyle #2 ea 02/19/23 Unknown Rx Celena 2 Sensor kit) acetaminophen 650 mg 1,300 mg PO ONCE 08/14/23 Un known History tablet,extended release (Tylenol Arthritis Pain) tadalafil 5 mg tablet 5 mg PO DAILY PRN sexual act ivity 01/09/24 Unknown Rx #30 tabs Novolog FlexPen U-100 Insulin 100 20 unit (0.2 mL) sub cut TIDCM 01/22/24 Unknown Rx unit/mL (3 mL) subcutaneous DIABETES #15 mL (insulin aspart U-100) insulin degludec 100 unit/mL (3 18 unit (0.18 mL) subc ut QHS #15 mL 01/22/24 Unknown Rx mL) subcutaneous pen (Tresiba FlexTouch U-100 insulin) baclofen 10 mg tablet 10 mg PO BID PRN muscle spas m #30 04/15/24 Unknown Rx tabs olanzapine 5 mg tablet (Zyprexa) 5 mg PO QHS #30 tabs 04/19/24 Unknown Rx sertraline 50 mg tablet 50 mg PO QDAY #60 tabs 05/13 Unknown Rx omeprazole 40 mg capsule,delayed 40 mg PO DAILY #90 ca ps 07/19/24 Unknown Rx release blood-glucose sensor (FreeStyle #2 ea 10/19/24 Unknown Rx Celena 3 Plus Sensor device) loperamide 2 mg tablet (Imodium 2 mg PO Q6H PRN loose stool 10/27/24 Unknown History A-D) Allergy/AdvReac Type Severity Reaction Status Date / Time No Known Allergies Allergy Verified 11/04/24 14:03 Family History Grandfather Myocardial infarction COPD (chronic obstructive pulmonary disease) Brother Depression suicide attempt Uncle Diabetes Father Diabetes Aunt Diabetes Surgical History trigger finger surgery Social History Smoking Status: Current every day smoker tobacco type: cigarettes Tobacco: How many years used: 13 second hand exposure: No quit status: not considering quitting alcohol intake: never substance use type: marijuana what type of physical activity do you participate in: walking, running and weight training frequency: 3-4 times per week ROS ROS ED ROS Narrative Lightheadedness light sensitivity Constitutional Constitutional ED: Denies chills or weight loss Eyes Eyes: Denies change in vision or diplopia ENT ENT ED: Denies ear pain, rhinorrhea or sore throat Cardiovascular Cardiovascular: Reports other Details: Near syncope ; Denies chest pain, orthopnea, palpitations or racing heartbeat Respiratory/Chest Respiratory/Chest: Reports dyspnea; Denies cough or orthopnea Gastrointestinal Gastrointestinal: Denies abdominal pain, diarrhea, nausea or vomiting Genitourinary Genitourinary ED: Denies dysuria, hematuria or urinary frequency Musculoskeletal Musculoskeletal: Reports arthralgias, back pain and myalgias Integumentary Denies abscess or rash Neurologic Neurologic: Denies headache(s), paresthesias or weakness Psychiatric Psychiatric: Denies anxiety, depression, suicidal ideation or suicidal thoughts Endocrine Endocrinology: Denies polydipsia, polyphagia or polyuria Allergic/Immunologic Allergic/Immunologic ED: Denies mouth swelling, tongue swelling or urticaria EXAM Physical Exam Narrative Exam Narrative: Patient lying in the bed. He speaks very softly and is slowly and weakly. His vital signs are blood pressure 109/78 heart rate of 87 around 100% on room air and afebrile respirations are easy unlabored at 12 Const Vital Signs: 11/04/24 14:02 11/04/24 15:15 11/04/24 15:16 Temperature 98.4 F Temperature Source Oral Pulse Rate 95 87 Respiratory Rate 18 10 L Respiratory Pattern Normal Blood Pressure 95/66 109/78 Blood Pressure Mean 75 88 Pulse Ox 98 100 Oxygen Delivery Method Room Air Room Air 11/04/24 16:50 11/04/24 17:00 11/04/24 18:23 Temperature Temperature Source Pulse Rate 72 63 75 Respiratory Rate 16 15 19 H Respiratory Pattern Blood Pressure 103/66 101/64 109/76 Blood Pressure Mean 78 76 87 Pulse Ox 97 97 100 Oxygen Delivery Method Positive well nourished and well developed General Appearance ED: well developed and NAD HEENT Reports normocephalic, head/scalp atraumatic and moist mucous membranes Eyes PERRL and EOMs intact bilaterally Neck no lymphadenopathy, supple and no JVD Resp normal respiratory effort and clear to auscultation bilaterally Cardio regular rate, regular rhythm and no murmurs GI normal to inspection, nondistended, normoactive bowel sounds and non-tender Palpation: soft Back/Spine no CVA tenderness and normal ROM Extremity normal to inspection General Extremety ED: Negative for edema General Extremity: Negative for edema Neuro oriented x3 and CN's II-XII intact bilaterally Sensorium / Orientation: alert Motor Exam: strength 5/5 throughout Psych mental status grossly normal Mood & Affect: Negative for depressed or tearful Skin no rashes or lesions noted and no wounds MDM MDM MDM Narrative Medical decision making narrative: Differential diagnosis includes but not limited to vasovagal syncope cardiac syncope dehydration electrolyte abnormalities anemia cardiac dysrhythmia My independent interpretation of the chest x-ray is no acute process. EKG shows a normal sinus rhythm with a rate of 76 with no cardiac events/dysrhythmias noted on the monitor. White count 7.2 hemoglobin 14.7 D-dimer normal 0.272 sets of cardiac enzymes are within normal limits glucose noted to be 240 lactic acid normal at 1.4 total bilirubin 1.67 direct bilirubin 0.56. Patient received IV fluids. He was able to urinate which shows no obvious infection. I think at this point the patient can be discharged home. 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 History & Record Review Discussion w/independent historian: Patient and Family Additional record(s) reviewed:: Prior outpatient record, Prior ED visit and Prior labs Lab Data Attestation: I reviewed the patient's lab results. Labs: Laboratory Results - last 24 hr 11/04/24 11/04/24 11/04/24 14:06 14:15 15:49 WBC 7.2 RBC 4.74 Hgb 14.7 Hct 40.0 MCV 84.4 MCH 31.0 MCHC 36.8 H RDW Std Deviation 34.7 L RDW Coeff of Nathaniel 11.4 L Plt Count 362 MPV 9.8 Immature Gran % (Auto) 0.400 Neut % (Auto) 53.9 Lymph % (Auto) 31.6 [place] % (Auto) 10.1 H Eos % (Auto) 2.8 Baso % (Auto) 1.2 H Absolute Neuts (auto) 3.9 Absolute Lymphs (auto) 2.28 Nucleated RBC % 0 D-Dimer Quant (PE/DVT) 0.27 Sodium 134 Potassium 3.7 Chloride 98 Carbon Dioxide 19.5 L Anion Gap 16 H BUN 18 Creatinine 1.38 H Est GFR (MDRD) Non-Af 68 BUN/Creatinine Ratio 13.3 Glucose 240 H Lactic Acid 1.4 Calcium 10.0 Magnesium 1.5 Total Bilirubin 1.67 H Direct Bilirubin 0.56 H AST 19 ALT 8 Alkaline Phosphatase 119 Troponin T High Sens 14 Troponin T Hi Sens 2 Hr Total Protein 6.3 Albumin 4.0 Globulin 2.4 Lipase 8 L b-Hydroxybutyric mmol/L 0.2 Urine Color Urine Clarity Urine pH Ur Specific [place] Urine Protein Urine Glucose (UA) Urine Ketones Urine Occult Blood Urine Nitrite Urine Bilirubin Urine Urobilinogen Ur Leukocyte Esterase Urine RBC Urine WBC Ur Squamous Epith Cells Urine Bacteria Urine Mucus POC Glucose 264 H 11/04/24 11/04/24 18:20 19:10 WBC RBC Hgb Hct MCV MCH MCHC RDW Std Deviation RDW Coeff of Nathaniel Plt Count MPV Immature Gran % (Auto) Neut % (Auto) Lymph % (Auto) [place] % (Auto) Eos % (Auto) Baso % (Auto) Absolute Neuts (auto) Absolute Lymphs (auto) Nucleated RBC % D-Dimer Quant (PE/DVT) Sodium Potassium Chloride Carbon Dioxide Anion Gap BUN Creatinine Est GFR (MDRD) Non-Af BUN/Creatinine Ratio Glucose Lactic Acid Calcium Magnesium Total Bilirubin Direct Bilirubin AST ALT Alkaline Phosphatase Troponin T High Sens Troponin T Hi Sens 2 Hr 12 Total Protein Albumin Globulin Lipase b-Hydroxybutyric mmol/L Urine Color Straw Urine Clarity Clear Urine pH 6.0 Ur Specific [place] 1.010 Urine Protein 15 H Urine Glucose (UA) 250 H Urine Ketones Negative Urine Occult Blood Negative Urine Nitrite Negative Urine Bilirubin Negative Urine Urobilinogen Normal Ur Leukocyte Esterase Negative Urine RBC 0-5 SEEN Urine WBC 0-5 SEEN Ur Squamous Epith Cells 0-5 SEEN Urine Bacteria 0 SEEN Urine Mucus 0 SEEN POC Glucose Radiography Diagnostic Testing: Clinical Impression(s) from Imaging Studies Chest X-Ray 11/04/24 15:30 IMPRESSION: Negative Chest. Reading Location: [id number] Discharge Plan Triage Chief Complaint: Syncope ED Provider: Chapo Dukes Dx/Rx/DC Orders Clinical Impression: Near syncope, Diabetes mellitus type I Prescriptions: No Action acetaminophen [Tylenol Arthritis Pain] 650 mg tablet extended release 1,300 mg PO ONCE insulin degludec [Tresiba FlexTouch U-100] 100 unit/mL (3 mL) insulin pen 18 unit subcut QHS Qty: 15 4RF insulin aspart U-100 [Novolog FlexPen U-100 Insulin] 100 unit/mL (3 mL) insulin pen 20 unit subcut TIDCM Qty: 15 6RF tadalafil 5 mg tablet 5 mg PO DAILY PRN (Reason: sexual activity) Qty: 30 0RF Rx Instructions: administer approximately 30min before sexual activity; do not use more than 1 dose per 24hrs baclofen 10 mg tablet 10 mg PO BID PRN (Reason: muscle spasm) Qty: 30 1RF omeprazole 40 mg capsule,delayed release(DR/EC) 40 mg PO DAILY Qty: 90 1RF loperamide [Imodium A-D] 2 mg tablet 2 mg PO Q6H PRN (Reason: loose stool) (DME) FreeStyle Celena 2 Sensor Kit See Rx Instructions .ROUTE .MEDSUPPLY Qty: 2 8RF Rx Instructions: 1 sensor q 14 days olanzapine [Zyprexa] 5 mg tablet 5 mg PO QHS Qty: 30 2RF sertraline 50 mg tablet 50 mg PO QDAY Qty: 60 2RF Rx Instructions: Take 1/2 tablet daily x 2 weeks then increase to 1 tablet daily. (DME) FreeStyle Celena 3 Plus Sensor Device See Rx Instructions .Route Qty: 2 12RF Rx Instructions: As directed Primary Care Provider: Alexandre Katz Referrals: Alexandre Katz MD [Primary Care Provider] - Print Language: Mongolian
[2024-11-04 16:36] LABS: AST(SGOT) 19 U/L (<=37); Alanine Aminotransfer ALT/SGPT 8 U/L (<=46); Alkaline Phosphatase 119 U/L (40-129); Bilirubin, Direct 0.56 mg/dL (0.00-0.30); Globulin 2.4 g/dL (2.2-4.2); Lipase 8 U/L (13-75); Magnesium 1.5 mg/dL (1.5-2.2); Protein, Total 6.3 g/dL (5.9-8.4); Total Bilirubin 1.67 mg/dL (0.00-1.30)
[2024-11-04] MEDS: 0.9% Normal Saline (1000mL) 1,000 ML 999 ML IV (16:38)
[2024-11-04 16:51] LABS: Lactic Acid 1.4 mmol/L (0.0-2.0)
[2024-11-04 16:58] LABS: D-Dimer Quantitative (DVT/PE) 0.27 FEU/ug/m (0.27-0.49)
[2024-11-04 17:11] LABS: BETA-HYDROXYBUTYRATE 0.2 mmol/L (0.0-0.3); Troponin T High Sensitivity 14 ng/L (<=22)
[2024-11-04 18:26] LABS: Bacteria 0 SEEN /hpf (None Seen); Mucous, Urine 0 SEEN /hpf (<or=2+)
[2024-11-04 18:35] LABS: Color, Urine Straw (Yellow); Glucose, Dipstick 250 mg/dl (Normal); Ketone-Dipstick Negative (Negative); Leukocyte Esterase-Dipstick Negative /ul (Negative); Nitrite-Dipstick Negative (Negative); Occult Blood-Urine Negative /ul (Negative); Protein-Dipstick 15 mg/dl (Negative); Urine Bilirubin Dipstick Negative (Negative); Urine Clarity Clear (Clear); Urine Urobilinogen Normal (Normal)
[2024-11-04 19:06] LABS: Red Blood Cells-Urine 0-5 SEEN /hpf (0-5); Squamous Epithelial Cells - UA 0-5 SEEN /hpf (0-5); White Blood Cells 0-5 SEEN /hpf (0-5)
[2024-11-04 19:44] LABS: Troponin T High Sens 2 HR 12 ng/L (<=22)
== END 2024-11-04 20:01 | disposition home or self-care (01) ==
PROVIDERS: Emergency Provider Emergency Medicine; PCP Internal Medicine; Visit Provider Emergency Medicine
DX: R55 Syncope and collapse (principal); E10.9 Type 1 diabetes mellitus without complications; F17.210 Nicotine dependence, cigarettes, uncomplicated; R06.02 Shortness of breath
CPT/HCPCS: 71045; 80048; 80076; 81001; 82010; 82962; 83605; 83690; 83735; 84484; 85025; 85379; 93005; 96360; 96361; 99284; A4216

== ENCOUNTER → 2024-11-08 | Outpatient (CLI) | payer MEDICAID, SELFPAY ==
[2024-11-09 14:08] LABS: Giardia Lamblia, Stool EIA Negative (Negative); Pancreatic Elastase, Fecal 98 (>200)
[2024-11-10 08:09] LABS: Calprotectin, Stool 13 ug/g (0-120)
== END | disposition home or self-care (01) ==
LOC: MTLAB 09:29
PROVIDERS: PCP Internal Medicine; Referring Provider Student in an Organized Health Care Education/Training Program; Visit Provider Student in an Organized Health Care Education/Training Program
DX: K58.9 Irritable bowel syndrome, unspecified (principal); R19.5 Other fecal abnormalities
CPT/HCPCS: 82653; 83993; 87329; 87493; 87506

== ENCOUNTER → 2024-11-25 | Outpatient (CLI) | payer MEDICAID, SELFPAY ==
--- NOTE | 2024-11-25 13:15 | MRI_ITS ---
PROCEDURE: SPINE LUMBAR (ROUTINE) 11/25/2024 REASON FOR EXAM: PAIN TECHNIQUE: Multiplanar and multisequence images were obtained without IV contrast administration. COMPARISON: None FINDINGS: Vertebral body heights are within normal limits. Negative for fracture or marrow replacement. Alignment is intact. Conus medullaris is within normal limits and terminates at L1. No paraspinal mass. L1-2: No focal disc abnormality, spinal stenosis or foraminal narrowing. L2-3: No focal disc abnormality, spinal stenosis or foraminal narrowing. L3-4: No focal disc abnormality, spinal stenosis or foraminal narrowing. L4-5: No focal disc abnormality, spinal stenosis or foraminal narrowing. L5-S1: Minimal posterior disc bulge. No significant spinal stenosis. Minimal left foraminal narrowing. MRI/Spine Lumbar (Routine) IMPRESSION: No significant disc abnormality, spinal stenosis or foraminal narrowing. Reading Location: [id number]
== END | disposition home or self-care (01) ==
LOC: MRI 13:10
PROVIDERS: PCP Internal Medicine; Referring Provider Student in an Organized Health Care Education/Training Program; Visit Provider Student in an Organized Health Care Education/Training Program
DX: M54.16 Radiculopathy, lumbar region (principal)
CPT/HCPCS: 72148

== ENCOUNTER → 2025-03-09 | Outpatient (CLI) | payer MEDICAID, SELFPAY ==
[2025-03-09 12:34] LABS: Hematocrit 41.6 % (40-54); Hemoglobin 14.5 g/dL (13.0-16.5); Immature Granulocytes Count 0.010 X10^3/uL (0.0-0.0); Mean Corp Hgb Conc 34.9 g/dL (32-36); Mean Corpuscular Volume 87.8 fL (80-94); Mean Platelet Vol. 10.0 fl (6.2-12.0); NRBC Flagged by Analyzer 0 % (0-5); Platelet Count 332 K/mm3 (150-450); RBC Distribution Width CV 11.9 % (11.6-14.6); RBC Distribution Width SD 38.0 fl (35.1-43.9); Red Blood Count 4.74 M/mm3 (4.6-6.2); White Blood Count 4.9 K/mm3 (4.4-11.0)
[2025-03-09 13:14] LABS: AST(SGOT) 16 U/L (<=37); Alanine Aminotransfer ALT/SGPT 7 U/L (<=46); Albumin, Serum 4.4 g/dL (3.5-5.0); Alkaline Phosphatase 126 U/L (40-129); Anion Gap 11 (5-15); BUN 17 mg/dL (4-19); BUN/Creat Ratio 16.9 RATIO (10-20); Calcium,Total 9.5 mg/dL (7.6-11.0); Carbon Dioxide 25.6 mmol/L (21.0-32.0); Chloride 101 mmol/L (98-108); Globulin 3.0 g/dL (2.2-4.2); Glucose 268 mg/dL (70-99); Potassium 4.7 mmol/L (3.3-5.1)
== END | disposition home or self-care (01) ==
LOC: BIMLAB 11:22
PROVIDERS: PCP Internal Medicine; Referring Provider Internal Medicine; Visit Provider Internal Medicine
DX: F32.A Depression, unspecified (principal); F41.9 Anxiety disorder, unspecified
CPT/HCPCS: 36415; 80053; 85025

== ENCOUNTER → 2025-04-06 | Outpatient (CLI) | payer MEDICAID, SELFPAY ==
[2025-04-06 11:30] LABS: Creatinine, Urine (random) 56.60 mg/dL (39.00-259.00); Microalbumin,Random Urine < 12.0 mg/L (<20 mg/L)
[2025-04-06 11:46] LABS: Cholesterol 157 mg/dL (<=200); Low Density Lipoprotein Calc. 64 mg/dL; Triglycerides 290 mg/dL; Very Low Density Lipoprotein 58 mg/dL (5-40); Vitamin D,25 Hydroxy 10.6 ng/mL (30-100); cholesterol:hdl ratio screen 4.47
== END | disposition home or self-care (01) ==
LOC: LAB 10:30
PROVIDERS: PCP Internal Medicine; Referring Provider Nurse Practitioner Family; Visit Provider Nurse Practitioner Family
DX: E10.65 Type 1 diabetes mellitus with hyperglycemia (principal)
CPT/HCPCS: 36415; 80061; 82043; 82306; 82570; 84443

== ENCOUNTER → 2025-05-11 | Outpatient (CLI) | payer MEDICAID, SELFPAY ==
--- OUTSIDE RECORDS SUMMARY | 2025-05-11 07:02 | XMS RPT_ITS | CCD ---
Author Organization [facility] Care Team Providers Care Kier Boiler Name Role Phone Bella VILLEGAS, Daily Carlie Unavailable Joaquin CIVIL ENGINEER HELPER, Melania L Unavailable Unavailable Joaquin CIVIL ENGINEER HELPER, Melania L Unavailable Unavailable JOE MCKEON RSoco Unavailable Unavailable JOE MCKEON RSoco Unavailable Unavailable ALFRED KATZ Unavailable Unavailable MCMORROW, TREVER Unavailable Unavailable RAGHUNATHAN, SAL Unavailable Unavailable Joaquin CIVIL ENGINEER HELPER, Melania L Unavailable Unavailable Erendira, Renea L Unavailable Joaquin CIVIL ENGINEER HELPER, Melania L Unavailable Unavailable Joaquin CIVIL ENGINEER HELPER, Melania L Unavailable Unavailable Dr. Alfred Katz Primary Care Provider [phone] Dr. Alfred Katz Attending Provider [phone] Dr. Alfred Katz Referring Provider [phone] Dr. Marvin Helton Attending Provider [phone] Alfred Katz Primary Care Provider [phone] Dr. Alfred Katz Attending Provider [phone] Dr. Alfred Katz Referring Provider [phone] Alfred Katz MD Primary Care Provider [phone] Dr. Alfred Katz Primary Care Provider [phone] Dr. Kaleb Davies Emergency Provider Dr. Ninoska Welch Admit Provider Dr. Ninoska Welch Attending Provider Dr. Ninoska Welch Other Provider Dr. Kalyani Hampton Other Provider Dr. Alfred Katz Primary Care Provider Dr. Kaleb Davies Emergency Provider Dr. Ninoska Welch Admit Provider Dr. Ninoska Welch Attending Provider Yuri, Dr. Xiao Other Provider Memo, Dr. Auguste Other Provider Dr. Alfred Katz Referring Provider Dr. Marvin Helton Attending Provider Alfred Katz MD Primary Care Provider ALFRED KATZ Primary Care Unavailable ALFRED KATZ Primary Care Unavailable PATRICIO DAWN Attending Unavailable Dr. Alfred Katz MD Primary Care Provider Dr. Alfred Katz MD Attending Provider [phone] Dr. Alfred Katz MD Referring Provider Darrion MARQUISCSarahi Attending Provider Maria Elena Matthews Attending Provider Stef Dickerson Attending Provider Criss Keenan Attending Provider Dr. Valente Barone MD Attending Provider Dr. Chapo Dukes DO Emergency Provider Dr. Chapo Dukes DO Attending Provider Maria Elena Matthews Referring Provider Dr. Alfred Katz MD Primary Care Provider Dr. Alfred Katz MD Referring Provider Dr. Alfred Katz MD Attending Provider [phone] Criss Keenan Referring Provider Gianna CHAPMAN, Dr. Schroeder Primary Care Provider Gianna CHAPMAN, Dr. Scrhoeder Referring Provider [phone] Gianna CHAPMAN, Dr. Schroeder Attending Provider [phone] Maria Elena Matthews Attending Provider Gianna CHAPMAN, Dr. Schroeder Primary Care Physician Gianna CHAPMAN, Dr. Schroeder Referring Provider [phone] Maria Elena Matthews Attending Physician [phone] Criss Keenan Attending Physician Gianna CHAPMAN, Dr. Schroeder Attending Physician [phone] Gianna CHAPMAN, Dr. Schroeder Primary Care Physician Gianna CHAPMAN, Dr. Schroeder Referring Provider [phone] Maria Elena Matthews Attending Physician [phone] Gianna CHAPMAN, Dr. Schroeder Primary Care Physician Darrion VILLEGAS-Sarahi Parekh Attending Physician Darrion DEPUTY GENERAL COUNSEL-CSarahi Referring Provider Sarahi Maier Attending Unavailable Oleghe, Efewongbe Referring Unavailable Oleghe, Efewongbe Primary Care Unavailable Criss Alonso Attending Unavailable Oleghe, Efewongbe Referring Unavailable Oleghe, Efewongbe Primary Care Unavailable Oleghe, Efewongbe Primary Care Unavailable Oleghe, Efewongbe Referring Unavailable Oleghe, Efewongbe Attending Unavailable Oleghe, Efewongbe Referring Unavailable Maria Elena Prater Attending Unavailable Oleghe, Efewongbe Primary Care Unavailable Oleghe, Efewongbe Referring Unavailable Oleghe, Efewongbe Primary Care Unavailable Stef Dickerson Attending Unavailable Oleghe, Efewongbe Referring Unavailable Oleghe, Efewongbe Primary Care Unavailable Ungerer, Claire Attending Unavailable Oleghe, Efewongbe Attending Unavailable Oleghe, Efewongbe Primary Care Unavailable Oleghe, Efewongbe Referring Unavailable Maria Elena Prater Referring Unavailable Maria Elena Prater Attending Unavailable Oleghe, Efewongbe Primary Care Unavailable Oleghe, Efewongbe Attending Unavailable Oleghe, Efewongbe Primary Care Unavailable Oleghe, Efewongbe Referring Unavailable Oleghe, Efewongbe Attending Unavailable Oleghe, Efewongbe Primary Care Unavailable Oleghe, Efewongbe Primary Care Unavailable Valente Barone Attending Unavailable Chapo Dukes Attending Unavailable Oleghe, Efewongbe Primary Care Unavailable Criss Alonso Referring Unavailable Criss Alonso Attending Unavailable Oleghe, Efewongbe Primary Care Unavailable Oleghe, Efewongbe Primary Care Unavailable Isabelerer Claire Referring Unavailable UngChikis georgeica Attending Unavailable Sarahi Maier Attending Unavailable Oleghe, Efewongbe Primary Care Unavailable Sarahi Maier Referring Unavailable Oleghe, Efewongbe Attending Unavailable Oleghe, Efewongbe Referring Unavailable Oleghe, Efewongbe Primary Care Unavailable Oleghe, Efewongbe Referring Unavailable Oleghe, Efewongbe Primary Care Unavailable Maria Elena Prater Attending Unavailable Oleghe, Efewongbe Referring Unavailable Oleghe, Efewongbe Primary Care Unavailable Maria Elena Prater Attending Unavailable Oleghe, Efewongbe Referring Unavailable Oleghe, Efewongbe Attending Unavailable Oleghe, Efewongbe Primary Care Unavailable Sarahi Maier Attending Unavailable Oleghe, Efewongbe Referring Unavailable Oleghe, Efewongbe Primary Care Unavailable Medications Current Medications Medication Drug Class(es) Dates Sig (Normalized) Sig (Original) 8 hr acetaminophen 650 mg extended release oral tablet (20 sources) Start: 08-14-2023 Start: 08-11-2020 End: 07-08-2023 take 1 tablet by mouth every twelve hours Acetaminophen (Tylenol Arthritis Pain) 650 mg tablet extended release Discontinued 650 mg PO Q12H August 11, 2020 1:00am July 08, 2023 10:53am take 2 tablets by mo uth every six hours as needed acetaminophen (TYLENOL) 325 mg tablet Take 650 mg by mouth every 6 hours as needed. 0 Active Comment on above: Take 650 mg by mouth every 6 hours as needed. amylase 118925 unt / lipase 19550 unt / protease [id number] unt delayed release oral capsule (4 sources) Start: 11-10-2024 End: 04-06-2025 take 3 capsules by mouth three times daily at mealtime, then take 2 capsules by mouth at mealtime baclofen 10 mg oral tablet (16 sources) gamma-Aminobutyric Acid-ergic Agonist Start: 01-09-2024 End: 04-15-2024 take 1 tablet by mouth twice daily as needed for muscle spasms Blood-Glucose Sensor (Freestyle Celena 3 Plus Sensor) device (8 sources) Start: 10-19-2024 Blood-Glucose Sensor (Freestyle Celena 3 Plus Sensor) device Active 0 .Route 2 October 19, 2024 12:00am As directed Start: 10-19-2024 Blood-Glucose Sensor (Freestyle Celena 3 Plus Sensor) device Active 0 .Route 2 October 19, 2024 12:00am As directed cetirizine hydrochloride 10 mg oral capsule (1 source) Histamine-1 Receptor Antagonist Start: 04-06-2025 take 1 capsule by mouth once daily as needed cholecalciferol 0.05 mg oral capsule (20 sources) Vitamin D Start: 04-06-2025 take 1 capsule by mouth once daily Start: 12-30-2022 End: 07-08-2023 take 1 capsule by mouth every week Cholecalciferol (Vitamin D3) 1,250 mcg (50,000 unit) capsule Discontinued 1250 ug PO EVERY WEEK 12 December 30, 2022 12:00am July 08, 2023 11:42am SUPPLEMENT Start: 08-11-2020 End: 07-29-2022 take 1 capsule by mouth every week Cholecalciferol (Vitamin D3) 1,250 mcg (50,000 unit) capsule Discontinued 1250 ug PO EVERY WEEK 09 26November 05, 2021 3:07pm July 29, 2022 3:21pm Start: 10-15-2016 take 1 capsule by [facility] every week cholecalciferol, Vitamin D3, (VITAMIN D3) 50,000 unit cap capsule Indications: Vitamin D deficiency Take 1 capsule by mouth once each week. 12 capsule 1 10/15/2016 Active Comment on above: Take 1 capsule by mo [facility] once each week. citalopram 20 mg oral tablet (20 sources) Serotonin Reuptake Inhibitor Start: 02-04-2017 take 1 tablet by mouth once daily citalopram (CELEXA) 20 mg tablet Take 1 tablet by mouth once daily. 90 tablet 1 02/04/2017 Active Start: 05-17-2016 End: 11-21-2017 take 4 tablets by mouth once daily Citalopram 10 MG tablet Discontinued 40 mg PO DAILY May 17, 2016 1:00am November 21, 2017 10:01am MENTAL HEALTH Start: 05-17-2016 End: 11-21-2017 take 40 mg by mouth once daily Citalopram Discontinued 40 MG PO DAILY May 17, 2016 1:00am November 21, 2017 10:01am Comment on above: Take 1 tablet by [facility] once daily. cyclobenzaprine hydrochloride 10 mg oral tablet (1 source) Muscle Relaxant Start: 12-17-19 take 1 tablet by mouth every eight hours as needed cyclobenzaprine (FLEXERIL) 10 mg tablet Take 1 tablet by mouth three times a day as needed. 15 tablet 0 12/17/2023 Active diphenhydrAMINE hydrochloride 25 mg oral capsule (1 source) Histamine-1 Receptor Antagonist Start: 04-06-20 take 1 capsule by mouth at bedtime as needed doxycycline hyclate 100 mg oral tablet (1 source) Tetracycline-class Drug Start: 12-17-19 End: 12-24-19 take 1 tablet by mouth twice daily doxycycline (VIBRA-TABS) 100 mg tablet Take 1 tablet by mouth two times a day for 7 days. 14 tablet 0 12/17/2023 12/24/2023 Active 3 ml insulin degludec 100 unt/ml pen injector (16 sources) Insulin Analog Start: 10-18-19 insulin degludec (TRESIBA FLEXTOUCH) 100 unit/mL (3 mL) injection pen INJECT 18 UNITS SUBCUTANEOUSLY AT BEDTIME 0 10/18/2023 Active Start: 08-11-2023 End: 01-22-2024 Insulin Degludec (Tresiba Fl extouch U-100) 100 unit/mL (3 mL) insulin pen Discontinued 18 U SC AT BEDTIME 15 August 14, 2023 1:01pm January 22, 2024 3:28pm Start: 08-16-2022 End: 12-30-2022 Insulin Degludec (Tresiba Fl extouch U-100) 100 unit/mL (3 mL) insulin pen Discontinued 18 U SC AT BEDTIME 15 6 November 13, 2022 3:37pm December 30, 2022 1:08pm Insulin Degludec (Tresiba Flextouch U-100) 100 unit/mL (3 mL) insulin pen (20 sources) Start: 01-22-2024 Insulin Deglud ec (Tresiba Flextouch U-100) 100 unit/mL (3 mL) insulin pen Active 18 U SC AT BEDTIME 15 4 January 22, 2024 3:27pm Start: 01-22-2024 Insulin Deglud ec (Tresiba Flextouch U-100) 100 unit/mL (3 mL) insulin pen Active 18 U SC AT BEDTIME 15 January 22, 2024 3:27pm Start: 08-14-2023 End: 01-22-2024 Insulin Degludec (Tresiba Fl extouch U-100) 100 unit/mL (3 mL) insulin pen Discontinued 18 U SC AT BEDTIME 15 4 August 14, 2023 1:01pm January 22, 2024 3:28pm Start: 08-14-2023 End: 01-22-2024 Insulin Degludec (Tresiba Fl extouch U-100) 100 unit/mL (3 mL) insulin pen Discontinued 18 U SC AT BEDTIME August 14, 2023 1:01pm January 22, 2024 3:28pm Start: 08-14-2023 Insulin Deglud ec (Tresiba Flextouch U-100) 100 unit/mL (3 mL) insulin pen Active 18 UNIT SC AT BEDTIME 15 August 14, 2023 1:01pm Start: 08-11-2023 End: 08-14-2023 Insulin Degludec (Tresiba Fl extouch U-100) 100 unit/mL (3 mL) insulin pen Discontinued 18 U SC AT BEDTIME 15 0 August 11, 2023 6:03pm August 14, 2023 1:01pm Start: 08-11-2023 End: 08-14-2023 Insulin Degludec (Tresiba Fl extouch U-100) 100 unit/mL (3 mL) insulin pen Discontinued 18 U SC AT BEDTIME August 11, 2023 6:03pm August 14, 2023 1:01pm Start: 08-11-2023 End: 08-14-2023 Insulin Degludec (Tresiba Fl extouch U-100) 100 unit/mL (3 mL) insulin pen Discontinued 18 UNIT SC AT BEDTIME August 11, 2023 6:03pm August 14, 2023 1:01pm Start: 11-13-2022 End: 12-30-2022 Insulin Degludec (Tresiba Fl extouch U-100) 100 unit/mL (3 mL) insulin pen Discontinued 18 U SC AT BEDTIME 05 12November 13, 2022 3:37pm December 30, 2022 1:08pm Start: 11-13-2022 End: 12-30-2022 Insulin Degludec (Tresiba Fl extouch U-100) 100 unit/mL (3 mL) insulin pen Discontinued 18 U SC AT BEDTIME November 13, 2022 3:37pm December 30, 2022 1:08pm Start: 11-13-2022 End: 12-30-2022 Insulin Degludec (Tresiba Fl extouch U-100) 100 unit/mL (3 mL) insulin pen Discontinued 18 UNIT SC AT BEDTIME November 13, 2022 3:37pm December 30, 2022 1:08pm Start: 11-13-2022 End: 12-30-2022 Insulin Degludec (Tresiba Fl extouch U-100) 100 unit/mL (3 mL) insulin pen Discontinued 18 UNIT SC AT BEDTIME November 13, 2022 2:37pm December 30, 2022 12:08pm Start: 11-13-2022 Insulin Deglud ec (Tresiba Flextouch U-100) 100 unit/mL (3 mL) insulin pen Active 18 UNIT SC AT BEDTIME November 13, 2022 3:37pm Start: 08-16-2022 End: 11-13-2022 Insulin Degludec (Tresiba Fl extouch U-100) 100 unit/mL (3 mL) insulin pen Discontinued 18 U SC AT BEDTIME 05 12August 16, 2022 1:00am November 13, 2022 3:38pm Start: 08-16-2022 End: 11-13-2022 Insulin Degludec (Tresiba Fl extouch U-100) 100 unit/mL (3 mL) insulin pen Discontinued 18 U SC AT BEDTIME August 16, 2022 1:00am November 13, 2022 3:38pm Start: 08-16-2022 End: 11-13-2022 Insulin Degludec (Tresiba Fl extouch U-100) 100 unit/mL (3 mL) insulin pen Discontinued 18 UNIT SC AT BEDTIME August 16, 2022 12:00am November 13, 2022 2:38pm Start: 08-16-2022 End: 11-13-2022 Insulin Degludec (Tresiba Fl extouch U-100) 100 unit/mL (3 mL) insulin pen Discontinued 18 UNIT SC AT BEDTIME August 16, 2022 1:00November 13, 2022 3:38pm INSULIN GLARGINE,HUM.REC.ANLOG (BASAGLAR KWIKPEN SUBCUTANEOUS) (2 sources) inject 30 [IU] by subcutaneous injection once daily before breakfast INSULIN GLARGINE,HUM.REC.ANLOG (BASAGLAR KWIKPEN SUBCUTANEOUS) Inject 30 Units subcutaneously daily before breakfast. 0 Active Comment on above: Inject 30 Units subc utaneously daily before breakfast. Xdktnm-Iwdlqjlm-Ypfuupf (Zenpep) 40,000-126,000- 168,000 unit capsule,delayed release(DR/EC) (2 sources) Sta rt: take 1-2 capsules by mouth three times daily at mealtime Wwnosl-Aoabozpt-Krsydiu (Zenpep) 40,000-126,000- 168,000 unit capsule,delayed release(DR/EC) Active 2 NMA PO THREE TIMES A DAY November 10, 2024 12:00am administer with meals and/or snacks. 2-3 with meals and 1-2 with snacks Start: 11-10-2024 take 1-2 capsules by mouth three times daily at mealtime Ikdgku-Zwqsvteo-Qdikneh (Zenpep) 40,000-126,000- 168,000 unit capsule,delayed release(DR/EC) Active 2 NMA PO THREE TIMES A DAY 300 November 10, 2024 12:00am administer with meals and/or snacks. 2-3 with meals and 1-2 with snacks loperamide hydrochloride 2 mg oral tablet (8 sources) Opioid Agonist Start: 10-27-2024 take 1 tablet by mouth every six hours as needed naproxen 500 mg oral tablet (1 source) Nonsteroidal Anti-inflammatory Drug Start: 12-17-2023 take 1 tablet by mouth every twelve hours as needed naproxen (NAPROSYN) 500 mg tablet Take 1 tablet by mouth two times a day as needed (for pain/inflammat ion). Take with food. 14 tablet 0 12/17/2023 Active OLANZapine 5 mg oral tablet (8 sources) Atypical Antipsychotic Start: 04-19-2024 take 1 tablet by mouth at bedtime omeprazole 40 mg delayed release oral capsule (20 sources) Proton Pump Inhibitor Start: 07-19-2024 take 1 capsule by mouth once daily Start: 08-14-2023 End: 07-19-2024 take 1 capsule by mouth once daily Omeprazole 20 mg capsule,delayed release(DR/EC) Discontinued 20 mg PO DAILY August 14, 2023 1:00am July 19, 2024 6:09pm Start: 07-26-2020 End: 08-11-2020 Omeprazole 40 MG capsule,del ayed release(DR/EC) Discontinued 1 NMA PO DAILY 14 0 July 26, 2020 1:00am August 11, 2020 10:12am Start: 11-21-2017 End: 09-17-2018 take 1 capsule by mouth once daily Omeprazole 20 mg capsule,delayed release(DR/EC) Discontinued 20 mg PO daily 90 2 November 21, 2017 12:00am September 17, 2018 1:50pm Start: 09-09-2016 End: 07-08-2023 take 1 capsule by mouth once daily Omeprazole 40 mg capsule,delayed release(DR/EC) Discontinued 40 mg PO DAILY 90 2 December 01, 2020 12:43pm July 08, 2023 11:42am ACID REFLUX Start: 12-24-2015 End: 06-23-2016 take 1 capsule by mouth twice daily Omeprazole 20 MG capsule Discontinued 20 mg PO TWICE A DAY 60 December 24, 2015 12:00am June 23, 2016 7:47pm Comment on above: take 1 capsule by [facility] once daily sertraline 50 mg oral tablet (8 sources) Serotonin Reuptake Inhibitor Start: 05-13-2024 take 0.5 tablet by mouth once daily, then take 1 tablet by mouth once daily tadalafil 5 mg oral tablet (8 sources) Phosphodiesterase 5 Inhibitor Start: 01-09-2024 take 1 tablet by mouth every twenty-four hours triamcinolone acetonide 1 mg/ml topical cream (1 source) Corticosteroid Start: 04-06-2025 Completed/Discontinued Medications Medication Drug Class(es) Dates Sig (Normalized) Sig (Original) amoxicillin 875 mg / clavulanate 125 mg oral tablet (15 sources) Penicillin-class Antibacterial Start: 02-01-2025 End: 03-09-2025 Amoxicillin-Pot Clavulanate 875-125 mg tablet Discontinued 1 {tbl} PO TWICE A DAY February 01, 2025 12:00am March 09, 2025 10:32am Start: 07-12-2023 End: 08-14-2023 Amoxicillin-Pot Clavulanate 875-125 mg tablet Discontinued 1 {tbl} PO TWICE A DAY 6 3 0 July 12, 2023 1:00am August 14, 2023 12:41pm Start: 07-12-2023 End: 08-14-2023 take 1 tablet by mouth twice daily Amoxicillin-Pot Clavulanate Discontinued 1 TABLET PO TWICE A DAY 6 3 July 12, 2023 1:00am August 14, 2023 12:41pm ARIPiprazole 2 mg oral tablet (20 sources) Atypical Antipsychotic Start: 08-12-2019 End: 09-09-2019 take 1 tablet by mouth at bedtime Aripiprazole 2 mg tablet Discontinued 0 .ROUTE .COMPLEX 30 September 02, 2019 10:13am September 09, 2019 4:47pm take 1 tablet by mouth at bedtime Start: 08-12-2019 End: 09-09-2019 take 1 tablet by mouth at bedtime Aripiprazole Discontinued 0 .ROUTE .COMPLEX September 02, 2019 10:13am September 09, 2019 4:47pm take 1 tablet by mouth at bedtime Start: 08-11-2019 End: 08-12-2019 take 1 tablet by mouth at bedtime Aripiprazole 5 mg tablet Discontinued 5 mg PO AT BEDTIME 30 2 August 11, 2019 4:46pm August 12, 2019 5:47pm Start: 07-09-2019 End: 08-11-2019 take 1 tablet by mouth at bedtime Aripiprazole 2 mg tablet Discontinued 2 mg PO AT BEDTIME 30 July 09, 2019 1:00am August 11, 2019 4:47pm azithromycin 250 mg oral tablet (4 sources) Macrolide Antimicrobial Start: 02-01-2025 End: 03-09-2025 Azithromycin 250 mg tablet Discontinued mg PO February 01, 2025 12:00am March 09, 2025 10:32am Blood-Glucose Sensor (Freestyle Celena 3 Sensor) device (17 sources) Start: 01-22-2024 End: 10-19-2024 Blood-Glucose Sensor (Freestyle Celena 3 Sensor) device Discontinued 0 .Route 2 January 22, 2024 3:28pm October 19, 2024 10:56am As directed Start: 01-22-2024 End: 10-19-2024 Blood-Glucose Sensor (Freest yle Celena 3 Sensor) device Discontinued 0 .Route 2 January 22, 2024 3:28pm October 19, 2024 10:56am As directed Start: 08-14-2023 End: 01-22-2024 Blood-Glucose Sensor (Freest yle Celena 3 Sensor) device Discontinued 0 .Route 2 August 14, 2023 1:00am January 22, 2024 3:28pm As directed Start: 08-14-2023 End: 01-22-2024 Blood-Glucose Sensor (Freest yle Celena 3 Sensor) device Discontinued 0 .Route 2 August 14, 2023 1:00am January 22, 2024 3:28pm As directed Start: 08-14-2023 Blood-Glucose Sensor (Freestyle Celena 3 Sensor) device Active 0 .Route 2 August 14, 2023 1:00am As directed cariprazine 1.5 mg oral capsule (20 sources) Atypical Antipsychotic Start: 04-15-2024 End: 04-19-2024 take 1 capsule by mouth once daily Cariprazine (Vraylar) 1.5 mg capsule Discontinued 1.5 mg PO DAILY 90 April 15, 2024 3:30pm April 19, 2024 4:27pm Start: 04-26-2022 End: 07-08-2023 take 1 capsule by mouth once daily Cariprazine (Vraylar) 1.5 mg capsule Discontinued 1.5 mg PO DAILY 30 1 July 01, 2022 10:37am July 08, 2023 11:42am DEPRESSION clobetasol propionate 0.0005 mg/mg topical ointment (20 sources) Corticosteroid Start: 11-02-2021 End: 07-08-2023 Clobetasol 0.05 % ointment Discontinued 1 NMA TOPICAL DAILY 15 0 November 02, 2021 2:42pm July 08, 2023 11:42am ITCHING/REDNESS Start: 08-11-2020 End: 07-08-2023 Clobetasol 0.05 % ointment D iscontinued 1 NMA TOPICAL DAILY 15 0 August 11, 2020 1:00am November 02, 2021 2:42pm DULoxetine 30 mg delayed release oral capsule (20 sources) Serotonin and Norepinephrine Reuptake Inhibitor Start: 10-01-2019 End: 08-11-2020 take 1 capsule by mouth twice daily Duloxetine 30 mg capsule,delayed release(DR/EC) Discontinued 30 mg PO TWICE A DAY 180 3 October 01, 2019 1:37pm August 11, 2020 9:43am Start: 09-09-2019 End: 10-01-2019 take 2 capsules by mouth twice daily Duloxetine 30 mg capsule,delayed release(DR/EC) Discontinued 60 mg PO TWICE A DAY September 09, 2019 5:37pm October 01, 2019 1:37pm Start: 09-09-2019 End: 10-01-2019 take 60 mg by mouth twice daily Duloxetine Discontinued 60 MG PO TWICE A DAY September 09, 2019 5:37pm October 01, 2019 1:37pm Start: 09-09-2019 End: 09-09-2019 take 3 capsules by mouth twice daily Duloxetine 30 mg capsule,delayed release(DR/EC) Discontinued 90 mg PO TWICE A DAY September 09, 2019 4:47pm September 09, 2019 5:37pm Start: 09-09-2019 End: 09-09-2019 take 90 mg by mouth twice daily Duloxetine Discontinued 90 MG PO TWICE A DAY September 09, 2019 4:47pm September 09, 2019 5:37pm Start: 06-07-2019 End: 09-09-2019 take 1 capsule by mouth twice daily Duloxetine 30 mg capsule,delayed release(DR/EC) Discontinued 30 mg PO TWICE A DAY 60 3 June 07, 2019 1:00am September 09, 2019 4:47pm escitalopram 20 mg oral tablet (20 sources) Serotonin Reuptake Inhibitor Start: 01-06-2018 End: 02-05-2019 take 1 tablet by mouth once daily Escitalopram Oxalate 20 MG tablet Discontinued 20 mg PO DAILY November 04, 2018 6:21pm February 05, 2019 9:29am depression Start: 11-21-2017 End: 01-06-2018 take 1 tablet by mouth once daily Escitalopram Oxalate 10 mg tablet Discontinued 10 mg PO daily 90 2 November 21, 2017 12:00am January 06, 2018 3:28pm Flash Glucose Scanning Reade r (Freestyle Celena 14 Day Fowler) misc (14 sources) Start: 05-19-2018 End: 09-14-2018 Flash Glucose Scanning Reade r (Freestyle Celena 14 Day Fowler) misc Discontinued 0 .ROUTE .MEDSUPPLY 1 0 May 19, 2018 1:00am September 14, 2018 8:41pm Type 1 diabetes mellitus without complications As directed Start: 05-19-2018 End: 09-14-2018 Flash Glucose Scanning Reade r (Freestyle Celena 14 Day Fowler) misc Discontinued 0 .ROUTE .MEDSUPPLY 1 May 19, 2018 1:00am September 14, 2018 8:41pm As directed Start: 05-19-2018 End: 09-14-2018 Flash Glucose Scanning Reade r (Freestyle Celena 14 Day Fowler) misc Discontinued 0 .ROUTE .MEDSUPPLY May 19, 2018 12:00am September 14, 2018 7:41pm As directed Flash Glucose Scanning Reade r (Freestyle Celena 2 Fowler) misc (14 sources) Start: 08-18-2020 End: 10-19-2024 Flash Glucose Scanning Reade r (Freestyle Celena 2 Fowler) misc Discontinued 0 .ROUTE .MEDSUPPLY 1 0 August 18, 2020 1:00am October 19, 2024 10:56am As directed Start: 08-18-2020 End: 10-19-2024 Flash Glucose Scanning Reade r (Freestyle Celena 2 Fowler) misc Discontinued 0 .ROUTE .MEDSUPPLY 1 August 18, 2020 1:00am October 19, 2024 10:56am As directed Start: 08-18-2020 Flash Glucose Scanning Fowler (Freestyle Celena 2 Fowler) misc Active 0 .ROUTE .MEDSUPPLY 1 August 18, 2020 1:00am As directed Start: 08-18-2020 Flash Glucose Scanning Fowler (Freestyle Celena 2 Fowler) misc Active 0 .ROUTE .MEDSUPPLY 1 August 18, 2020 12:00am As directed Flash Glucose Sensor (Freestyle Celena 14 Day Sensor) kit (14 sources) Start: 05-19-2018 End: 09-14-2018 Flash Glucose Sensor (Freest yle Celena 14 Day Sensor) kit Discontinued 0 .ROUTE .MEDSUPPLY 1 May 19, 2018 1:00am September 14, 2018 8:41pm Type 1 diabetes mellitus without complications As directed Start: 05-19-2018 End: 09-14-2018 Flash Glucose Sensor (Freest yle Celena 14 Day Sensor) kit Discontinued 0 .ROUTE .MEDSUPPLY 1 May 19, 2018 1:00am September 14, 2018 8:41pm As directed Start: 05-19-2018 End: 09-14-2018 Flash Glucose Sensor (Freest yle Celena 14 Day Sensor) kit Discontinued 0 .ROUTE .MEDSUPPLY 1 May 19, 2018 12:00am September 14, 2018 7:41pm As directed Flash Glucose Sensor (Freestyle Celena 2 Sensor) kit (20 sources) Start: 02-19-2023 End: 04-06-2025 Flash Glucose Sensor (Freest yle Celena 2 Sensor) kit Discontinued 0 .ROUTE .MEDSUPPLY 2 February 19, 2023 1:37pm April 06, 2025 9:53am Type 1 diabetes mellitus Type 1 diabetes mellitus with hyperglycemia 1 sensor q 14 days Start: 02-19-2023 Flash Glucose Sensor (Freestyle Celena 2 Sensor) kit Active 0 .ROUTE .MEDSUPPLY 2 February 19, 2023 1:37pm Type 1 diabetes mellitus Type 1 diabetes mellitus with hyperglycemia 1 sensor q 14 days Start: 02-19-2023 Flash Glucose Sensor (Freestyle Celena 2 Sensor) kit Active 0 .ROUTE .MEDSUPPLY 2 February 19, 2023 1:37pm 1 sensor q 14 days Start: 02-19-2023 Flash Glucose Sensor (Freestyle Celena 2 Sensor) kit Active 0 .ROUTE .MEDSUPPLY 2 February 19, 2023 12:37pm 1 sensor q 14 days Start: 04-29-2022 End: 02-19-2023 Flash Glucose Sensor (Freest yle Celena 2 Sensor) kit Discontinued 0 .ROUTE .MEDSUPPLY 2 April 29, 2022 8:58am February 19, 2023 1:37pm As directed Start: 04-29-2022 End: 02-19-2023 Flash Glucose Sensor (Freest yle Celena 2 Sensor) kit Discontinued 0 .ROUTE .MEDSUPPLY 2 April 29, 2022 8:58am February 19, 2023 1:37pm As directed Start: 04-29-2022 End: 02-19-2023 Flash Glucose Sensor (Freest yle Celena 2 Sensor) kit Discontinued 0 .ROUTE .MEDSUPPLY 2 April 29, 2022 7:58am February 19, 2023 12:37pm As directed Start: 04-29-2022 Flash Glucose Sensor (Freestyle Celena 2 Sensor) kit Active 0 .ROUTE .MEDSUPPLY 2 April 29, 2022 8:58am As directed Start: 04-29-2022 Flash Glucose Sensor (Freestyle Celena 2 Sensor) kit Active 0 .ROUTE .MEDSUPPLY 2 April 29, 2022 7:58am As directed Start: 04-26-2022 End: 04-29-2022 Flash Glucose Sensor (Freest yle Celena 2 Sensor) kit Discontinued 0 .ROUTE .MEDSUPPLY 2 April 26, 2022 3:35pm April 29, 2022 8:58am As directed Start: 04-26-2022 End: 04-29-2022 Flash Glucose Sensor (Freest yle Celena 2 Sensor) kit Discontinued 0 .ROUTE .MEDSUPPLY April 26, 2022 3:35pm April 29, 2022 8:58am As directed Start: 04-26-2022 End: 04-29-2022 Flash Glucose Sensor (Freest yle Celena 2 Sensor) kit Discontinued 0 .ROUTE .MEDSUPPLY April 26, 2022 2:35pm November 7th, 2022 7:58am As directed Start: 07-02-2021 End: 04-26-2022 Flash Glucose Sensor (Freest yle Celena 2 Sensor) kit Discontinued 0 .ROUTE .MEDSUPPLY 2 8 July 02, 2021 4:15pm April 26, 2022 3:35pm As directed Start: 07-02-2021 End: 04-26-2022 Flash Glucose Sensor (Freest yle Celena 2 Sensor) kit Discontinued 0 .ROUTE .MEDSUPPLY 2 July 02, 2021 4:15pm April 26, 2022 3:35pm As directed Start: 07-02-2021 End: 04-26-2022 Flash Glucose Sensor (Freest yle Celena 2 Sensor) kit Discontinued 0 .ROUTE .MEDSUPPLY 2 July 02, 2021 3:15pm April 26, 2022 2:35pm As directed Start: 08-18-2020 End: 07-02-2021 Flash Glucose Sensor (Freest yle Celena 2 Sensor) kit Discontinued 0 .ROUTE .MEDSUPPLY 2 August 18, 2020 1:00am July 02, 2021 4:15pm As directed Start: 08-18-2020 End: 07-02-2021 Flash Glucose Sensor (Freest yle Celena 2 Sensor) kit Discontinued 0 .ROUTE .MEDSUPPLY 2 August 18, 2020 1:00am July 02, 2021 4:15pm As directed Start: 08-18-2020 End: 07-02-2021 Flash Glucose Sensor (Freest yle Celena 2 Sensor) kit Discontinued 0 .ROUTE .MEDSUPPLY 2 August 18, 2020 12:00am July 02, 2021 3:15pm As directed glucagon (rdna) 1 mg injection (20 sources) Antihypoglycemic Agent Start: 05-19-2018 End: 07-08-2023 inject 1 mg by intramuscular injection once as needed Glucagon (Human Recombinant) 1 MG recon soln Discontinued 1 mg IM ONCE as needed for HYPOGLYCEMIA November 04, 2018 6:23pm July 08, 2023 11:42am Start: 05-19-2018 End: 11-04-2018 inject 1 mg by intramuscular injection once Glucagon (Human Recombinant) (Glucagon Emergency Kit (Human)) 1 mg recon soln Discontinued 1 MG IM ONCE 1 May 19, 2018 1:00am November 04, 2018 6:24pm Start: 04-08-2017 End: 07-09-2025 GLUCAGON EMERGENCY 1 MG KIT Use in case if low blood sugar and unable to swallow liquids GLUCAGON (RDNA) [id number] Daily Blanco NP Start: 04-08-2017 End: 07-09-2025 GLUCAGON EMERGENCY 1 MG KIT Use in case if low blood sugar and unable to swallow liquids GLUCAGON (RDNA) [id number] Daily Blanco NP GLUCOSE BLOOD (2 sources) Start: 08-01-2016 End: 10-29-2024 FREESTYLE LITE TEST STRP Marisa cks blood glucose 4-5 times per week. GLUCOSE BLOOD [id number] Daily Blanco NP GLUCOSE BLOOD (6 sources) Start: 08-01-2016 End: 10-29-2024 FREESTYLE LITE TEST STRP Marisa cks blood glucose 4-5 times per week. GLUCOSE BLOOD [id number] Daily Blanco NP Start: 08-01-2016 End: 10-29-2024 FREESTYLE LITE TEST STRP Marisa cks blood glucose 4-5 times per week. GLUCOSE BLOOD [id number] Daily Blanco NP 3 ml insulin detemir 100 unt/ml pen injector (20 sources) Insulin Analogue Start: 03-05-2021 End: 08-16-2022 Insulin Detemir U-100 100 unit/mL (3 mL) insulin pen Discontinued 18 U SC DAILY 04 02July 02, 2021 4:15pm August 16, 2022 1:25pm Start: 01-25-2021 End: 03-05-2021 Insulin Detemir U-100 100 un it/mL (3 mL) insulin pen Discontinued 24 U SC DAILY January 25, 2021 5:46pm March 05, 2021 3:56pm Start: 10-26-2019 End: 01-25-2021 Insulin Detemir U-100 100 un it/mL (3 mL) insulin pen Discontinued 24 U SC AT BEDTIME 15 August 11, 2020 9:42am January 25, 2021 5:46pm Start: 10-01-2019 End: 10-26-2019 Insulin Detemir U-100 (Levem ir Flextouch U-100 Insuln) 100 unit/mL (3 mL) insulin pen Discontinued 18 U SC AT BEDTIME 15 3 October 01, 2019 12:00am October 26, 2019 12:22pm Start: 12-18-2016 End: 07-02-2017 Insulin Detemir U-100 100 UN ITS/ML insulin pen Discontinued 20 U SC DAILY December 18, 2016 3:13pm July 02, 2017 11:20am BLOOD SUGAR Start: 12-18-2016 End: 07-02-2017 Insulin Detemir U-100 Discon tinued 20 UNITS SC DAILY December 18, 2016 3:13pm July 02, 2017 11:20am Start: 02-07-2014 End: 12-18-2016 Insulin Detemir U-100 (Levem ir Flextouch U100 Insulin) 100 UNITS/ML Flexpen Discontinued 32 U SC DAILY 6 June 25, 2016 5:43pm December 18, 2016 3:13pm Start: 02-07-2014 End: 12-18-2016 Insulin Detemir U-100 (Levem ir Flextouch U-100 Insuln) 100 UNITS/ML Flexpen Discontinued 32 UNITS SC DAILY 6 June 25, 2016 4:43pm December 18, 2016 2:13pm LEVEMIR 100 UNIT /ML SOLN 32 units daily. INSULIN DETEMIR [id number] Daily Blanco NP LEVEMIR 100 UNIT /ML SOLN 32 units daily. INSULIN DETEMIR [id number] Daily Blanco NP 3 ml insulin glargine 100 unt/ml pen injector (20 sources) Insulin Analogue Start: 06-03-2019 End: 10-01-2019 Insulin Glargine (Basaglar Kwikpen U-100 Insulin) 100 unit/mL (3 mL) insulin pen Discontinued 18 U SC DAILY 15 3 September 09, 2019 5:03pm October 01, 2019 7:45am Start: 09-14-2018 End: 06-03-2019 Insulin Glargine 100 UNIT/ML insulin pen Discontinued 26 U SC DAILY September 14, 2018 8:41pm June 03, 2019 12:43pm dm Start: 05-19-2018 End: 09-14-2018 Insulin Glargine (Basaglar K wikpen U-100 Insulin) 100 unit/mL (3 mL) insulin pen Discontinued 28 U SC daily 15 August 31, 2018 10:59am September 14, 2018 8:41pm Type 1 diabetes mellitus without complications e10.9 Start: 05-04-2018 End: 05-19-2018 Insulin Glargine (Basaglar K wikpen U-100 Insulin) 100 unit/mL (3 mL) insulin pen Discontinued 26 U SC daily May 04, 2018 9:22am May 19, 2018 2:06pm Start: 01-06-2018 End: 05-04-2018 Insulin Glargine (Basaglar K wikpen U-100 Insulin) 100 unit/mL (3 mL) insulin pen Discontinued 27 U SC daily January 06, 2018 3:29pm May 04, 2018 9:23am Start: 09-19-2017 End: 01-06-2018 Insulin Glargine (Basaglar K wikpen U-100 Insulin) 100 unit/mL (3 mL) insulin pen Discontinued 24 U SC daily November 21, 2017 12:00am January 06, 2018 3:29pm Start: 07-02-2017 End: 09-19-2017 Insulin Glargine (Basaglar K wikpen U-100 Insulin) 100 unit/mL (3 mL) insulin pen Discontinued 32 U SC daily 15 August 18, 2017 2:11pm September 19, 2017 5:22pm Type 1 diabetes mellitus without complications Start: 08-12-2016 BASAGLAR KWIKP EN 100 UNIT/ML SOPN Inject 32 units once daily. INSULIN GLARGINE [id number] Daily Blanco NP Start: 08-12-2016 BASAGLAR KWIKP EN 100 UNIT/ML SOPN Inject 32 units once daily. INSULIN GLARGINE [id number] Daily Blanco NP 3 ml insulin lispro 100 unt/ml pen injector (14 sources) Insulin Analog Start: 05-28-2019 End: 06-03-2019 Insulin Lispro 100 UNIT/ML insulin pen Discontinued 0 U SQ THREE TIMES A DAY 1 0 May 28, 2019 1:00am June 03, 2019 11:58am Please contact the information source for Protocol details. Start: 05-28-2019 End: 06-03-2019 Insulin Lispro Discontinued 0 UNIT SQ THREE TIMES A DAY May 28, 2019 1:00am June 03, 2019 11:58am 3 ml insulin aspart, human 100 unt/ml pen injector (20 sources) Insulin Analogue Start: 08-14-2023 End: 01-26-2025 Insulin Aspart U-100 (Novolog Flexpen U-100 Insulin) 100 unit/mL (3 mL) insulin pen Discontinued 20 U SC 3 TIMES DAILY WITH MEALS 15 January 22, 2024 3:28pm January 26, 2025 8:56am DIABETES Start: 11-05-2021 End: 08-14-2023 Insulin Aspart U-100 (Novolo g Flexpen U-100 Insulin) 100 unit/mL (3 mL) insulin pen Discontinued 12 U SC 3 TIMES DAILY WITH MEALS 15 August 11, 2023 6:03pm August 14, 2023 1:01pm DIABETES Start: 06-19-2020 End: 11-05-2021 Insulin Aspart U-100 100 uni t/mL (3 mL) insulin pen Discontinued 10 U SC 3 TIMES DAILY WITH MEALS Protocol: - Use for Total Daily Dose of Insulin 15-27 units- Thin, elderly, renal patientsLOW DOSING ALGORITHM Condition: 150-224 mg/dl = 1 unit Condition: 225-299 mg/dl = 2 units Condition: 300-374 mg/dl = 3 units Condition: 375-499 mg/dl = 4 units Condition: Greater than 449 call physician 15 January 22, 2021 8:46am March 05, 2021 3:56pm Please contact the information source for Protocol details. Start: 06-19-2020 End: 11-05-2021 Insulin Aspart U-100 100 uni t/mL (3 mL) insulin pen Discontinued 10 U SC 3 TIMES DAILY WITH MEALS 15 January 22, 2021 8:46am March 05, 2021 3:56pm Please contact the information source for Protocol details. Start: 03-02-2020 End: 06-19-2020 Insulin Aspart U-100 100 UNI T/ML insulin pen Discontinued 0 U SC 3 TIMES DAILY WITH MEALS Protocol: - Use for Total Daily Dose of Insulin 15-27 units- Thin, elderly, renal patientsLOW DOSING ALGORITHM Condition: 150-224 mg/dl = 1 unit Condition: 225-299 mg/dl = 2 units Condition: 300-374 mg/dl = 3 units Condition: 375-499 mg/dl = 4 units Condition: Greater than 449 call physician March 02, 2020 4:32pm June 19, 2020 5:31pm Please contact the information source for Protocol details. Start: 03-02-2020 End: 06-19-2020 Insulin Aspart U-100 100 UNI T/ML insulin pen Discontinued 0 U SC 3 TIMES DAILY WITH MEALS March 02, 2020 4:32pm June 19, 2020 5:31pm Please contact the information source for Protocol details. Start: 03-02-2020 End: 06-19-2020 Insulin Aspart U-100 Discont inued 0 UNIT SC 3 TIMES DAILY WITH MEALS March 02, 2020 4:32pm June 19, 2020 5:31pm Start: 06-03-2019 End: 03-02-2020 Insulin Aspart U-100 (Novolo g Flexpen U-100 Insulin) 100 unit/mL (3 mL) insulin pen Discontinued 10 U SC THREE TIMES A DAY 15 3 September 09, 2019 5:03pm March 02, 2020 4:32pm Start: 11-05-2018 End: 06-03-2019 Insulin Aspart U-100 100 uni t/mL insulin pen Discontinued 0 .Route .COMPLEX 1 0 November 05, 2018 9:35am June 03, 2019 12:44pm Type 1 diabetes mellitus without complications dm Sliding scale ac & hs 4 times a day Start: 11-06-2017 End: 11-05-2018 Insulin Aspart U-100 (Novolo g Flexpen U-100 Insulin) 100 unit/mL insulin pen Discontinued 0 .ROUTE .COMPLEX November 06, 2017 9:02am November 05, 2018 9:35am Type 1 diabetes mellitus without complications dm Sliding scale ac & hs 4 times a day Start: 07-02-2017 End: 11-06-2017 Insulin Aspart U-100 (Novolo g Flexpen U-100 Insulin) 100 unit/mL insulin pen Discontinued 0 SC THREE TIMES A DAY July 02, 2017 1:00am November 06, 2017 9:04am Type 1 diabetes mellitus without complications take 12 U with each meal + correction, up to 50 U qd SC TID Start: 12-18-2016 End: 07-02-2017 Insulin Aspart U-100 Discont inued 5 - 10 UNITS SC BEFORE MEALS AND AT BEDTIME December 18, 2016 3:13pm July 02, 2017 11:20am Start: 08-01-2016 End: 10-29-2024 NOVOLOG FLEXPEN 100 UNIT/ML SOPN Take 12 units each meal plus correction, up to 50 units daily INSULIN ASPART [id number] Daily Blanco NP Start: 08-01-2016 End: 10-29-2024 NOVOLOG FLEXPEN 100 UNIT/ML SOPN Take 12 units each meal plus correction, up to 50 units daily INSULIN ASPART [id number] Daily Blanco NP Start: 08-24-2015 insulin aspart (NOVOLOG FLEXPEN) 100 unit/mL inpn Take 8-10 units each meal 5 Pen 11 08/24/2015 Active Start: 02-07-2014 End: 07-02-2017 Insulin Aspart U-100 100 UNI TS/ML insulin pen Discontinued 5 - 10 U SC BEFORE MEALS AND AT BEDTIME December 18, 2016 3:13pm July 02, 2017 11:20am BLOOD SUGAR NOVOLOG 100 UNIT /ML SOLN use accordingly to sliding scale INSULIN ASPART [id number] Daily Blanco NP NOVOLOG 100 UNIT /ML SOLN use accordingly to sliding scale INSULIN ASPART [id number] Daily Blanco NP NOVOLOG 100 UNIT /ML SOLN use accordingly to sliding scale INSULIN ASPART [id number] Daily Blanco NP Comment on above: Take 8-10 units each meal metoclopramide 10 mg oral tablet (20 sources) Dopamine-2 Receptor Antagonist Start: 10-29-19 End: 03-02-20 take 1 tablet by mouth every six hours Metoclopramide Hcl 5 MG tablet Discontinued 5 mg PO EVERY 6 HOURS 30 October 29, 2019 12:00am March 02, 2020 4:34pm Start: 10-10-2016 End: 08-11-2020 take 1 tablet by mouth every six hours as needed for nausea Metoclopramide Hcl 10 MG tablet Discontinued 10 mg PO EVERY 6 HOURS as needed for Headache or nausea July 26, 2020 1:00am August 11, 2020 9:42am Comment on above: Take 1 tablet by camila th before meals and at bedtime. 30min before meals. nortriptyline 25 mg oral capsule (20 sources) Tricyclic Antidepressant Start: End: take 1 capsule by mouth at bedtime Nortriptyline 25 mg capsule Discontinued 25 mg PO AT BEDTIME 30 2 October 10, 2021 12:40pm July 08, 2023 11:42am DEPRESSION ondansetron 4 mg disintegrating oral tablet (20 sources) Serotonin-3 Receptor Antagonist Start: End: take 1 tablet by mouth every eight hours as needed for nausea Ondansetron 4 MG tablet Discontinued 4 mg PO EVERY 8 HOURS NEEDED as needed for Nausea May 06, 2019 1:00am June 03, 2019 11:58am Start: 11-04-2017 End: 11-06-2017 take 1 tablet by mouth every eight hours as needed for nausea Ondansetron 4 MG tablet Discontinued 4 mg PO EVERY 8 HOURS NEEDED as needed for Nausea November 04, 2017 12:00am November 06, 2017 9:04am potassium chloride 20 meq extended release oral tablet (9 sources) Start: 08-14-2023 End: 01-09-2024 take 1 tablet by mouth once daily Potassium Chloride 20 mEq tablet extended release Discontinued 20 meq PO DAILY August 14, 2023 1:00am January 09, 2024 11:03am promethazine hydrochloride 25 mg rectal suppository (20 sources) Phenothiazine Start: 05-06-2019 End: 09-09-2019 take 25 mg rectal route every six hours as needed for nausea Promethazine 25 MG suppository Discontinued 25 mg RECTAL EVERY 6 HOURS NEEDED as needed for Nausea 6 0 May 06, 2019 1:00am September 09, 2019 5:31pm Start: 05-04-2018 End: 09-17-2018 take 1 tablet by mouth every six hours as needed for nausea and vomiting Promethazine 12.5 mg tablet Discontinued 12.5 mg PO EVERY 6 HOURS as needed for nausea and vomiting 30 0 May 04, 2018 1:00am September 17, 2018 1:50pm traZODone hydrochloride 50 mg oral tablet (14 sources) Serotonin Reuptake Inhibitor Start: 05-04-2018 End: 05-19-2018 take 1 tablet by mouth at bedtime Trazodone 50 mg tablet Discontinued 50 mg PO AT BEDTIME 60 0 May 04, 2018 1:00am May 19, 2018 11:21am Vitamin B 12 (5 sources) Vitamin B12 B-12 CAPS qd CYANOCOBALAMIN CAPS [id number] Daily Blanco [employer] Vitamin B Complex (B Complex-Vitamin B12) tablet (14 sources) Start: 07-02-2017 End: 11-21-2017 Vitamin B Complex (B Complex-Vitamin B12) tablet Discontinued 1 {tbl} PO daily July 02, 2017 1:00am November 21, 2017 10:03am Start: 07-02-2017 End: 11-21-2017 take 1 tablet by mouth once daily Vitamin B Complex (B Complex-Vitamin B12) tablet Discontinued 1 TABLET PO daily July 02, 2017 1:00am November 21, 2017 10:03am Start: 07-02-2017 End: 11-21-2017 take 1 tablet by mouth once daily Vitamin B Complex (B Complex-Vitamin B12) tablet Discontinued 1 TABLET PO daily July 02, 2017 12:00am November 21, 2017 9:03am vortioxetine 5 mg oral tablet (20 sources) Start: 04-15-2024 End: 05-13-2024 take 1 tablet by mouth once daily, then take 2 tablets by mouth once daily Vortioxetine (Trintellix) 5 mg tablet Discontinued 5 mg PO DAILY 60 April 15, 2024 3:30pm May 13, 2024 3:55pm Take 5 mg daily x 2 weeks then increase to 10 mg daily Start: 08-14-2023 End: 01-09-2024 take 1 tablet by mouth once daily Vortioxetine (Trintellix) 10 mg tablet Discontinued 10 mg PO DAILY August 14, 2023 1:00am January 09, 2024 11:03am Start: 09-08-2020 End: 07-08-2023 take 1 tablet by mouth once daily Vortioxetine 10 mg tablet Discontinued 10 mg PO DAILY 90 2 April 26, 2022 2:20pm July 08, 2023 11:42am DEPRESSION Start: 08-11-2020 End: 09-08-2020 take 1 tablet by mouth once daily, then take 2 tablets by mouth once daily Vortioxetine (Trintellix) 5 mg tablet Discontinued 5 mg PO DAILY 60 August 11, 2020 10:44am September 08, 2020 11:35am Take 5 mg daily x 2 weeks then increase to 10 mg daily Problems Active Problems Problem Classification Problem Date Documented Da te Episodic/Chronic Acute and unspecified renal failure (17 sources) Injury of kidney; Translations: [Acute kidney failure, unspecified] 10-26-2019 Episodic Adjustment disorders (2 sources) Adjustment disorder with depressed mood; Translations: [Adjustment disorder with depressed mood] Onset: 6 01-28-2006 Chronic Anxiety disorders (20 sources) Mixed anxiety and depressive disorder; Translations: [Anxiety disorder, unspecified] Onset: 6 11-05-2018 Chronic Attention-deficit, conduct, and disruptive behavior disorders (2 sources) Attention deficit hyperactivity disorder; Translations: [Attention-deficit hyperactivity disorder, unspecified type] 08-25-2015 Chronic Attention-deficit, conduct, and disruptive behavior disorders (2 sources) Attention-deficit hyperactivity disorder, unspecified type; Translations: [Attention deficit disorder with hyperactivity] Onset: 6 01-04-2016 Chronic Blindness and vision defects (14 sources) Disorder of vision; Translations: [Unspecified visual loss] 11-05-2018 Chronic Diabetes mellitus with complications (20 sources) Hyperglycemia due to type 1 diabetes mellitus; Translations: [Type 1 diabetes mellitus with hyperglycemia] Onset: 5 01-25-2021 Chronic Diabetes mellitus without complication (20 sources) Type 1 diabetes mellitus; Translations: [Diabetes mellitus] Onset: 6 08-01-2016 Chronic Esophageal disorders (20 sources) Gastroesophageal reflux disease; Translations: [Gastro-esophageal reflux disease without esophagitis] Onset: 6 10-26-2019 Chronic Fluid and electrolyte disorders (20 sources) Hypokalemia; Translations: [Hypokalemia] 10-26-2019 Episodic Gastritis and duodenitis (20 sources) Acute hemorrhagic gastritis; Translations: [Gastritis, unspecified, with bleeding] Onset: 7 07-27-2020 Episodic Gastroduodenal ulcer (except hemorrhage) (14 sources) Peptic ulcer; Translations: [Peptic ulcer, site unspecified, unspecified as acute or chronic, without hemorrhage or perforation] 11-05-2018 Chronic Headache, including migraine (20 sources) Migraine; Translations: [Migraine, unspecified, not intractable, without status migrainosus] Onset: 6 08-01-2016 Chronic Headache; including migraine (14 sources) Headache; Translations: [Headache] 07-12-2021 Episodic Mood disorders (20 sources) Major depression with psychotic features; Translations: [Major depressive disorder, single episode, severe with psychotic features] Onset: 6 04-26-2022 Chronic Nausea and vomiting (14 sources) Diarrhea and vomiting; Translations: [Vomiting, unspecified] 08-01-2015 Episodic Nutritional deficiencies (15 sources) Vitamin D deficiency; Translations: [Vitamin D deficiency, unspecified] Onset: 7 10-15-2016 Chronic Osteoarthritis (15 sources) Arthritis; Translations: [Unspecified osteoarthritis, unspecified site] 11-05-2018 Chronic Other circulatory disease (13 sources) Elevated blood-pressure reading without diagnosis of hypertension; Translations: [Elevated blood-pressure reading, without diagnosis of hypertension] 07-29-2022 Episodic Other circulatory disease (1 source) Elevated blood-pressure reading, without diagnosis of hypertension; Translations: [Elevated blood pressure reading without diagnosis of hypertension] 07-29-2022 Episodic Other connective tissue disease (14 sources) Pain in upper limb; Translations: [Pain in arm, unspecified] 03-05-2021 Episodic Other connective tissue disease (14 sources) Cramp; Translations: [Cramp and spasm] 08-11-2020 Episodic Other connective tissue disease (1 source) Muscle spasm of cervical muscle of neck; Translations: [Other muscle spasm] 12-17-2023 Episodic Other connective tissue disease (11 sources) Muscle pain; Translations: [Myalgia, unspecified site] 04-15-2024 Episodic Other connective tissue disease (8 sources) Myositis; Translations: [Myositis, unspecified] 04-15-2024 Episodic Other connective tissue disease (11 sources) Muscle weakness of limb; Translations: [Other symptoms and signs involving the musculoskeletal system] 07-19-2024 Episodic Other gastrointestinal disorders (1 source) Irritable bowel syndrome without diarrhea; Translations: [Irritable bowel syndrome, unspecified] Onset: Chronic Other gastrointestinal disorders (15 sources) Loose stool; Translations: [Other fecal abnormalities] 08-03-2024 Episodic Other injuries and conditions due to external causes (14 sources) Systemic inflammatory response syndrome; Translations: [Systemic inflammatory response syndrome (SIRS) of non-infectious origin without acute organ dysfunction] 10-26-2019 Episodic Other male genital disorders (14 sources) Male erectile dysfunction, unspecified; Translations: [Erectile dysfunction] 03-12-2019 Chronic Other non-traumatic joint disorders (14 sources) Hand joint pain; Translations: [Pain in joints of unspecified hand] 01-25-2021 Episodic Other nutritional; endocrine; and metabolic disorders (14 sources) Other symptoms and signs concerning food and fluid intake; Translations: [Symptoms of dehydration] 08-01-2015 Episodic Other upper respiratory infections (12 sources) Acute upper respiratory infection; Translations: [Acute upper respiratory infection, unspecified] 05-23-2023 Episodic Pancreatic disorders (not diabetes) (11 sources) Exocrine pancreatic insufficiency; Translations: [Exocrine pancreatic insufficiency] 11-10-2024 Episodic Residual codes; unclassified (14 sources) Hypersomnia; Translations: [Hypersomnia, unspecified] 11-05-2018 Chronic Residual codes; unclassified (1 source) Altered mental status, unspecified; Translations: [Altered mental status, unspecified] Onset: 5 Episodic Skin and subcutaneous tissue infections (1 source) Scalp infection; Translations: [Local infection of the skin and subcutaneous tissue, unspecified] 12-17-2023 Episodic Substance-related disorders (2 sources) Cannabis abuse; Translations: [Cannabis abuse, uncomplicated] Onset: 6 03-28-2016 Chronic Superficial injury; contusion (4 sources) Contusion of toe; Translations: [Contusion of unspecified lesser toe(s) without damage to nail, initial encounter] 03-09-2025 Episodic Unclassified (8 sources) Musculoskeletal back pain; Translations: [M54.9 - Dorsalgia, unspecified] Unclassified (3 sources) K52.9 - Noninfective gastroenteritis and colitis, unspecified Unclassified (3 sources) R29.898 - Other symptoms and signs involving the musculoskeletal system,M79.10 - Myalgia, unspecified site Unclassified (1 source) Low back pain, unspecified; Translations: [Low back pain, unspecified] Onset: 5 Viral infection (14 sources) Varicella-zoster virus infection; Translations: [Zoster without complications] 03-03-2020 Episodic Past or Other Problems Problem Classification Problem Date Documented Da te Episodic/Chronic Noninfectious gastroenteritis (20 sources) Gastroenteritis; Translations: [Noninfective gastroenteritis and colitis, unspecified] Onset: 11-01-2024 06-27-2022 Episodic Other connective tissue disease (2 sources) Triggering of digit; Translations: [Trigger finger, right ring finger] Onset: 09-28-2015 09-28-2015 Episodic Other gastrointestinal disorders (1 source) Other fecal abnormalities; Translations: [Other fecal abnormalities] Onset: 08-03-2024 Episodic Spondylosis; intervertebral disc disorders; other back problems (20 sources) Lumbar radiculopathy; Translations: [Radiculopathy, lumbar region] Onset: 09-09-2024 10-27-2024 Episodic Syncope (9 sources) Near syncope; Translations: [Syncope and collapse] Onset: 11-09-2024 11-04-2024 Episodic Unclassified (14 sources) trigger finger surgery 01-19-2022 Results Test Name Value Interpretation Reference Range Facility Internal Medicine Office Vis donald 04-22-2025 Internal Medicine Office Visit [facility] Internal Medicine [address] [place] [address] [place] [address] OFFICE VISIT Date of Service: 04/22/25 MR#: [id number] Acct: [id number] Name: HANS GONZALEZ Rep #: [id number] : 1990 Provider: SHAYE molina Age/Sex: 34/M Location: [facility] Status: Signed Intake Vital Signs 04/06/25 09:48 04/22/25 07:57 Height 5 ft 5 in 5 ft 7 in Weight: 143 lb 141 lb 8 oz BMI 23.8 22.1 BP 128/84 H 126/78 H Blood Pressure Location Lt brachial Lt brachial Position Sitting Sitting Respiration 16 Pulse 76 83 Pulse Source Monitor Monitor Temp 97.6 F L Temp Source Temporal Pulse Oximetry (%) 98 100 Oxygen Delivery Method room air room air Intake Visit Reasons: ACUTE-MEMORY ISSUES Chief Complaint: memory issues Curtain Worker Required: No Accompanied by: Self Is patient in pain?: No Allergies No Known Allergies Allergy (Verified 04/22/25 07:53) Medications ???Medication ???Instructions ???Recorded ???Confirmed ???Type acetaminophen 650 mg 1,300 mg PO ONCE 08/14/23 04/22/25 History tablet,extended release (Tylenol Arthritis Pain) tadalafil 5 mg tablet 5 mg PO DAILY PRN sexual activity 01/09/24 04/22/25 Rx #30 tabs insulin degludec 100 unit/mL (3 18 unit (0.18 mL) subcut QHS #15 m L 01/22/24 04/22/25 Rx mL) subcutaneous pen (Tresiba FlexTouch U-100 insulin) baclofen 10 mg tablet 10 mg PO BID PRN muscle spasm #30 04/15/24 04/22/25 Rx tabs omeprazole 40 mg capsule,delayed 40 mg PO DAILY #90 caps 07/19/24 1 Rx release blood-glucose sensor (FreeStyle #2 ea 10/19/24 04/22/25 Rx Celena 3 Plus Sensor device) loperamide 2 mg tablet (Imodium 2 mg PO Q6H PRN loose stool 04/22/25 History A-D) Novolog FlexPen U-100 Insulin 100 20 unit (0.2 mL) subcut TIDCM 12/1504/22/25 Rx unit/mL (3 mL) subcutaneous DIABETES #15 mL (insulin aspart U-100) pen needle, diabetic 32 gauge x #100 ea 01/26/25 04/22/25 Rx 5/16 (Comfort EZ Pen Ilion) cetirizine 10 mg capsule (Zyrtec) 10 mg PO QDAY PRN 04/06/25 History cholecalciferol (vitamin D3) 50 50 mcg PO QDAY #90 caps 04/06/25 1 Rx mcg (2,000 unit) capsule diphenhydramine HCl 25 mg capsule 25 mg PO QHS PRN 04/06/25 5 History (Benadryl) qmdlla-pzbivnmo-vscxmwv 3 cap PO TIDWMEAL 04/06/25 5 History 40,000-126,000-168,000 unit capsule, delay rel (Zenpep) triamcinolone acetonide 0.1 % applic topical 04/06/25 04/22/25 H istory topical cream sertraline 50 mg tablet 50 mg PO QDAY #90 tabs 04/22/25 Rx Nurse's Note: memory issues fog and spacing out and confusion [facility] Medical History Toe contusion URI (upper respiratory infection) Lower extremity weakness Chronic diarrhea Myalgia Myositis Musculoskeletal back pain Elevated blood pressure reading without diagnosis of hypertension Gastroenteritis Type 1 diabetes mellitus Major depression with psychotic features Headache Pain and numbness of upper extremity Vision problems Arthritis Headache, migraine Anxiety and depression Surgical History trigger finger surgery Family History Grandfather Myocardial infarction COPD (chronic obstructive pulmonary disease) Brother Depression suicide attempt Uncle Diabetes Father Diabetes Aunt Diabetes Social History Smoking Status: Current every day smoker tobacco type: cigarettes Tobacco: How many years used: 13 second hand exposure: No quit status: not considering quitting alcohol intake: never substance use type: marijuana what type of physical activity do you participate in: walking, running and weight training frequency: 3-4 times per week HPI HPI Chief Complaint: memory issues Details: HANS GONZALEZ, is a 34 M who presents to the office today for concerns of memory issues. Patient states he has had a couple episodes where he is increasingly confused. He states he has had 2 episodes where he seems to almost wake up while he is still awake and forgets where he is or why he is there. He states his sleep at night has been good. Upon further questioning he does state that he did stop taking his olanzapine last fall as it he was feeling better. He had also stopped taking his Zoloft. Over the last several months he has moved in with his significant other and has been parenting 3 children states that he was having a little more difficulty with depression and restarted his Zoloft at the 50 mg dose about 2 to 3 weeks ago. His confusions episodes happened in the last week or so. (more content not included)... Normal [facility] Calculated very low density lipoprotein (VLDL) cholesterol measurementOrdered By: Sarahi Maier on 04-06-2025 Calculated very low density lipoprotein (VLDL) cholesterol measurement 58 mg/dL High 5-40 [facility] Endocrinology Visit Reporton 04-06-2025 Endocrinology Visit Report [facility] [address] [place] [address] OFFICE VISIT Date of Service: 04/06/25 MR#: [id number] Acct: [id number] Name: HANS GONZALEZ Jr. Rep #: [id number] : 1990 Provider: SHAYE ames Age/Sex: 34/M Location: [facility] Status: Signed Intake Vital Signs 07/29/24 09:44 11/04/24 14:02 03/09/25 10:26 04/06/25 09:48 Height 5 ft 7 in 5 ft 7 in 5 ft 7 in 5 ft 5 in Weight: 143 lb BMI 23.8 BP 128/84 H Blood Pressure Location Lt brachial Position Sitting Pulse 76 Pulse Source Monitor Pulse Oximetry (%) 98 Oxygen Delivery Method room air Intake Visit Reasons: 6 M , 01/26 Chief Complaint: f/u diabetes Curtain Worker Required: No Accompanied by: Self Is patient in pain?: No Allergies No Known Allergies Allergy (Verified 04/06/25 09:44) Medications ???Medication ???Instructions ???Recorded ???Confirmed ???Type acetaminophen 650 mg 1,300 mg PO ONCE 08/14/23 04/06/25 History tablet,extended release (Tylenol Arthritis Pain) tadalafil 5 mg tablet 5 mg PO DAILY PRN sexual activity 01/09/24 04/06/25 Rx #30 tabs insulin degludec 100 unit/mL (3 18 unit (0.18 mL) subcut QHS #15 m L 01/22/24 04/06/25 Rx mL) subcutaneous pen (Tresiba FlexTouch U-100 insulin) baclofen 10 mg tablet 10 mg PO BID PRN muscle spasm #30 04/15/24 04/06/25 Rx tabs olanzapine 5 mg tablet (Zyprexa) 5 mg PO QHS #30 tabs 04/19/2403/23 Rx sertraline 50 mg tablet 50 mg PO QDAY #60 tabs 05/13/24 Rx omeprazole 40 mg capsule,delayed 40 mg PO DAILY #90 caps 07/19/24 1 Rx release blood-glucose sensor (FreeStyle #2 ea 10/19/24 04/06/25 Rx Celena 3 Plus Sensor device) loperamide 2 mg tablet (Imodium 2 mg PO Q6H PRN loose stool 04/06/25 History A-D) Novolog FlexPen U-100 Insulin 100 20 unit (0.2 mL) subcut TIDCM 12/1504/06/25 Rx unit/mL (3 mL) subcutaneous DIABETES #15 mL (insulin aspart U-100) pen needle, diabetic 32 gauge x #100 ea 01/26/25 04/06/25 Rx 5/16 (Comfort EZ Pen Ilion) cetirizine 10 mg capsule (Zyrtec) 10 mg PO QDAY PRN 04/06/25 History cholecalciferol (vitamin D3) 50 50 mcg PO QDAY #90 caps 04/06/25 1 Rx mcg (2,000 unit) capsule diphenhydramine HCl 25 mg capsule 25 mg PO QHS PRN 04/06/25 5 History (Benadryl) mjrzmm-iangpvyr-aqdedrw 3 cap PO TIDWMEAL 04/06/25 Histor y 40,000-126,000-168,000 unit capsule, delay rel (Zenpep) triamcinolone acetonide 0.1 % applic topical 04/06/25 04/06/25 H istory topical cream PFSH Medical History (Updated 04/06/25 @ 10:19 by Sarahi Maier, DEPUTY GENERAL COUNSEL-C) Toe contusion URI (upper respiratory infection) Lower extremity weakness Chronic diarrhea Myalgia Myositis Musculoskeletal back pain Elevated blood pressure reading without diagnosis of hypertension Gastroenteritis Type 1 diabetes mellitus Major depression with psychotic features Headache Pain and numbness of upper extremity Vision problems Arthritis Headache, migraine Anxiety and depression Surgical History trigger finger surgery Family History Grandfather Myocardial infarction COPD (chronic obstructive pulmonary disease) Brother Depression suicide attempt Uncle Diabetes Father Diabetes Aunt Diabetes Social History Smoking Status: Current every day smoker tobacco type: cigarettes Tobacco: How many years used: 13 second hand exposure: No quit status: not considering quitting alcohol intake: never substance use type: marijuana what type of physical activity do you participate in: walking, running and weight training frequency: 3-4 times per week HPI HPI Chief Complaint: f/u diabetes Details: HANS GONZALEZ, is a 34 M who presents to the office today for evaluation and management of diabetes. A1C today is 7.7%, improved from 07/29/24 at 8.2%. He has gained 2 lbs since that time. Currently taking Tresiba 18 u once daily and Novolog 4-8 u TIDCM +1:50. Celena tracings reviewed- he is correcting significantly elevated blood sugars often times resulting in a low blood sugar. He denies any significant episode of hypoglycemia that has required assistance from others. He drinks regular Mountain Dew routinely. BP stable. Hx of vitamin D deficiency. He was taking high dose vitamin D for several months, he is not taking routine supplement. He is due for routine labs. Reports trouble with memory. He states that he forgets information and gets disoriented. He reports near syncopal episodes. Denies any hypoglycemia with episodes. He has no (more content not included)... Normal [facility] LDL calc ser/plasOrdered By: Sarahi Maier on 04-06-2025 Cholesterol in LDL [Mass/Vol] 64 mg/dL [facility] Comment on above: Ofkexajwkf=745-016 m g/dL & Higher Nudt=962 mg/dL or greaterFriedwald Equation for LDL-C Laboratory - Hematology and Cell countsOrdered By: Sarahi Maier on 04-06-2025 HbA1c (Bld) [Mass fraction] 7.7 % High 4.2-6.3 [facility] Lipid Profileon 04-06-2025 CHOL:HDL 4.47 Normal [facility] Comment on above: Performed By: #### L 400.0001 #### [facility] Laboratory [address] [place], [address] Cholesterol [Mass/Vol] 157 mg/dL Normal <=200 [facility] Comment on above: Result Comment: Chol esterol level, Desirable <200 mg/dL Borderline high cholesterol 200-239 mg/dL High cholesterol >=240 mg/dL Recommendations of the NCEP Adult Treatment Panel for the following risk-cutoff thresholds for the [place] population. Performed By: #### L 400.0001 #### [facility] [address] [place], [address] Cholesterol in HDL [Mass/Vol] 35 mg/dL Low [facility] Comment on above: Result Comment: Debra onal Cholesterol Education Program (NCEP) guidelines: <40 mg/dL: Low HDL-cholesterol (major risk factor for CHD) >= 60 mg/dL: High HDL-cholesterol (negative risk factor for CHD) HDL-cholesterol is affected by a number of factors, e.g. smoking, exercise, hormones, sex and age. Performed By: #### L 400.0001 #### [facility] [address] [place], [address] Cholesterol in LDL [Mass/Vol] 64 mg/dL Normal [facility] Comment on above: Result Comment: Bord kqamuh=534-649 mg/dL Higher Qjma=268 mg/dL or greater Friedwald Equation for LDL-C Performed By: #### L 400.0001 #### [facility] [address] [place], [address] Cholesterol in VLDL [Mass/Vol] 58 mg/dL High 5-40 [facility] Comment on above: Performed By: #### L 400.0001 #### [facility] [address] [place], [address] Triglyceride [Mass/Vol] 290 mg/dL High [facility] Comment on above: Result Comment: The drugs N-Acetylcysteine and Metamizole may falsely depress this assay. Normal range: <150 mg/dL Borderline High: 150-199 mg/dL High: 200-499 mg/dL Very High: >500 mg/dL Performed By: #### L 400.0001 #### [facility] [address] [place], [address] Microalb:Creat Ratio,Random URon 04-06-2025 Creatinine [Mass/Vol] 56.60 mg/dL Normal 39.00- 259. 00 [facility] Comment on above: Performed By: #### L 400.0001 #### [facility] [address] [place], [address] MALB:CREAT UNABLE TO CALCULATE Normal <30 mg/g CRE [facility] Comment on above: Performed By: #### L 400.0001 #### [facility] [address] [place], [address] MICROALBUMIN,UR < 12.0 Normal <20 mg/L [facility] Comment on above: Performed By: #### L 400.0001 #### [facility] [address] [place], [address] Microalbumin/creat ratio urO rdered By: Sarahi Maier on 04-06-2025 Urine microalbumin/creatinine ratio measurement UNABLE TO CALCULATE mg/g CRE <30 [facility] Random urine creatinine allyn urement (mass/volume)Ordered By: Sarahi Maier on 04-06-2025 Creatinine Unsp time (U) [Mass/Vol] 56.60 mg/dL 39.00-259. 00 [facility] Screening total cholesterol/ high density lipoprotein (HDL) cholesterol ratioOrdered By: Sarahi Maier on 04-06-2025 Cholesterol.total/Zo sterol in HDL [Mass ratio] 4.47 {ratio} [facility] Serum or plasma cholesterol in HDL measurement (mass/volume)Ordered By: Sarahi Maier on 04-06-2025 Cholesterol in HDL [Mass/Vol] 35 mg/dL Low >40 [facility] Comment on above: National Cholesterol Education Program (NCEP) guidelines:<40 mg/dL: Low HDL-cholesterol (major risk factor for CHD)>= 60 mg/dL: High HDL-cholesterol (negative risk factor for CHD)HDL-cholesterol is affected by a number of factors, e.g. smoking, exercise, hormones, sex and age. Serum or plasma cholesterol measurement (mass/volume)Ordered By: Sarahi Maier on 04-06-2025 Cholesterol [Mass/Vol] 157 mg/dL <201 [facility] Comment on above: Cholesterol level, D esirable <200 mg/dLBorderline high cholesterol 200-239 mg/dLHigh cholesterol >=240 mg/dLRecommendations of the NCEP Adult Treatment Panel for the following risk-cutoff thresholds for the [place] population. TSH DL <= 0.005 mIU/L QnOrde red By: Sarahi Maier on 04-06-2025 TSH Qn 1.620 uIU/mL 0.300-4.20 0 [facility] Thyroid Stim Hormone (TSH)on 04-06-2025 TSH 1.620 uIU/mL Normal 0.300-4.20 0 [facility] Comment on above: Performed By: #### L 400.0001 #### [facility] [address] [place], [address] Triglycerides measurementOrd ered By: Sarahi Maier on 04-06-2025 Triglyceride [Mass/Vol] 290 mg/dL High <199 [facility] Comment on above: The drugs N-Acetylcy steine and Metamizole may falsely depress this assay. Normal range: <150 mg/dLBorderline High: 150-199 mg/dLHigh: 200-499 mg/dLVery High: >500 mg/dL Urine albumin measurement wi detection limit of 20 mg/L or less (mass/volume)Ordered By: Sarahi Maier on 04-06-2025 Albumin DL <= 20 mg/L (U) [Mass/Vol] < 12.0 mg/L <20 mg/L [facility] Vitamin D,25 Hydroxyon 04-06 Vitamin D 25-OH 10.6 ng/mL Low 30-100 [facility] Comment on above: Result Comment: Cary min D Status Deficiency: <20 ng/mL (50nmol/L) Insufficiency: 20-30 ng/mL (50-75 nmol/L) Sufficiency: 30-100 ng/mL (75-250 nmol/L) Toxicity: >100 ng/mL (>250 nmol/L) Performed By: #### L 400.0001 #### [facility] [address] [place], [address] Absolute lymphocyte countOrd ered By: Alfred Katz on 03-09-2025 Lymphocytes Auto (Unsp spec) [#/Vol] 1.23 10*3/uL 0.83-4.51 [facility] Absolute neutrophil countOrd ered By: Davionlandryjose rafaelquinn Matthewstressayaa on 03-09-2025 Neutrophils (Bld) [#/Vol] 2.8 10*3/uL 2.0-7.7 [facility] Anion gap in Serum or Plasma Ordered By: Alfred Katz on 03-09-2025 Anion gap [Moles/Vol] 11 mmol/L 5- [facility] Automated lymphocyte count a s percentage of total leukocytesOrdered By: Alfred Katz on 03-09-2025 Lymphocytes/100 WBC Auto (Unsp spec) 25.3 % - [facility] BUN/creatinine ratioOrdered By: landryduncansvillequinn Katz on 03-09-2025 Urea nitrogen/Creatinine [Mass ratio] 16.9 mg/mg 10- [facility] Basophil percentageOrdered B y: Alfred Katz on 03-09-2025 Basophils/100 WBC (Bld) 1.2 % High 0-1 [facility] Bilirubin, totalOrdered By: Alfred Katz on 03-09-2025 Bilirubin [Mass/Vol] 1.52 mg/dL High 0.00-1.30 [facility] CBC W/Diff, Automatedon 02-21 Absolute Lymph 1.23 X10 3/uL Normal 0.83-4.51 [facility] Comment on above: Performed By: #### L 100.0100, L500.4050 #### [facility] [address] [place], [address] Absolute Neut 2.8 X10 3/uL Normal 2.0-7.7 [facility] Comment on above: Performed By: #### L 100.0100, L500.4050 #### [facility] [address] [place], [address] Basophils/100 WBC (Bld) 1.2 % High 0-1 [facility] Comment on above: Performed By: #### L 100.0100, L500.4050 #### [facility] [address] [place], [address] Eosinophils/100 WBC (Bld) 5.1 % High 0-5 [facility] Comment on above: Performed By: #### L 100.0100, L500.4050 #### [facility] [address] [place], [address] Erythrocyte distribution width (RBC) [Ratio] 11.9 % Normal 11.6-14.6 [facility] Comment on above: Performed By: #### L 100.0100, L500.4050 #### [facility] [address] [place], [address] Hematocrit (Bld) [Volume fraction] 41.6 % Normal 40-54 [facility] Comment on above: Performed By: #### L 100.0100, L500.4050 #### [facility] [address] [place], [address] Hemoglobin (Bld) [Mass/Vol] 14.5 g/dL Normal 13.0-16.5 [facility] Comment on above: Performed By: #### L 100.0100, L500.4050 #### [facility] [address] [place], [address] IG% 0.200 Normal 0.0-0.9 [facility] Comment on above: Result Comment: IG% - Immature Granulocytes (promyelocytes, myelocytes and metamyelocytes) > 1% indicates that a LEFT SHIFT is Present. Performed By: #### L 100.0100, L500.4050 #### [facility] [address] [place], [address] Lymphocytes/100 WBC (Bld) 25.3 % Normal 19-41 [facility] Comment on above: Performed By: #### L 100.0100, L500.4050 #### [facility] [address] [place], [address] MCH (RBC) [Entitic mass] 30.6 pg Normal 27.0-32.0 [facility] Comment on above: Performed By: #### L 100.0100, L500.4050 #### [facility] [address] [place], [address] MCHC (RBC) [Mass/Vol] 34.9 g/dL Normal 32-36 [facility] Comment on above: Performed By: #### L 100.0100, L500.4050 #### [facility] [address] [place], [address] MCV (RBC) [Entitic vol] 87.8 fL Normal 80-94 [facility] Comment on above: Performed By: #### L 100.0100, L500.4050 #### [facility] [address] [place], [address] Monocytes/100 WBC (Bld) 10.5 % High 0-10 [facility] Comment on above: Performed By: #### L 100.0100, L500.4050 #### [facility] [address] [place], [address] Neutrophils/100 WBC (Bld) 57.7 % Normal 47-70 [facility] Comment on above: Performed By: #### L 100.0100, L500.4050 #### [facility] [address] [place], [address] Nucleated RBC (Bld) [#/Vol] 0 10*3/uL Normal 0-5 [facility] Comment on above: Performed By: #### L 100.0100, L500.4050 #### [facility] [address] [place], [address] Platelet mean volume (Bld) [Entitic vol] 10.0 fL Normal 6.2-12.0 [facility] Comment on above: Performed By: #### L 100.0100, L500.4050 #### [facility] [address] [place], [address] Platelets (Bld) [#/Vol] 332 10*3/uL Normal 150-450 [facility] Comment on above: Performed By: #### L 100.0100, L500.4050 #### [facility] [address] [place], [address] RBC (Bld) [#/Vol] 4.74 10*6/uL Normal 4.6-6.2 [facility] Comment on above: Performed By: #### L 100.0100, L500.4050 #### [facility] [address] [place], [address] RDW SD 38.0 fl Normal 35.1-43.9 [facility] Comment on above: Performed By: #### L 100.0100, L500.4050 #### [facility] [address] [place], [address] WBC (Bld) [#/Vol] 4.9 10*3/uL Normal 4.4-11.0 [facility] Comment on above: Performed By: #### L 100.0100, L500.4050 #### [facility] [address] [place], [address] Carbon dioxide, total [Moles /volume] in Central venous bloodOrdered By: Alfred Katz on 03-09-2025 CO2 [Moles/Vol] 25.6 mmol/L 21.0-32.0 [facility] Chloride assayOrdered By: Davion Katz on 03-09-2025 Chloride [Moles/Vol] 101 mmol/L 98-108 [facility] Comprehensive Metabolic Prof ilon 03-09-2025 Albumin [Mass/Vol] 4.4 g/dL Normal 3.5-5.0 [facility] Comment on above: Performed By: #### L 100.0100, L500.4050 #### [facility] [address] [place], [address] Albumin/Globulin [Mass ratio] 1.5 {ratio} Normal 0.9-2.4 [facility] Comment on above: Performed By: #### L 100.0100, L500.4050 #### [facility] [address] [place], [address] ALK PHOS 126 U/L Normal 40-129 [facility] Comment on above: Performed By: #### L 100.0100, L500.4050 #### [facility] [address] [place], [address] ALT [Catalytic activity/Vol] 7 U/L Normal <=46 [facility] Comment on above: Performed By: #### L 100.0100, L500.4050 #### [facility] [address] [place], [address] AST [Catalytic activity/Vol] 16 U/L Normal <=37 [facility] Comment on above: Performed By: #### L 100.0100, L500.4050 #### [facility] [address] [place], [address] Bilirubin [Mass/Vol] 1.52 mg/dL High 0.00-1.30 [facility] Comment on above: Performed By: #### L 100.0100, L500.4050 #### [facility] [address] [place], [address] BUN/CRE 16.9 RATIO Normal 10-20 [facility] Comment on above: Performed By: #### L 100.0100, L500.4050 #### [facility] [address] [place], [address] Calcium [Mass/Vol] 9.5 mg/dL Normal 7.6-11.0 [facility] Comment on above: Performed By: #### L 100.0100, L500.4050 #### [facility] [address] [place], [address] Chloride [Moles/Vol] 101 mmol/L Normal 98-108 [facility] Comment on above: Performed By: #### L 100.0100, L500.4050 #### [facility] [address] [place], [address] CO2 [Moles/Vol] 25.6 mmol/L Normal 21.0-32.0 [facility] Comment on above: Performed By: #### L 100.0100, L500.4050 #### [facility] [address] [place], [address] Creatinine [Mass/Vol] 1.02 mg/dL Normal 0.70-1.20 [facility] Comment on above: Performed By: #### L 100.0100, L500.4050 #### [facility] [address] [place], [address] GAP 11 Normal 5-15 [facility] Comment on above: Performed By: #### L 100.0100, L500.4050 #### [facility] [address] [place], [address] GFR/1.73 sq M.predicted among non-blacks MDRD (S/P/Bld) [Vol rate/Area] 98 mL/min/{1.73_m2} Normal >60 [facility] Comment on above: Result Comment: mL/m in/1.73m2 CKD-EPI Creatinine Equation (2020) Performed By: #### L 100.0100, L500.4050 #### [facility] [address] [place], [address] Globulin (S) [Mass/Vol] 3.0 g/dL Normal 2.2-4.2 [facility] Comment on above: Performed By: #### L 100.0100, L500.4050 #### [facility] [address] [place], [address] Glucose [Mass/Vol] 268 mg/dL High 70-99 [facility] Comment on above: Performed By: #### L 100.0100, L500.4050 #### [facility] [address] [place], [address] Potassium [Moles/Vol] 4.7 mmol/L Normal 3.3-5.1 [facility] Comment on above: Performed By: #### L 100.0100, L500.4050 #### [facility] [address] [place], [address] Sodium [Moles/Vol] 137 mmol/L Normal 133-145 [facility] Comment on above: Performed By: #### L 100.0100, L500.4050 #### [facility] [address] [place], [address] T PROT 7.4 g/dL Normal 5.9-8.4 [facility] Comment on above: Performed By: #### L 100.0100, L500.4050 #### [facility] [address] [place], [address] Urea nitrogen [Mass/Vol] 17 mg/dL Normal 4-19 [facility] Comment on above: Performed By: #### L 100.0100, L500.4050 #### [facility] [address] [place], [address] Eosinophil percentageOrdered By: Alfred Katz on 03-09-2025 Eosinophils/100 WBC (Bld) 5.1 % High 0-5 [facility] Erythrocyte distribution wid th ratioOrdered By: Alfred Katz on 03-09-2025 Erythrocyte distribution width (RBC) [Ratio] 11.9 % 11.6-14.6 [facility] Erythrocyte distribution wid th standard deviationOrdered By: Alfred Katz on 03-09-2025 Erythrocyte distribution width (RBC) [Ratio] 38.0 fl 35.1-43.9 [facility] Glomerular filtration rate ( GFR) estimation/1.73 sq m using serum, plasma, or whole bOrdered By: Alfred Katz on 03-09-2025 GFR/1.73 sq M.predicted among non-blacks MDRD (S/P/Bld) [Vol rate/Area] 98 mL/min/{1.73_m2} >60 [facility] Comment on above: mL/min/1.73m2 CKD-EP I Creatinine Equation (2020) Hematocrit Auto (Bld) [Volum e fraction]Ordered By: Alfred Katz on 03-09-2025 Hematocrit (Bld) [Volume fraction] 41.6 % 40-54 [facility] Hemoglobin measurementOrdere d By: Alfred Katz on 03-09-2025 Hemoglobin (Bld) [Mass/Vol] 14.5 g/dL 13.0-16.5 [facility] Immature granulocytes/100 WB C Auto (Bld)Ordered By: Alfred Katz on 03-09-2025 Immature granulocytes/100 WBC (Bld) 0.200 % 0.0-0.9 [facility] Comment on above: IG% - Immature Granu locytes (promyelocytes, myelocytes and metamyelocytes) > 1% indicates that a LEFT SHIFT is Present. Internal Medicine Office Vis donald 03-09-2025 Internal Medicine Office Visit [facility] [address] [place], [place] [address] OFFICE VISIT Date of Service: 03/09/25 MR#: [id number] Acct: [id number] Name: LISAHANSGUILHERME HUI Jr. Rep #: [id number] : 1990 Provider: Dr. Alfred brown MD Age/Sex: 34/M Location: [facility] [place] Status: Signed Intake Vital Signs 11/04/24 14:02 03/09/25 10:26 Height 5 ft 7 in 5 ft 7 in Weight: 138 lb 6 oz BMI 21.7 BP 128/72 H Blood Pressure Location Lt brachial Position Sitting Respiration 16 Pulse 93 Pulse Source Monitor Temp 97.4 F L Temp Source Temporal Pulse Oximetry (%) 98 Oxygen Delivery Method room air Intake Visit Reasons: Rescheduled follow up + Toe surgery follow up Chief Complaint: Follow-up chronic conditions Curtain Worker Required: No Accompanied by: Self Is patient in pain?: Yes (back pain ) Pain scale (1-10): 8 Allergies No Known Allergies Allergy (Verified 03/09/25 10:32) Medications ???Medication ???Instructions ???Recorded ???Confirmed ???Type flash glucose sensor (FreeStyle #2 ea 02/19/23 03/09/25 Rx Celena 2 Sensor kit) acetaminophen 650 mg 1,300 mg PO ONCE 08/14/23 03/09/25 History tablet,extended release (Tylenol Arthritis Pain) tadalafil 5 mg tablet 5 mg PO DAILY PRN sexual activity 01/09/24 03/09/25 Rx #30 tabs insulin degludec 100 unit/mL (3 18 unit (0.18 mL) subcut QHS #15 m L 01/22/24 03/09/25 Rx mL) subcutaneous pen (Tresiba FlexTouch U-100 insulin) baclofen 10 mg tablet 10 mg PO BID PRN muscle spasm #30 04/15/24 03/09/25 Rx tabs olanzapine 5 mg tablet (Zyprexa) 5 mg PO QHS #30 tabs 04/19/2402/21 Rx sertraline 50 mg tablet 50 mg PO QDAY #60 tabs 05/13/24 Rx omeprazole 40 mg capsule,delayed 40 mg PO DAILY #90 caps 07/19/24 0 03/09/25 Rx release blood-glucose sensor (FreeStyle #2 ea 10/19/24 03/09/25 Rx Celena 3 Plus Sensor device) loperamide 2 mg tablet (Imodium 2 mg PO Q6H PRN loose stool 03/09/25 History A-D) [id number]-[id number] 2 cap PO TID #300 caps 11/10/24 Rx 40,000-126,000-168,000 unit capsule, delay rel (Zenpep) Novolog FlexPen U-100 Insulin 100 20 unit (0.2 mL) subcut TIDCM 12/1503/09/25 Rx unit/mL (3 mL) subcutaneous DIABETES #15 mL (insulin aspart U-100) pen needle, diabetic 32 gauge x #100 ea 01/26/25 03/09/25 Rx 5/16 (Comfort EZ Pen Ilion) [facility] Medical History (Updated 03/09/25 @ 16:[address] Alfred Katz MD) Toe contusion URI (upper respiratory infection) Lower extremity weakness Chronic diarrhea Myalgia Myositis Musculoskeletal back pain Elevated blood pressure reading without diagnosis of hypertension Gastroenteritis Type 1 diabetes mellitus Major depression with psychotic features Headache Pain and numbness of upper extremity Vision problems Arthritis Headache, migraine Anxiety and depression Surgical History trigger finger surgery Family History Grandfather Myocardial infarction COPD (chronic obstructive pulmonary disease) Brother Depression suicide attempt Uncle Diabetes Father Diabetes Aunt Diabetes Social History Smoking Status: Current every day smoker tobacco type: cigarettes Tobacco: How many years used: 13 second hand exposure: No quit status: not considering quitting alcohol intake: never substance use type: marijuana what type of physical activity do you participate in: walking, running and weight training frequency: 3-4 times per week HPI HPI Chief Complaint: Follow-up chronic conditions Details: HANS GONZALEZ, is a 34-year-old male presenting for follow-up of his chronic medical conditions. History of chronic back pain status post recent MRI. The patient noted that after having an MRI in November, he had not been updated on the results until now. Follows up with Ortho/spine. States that the pain persists. The patient also discusses a toe injury sustained about one to two months prior, caused by accidentally walking into a garment, leading to a loss of balance and direct trauma to the toe. At the time of the incident, the toe was swollen with noticeable discoloration, but the patient reported self-treatment involving rest and taping the toe for support. Swelling and discoloration have improved, still has some pain. No concerns with ambulation reported. Additionally, the patient reports an overall feeling of emotional numbness, contrasting with past experiences of significant depressive symptoms. He expressing neutrality towards emotional stimuli, such as interacting with close family members. The patient recognizes a lack of emotional response in situations wher (more content not included)... Normal [facility] - Chemistry and C hemistry - challengeOrdered By: Alfred Katz on 03-09-2025 AST [Catalytic activity/Vol] 16 U/L <38 [facility] MCV (mean corpuscular volume ) determinationOrdered By: Alfred Katz on 03-09-2025 MCV (RBC) [Entitic vol] 87.8 fL 80-94 [facility] Mean corpuscular hemoglobin (MCH) determinationOrdered By: Alfred Katz on 03-09-2025 MCH (RBC) [Entitic mass] 30.6 pg 27.0-32.0 [facility] Mean corpuscular hemoglobin concentration (MCHC) determinationOrdered By: Alfred Katz on 03-09-2025 MCHC (RBC) [Mass/Vol] 34.9 g/dL 32-36 [facility] Mean platelet volume determi nationOrdered By: Alfred Katz on 03-09-2025 Platelet mean volume (Bld) [Entitic vol] 10.0 fL 6.2-12.0 [facility] Monocyte percentageOrdered B y: Alfred Katz on 03-09-2025 Monocytes/100 WBC (Bld) 10.5 % High 0-10 [facility] Neutrophil percentageOrdered By: Alfred Katz on 03-09-2025 Neutrophils/100 WBC (Bld) 57.7 % 47-70 [facility] Nucleated red blood cell per centageOrdered By: Alfred Katz on 03-09-2025 Nucleated RBC/100 WBC (Bld) [Ratio] 0 % 0-5 [facility] Platelet countOrdered By: Davion Katz on 03-09-2025 Platelets (Bld) [#/Vol] 332 10*3/uL 150-450 [facility] Potassium measurement (mass/ volume)Ordered By: Alfred Katz on 03-09-2025 Potassium (Unsp spec) [Mass/Vol] 4.7 mmol/L 3.3-5.1 [facility] RBC Auto (Bld) [#/Vol]Ordere d By: Alfred Katz on 03-09-2025 RBC (Bld) [#/Vol] 4.74 10*6/uL 4.6-6.2 [facility] Serum creatinine measurement (mass/volume)Ordered By: Alfred Katz on 03-09-2025 Creatinine [Mass/Vol] 1.02 mg/dL 0.70-1.20 [facility] Serum globulin measurementOr dered By: Alfred Katz on 03-09-2025 Globulin (S) [Mass/Vol] 3.0 g/dL 2.2-4.2 [facility] Serum glucose measurement (m ass/volume)Ordered By: Alfred Katz on 03-09-2025 Glucose [Mass/Vol] 268 mg/dL High 70-99 [facility] Serum or plasma alanine zuluaga otransferase (ALT) measurementOrdered By: Alfred Katz on 03-09-2025 ALT [Catalytic activity/Vol] 7 U/L <47 [facility] Serum or plasma albumin allyn urement (mass/volume)Ordered By: Alfrde Katz on 03-09-2025 Albumin [Mass/Vol] 4.4 g/dL 3.5-5.0 [facility] Serum or plasma albumin/glob ulin mass ratioOrdered By: Alfred Katz on 03-09-2025 Albumin/Globulin [Mass ratio] 1.5 {ratio} 0.9-2.4 [facility] Serum or plasma alkaline linda sphatase measurementOrdered By: Alfred Katz on 03-09-2025 ALP [Catalytic activity/Vol] 126 U/L 40-129 [facility] Serum or plasma calcium allyn urement (mass/volume)Ordered By: Alfred Katz on 03-09-2025 Calcium [Mass/Vol] 9.5 mg/dL 7.6-11.0 [facility] Serum or plasma urea nitroge n measurement (mass/volume)Ordered By: Alfred Katz on 03-09-2025 Urea nitrogen [Mass/Vol] 17 mg/dL 4-19 [facility] Sodium levelOrdered By: Crystal Katz on 03-09-2025 Sodium [Moles/Vol] 137 mmol/L 133-145 [facility] Total proteinOrdered By: Austen Katz on 03-09-2025 Protein [Mass/Vol] 7.4 g/dL 5.9-8.4 [facility] White blood cell (WBC) count Ordered By: Alfred Katz on 03-09-2025 WBC (Bld) [#/Vol] 4.9 10*3/uL 4.4-11.0 [facility] Gastroenterology Visit Repor ton 02-01-2025 Gastroenterology Visit Report [facility] [address] [place] [address] OFFICE VISIT Date of Service: 02/01/25 MR#: [id number] Acct: [id number] Name: HANS GONZALEZ Rep #: [id number] : 1990 Provider: BÁRBARA Glez Age/Sex: 34/M Location: [facility] [place] Status: Signed Intake Vital Signs 11/04/24 14:02 Height 5 ft 7 in Intake Visit Reasons: 3 M FU Chief Complaint: loose stools Allergies No Known Allergies Allergy (Verified 11/04/24 14:03) Medications ???Medication ???Instructions ???Recorded ???Confirmed ???Type flash glucose sensor (FreeStyle #2 ea 02/19/23 10/27/24 Rx Celena 2 Sensor kit) acetaminophen 650 mg 1,300 mg PO ONCE 08/14/23 10/27/24 History tablet,extended release (Tylenol Arthritis Pain) tadalafil 5 mg tablet 5 mg PO DAILY PRN sexual activity 01/09/24 10/27/24 Rx #30 tabs insulin degludec 100 unit/mL (3 18 unit (0.18 mL) subcut QHS #15 m L 01/22/24 11/04/24 Rx mL) subcutaneous pen (Tresiba FlexTouch U-100 insulin) baclofen 10 mg tablet 10 mg PO BID PRN muscle spasm #30 04/15/24 02/01/25 Rx tabs olanzapine 5 mg tablet (Zyprexa) 5 mg PO QHS #30 tabs 04/19/24 05/01/14 Rx sertraline 50 mg tablet 50 mg PO QDAY #60 tabs 05/13/24 Rx omeprazole 40 mg capsule,delayed 40 mg PO DAILY #90 caps 07/19/24 0 02/01/25 Rx release blood-glucose sensor (FreeStyle #2 ea 10/19/24 10/27/24 Rx Celena 3 Plus Sensor device) loperamide 2 mg tablet (Imodium 2 mg PO Q6H PRN loose stool 11/04/24 History A-D) edqxsn-aahtubzo-mqblawv 2 cap PO TID #300 caps 11/10/24 Rx 40,000-126,000-168,000 unit capsule, delay rel (Zenpep) Novolog FlexPen U-100 Insulin 100 20 unit (0.2 mL) subcut TIDCM 12/15 Rx unit/mL (3 mL) subcutaneous DIABETES #15 mL (insulin aspart U-100) pen needle, diabetic 32 gauge x #100 ea 01/26/25 Rx 5/16 (Comfort EZ Pen Ilion) amoxicillin 875 mg-potassium 1 tab PO BID 02/01/25 02/01/25 His tory clavulanate 125 mg tablet azithromycin 250 mg tablet mg PO 02/01/25 02/01/25 History Nurse's Note: OV 02/01/25 Pt here for a f/u and reports nausea, vomiting, diarrhea, gas, bloating, and heartburn. Pt reports his stools have changed colors. Pt reports he feels dizzy and sees static when he looks at the ioana. He reports no medication changes. [facility] Medical History URI (upper respiratory infection) Lower extremity weakness Chronic diarrhea Myalgia Myositis Musculoskeletal back pain Elevated blood pressure reading without diagnosis of hypertension Gastroenteritis Type 1 diabetes mellitus Major depression with psychotic features Headache Pain and numbness of upper extremity Vision problems Arthritis Headache, migraine Anxiety and depression Surgical History trigger finger surgery Family History Grandfather Myocardial infarction COPD (chronic obstructive pulmonary disease) Brother Depression suicide attempt Uncle Diabetes Father Diabetes Aunt Diabetes Social History Smoking Status: Current every day smoker tobacco type: cigarettes Tobacco: How many years used: 13 second hand exposure: No quit status: not considering quitting alcohol intake: never substance use type: marijuana what type of physical activity do you participate in: walking, running and weight training frequency: 3-4 times per week HPI HPI Chief Complaint: loose stools Details: HANS GONZALEZ, is a 34 M who presents to the office today for follow-up. BGI established in Jul 2024 with loose stools 2-3x per day for years and burning chest pain associated with eructation. Occasional having nocturnal symptoms. Uses PRN OTC antidiarrheals. Colonoscopy and EGD one year ago without abnormality. PT with a PMHx of DM type I. Stool 5.19.25; elastase 98 L, Giardia negative, enteric path negative, c.dif negative OV 5.21.25 Pt continues with loose stools 2-3 times per day. He rarely has formed stools. Taking Imodium daily to control symptoms. Start Zenpep. OV 8.12.25 patient here today for follow-up regarding his loose stools. He is having less daily loose stools. He has a few bowel movements per week that are soft. He is taking Zenpep 3 pills with meals and 2 with snacks. He feels this medication has been helpful. ROS Const Constitutional: Positive for fatigue, frequent falls, headache(s), weakness and weight change; No fever(s) ENT ENT: Positive for headache(s); No difficulty swallowing Cardio Cardiology: Positive for leg pain with exertion Gastro GI: Positive for change in bowel habit (more content not included)... Normal [facility] Magnetic resonance imaging r eportOrdered By: Jeevan Benites on 11-25-2024 Study report [facility] Imaging Services [address] [place], [place] [address] Spine Lumbar (Routine) MR#: [id number] Acct: [id number] Name: HANS GONZALEZ Jr. Rep #: [id number] : 1990 M 34 From: Escobar Benites DO PCP: Dr. Alfred Katz MD Status: R EG CLI Study:Spine Lumbar (Routine) Date of Exam: 11/25/24 Exam# [id number] Ordering Dr: Dell Alonso PROCEDURE: SPINE LUMBAR (ROUTINE) 11/25/2024 REASON FOR EXAM: PAIN TECHNIQUE: Multiplanar and multisequence images were obtained without IV contrast administration. COMPARISON: None FINDINGS: Vertebral body heights are within normal limits. Negative for fracture or marrow replacement. Alignment is intact. Conus medullaris is within normal limits and terminates at L1. No paraspinal mass. L1-2: No focal disc abnormality, spinal stenosis or foraminal narrowing. L2-3: No focal disc abnormality, spinal stenosis or foraminal narrowing. L3-4: No focal disc abnormality, spinal stenosis or foraminal narrowing. L4-5: No focal disc abnormality, spinal stenosis or foraminal narrowing. L5-S1: Minimal posterior disc bulge. No significant spinal stenosis. Minimal left foraminal narrowing. MRI/Spine Lumbar (Routine) IMPRESSION: No significant disc abnormality, spinal stenosis or foraminal narrowing. [facility] CC: BÁRBARA Bennett; Dr. 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 [facility] Spine Lumbar (Routine)on Spine Lumbar (Routine) [facility] Imaging Services [address] [place] [id number] Spine Lumbar (Routine) MR#: [id number] Acct: [id number] Name: HANS GONZALEZ JrSoco Rep #: [id number] : 1990 M 34 From: Jeevan Lundberg PCP: Dr. Alfred Katz MD Status: REG CLI Study: Spine Lumbar (Routine) Date of Exam: 11/25/24 Exam# [id number] Ordering Dr: Criss Alonso PROCEDURE: SPINE LUMBAR (ROUTINE) 11/25/2024 REASON FOR EXAM: PAIN TECHNIQUE: Multiplanar and multisequence images were obtained without IV contrast administration. COMPARISON: None FINDINGS: Vertebral body heights are within normal limits. Negative for fracture or marrow replacement. Alignment is intact. Conus medullaris is within normal limits and terminates at L1. No paraspinal mass. L1-2: No focal disc abnormality, spinal stenosis or foraminal narrowing. L2-3: No focal disc abnormality, spinal stenosis or foraminal narrowing. L3-4: No focal disc abnormality, spinal stenosis or foraminal narrowing. L4-5: No focal disc abnormality, spinal stenosis or foraminal narrowing. L5-S1: Minimal posterior disc bulge. No significant spinal stenosis. Minimal left foraminal narrowing. MRI/Spine Lumbar (Routine) IMPRESSION: No significant disc abnormality, spinal stenosis or foraminal narrowing. Reading Location: [facility] CC: BÁRBARA Bennett; Dr. Alfred Katz MD Billing And Quality Technician: Signed Normal [facility] Calprotectin, Stoolon [address] 13 ug/g Normal 0-120 [facility] Comment on above: Result Comment: Conc entration Interpretation Follow-Up < 5 - 50 ug/g Normal None >50 -120 ug/g Borderline Re-evaluate in 4-6 weeks >120 ug/g Abnormal Repeat as clinically indicated Performed at: - [address] [id number] Tire Service Technician: Mckayla Beckford MD, Phone: [phone] Performed By: #### L 500.0612, F852.010 #### [facility] [address] [place], [address] Gastroenterology Visit Repor ton 11-10-2024 Gastroenterology Visit Report [facility] Gastroenterology [address] [place] [address] OFFICE VISIT Date of Service: 11/10/24 MR#: [id number] Acct: [id number] Name: HANS GONZALEZ Jr. Rep #: [id number] : 1990 Provider: BÁRBARA Glez Age/Sex: 34/M Location: [facility] [place] Status: Signed Intake Vital Signs 07/29/24 09:44 11/04/24 14:02 Height 5 ft 7 in 5 ft 7 in Intake Visit Reasons: 3 M FU Chief Complaint: loose stools Is patient in pain?: Yes Allergies No Known Allergies Allergy (Verified 11/04/24 14:03) Have you fallen in the past year?: No Nurse's Note: OV 11/10/24 Pt here for f/u and reports diarrhea daily. Continues omeprazole and Imodium. [facility] Medical History URI (upper respiratory infection) Lower extremity weakness Chronic diarrhea Myalgia Myositis Musculoskeletal back pain Elevated blood pressure reading without diagnosis of hypertension Gastroenteritis Type 1 diabetes mellitus Major depression with psychotic features Headache Pain and numbness of upper extremity Vision problems Arthritis Headache, migraine Anxiety and depression Surgical History trigger finger surgery Family History Grandfather Myocardial infarction COPD (chronic obstructive pulmonary disease) Brother Depression suicide attempt Uncle Diabetes Father Diabetes Aunt Diabetes Social History Smoking Status: Current every day smoker tobacco type: cigarettes Tobacco: How many years used: 13 second hand exposure: No quit status: not considering quitting alcohol intake: never substance use type: marijuana what type of physical activity do you participate in: walking, running and weight training frequency: 3-4 times per week HPI HPI Chief Complaint: loose stools Details: HANS GONZALEZ, is a 34 M who presents to the office today for f/u. BGI established in Jul 2024 with loose stools 2-3x per day for years and burning chest pain associated with eructation. Occasional having nocturnal symptoms. Uses PRN OTC antidiarrheals. Colonoscopy and EGD one year ago without abnormality. PT with a PMHx of DM type I. Stool 5.19.25; elastase 98 L, Giardia negative, enteric path negative, c.dif negative OV 5.21.25 Pt continues with loose stools 2-3 times per day. He rarely has formed stools. Taking Imodium daily to control symptoms. ROS Const Constitutional: Positive for fatigue, headache(s), weakness and weight change; No fever(s) ENT ENT: Positive for headache(s); No difficulty swallowing Cardio Cardiology: Positive for leg pain with exertion Gastro GI: Positive for bloating, change in bowel habits, diarrhea, heartburn, excessive flatus, nausea/dyspepsia and vomiting; No abdominal pain, belching, change in stool character, coffee ground emesis, constipation, cramping, difficulty swallowing, feeling full early, incontinent of stools, Vomiting blood/hematemesis, Blood in stool, loose stools, Black,tarry stools, pain with swallowing or other Musc Musculoskeletal: Positive for abnormal gait, joint pain, back pain, muscle cramps, stiffness, restless legs, leg pain at night and leg pain with exertion Skin Skin: Positive for dry skin and itchy eyes; No yellowing of the eye Neuro Neurology: Positive for abnormal gait, dizziness, weakness, headache(s) and restless legs Psych Psychiatric: Positive for anxiety, Positive for depression and Positive for Compulsive Behavior Endo Endocrine: Positive for fatigue and weight change Aller/Imm Allergy/Immunologic: Positive for itchy eyes Christiano/Lymp Hematologic/Lymphatic: Positive for easy bleeding; No easy bruising Exam Const General: cooperative and healthy appearing Nutritional Appearance: average body habitus Orientation: alert and awake HENMT Head: normal to inspection Neck Neck: normal visual inspection Chest Chest palpation inspection: normal inspection of the chest Resp Effort Inspection: normal respiratory effort GI Inspection: normal to inspection Auscultation: normal bowel sounds Palpation: soft Assessment and Plan Assessment and Plan (1) Diabetes mellitus type I: Status: Chronic Qualifiers: Diabetes mellitus complication status: with hyperglycemia Qualified Code(s): E10.65 - Type 1 diabetes mellitus with hyperglycemia Plan: This is a 34 yo male pt here today for f/u regarding chronic diarrhea. At last appointment, I ordered stool testing for infection and EPI. Stool test revealed a low elastase of 98. Negative for infection. He does have a hx of DM type I which may have led to decreased exocrine function of his pancreas. Colonoscopy and EG (more content not included)... Normal [facility] Giardia Lamblia, Stool EIAon 11-09-2024 Giardia Stool Negative Normal Negative [facility] Comment on above: Result Comment: Perf ormed at: - [facility] [address] [id number] Tire Service Technician: Mckayla Beckford MD, Phone: [phone] Performed at: - [facility] [address] [id number] Tire Service Technician: Kole Dye PhD, Phone: [phone] Performed By: #### L 500.2500, L100.0100 #### [facility] [address] [facility] [place], [address] L7000.0750on 11-09-2024 P ELASTASE,FECA 98 Low >200 [facility] Comment on above: Result Comment: Resu lt Units: ug Elast./g Severe Pancreatic Insufficiency: <100 Moderate Pancreatic Insufficiency: 100 - 200 Normal: >200 Performed By: #### L 500.2500, L100.0100 #### [facility] [address] [place], [address] CDIFF (PCR)on 11-08-2024 CDIFF A positive C. diffic ile molecular test does not differentiate between an active C. difficile infection and C. difficile colonization. Use clinical judgement and paired toxin/antigen testing to identify true infection and need for treatment. C diff DNA Spec Ql ANANTH+probe Reference Range: Negative Cepheid GeneXpert: polymerase chain reaction (PCR) 027 027 NAP1-B1 Presumptive Negative *for epidemiolologic???use C. Diff PCR Negative- No toxigenic C. Diff Detected Normal [facility] Comment on above: Performed By: #### L 500.2500, L100.0100 #### [facility] [address] [place], [address] Calprotectin stoolOrdered By : Maria Elena Prater on 11-08-2024 Calprotectin stool 13 ug/g 0-120 [facility] Comment on above: Concentration Interp retation Follow-Up< 5 - 50 ug/g Normal None>50 -120 ug/g Borderline Re-evaluate in 4-6 weeks >120 ug/g Abnormal Repeat as clinically indicatedPerformed at: [employer] - [facility] [address] [id number] Director: Mckayla Beckford MD, Phone: [phone] Clostridium difficile detect ion by polymerase chain reactionOrdered By: Maria Elena Prater on 11-08-2024 C. difficile DNA ANANTH+probe Ql (Unsp spec) [facility] ENTERIC PATHOGEN PANEL STOOL on 11-08-2024 EP PANEL Normal Reference Ran ge = Not Detected Nucleic acid amplification test method Not detected for Campylobacter group, Salmonella species, Shigella species, Vibrio Group, Yersinia enterocolitica, EHEC (Shiga Toxin 1, Shiga Toxin 2), Norovirus Gl/Gll, and Rotavirus A. Other common stool pathogens are not detected on this panel include: Aeromonas/Plesiomonas or parasites. Order testing for these organisms separately if suspected. This is an amplified DNA test which makes it both specific and sensitive. CAMPYLOBACTER Not Detected Norovirus Not Detected Rotavirus Not Detected Salmonella Not Detected Shiga Toxin Not Detected Shigella sp. Not Detected VIBRIO Not Detected Yersinia Not Detected Normal [facility] Comment on above: Performed By: #### L 500.2500, L100.0100 #### [facility] [place], [address] Giardia lamblia ag stool EIA Ordered By: Maria Elena Prater on 11-08-2024 G. lamblia Ag IA Ql (Stl) Negative Negative [facility] Comment on above: Performed at: [facility] - [facility] [address] [id number] Director: Mckayla Beckford MD, Phone: [phone] at: - [facility] [address] [id number] Director: Kole Dye PhD, Phone: [phone] Stool pancreatic elastase me asurement (mass/mass)Ordered By: Maria Elena Prater on 11-08-2024 Elastase.pancreatic (Stl) [Mass/Mass] 98 Low >200 [facility] Comment on above: Result Units: ug [address] st./g Severe Pancreatic Insufficiency: <100 Moderate Pancreatic Insufficiency: 100 - 200 Normal: >200 12 Lead EKGon 11-04-2024 12 Lead EKG [facility] Cardiovascular Services [address] [place] [address] 12 Lead EKG 11/04/24 1528 MR#: [id number] Acct: [id number] Name: HANS GONZALEZ Jr. Rep #: [id number] : 1990 34 From: Valente Barone MD Attending Dr: Status: DEP ER Ordering Dr: Chapo Dukes DO Date: 11/04/24 Location: ED Sex: M C Admitted: Test Reason : SYNCOPE Blood Pressure : */* mmHG Vent. Rate : 76 BPM Atrial Rate : 76 BPM P-R Int : 142 ms QRS Dur : 80 ms QT Int : 352 ms P-R-T Axes : 10 51 59 degrees QTcB Int : 396 ms Normal sinus rhythm Normal ECG Confirmed by VALENTE BARONE MD ([id number]), editor managing director BOLA JIMENEZ ([id number]) on 11/08/2024 8:39:25 AM Referred By: Confirmed By: VALENTE BARONE MD 11/08/24 0839 Date Valente Barone MD CC: Dr. Chapo Dukes DO; Dr. Alfred Katz MD Signed Normal [facility] Absolute lymphocyte countOrd ered By: ED PROVIDER on 11-04-2024 Lymphocytes Auto (Unsp spec) [#/Vol] 2.28 10*3/uL 0.83-4.51 [facility] Absolute neutrophil countOrd ered By: ED PROVIDER on 11-04-2024 Neutrophils (Bld) [#/Vol] 3.9 10*3/uL 2.0-7.7 [facility] Anion gap in Serum or Plasma Ordered By: Chapo Dukes on 11-04-2024 Anion gap [Moles/Vol] 16 mmol/L High 11-04 [facility] Automated lymphocyte count a s percentage of total leukocytesOrdered By: ED PROVIDER on 11-04-2024 Lymphocytes/100 WBC Auto (Unsp spec) 31.6 % 19-41 [facility] BUN/creatinine ratioOrdered By: Chapo Dukes on 11-04-2024 Urea nitrogen/Creatinine [Mass ratio] 13.3 mg/mg - [facility] Basic Metabolic Profile (BMP )on 11-04-2024 BUN/CRE 13.3 RATIO Normal - [facility] Comment on above: Performed By: #### L 500.2500, L100.0100 #### [facility] [address] [place], [address] Calcium [Mass/Vol] 10.0 mg/dL Normal 7.6-11.0 [facility] Comment on above: Performed By: #### L 500.2500, L100.0100 #### [facility] [address] [place], [address] Chloride [Moles/Vol] 98 mmol/L Normal 98-108 [facility] Comment on above: Performed By: #### L 500.2500, L100.0100 #### [facility] [address] [place], [address] CO2 [Moles/Vol] 19.5 mmol/L Low 21.0-32.0 [facility] Comment on above: Performed By: #### L 500.2500, L100.0100 #### [facility] [address] [place], [address] Creatinine [Mass/Vol] 1.38 mg/dL High 0.70-1.20 [facility] Comment on above: Performed By: #### L 500.2500, L100.0100 #### [facility] [address] [place], [address] GAP 16 High 5-15 [facility] Comment on above: Performed By: #### L 500.2500, L100.0100 #### [facility] [address] [place], [address] GFR/1.73 sq M.predicted among non-blacks MDRD (S/P/Bld) [Vol rate/Area] 68 mL/min/{1.73_m2} Normal >60 [facility] Comment on above: Result Comment: mL/m in/1.73m2 CKD-EPI Creatinine Equation (2020) Performed By: #### L 500.2500, L100.0100 #### [facility] [address] [place], [address] Glucose [Mass/Vol] 240 mg/dL High 70-99 [facility] Comment on above: Performed By: #### L 500.2500, L100.0100 #### [facility] [address] [place], [address] Potassium [Moles/Vol] 3.7 mmol/L Normal 3.3-5.1 [facility] Comment on above: Performed By: #### L 500.2500, L100.0100 #### [facility] [address] [place], [address] Sodium [Moles/Vol] 134 mmol/L Normal 133-145 [facility] Comment on above: Performed By: #### L 500.2500, L100.0100 #### [facility] [address] [place], [address] Urea nitrogen [Mass/Vol] 18 mg/dL Normal 4-19 [facility] Comment on above: Performed By: #### L 500.2500, L100.0100 #### [facility] [address] [place], [address] Basophil percentageOrdered B y: ED PROVIDER on 11-04-2024 Basophils/100 WBC (Bld) 1.2 % High 0-1 [facility] Bedside Glucoseon 11-04-2024 FINGERSTICK GLU 264 mg/dL High 74-106 [facility] Comment on above: Result Comment: MELANIE REAGAN OF PATIENT CARE PER NURSING PROTOCOL Performed By: #### L 500.2500, L100.0100 #### [facility] [address] [place], [address] Beta-Hydroxbytyrateon 2024 BETA-HYDROXYBUT 0.2 mmol/L Normal 0.0-0.3 [facility] Comment on above: Performed By: #### L 400.0001 #### [facility] [address] [place], [address] Beta-hydroxybutyrateOrdered By: Chapo Dukes on 11-04-2024 Beta hydroxybutyrate [Mass/Vol] 0.2 mmol/L 0.0-0.3 [facility] Bilirubin Test strip Ql (U)O rdered By: Chapo Dukes on 11-04-2024 Bilirubin Ql (U) Negative Negative [facility] Bilirubin directOrdered By: Chapo Dukes on 11-04-2024 Bilirubin.direct [Mass/Vol] 0.56 mg/dL High 0.00-0.30 [facility] Bilirubin, totalOrdered By: Chapo Dukes on 11-04-2024 Bilirubin [Mass/Vol] 1.67 mg/dL High 0.00-1.30 [facility] CBC W/Diff, Automatedon 10-21 Absolute Lymph 2.28 X10 3/uL Normal 0.83-4.51 [facility] Comment on above: Performed By: #### L 500.2500, L100.0100 #### [facility] [address] [place], [address] Absolute Neut 3.9 X10 3/uL Normal 2.0-7.7 [facility] Comment on above: Performed By: #### L 500.2500, L100.0100 #### [facility] [address] [place], [address] Basophils/100 WBC (Bld) 1.2 % High 0-1 [facility] Comment on above: Performed By: #### L 500.2500, L100.0100 #### [facility] [address] [place], [address] Eosinophils/100 WBC (Bld) 2.8 % Normal 0-5 [facility] Comment on above: Performed By: #### L 500.2500, L100.0100 #### [facility] [address] [place], [address] Erythrocyte distribution width (RBC) [Ratio] 11.4 % Low 11.6-14.6 [facility] Comment on above: Performed By: #### L 500.2500, L100.0100 #### [facility] [address] [place], [address] Hematocrit (Bld) [Volume fraction] 40.0 % Normal 40-54 [facility] Comment on above: Performed By: #### L 500.2500, L100.0100 #### [facility] [address] [place], [address] Hemoglobin (Bld) [Mass/Vol] 14.7 g/dL Normal 13.0-16.5 [facility] Comment on above: Performed By: #### L 500.2500, L100.0100 #### [facility] [address] [place], [address] IG% 0.400 Normal 0.0-0.9 [facility] Comment on above: Result Comment: IG% - Immature Granulocytes (promyelocytes, myelocytes and metamyelocytes) > 1% indicates that a LEFT SHIFT is Present. Performed By: #### L 500.2500, L100.0100 #### [facility] [address] [place], [address] Lymphocytes/100 WBC (Bld) 31.6 % Normal 19-41 [facility] Comment on above: Performed By: #### L 500.2500, L100.0100 #### [facility] [address] [place], [address] MCH (RBC) [Entitic mass] 31.0 pg Normal 27.0-32.0 [facility] Comment on above: Performed By: #### L 500.2500, L100.0100 #### [facility] [address] [place], [address] MCHC (RBC) [Mass/Vol] 36.8 g/dL High 32-36 [facility] Comment on above: Performed By: #### L 500.2500, L100.0100 #### [facility] [address] [place], [address] MCV (RBC) [Entitic vol] 84.4 fL Normal 80-94 [facility] Comment on above: Performed By: #### L 500.2500, L100.0100 #### [facility] [address] [place], [address] Monocytes/100 WBC (Bld) 10.1 % High 0-10 [facility] Comment on above: Performed By: #### L 500.2500, L100.0100 #### [facility] [address] [place], [address] Neutrophils/100 WBC (Bld) 53.9 % Normal 47-70 [facility] Comment on above: Performed By: #### L 500.2500, L100.0100 #### [facility] [address] [place], [address] Nucleated RBC (Bld) [#/Vol] 0 10*3/uL Normal 0-5 [facility] Comment on above: Performed By: #### L 500.2500, L100.0100 #### [facility] [address] [place], [address] Platelet mean volume (Bld) [Entitic vol] 9.8 fL Normal 6.2-12.0 [facility] Comment on above: Performed By: #### L 500.2500, L100.0100 #### [facility] [address] [place], [address] Platelets (Bld) [#/Vol] 362 10*3/uL Normal 150-450 [facility] Comment on above: Performed By: #### L 500.2500, L100.0100 #### [facility] [address] [place], [address] RBC (Bld) [#/Vol] 4.74 10*6/uL Normal 4.6-6.2 [facility] Comment on above: Performed By: #### L 500.2500, L100.0100 #### [facility] [address] [place], [address] RDW SD 34.7 fl Low 35.1-43.9 [facility] Comment on above: Performed By: #### L 500.2500, L100.0100 #### [facility] [address] [place], [address] WBC (Bld) [#/Vol] 7.2 10*3/uL Normal 4.4-11.0 [facility] Comment on above: Performed By: #### L 500.2500, L100.0100 #### [facility] [address] [place], [address] Carbon dioxide, total [Moles /volume] in Central venous bloodOrdered By: Chapo Dukes on 11-04-2024 CO2 [Moles/Vol] 19.5 mmol/L Low 21.0-32.0 [facility] Chest 1 View (Portable)on Chest 1 View (Portable) [facility] Imaging Services [address] [place] [address] Chest 1 View (Portable) MR#: [id number] Acct: [id number] Name: HANS GONZALEZ Jr. Rep #: [id number] : 1990 M 34 From: Crow sanchez MD PCP: Dr. Alfred Katz MD Status: REG ER Study: Chest 1 View (Portable) Date of Exam: 11/04/24 Exam# [id number] Ordering Dr: Chapo Dukes DO PROCEDURE: CHEST 1 VIEW (PORTABLE) 11/04/2024 REASON FOR EXAM: STROKE TECHNIQUE: Frontal view of the chest. COMPARISON: July 08, 2023. FINDINGS: Hardware: EKG electrodes are seen. Heart: Cardiac and mediastinal contours are stable. Lungs: No significant change in the appearance of the lungs. Bones: The bones are unremarkable. Other: RAD/Chest 1 View (Portable) IMPRESSION: Negative Chest. [facility] CC: Dr. Chapo Dukes DO; Dr. 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 Performed By: #### L 300.8000 #### [facility] [address] [facility] [place], [address] Emergency Department Summary on 11-04-2024 Emergency Department Summary [facility] Medical Records Department [address] [place] [address] Emergency Department Summary 11/04/24 MR#: [id number] Acct: [id number] Name: HANS GONZALEZ Jr. Rep #: [id number] : 1990 34 From: hCapo Dukes DO PCP: Dr. Alfred Katz MD Status:DEP ER Location: ED HPI History of Present Illness Chief Complaint: Syncope Informant: patient Narrative Narrative: 34-year-old male presenting to the emergency room with near syncope. Patient tells me that he woke up around 11:00 this morning. Around 1:00 he was putting pressure into a tire and he stood up and felt very lightheaded like he was going to pass out. States he went told his boss when he stood up again he states that same symptoms returned. He states a coworker had to catch him. He never actually lost consciousness. He states that the lights outside are too bright for him and the lights inside are not as bad but are still very bright. He notes he has been having some chronic diarrhea states he is having some test done with his PCP and GI. He notes some chronic pain in his back for which he has an MRI scheduled. He notes various aches throughout his body including his legs and right forearm. He has a history of diabetes peptic ulcer disease arthritis. Patient states he has been feeling short of breath right. Aspirated by means by diagnosis breathing. Normal okay he states that just seems like he cannot get a good breath. [facility] Medical History URI (upper respiratory infection) Lower extremity weakness Chronic diarrhea Myalgia Myositis Musculoskeletal back pain Elevated blood pressure reading without diagnosis of hypertension Gastroenteritis Type 1 diabetes mellitus Major depression with psychotic features Headache Pain and numbness of upper extremity Vision problems Arthritis Headache, migraine Anxiety and depression Home Medications ???Medication ???Instructions ???Recorded ???Last Taken ???Type flash glucose sensor (FreeStyle #2 ea 02/19/23 Unknown Rx Celena 2 Sensor kit) acetaminophen 650 mg 1,300 mg PO ONCE 08/14/23 Unknown History tablet,extended release (Tylenol Arthritis Pain) tadalafil 5 mg tablet 5 mg PO DAILY PRN sexual activity 01/09/24 Unknown Rx #30 tabs Novolog FlexPen U-100 Insulin 100 20 unit (0.2 mL) subcut TIDCM 07/16 Unknown Rx unit/mL (3 mL) subcutaneous DIABETES #15 mL (insulin aspart U-100) insulin degludec 100 unit/mL (3 18 unit (0.18 mL) subcut QHS #15 m L 01/22/24 Unknown Rx mL) subcutaneous pen (Tresiba FlexTouch U-100 insulin) baclofen 10 mg tablet 10 mg PO BID PRN muscle spasm #30 04/15/24 Unknown Rx tabs olanzapine 5 mg tablet (Zyprexa) 5 mg PO QHS #30 tabs 04/19/24 Unkn own Rx sertraline 50 mg tablet 50 mg PO QDAY #60 tabs 05/13/24 Un known Rx omeprazole 40 mg capsule,delayed 40 mg PO DAILY #90 caps 07/19/24 U nknown Rx release blood-glucose sensor (FreeStyle #2 ea 10/19/24 Unknown Rx Celena 3 Plus Sensor device) loperamide 2 mg tablet (Imodium 2 mg PO Q6H PRN loose stool Unknown History A-D) Allergy/AdvReac Type Severity Reaction Status Date / Time No Known Allergies Allergy Verified 11/04/24 14:03 Family History Grandfather Myocardial infarction COPD (chronic obstructive pulmonary disease) Brother Depression suicide attempt Uncle Diabetes Father Diabetes Aunt Diabetes Surgical History trigger finger surgery Social History Smoking Status: Current every day smoker tobacco type: cigarettes Tobacco: How many years used: 13 second hand exposure: No quit status: not considering quitting alcohol intake: never substance use type: marijuana what type of physical activity do you participate in: walking, running and weight training frequency: 3-4 times per week ROS ROS ED ROS Narrative Lightheadedness light sensitivity Constitutional Constitutional ED: Denies chills or weight loss Eyes Eyes: Denies change in vision or diplopia ENT ENT ED: Denies ear pain, rhinorrhea or sore throat Cardiovascular Cardiovascular: Reports other Details: Near syncope ; Denies chest pain, orthopnea, palpitations or racing heartbeat Respiratory/Chest Respiratory/Chest: Reports dyspnea; Denies cough or orthopnea Gastrointestinal Gastrointestinal: Denies abdominal pain, diarrhea, nausea or vomiting Genitourinary Genitourinary ED: Denies dysuria, hematuria or urinary frequency Musculoskeletal Musculoskeletal: Reports arthralgias, back pain and myalgias Integumentary Denies abscess or rash Neurologic Neurologic: Denies heada (more content not included)... Normal [facility] Eosinophil percentageOrdered By: ED PROVIDER on 11-04-2024 Eosinophils/100 WBC (Bld) 2.8 % 0-5 [facility] Erythrocyte distribution wid th ratioOrdered By: ED PROVIDER on 11-04-2024 Erythrocyte distribution width (RBC) [Ratio] 11.4 % Low 11.6-14.6 [facility] Erythrocyte distribution wid th standard deviationOrdered By: ED PROVIDER on 11-04-2024 Erythrocyte distribution width (RBC) [Ratio] 34.7 fl Low 35.1-43.9 [facility] Glomerular filtration rate ( GFR) estimation/1.73 sq m using serum, plasma, or whole bOrdered By: Chapo Dukes on 11-04-2024 GFR/1.73 sq M.predicted among non-blacks MDRD (S/P/Bld) [Vol rate/Area] 68 mL/min/{1.73_m2} >60 [facility] Comment on above: mL/min/1.73m2 CKD-EP I Creatinine Equation (2020) [facility] deOrdered By: ED PROVIDER on 11-04-2024 Glucose [Mass/Vol] 264 mg/dL High 74-106 [facility] Comment on above: MANAGEMENT OF PATIEN T CARE PER NURSING PROTOCOL Hematocrit Auto (Bld) [Volum e fraction]Ordered By: ED PROVIDER on 11-04-2024 Hematocrit (Bld) [Volume fraction] 40.0 % 40-54 [facility] Hemoglobin measurementOrdere d By: ED PROVIDER on 11-04-2024 Hemoglobin (Bld) [Mass/Vol] 14.7 g/dL 13.0-16.5 [facility] Immature granulocytes/100 WB C Auto (Bld)Ordered By: ED PROVIDER on 11-04-2024 Immature granulocytes/100 WBC (Bld) 0.400 % 0.0-0.9 [facility] Comment on above: IG% - Immature Granu locytes (promyelocytes, myelocytes and metamyelocytes) > 1% indicates that a LEFT SHIFT is Present. Ketones Test strip Ql (U)Ord ered By: Chapo Dukes on 11-04-2024 Ketones Ql (U) Negative Negative [facility] L499.0042on 11-04-2024 Trop T High Sen 12 ng/L Normal <=22 [facility] Comment on above: Performed By: #### L 499.0042 #### [facility] Laboratory [address] [place], [address] L501.4021on 11-04-2024 Trop T High Sen 14 ng/L Normal <=22 [facility] Comment on above: Performed By: #### L 501.6901, L503.6005, L501.4021 #### [facility] [address] [place], [address] Laboratory - Chemistry and C hemistry - challengeOrdered By: Chapo Dukes on 11-04-2024 AST [Catalytic activity/Vol] 19 U/L <38 [facility] Lactic Acidon 11-04-2024 Lactate [Moles/Vol] 1.4 mmol/L Normal 0.0-2.0 [facility] Comment on above: Order Comment: Y Performed By: #### L 501.6901, L503.6005, L501.4021 #### [facility] [address] [place], [place], [id number] Lactic acid measurementOrder ed By: Chapo Dukes on 11-04-2024 Lactate [Moles/Vol] 1.4 mmol/L 0.0-2.0 [facility] Lipaseon 11-04-2024 Lipase [Catalytic activity/Vol] 8 U/L Low 13-75 [facility] Comment on above: Result Comment: Deborah moralez note: LIPASE revised reference range effective 22. New Lipase methodology. Expected to produce lower values than the previous assay method. NEW Reference Range: 13 - 75 U/L Performed By: #### L 500.2500, L100.0100 #### [facility] [address] [place], [place], [id number] Lipase measurementOrdered By : Chapo Dukes on 11-04-2024 Lipase [Catalytic activity/Vol] 8 U/L Low 13-75 [facility] Comment on above: Please note:LIPASE r evised reference range effective 22. New Lipase methodology. Expected to produce lower values than the previous assay method. NEW Reference Range: 13 - 75 U/L Liver Profileon 11-04-2024 Albumin [Mass/Vol] 4.0 g/dL Normal 3.5-5.0 [facility] Comment on above: Performed By: #### L 500.2500, L100.0100 #### [facility] [address] [place], [address] ALK PHOS 119 U/L Normal 40-129 [facility] Comment on above: Performed By: #### L 500.2500, L100.0100 #### [facility] [address] [place], [address] ALT [Catalytic activity/Vol] 8 U/L Normal <=46 [facility] Comment on above: Performed By: #### L 500.2500, L100.0100 #### [facility] [address] [place], [address] AST [Catalytic activity/Vol] 19 U/L Normal <=37 [facility] Comment on above: Performed By: #### L 500.2500, L100.0100 #### [facility] [address] [place], [address] Bilirubin [Mass/Vol] 1.67 mg/dL High 0.00-1.30 [facility] Comment on above: Performed By: #### L 500.2500, L100.0100 #### [facility] [address] [place], [address] Bilirubin.direct [Mass/Vol] 0.56 mg/dL High 0.00-0.30 [facility] Comment on above: Performed By: #### L 500.2500, L100.0100 #### [facility] [address] [place], [address] Globulin (S) [Mass/Vol] 2.4 g/dL Normal 2.2-4.2 [facility] Comment on above: Performed By: #### L 500.2500, L100.0100 #### [facility] [address] [place], [address] T PROT 6.3 g/dL Normal 5.9-8.4 [facility] Comment on above: Performed By: #### L 500.2500, L100.0100 #### [facility] [address] [place], [address] MCV (mean corpuscular volume ) determinationOrdered By: ED PROVIDER on 11-04-2024 MCV (RBC) [Entitic vol] 84.4 fL 80-94 [facility] Magnesiumon 11-04-2024 Magnesium [Mass/Vol] 1.5 mg/dL Normal 1.5-2.2 [facility] Comment on above: Performed By: #### L 500.2500, L100.0100 #### [facility] [address] [place], [address] Magnesium measurement (mass/ volume)Ordered By: Chapo Dukes on 11-04-2024 Magnesium (Unsp spec) [Mass/Vol] 1.5 mg/dL 1.5-2.2 [facility] Mean corpuscular hemoglobin (MCH) determinationOrdered By: ED PROVIDER on 11-04-2024 MCH (RBC) [Entitic mass] 31.0 pg 27.0-32.0 [facility] Mean corpuscular hemoglobin concentration (MCHC) determinationOrdered By: ED PROVIDER on 11-04-2024 MCHC (RBC) [Mass/Vol] 36.8 g/dL High 32-36 [facility] Mean platelet volume determi nationOrdered By: ED PROVIDER on 11-04-2024 Platelet mean volume (Bld) [Entitic vol] 9.8 fL 6.2-12.0 [facility] Microscopic analysis of urin e for red blood cells (RBC)Ordered By: Chapo Dukes on 11-04-2024 Microscopic analysis of urine for red blood cells (RBC) 0-5 SEEN /hpf 0-5 [facility] Monocyte percentageOrdered B y: ED PROVIDER on 11-04-2024 Monocytes/100 WBC (Bld) 10.1 % High 0-10 [facility] Mucus LM Ql (Urine sed)Order ed By: Chapo Dukes on 11-04-2024 Mucus Ql (Urine sed) 0 SEEN /hpf [facility] Neutrophil percentageOrdered By: ED PROVIDER on 11-04-2024 Neutrophils/100 WBC (Bld) 53.9 % 47-70 [facility] Nitrite Test strip Ql (U)Ord ered By: Chapo Dukes on 11-04-2024 Nitrite Ql (U) Negative Negative [facility] Nucleated red blood cell per centageOrdered By: ED PROVIDER on 11-04-2024 Nucleated RBC/100 WBC (Bld) [Ratio] 0 % 0-5 [facility] Platelet countOrdered By: ED PROVIDER on 11-04-2024 Platelets (Bld) [#/Vol] 362 10*3/uL 150-450 [facility] Potassium measurement (mass/ volume)Ordered By: Chapo Dukes on 11-04-2024 Potassium (Unsp spec) [Mass/Vol] 3.7 mmol/L 3.3-5.1 [facility] Protein Test strip Ql (U)Ord ered By: Chapo Dukes on 11-04-2024 Protein Ql (U) 15 mg/dl High Negative [facility] RBC Auto (Bld) [#/Vol]Ordere d By: ED PROVIDER on 11-04-2024 RBC (Bld) [#/Vol] 4.74 10*6/uL 4.6-6.2 [facility] Serum creatinine measurement (mass/volume)Ordered By: Chapo Dukes on 11-04-2024 Creatinine [Mass/Vol] 1.38 mg/dL High 0.70-1.20 [facility] Serum globulin measurementOr dered By: Chapo Dukes on 11-04-2024 Globulin (S) [Mass/Vol] 2.4 g/dL 2.2-4.2 [facility] Serum glucose measurement (m ass/volume)Ordered By: Chapo Dukes on 11-04-2024 Glucose [Mass/Vol] 240 mg/dL High 70-99 [facility] Serum or plasma alanine zuluaga otransferase (ALT) measurementOrdered By: Chapo Dukes on 11-04-2024 ALT [Catalytic activity/Vol] 8 U/L <47 [facility] Serum or plasma albumin allyn urement (mass/volume)Ordered By: Chapo Dukes on 11-04-2024 Albumin [Mass/Vol] 4.0 g/dL 3.5-5.0 [facility] Serum or plasma alkaline linda sphatase measurementOrdered By: Chapo Dukes on 11-04-2024 ALP [Catalytic activity/Vol] 119 U/L 40-129 [facility] Serum or plasma calcium allyn urement (mass/volume)Ordered By: Chapo Dukes on 11-04-2024 Calcium [Mass/Vol] 10.0 mg/dL 7.6-11.0 [facility] Serum or plasma urea nitroge n measurement (mass/volume)Ordered By: Chapo Dukes on 11-04-2024 Urea nitrogen [Mass/Vol] 18 mg/dL 4-19 [facility] Sodium levelOrdered By: Michel Dukes on 11-04-2024 Sodium [Moles/Vol] 134 mmol/L 133-145 [facility] Squamous epithelial cells de tection in urine sediment by light microscopyOrdered By: Chapo Dukes on 11-04-2024 Epithelial cells.squamous LM Ql (Urine sed) 0-5 SEEN /hpf 0-5 [facility] Total proteinOrdered By: Tex Dukes on 11-04-2024 Protein [Mass/Vol] 6.3 g/dL 5.9-8.4 [facility] Troponin T.cardiac [Mass/vol ume] in Serum or Plasma by High sensitivity methodOrdered By: Chapo Dukes on 11-04-2024 Troponin T.cardiac High sensitivity method [Mass/Vol] 12 ng/L <22 [facility] Troponin T.cardiac High sensitivity method [Mass/Vol] 14 ng/L <22 [facility] Urinalysis, Completeon 11-04 EPI,SQUAMOUS 0-5 SEEN Normal 0-5 [facility] Comment on above: Order Comment: COLLE CTOR TO SPECIFY Performed By: #### L 400.0001 #### [facility] [address] [place], [address] RBC 0-5 SEEN Normal 0-5 [facility] Comment on above: Order Comment: COLLE CTOR TO SPECIFY Performed By: #### L 400.0001 #### [facility] [address] [place], [address] WBC 0-5 SEEN Normal 0-5 [facility] Comment on above: Order Comment: TIP CTOR TO SPECIFY Performed By: #### L 400.0001 #### [facility] [address] [place], [address] BACTERIA 0 SEEN Normal None Seen [facility] Comment on above: Order Comment: TIP CTOR TO SPECIFY Performed By: #### L 400.0001 #### [facility] [address] [place], [address] Mucus Ql (Urine sed) 0 SEEN Normal [facility] Comment on above: Order Comment: COLLE CTOR TO SPECIFY Performed By: #### L 400.0001 #### [facility] [address] [place], [address] Urine clarityOrdered By: Tex Dukes on 11-04-2024 Clarity (U) Clear Clear [facility] Urine color determinationOrd ered By: Chapo Dukes on 11-04-2024 Color (U) Straw Yellow [facility] Urine glucose detectionOrder ed By: Chapo Dukes on 11-04-2024 Glucose Ql (U) 250 mg/dl High Normal [facility] Urine leukocyte esterase det ection by dipstickOrdered By: Chapo Dukes on 11-04-2024 Leukocyte esterase Test strip Ql (U) Negative Negative [facility] Urine pHOrdered By: Chapo umaña on 11-04-2024 pH (U) 6.0 [pH] 5.0 - 8.0 [facility] Urine sediment bacteria coun t by microscopy (number/high power field)Ordered By: Chapo Dukes on 11-04-2024 Bacteria LM.HPF (Urine sed) [#/Area] 0 /[HPF] None Seen [facility] Urine specific gravity measu rementOrdered By: Chapo Dukes on 11-04-2024 Specific gravity (U) [Rel density] 1.010 1.002-1.03 0 [facility] Urine urobilinogen measureme ntOrdered By: Chapo Dukes on 11-04-2024 Urobilinogen Ql (U) Normal mg/dl Normal [facility] White blood cell (WBC) count Ordered By: ED PROVIDER on 11-04-2024 WBC (Bld) [#/Vol] 7.2 10*3/uL 4.4-11.0 [facility] White blood cell countOrdere d By: Chapo Dukes on 11-04-2024 White blood cell count 0-5 SEEN /hpf 0-5 [facility] Absolute lymphocyte countOrd ered By: Alfred Katz on 10-27-2024 Lymphocytes Auto (Unsp spec) [#/Vol] 1.59 10*3/uL 0.83-4.51 [facility] Absolute neutrophil countOrd ered By: Alfred Katz on 10-27-2024 Neutrophils (Bld) [#/Vol] 4.0 10*3/uL 2.0-7.7 [facility] Anion gap in Serum or Plasma Ordered By: Alfred Katz on 10-27-2024 Anion gap [Moles/Vol] 12 mmol/L - [facility] Automated lymphocyte count a s percentage of total leukocytesOrdered By: Alfred Katz on 10-27-2024 Lymphocytes/100 WBC Auto (Unsp spec) 24.3 % 19-41 [facility] BUN/creatinine ratioOrdered By: C[place]quinn Katz on 10-27-2024 Urea nitrogen/Creatinine [Mass ratio] 18.7 mg/mg 10-20 [facility] Basophil percentageOrdered B y: Alfred Katz on 10-27-2024 Basophils/100 WBC (Bld) 1.1 % High 0-1 [facility] Bilirubin, totalOrdered By: Alfred Matthewsmane on 10-27-2024 Bilirubin [Mass/Vol] 1.40 mg/dL High 0.00-1.30 [facility] CBC W/Diff, Automatedon Absolute Lymph 1.59 X10 3/uL Normal 0.83-4.51 [facility] Comment on above: Performed By: #### L 400.0001 #### [facility] [address] [place], [address] Absolute Neut 4.0 X10 3/uL Normal 2.0-7.7 [facility] Comment on above: Performed By: #### L 400.0001 #### [facility] [address] [place], [address] Basophils/100 WBC (Bld) 1.1 % High 0-1 [facility] Comment on above: Performed By: #### L 400.0001 #### [facility] [address] [place], [address] Eosinophils/100 WBC (Bld) 4.1 % Normal 0-5 [facility] Comment on above: Performed By: #### L 400.0001 #### [facility] [address] [place], [address] Erythrocyte distribution width (RBC) [Ratio] 12.1 % Normal 11.6-14.6 [facility] Comment on above: Performed By: #### L 400.0001 #### [facility] [address] [place], [address] Hematocrit (Bld) [Volume fraction] 38.3 % Low 40-54 [facility] Comment on above: Performed By: #### L 400.0001 #### [facility] [address] [place], [address] Hemoglobin (Bld) [Mass/Vol] 13.9 g/dL Normal 13.0-16.5 [facility] Comment on above: Performed By: #### L 400.0001 #### [facility] [address] [place], [address] IG% 0.500 Normal 0.0-0.9 [facility] Comment on above: Result Comment: IG% - Immature Granulocytes (promyelocytes, myelocytes and metamyelocytes) > 1% indicates that a LEFT SHIFT is Present. Performed By: #### L 400.0001 #### [facility] [address] [place], [address] Lymphocytes/100 WBC (Bld) 24.3 % Normal 19-41 [facility] Comment on above: Performed By: #### L 400.0001 #### [facility] [address] [place], [address] MCH (RBC) [Entitic mass] 31.3 pg Normal 27.0-32.0 [facility] Comment on above: Performed By: #### L 400.0001 #### [facility] [address] [place], [address] MCHC (RBC) [Mass/Vol] 36.3 g/dL High 32-36 [facility] Comment on above: Performed By: #### L 400.0001 #### [facility] [address] [place], [address] MCV (RBC) [Entitic vol] 86.3 fL Normal 80-94 [facility] Comment on above: Performed By: #### L 400.0001 #### [facility] [address] [place], [address] Monocytes/100 WBC (Bld) 8.7 % Normal 0-10 [facility] Comment on above: Performed By: #### L 400.0001 #### [facility] [address] [place], [address] Neutrophils/100 WBC (Bld) 61.3 % Normal 47-70 [facility] Comment on above: Performed By: #### L 400.0001 #### [facility] [address] [place], [address] Nucleated RBC (Bld) [#/Vol] 0 10*3/uL Normal 0-5 [facility] Comment on above: Performed By: #### L 400.0001 #### [facility] [address] [place], [address] Platelet mean volume (Bld) [Entitic vol] 10.5 fL Normal 6.2-12.0 [facility] Comment on above: Performed By: #### L 400.0001 #### [facility] [address] [place], [address] Platelets (Bld) [#/Vol] 302 10*3/uL Normal 150-450 [facility] Comment on above: Performed By: #### L 400.0001 #### [facility] [address] [place], [address] RBC (Bld) [#/Vol] 4.44 10*6/uL Low 4.6-6.2 [facility] Comment on above: Performed By: #### L 400.0001 #### [facility] [address] [place], [address] RDW SD 38.5 fl Normal 35.1-43.9 [facility] Comment on above: Performed By: #### L 400.0001 #### [facility] [address] [place], [address] WBC (Bld) [#/Vol] 6.6 10*3/uL Normal 4.4-11.0 [facility] Comment on above: Performed By: #### L 400.0001 #### [facility] [address] [place], [address] Carbon dioxide, total [Moles /volume] in Central venous bloodOrdered By: Alfred Katz on 10-27-2024 CO2 [Moles/Vol] 24.6 mmol/L 21.0-32.0 [facility] Chloride assayOrdered By: Davion Katz on 10-27-2024 Chloride [Moles/Vol] 101 mmol/L 98-108 [facility] Comprehensive Metabolic Prof ilon 10-27-2024 Albumin [Mass/Vol] 4.5 g/dL Normal 3.5-5.0 [facility] Comment on above: Performed By: #### L 400.0001 #### [facility] [address] [place], [place], [phone] Albumin/Globulin [Mass ratio] 1.6 {ratio} Normal 0.9-2.4 [facility] Comment on above: Performed By: #### L 400.0001 #### [facility] [address] [place], [place], [id number] ALK PHOS 134 U/L High 40-129 [facility] Comment on above: Performed By: #### L 400.0001 #### [facility] [address] [place], [place], [id number] ALT [Catalytic activity/Vol] 8 U/L Normal <=46 [facility] Comment on above: Performed By: #### L 400.0001 #### [facility] [address] [place], [place], [phone] AST [Catalytic activity/Vol] 18 U/L Normal <=37 [facility] Comment on above: Performed By: #### L 400.0001 #### [facility] [address] [place], [place], [phone] ([phone] Bilirubin [Mass/Vol] 1.40 mg/dL High 0.00-1.30 [facility] Comment on above: Performed By: #### L 400.0001 #### [facility] [address] [place], [place], [phone] ([phone] BUN/CRE 18.7 RATIO Normal 10-20 [facility] Comment on above: Performed By: #### L 400.0001 #### [facility] [address] [place], [address] Calcium [Mass/Vol] 9.5 mg/dL Normal 7.6-11.0 [facility] Comment on above: Performed By: #### L 400.0001 #### [facility] [address] [place], [address] Chloride [Moles/Vol] 101 mmol/L Normal 98-108 [facility] Comment on above: Performed By: #### L 400.0001 #### [facility] [address] [place], [address] CO2 [Moles/Vol] 24.6 mmol/L Normal 21.0-32.0 [facility] Comment on above: Performed By: #### L 400.0001 #### [facility] [address] [place], [address] Creatinine [Mass/Vol] 1.15 mg/dL Normal 0.70-1.20 [facility] Comment on above: Performed By: #### L 400.0001 #### [facility] [address] [place], [address] GAP 12 Normal 5-15 [facility] Comment on above: Performed By: #### L 400.0001 #### [facility] [address] [place], [address] GFR/1.73 sq M.predicted among non-blacks MDRD (S/P/Bld) [Vol rate/Area] 85 mL/min/{1.73_m2} Normal >60 [facility] Comment on above: Result Comment: mL/m in/1.73m2 CKD-EPI Creatinine Equation (2020) Performed By: #### L 400.0001 #### [facility] [address] [place], [address] Globulin (S) [Mass/Vol] 2.8 g/dL Normal 2.2-4.2 [facility] Comment on above: Performed By: #### L 400.0001 #### [facility] [address] [place], [address] Glucose [Mass/Vol] 186 mg/dL High 70-99 [facility] Comment on above: Performed By: #### L 400.0001 #### [facility] [address] [place], [address] Potassium [Moles/Vol] 4.6 mmol/L Normal 3.3-5.1 [facility] Comment on above: Performed By: #### L 400.0001 #### [facility] [address] [place], [address] Sodium [Moles/Vol] 138 mmol/L Normal 133-145 [facility] Comment on above: Performed By: #### L 400.0001 #### [facility] [address] [place], [address] T PROT 7.3 g/dL Normal 5.9-8.4 [facility] Comment on above: Performed By: #### L 400.0001 #### [facility] [address] [place], [address] Urea nitrogen [Mass/Vol] 22 mg/dL High 4-19 [facility] Comment on above: Performed By: #### L 400.0001 #### [facility] [address] [place], [address] Eosinophil percentageOrdered By: Alfred Katz on 10-27-2024 Eosinophils/100 WBC (Bld) 4.1 % 0-5 [facility] Erythrocyte distribution wid th ratioOrdered By: Alfred Katz on 10-27-2024 Erythrocyte distribution width (RBC) [Ratio] 12.1 % 11.6-14.6 [facility] Erythrocyte distribution wid th standard deviationOrdered By: Alfred Katz on 10-27-2024 Erythrocyte distribution width (RBC) [Ratio] 38.5 fl 35.1-43.9 [facility] Glomerular filtration rate ( GFR) estimation/1.73 sq m using serum, plasma, or whole bOrdered By: Alfred Katz on 10-27-2024 GFR/1.73 sq M.predicted among non-blacks MDRD (S/P/Bld) [Vol rate/Area] 85 mL/min/{1.73_m2} >60 [facility] Comment on above: mL/min/1.73m2 CKD-EP I Creatinine Equation (2020) Hematocrit Auto (Bld) [Volum e fraction]Ordered By: Alfred Katz on 10-27-2024 Hematocrit (Bld) [Volume fraction] 38.3 % Low 40-54 [facility] Hemoglobin measurementOrdere d By: Alfred Katz on 10-27-2024 Hemoglobin (Bld) [Mass/Vol] 13.9 g/dL 13.0-16.5 [facility] Immature granulocytes/100 WB C Auto (Bld)Ordered By: Alfred Katz on 10-27-2024 Immature granulocytes/100 WBC (Bld) 0.500 % 0.0-0.9 [facility] Comment on above: IG% - Immature Granu locytes (promyelocytes, myelocytes and metamyelocytes) > 1% indicates that a LEFT SHIFT is Present. Internal Medicine Office Vis donald 10-27-2024 Internal Medicine Office Visit [facility] [address] [place] [address] [place] [address] OFFICE VISIT Date of Service: 10/27/24 MR#: [id number] Acct: [id number] Name: HANS GONZALEZ Jr. Rep #: [id number] : 1990 Provider: Dr. Alfred brown MD Age/Sex: 34/M Location: [facility] Status: Signed Intake Vital Signs 07/19/24 13:36 10/19/24 10:46 10/27/24 13:38 Height 5 ft 7 in 5 ft 7 in 5 ft 7 in Weight: 137 lb BMI 21.4 BP 128/78 H Blood Pressure Location Lt brachial Position Sitting Respiration 18 Pulse 106 H Pulse Source Monitor Temp 98.5 F Temp Source Temporal Pulse Oximetry (%) 97 Oxygen Delivery Method room air Intake Visit Reasons: 3 M FU Chief Complaint: 3 M FU Is patient in pain?: Yes (BILATERAL LOWER EXTREMITIES, BACK, LEFT ARM) Pain scale (1-10): 7 Allergies No Known Allergies Allergy (Verified 10/27/24 13:33) Medications ???Medication ???Instructions ???Recorded ???Confirmed ???Type flash glucose sensor (FreeStyle #2 ea 02/19/23 10/27/24 Rx Celena 2 Sensor kit) acetaminophen 650 mg 1,300 mg PO ONCE 08/14/23 10/27/24 History tablet,extended release (Tylenol Arthritis Pain) tadalafil 5 mg tablet 5 mg PO DAILY PRN sexual activity 01/09/24 10/27/24 Rx #30 tabs Novolog FlexPen U-100 Insulin 100 20 unit (0.2 mL) subcut TIDCM 07/1610/27/24 Rx unit/mL (3 mL) subcutaneous DIABETES #15 mL (insulin aspart U-100) insulin degludec 100 unit/mL (3 18 unit (0.18 mL) subcut QHS #15 m L 01/22/24 10/27/24 Rx mL) subcutaneous pen (Tresiba FlexTouch U-100 insulin) baclofen 10 mg tablet 10 mg PO BID PRN muscle spasm #30 04/15/24 10/27/24 Rx tabs olanzapine 5 mg tablet (Zyprexa) 5 mg PO QHS #30 tabs 04/19/2401/14 Rx sertraline 50 mg tablet 50 mg PO QDAY #60 tabs 05/13/24 Rx omeprazole 40 mg capsule,delayed 40 mg PO DAILY #90 caps 07/19/24 0 10/27/24 Rx release blood-glucose sensor (FreeStyle #2 ea 10/19/24 10/27/24 Rx Celena 3 Plus Sensor device) loperamide 2 mg tablet (Imodium 2 mg PO Q6H PRN 10/27/24 10/27/24 History A-D) [facility] Medical History URI (upper respiratory infection) Lower extremity weakness Chronic diarrhea Myalgia Myositis Musculoskeletal back pain Elevated blood pressure reading without diagnosis of hypertension Gastroenteritis Type 1 diabetes mellitus Major depression with psychotic features Headache Pain and numbness of upper extremity Vision problems Arthritis Headache, migraine Anxiety and depression Surgical History trigger finger surgery Family History Grandfather Myocardial infarction COPD (chronic obstructive pulmonary disease) Brother Depression suicide attempt Uncle Diabetes Father Diabetes Aunt Diabetes Social History Smoking Status: Current every day smoker tobacco type: cigarettes Tobacco: How many years used: 13 second hand exposure: No quit status: not considering quitting alcohol intake: never substance use type: marijuana what type of physical activity do you participate in: walking, running and weight training frequency: 3-4 times per week HPI HPI Chief Complaint: 3 M FU Details: HANS GONZALEZ, is a 34 M who presents to the office today for follow-up of his chronic conditions. Also has some concerns. He states that over the last 3 weeks, has had increased watery bowel movements. Looks like a mud water. Has 1-3 watery bowel movements daily. Has also noted increased nausea and indigestion. History of chronic diarrhea, follows up with GI and has stool testing ordered however he is yet to complete these. Feels lightheaded, does not stay consistently hydrated. History of anxiety and depression/bipolar depression. He states that for the most part he is doing okay. No concerning side effects to medication. Established with spine surgery due to chronic back pain and left-sided radiculopathy. Has an MRI scheduled. Other chronic medical conditions are stable. ROS Const Constitutional: No body ache, chills, excessive sweating, fatigue, fever(s), frequent falls, headache(s), snoring, weakness, sleep problems or change in appetite Eyes Eyes: No blurry vision, change in vision, floaters, visual disturbances or Light sensitivity ENT ENT: No abnormal hearing, ear or mastoid pain, tinnitus, balance problems, nosebleed/epistaxis, nasal congestion, nasal discharge, headache(s), neck pain or sore throat Resp Respiratory: No cough, excessive phlegm production, pain on inspiration, shortness of breath, snoring or wheezing Cardio Cardiology: No chest pain at rest, chest pain with exertion, exc (more content not included)... Normal [facility] - Chemistry and C hemistry - challengeOrdered By: Alfred Katz on 10-27-2024 AST [Catalytic activity/Vol] 18 U/L <38 [facility] - Hematology and Cell countsOrdered By: Alfred Katz on 10-27-2024 HbA1c (Bld) [Mass fraction] 8.8 % High 4.2-6.3 [facility] MCV (mean corpuscular volume ) determinationOrdered By: Alfred Katz on 10-27-2024 MCV (RBC) [Entitic vol] 86.3 fL 80-94 [facility] Magnesiumon 10-27-2024 Magnesium [Mass/Vol] 1.6 mg/dL Normal 1.5-2.2 [facility] Comment on above: Performed By: #### L 400.0001 #### [facility] [address] [place] [address]. [place], [address] Magnesium measurement (mass/ volume)Ordered By: Alfred Katz on 10-27-2024 Magnesium (Unsp spec) [Mass/Vol] 1.6 mg/dL 1.5-2.2 [facility] Mean corpuscular hemoglobin (MCH) determinationOrdered By: Alfred Katz on 10-27-2024 MCH (RBC) [Entitic mass] 31.3 pg 27.0-32.0 [facility] Mean corpuscular hemoglobin concentration (MCHC) determinationOrdered By: Alfred Katz on 10-27-2024 MCHC (RBC) [Mass/Vol] 36.3 g/dL High 32-36 [facility] Mean platelet volume determi nationOrdered By: Alfred Katz on 10-27-2024 Platelet mean volume (Bld) [Entitic vol] 10.5 fL 6.2-12.0 [facility] Monocyte percentageOrdered B y: Alfred Katz on 10-27-2024 Monocytes/100 WBC (Bld) 8.7 % 0-10 [facility] Neutrophil percentageOrdered By: Alfred Katz on 10-27-2024 Neutrophils/100 WBC (Bld) 61.3 % 47-70 [facility] Nucleated red blood cell per centageOrdered By: Alfred Katz on 10-27-2024 Nucleated RBC/100 WBC (Bld) [Ratio] 0 % 0-5 [facility] Platelet countOrdered By: Davion Katz on 10-27-2024 Platelets (Bld) [#/Vol] 302 10*3/uL 150-450 [facility] Potassium measurement (mass/ volume)Ordered By: Alfred Katz on 10-27-2024 Potassium (Unsp spec) [Mass/Vol] 4.6 mmol/L 3.3-5.1 [facility] RBC Auto (Bld) [#/Vol]Ordere d By: Alfred Katz on 10-27-2024 RBC (Bld) [#/Vol] 4.44 10*6/uL Low 4.6-6.2 [facility] Serum creatinine measurement (mass/volume)Ordered By: Alfred Katz on 10-27-2024 Creatinine [Mass/Vol] 1.15 mg/dL 0.70-1.20 [facility] Serum globulin measurementOr dered By: Alfred Katz on 10-27-2024 Globulin (S) [Mass/Vol] 2.8 g/dL 2.2-4.2 [facility] Serum glucose measurement (m ass/volume)Ordered By: Alfred Katz on 10-27-2024 Glucose [Mass/Vol] 186 mg/dL High 70-99 [facility] Serum or plasma alanine zuluaga otransferase (ALT) measurementOrdered By: Alfred Katz on 10-27-2024 ALT [Catalytic activity/Vol] 8 U/L <47 [facility] Serum or plasma albumin allyn urement (mass/volume)Ordered By: Alfred Katz on 10-27-2024 Albumin [Mass/Vol] 4.5 g/dL 3.5-5.0 [facility] Serum or plasma albumin/glob ulin mass ratioOrdered By: Alfred Katz on 10-27-2024 Albumin/Globulin [Mass ratio] 1.6 {ratio} 0.9-2.4 [facility] Serum or plasma alkaline linda sphatase measurementOrdered By: Alfred Katz on 10-27-2024 ALP [Catalytic activity/Vol] 134 U/L High 40-129 [facility] Serum or plasma calcium allyn urement (mass/volume)Ordered By: Alfred Katz on 10-27-2024 Calcium [Mass/Vol] 9.5 mg/dL 7.6-11.0 [facility] Serum or plasma urea nitroge n measurement (mass/volume)Ordered By: Alfred Katz on 10-27-2024 Urea nitrogen [Mass/Vol] 22 mg/dL High 4-19 [facility] Sodium levelOrdered By: Crystal Katz on 10-27-2024 Sodium [Moles/Vol] 138 mmol/L 133-145 [facility] T4 Free Directon 10-27-2024 T4 FREE DIRECT 1.00 ng/dL Normal 0.76-1.46 [facility] Comment on above: Performed By: #### L 400.0001 #### [facility] [address] [place], [address] T4 freeOrdered By: Alfred Katz on 10-27-2024 Free T4 [Mass/Vol] 1.00 ng/dL 0.76-1.46 [facility] TSH DL <= 0.005 mIU/L QnOrde red By: Alfred Katz on 10-27-2024 TSH Qn 2.130 uIU/mL 0.300-4.20 0 [facility] Thyroid Stim Hormone (TSH)on 10-27-2024 TSH 2.130 uIU/mL Normal 0.300-4.20 0 [facility] Comment on above: Performed By: #### L 400.0001 #### [facility] [address] [place], [place], [id number] Total proteinOrdered By: Austen Katz on 10-27-2024 Protein [Mass/Vol] 7.3 g/dL 5.9-8.4 [facility] White blood cell (WBC) count Ordered By: Alfred Katz on 10-27-2024 WBC (Bld) [#/Vol] 6.6 10*3/uL 4.4-11.0 [facility] L/S Spine Min 4 Viewson 09-22 L/S Spine Min 4 Views [facility] [address] [place] [address] L/S Spine Min 4 Views MR#: [id number] Acct: [id number] Name: HANS GONZALEZ Jr. Rep #: [id number] : 1990 M 34 From: Doug Bass MD PCP: Dr. Alfred Katz MD Status: DEP AMB Study: L/S Spine Min 4 Views Date of Exam: 10/19/24 Exam# [id number] Ordering Dr: Criss Alonso PROCEDURE: L/S SPINE MIN 4 VIEWS 10/19/2024 REASON FOR EXAM: PAIN TECHNIQUE: Four views of the lumbar spine. FINDINGS: Vertebrae: No acute fracture Discs: Disc space heights are preserved. Alignment: No subluxation. No subluxation of the flexion extension views to suggest instability. Other: RAD/L/S Spine Min 4 Views IMPRESSION: Normal lumbar spine. Reading Location: [id number] CC: BÁRBARA Bennett; Dr. 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 Rep #: [id number] : 1990 Provider: BÁRBARA Bennett Age/Sex: 34/M Location: [facility] [place] Status: Signed Intake Vital Signs 09/09/24 14:55 10/19/24 10:46 Height 5 ft 7 in 5 ft 7 in Weight: 141 lb 137 lb 6 oz BMI 22.1 21.5 BP 148/90 H Blood Pressure Location Lt brachial Position Sitting Respiration 18 Pulse 90 Pulse Source Monitor Temp 98.2 F Temp Source Temporal Pulse Oximetry (%) 99 Oxygen Delivery Method room air Intake Visit Reasons: LUMBAR SPINE Accompanied by: Self Is patient in pain?: Yes Allergies No Known Allergies Allergy (Verified 10/19/24 10:47) Medications ???Medication ???Instructions ???Recorded ???Confirmed ???Type flash glucose sensor (FreeStyle #2 ea 02/19/23 10/19/24 Rx Celena 2 Sensor kit) acetaminophen 650 mg 1,300 mg PO ONCE 08/14/23 10/19/24 History tablet,extended release (Tylenol Arthritis Pain) tadalafil 5 mg tablet 5 mg PO DAILY PRN sexual activity 01/09/24 10/19/24 Rx #30 tabs Novolog FlexPen U-100 Insulin 100 20 unit (0.2 mL) subcut TIDCM 07/1610/19/24 Rx unit/mL (3 mL) subcutaneous DIABETES #15 mL (insulin aspart U-100) insulin degludec 100 unit/mL (3 18 unit (0.18 mL) subcut QHS #15 m L 01/22/24 10/19/24 Rx mL) subcutaneous pen (Tresiba FlexTouch U-100 insulin) baclofen 10 mg tablet 10 mg PO BID PRN muscle spasm #30 04/15/24 10/19/24 Rx tabs olanzapine 5 mg tablet (Zyprexa) 5 mg PO QHS #30 tabs 04/19/2409/22 Rx sertraline 50 mg tablet 50 mg PO QDAY #60 tabs 05/13/24 Rx omeprazole 40 mg capsule,delayed 40 mg PO DAILY #90 caps 07/19/24 0 10/19/24 Rx release blood-glucose sensor (FreeStyle #2 ea 10/19/24 Rx Celena 3 Plus Sensor device) [facility] Medical History URI (upper respiratory infection) Lower extremity weakness Chronic diarrhea Myalgia Myositis Musculoskeletal back pain Elevated blood pressure reading without diagnosis of hypertension Gastroenteritis Type 1 diabetes mellitus Major depression with psychotic features Headache Pain and numbness of upper extremity Vision problems Arthritis Headache, migraine Anxiety and depression Surgical History trigger finger surgery Family History Grandfather Myocardial infarction COPD (chronic obstructive pulmonary disease) Brother Depression suicide attempt Uncle Diabetes Father Diabetes Aunt Diabetes Social History Smoking Status: Current every day smoker tobacco type: cigarettes Tobacco: How many years used: 13 second hand exposure: No quit status: not considering quitting alcohol intake: never substance use type: marijuana what type of physical activity do you participate in: walking, running and weight training frequency: 3-4 times per week HPI LUMBAR SPINE Details: This documentation accurately reflects the service provided and the decisions made by me, BÁRBARA Bennett 10/19/24 1044. Part of today???s visit was documented by Gilda SIMON, acting as scribe. HANS GONZALEZ is a 34 year old M here today for low back pain. He states that he has had intermittent back pain but starting in June he has been having more consistent pain that has progressively gotten worse over time. He does gets pain that radiates down both legs but is worse in the left. He does ambulate with an antalgic gait due to the pain. The left leg pain radiates down the anterolateral leg. Says that he also will get calf pain bilaterally and tingling into the feet. He does occasionally get numbness/tingling in his feet bilaterally. He does have some weakness in his left leg which causes that leg to sometimes give out on him. Says that walking and standing increases his pain. He denies any imaging of his lumbar spine. He did do physical therapy about a month ago for 4 weeks which did help lessen his lower back pain but increased his leg pain. He was only able to do 4 weeks before insurance cut him off. He was going 2x per week for 4 weeks. He denies injections. No back surgeries, type 1 diabetes takes insulin, heart attack at 19, does not see cardiology, no blood thinners. Patient says he has memory issues and has a difficult time remembering back to when his pain started or what his symptoms were, recently has pain that makes it difficult to do his job. Ortho Exam General General: Yes no acute distress Neurologic: Yes alert and Yes oriented x3 Sp (more content not included)... Normal [facility] Internal Medicine Office Vis donald 09-09-2024 Internal Medicine Office Visit [facility] [address] [place] [place] [address] OFFICE VISIT Date of Service: 09/09/24 MR#: [id number] Acct: [id number] Name: HANS GONZALEZ JrSoco Rep #: [id number] : 1990 Provider: BÁRBARA Lee Age/Sex: 34/M Location: [facility] Status: Signed Intake Vital Signs 07/29/24 09:44 09/09/24 14:55 Height 5 ft 7 in 5 ft 7 in Weight: 141 lb 141 lb BMI 22.1 22.1 BP 127/86 H 148/90 H Blood Pressure Location Lt brachial Lt brachial Position Sitting Sitting Respiration 18 Pulse 84 90 Pulse Source Monitor Monitor Temp 98.2 F Temp Source Temporal Pulse Oximetry (%) 99 99 Oxygen Delivery Method room air room air Intake Visit Reasons: ACUTE PAIN IN LOWER BACK MOVING DOWN LEGS Chief Complaint: ACUTE PAIN IN LOWER BACK MOVING DOWN LEGS Is patient in pain?: Yes (PAIN OF 6 IN LEFT LEG AND BILAT CALF MUSCLES ) Allergies No Known Allergies Allergy (Verified 09/09/24 14:54) Medications ???Medication ???Instructions ???Recorded ???Confirmed ???Type flash glucose scanning reader #1 ea 08/18/20 09/09/24 Rx (FreeStyle Celena 2 Fowler) flash glucose sensor (FreeStyle #2 ea 02/19/23 09/09/24 Rx Celena 2 Sensor kit) acetaminophen 650 mg 1,300 mg PO ONCE 08/14/23 09/09/24 History tablet,extended release (Tylenol Arthritis Pain) tadalafil 5 mg tablet 5 mg PO DAILY PRN sexual activity 01/09/24 09/09/24 Rx #30 tabs Novolog FlexPen U-100 Insulin 100 20 unit (0.2 mL) subcut TIDCM 07/1609/09/24 Rx unit/mL (3 mL) subcutaneous DIABETES #15 mL (insulin aspart U-100) blood-glucose sensor (FreeStyle #2 ea 01/22/24 09/09/24 Rx Celena 3 Sensor device) insulin degludec 100 unit/mL (3 18 unit (0.18 mL) subcut QHS #15 m L 01/22/24 09/09/24 Rx mL) subcutaneous pen (Tresiba FlexTouch U-100 insulin) baclofen 10 mg tablet 10 mg PO BID PRN muscle spasm #30 04/15/24 09/09/24 Rx tabs olanzapine 5 mg tablet (Zyprexa) 5 mg PO QHS #30 tabs 04/19/2408/22 Rx sertraline 50 mg tablet 50 mg PO QDAY #60 tabs 05/13/24 Rx omeprazole 40 mg capsule,delayed 40 mg PO DAILY #90 caps 07/19/24 0 09/09/24 Rx release Have you fallen in the past year?: Yes (X3) Nurse's Note: pt reports that he has back pain that has spread to his left leg and bilateral calf muscles pt has c/o of staying up at night as the discomfort makes his legs feel restless. pt states that he completed PT and it helped his back but has not helped the leg pain. [facility] Medical History URI (upper respiratory infection) Lower extremity weakness Chronic diarrhea Myalgia Myositis Musculoskeletal back pain Elevated blood pressure reading without diagnosis of hypertension Gastroenteritis Type 1 diabetes mellitus Major depression with psychotic features Headache Pain and numbness of upper extremity Vision problems Arthritis Headache, migraine Anxiety and depression Surgical History trigger finger surgery Family History Grandfather Myocardial infarction COPD (chronic obstructive pulmonary disease) Brother Depression suicide attempt Uncle Diabetes Father Diabetes Aunt Diabetes Social History Smoking Status: Current every day smoker tobacco type: cigarettes Tobacco: How many years used: 13 second hand exposure: No quit status: not considering quitting alcohol intake: never substance use type: marijuana what type of physical activity do you participate in: walking, running and weight training frequency: 3-4 times per week HPI HPI Chief Complaint: ACUTE PAIN IN LOWER BACK MOVING DOWN LEGS Details: HANS GONZALEZ, is a 34 M who presents to the office today for f/u on his back pain / leg pains. Patient states that he started to have back pains and pains in the legs for several months now (previous visits show patient complained of back pains last December). The back pains were located in the lower back mainly in the middle maybe slightly more on the left. In terms of the leg pains, he states that initially he was having pains primarily in the left but then the right started as well. PAins start on the anterolateral aspect of the thigh and radiated down the side of the leg into the calves. (posterolateral). He states that he was having periodic feelings of the left leg giving out but denies really any generalized / persistent weakness. He states that he had not had any previous back pains / problems and denies any significant back injuries. He was sent to physical therapy which he completed. He was going to PT twice weekly for 6 weeks. He states that he did see improvement in (more content not included)... Normal [facility] PT D/C Summary (1)on 025 PT D/C Summary (1) [facility] Physical Therapy [facility] [address] [place] [address] [address] [place] [address] / REHABILITATION SERVICES DISCHARGE SUMMARY MR#: [id number] Acct: [id number] Name: HANS GONZALEZ Jr. Rep #: [id number] : 1990 34 From: Steve Jauregui PT, ATC Referring Dr.: Dr. Alfred Katz MD Status: REG R Insurance: [facility] SELF PAY INSURANCE Discharge Summary D/C summary: It has been my pleasure to treat HANS GONZALEZ referred by Dr. Alfred Katz MD, with the diagnosis of LBP, LE weakness for a total of 6 visit(s). Discharge Date: Please see the following information for a summary of their discharge status. Subjective Subjective: My LBP has improved. I still have pain in my legs Pain LBP: Pain Intensity (Out of 10): 6 BLE: Pain Intensity (Out of 10): 3 Overall Improvement % Improvement: 50 Objective Objective/Function: LBP is 3/10, leg pain 6/10. No sleep difficulty secondary to pain at this time Pt reports his LE radiculopathy is actually progressed beyond the knee region at this time to the foot. Pt is I with HEP B legs are still weak and progressing to be weaker Goals Goal 1:: Decrease LBP x 50% to aid with sleep Goal Progress: Goal Met Goal 2:: Decrease frequency and intensity of B LE radiculopathy x 50% to aid with ambulation Goal Progress: Not Progressing Goal 3:: I with HEP Goal Progress: Goal Met Goal 4:: strength of LE's will be equal bilaterally. Goal Progress: Not Progressing Plan Plan: Discontinue at this time, return to doctor secondary to increase in LE sx's D/C Information d/c sentence: If there are questions or concerns regarding this patient's physical therapy, please feel free to call me at [phone]. Thank you for the referral of this patient. Sincerely, Steve Jauregui, PT, ATC Balance/Gait/Functional tests Balance/Special Test Scores Oswestry Low Back Score: 9 Lower Extremity Functional Score: 75 Improvement % Improvement: 50 08/25/24 1448 CC: Dr. Alfred Katz MD [facility] Signed Normal [facility] Gastroenterology Visit Repor ton 08-03-2024 Gastroenterology Visit Report [facility] [address] [place] [address] OFFICE VISIT Date of Service: 08/03/24 MR#: [id number] Acct: [id number] Name: HANS GONZALEZ JrSoco Rep #: [id number] : 1990 Provider: BÁRBARA Glez Age/Sex: 34/M Location: [facility] [place] Status: Signed Intake Vital Signs 07/19/24 13:36 07/29/24 09:44 Height 5 ft 7 in 5 ft 7 in Weight: 137 lb 141 lb BMI 21.4 22.1 BP 118/60 127/86 H Blood Pressure Location Lt brachial Lt brachial Position Sitting Sitting Respiration 16 Pulse 86 84 Pulse Source Monitor Monitor Temp 97.5 F L Temp Source Temporal Pulse Oximetry (%) 99 99 Oxygen Delivery Method room air room air Intake Visit Reasons: Colitis Chief Complaint: diarrhea Curtain Worker Required: No Allergies No Known Allergies Allergy (Verified 07/29/24 09:47) Medications ???Medication ???Instructions ???Recorded ???Confirmed ???Type flash glucose scanning reader #1 ea 08/18/20 07/19/24 Rx (FreeStyle Celena 2 Fowler) flash glucose sensor (FreeStyle #2 ea 02/19/23 07/19/24 Rx Celena 2 Sensor kit) acetaminophen 650 mg 1,300 mg PO ONCE 08/14/23 07/29/24 History tablet,extended release (Tylenol Arthritis Pain) tadalafil 5 mg tablet 5 mg PO DAILY PRN sexual activity 01/09/24 07/29/24 Rx #30 tabs Novolog FlexPen U-100 Insulin 100 20 unit (0.2 mL) subcut TIDCM 07/1607/29/24 Rx unit/mL (3 mL) subcutaneous DIABETES #15 mL (insulin aspart U-100) blood-glucose sensor (FreeStyle #2 ea 01/22/24 07/19/24 Rx Celena 3 Sensor device) insulin degludec 100 unit/mL (3 18 unit (0.18 mL) subcut QHS #15 m L 01/22/24 07/29/24 Rx mL) subcutaneous pen (Tresiba FlexTouch U-100 insulin) baclofen 10 mg tablet 10 mg PO BID PRN muscle spasm #30 04/15/24 07/29/24 Rx tabs olanzapine 5 mg tablet (Zyprexa) 5 mg PO QHS #30 tabs 04/19/2412/15 Rx sertraline 50 mg tablet 50 mg PO QDAY #60 tabs 05/13/24 Rx omeprazole 40 mg capsule,delayed 40 mg PO DAILY #90 caps 07/19/24 0 08/03/24 Rx release Have you fallen in the past year?: Yes Nurse's Note: OV 08.03.24 Pt here to establish care with [facility]. Pt reports diarrhea, gas and bloating. [facility] Medical History URI (upper respiratory infection) Lower extremity weakness Chronic diarrhea Myalgia Myositis Musculoskeletal back pain Elevated blood pressure reading without diagnosis of hypertension Gastroenteritis Type 1 diabetes mellitus Major depression with psychotic features Headache Pain and numbness of upper extremity Vision problems Arthritis Headache, migraine Anxiety and depression Surgical History trigger finger surgery Family History Grandfather Myocardial infarction COPD (chronic obstructive pulmonary disease) Brother Depression suicide attempt Uncle Diabetes Father Diabetes Aunt Diabetes Social History Smoking Status: Current every day smoker tobacco type: cigarettes Tobacco: How many years used: 13 second hand exposure: No quit status: not considering quitting alcohol intake: never substance use type: marijuana what type of physical activity do you participate in: walking, running and weight training frequency: 3-4 times per week HPI HPI Chief Complaint: diarrhea Details: HANS GONZALEZ, is a 34 M who presents to the office today for establishment with [facility]. Pt has had episodes of loose stool 2-3 times per week for years now. He notices after eating specific foods like soup and chicken. He endorses occasional nocturnal symptoms. He takes OTC anti diarrheals as needed. He also has complaints of burning chest pain and excessive eructation. He is on daily omeprazole 40 mg daily which helps keep it under control. He did undergo colonoscopy and EGD about one year ago but we do not have these records. He says that the scopes were without abnormality. ROS Const Constitutional: Positive for fatigue and headache(s); No fever(s) or weight change ENT ENT: Positive for headache(s); No difficulty swallowing Cardio Cardiology: Positive for leg pain with exertion Gastro GI: Positive for bloating, change in bowel habits, diarrhea, excessive flatus and nausea/dyspepsia; No abdominal pain, belching, change in stool character, coffee ground emesis, constipation, cramping, heartburn, difficulty swallowing, feeling full early, incontinent of stools, Vomiting blood/hematemesis, Blood in stool, loose stools, Black,tarry stools, pain with swallowing, vomiting or other Musc Musculoskeletal: Positive for joint pain, back pain, muscle weakness, (more content not included)... Normal [facility] Endocrinology Visit Reporton 07-29-2024 Endocrinology Visit Report [facility] [address] [place] [address] OFFICE VISIT Date of Service: 07/29/24 MR#: [id number] Acct: [id number] Name: HANS GONZALEZ Jr. Rep #: [id number] : 1990 Provider: SHAYE ames Age/Sex: 34/M Location: [facility] Status: Signed Intake Vital Signs 01/22/24 14:58 07/19/24 13:36 07/29/24 09:44 Height 5 ft 7 in 5 ft 7 in 5 ft 7 in Weight: 141 lb BMI 22.1 BP 127/86 H Blood Pressure Location Lt brachial Position Sitting Pulse 84 Pulse Source Monitor Pulse Oximetry (%) 99 Oxygen Delivery Method room air Intake Visit Reasons: 6 M FU Chief Complaint: f/u diabetes Is patient in pain?: No Allergies No Known Allergies Allergy (Verified 07/29/24 09:47) Medications ???Medication ???Instructions ???Recorded ???Confirmed ???Type flash glucose scanning reader #1 ea 08/18/20 07/19/24 Rx (FreeStyle Celena 2 Fowler) flash glucose sensor (FreeStyle #2 ea 02/19/23 07/19/24 Rx Celena 2 Sensor kit) acetaminophen 650 mg 1,300 mg PO ONCE 08/14/23 07/29/24 History tablet,extended release (Tylenol Arthritis Pain) tadalafil 5 mg tablet 5 mg PO DAILY PRN sexual activity 01/09/24 07/29/24 Rx #30 tabs Novolog FlexPen U-100 Insulin 100 20 unit (0.2 mL) subcut TIDCM 07/1607/29/24 Rx unit/mL (3 mL) subcutaneous DIABETES #15 mL (insulin aspart U-100) blood-glucose sensor (FreeStyle #2 ea 01/22/24 07/19/24 Rx Celena 3 Sensor device) insulin degludec 100 unit/mL (3 18 unit (0.18 mL) subcut QHS #15 m L 01/22/24 07/29/24 Rx mL) subcutaneous pen (Tresiba FlexTouch U-100 insulin) baclofen 10 mg tablet 10 mg PO BID PRN muscle spasm #30 04/15/24 07/29/24 Rx tabs olanzapine 5 mg tablet (Zyprexa) 5 mg PO QHS #30 tabs 04/19/2412/15 Rx sertraline 50 mg tablet 50 mg PO QDAY #60 tabs 05/13/24 Rx omeprazole 40 mg capsule,delayed 40 mg PO DAILY #90 caps 07/19/24 0 07/29/24 Rx release PFSH Medical History URI (upper respiratory infection) Lower extremity weakness Chronic diarrhea Myalgia Myositis Musculoskeletal back pain Elevated blood pressure reading without diagnosis of hypertension Gastroenteritis Type 1 diabetes mellitus Major depression with psychotic features Headache Pain and numbness of upper extremity Vision problems Arthritis Headache, migraine Anxiety and depression Surgical History trigger finger surgery Family History Grandfather Myocardial infarction COPD (chronic obstructive pulmonary disease) Brother Depression suicide attempt Uncle Diabetes Father Diabetes Aunt Diabetes Social History Smoking Status: Current some day smoker tobacco type: cigarettes Tobacco: How many years used: 13 second hand exposure: No alcohol intake: never substance use type: marijuana what type of physical activity do you participate in: walking, running and weight training frequency: 3-4 times per week HPI HPI Chief Complaint: f/u diabetes Details: HANS GONZALEZ, is a 34 M who presents to the office today for evaluation and management of diabetes. A1C today is 8.2%, improved from 01/22/24 at 8.7%. Weight is stable. Currently taking Tresiba 18 u once daily and Novolog 5-6 u TIDCM, 1:50 CF. CGM tracings reviewed- he is having lows during sleeping hours and mida day. He is having rebound elevations and post meal elevations. Denies any significant episode of hypoglycemia that has required assistance from others. Hx of vitamin D deficiency. He has not been taking any supplement. Labs are up to date. He has gone to PT x1 for weakness to left side. Reports workup so far concerning the matter has been unremarkable. Denies any acute concerns. ROS Const Constitutional: Positive for weakness; No fatigue or weight change ENT ENT: No dizziness/vertigo Cardio Cardiology: No chest pain at rest, chest pain with exertion, shortness of breath or palpitations Neuro Neurology: Positive for weakness Skin Skin: No wounds Endo Endocrine: No fatigue or weight change Exam Const General: cooperative, healthy appearing, comfortable and no acute distress Nutritional Appearance: average body habitus Orientation: alert, awake and oriented x3 HENMT Head: normal to inspection Ears: hearing grossly normal bilaterally Nose: external nose normal Face and sinus: normal facial exam Eyes General: appearance normal, both eyes and all related structures Alignment and Position: alignment normal Sclera: sclerae normal Neck Neck: normal vi (more content not included)... Normal [facility] Inital Evaluation (1) - PTon 07-29-2024 Inital Evaluation (1) - PT [facility] Physical Therapy [facility] [address] [place] [address] [address] [place] [address] / REHABILITATION SERVICES INITIAL EVALUATION MR#: [id number] Acct: [id number] Name: GRETCHENJO CASTANONGUILHERME HUI Jr. Rep #: [id number] : 1990 34 From: Steve Jauregui PT, ATC Referring Dr.: Dr. Alfred Katz MD Status: REG R Insurance: [facility] SELF PAY INSURANCE Patient's Visit Information Visit Information Visit Information: HANSGUILHERME GONZALEZ Jr. is a 34 year old M referred to Physical Therapy by Dr. Alfred Katz MD with a diagnosis of LBP, LE weakness. Date of Evaluation: 07/28/24 Physical Therapist: Steve Jauregui, PT, ATC Visit Plan Frequency: 2x /Week Duration: 4-6 Weeks Plan: Postural edu, REIL, core strengthening, B LE strengthening, and HEP Subjective Subjective: Pt reports he was sent here today because he saw his doctor and they discovered he has B LE weakness. Pt notes they blame it on his diabetes and the lack of his control over his blood sugar. Pt reports he also has LBP that radiates into his L LE. Pt notes this will cause his L LE to give out on him occasionally secondary to the weakness. Pt reports he also has poor vision which even more so complicates his mobility. Pt reports he works for the [employer] here in town which requires him to perform a lot of walking throughout the day. Pt reports his knee gives out on him on occasion, but he has never fallen as a result. L knee will lock up on him occasionally. Pt reports sleep difficulty at this time secondary to pain. Pt reports standing makes him feel better than sitting. 3/10 pain at rest, 7/10 pain at worst Pain LBP: Pain Intensity (Out of 10): 3 Pain Intensity Range: 7 Objective Objective: Neuro: B LE sensation is WNL to light touch MMT: R hip flex= 25, abd= 33, ADD= 45, knee flex= 33, knee ext= 17; L hip flex= 23, abd= 33, ADD= 53, knee flex= 33, knee ext= 33 #F ROM: Pt is moderately limited in flex and ext of his L/S. Flexion peripheralizes sx's into B feet Repeated movements: Prone prop progression followed by REIL 10x2 Balance/Special Test Scores Lower Extremity Functional Score: 75 Goals Goal 1:: Decrease LBP x 50% to aid with sleep Goal Time Frame: 4-6 Weeks Goal 2:: Decrease frequency and intensity of B LE radiculopathy x 50% to aid with ambulation Goal Time Frame: 4-6 Weeks Goal 3:: I with HEP Goal Time Frame: 4-6 Weeks Goal 4:: strength of LE's will be equal bilaterally. Goal Time Frame: 4-6 Weeks Rehabilitation Potential Physical Therapy Diagnosis: Pt has LBP, B LE radiculopathy, and LE weakness secondary to L/S disc derangement Rehabilitation Potential: Good Anticipated Interventions Patient/Client Instruction: Educate patient on: Condition and Plan of Care For the Purpose of:: To improve self management Therapeutic Exercise to Include: Strength training, Endurance training, Balance training, Body mechanics, Postural training, Gait and locomotor training, Dynamic Lumbar Stabilization and Rai Exercises For the Purpose of:: To decrease pain, To increase ROM and To improve muscle performance and motor function Text: Thank you for the opportunity to evaluate your patient. For Medicare and Medicare HMO plans, please review the plan of care and approve it. It will need to be FAXED BACK to us at [phone] for Medicare purposes. For Medicare only, by signing this I certify the plan of care. Please let me know if there are questions or concerns regarding this plan of care. Physician Signature: Date: 07/29/24 1102 CC: Dr. Alfred Katz MD [facility] Signed Normal [facility] Laboratory - Hematology and Cell countsOrdered By: Sarahi Maier on 07-29-2024 HbA1c (Bld) [Mass fraction] 8.2 % High 4.2-6.3 [facility] Internal Medicine Office Vis iton 07-19-2024 Internal Medicine Office Visit [facility] [address] [place] [address] [address] [place] [address] OFFICE VISIT Date of Service: 07/19/24 MR#: [id number] Acct: [id number] Name: HANS GONZALEZ Rep #: [id number] : 1990 Provider: Dr. Alfred brown MD Age/Sex: 34/M Location: [facility] Status: Signed Intake Vital Signs 04/15/24 15:10 07/19/24 13:36 Height 5 ft 7 in 5 ft 7 in Weight: 137 lb BMI 21.4 BP 118/60 Blood Pressure Location Lt brachial Position Sitting Respiration 16 Pulse 86 Pulse Source Monitor Temp 97.5 F L Temp Source Temporal Pulse Oximetry (%) 99 Oxygen Delivery Method room air Intake Visit Reasons: 3 m fu Chief Complaint: Follow-up chronic conditions Curtain Worker Required: No Accompanied by: Self Allergies No Known Allergies Allergy (Verified 07/19/24 13:32) Medications ???Medication ???Instructions ???Recorded ???Confirmed ???Type flash glucose scanning reader #1 ea 08/18/20 07/19/24 Rx (FreeStyle Celena 2 Fowler) flash glucose sensor (FreeStyle #2 ea 02/19/23 07/19/24 Rx Celena 2 Sensor kit) acetaminophen 650 mg 1,300 mg PO ONCE 08/14/23 07/19/24 History tablet,extended release (Tylenol Arthritis Pain) tadalafil 5 mg tablet 5 mg PO DAILY PRN sexual activity 01/09/24 07/19/24 Rx #30 tabs Novolog FlexPen U-100 Insulin 100 20 unit (0.2 mL) subcut TIDCM 01/22/24 07/19/24 Rx unit/mL (3 mL) subcutaneous DIABETES #15 mL (insulin aspart U-100) blood-glucose sensor (FreeStyle #2 ea 01/22/24 07/19/24 Rx Celena 3 Sensor device) insulin degludec 100 unit/mL (3 18 unit (0.18 mL) subcut QHS #15 mL 01/22/24 07/19/24 Rx mL) subcutaneous pen (Tresiba FlexTouch U-100 insulin) baclofen 10 mg tablet 10 mg PO BID PRN muscle spasm #30 04/15/24 07/19/24 Rx tabs olanzapine 5 mg tablet (Zyprexa) 5 mg PO QHS #30 tabs 04/19/24 07/19/24 Rx sertraline 50 mg tablet 50 mg PO QDAY #60 tabs 05/13/24 07/19/24 Rx omeprazole 40 mg capsule,delayed 40 mg PO DAILY #90 caps 07/19/24 07/19/24 [facility] release [facility] Medical History (Updated 07/19/24 @ 17:[address] Alfred Katz MD) URI (upper respiratory infection) Lower extremity weakness Chronic diarrhea Myalgia Myositis Musculoskeletal back pain Elevated blood pressure reading without diagnosis of hypertension Gastroenteritis Type 1 diabetes mellitus Major depression with psychotic features Headache Pain and numbness of upper extremity Vision problems Arthritis Headache, migraine Anxiety and depression Surgical History trigger finger surgery Family History Grandfather Myocardial infarction COPD (chronic obstructive pulmonary disease) Brother Depression suicide attempt Uncle Diabetes Father Diabetes Aunt Diabetes Social History Smoking Status: Current some day smoker tobacco type: cigarettes Tobacco: How many years used: 13 second hand exposure: No alcohol intake: never substance use type: marijuana what type of physical activity do you participate in: walking, running and weight training frequency: 3-4 times per week HPI HPI Chief Complaint: Follow-up chronic conditions Details: HANS GONZALEZ, is a 34 M who presents to the office today for follow-up of his chronic conditions. Also has some concerns. He states that he was recently at an urgent care due to respiratory symptoms. Treated with antibiotics. Cough is improving. No chest tightness. Still reports fatigue. Chills or fever. He reports ongoing extremity pain. He states that his left leg occasionally gives out. No falls, just ying. No change in bowel or bladder habit. Pain is predominantly on his left side however, on examination, had bilateral pain and cramping. At his last visit, there was concern for possible myositis/myalgia however, workup with no significant concerns for elevated inflammatory marker. He also reports diarrhea. He states that this has been present for months/a while and it is getting worse. Has to take [id number] Imodium but even with that, his stool is still not well-formed. Abdominal pain, bloating and burping also reported. Other chronic medical conditions are stable. ROS Const Constitutional: Positive for fatigue and decreased energy; No body ache, chills, excessive sweating, fever(s), frequent falls, headache(s), snoring, weakness, weight change or change in appetite Eyes Eyes: No blurry vision, change in vision, bulging eyes, floaters, visual disturbances, eye pain or Light sensitivity ENT ENT: No abnormal hearing, ear or mastoid pain, tinnitus, balance problems, nosebleed/epistaxis, nasal congestion, headache(s), neck pain or sore throat Resp Respiratory (more content not included)... [facility] ) HANS GONZALEZ ([id number]) 1990 M Date Time Provider Department 12/17/23 5:00 PM [facility] your visit today, we recorded the following information about you: Temperature Pulse Respiration Blood pressure 97.5 degrees 98/minute 18/minute 133/89 Weight 64.7 kg Jose Damon, DENISSE 12/17/2023 5:56 PM Signed This note was created using [employer]. Subjective Hans Gonzalez is a 33 year old male. HPI Patient presents with a chief complaint of left-sided neck pain over the past 3 days. He had noticed some sores on his scalp that were painful. He does have pain when trying to move his neck from [id number] and feels like his muscle is tight on the back of his left neck. No fever. He denies history of MRSA. He denies any injury to his neck. He states he just woke up with this and thought he slept wrong. No OTC meds used. No pain radiating to his arms. No weakness numbness or tingling in his arms. Review of Systems Constitutional: Negative. HENT: Negative. Respiratory: Negative. Cardiovascular: Negative. Gastrointestinal: Negative. Musculoskeletal: Positive for neck pain. Skin: Positive for rash and wound. All other systems reviewed and are negative. PAST MEDICAL HISTORY Diagnosis Date Altered mental status Anxiety and depression Attention deficit disorder with hyperactivity(314.01) Gastritis GERD (gastroesophageal reflux disease) Heart attack (HCC) states at age 19-no damage Hemorrhoids Panic attacks PUD (peptic ulcer disease) Snoring Syncope states in past 11/2015 Type I (juvenile type) diabetes mellitus without mention of complication, not stated as uncontrolled (HCC) Current Outpatient Medications Medication Sig Dispense Refill insulin degludec (TRESIBA FLEXTOUCH) 100 unit/mL (3 mL) injection pen INJECT 18 UNITS SUBCUTANEOUSLY AT BEDTIME citalopram (CELEXA) 20 mg tablet Take 1 tablet by mouth once daily. 90 tablet 1 INSULIN GLARGINE,HUM.REC.ANLOG (BASAGLAR KWIKPEN SUBCUTANEOUS) Inject 30 Units subcutaneously daily before breakfast. cholecalciferol, Vitamin D3, (VITAMIN D3) 50,000 unit cap capsule Take 1 capsule by mouth once each week. 12 capsule 1 metoclopramide HCl (REGLAN) 10 mg tablet Take 1 tablet by mouth before meals and at bedtime. 30min before meals. 120 tablet 0 Omeprazole 40 mg capsule take 1 capsule by mouth once daily 90 capsule 3 acetaminophen (TYLENOL) 325 mg tablet Take 650 mg by mouth every 6 hours as needed. insulin aspart (NOVOLOG FLEXPEN) 100 unit/mL inpn Take 8-10 units each meal 5 Pen 11 blood sugar diagnostic (FREESTYLE LITE STRIPS) test strip Test blood sugar 4-5 times daily. Dx: diabetes type 1. Insulin: Yes 150 Strip 11 doxycycline (VIBRA-TABS) 100 mg tablet Take 1 tablet by mouth two times a day for 7 days. 14 tablet 0 cyclobenzaprine (FLEXERIL) 10 mg tablet Take 1 tablet by mouth three times a day as needed. 15 tablet 0 naproxen (NAPROSYN) 500 mg tablet Take 1 tablet by mouth two times a day as needed (for pain/inflammation). Take with food. 14 tablet 0 No current facility-administered medications for this visit. PAST SURGICAL HISTORY Procedure Laterality Date COLONOSCOPY 05/08/2016 Hemorrhoids, Gastritis. EGD 05/08/2016 Normal PAST SURGICAL HISTORY OF Right 2016 trigger finger FAMILY HISTORY Problem Relation Age of Onset [...] per week Types: Marijuana Comment: marijuana use Objective BP 133/89 Pulse 98 Temp 36.4 ?C (97.5 ?F) Resp 18 Wt 64.7 kg (142 lb 10.2 oz) SpO2 99% BMI 23.02 kg/m? Physical Exam Vitals reviewed. Constitutional: Appearance: Normal appearance. HENT: Head: Comments: Patient has 2 1 and half centimeter raised red scabbed lesions on the left occipital scalp. Also has multiple scabbed areas on the left trapezius and paracervical area. He has a few scabs on the right trapezius area and on his arms as well. He is tender along the left paracervical musculature. No lymphadenopathy palpated. Has pain with rotation of the neck. Full flexion and extension of the neck. Normal strength and sensation in upper extremities. Normal hand grasp strength. Neurological: Mental Status: He is alert. Assessment and Plan ASSESSMENT/PLAN: 1. Infection of scalp - ICD9: 686.9, ICD10: L08.9 (primary diagnosis) Patient has 2 areas of infection on his scalp with scab lesions on his trapezius bilat (more content not included)... Normal [facility] Basophil percentageOrdered B y: Kalyani Hampton on 10-27-2023 Chloride [Moles/Vol] 106 mmol/L 98-107 [facility] Glucose [Mass/Vol] 255 mg/dL 74-106 [facility] Comment on above: Glucose result great er than or equal to 200 mg/dLsuggests DIABETES MELLITUS per A.D.A. criteria. Potassium [Moles/Vol] 3.9 mmol/L 3.5-5.1 [facility] Sodium [Moles/Vol] 139 mmol/L 136-145 [facility] Bilirubin Test strip Ql (U)O rdered By: Kalyani Hampton on 10-27-2023 Bilirubin Ql (U) Negative Negative [facility] Ketones Test strip Ql (U)Ord ered By: Kalyani Hampton on 10-27-2023 Ketones Ql (U) Negative Negative [facility] Laboratory - Chemistry and C hemistry - challengeOrdered By: Kalyani Hampton on 10-27-2023 CO2 [Moles/Vol] 28.0 mmol/L 21.0-32.0 [facility] Urea nitrogen/Creatinine [Mass ratio] 10.6 mg/mg 10-20 [facility] Nitrite Test strip Ql (U)Ord ered By: Kalyani Hampton on 10-27-2023 Nitrite Ql (U) Negative Negative [facility] No Panel InformationOrdered By: Kalyani Hampton on 10-27-2023 Estimated GFR (MDRD) Amer 95 mL/min >60 [facility] Comment on above: GFR Calc Estimated GFR (MDRD) Non-Af Amer 78 mL/min >60 [facility] Comment on above: Non- GFR Calc Protein Test strip Ql (U)Ord ered By: Kalyani Hampton on 10-27-2023 Protein Ql (U) Negative Negative [facility] Serum or plasma calcium allyn urement (mass/volume)Ordered By: Kalyani Hampton on 10-27-2023 Calcium [Mass/Vol] 9.1 mg/dL 8.5-10.1 [facility] Serum or plasma creatinine m easurement (mass/volume)Ordered By: Kalyani Hampton on 10-27-2023 Creatinine [Mass/Vol] 1.13 mg/dL 0.70-1.30 [facility] Comment on above: The validity of the calculated GFR & GFRAA in patients over 70 years has not been determined. Clinical correlation is essential. Serum or plasma urea nitroge n measurement (mass/volume)Ordered By: Kalyani Hampton on 10-27-2023 Urea nitrogen [Mass/Vol] 12 mg/dL 7-18 [facility] Thin prep Papanicolaou smear with manual screeningOrdered By: Kalyani Hampton on 10-27-2023 Thin prep Papanicolaou smear with manual screening < 6.0 mg/dL 0.0-11.8 [facility] Thin prep Papanicolaou smear with manual screening 5 5-15 [facility] Urine blood detectionOrdered By: Kalyani Hampton on 10-27-2023 RBC Ql (U) Negative Negative [facility] Urine clarityOrdered By: Nicko Hampton on 10-27-2023 Clarity (U) Clear Clear [facility] Urine color determinationOrd ered By: Kalyani Hampton on 10-27-2023 Color (U) Yellow Yellow [facility] Urine creatinine measurement (mass/volume)Ordered By: Kalyani Hampton on 10-27-2023 Creatinine (U) [Mass/Vol] 56.10 mg/dL NO RANGE EST. [facility] Urine glucose detectionOrder ed By: Kalyani Hampton on 10-27-2023 Glucose Ql (U) 1000 mg/dl Normal [facility] Urine leukocyte esterase det ection by dipstickOrdered By: Kalyani Hampton on 10-27-2023 Leukocyte esterase Test strip Ql (U) Negative Negative [facility] Urine pHOrdered By: Avtar Hampton on 10-27-2023 pH (U) 5.0 [pH] 5.0 - 8.0 [facility] Urine protein/creatinine mas s ratioOrdered By: Kalyani Hampton on 10-27-2023 Protein/Creatinine (U) [Mass ratio] 102 mg/g CRE 0-200 [facility] Urine specific gravity measu rementOrdered By: Kalyani Hampton on 10-27-2023 Specific gravity (U) [Rel density] 1.010 1.002-1.03 0 [facility] Urine urobilinogen measureme ntOrdered By: Kalyani Hampton on 10-27-2023 Urobilinogen Ql (U) Normal mg/dl Normal [facility] Laboratory - Hematology and Cell countson 08-14-2023 HbA1c (Bld) [Mass fraction] 9.9 % [facility] Basophil percentageOrdered B y: Kalyani Hampton on 07-24-2023 Chloride [Moles/Vol] 99 mmol/L 98-107 [facility] Glucose [Mass/Vol] 288 mg/dL 74-106 [facility] Comment on above: Glucose result great er than or equal to 200 mg/dLsuggests DIABETES MELLITUS per A.D.A. criteria. Potassium [Moles/Vol] 3.2 mmol/L 3.5-5.1 [facility] Sodium [Moles/Vol] 135 mmol/L 136-145 [facility] Laboratory - Chemistry and C hemistry - challengeOrdered By: Kalyani Hampton on 07-24-2023 CO2 [Moles/Vol] 25.0 mmol/L 21.0-32.0 [facility] [facility] Urea nitrogen/Creatinine [Mass ratio] 11.3 mg/mg 10-20 [facility] No Panel InformationOrdered By: Kalyani Hampton on 07-24-2023 Estimated GFR (MDRD) Amer 79 mL/min >60 [facility] Comment on above: GFR Calc Estimated GFR (MDRD) Non-Af Amer 65 mL/min >60 [facility] Comment on above: Non- GFR Calc Serum or plasma calcium allyn urement (mass/volume)Ordered By: Kalyani Hampton on 07-24-2023 Calcium [Mass/Vol] 9.7 mg/dL 8.5-10.1 [facility] Serum or plasma creatinine m easurement (mass/volume)Ordered By: Kalyani Hampton on 07-24-2023 Creatinine [Mass/Vol] 1.33 mg/dL 0.70-1.30 [facility] Comment on above: The validity of the calculated GFR & GFRAA in patients over 70 years has not been determined. Clinical correlation is essential. Serum or plasma urea nitroge n measurement (mass/volume)Ordered By: Kalyani Hampton on 07-24-2023 Urea nitrogen [Mass/Vol] 15 mg/dL 7-18 [facility] Thin prep Papanicolaou smear with manual screeningOrdered By: Kalyani Hampton on 07-24-2023 Thin prep Papanicolaou smear with manual screening 11 5-15 [facility] Absolute lymphocyte countOrd ered By: Ninoska Welch on 07-12-2023 Lymphocytes Auto (Unsp spec) [#/Vol] 1.51 10*3/uL 0.83-4.51 [facility] Automated lymphocyte count a s percentage of total leukocytesOrdered By: Ninoska Welch on 07-12-2023 Lymphocytes/100 WBC Auto (Unsp spec) 33.0 % 19-41 [facility] Basophil percentageOrdered B y: Ninoska Welch on 07-12-2023 Basophils/100 WBC (Bld) 1.1 % 0-1 [facility] Bilirubin [Mass/Vol] 1.00 mg/dL 0.20-1.00 [facility] Comment on above: For patients on eltr ombopag therapy, use of Dimension [place] TBIL is not recommended. Chloride [Moles/Vol] 106 mmol/L 98-107 [facility] Eosinophils/100 WBC (Bld) 2.4 % 0-5 [facility] Glucose [Mass/Vol] 281 mg/dL 74-106 [facility] Comment on above: Glucose result great er than or equal to 200 mg/dLsuggests DIABETES MELLITUS per A.D.A. criteria. Hemoglobin (Bld) [Mass/Vol] 12.4 g/dL 13.0-16.5 [facility] Monocytes/100 WBC (Bld) 10.7 % 0-10 [facility] Neutrophils (Bld) [#/Vol] 2.4 10*3/uL 2.0-7.7 [facility] Neutrophils/100 WBC (Bld) 52.4 % 47-70 [facility] Potassium [Moles/Vol] 3.6 mmol/L 3.5-5.1 [facility] Protein [Mass/Vol] 5.8 g/dL 6.4-8.2 [facility] Sodium [Moles/Vol] 139 mmol/L 136-145 [facility] WBC (Bld) [#/Vol] 4.6 10*3/uL 4.4-11.0 [facility] Determination of erythrocyte mean corpuscular volume (MCV)Ordered By: Ninoska Welch on 07-12-2023 MCV (RBC) [Entitic vol] 92.7 fL 80-94 [facility] Erythrocyte distribution wid th ratioOrdered By: Ninoska Welch on 07-12-2023 Erythrocyte distribution width (RBC) [Ratio] 11.9 % 11.6-14.6 [facility] Erythrocyte distribution wid th standard deviationOrdered By: Ninoska Welch on 07-12-2023 Erythrocyte distribution width (RBC) [Entitic vol] 41.1 fL 35.1-43.9 [facility] Hematocrit Auto (Bld) [Volum e fraction]Ordered By: Ninoska Welch on 07-12-2023 Hematocrit (Bld) [Volume fraction] 35.7 % 40-54 [facility] Immature granulocytes/100 WB C Auto (Bld)Ordered By: Ninoska Welch on 07-12-2023 Immature granulocytes/100 WBC (Bld) 0.400 % 0.0-0.9 [facility] Comment on above: IG% - Immature Granu locytes (promyelocytes, myelocytes and metamyelocytes) > 1% indicates that a LEFT SHIFT is Present. Laboratory - Chemistry and C hemistry - challengeOrdered By: Ninoska Welch on 07-12-2023 Albumin/Globulin [Mass ratio] 0.8 {ratio} 0.9-2.4 [facility] ALP [Catalytic activity/Vol] 173 U/L 45-117 [facility] ALT [Catalytic activity/Vol] 36 U/L 16-61 [facility] CO2 [Moles/Vol] 25.0 mmol/L 21.0-32.0 [facility] Globulin (S) [Mass/Vol] 3.2 g/dL 2.2-4.2 [facility] Urea nitrogen/Creatinine [Mass ratio] 6.7 mg/mg 10-20 [facility] Laboratory - Hematology and Cell countsOrdered By: Ninoska Welch on 07-12-2023 MCH (RBC) [Entitic mass] 32.2 pg 27.0-32.0 [facility] MCHC (RBC) [Mass/Vol] 34.7 g/dL 32-36 [facility] Comment on above: Delta: 32.5 on 07/11-0438 Nucleated RBC/100 WBC (Bld) [Ratio] 0 % 0-5 [facility] Platelets (Bld) [#/Vol] 176 10*3/uL 150-450 [facility] No Panel InformationOrdered By: Ninoska Welch on 07-12-2023 Estimated Creatinine Clearance Calc 26.45 ml/min [facility] Estimated GFR (MDRD) Amer 28 mL/min >60 [facility] Comment on above: GFR Calc Estimated GFR (MDRD) Non-Af Amer 23 mL/min >60 [facility] Comment on above: Non- GFR Calc Platelet mean volume Ernie-Ec ker (Bld) [Entitic vol]Ordered By: Ninoska Welch on 07-12-2023 Platelet mean volume (Bld) [Entitic vol] 9.5 fL 6.2-12.0 [facility] RBC Auto (Bld) [#/Vol]Ordere d By: Ninoska Welch on 07-12-2023 RBC (Bld) [#/Vol] 3.85 10*6/uL 4.6-6.2 [facility] Serum or plasma calcium allyn urement (mass/volume)Ordered By: Ninoska Welch on 07-12-2023 Calcium [Mass/Vol] 9.2 mg/dL 8.5-10.1 [facility] Serum or plasma creatinine m easurement (mass/volume)Ordered By: Ninoska Welch on 07-12-2023 Creatinine [Mass/Vol] 3.27 mg/dL 0.70-1.30 [facility] Comment on above: The validity of the calculated GFR & GFRAA in patients over 70 years has not been determined. Clinical correlation is essential. Serum or plasma urea nitroge n measurement (mass/volume)Ordered By: Ninoska Welch on 07-12-2023 Urea nitrogen [Mass/Vol] 22 mg/dL 7-18 [facility] Thin prep Papanicolaou smear with manual screeningOrdered By: Ninoska Welch on 07-12-2023 Thin prep Papanicolaou smear with manual screening 272 mg/dL 74-106 [facility] Comment on above: MANAGEMENT OF PATIEN T CARE PER NURSING PROTOCOL Thin prep Papanicolaou smear with manual screening 2.6 g/dL 3.2-5.0 [facility] Thin prep Papanicolaou smear with manual screening 42 U/L 15-37 [facility] Thin prep Papanicolaou smear with manual screening 8 5-15 [facility] Direct bilirubinOrdered By: Ninoska Welch on 07-11-2023 Bilirubin.direct [Mass/Vol] 0.25 mg/dL 0.00-0.30 [facility] Stool gastrointestinal hemog lobin detection by immunologic methodOrdered By: Ninoska Welch on 07-11-2023 Lower GI hemoglobin IA Ql (Stl) [facility] Lower GI hemoglobin IA Ql (Stl) [facility] Basophil percentageOrdered B y: Janey Mcpherson on 07-10-2023 Amylase [Catalytic activity/Vol] 38 U/L 25-115 [facility] Basophil percentage 0-5 SEEN /hpf 0-5 [facility] Bilirubin Test strip Ql (U)O rdered By: Janey Mcpherson on 07-10-2023 Bilirubin Ql (U) Negative Negative [facility] Erythrocyte sedimentation ra teOrdered By: Janey Mcpherson on 07-10-2023 ESR (Bld) [Velocity] 7 mm/h 0-20 [facility] Ketones Test strip Ql (U)Ord ered By: Janey Mcpherson on 07-10-2023 Ketones Ql (U) 5 mg/dl Negative [facility] Laboratory - Chemistry and C hemistry - challengeOrdered By: Janey Mcpherson on 07-10-2023 CK [Catalytic activity/Vol] 303 U/L 39-308 [facility] Comment on above: Moderate Hemolysis, Result may be falsely increased. Lipase [Catalytic activity/Vol] 55 U/L 13-75 [facility] Comment on above: Please note:LIPASE r evised reference range effective 22. New Lipase methodology. Expected to produce lower values than the previous assay method. NEW Reference Range: 13 - 75 U/L Laboratory - Chemistry and C hemistry - challengeOrdered By: Ninoska Welch on 07-10-2023 Sodium (U) [Moles/Vol] 46 mmol/L Not Establ. [facility] Mucus LM Ql (Urine sed)Order ed By: Janey Mcpherson on 07-10-2023 Mucus Ql (Urine sed) 0 SEEN /hpf [facility] Nitrite Test strip Ql (U)Ord ered By: Janey Mcpherson on 07-10-2023 Nitrite Ql (U) Negative Negative [facility] No Panel InformationOrdered By: Ninoska Welch on 07-10-2023 Urine Potassium 32.0 mmol/L Not Establ. [facility] Urine Urea Nitrogen 283 mg/dL NO RANGE EST. [facility] No Panel InformationOrdered By: Janey Mcpherson on 07-10-2023 Urine RBC 0 SEEN /hpf 0-5 [facility] Protein Test strip Ql (U)Ord ered By: Janey Mcpherson on 07-10-2023 Protein Ql (U) 30 mg/dl Negative [facility] Serum or plasma acetone allyn urement (mass/volume)Ordered By: Esteban Gutierrez on 07-10-2023 Acetone [Mass/Vol] Negative NEG [facility] Squamous epithelial cells de tection in urine sediment by light microscopyOrdered By: Janey Mcpherson on 07-10-2023 Epithelial cells.squamous LM Ql (Urine sed) 0-5 SEEN /hpf 0-5 [facility] Urine blood detectionOrdered By: Janey Mcpherson on 07-10-2023 RBC Ql (U) 10 /ul Negative [facility] Urine chloride measurement ( moles/volume)Ordered By: Ninoska Welch on 07-10-2023 Chloride (U) [Moles/Vol] 55 mmol/L Not Establ. [facility] Urine clarityOrdered By: Jeannie Mcpherson on 07-10-2023 Clarity (U) Clear Clear [facility] Urine color determinationOrd ered By: Janey Mcpherson on 07-10-2023 Color (U) Straw Yellow [facility] Urine glucose detectionOrder ed By: Janey Mcpherson on 07-10-2023 Glucose Ql (U) 250 mg/dl Normal [facility] Urine leukocyte esterase det ection by dipstickOrdered By: Janey Mcpherson on 07-10-2023 Leukocyte esterase Test strip Ql (U) Negative Negative [facility] Urine osmolality measurement Ordered By: Ninoska Welch on 07-10-2023 Osmolality (U) [Osmolality] 297 mOsm/KG >50 [facility] Comment on above: Normal Urine Referen ce Ranges Random: 50 - 1200 mOsm/kg H20 depending on fluid intake Random: >850 mOsm/kg after 12 hour fluid restriction 24 hour: ~300 - 900 mOsm/kg H2O Urine pHOrdered By: Janey proctor on 07-10-2023 pH (U) 6.0 [pH] 5.0 - 8.0 [facility] Urine sediment bacteria coun t by microscopy (number/high power field)Ordered By: Janey Mcpherson on 07-10-2023 Bacteria LM.HPF (Urine sed) [#/Area] 0 /[HPF] None Seen [facility] Urine specific gravity measu rementOrdered By: Janey Mcpherson on 07-10-2023 Specific gravity (U) [Rel density] 1.010 1.002-1.03 0 [facility] Urine urobilinogen measureme ntOrdered By: Janey Mcpherson on 07-10-2023 Urobilinogen Ql (U) Normal mg/dl Normal [facility] Blood eosinophils/100 leukoc ytesOrdered By: Ninoska Welch on 07-09-2023 Eosinophils/100 WBC (Bld) 6 % 0-5 [facility] Blood lymphocytes/100 leukoc ytesOrdered By: Ninoska Welch on 07-09-2023 Lymphocytes/100 WBC (Bld) 9 % 19-41 [facility] Blood monocytes/100 leukocyt esOrdered By: Ninoska Welch on 07-09-2023 Monocytes/100 WBC (Bld) 10 % 0-10 [facility] Blood segmented neutrophils/ 100 leukocytesOrdered By: Ninoska Welch on 07-09-2023 Segmented neutrophils/100 WBC (Bld) 75 % 47-70 [facility] Poikilocyte detectionOrdered By: Ninoska Welch on 07-09-2023 Poikilocytosis LM Ql (Bld) [facility] RBC morphologyOrdered By: Bárbara Welch on 07-09-2023 RBC morphology finding Nom (Bld) N CHROM NORMAL NORM C&C [facility] Review by pathologistOrdered By: Ninoska Welch on 07-09-2023 Pathologist review Ricky (Unsp spec) [Interp] October [facility] Serum or plasma thyroid stim ulating hormone (TSH) measurement (units/volume)Ordered By: Ninoska Welch on 07-09-2023 TSH Qn 0.59 uIU/mL 0.358-3.74 [facility] Total cell countOrdered By: Ninoska Welch on 07-09-2023 Cells counted Molgen (Bld/Tiss) [#] 100 MANUAL DIFF [facility] Urine creatinine measurement (mass/volume)Ordered By: Ninoska Welch on 07-09-2023 Creatinine (U) [Mass/Vol] 122.00 mg/dL NO RANGE EST. [facility] Absolute lymphocyte countOrd ered By: Kaleb Davies on 07-08-2023 Lymphocytes Auto (Unsp spec) [#/Vol] 1.75 10*3/uL 0.83-4.51 [facility] Basophil percentageOrdered B y: Ninoska Welch on 07-08-2023 Lactate [Moles/Vol] 3.7 mmol/L 0.4-2.0 [facility] Comment on above: Critical Result(s) C alled at: 16:57:35 07/08/2023 by: Shannan lima TO GUILLERMO. Results read back by same. Basophil percentageOrdered B y: Kaleb Davies on 07-08-2023 Basophils/100 WBC (Bld) 0.6 % 0-1 [facility] Bilirubin [Mass/Vol] 1.60 mg/dL 0.20-1.00 [facility] Comment on above: For patients on eltr ombopag therapy, use of Dimension [place] TBIL is not recommended. Chloride [Moles/Vol] 97 mmol/L 98-107 [facility] Eosinophils/100 WBC (Bld) 0.0 % 0-5 [facility] Glucose [Mass/Vol] 212 mg/dL 74-106 [facility] Comment on above: Glucose result great er than or equal to 200 mg/dLsuggests DIABETES MELLITUS per A.D.A. criteria. Neutrophils (Bld) [#/Vol] 15.5 10*3/uL 2.0-7.7 [facility] Neutrophils/100 WBC (Bld) 79.6 % 47-70 [facility] Potassium [Moles/Vol] 3.8 mmol/L 3.5-5.1 [facility] Protein [Mass/Vol] 9.5 g/dL 6.4-8.2 [facility] Sodium [Moles/Vol] 141 mmol/L 136-145 [facility] WBC (Bld) [#/Vol] 19.4 10*3/uL 4.4-11.0 [facility] Blood erythrocytes count (nu mber/volume)Ordered By: Kaleb Davies on 07-08-2023 RBC (Bld) [#/Vol] 5.37 10*6/uL 4.6-6.2 [facility] Blood hemoglobin measurement (mass/volume)Ordered By: Kaleb Davies on 07-08-2023 Hemoglobin (Bld) [Mass/Vol] 17.0 g/dL 13.0-16.5 [facility] Blood lymphocytes/100 leukoc ytesOrdered By: Kaleb Davies on 07-08-2023 Lymphocytes/100 WBC (Bld) 9.0 % 19-41 [facility] Blood manual differential co mment interpretation (narrative result)Ordered By: Kaleb Davies on 07-08-2023 Manual differential comment Ricky (Bld) [Interp] SCANNED [facility] Blood monocytes/100 leukocyt esOrdered By: Kaleb Davies on 07-08-2023 Monocytes/100 WBC (Bld) 10.3 % 0-10 [facility] Blood platelet mean volumeOr dered By: Kaleb Davies on 07-08-2023 Platelet mean volume (Bld) [Entitic vol] 9.4 fL 6.2-12.0 [facility] Calcium oxalate crystals det ection in urine sediment by light microscopyOrdered By: Kaleb Davies on 07-08-2023 Calcium oxalate crystals LM Ql (Urine sed) 1+ /hpf [facility] Culture, urineOrdered By: Bárbara Welch on 07-08-2023 Bacteria identified Cx Nom (U) Culture exhibits no growth. [facility] Bacteria identified Cx Nom (U) Culture exhibits no growth. [facility] Determination of erythrocyte mean corpuscular volume (MCV)Ordered By: Kaleb Davies on 07-08-2023 MCV (RBC) [Entitic vol] 91.6 fL 80-94 [facility] HCO3 (BldA) [Moles/Vol]Order ed By: Kaleb Davies on 07-08-2023 HCO3 (Bld) [Moles/Vol] 20 mmol/L 22-26 [facility] Hematocrit Auto (Bld) [Volum e fraction]Ordered By: Kaleb Davies on 07-08-2023 Hematocrit (Bld) [Volume fraction] 49.2 % 40-54 [facility] Hyaline casts LM.LPF (Urine sed) [#/Area]Ordered By: Kaleb Davies on 07-08-2023 Hyaline casts (Urine sed) [#/Area] 0 /[LPF] 0-5 [facility] Laboratory - Chemistry and C hemistry - challengeOrdered By: Kaleb Davies on 07-08-2023 CO2 [Moles/Vol] 21 mmol/L 23-33 [facility] ALP [Catalytic activity/Vol] 235 U/L 45-117 [facility] ALT [Catalytic activity/Vol] 24 U/L 16-61 [facility] CO2 [Moles/Vol] 21.0 mmol/L 21.0-32.0 [facility] Globulin (S) [Mass/Vol] 4.8 g/dL 2.2-4.2 [facility] Magnesium [Mass/Vol] 2.3 mg/dL 1.6-2.6 [facility] Urea nitrogen/Creatinine [Mass ratio] 10.0 mg/mg 10-20 [facility] Laboratory - Drug toxicology Ordered By: Ninoska Welch on 07-08-2023 Amphetamines Ql (U) Negative <1000 ng/mL [facility] Benzodiazepines Ql (U) Negative < 200 ng/mL [facility] Cannabinoids Screen Ql (U) Negative < 50 ng/mL [facility] Cocaine Ql (U) Positive < 300 ng/mL [facility] Opiates Ql (U) Negative < 300 ng/mL [facility] Laboratory - Hematology and Cell countsOrdered By: Kaleb Davies on 07-08-2023 Erythrocyte distribution width (RBC) [Entitic vol] 43.4 fL 35.1-43.9 [facility] Erythrocyte distribution width (RBC) [Ratio] 13.1 % 11.6-14.6 [facility] Immature granulocytes/100 WBC (Bld) 0.500 % 0.0-0.9 [facility] Comment on above: IG% - Immature Granu locytes (promyelocytes, myelocytes and metamyelocytes) > 1% indicates that a LEFT SHIFT is Present. MCH (RBC) [Entitic mass] 31.7 pg 27.0-32.0 [facility] Nucleated RBC/100 WBC (Bld) [Ratio] 0 % 0-5 [facility] Laboratory - Microbiology an d Antimicrobial susceptibilityOrdered By: Ninoska Welch on 07-08-2023 Bacteria identified Cx Nom (Bld) No growth in 5 days. [facility] Bacteria identified Cx Nom (Bld) No growth in 5 days. [facility] Laboratory - Microbiology an d Antimicrobial susceptibilityOrdered By: Kaleb Davies on 07-08-2023 SARS-CoV-2 (COVID-19) RNA ANANTH+probe Ql (Unsp spec) [facility] MCHC Auto (RBC) [Mass/Vol]Or dered By: Kaleb Davies on 07-08-2023 MCHC (RBC) [Mass/Vol] 34.6 g/dL 32-36 [facility] Measurement, pHOrdered By: Valery Davies on 07-08-2023 pH (Unsp spec) 7.46 [pH] 7.32-7.42 [facility] No Panel InformationOrdered By: Ninoska Welch on 07-08-2023 MDMA (Ecstasy) Screen Negative < 500 ng/mL [facility] Urine Barbiturates Screen Negative < 200 ng/mL [facility] Urine Drug Screen Comment [facility] Comment on above: CONFIRMATORY TESTING FOR ALL POSITIVE URINE DRUG SCREENRESULTS WILL ONLY BE SENT OUT UPON PHYSICIAN ORDER. VISTA Urine Drug Screen methods provide only preliminaryanalytical test results. A more specific alternate chemicalmethod must be used in order to obtain a confirmedanalytical result. Gas chromatography/mass spectrometery(GC/MS) is the preferred confirmatory method. Clinicalconsideration and professional judgement should be appliedto any drug of abuse test result, particularly whenpreliminary positive results are used. URINE TCA TESTING MUST BE ORDERED SEPARATELY. USE TESTMNEMONIC: [facility] Urine Methadone Screen Negative < 300 ng/mL [facility] No Panel InformationOrdered By: Kaleb Davies on 07-08-2023 Bed Mix Venous Bld PCO2 at Pat Temp 27.4 mmHg 41-51 [facility] Blood Gas Oxygen Percent 21.0 [facility] Blood Gas Sample Site Not entered [facility] Blood Gas Specimen Type AMADO [facility] Oxygen Delivery Device Not entered [facility] Venous Blood Base Excess -4 mmol/L -1.0-3.5 [facility] Estimated Creatinine Clearance Calc 21.98 ml/min [facility] Estimated GFR (MDRD) Amer 25 mL/min >60 [facility] Comment on above: GFR Calc Estimated GFR (MDRD) Non-Af Amer 21 mL/min >60 [facility] Comment on above: Non- GFR Calc Troponin I High Sensitivity 5 pg/mL 3.0-78.0 [facility] Comment on above: Please Note: New Quita t Units and Gender Specific Reference Ranges. For more information see Policy Stat Procedure [place] High Sensitivity Troponin (TNIH) and attachments. PO2 venousOrdered By: Kaleb Davies on 07-08-2023 Oxygen (BldV) [Partial pressure] 98 mm[Hg] 25-40 [facility] Platelets bldOrdered By: Jose Davies on 07-08-2023 Platelets (Bld) [#/Vol] 581 10*3/uL 150-450 [facility] Respiratory pathogens detect ion panel by molecular detection methodOrdered By: Ninoska Welch on 07-08-2023 Respiratory pathogens DNA and RNA panel ANANTH+probe (Resp) [facility] Respiratory pathogens DNA and RNA panel ANANTH+probe (Resp) [facility] Review by pathologistOrdered By: Kaleb Davies on 07-08-2023 Pathologist review Ricky (Unsp spec) [Interp] May foll [facility] Serum or plasma acetone allyn urement (mass/volume)Ordered By: Kaleb Davies on 07-08-2023 Acetone [Mass/Vol] MODERATE NEG [facility] Serum or plasma albumin allyn urement (mass/volume)Ordered By: Kaleb Davies on 07-08-2023 Albumin [Mass/Vol] 4.7 g/dL 3.2-5.0 [facility] Serum or plasma albumin/glob ulin mass ratioOrdered By: Kaleb Davies on 07-08-2023 Albumin/Globulin [Mass ratio] 1.0 {ratio} 0.9-2.4 [facility] Serum or plasma calcium allyn urement (mass/volume)Ordered By: Kaleb Davies on 07-08-2023 Calcium [Mass/Vol] 11.5 mg/dL 8.5-10.1 [facility] Serum or plasma creatinine m easurement (mass/volume)Ordered By: Kaleb Davies on 07-08-2023 Creatinine [Mass/Vol] 3.61 mg/dL 0.70-1.30 [facility] Comment on above: The validity of the calculated GFR & GFRAA in patients over 70 years has not been determined. Clinical correlation is essential. Serum or plasma urea nitroge n measurement (mass/volume)Ordered By: Kaleb Davies on 07-08-2023 Urea nitrogen [Mass/Vol] 36 mg/dL 7-18 [facility] Serum procalcitonin measurem entOrdered By: Ninoska Welch on 07-08-2023 Procalcitonin [Mass/Vol] 0.61 ng/mL 0.00-0.09 [facility] Comment on above: A procalcitonin (PCT ) level above 2.0 ng/mL on the first day of ICU admission is associated with a high risk for progression to severe sepsis and/or septic shock. A PCT level below 0.5 ng/mL on the first day of ICU admission is associated with a low risk for progression to severe and/or septic shock. Note: Concentrations <0.5 ng/mL do not exclude an infection on account of localized infections (without systemic signs) which can be associated with such low concentrations, or a systemic infection in its initial stages (<6 hours). Furthermore, increased procalcitonin can occur without infection. PCT concentrations between 0.5 and 2.0 ng/mL should be interpreted taking into account the patient's history. It is recommended to retest PCT within 6-24 hours if any concentrations <2 ng/mL are obtained. Thin prep Papanicolaou smear with manual screeningOrdered By: Kaleb Davies on 07-08-2023 Thin prep Papanicolaou smear with manual screening 291 mg/dL 74-106 [facility] Comment on above: MANAGEMENT OF PATIEN T CARE PER NURSING PROTOCOL Thin prep Papanicolaou smear with manual screening 26 U/L 15-37 [facility] Thin prep Papanicolaou smear with manual screening 23 5-15 [facility] Urine phencyclidine (PCP) de tectionOrdered By: Ninoska Welch on 07-08-2023 Phencyclidine Ql (U) Negative < 25 ng/mL [facility] Urine sediment fine granular cast count by microscopy (number/low power field)Ordered By: Kaleb Davies on 07-08-2023 Fine Granular Casts LM.LPF (Urine sed) [#/Area] 0-5 SEEN /lpf 0-5 [facility] Vital signsOrdered By: Slava Davies on 07-08-2023 Oxygen saturation in Blood 98 % 50-70 [facility] CNOVon 05-23-2023 CNOV Office Visit (UCWSTR ) HANS GONZALEZ ([id number]) 1990 M Date Time Provider Department 05/23/23 5:15 PM PATRICIO DAWN WSTR During your visit today, we recorded the following information about you: Temperature Pulse Respiration Blood pressure 97.5 degrees 102/minute 16/minute 106/62 Weight 58.2 kg Patricio Dawn APRN.CNP 05/23/2023 5:59 PM Signed CC: Patient presents with: Cough: Fever, vomiting, fatigue and leg pain x 3 days HPI: Hans Gonzalez is a 33 year old male who [...] symptoms occur. Patient agreeable to treatment plan. Patricio Dawn APRN.AERONAUTICAL RESEARCH ENGINEER Allergies As of Date: 05/23/2023 (No Known Allergies) Date Reviewed: 05/23/2023 Reviewed by: Nayana Patel OCCA - Fully Assessed Reason for Visit: Cough [28] Cmt: Fever, vomiting, fatigue and leg pain x 3 days Primary Visit Diagnosis:URI, acute [J06.9] Prescriptions as of 05/23/2023 - citalopram (CELEXA) 20 mg tablet Take 1 tablet by mouth once daily. - INSULIN GLARGINE,HUM.REC.ANLOG (BASAGLAR KWIKPEN SUBCUTANEOUS) Inject 30 Units subcutaneously daily before breakfast. - cholecalciferol, Vitamin D3, (VITAMIN D3) 50,000 unit cap capsule Take 1 capsule by mouth once each week. - metoclopramide HCl (REGLAN) 10 mg tablet Take 1 tablet by mouth before meals and at bedtime. 30min before meals. - Omeprazole 40 mg capsule take 1 capsule by mouth once daily - acetaminophen (TYLENOL) 325 mg tablet Take 650 mg by mouth every 6 hours as needed. - insulin aspart (NOVOLOG FLEXPEN) 100 unit/mL inpn Take 8-10 units each (more content not included)... Normal [facility] Absolute lymphocyte countOrd ered By: Dr. Katz on 11-13-2022 Lymphocytes Auto (Unsp spec) [#/Vol] 1.64 10*3/uL 0.83-4.51 [facility] Basophil percentageOrdered B y: Dr. Katz on 11-13-2022 Basophils/100 WBC (Bld) 1.0 % 0-1 [facility] Bilirubin [Mass/Vol] 1.10 mg/dL 0.20-1.00 [facility] Comment on above: For patients on eltr ombopag therapy, use of Dimension [place] TBIL is not recommended. Chloride [Moles/Vol] 105 mmol/L 98-107 [facility] Eosinophils/100 WBC (Bld) 3.8 % 0-5 [facility] Glucose [Mass/Vol] 258 mg/dL 74-106 [facility] Comment on above: Glucose result great er than or equal to 200 mg/dLsuggests DIABETES MELLITUS per A.D.A. criteria. Neutrophils (Bld) [#/Vol] 3.8 10*3/uL 2.0-7.7 [facility] Neutrophils/100 WBC (Bld) 60.6 % 47-70 [facility] Potassium [Moles/Vol] 4.7 mmol/L 3.5-5.1 [facility] Protein [Mass/Vol] 7.6 g/dL 6.4-8.2 [facility] Sodium [Moles/Vol] 139 mmol/L 136-145 [facility] WBC (Bld) [#/Vol] 6.3 10*3/uL 4.4-11.0 [facility] Blood erythrocytes count (nu mber/volume)Ordered By: Dr. Katz on 11-13-2022 RBC (Bld) [#/Vol] 4.61 10*6/uL 4.6-6.2 [facility] Blood hemoglobin measurement (mass/volume)Ordered By: Dr. Katz on 11-13-2022 Hemoglobin (Bld) [Mass/Vol] 14.6 g/dL 13.0-16.5 [facility] Blood lymphocytes/100 leukoc ytesOrdered By: Dr. Katz on 11-13-2022 Lymphocytes/100 WBC (Bld) 26.0 % 19-41 [facility] Blood monocytes/100 leukocyt esOrdered By: Dr. Katz on 11-13-2022 Monocytes/100 WBC (Bld) 8.3 % 0-10 [facility] Blood platelet mean volumeOr dered By: Dr. Katz on 11-13-2022 Platelet mean volume (Bld) [Entitic vol] 9.5 fL 6.2-12.0 [facility] Determination of erythrocyte mean corpuscular volume (MCV)Ordered By: Dr. Katz on 11-13-2022 MCV (RBC) [Entitic vol] 90.5 fL 80-94 [facility] Hematocrit Auto (Bld) [Volum e fraction]Ordered By: Dr. Katz on 11-13-2022 Hematocrit (Bld) [Volume fraction] 41.7 % 40-54 [facility] Laboratory - Chemistry and C hemistry - challengeOrdered By: Dr. Katz on 11-13-2022 ALP [Catalytic activity/Vol] 157 U/L 45-117 [facility] ALT [Catalytic activity/Vol] 18 U/L 16-61 [facility] CO2 [Moles/Vol] 26.0 mmol/L 21.0-32.0 [facility] Globulin (S) [Mass/Vol] 3.9 g/dL 2.2-4.2 [facility] Urea nitrogen/Creatinine [Mass ratio] 10.4 mg/mg 10-20 [facility] Laboratory - Hematology and Cell countsOrdered By: Dr. Katz on 11-13-2022 Erythrocyte distribution width (RBC) [Entitic vol] 40.3 fL 35.1-43.9 [facility] Erythrocyte distribution width (RBC) [Ratio] 12.2 % 11.6-14.6 [facility] Immature granulocytes/100 WBC (Bld) 0.300 % 0.0-0.9 [facility] Comment on above: IG% - Immature Granu locytes (promyelocytes, myelocytes and metamyelocytes) > 1% indicates that a LEFT SHIFT is Present. MCH (RBC) [Entitic mass] 31.7 pg 27.0-32.0 [facility] Nucleated RBC/100 WBC (Bld) [Ratio] 0 % 0-5 [facility] Laboratory - Hematology and Cell countson 11-13-2022 HbA1c (Bld) [Mass fraction] 7.4 % 4.2-6.3 [facility] MCHC Auto (RBC) [Mass/Vol]Or dered By: Dr. Katz on 11-13-2022 MCHC (RBC) [Mass/Vol] 35.0 g/dL 32-36 [facility] No Panel InformationOrdered By: Dr. Katz on 11-13-2022 Estimated GFR (MDRD) Amer 93 mL/min >60 [facility] Comment on above: GFR Calc Estimated GFR (MDRD) Non-Af Amer 77 mL/min >60 [facility] Comment on above: Non- GFR Calc Urine Microalbumin/Creatinine Ratio 15.2 mg/g CRE <30 [facility] Platelets bldOrdered By: Dr. Katz on 11-13-2022 Platelets (Bld) [#/Vol] 370 10*3/uL 150-450 [facility] Serum or plasma albumin allyn urement (mass/volume)Ordered By: Dr. Katz on 11-13-2022 Albumin [Mass/Vol] 3.7 g/dL 3.2-5.0 [facility] Serum or plasma albumin/glob ulin mass ratioOrdered By: Dr. Katz on 11-13-2022 Albumin/Globulin [Mass ratio] 0.9 {ratio} 0.9-2.4 [facility] Serum or plasma calcium allyn urement (mass/volume)Ordered By: Dr. Katz on 11-13-2022 Calcium [Mass/Vol] 9.6 mg/dL 8.5-10.1 [facility] Serum or plasma creatinine m easurement (mass/volume)Ordered By: Dr. Katz on 11-13-2022 Creatinine [Mass/Vol] 1.15 mg/dL 0.70-1.30 [facility] Comment on above: The validity of the calculated GFR & GFRAA in patients over 70 years has not been determined. Clinical correlation is essential. Serum or plasma urea nitroge n measurement (mass/volume)Ordered By: Dr. Kazt on 11-13-2022 Urea nitrogen [Mass/Vol] 12 mg/dL 7-18 [facility] Thin prep Papanicolaou smear with manual screeningOrdered By: Dr. Katz on 11-13-2022 Thin prep Papanicolaou smear with manual screening 20 U/L 15-37 [facility] Thin prep Papanicolaou smear with manual screening 8 5-15 [facility] Thin prep Papanicolaou smear with manual screening 9.5 mg/L NO RANGE EST. [facility] Urine creatinine measurement (mass/volume)Ordered By: Dr. Katz on 11-13-2022 Creatinine (U) [Mass/Vol] 62.60 mg/dL NO RANGE EST. [facility] Basophil percentageOrdered B y: Dr. Katz on 07-29-2022 Basophil percentage Not Reportable [facility] Erythrocyte sedimentation ra teOrdered By: Dr. Katz on 07-29-2022 ESR (Bld) [Velocity] 7 mm/h 0-20 [facility] No Panel InformationOrdered By: Dr. Katz on 07-29-2022 Anti-Nuclear Antibody Screen Negative Negative [facility] Comment on above: Performed at: [address] [id number] Director: Kole Dye PhD, Phone: [phone] [employer] B Antibody Not Reportable [facility] CIVIL ENGINEERING PROJECT MANAGER Antibody Not Reportable [facility] Serum DNA double strand anti body assay (units/volume)Ordered By: Dr. Katz on 07-29-2022 DNA double strand Ab Qn (S) Not Reportable [facility] Serum Odilia-1 antibody assay (u nits/volume)Ordered By: Dr. Katz on 07-29-2022 Odilia-1 extractable nuclear Ab Qn (S) Not Reportable [facility] Serum Scl-70 extractable nuc lear antibody assay (units/volume)Ordered By: Dr. Katz on 07-29-2022 SCL-70 extractable nuclear Ab Qn (S) Not Reportable [facility] Serum Mendoza extractable nucl ear antibody detectionOrdered By: Dr. Katz on 07-29-2022 Mendoza extractable nuclear Ab Ql (S) Not Reportable [facility] Serum or plasma C reactive p rotein measurement (mass/volume)Ordered By: Dr. Katz on 07-29-2022 CRP [Mass/Vol] 27.50 mg/L 0.0-3.0 [facility] Comment on above: C-Reactive Protein ( CRP) provides useful information for thediagnosis, therapy and monitoring of inflammatory processesand associated diseases. For the evaluation of Relative Riskfor Cardiovascular Disease, a High Sensitivity CRP (HSCRP)should be ordered. Serum rheumatoid factor dete ctionOrdered By: Dr. Katz on 07-29-2022 Rheumatoid factor Ql (S) < 10.0 IU/mL <15 [facility] Absolute lymphocyte countOrd ered By: Dr. Katz on 06-27-2022 Lymphocytes Auto (Unsp spec) [#/Vol] 1.67 10*3/uL 0.83-4.51 [facility] Basophil percentageOrdered B y: Dr. Katz on 06-27-2022 Basophils/100 WBC (Bld) 0.7 % 0-1 [facility] Bilirubin [Mass/Vol] 2.00 mg/dL 0.20-1.00 [facility] Comment on above: For patients on eltr ombopag therapy, use of Dimension [place] TBIL is not recommended. Chloride [Moles/Vol] 90 mmol/L 98-107 [facility] Eosinophils/100 WBC (Bld) 1.4 % 0-5 [facility] Glucose [Mass/Vol] 592 mg/dL 74-106 [facility] Comment on above: Critical Result(s) C alled at: 19:13:13 06/27/2022 by: Randy Durand to Dr. Vasquez [place]. Results read back by same.Glucose result greater than or equal to 200 mg/dLsuggests DIABETES MELLITUS per A.D.A. criteria. Neutrophils (Bld) [#/Vol] 6.2 10*3/uL 2.0-7.7 [facility] Neutrophils/100 WBC (Bld) 69.1 % 47-70 [facility] Potassium [Moles/Vol] 5.0 mmol/L 3.5-5.1 [facility] Protein [Mass/Vol] 7.8 g/dL 6.4-8.2 [facility] Sodium [Moles/Vol] 129 mmol/L 136-145 [facility] WBC (Bld) [#/Vol] 9.0 10*3/uL 4.4-11.0 [facility] Blood erythrocytes count (nu mber/volume)Ordered By: Dr. Katz on 06-27-2022 RBC (Bld) [#/Vol] 5.06 10*6/uL 4.6-6.2 [facility] Blood hemoglobin measurement (mass/volume)Ordered By: Dr. Katz on 06-27-2022 Hemoglobin (Bld) [Mass/Vol] 16.2 g/dL 13.0-16.5 [facility] Blood lymphocytes/100 leukoc ytesOrdered By: Dr. Katz on 06-27-2022 Lymphocytes/100 WBC (Bld) 18.6 % 19-41 [facility] Blood monocytes/100 leukocyt esOrdered By: Dr. Katz on 06-27-2022 Monocytes/100 WBC (Bld) 9.9 % 0-10 [facility] Blood platelet mean volumeOr dered By: Dr. Katz on 06-27-2022 Platelet mean volume (Bld) [Entitic vol] 10.1 fL 6.2-12.0 [facility] Determination of erythrocyte mean corpuscular volume (MCV)Ordered By: Dr. Katz on 06-27-2022 MCV (RBC) [Entitic vol] 91.9 fL 80-94 [facility] Hematocrit Auto (Bld) [Volum e fraction]Ordered By: Dr. Katz on 06-27-2022 Hematocrit (Bld) [Volume fraction] 46.5 % 40-54 [facility] Laboratory - Chemistry and C hemistry - challengeOrdered By: Dr. Katz on 06-27-2022 ALP [Catalytic activity/Vol] 175 U/L 45-117 [facility] ALT [Catalytic activity/Vol] 18 U/L 16-61 [facility] CO2 [Moles/Vol] 31.0 mmol/L 21.0-32.0 [facility] Globulin (S) [Mass/Vol] 3.7 g/dL 2.2-4.2 [facility] Urea nitrogen/Creatinine [Mass ratio] 17.7 mg/mg 10-20 [facility] Laboratory - Hematology and Cell countsOrdered By: Dr. Katz on 06-27-2022 Erythrocyte distribution width (RBC) [Entitic vol] 42.0 fL 35.1-43.9 [facility] Erythrocyte distribution width (RBC) [Ratio] 12.5 % 11.6-14.6 [facility] Immature granulocytes/100 WBC (Bld) 0.300 % 0.0-0.9 [facility] Comment on above: IG% - Immature Granu locytes (promyelocytes, myelocytes and metamyelocytes) > 1% indicates that a LEFT SHIFT is Present. MCH (RBC) [Entitic mass] 32.0 pg 27.0-32.0 [facility] Nucleated RBC/100 WBC (Bld) [Ratio] 0 % 0-5 [facility] Laboratory - Hematology and Cell countson 06-27-2022 HbA1c (Bld) [Mass fraction] 8.9 % 4.2-6.3 [facility] Laboratory - Microbiology an d Antimicrobial susceptibilityOrdered By: Dr. Katz on 06-27-2022 SARS-CoV-2 (COVID-19) RNA ANANTH+probe Ql (Unsp spec) Not detected Not Detect [facility] Comment on above: Normal Reference Ran ge: Not DetectedMethod:(RT-PCR) real-time reverse transcriptase PCRLuminex PRADIP Instrument*The Food and Drug Administration (FDA) has issued an Emergency Use Authorization (EAU) for the PRDAIP SARS-CoV-2 Assay for the rapid detection of the virus that causes COVID-19. This test has been validated, but the FDAs independent review of this validation is pending.*Negative results do not preclude infection and should not be used as the sole basis for treatment or patient management. Optimum specimen types and timing for peak viral levels during infections caused by SARS-CoV-2 have not been determined. Collection of multiple specimens from the same patient may be necessary to detect the virus. The possibility of a false negative result should be considered if the patient has clinical presentation or has had recent exposure. MCHC Auto (RBC) [Mass/Vol]Or dered By: Dr. Katz on 06-27-2022 MCHC (RBC) [Mass/Vol] 34.8 g/dL 32-36 [facility] No Panel InformationOrdered By: Dr. Katz on 06-27-2022 Estimated GFR (MDRD) Amer 86 mL/min >60 [facility] Comment on above: GFR Calc Estimated GFR (MDRD) Non-Af Amer 71 mL/min >60 [facility] Comment on above: Non- GFR Calc Platelets bldOrdered By: Dr. Katz on 06-27-2022 Platelets (Bld) [#/Vol] 367 10*3/uL 150-450 [facility] Serum or plasma albumin allyn urement (mass/volume)Ordered By: Dr. Katz on 06-27-2022 Albumin [Mass/Vol] 4.1 g/dL 3.2-5.0 [facility] Serum or plasma albumin/glob ulin mass ratioOrdered By: Dr. Katz on 06-27-2022 Albumin/Globulin [Mass ratio] 1.1 {ratio} 0.9-2.4 [facility] Serum or plasma calcium allyn urement (mass/volume)Ordered By: Dr. Katz on 06-27-2022 Calcium [Mass/Vol] 10.0 mg/dL 8.5-10.1 [facility] Serum or plasma creatinine m easurement (mass/volume)Ordered By: Dr. Katz on 06-27-2022 Creatinine [Mass/Vol] 1.24 mg/dL 0.70-1.30 [facility] Comment on above: The validity of the calculated GFR & GFRAA in patients over 70 years has not been determined. Clinical correlation is essential. Serum or plasma urea nitroge n measurement (mass/volume)Ordered By: Dr. Katz on 06-27-2022 Urea nitrogen [Mass/Vol] 22 mg/dL 7-18 [facility] Thin prep Papanicolaou smear with manual screeningOrdered By: Dr. Katz on 06-27-2022 Thin prep Papanicolaou smear with manual screening 15 U/L 15-37 [facility] Thin prep Papanicolaou smear with manual screening 8 5-15 [facility] .Auto Diffon 04-29-2018 Ammonia mass conc (P) 0.50 10 3/mcL Normal 0.09-1.40 [facility] ([place]) Comment on above: Performed By: #### C BC, ADIFF, ANEU, PHV, LIP, BHB, GFR, CMP, TROPI ####[address] [address] Basophils Auto #/vol (Bld) 0.00 10 3/mcL Normal 0.00-0.27 [facility] ([place]) Comment on above: Performed By: #### C BC, ADIFF, ANEU, PHV, LIP, BHB, GFR, CMP, TROPI ####[address] [address] Basophils/100 WBC Auto (Bld) 0.5 % Normal 0.0-2.5 [facility] ([place]) Comment on above: Performed By: #### C BC, ADIFF, ANEU, PHV, LIP, BHB, GFR, CMP, TROPI ####[address] [address] Eosinophils Auto #/vol (Bld) 0.00 10 3/mcL Normal 0.00-0.65 [facility] ([place]) Comment on above: Performed By: #### C BC, ADIFF, ANEU, PHV, LIP, BHB, GFR, CMP, TROPI ####[address] [address] Eosinophils/100 WBC Auto (Bld) 0.2 % Normal 0.0-6.0 [facility] ([place]) Comment on above: Performed By: #### C BC, ADIFF, ANEU, PHV, LIP, BHB, GFR, CMP, TROPI ####[address] [address] Lymphocytes Auto #/vol (Bld) 1.90 10 3/mcL Normal 0.90-4.32 [facility] ([place]) Comment on above: Performed By: #### C BC, ADIFF, ANEU, PHV, LIP, BHB, GFR, CMP, TROPI ####[address] [address] Lymphocytes/100 WBC Auto (Bld) 27.8 % Normal 20.0-40.0 [facility] ([place]) Comment on above: Performed By: #### C BC, ADIFF, ANEU, PHV, LIP, BHB, GFR, CMP, TROPI ####[address] [address] Monocytes/100 WBC Auto (Bld) 7.8 % Normal 2.0-13.0 [facility] ([place]) Comment on above: Performed By: #### C BC, ADIFF, ANEU, PHV, LIP, BHB, GFR, CMP, TROPI ####[address] [address] Neutrophils/100 WBC Auto (Bld) 63.7 % Normal 50.0-75.0 [facility] ([place]) Comment on above: Performed By: #### C BC, ADIFF, ANEU, PHV, LIP, BHB, GFR, CMP, TROPI ####[address] [address] .GFRon 04-29-2018 GFR Non- >60 Normal [facility] ([place]) Comment on above: Result Comment: GFR Population mean for , Non- Americans Ages 20-29 = 116 mL/min/1.73 sq.m. Ages 30-39 = 107 mL/min/1.73 sq.m. Ages 40-49 = 99 mL/min/1.73 sq.m. Ages 50-59 = 93 mL/min/1.73 sq.m. Ages 60-69 = 85 mL/min/1.73 sq.m. Ages 70+ = 75 mL/min/1.73 sq.m.Chronic Kidney Disease: Less than 60 mL/min/1.73 square metersEnd Stage Renal Disease: Less than 15 mL/min/1.73 square meters Performed By: #### C BC, ADIFF, ANEU, PHV, LIP, BHB, GFR, CMP, TROPI ####[address] [address] GFR >60 [facility] ([place] Comment on above: Result Comment: GFR Population mean for , Non- Americans Ages 20-29 = 116 mL/min/1.73 sq.m. Ages 30-39 = 107 mL/min/1.73 sq.m. Ages 40-49 = 99 mL/min/1.73 sq.m. Ages 50-59 = 93 mL/min/1.73 sq.m. Ages 60-69 = 85 mL/min/1.73 sq.m. Ages 70+ = 75 mL/min/1.73 sq.m.Chronic Kidney Disease: Less than 60 mL/min/1.73 square metersEnd Stage Renal Disease: Less than 15 mL/min/1.73 square meters Performed By: #### C BC, ADIFF, ANEU, PHV, LIP, BHB, GFR, CMP, TROPI ####[place] [address] .NEUABSon 04-29-2018 Neutrophil, Absolute 4.30 10 3/mcL Normal 2.25-8.10 A [facility] ([place]) Comment on above: Performed By: #### C BC, ADIFF, ANEU, PHV, LIP, BHB, GFR, CMP, TROPI ####[address] [address] BMPon 04-29-2018 Creatinine mass conc 0.76 mg/dL Normal 0.60-1.40 [facility] ([place] Comment on above: Performed By: #### C BC, ADIFF, ANEU, PHV, LIP, BHB, GFR, CMP, TROPI ####[place] [address] Urea nitrogen/Creatinine mass ratio 18.4 ratio Normal 10.0-22.0 [facility] ([place]) Comment on above: Performed By: #### C BC, ADIFF, ANEU, PHV, LIP, BHB, GFR, CMP, TROPI ####[place] [address] Calcium mass conc 8.3 mg/dL Low 8.4-10.1 [facility] ([place]) Comment on above: Performed By: #### C BC, ADIFF, ANEU, PHV, LIP, BHB, GFR, CMP, TROPI ####[place] [address] Chloride molar conc 113 mmol/L High 98-110 [facility] ([place]) Comment on above: Performed By: #### C BC, ADIFF, ANEU, PHV, LIP, BHB, GFR, CMP, TROPI ####[place] [address] CO2 molar conc 32 mmol/L Normal 22-32 [facility] ([place]) Comment on above: Performed By: #### C BC, ADIFF, ANEU, PHV, LIP, BHB, GFR, CMP, TROPI ####[place] [address] Electrolyte Balance 4.0 mEq/L Normal 4.0-15.0 [facility] ([place]) Comment on above: Performed By: #### C BC, ADIFF, ANEU, PHV, LIP, BHB, GFR, CMP, TROPI ####[place] [address] Glucose mass conc 55 mg/dL Low 70-110 [facility] ([place]) Comment on above: Performed By: #### C BC, ADIFF, ANEU, PHV, LIP, BHB, GFR, CMP, TROPI ####[place] [address] Potassium molar conc 3.9 mmol/L Normal 3.5-5.0 [facility] ([place] Comment on above: Performed By: #### C BC, ADIFF, ANEU, PHV, LIP, BHB, GFR, CMP, TROPI ####[place] [address] Sodium molar conc 149 mmol/L High 136-145 [facility] ([place]) Comment on above: Performed By: #### C BC, ADIFF, ANEU, PHV, LIP, BHB, GFR, CMP, TROPI ####[place] [address] Urea nitrogen mass conc 14.0 mg/dL Normal 8.0-22.0 A [facility] ([place]) Comment on above: Performed By: #### C BC, ADIFF, ANEU, PHV, LIP, BHB, GFR, CMP, TROPI ####[place] [address] CBCon 04-29-2018 Erythrocyte distribution width Auto Ratio (RBC) 13.0 % Normal 11.5-15.5 [facility] ([place]) Comment on above: Performed By: #### C BC, ADIFF, ANEU, PHV, LIP, BHB, GFR, CMP, TROPI ####[place] [address] Hematocrit Auto Volume Fraction (Bld) 38.8 % Low 40.0-52.0 [facility] ([place]) Comment on above: Performed By: #### C BC, ADIFF, ANEU, PHV, LIP, BHB, GFR, CMP, TROPI ####[place] [address] Hemoglobin mass conc (Bld) 13.4 G/dL Normal 13.0-17.5 [facility] ([place]) Comment on above: Performed By: #### C BC, ADIFF, ANEU, PHV, LIP, BHB, GFR, CMP, TROPI ####[place] [address] MCH Auto Entitic mass (RBC) 31.7 pg Normal 27.0-33.0 [facility] ([place]) Comment on above: Performed By: #### C BC, ADIFF, ANEU, PHV, LIP, BHB, GFR, CMP, TROPI ####[place] [address] MCHC Auto mass conc (RBC) 34.6 G/dL Normal 32.0-36.0 [facility] ([place]) Comment on above: Performed By: #### C BC, ADIFF, ANEU, PHV, LIP, BHB, GFR, CMP, TROPI ####[place] [address] MCV Auto Entitic volume (RBC) 91.5 fL Normal 81.0-100.0 [facility] ([place]) Comment on above: Performed By: #### C BC, ADIFF, ANEU, PHV, LIP, BHB, GFR, CMP, TROPI ####[place] [address] Platelet mean volume Auto Entitic volume (Bld) 8.1 fL Normal 6.4-10.5 [facility] ([place]) Comment on above: Performed By: #### C BC, ADIFF, ANEU, PHV, LIP, BHB, GFR, CMP, TROPI ####[place] [address] Platelets Auto #/vol (Bld) 233 10 3/mcL Normal 150-450 [facility] ([place]) Comment on above: Performed By: #### C BC, ADIFF, ANEU, PHV, LIP, BHB, GFR, CMP, TROPI ####[place] [address] RBC Auto #/vol (Bld) 4.24 10 6/mcL Low 4.50-6.00 A [facility] ([place]) Comment on above: Performed By: #### C BC, ADIFF, ANEU, PHV, LIP, BHB, GFR, CMP, TROPI ####[place] [address] WBC Auto #/vol (Bld) 6.80 10 3/mcL Normal 4.50-10.80 A [facility] ([place]) Comment on above: Performed By: #### C BC, ADIFF, ANEU, PHV, LIP, BHB, GFR, CMP, TROPI ####[place] [address] .Auto Diffon 04-28-2018 Ammonia mass conc (P) 1.00 10 3/mcL Normal 0.09-1.40 [facility] ([place]) Comment on above: Performed By: #### C BC, ADIFF, ANEU, PHV, LIP, BHB, GFR, CMP, TROPI ####[address] [address] Basophils Auto #/vol (Bld) 0.00 10 3/mcL Normal 0.00-0.27 [facility] ([place]) Comment on above: Performed By: #### C BC, ADIFF, ANEU, PHV, LIP, BHB, GFR, CMP, TROPI ####[address] [address] Basophils/100 WBC Auto (Bld) 0.3 % Normal 0.0-2.5 [facility] ([place]) Comment on above: Performed By: #### C BC, ADIFF, ANEU, PHV, LIP, BHB, GFR, CMP, TROPI ####[address] [address] Eosinophils Auto #/vol (Bld) 0.00 10 3/mcL Normal 0.00-0.65 [facility] ([place]) Comment on above: Performed By: #### C BC, ADIFF, ANEU, PHV, LIP, BHB, GFR, CMP, TROPI ####[address] [address] Eosinophils/100 WBC Auto (Bld) 0.0 % Normal 0.0-6.0 [facility] ([place]) Comment on above: Performed By: #### C BC, ADIFF, ANEU, PHV, LIP, BHB, GFR, CMP, TROPI ####[address] [address] Lymphocytes Auto #/vol (Bld) 1.40 10 3/mcL Normal 0.90-4.32 [facility] ([place]) Comment on above: Performed By: #### C BC, ADIFF, ANEU, PHV, LIP, BHB, GFR, CMP, TROPI ####[address] [address] Lymphocytes/100 WBC Auto (Bld) 10.0 % Low 20.0-40.0 [facility] ([place]) Comment on above: Performed By: #### C BC, ADIFF, ANEU, PHV, LIP, BHB, GFR, CMP, TROPI ####[address] [address] Monocytes/100 WBC Auto (Bld) 7.4 % Normal 2.0-13.0 [facility] ([place]) Comment on above: Performed By: #### C BC, ADIFF, ANEU, PHV, LIP, BHB, GFR, CMP, TROPI ####[address] [address] Neutrophils/100 WBC Auto (Bld) 82.3 % High 50.0-75.0 [facility] ([place]) Comment on above: Performed By: #### C BC, ADIFF, ANEU, PHV, LIP, BHB, GFR, CMP, TROPI ####[address] [address] .GFRon 04-28-2018 GFR Non- >60 Normal [facility] ([place]) Comment on above: Result Comment: GFR Population mean for , Non- Americans Ages 20-29 = 116 mL/min/1.73 sq.m. Ages 30-39 = 107 mL/min/1.73 sq.m. Ages 40-49 = 99 mL/min/1.73 sq.m. Ages 50-59 = 93 mL/min/1.73 sq.m. Ages 60-69 = 85 mL/min/1.73 sq.m. Ages 70+ = 75 mL/min/1.73 sq.m.Chronic Kidney Disease: Less than 60 mL/min/1.73 square metersEnd Stage Renal Disease: Less than 15 mL/min/1.73 square meters Performed By: #### C BC, ADIFF, ANEU, PHV, LIP, BHB, GFR, CMP, TROPI ####[address] [address] GFR >60 [facility] ([place] Comment on above: Result Comment: GFR Population mean for , Non- Americans Ages 20-29 = 116 mL/min/1.73 sq.m. Ages 30-39 = 107 mL/min/1.73 sq.m. Ages 40-49 = 99 mL/min/1.73 sq.m. Ages 50-59 = 93 mL/min/1.73 sq.m. Ages 60-69 = 85 mL/min/1.73 sq.m. Ages 70+ = 75 mL/min/1.73 sq.m.Chronic Kidney Disease: Less than 60 mL/min/1.73 square metersEnd Stage Renal Disease: Less than 15 mL/min/1.73 square meters Performed By: #### C BC, ADIFF, ANEU, PHV, LIP, BHB, GFR, CMP, TROPI ####[address] [address] GFR Non- >60 Normal [facility] ([place]) Comment on above: Result Comment: GFR Population mean for , Non- Americans Ages 20-29 = 116 mL/min/1.73 sq.m. Ages 30-39 = 107 mL/min/1.73 sq.m. Ages 40-49 = 99 mL/min/1.73 sq.m. Ages 50-59 = 93 mL/min/1.73 sq.m. Ages 60-69 = 85 mL/min/1.73 sq.m. Ages 70+ = 75 mL/min/1.73 sq.m.Chronic Kidney Disease: Less than 60 mL/min/1.73 square metersEnd Stage Renal Disease: Less than 15 mL/min/1.73 square meters Performed By: #### C BC, ADIFF, ANEU, PHV, LIP, BHB, GFR, CMP, TROPI ####[address] [address] GFR >60 [facility] ([place] Comment on above: Result Comment: GFR Population mean for , Non- Americans Ages 20-29 = 116 mL/min/1.73 sq.m. Ages 30-39 = 107 mL/min/1.73 sq.m. Ages 40-49 = 99 mL/min/1.73 sq.m. Ages 50-59 = 93 mL/min/1.73 sq.m. Ages 60-69 = 85 mL/min/1.73 sq.m. Ages 70+ = 75 mL/min/1.73 sq.m.Chronic Kidney Disease: Less than 60 mL/min/1.73 square metersEnd Stage Renal Disease: Less than 15 mL/min/1.73 square meters Performed By: #### C BC, ADIFF, ANEU, PHV, LIP, BHB, GFR, CMP, TROPI ####[place] [address] .NEUABSon 04-28-2018 Neutrophil, Absolute 11.60 10 3/mcL High 2.25-8.10 [facility] ([place]) Comment on above: Performed By: #### C BC, ADIFF, ANEU, PHV, LIP, BHB, GFR, CMP, TROPI ####[place] [address] A1Con 04-28-2018 Hemoglobin A1c/Hemoglobin.total mass fraction (Bld) 10.6 % High 4.0-6.0 [facility] ([place]) Comment on above: Performed By: #### C BC, ADIFF, ANEU, PHV, LIP, BHB, GFR, CMP, TROPI ####[place] [address] BMPon 04-28-2018 Calcium mass conc 9.3 mg/dL Normal 8.4-10.1 [facility] ([place]) Comment on above: Performed By: #### C BC, ADIFF, ANEU, PHV, LIP, BHB, GFR, CMP, TROPI ####[place] [address] Glucose mass conc 528 mg/dL Critically abnormal 70-110 [facility] ([place]) Comment on above: Performed By: #### C BC, ADIFF, ANEU, PHV, LIP, BHB, GFR, CMP, TROPI ####[place] [address] Chloride molar conc 101 mmol/L Normal 98-110 [facility] ([place]) Comment on above: Performed By: #### C BC, ADIFF, ANEU, PHV, LIP, BHB, GFR, CMP, TROPI ####[place] [address] CO2 molar conc 29 mmol/L Normal 22-32 [facility] ([place]) Comment on above: Performed By: #### C BC, ADIFF, ANEU, PHV, LIP, BHB, GFR, CMP, TROPI ####[address] [address] Creatinine mass conc 1.08 mg/dL Normal 0.60-1.40 [facility] ([place] Comment on above: Performed By: #### C BC, ADIFF, ANEU, PHV, LIP, BHB, GFR, CMP, TROPI ####[address] [address] Electrolyte Balance 15.0 mEq/L Normal 4.0-15.0 [facility] ([place]) Comment on above: Performed By: #### C BC, ADIFF, ANEU, PHV, LIP, BHB, GFR, CMP, TROPI ####[place] [address] Potassium molar conc 4.3 mmol/L Normal 3.5-5.0 [facility] ([place] Comment on above: Performed By: #### C BC, ADIFF, ANEU, PHV, LIP, BHB, GFR, CMP, TROPI ####[place] [address] Sodium molar conc 145 mmol/L Normal 136-145 [facility] ([place]) Comment on above: Performed By: #### C BC, ADIFF, ANEU, PHV, LIP, BHB, GFR, CMP, TROPI ####[place] [address] Urea nitrogen mass conc 32.0 mg/dL High 8.0-22.0 [facility] ([place]) Comment on above: Performed By: #### C BC, ADIFF, ANEU, PHV, LIP, BHB, GFR, CMP, TROPI ####[place] [id number] Urea nitrogen/Creatinine mass ratio 29.6 ratio High 10.0-22.0 [facility] ([place]) Comment on above: Performed By: #### C BC, ADIFF, ANEU, PHV, LIP, BHB, GFR, CMP, TROPI ####[place] [address] CBCon 04-28-2018 Erythrocyte distribution width Auto Ratio (RBC) 13.2 % Normal 11.5-15.5 [facility] ([place]) Comment on above: Performed By: #### C BC, ADIFF, ANEU, PHV, LIP, BHB, GFR, CMP, TROPI ####[place] [address] Hematocrit Auto Volume Fraction (Bld) 43.4 % Normal 40.0-52.0 [facility] ([place]) Comment on above: Performed By: #### C BC, ADIFF, ANEU, PHV, LIP, BHB, GFR, CMP, TROPI ####[place] [address] Hemoglobin mass conc (Bld) 15.2 G/dL Normal 13.0-17.5 [facility] ([place]) Comment on above: Performed By: #### C BC, ADIFF, ANEU, PHV, LIP, BHB, GFR, CMP, TROPI ####[place] [address] MCH Auto Entitic mass (RBC) 31.3 pg Normal 27.0-33.0 [facility] ([place]) Comment on above: Performed By: #### C BC, ADIFF, ANEU, PHV, LIP, BHB, GFR, CMP, TROPI ####[place] [address] MCHC Auto mass conc (RBC) 35.0 G/dL Normal 32.0-36.0 [facility] ([place]) Comment on above: Performed By: #### C BC, ADIFF, ANEU, PHV, LIP, BHB, GFR, CMP, TROPI ####[place] [address] MCV Auto Entitic volume (RBC) 89.6 fL Normal 81.0-100.0 [facility] ([place]) Comment on above: Performed By: #### C BC, ADIFF, ANEU, PHV, LIP, BHB, GFR, CMP, TROPI ####[place] [address] Platelet mean volume Auto Entitic volume (Bld) 8.1 fL Normal 6.4-10.5 [facility] ([place]) Comment on above: Performed By: #### C BC, ADIFF, ANEU, PHV, LIP, BHB, GFR, CMP, TROPI ####[place] [address] Platelets Auto #/vol (Bld) 340 10 3/mcL Normal 150-450 [facility] ([place]) Comment on above: Performed By: #### C BC, ADIFF, ANEU, PHV, LIP, BHB, GFR, CMP, TROPI ####[place] [address] RBC Auto #/vol (Bld) 4.84 10 6/mcL Normal 4.50-6.00 A [facility] ([place]) Comment on above: Performed By: #### C BC, ADIFF, ANEU, PHV, LIP, BHB, GFR, CMP, TROPI ####[place] [address] WBC Auto #/vol (Bld) 14.00 10 3/mcL High 4.50-10.80 [facility] ([place]) Comment on above: Performed By: #### C BC, ADIFF, ANEU, PHV, LIP, BHB, GFR, CMP, TROPI ####[place] [address] CMPon 04-28-2018 Albumin/Globulin mass ratio 1.4 {ratio} Normal 0.9-1.6 [facility] ([place]) Comment on above: Performed By: #### C BC, ADIFF, ANEU, PHV, LIP, BHB, GFR, CMP, TROPI ####[place] [address] ALP enzyme act/vol 115 U/L Normal 38-126 [facility] ([place]) Comment on above: Performed By: #### C BC, ADIFF, ANEU, PHV, LIP, BHB, GFR, CMP, TROPI ####[place] [address] ALT enzyme act/vol 13 U/L Normal 12-55 [facility] ([place]) Comment on above: Performed By: #### C BC, ADIFF, ANEU, PHV, LIP, BHB, GFR, CMP, TROPI ####[address] [address] Bili Total 1.7 mg/dL High 0.2-1.2 [facility] ([place]) Comment on above: Performed By: #### C BC, ADIFF, ANEU, PHV, LIP, BHB, GFR, CMP, TROPI ####[address] [address] Creatinine mass conc 0.87 mg/dL Normal 0.60-1.40 [facility] ([place] Comment on above: Performed By: #### C BC, ADIFF, ANEU, PHV, LIP, BHB, GFR, CMP, TROPI ####[address] [address] Globulin Calculated mass conc (S) 2.9 G/dL Normal 1.5-3.8 [facility] ([place]) Comment on above: Performed By: #### C BC, ADIFF, ANEU, PHV, LIP, BHB, GFR, CMP, TROPI ####[place] [address] Protein mass conc 6.9 G/dL Normal 6.0-8.5 [facility] ([place]) Comment on above: Performed By: #### C BC, ADIFF, ANEU, PHV, LIP, BHB, GFR, CMP, TROPI ####[place] [address] Urea nitrogen/Creatinine mass ratio 33.3 ratio High 10.0-22.0 [facility] ([place]) Comment on above: Performed By: #### C BC, ADIFF, ANEU, PHV, LIP, BHB, GFR, CMP, TROPI ####[place] [address] Albumin mass conc 4.0 G/dL Normal 3.2-4.8 [facility] ([place]) Comment on above: Performed By: #### C BC, ADIFF, ANEU, PHV, LIP, BHB, GFR, CMP, TROPI ####[address] [address] AST enzyme act/vol 8 U/L Normal 8-34 [facility] ([place]) Comment on above: Performed By: #### C BC, ADIFF, ANEU, PHV, LIP, BHB, GFR, CMP, TROPI ####[place] [address] Calcium mass conc 9.3 mg/dL Normal 8.4-10.1 [facility] ([place]) Comment on above: Performed By: #### C BC, ADIFF, ANEU, PHV, LIP, BHB, GFR, CMP, TROPI ####[address] [address] Chloride molar conc 107 mmol/L Normal 98-110 [facility] ([place]) Comment on above: Performed By: #### C BC, ADIFF, ANEU, PHV, LIP, BHB, GFR, CMP, TROPI ####[place] [address] CO2 molar conc 32 mmol/L Normal 22-32 [facility] ([place]) Comment on above: Performed By: #### C BC, ADIFF, ANEU, PHV, LIP, BHB, GFR, CMP, TROPI ####[address] [address] Electrolyte Balance 9.0 mEq/L Normal 4.0-15.0 [facility] ([place]) Comment on above: Performed By: #### C BC, ADIFF, ANEU, PHV, LIP, BHB, GFR, CMP, TROPI ####[address] [address] Glucose mass conc 262 mg/dL High 70-110 [facility] ([place]) Comment on above: Performed By: #### C BC, ADIFF, ANEU, PHV, LIP, BHB, GFR, CMP, TROPI ####[place] [address] Potassium molar conc 4.0 mmol/L Normal 3.5-5.0 [facility] ([place] Comment on above: Performed By: #### C BC, ADIFF, ANEU, PHV, LIP, BHB, GFR, CMP, TROPI ####[place] [address] Sodium molar conc 148 mmol/L High 136-145 [facility] ([place]) Comment on above: Performed By: #### C BC, ADIFF, ANEU, PHV, LIP, BHB, GFR, CMP, TROPI ####[place] [address] Urea nitrogen mass conc 29.0 mg/dL High 8.0-22.0 A [facility] ([place]) Comment on above: Performed By: #### C BC, ADIFF, ANEU, PHV, LIP, BHB, GFR, CMP, TROPI ####[place] [address] GGTon 04-28-2018 Gamma GT 33 U/L Normal 15-85 [facility] ([place]) Comment on above: Performed By: #### C BC, ADIFF, ANEU, PHV, LIP, BHB, GFR, CMP, TROPI ####[place] [address] .Auto Diffon 04-27-2018 Ammonia mass conc (P) 0.80 10 3/mcL Normal 0.09-1.40 [facility] ([place]) Comment on above: Performed By: #### C BC, ADIFF, ANEU, PHV, LIP, BHB, GFR, CMP, TROPI ####[place] [address] Basophils Auto #/vol (Bld) 0.00 10 3/mcL Normal 0.00-0.27 [facility] ([place]) Comment on above: Performed By: #### C BC, ADIFF, ANEU, PHV, LIP, BHB, GFR, CMP, TROPI ####[place] [address] Basophils/100 WBC Auto (Bld) 0.2 % Normal 0.0-2.5 [facility] ([place]) Comment on above: Performed By: #### C BC, ADIFF, ANEU, PHV, LIP, BHB, GFR, CMP, TROPI ####[address] [address] Eosinophils Auto #/vol (Bld) 0.00 10 3/mcL Normal 0.00-0.65 [facility] ([place]) Comment on above: Performed By: #### C BC, ADIFF, ANEU, PHV, LIP, BHB, GFR, CMP, TROPI ####[address] [address] Eosinophils/100 WBC Auto (Bld) 0.0 % Normal 0.0-6.0 [facility] ([place]) Comment on above: Performed By: #### C BC, ADIFF, ANEU, PHV, LIP, BHB, GFR, CMP, TROPI ####[address] [address] Lymphocytes Auto #/vol (Bld) 0.90 10 3/mcL Normal 0.90-4.32 [facility] ([place]) Comment on above: Performed By: #### C BC, ADIFF, ANEU, PHV, LIP, BHB, GFR, CMP, TROPI ####[address] [address] Lymphocytes/100 WBC Auto (Bld) 5.7 % Low 20.0-40.0 [facility] ([place]) Comment on above: Performed By: #### C BC, ADIFF, ANEU, PHV, LIP, BHB, GFR, CMP, TROPI ####[address] [address] Monocytes/100 WBC Auto (Bld) 4.6 % Normal 2.0-13.0 [facility] ([place]) Comment on above: Performed By: #### C BC, ADIFF, ANEU, PHV, LIP, BHB, GFR, CMP, TROPI ####[address] [address] Neutrophils/100 WBC Auto (Bld) 89.5 % High 50.0-75.0 [facility] ([place]) Comment on above: Performed By: #### C BC, ADIFF, ANEU, PHV, LIP, BHB, GFR, CMP, TROPI ####[address] [address] .GFRon 04-27-2018 GFR Non- 51 ml/min/1.73sqm Normal [facility] ([place]) Comment on above: Result Comment: GFR Population mean for , Non- Americans Ages 20-29 = 116 mL/min/1.73 sq.m. Ages 30-39 = 107 mL/min/1.73 sq.m. Ages 40-49 = 99 mL/min/1.73 sq.m. Ages 50-59 = 93 mL/min/1.73 sq.m. Ages 60-69 = 85 mL/min/1.73 sq.m. Ages 70+ = 75 mL/min/1.73 sq.m.Chronic Kidney Disease: Less than 60 mL/min/1.73 square metersEnd Stage Renal Disease: Less than 15 mL/min/1.73 square meters Performed By: #### C BC, ADIFF, ANEU, PHV, LIP, BHB, GFR, CMP, TROPI ####[place] [id number] GFR >60 Normal [facility] ([place] Comment on above: Result Comment: GFR Population mean for , Non- Americans Ages 20-29 = 116 mL/min/1.73 sq.m. Ages 30-39 = 107 mL/min/1.73 sq.m. Ages 40-49 = 99 mL/min/1.73 sq.m. Ages 50-59 = 93 mL/min/1.73 sq.m. Ages 60-69 = 85 mL/min/1.73 sq.m. Ages 70+ = 75 mL/min/1.73 sq.m.Chronic Kidney Disease: Less than 60 mL/min/1.73 square metersEnd Stage Renal Disease: Less than 15 mL/min/1.73 square meters Performed By: #### C BC, ADIFF, ANEU, PHV, LIP, BHB, GFR, CMP, TROPI ####[address] [address] .NEUABSon 04-27-2018 Neutrophil, Absolute 14.70 10 3/mcL High 2.25-8.10 [facility] ([place]) Comment on above: Performed By: #### C BC, ADIFF, ANEU, PHV, LIP, BHB, GFR, CMP, TROPI ####[place] [address] BHBon 04-27-2018 B-Hydroxybutyrate 3.01 mg/dL High 0.20-2.81 [facility] ([place]) Comment on above: Performed By: #### C BC, ADIFF, ANEU, PHV, LIP, BHB, GFR, CMP, TROPI ####[place] [address] CBCon 04-27-2018 Erythrocyte distribution width Auto Ratio (RBC) 13.2 % Normal 11.5-15.5 [facility] ([place]) Comment on above: Performed By: #### C BC, ADIFF, ANEU, PHV, LIP, BHB, GFR, CMP, TROPI ####[place] [address] Hematocrit Auto Volume Fraction (Bld) 54.5 % High 40.0-52.0 [facility] ([place]) Comment on above: Performed By: #### C BC, ADIFF, ANEU, PHV, LIP, BHB, GFR, CMP, TROPI ####[place] [address] Hemoglobin mass conc (Bld) 18.9 G/dL High 13.0-17.5 [facility] ([place]) Comment on above: Performed By: #### C BC, ADIFF, ANEU, PHV, LIP, BHB, GFR, CMP, TROPI ####[place] [address] MCH Auto Entitic mass (RBC) 31.3 pg Normal 27.0-33.0 [facility] ([place]) Comment on above: Performed By: #### C BC, ADIFF, ANEU, PHV, LIP, BHB, GFR, CMP, TROPI ####[place] [address] MCHC Auto mass conc (RBC) 34.6 G/dL Normal 32.0-36.0 [facility] ([place]) Comment on above: Performed By: #### C BC, ADIFF, ANEU, PHV, LIP, BHB, GFR, CMP, TROPI ####[place] [address] MCV Auto Entitic volume (RBC) 90.4 fL Normal 81.0-100.0 [facility] ([place]) Comment on above: Performed By: #### C BC, ADIFF, ANEU, PHV, LIP, BHB, GFR, CMP, TROPI ####[place] [address] Platelet mean volume Auto Entitic volume (Bld) 8.1 fL Normal 6.4-10.5 [facility] ([place]) Comment on above: Performed By: #### C BC, ADIFF, ANEU, PHV, LIP, BHB, GFR, CMP, TROPI ####[place] [address] Platelets Auto #/vol (Bld) 511 10 3/mcL High 150-450 [facility] ([place]) Comment on above: Performed By: #### C BC, ADIFF, ANEU, PHV, LIP, BHB, GFR, CMP, TROPI ####[place] [address] RBC Auto #/vol (Bld) 6.03 10 6/mcL High 4.50-6.00 A [facility] ([place]) Comment on above: Performed By: #### C BC, ADIFF, ANEU, PHV, LIP, BHB, GFR, CMP, TROPI ####[place] [address] WBC Auto #/vol (Bld) 16.40 10 3/mcL High 4.50-10.80 [facility] ([place]) Comment on above: Performed By: #### C BC, ADIFF, ANEU, PHV, LIP, BHB, GFR, CMP, TROPI ####[place] [address] CMPon 04-27-2018 Glucose mass conc 596 mg/dL Critically abnormal 70-110 [facility] ([place]) Comment on above: Performed By: #### C BC, ADIFF, ANEU, PHV, LIP, BHB, GFR, CMP, TROPI ####[place] [address] Albumin/Globulin mass ratio 1.2 {ratio} Normal 0.9-1.6 [facility] ([place]) Comment on above: Performed By: #### C BC, ADIFF, ANEU, PHV, LIP, BHB, GFR, CMP, TROPI ####[place] [address] ALP enzyme act/vol 172 U/L High 38-126 [facility] ([place]) Comment on above: Performed By: #### C BC, ADIFF, ANEU, PHV, LIP, BHB, GFR, CMP, TROPI ####[place] [address] AST enzyme act/vol 7 U/L Low 8-34 [facility] ([place]) Comment on above: Performed By: #### C BC, ADIFF, ANEU, PHV, LIP, BHB, GFR, CMP, TROPI ####[place] [address] Bili Total 2.0 mg/dL High 0.2-1.2 [facility] ([place]) Comment on above: Performed By: #### C BC, ADIFF, ANEU, PHV, LIP, BHB, GFR, CMP, TROPI ####[place] [address] Creatinine mass conc 1.60 mg/dL High 0.60-1.40 [facility] ([place] Comment on above: Performed By: #### C BC, ADIFF, ANEU, PHV, LIP, BHB, GFR, CMP, TROPI ####[place] [address] Globulin Calculated mass conc (S) 4.6 G/dL High 1.5-3.8 [facility] ([place]) Comment on above: Performed By: #### C BC, ADIFF, ANEU, PHV, LIP, BHB, GFR, CMP, TROPI ####[place] [address] Protein mass conc 10.2 G/dL High 6.0-8.5 [facility] ([place]) Comment on above: Performed By: #### C BC, ADIFF, ANEU, PHV, LIP, BHB, GFR, CMP, TROPI ####[place] [address] Urea nitrogen/Creatinine mass ratio 25.0 ratio High 10.0-22.0 [facility] ([place]) Comment on above: Performed By: #### C BC, ADIFF, ANEU, PHV, LIP, BHB, GFR, CMP, TROPI ####[place] [address] Albumin mass conc 5.6 G/dL High 3.2-4.8 [facility] ([place]) Comment on above: Performed By: #### C BC, ADIFF, ANEU, PHV, LIP, BHB, GFR, CMP, TROPI ####[place] [address] ALT enzyme act/vol 16 U/L Normal 12-55 [facility] ([place] Comment on above: Performed By: #### C BC, ADIFF, ANEU, PHV, LIP, BHB, GFR, CMP, TROPI ####[place] [address] Calcium mass conc 10.8 mg/dL High 8.4-10.1 [facility] ([place]) Comment on above: Performed By: #### C BC, ADIFF, ANEU, PHV, LIP, BHB, GFR, CMP, TROPI ####[place] [address] Chloride molar conc 92 mmol/L Low 98-110 [facility] ([place]) Comment on above: Performed By: #### C BC, ADIFF, ANEU, PHV, LIP, BHB, GFR, CMP, TROPI ####[place] [address] CO2 molar conc 34 mmol/L High 22-32 [facility] ([place]) Comment on above: Performed By: #### C BC, ADIFF, ANEU, PHV, LIP, BHB, GFR, CMP, TROPI ####[place] [address] Electrolyte Balance 14.0 mEq/L Normal 4.0-15.0 [facility] ([place]) Comment on above: Performed By: #### C BC, ADIFF, ANEU, PHV, LIP, BHB, GFR, CMP, TROPI ####[place] [address] Potassium molar conc 3.9 mmol/L Normal 3.5-5.0 [facility] [place] Comment on above: Performed By: #### C BC, ADIFF, ANEU, PHV, LIP, BHB, GFR, CMP, TROPI ####[place] [address] Sodium molar conc 140 mmol/L Normal 136-145 [facility] ([place]) Comment on above: Performed By: #### C BC, ADIFF, ANEU, PHV, LIP, BHB, GFR, CMP, TROPI ####[place] [address] Urea nitrogen mass conc 40.0 mg/dL High 8.0-22.0 [facility] ([place]) Comment on above: Performed By: #### C BC, ADIFF, ANEU, PHV, LIP, BHB, GFR, CMP, TROPI ####[place] [address] LIPon 04-27-2018 Lipase Level 113 U/L Normal 73-393 [facility] ([place]) Comment on above: Performed By: #### C BC, ADIFF, ANEU, PHV, LIP, BHB, GFR, CMP, TROPI ####[place] [address] PHVon 04-27-2018 pH Venous 7.402 Normal 7.380-7.46 0 [facility] ([place]) Comment on above: Performed By: #### C BC, ADIFF, ANEU, PHV, LIP, BHB, GFR, CMP, TROPI ####[place] [address] TROPIon 04-27-2018 Troponin I.cardiac mass conc ng/mL Normal 0.000-0.04 0 [facility] ([place]) Comment on above: Result Comment: Trop onin I reference ranges (02/28/14): 0.00-0.040 ng/mL Negative and non-diagnostic. >0.040 ng/mL Consistent with cardiac damage, increased clinical risk and possibility of myocardial infarction. Serial measurements, a rise & fall in test results, clinical history, appropriate symptoms and/or ECG changes may help assess possibility of [place]. *Other non-acute coronary syndrome conditions such as CHF, myocarditis, pulmonary emboli, sepsis and cardiac surgery could result in myocardial damage and increased troponin levels. Performed By: #### C BC, ADIFF, ANEU, PHV, LIP, BHB, GFR, CMP, TROPI ####[place] [address] UAon 04-27-2018 Color Nom (U) Yellow Normal [facility] ([place]) Comment on above: Performed By: #### C BC, ADIFF, ANEU, PHV, LIP, BHB, GFR, CMP, TROPI ####[place] [address] Glucose mass conc (U) mg/dL Invalid Interpretation Code Negative [facility] ([place]) Comment on above: Performed By: #### C BC, ADIFF, ANEU, PHV, LIP, BHB, GFR, CMP, TROPI ####[place] [address] Ketones Ql (U) 15 mg/dL Invalid Interpretation Code Neg-Trace [facility] ([place]) Comment on above: Performed By: #### C BC, ADIFF, ANEU, PHV, LIP, BHB, GFR, CMP, TROPI ####[place] [address] UA Appear Clear Normal [facility] ([place]) Comment on above: Performed By: #### C BC, ADIFF, ANEU, PHV, LIP, BHB, GFR, CMP, TROPI ####[place] [address] UA Blood Negative Normal Neg-Trace [facility] ([place]) Comment on above: Performed By: #### C BC, ADIFF, ANEU, PHV, LIP, BHB, GFR, CMP, TROPI ####[address] [address] UA Leuk Est Negative Normal Negative [facility] ([place]) Comment on above: Performed By: #### C BC, ADIFF, ANEU, PHV, LIP, BHB, GFR, CMP, TROPI ####[address] [address] UA Nitrite Negative Normal Negative [facility] ([place]) Comment on above: Performed By: #### C BC, ADIFF, ANEU, PHV, LIP, BHB, GFR, CMP, TROPI ####[address] [address] UA pH 5.0 Normal 5.0 - 8.0 [facility] ([place]) Comment on above: Performed By: #### C BC, ADIFF, ANEU, PHV, LIP, BHB, GFR, CMP, TROPI ####[address] [address] UA Protein Negative Normal Negative [facility] ([place]) Comment on above: Performed By: #### C BC, ADIFF, ANEU, PHV, LIP, BHB, GFR, CMP, TROPI ####[address] [address] UA Spec Grav 1.010 Invalid Interpretation Code [facility] ([place]) Comment on above: Performed By: #### C BC, ADIFF, ANEU, PHV, LIP, BHB, GFR, CMP, TROPI ####[address] [address] UA Specimen Type Clean Catch [facility] ([place]) Comment on above: Performed By: #### C BC, ADIFF, ANEU, PHV, LIP, BHB, GFR, CMP, TROPI ####[address] [address] UA Urobilinogen 0.2 E.U./dL Normal [facility] ([place]) Comment on above: Performed By: #### C BC, ADIFF, ANEU, PHV, LIP, BHB, GFR, CMP, TROPI ####[facility], [place] [place] [id number] Urobilinogen Test strip Qn (U) Negative Normal Neg-Trace [facility] ([place]) Comment on above: Performed By: #### C BC, ADIFF, ANEU, PHV, LIP, BHB, GFR, CMP, TROPI ####[facility] [place] [place] [id number] US ABDOMEN LIMITEDon 018 US ABDOMEN LIMITED ORIGINALLimited ultrasound of the abdomen HISTORY: RIGHT upper quadrant pain COMPARISON: None Visible portions of the pancreas are normal. The gallbladder is well distended. No stones, sludge, wall thickening or adjacent fluid seen. Negative sonographic Erwin's sign. No central biliary dilatation or hepatic mass is evident. The common duct is normal in caliber. No additional contributory finding. IMPRESSION: No acute process. Interpreted By: Ez Rodriguesreliminary Report By: Ez Rodrigues MDElectronically Signed By: Ez Rodrigues MD Dictated Date: 04/27/2018 5:00:26 PM Prelim Date: 04/27/2018 5:00:26 PM Sign Date: 04/27/2018 5:14:11 PM Normal [facility] ([place]) XR CHEST 1 VIEWon 04-27-2018 WBC Auto #/vol (Bld) ORIGINALXR CHEST 1 VIEW at 3:31 PM CLINICAL STATEMENT: diabetes, elevated white blood cell count COMPARISON: None FINDINGS:The patient is in a lordotic position. The heart is normal in size. No vascular congestion, pneumothorax, focal consolidation or pleural effusion is seen. IMPRESSION:No acute process identified. Interpreted By: Azeb Valdes MDPreliminary Report By: Azeb Valdes MDElectronically Signed By: Azeb Valdes MD Dictated Date: 04/27/2018 3:42:02 PM Prelim Date: 04/27/2018 3:42:02 PM Sign Date: 04/27/2018 3:43:24 PM Normal [facility] ([place]) Office Visit: Diabetes Follo w Upon 04-24-2017 Documentation of current medications (procedure) Done Invalid Interpretation Code [facility] Work Phone: Office Visiton 04-08-2017 Protein mass conc Done Invalid Interpretation Code [facility] Work Phone: Office Visiton 01-16-2017 Protein mass conc Done [facility] Work Phone: Office Visit: Diabetes follo w upon 10-17-2016 Documentation of current medications (procedure) Done Invalid Interpretation Code [facility] Work Phone: Fall risk assessment No Invalid Interpretation Code [facility] Work Phone: Protein mass conc yes Invalid Interpretation Code [facility] Work Phone: Protein mass conc Done [facility] [employer] [facility] Work Phone: Smoking cessation education (procedure) yes Invalid Interpretation Code [facility] Work Phone: Tobacco smoking status NHIS Never Invalid Interpretation Code [facility] Work Phone: Tobacco smoking status NHIS Current every day smoker Invalid Interpretation Code [facility] Work Phone: Tobacco use [facility] Current every day smoker Invalid Interpretation Code [facility] Work Phone: Office Visit: Transition of careon 08-01-2016 Adolescent depression screening assessment Adolescent depression screening assessment Invalid Interpretation Code [facility] Work Phone: Adult depression screening assessment Adult depression screening assessment Invalid Interpretation Code [facility] Work Phone: Adult depression screening assessment Adolescent depression screening assessment [facility] [facility] Work Phone: PHQ-9 quick depression assessment panel [Reported.PHQ] Adult depression screening assessment Invalid Interpretation Code [facility] Work Phone: Chart Maintenanceon 06-23-19 17 Hemoglobin A1c/Hemoglobin.total mass fraction (Bld) 8.9 % Invalid Interpretation Code [facility] Work Phone: Vital Signs Date Time Vital Sign Value Performing Clinician Facility 04-06-2025 09:48-0400 Body height 165.[address] Alfred Katz MD Work Phone: [facility] 04-06-2025 09:48-0400 Body mass index (BMI) [Ratio] 23.8 kg/m2 Dr. Alfred Katz MD Work Phone: [facility] 04-06-2025 09:48-0400 Body weight 64.[address] Alfred Katz MD Work Phone: [facility] 04-06-2025 09:48-0400 Diastolic blood pressure 84 mm[Hg] Dr. Alfred Katz MD Work Phone: [facility] 04-06-2025 09:48-0400 Heart rate 76 /min Dr. Alfred Katz MD Work Phone: [facility] 04-06-2025 09:48-0400 SaO2% (BldA) [Mass fraction] 98 % Dr. Alfred Katz MD Work Phone: [facility] 04-06-2025 09:48-0400 Systolic blood pressure 128 mm[Hg] Dr. Alfred Katz MD Work Phone: [facility] 03-09-2025 10:26-0400 Body height 170.[address] Alfred Katz MD Work Phone: [facility] 03-09-2025 10:26-0400 Body mass index (BMI) [Ratio] 21.7 kg/m2 Dr. Alfred Katz MD Work Phone: [facility] 03-09-2025 10:26-0400 Body temperature 97.4 [degF] Dr. Alfred Katz MD Work Phone: [facility] 03-09-2025 10:26-0400 Body weight 62.[address] Alfred Katz MD Work Phone: [facility] 03-09-2025 10:26-0400 Diastolic blood pressure 72 mm[Hg] Dr. Alfred Katz MD Work Phone: [facility] 03-09-2025 10:26-0400 Heart rate 93 /min Dr. Alfred Katz MD Work Phone: [facility] 03-09-2025 10:26-0400 Respiratory rate 16 /min Dr. Alfred Katz MD Work Phone: [facility] 03-09-2025 10:26-0400 SaO2% (BldA) [Mass fraction] 98 % Dr. Alfred Katz MD Work Phone: [facility] 03-09-2025 10:26-0400 Systolic blood pressure 128 mm[Hg] Dr. Alfred Katz MD Work Phone: [facility] 11-04-2024 20:01-0400 Body temperature 97.7 [degF] Dr. Alfred Katz MD Work Phone: [facility] 11-04-2024 20:01-0400 Diastolic blood pressure 77 mm[Hg] Dr. Alfred Katz MD Work Phone: [facility] 11-04-2024 20:01-0400 Heart rate 81 /min Dr. Alfred Katz MD Work Phone: [facility] 11-04-2024 20:01-0400 Respiratory rate 18 /min Dr. Alfred Katz MD Work Phone: [facility] 11-04-2024 20:01-0400 SaO2% (BldA) [Mass fraction] 97 % Dr. Alfred Katz MD Work Phone: [facility] 11-04-2024 20:01-0400 Systolic blood pressure 106 mm[Hg] Dr. Alfred Katz MD Work Phone: [facility] 11-04-2024 15:15-0400 Body mass index (BMI) [Ratio] 21.4 kg/m2 Dr. Alfred Katz MD Work Phone: [facility] 11-04-2024 15:15-0400 Body weight 62.[address] Alfred Katz MD Work Phone: [facility] 11-04-2024 14:02-0400 Body height 170.[address] Alfred Katz MD Work Phone: [facility] 10-27-2024 13:38-0400 Body height 170.[address] Alfred Ktaz MD Work Phone: [facility] 10-27-2024 13:38-0400 Body mass index (BMI) [Ratio] 21.4 kg/m2 Dr. Alfred Katz MD Work Phone: [facility] 10-27-2024 13:38-0400 Body temperature 98.5 [degF] Dr. Alfred Katz MD Work Phone: [facility] 10-27-2024 13:38-0400 Body weight 62.[address] Alfred Katz MD Work Phone: [facility] 10-27-2024 13:38-0400 Diastolic blood pressure 78 mm[Hg] Dr. Alfred Katz MD Work Phone: [facility] 10-27-2024 13:38-0400 Heart rate 106 /min Dr. Alfred Katz MD Work Phone: [facility] 10-27-2024 13:38-0400 Respiratory rate 18 /min Dr. Alfred Katz MD Work Phone: [facility] 10-27-2024 13:38-0400 SaO2% (BldA) [Mass fraction] 97 % Dr. Alfred Katz MD Work Phone: [facility] 10-27-2024 13:38-0400 Systolic blood pressure 128 mm[Hg] Dr. Alfred Katz MD Work Phone: [facility] 10-19-2024 10:46-0400 Body mass index (BMI) [Ratio] 21.5 kg/m2 Dr. Alfred Katz MD Work Phone: [facility] 10-19-2024 10:46-0400 Body weight 62.[address] Alfred Katz MD Work Phone: [facility] 09-09-2024 14:55-0400 Body mass index (BMI) [Ratio] 22.1 kg/m2 Dr. Alfred Katz MD Work Phone: [facility] 09-09-2024 14:55-0400 Body temperature 98.2 [degF] Dr. Alfred Katz MD Work Phone: [facility] 09-09-2024 14:55-0400 Body weight 63.[address] Alfred Katz MD Work Phone: [facility] 09-09-2024 14:55-0400 Diastolic blood pressure 90 mm[Hg] Dr. Alfred Katz MD Work Phone: [facility] 09-09-2024 14:55-0400 Heart rate 90 /min Dr. Alfred Katz MD Work Phone: [facility] 09-09-2024 14:55-0400 Respiratory rate 18 /min Dr. Alfred Katz MD Work Phone: [facility] 09-09-2024 14:55-0400 SaO2% (BldA) [Mass fraction] 99 % Dr. Alfred Katz MD Work Phone: [facility] 09-09-2024 14:55-0400 Systolic blood pressure 148 mm[Hg] Dr. Alfred Katz MD Work Phone: [facility] 07-29-2024 09:44-0500 Body mass index (BMI) [Ratio] 22.1 kg/m2 Dr. Alfred Katz MD Work Phone: [facility] 07-29-2024 09:44-0500 Body weight 63.[address] Alfred Katz MD Work Phone: [facility] 07-29-2024 09:44-0500 Diastolic blood pressure 86 mm[Hg] Dr. Alfred Katz MD Work Phone: [facility] 07-29-2024 09:44-0500 Heart rate 84 /min Dr. Alfred Katz MD Work Phone: [facility] 07-29-2024 09:44-0500 SaO2% (BldA) [Mass fraction] 99 % Dr. Alfred Katz MD Work Phone: [facility] 07-29-2024 09:44-0500 Systolic blood pressure 127 mm[Hg] Dr. Alfred Katz MD Work Phone: [facility] 07-19-2024 13:36-0500 Body mass index (BMI) [Ratio] 21.4 kg/m2 Dr. Alfred Katz MD Work Phone: [facility] 07-19-2024 13:36-0500 Body temperature 97.5 [degF] Dr. Alfred Katz MD Work Phone: [facility] 07-19-2024 13:36-0500 Body weight 62.[address] Alfred aKtz MD Work Phone: [facility] 07-19-2024 13:36-0500 Diastolic blood pressure 60 mm[Hg] Dr. Alfred Katz MD Work Phone: [facility] 07-19-2024 13:36-0500 Heart rate 86 /min Dr. Alfred Katz MD Work Phone: [facility] 07-19-2024 13:36-0500 Respiratory rate 16 /min Dr. Alfred Katz MD Work Phone: [facility] 07-19-2024 13:36-0500 SaO2% (BldA) [Mass fraction] 99 % Dr. Alfred Katz MD Work Phone: [facility] 07-19-2024 13:36-0500 Systolic blood pressure 118 mm[Hg] Dr. Alfred Katz MD Work Phone: [facility] 12-17-2023 17:00-0400 Body mass index (BMI) [Ratio] 23.02 kg/m2 Jose Athy PA-C Work Phone: [facility] 12-17-2023 17:00-0400 Body temperature 97.5 [degF] Jose Athy PA-C Work Phone: [facility] 12-17-2023 17:00-0400 Body weight 64.7 kg Jose Athy PA-C Work Phone: [facility] 12-17-2023 17:00-0400 Diastolic blood pressure 89 mm[Hg] Jose Athy PA-C Work Phone: [facility] 12-17-2023 17:00-0400 Heart rate 98 /min Jose Athy PA-C Work Phone: [facility] 12-17-2023 17:00-0400 Respiratory rate 18 /min Jose Athy PA-C Work Phone: [facility] 12-17-2023 17:00-0400 SaO2% (BldA) [Mass fraction] 99 % Jose Athy PA-C Work Phone: [facility] 12-17-2023 17:00-0400 Systolic blood pressure 133 mm[Hg] Jose Athy PA-C Work Phone: [facility] 08-14-2023 11:44-0500 Body height 170.[address] Alfred Katz Work Phone: [facility] 08-14-2023 11:44-0500 Body mass index (BMI) [Ratio] 22.2 kg/m2 Dr. Alfred Katz Work Phone: [facility] 08-14-2023 11:44-0500 Body temperature 98.9 [degF] Dr. Alfred Katz Work Phone: [facility] 08-14-2023 11:44-0500 Body weight 64.[address] Alfred Katz Work Phone: [facility] 08-14-2023 11:44-0500 Diastolic blood pressure 90 mm[Hg] Dr. Alfred Katz Work Phone: [facility] 08-14-2023 11:44-0500 Heart rate 99 /min Dr. Alfred Katz Work Phone: [facility] 08-14-2023 11:44-0500 Respiratory rate 16 /min Dr. Alfred Katz Work Phone: [facility] 08-14-2023 11:44-0500 SaO2% (BldA) [Mass fraction] 99 % Dr. Alfred Katz Work Phone: [facility] 08-14-2023 11:44-0500 Systolic blood pressure 129 mm[Hg] Dr. Alfred Katz Work Phone: [facility] 07-12-2023 11:21-0500 Body temperature 98.1 [degF] Dr. Alfred Katz Work Phone: [facility] 07-12-2023 11:21-0500 Diastolic blood pressure 87 mm[Hg] Dr. Alfred Katz Work Phone: [facility] 07-12-2023 11:21-0500 Heart rate 50 /min Dr. Alfred Katz Work Phone: [facility] 07-12-2023 11:21-0500 Respiratory rate 16 /min Dr. Alfred Katz Work Phone: [facility] 07-12-2023 11:21-0500 SaO2% (BldA) [Mass fraction] 98 % Dr. Alfred Katz Work Phone: [facility] 07-12-2023 11:21-0500 Systolic blood pressure 137 mm[Hg] Dr. Alfred Katz Work Phone: [facility] 07-12-2023 05:32-0500 Body mass index (BMI) [Ratio] 20.5 kg/m2 Dr. Alfred Katz Work Phone: [facility] 07-12-2023 05:32-0500 Body weight 59.[address] Alfred Katz Work Phone: [facility] 07-09-2023 11:43-0500 Body height 170.[address] Alfred Katz Work Phone: [facility] 07-08-2023 22:00-0500 Inhaled oxygen flow rate 2 L/min Dr. Alfred Katz Work Phone: [facility] 07-08-2023 11:50-0500 Body temperature 98 [degF] [facility] 07-08-2023 11:50-0500 Diastolic blood pressure 81 mm[Hg] [facility] 07-08-2023 11:50-0500 Heart rate 104 /min [facility] 07-08-2023 11:50-0500 Respiratory rate 12 /min [facility] 07-08-2023 11:50-0500 SaO2% (BldA) [Mass fraction] 100 % [facility] 07-08-2023 11:50-0500 Systolic blood pressure 120 mm[Hg] [facility] 07-08-2023 07:31-0500 Body mass index (BMI) [Ratio] 18.8 kg/m2 [facility] 07-08-2023 07:31-0500 Body weight 54.4 kg [facility] 07-08-2023 07:29-0500 Body height 170.18 cm [facility] 05-23-2023 17:40-0500 Body temperature 97.5 [degF] Patricio Dawn APRN.AERONAUTICAL RESEARCH ENGINEER Work Phone: [facility] 05-23-2023 17:40-0500 Body weight 58.24 kg Patricio Dawn APRN.AERONAUTICAL RESEARCH ENGINEER Work Phone: [facility] 05-23-2023 17:40-0500 Diastolic blood pressure 62 mm[Hg] Patricio Dawn APRN.AERONAUTICAL RESEARCH ENGINEER Work Phone: [facility] 05-23-2023 17:40-0500 Heart rate 102 /min Patricio Dawn APRN.AERONAUTICAL RESEARCH ENGINEER Work Phone: [facility] 05-23-2023 17:40-0500 Respiratory rate 16 /min Patricio Dawn APRN.AERONAUTICAL RESEARCH ENGINEER Work Phone: [facility] 05-23-2023 17:40-0500 SaO2% (BldA) [Mass fraction] 98 % Patricio Dawn APRN.AERONAUTICAL RESEARCH ENGINEER Work Phone: [facility] 05-23-2023 17:40-0500 Systolic blood pressure 106 mm[Hg] Patricio Dawn APRN.AERONAUTICAL RESEARCH ENGINEER Work Phone: [facility] 11-13-2022 15:16-0400 Body height 170.[address] Alfred Katz Work Phone: [facility] 11-13-2022 15:16-0400 Body mass index (BMI) [Ratio] 20.9 kg/m2 Dr. Alfred Katz Work Phone: [facility] 11-13-2022 15:16-0400 Body temperature 98.8 [degF] Dr. Alfred Katz Work Phone: [facility] 11-13-2022 15:16-0400 Body weight 60.[address] Alfred Katz Work Phone: [facility] 11-13-2022 15:16-0400 Diastolic blood pressure 88 mm[Hg] Dr. Alfred Katz Work Phone: [facility] 11-13-2022 15:16-0400 Heart rate 111 /min Dr. Alfred Katz Work Phone: [facility] 11-13-2022 15:16-0400 Respiratory rate 16 /min Dr. Alfred Katz Work Phone: [facility] 11-13-2022 15:16-0400 SaO2% (BldA) [Mass fraction] 99 % Dr. Alfred Katz Work Phone: [facility] 11-13-2022 15:16-0400 Systolic blood pressure 118 mm[Hg] Dr. Alfred Katz Work Phone: [facility] 07-29-2022 14:24-0500 Body mass index (BMI) [Ratio] 19.1 kg/m2 Dr. Alfred Katz Work Phone: [facility] 07-29-2022 14:24-0500 Body temperature 97.6 [degF] Dr. Alfred Katz Work Phone: [facility] 07-29-2022 14:24-0500 Body weight 55.[address] Alfred Katz Work Phone: [facility] 07-29-2022 14:24-0500 Diastolic blood pressure 86 mm[Hg] Dr. Alfred Katz Work Phone: [facility] 07-29-2022 14:24-0500 Heart rate 95 /min Dr. Alfred Katz Work Phone: [facility] 07-29-2022 14:24-0500 Respiratory rate 14 /min Dr. Alfred Katz Work Phone: [facility] 07-29-2022 14:24-0500 SaO2% (BldA) [Mass fraction] 98 % Dr. Alfred Katz Work Phone: [facility] 07-29-2022 14:24-0500 Systolic blood pressure 142 mm[Hg] Dr. Alfred Katz Work Phone: [facility] 07-05-2022 13:04-0500 Body height 170.[address] Alfred Katz Work Phone: [facility] 07-05-2022 13:04-0500 Body mass index (BMI) [Ratio] 19.8 kg/m2 Dr. Alfred Katz Work Phone: [facility] 07-05-2022 13:04-0500 Body temperature 97.2 [degF] Dr. Alfred Katz Work Phone: [facility] 07-05-2022 13:04-0500 Body weight 57.[address] Alfred Katz Work Phone: [facility] 07-05-2022 13:04-0500 Diastolic blood pressure 88 mm[Hg] Dr. Alfred Katz Work Phone: [facility] 07-05-2022 13:04-0500 Heart rate 106 /min Dr. Alfred Katz Work Phone: [facility] 07-05-2022 13:04-0500 Respiratory rate 18 /min Dr. Alfred Katz Work Phone: [facility] 07-05-2022 13:04-0500 SaO2% (BldA) [Mass fraction] 97 % Dr. Alfred Katz Work Phone: [facility] 07-05-2022 13:04-0500 Systolic blood pressure 125 mm[Hg] Dr. Alfred Katz Work Phone: [facility] 06-27-2022 15:40-0500 Body temperature 98.3 [degF] Dr. Alfred Katz Work Phone: [facility] 06-27-2022 15:40-0500 Body weight 54.[address] Alfred Katz Work Phone: [facility] 06-27-2022 15:40-0500 Diastolic blood pressure 68 mm[Hg] Dr. Alfred Katz Work Phone: [facility] 06-27-2022 15:40-0500 Heart rate 113 /min Dr. Alfred Katz Work Phone: [facility] 06-27-2022 15:40-0500 Respiratory rate 16 /min Dr. Alfred Katz Work Phone: [facility] 06-27-2022 15:40-0500 SaO2% (BldA) [Mass fraction] 98 % Dr. Alfred Katz Work Phone: [facility] 06-27-2022 15:40-0500 Systolic blood pressure 98 mm[Hg] Dr. Alfred Katz Work Phone: [facility] 04-26-2022 13:51-0400 Body temperature 97.7 [degF] Dr. Alfred Katz Work Phone: [facility] 04-26-2022 13:51-0400 Body weight 56.[address] Alfred Katz Work Phone: [facility] 04-26-2022 13:51-0400 Diastolic blood pressure 76 mm[Hg] Dr. Alfred Katz Work Phone: [facility] 04-26-2022 13:51-0400 Heart rate 112 /min Dr. Alfred Katz Work Phone: [facility] 04-26-2022 13:51-0400 Respiratory rate 18 /min Dr. Alfred Katz Work Phone: [facility] 04-26-2022 13:51-0400 SaO2% (BldA) [Mass fraction] 97 % Dr. Alfred Katz Work Phone: [facility] 04-26-2022 13:51-0400 Systolic blood pressure 116 mm[Hg] Dr. Alfred Katz Work Phone: [facility] 04-24-2017 10:04-0400 BMI (Body Mass Index) 20.56 kg/m2 [facility] Work Phone: 04-24-2017 10:04-0400 Body Temperature 98.3 [degF] [facility] Work Phone: 04-24-2017 10:04-0400 BP Diastolic 76 mm[Hg] [facility] Work Phone: 04-24-2017 10:04-0400 BP Systolic 111 mm[Hg] [facility] Work Phone: 04-24-2017 10:04-0400 Height 167.64 cm [facility] Work Phone: 04-24-2017 10:04-0400 Pulse (Heart Rate) 82 /min [facility] Work Phone: 04-24-2017 10:04-0400 Respiratory Rate 18 /min [facility] Work Phone: 04-24-2017 10:04-0400 Weight 57.79 kg [facility] Work Phone: 04-08-2017 08:51-0400 BMI (Body Mass Index) 21.37 kg/m2 [facility] Work Phone: 04-08-2017 08:51-0400 BP Diastolic 64 mm[Hg] [facility] Work Phone: 04-08-2017 08:51-0400 BP Systolic 100 mm[Hg] [facility] Work Phone: 04-08-2017 08:51-0400 Height 167.64 cm Melania Nuñez [facility]PN [facility] Work Phone: 04-08-2017 08:51-0400 Pulse (Heart Rate) 88 /min Melania Nuñez [facility] Work Phone: 04-08-2017 08:51-0400 Respiratory Rate 20 /min Melania Nuñez [facility] Work Phone: 04-08-2017 08:51-0400 Weight 60.06 kg Melania Nuñez [facility] Work Phone: 01-16-2017 08:22-0400 BMI (Body Mass Index) 21.5 kg/m2 Melania Nuñez [facility]PN [facility] Work Phone: 01-16-2017 08:22-0400 Body Temperature 96.5 [degF] Melania Nuñez [facility] Work Phone: 01-16-2017 08:22-0400 BP Diastolic 70 mm[Hg] Melania Nuñez [facility] Work Phone: 01-16-2017 08:22-0400 BP Systolic 108 mm[Hg] Melania Nuñez [facility] Work Phone: 01-16-2017 08:22-0400 Height 167.64 cm Melania Nuñez [facility] Work Phone: 01-16-2017 08:22-0400 Pulse (Heart Rate) 73 /min Melania Nuñez [facility] Work Phone: 01-16-2017 08:22-0400 Respiratory Rate 18 /min Melania Nuñez [facility] Work Phone: 01-16-2017 08:22-0400 Weight 60.42 kg Melania Nuñez [facility] Work Phone: 10-17-2016 13:29-0400 BMI (Body Mass Index) 21.4 kg/m2 Daily Blanco NP [facility] Work Phone: 10-17-2016 13:29-0400 BP Diastolic 69 mm[Hg] Daily Blanco NP [facility] Work Phone: 10-17-2016 13:29-0400 BP Systolic 112 mm[Hg] Daily Blanco NP [facility] Work Phone: 10-17-2016 13:29-0400 Height 167.64 cm Daily Blanco NP [facility] Work Phone: 10-17-2016 13:29-0400 Pulse (Heart Rate) 73 /min Daily Blanco NP [facility] Work Phone: 10-17-2016 13:29-0400 Pulse Oximetry 97 % Daily Blanco NP [facility] Work Phone: 10-17-2016 13:29-0400 Respiratory Rate 16 /min Daily Blanco NP [facility] Work Phone: 10-17-2016 13:29-0400 Weight 60.15 kg Daily Blanco NP [facility] Work Phone: 08-01-2016 08:49-0500 BSA (Body Surface Area) 1.68 m2 Daily Blanco NP [facility] Work Phone: Encounters Encounter Date Encounter Type Care Provider Facility Start: 05-11-2025 ambulatory Alfred Katz Facili ty:[facility] Start: 04-22-2025 End: 04-22-2025 ambulatory Alfred Katz Facility:[facility] Start: 04-06-2025 End: 04-06-2025 Patient encounter procedure Sarahi CR -[facility] Work Phone: Start: 04-06-2025 End: 04-06-[address] Alfred Katz MD Work Phone: -[facility] Start: 04-06-2025 End: 04-06-2025 ambulatory Sarahi Maier Facility:[facility] Start: 03-09-2025 End: 03-09-[address] Alfred Katz MD -[facility] Work Phone: Start: 03-09-2025 End: 03-09-[address] Alfred Katz MD Work Phone: -[facility] Start: 03-09-2025 End: 03-09-2025 ambulatory Alfred Katz Facility:[facility] Start: 02-01-2025 End: 02-01-2025 Patient encounter procedure Maria Elena GRANGER -[facility] Work Phone: Start: 02-01-2025 End: 02-01-[address] Alfred Katz MD Work Phone: -[facility] Start: 11-25-2024 End: 11-25-[address] Alfred Katz MD Work Phone: [facility] Work Phone: Start: 11-25-2024 End: 11-25-2024 Patient encounter procedure Criss GRANGER -[facility] Work Phone: Start: 11-25-2024 End: 11-25-2024 ambulatory Criss Alonso Facility:[facility] Start: 11-10-2024 End: 11-10-2024 Patient encounter procedure Maria Elena GRANGER -[facility] Work Phone: Start: 11-10-2024 End: 11-10-[address] Alfred Kazt MD Work Phone: [facility] Work Phone: Start: 11-08-2024 End: 11-08-2024 Patient encounter procedure Maria Elena GRANGER -[facility] Work Phone: Start: 11-08-2024 End: 11-08-2024 ambulatory Maria Elena Prater Facility:[facility] Start: 11-04-2024 End: 11-04-2024 Emergency department patient visit Dr. Alfred Katz MD Work Phone: -Emergency Department Work Phone: Start: 10-27-2024 End: 10-27-[address] Alfred Katz MD -[facility] Work Phone: Start: 10-27-2024 End: 10-27-[address] Alfred Katz MD Work Phone: [facility] Work Phone: Start: 10-27-2024 End: 10-27-2024 ambulatory Alfred Katz Facility:[facility] Start: 10-19-2024 End: 10-19-2024 Patient encounter procedure Criss GRANGER -[facility] Work Phone: Start: 10-19-2024 End: 10-19-2024 ambulatory Criss Alonso Facility:[facility] Start: 09-09-2024 End: 09-09-2024 Patient encounter procedure Stef GRANGER -[facility] Work Phone: Start: 09-09-2024 End: 09-09-2024 ambulatory Davionlandryjose rafael Byrontressayaa Facility:[facility] Start: 08-25-2024 End: 08-25-2024 ambulatory [facility] Facility:[facility] Start: 08-25-2024 End: 08-25-[address] Alfred Katz MD -Physical Therapy Work Phone: Start: 08-03-2024 End: 08-03-2024 Patient encounter procedure Maria Elena GRANGER -[facility] Work Phone: Start: 08-03-2024 End: 08-03-2024 ambulatory Alfred Katz Facility:[facility] Start: 07-29-2024 End: 07-29-2024 Patient encounter procedure Sarahi MARQUISC -[facility] Work Phone: Start: 07-29-2024 End: 07-29-2024 ambulatory Sarahi Darrion Facility:[facility] Start: 07-19-2024 End: 07-19-[address] Alfred Katz MD -[facility] Work Phone: Start: 07-19-2024 End: 07-19-2024 ambulatory Alfred Katz Facility:[facility] Start: 12-17-2023 End: 12-17-2023 ambulatory DAVIONLANDRYABBY MATTHEWSMANE Facility:[facility] Start: 12-17-2023 End: 12-17-2023 Patient encounter procedure Jose Damon PA-C Work Phone: [facility] Comment on above: Infection of scalp ( Primary Dx); Neck muscle spasm Start: 10-27-2023 End: 10-27-[address] Alfred Katz Work Phone: [facility] Work Phone: Start: 10-27-2023 End: 10-27-[address] [facility]: Start: 08-14-2023 End: 08-14-[address] Alfred Katz Work Phone: [facility] Work Phone: Start: 07-24-2023 End: 07-24-[address] Alfred Katz Work Phone: [facility] Work Phone: Start: 07-24-2023 End: 07-24-[address] [facility]: Start: 07-12-2023 Non-patient / Non-visit Dr. Alfred Katz Work Phone: [facility] Work Phone: Start: 07-11-2023 Non-patient / Non-visit Dr. Alfred Katz Work Phone: [facility] Work Phone: Start: 07-10-2023 Non-patient / Non-visit Dr. Alfred Katz Work Phone: [facility] Work Phone: Start: 07-09-2023 Non-patient / Non-visit Dr. Alfred Katz Work Phone: [facility] Work Phone: Start: 07-08-2023 Non-patient / Non-visit Dr. Alfred Katz Work Phone: [facility] Work Phone: Start: 07-08-2023 End: 07-12-2023 Evaluation and management of inpatient [facility]-Intensive Care Unit Work Phone: Start: 05-23-2023 End: 05-23-2023 ambulatory ALFRED KATZ Facility:[facility] Start: 05-23-2023 End: 05-23-2023 Patient encounter procedure Patricio Dawn APRN.CNP Work Phone: [facility] Comment on above: URI, acute (Primary Dx) Start: 11-13-2022 End: 11-13-[address] Alfred Katz Work Phone: [facility] Work Phone: Start: 11-13-2022 End: 11-13-[address] Alfred Katz Work Phone: [facility] Start: 07-29-2022 End: 07-29-[address] Alfred Katz Work Phone: [facility] Start: 07-05-2022 End: 07-05-[address] Alfred Katz Work Phone: [facility] Start: 06-27-2022 End: 06-27-[address] Alfred Katz Work Phone: [facility] Work Phone: Start: 06-27-2022 End: 06-27-[address] Alfred Katz Work Phone: [facility] Start: 04-26-2022 End: 04-26-[address] Alfred Katz Work Phone: [facility] Start: 04-27-2018 End: 04-29-2018 Patient encounter procedure JOE MCKEON Facility:[facility] Procedures Date Procedure Procedure Detail Performing Clinician Start: 04-06-2025 Vitamin D, 25-hydrox y measurement Dr. Alfred Katz MD Work Phone: Comment on above: Vitamin D StatusDefi ciency: <20 ng/mL (50nmol/L)Insufficiency: 20-30 ng/mL (50-75 nmol/L)Sufficiency: 30-100 ng/mL (75-250 nmol/L)Toxicity: >100 ng/mL (>250 nmol/L) Start: 11-25-2024 MRI of lumbar spine Dr. Alfred Katz MD Work Phone: Start: 11-08-2024 Cl[address]ium diff[address] e detection Dr. Alfred Katz MD Work Phone: Start: 11-08-[address] Alfred Katz MD Work Phone: Start: 11-08-2024 Iadna-dna/rna gi pth gn multiplex probe tq 6-11 Dr. Alfred Katz MD Work Phone: Start: 11-04-2024 Urnls dip stick/tabl et reagent auto microscopy Dr. Alfred Katz MD Work Phone: Start: 11-04-2024 D-dimer assay, quantitative Dr. Alfred Katz MD Work Phone: Comment on above: NORMAL D-Dimer level (<0.50) indicates no DVT or PE. Start: 11-04-2024 Plain chest X-ray Dr. Yaa Katz MD Work Phone: Start: 10-19-2024 X-ray of lumbosacral spine Dr. Alfred Katz MD Work Phone: Start: 07-11-2023 Measurement of occul t blood in stool specimen using immunoassay Dr. Alfred Katz Work Phone: Start: 07-10-[address] Alfred Katz Work Phone: Start: 07-10-2023 CT of abdomen and pe lvis without contrast Dr. Alfred Katz Work Phone: Start: 07-09-[address] Dav[facility] Katz Work Phone: Start: 07-08-2023 Bacteria identified in Blood by Culture Dr. Alfred Katz Work Phone: Start: 07-08-[address] Alfred Katz Work Phone: Start: 07-08-2023 SARS-CoV-2, Influenz a & RSV (PCR) Start: 07-08-[address] Marissa Katz Work Phone: Start: 07-08-2023 Plain chest X-ray Start: 05-08-2016 Colonoscopy Patricio Dawn APRN.CNP Work Phone: Plan of Treatment Date Care Activity Detail Author Start: 05-08-2026 Colonoscopy Colonoscopy [facility] Start: 05-08-2026 Colorectal Cancer Screening Colorectal Cancer Screening [facility] Start: 05-08-2026 Screening for malignant neoplasm of colon [facility] Start: 03-09-2025 CBC W Auto Differential panel - Blood [facility] Start: 03-09-2025 Comprehensive metabolic 2000 panel - Serum or Plasma [facility] Start: 11-04-2024 [facility] Start: 09-09-2024 Patient referral [facility] Work Phone: Start: 07-19-2024 Patient referral [facility] Work Phone: Start: 02-22-2024 Influenza vaccination Influenza Vaccine (Season Ended) [facility] Start: 07-13-2023 Blood chemistry [facility] Start: 07-13-2023 [facility] Start: 07-12-2023 Patient discharge [facility] Start: 07-12-2023 Blood chemistry [facility] Start: 07-11-2023 Care planning and problem solving actions [facility] Start: 07-11-2023 Urinary bladder residual urine study [facility] Start: 07-11-2023 Blood chemistry [facility] Start: 07-11-2023 Inhalation therapy procedure [facility] Start: 07-10-2023 Care regimes management [facility] Start: 07-10-2023 Notification of physician [facility] Start: 07-10-2023 [facility] Start: 07-10-2023 Referral to electrical logging engineer [facility] Start: 07-10-2023 Blood chemistry [facility] Start: 07-10-2023 [facility] Start: 07-10-2023 [facility] Start: 07-09-2023 [facility] Start: 07-09-2023 Blood chemistry [facility] Start: 07-09-2023 Thyroid stimulating hormone measurement [facility] Start: 07-08-2023 Blood chemistry [facility] Start: 07-08-2023 Blood chemistry [facility] Start: 07-08-2023 Blood chemistry [facility] Start: 07-08-2023 Bacteria identified in Blood by Culture Blood Culture [facility] Start: 07-08-2023 End: 07-08-2023 Following clinical pathway protocol [facility] Start: 07-08-2023 Lab findings surveillance [facility] Start: 07-08-2023 Notification of physician [facility] Start: 07-08-2023 Patient education [facility] Start: 07-08-2023 Gas panel - Venous blood [facility] Start: 07-08-2023 Assessment of risk of venous thromboembolism [facility] Start: 07-08-2023 Continuous pulse oximetry [facility] Start: 07-08-2023 Insertion of catheter into peripheral vein [facility] Start: 07-08-2023 Measuring intake and output [facility] Start: 07-08-2023 Patient referral to dietitian [facility] Start: 07-08-2023 Providing care according to standard [facility] Start: 07-08-2023 Respiratory pathogens DNA and RNA panel - Respiratory specimen by ANANTH with probe detection [facility] Start: 07-08-2023 Taking nasal swab [facility] Start: 07-08-2023 Vital signs measurements [facility] Start: 07-08-2023 End: 07-08-2023 [facility] Start: 07-08-2023 End: 07-08-2023 Blood chemistry [facility] Start: 07-08-2023 End: 07-08-2023 Blood culture [facility] Start: 07-08-2023 Verification routine [facility] Start: 07-08-2023 Admission procedure [facility] Start: 07-08-2023 [facility] Start: 02-21-2023 Covid-19 Vaccine () Covid-19 Vaccine () [facility] Start: 02-21-2023 Influenza vaccination Influenza Vaccine (#1) [facility] Start: 07-29-2022 Dna antibody [place]/double stranded DNA [place]TIBODY [place] [facility] Start: 07-29-2022 Extractable nuclear antigen antibody any method NUCLEAR ANTIGEN ANTIBODY [facility] Start: 06-27-2022 Sars-cov-2 detection by dna/rna SARS-COV-2 COVID-19 AMP PRB [facility] Start: 04-26-2022 Patient referral [facility] Work Phone: Start: 07-20-2018 3 comp foot exam completed [facility]abetic Foot [facility] Start: 01-09-2018 Diabetic foot examination [facility] Start: 01-09-2018 Pneumococcal vaccination [facility] Start: 10-10-2017 Hepatitis B screening Urine Albumin:Creatinine Ratio [facility] Start: 10-10-2017 Hepatitis B surface antibody level LDL Cholesterol [facility] Start: 07-24-2017 End: 07-24-2017 Appointment Appointment [facility] Work Phone: Start: 07-08-2017 End: 07-08-2017 Appointment Appointment [facility] Work Phone: Start: 04-24-2017 End: 04-24-2017 *CMP Complete Metabolic Panel *CMP Complete Metabolic Panel [facility] Work Phone: Start: 04-24-2017 End: 04-24-2017 *Microalbumin, Creatine Ratio, rand urine *Microalbumin, Creatine Ratio, rand urine [facility] Work Phone: Start: 04-24-2017 End: 04-24-2017 Hemoglobin A1c/Hemoglobin.total mass fraction (Bld) *HgA1C [facility] Work Phone: Start: 04-24-2017 End: 04-24-2017 Appointment Appointment [facility] Work Phone: Start: 04-08-2017 End: 04-08-2017 Appointment Appointment [facility] Work Phone: Start: 01-16-2017 End: 01-19-2017 *CMP Complete Metabolic Panel *CMP Complete Metabolic Panel [facility] Work Phone: Start: 01-16-2017 End: 01-19-2017 *Microalbumin, Creatine Ratio, rand urine *Microalbumin, Creatine Ratio, rand urine [facility] Work Phone: Start: 01-16-2017 End: 01-19-2017 Hemoglobin A1c/Hemoglobin.total mass fraction (Bld) *HgA1C [facility] Work Phone: Start: 01-16-2017 End: 01-19-2017 Lipid panel [AGGREGATE] *Lipid Profile [facility] Work Phone: Start: 01-16-2017 End: 01-16-2017 Appointment Appointment [facility] Work Phone: Start: 01-16-2017 End: 01-16-2017 Appointment Appointment [facility] Work Phone: Start: 01-16-2017 End: 01-19-2017 *CMP Complete Metabolic Panel *CMP Complete Metabolic Panel [facility] Work Phone: Start: 01-16-2017 End: 01-19-2017 *Microalbumin, Creatine Ratio, rand urine *Microalbumin, Creatine Ratio, rand urine [facility] Work Phone: Start: 01-16-2017 End: 01-19-2017 Hemoglobin A1c/Hemoglobin.total mass fraction (Bld) *HgA1C [facility] Work Phone: Start: 01-16-2017 End: 01-19-2017 Lipid 1996 panel *Lipid Profile [facility] Work Phone: Start: 01-09-2017 Hemoglobin A1c measurement HbA1C [facility] Start: 01-09-2017 Hemoglobin A1c/Hemoglobin.total in Blood HbA1C [facility] Start: 08-01-2016 End: 08-02-2016 *CMP Complete Metabolic Panel *CMP Complete Metabolic Panel [facility] Work Phone: Start: 08-01-2016 End: 08-02-2016 *Microalbumin, Creatine Ratio, rand urine *Microalbumin, Creatine Ratio, rand urine [facility] Work Phone: Start: 08-01-2016 End: 08-02-2016 Hemoglobin A1c/Hemoglobin.total mass fraction (Bld) *HgA1C [facility] Work Phone: Start: 08-01-2016 End: 08-02-2016 Lipid panel [AGGREGATE] *Lipid Profile [facility] Work Phone: Start: 08-01-2016 End: 08-02-2016 Thyroid stimulating hormone (TSH) *TSH [facility] Work Phone: Start: 08-01-2016 End: 08-02-2016 *CMP Complete Metabolic Panel *CMP Complete Metabolic Panel [facility] Work Phone: Start: 08-01-2016 End: 08-02-2016 *Microalbumin, Creatine Ratio, rand urine *Microalbumin, Creatine Ratio, rand urine [facility] Work Phone: Start: 08-01-2016 End: 08-02-2016 HbA1c *HgA1C [facility] Work Phone: Start: 08-01-2016 End: 08-02-2016 Lipid panel [AGGREGATE] *Lipid Profile [facility] Work Phone: Start: 08-01-2016 End: 08-02-2016 Thyroid stimulating hormone (TSH) *TSH [facility] Work Phone: Start: 02-21-2016 Glaucoma screening Dilated Retinal Exam [facility] Start: 02-21-2016 Hepatitis C antibody, confirmatory test Dilated Retinal Exam [facility] Start: 2007 Urine microalbumin profile DTaP,Tdap,Td Vaccine (1 - Tdap) [facility] Start: 2006 Annual PCP Team Chronic Disease Visit Annual PCP Team Chronic Disease Visit [facility] Start: 2006 Hepatitis C Screening Hepatitis C Screening [facility] Start: 2006 Hepatitis C screening Hepatitis C Screening [facility] Start: 2006 HIV Screening HIV Screening [facility] Start: 2006 HIV screening HIV Screening [facility] Start: 05-06-2001 Hepatitis B Vaccine (3 of 3 - 3-dose series) Hepatitis B Vaccine (3 of 3 - 3-dose series) [facility] Start: 1988 Covid-19 Vaccine (#1) Covid-19 Vaccine (#1) [facility] Alanine aminotransfe rase [Enzymatic activity/volume] in Serum or Plasma [facility] Alanine aminotransfe rase [Enzymatic activity/volume] in Serum or Plasma [facility] Albumin [Mass/volume ] in Serum or Plasma [facility] Albumin [Mass/volume ] in Serum or Plasma [facility] Alkaline phosphatase [Enzymatic activity/volume] in Serum or Plasma [facility] Alkaline phosphatase [Enzymatic activity/volume] in Serum or Plasma [facility] Anion gap in Serum o r Plasma [facility] Anion gap [facility] Anion gap measurement [place] [facility] Anion gap measurement [place] [facility] Anion gap measurement [place] [facility] An[facility] gap measurement [place] [facility] Anion gap measurement [place] [facility] An[facility] gap measurement [place] [facility] Anion gap measurement [facility] Anion gap measurement [facility] Aspartate aminotrans ferase [Enzymatic activity/volume] in Serum or Plasma [facility] Bilirubin measuremen t, urine [facility] Bilirubin, total measurement [facility] Bilirubin, total measurement [facility] BUN/Creatinine ratio [facility] BUN/Creatinine ratio [facility] BUN/Creatinine ratio [facility] BUN/Creatinine ratio [facility] BUN/Creatinine ratio [facility] BUN/Creatinine ratio [facility] BUN/Creatinine ratio [facility] BUN/Creatinine ratio [facility] BUN/Creatinine ratio [facility] BUN/Creatinine ratio [facility] Calcium [Mass/volume ] in Serum or Plasma [facility] Calcium [Mass/volume ] in Serum or Plasma [facility] Calcium [Mass/volume ] in Serum or Plasma [facility] Calcium [Mass/volume ] in Serum or Plasma [facility] Calcium [Mass/volume ] in Serum or Plasma [facility] Calcium [Mass/volume ] in Serum or Plasma [facility] Calcium [Mass/volume ] in Serum or Plasma [facility] Calcium [Mass/volume ] in Serum or Plasma [facility] Calcium [Mass/volume ] in Serum or Plasma [facility] Calcium [Mass/volume ] in Serum or Plasma [facility] Carbon dioxide, tota l [Moles/volume] in Central venous blood [facility] Carbon dioxide, tota l [Moles/volume] in Serum or Plasma [facility] Carbon dioxide, tota l [Moles/volume] in Serum or Plasma [facility] Carbon dioxide, tota l [Moles/volume] in Serum or Plasma [facility] Carbon dioxide, tota l [Moles/volume] in Serum or Plasma [facility] Carbon dioxide, tota l [Moles/volume] in Serum or Plasma [facility] Carbon dioxide, tota l [Moles/volume] in Serum or Plasma [facility] Carbon dioxide, tota l [Moles/volume] in Serum or Plasma [facility] Carbon dioxide, tota l [Moles/volume] in Serum or Plasma [facility] Carbon dioxide, tota l [Moles/volume] in Serum or Plasma [facility] Chloride [Moles/volu me] in Serum or Plasma [facility] Chloride [Moles/volu me] in Serum or Plasma [facility] Chloride [Moles/volu me] in Serum or Plasma [facility] Chloride [Moles/volu me] in Serum or Plasma [facility] [facility] Chloride [Moles/volu me] in Serum or Plasma [facility] Chloride [Moles/volu me] in Serum or Plasma [facility] Chloride [Moles/volu me] in Serum or Plasma [facility] Chloride [Moles/volu me] in Serum or Plasma [facility] Chloride [Moles/volu me] in Serum or Plasma [facility] Clostridioides diffi cile DNA [Presence] in Unspecified specimen by ANANTH with probe detection [facility] Creatinine [Mass/vol ume] in Serum or Plasma [facility] Creatinine [Moles/vo lume] in Serum or Plasma [facility] Creatinine [Moles/vo lume] in Serum or Plasma [facility] Creatinine [Moles/vo lume] in Serum or Plasma [facility] Creatinine [Moles/vo lume] in Serum or Plasma [facility] Creatinine [Moles/vo lume] in Serum or Plasma [facility] Creatinine [Moles/vo lume] in Serum or Plasma [facility] Creatinine [Moles/vo lume] in Serum or Plasma [facility] Creatinine [Moles/vo lume] in Serum or Plasma [facility] Creatinine [Moles/vo lume] in Serum or Plasma [facility] Elastase.pancreatic [Presence] in Stool [facility] Erythrocyte mean corpuscular volume determination [facility] Erythrocyte mean corpuscular volume determination [facility] Erythrocyte mean corpuscular volume determination [facility] Erythrocyte mean corpuscular volume determination [facility] Erythrocyte mean corpuscular volume determination [facility] Erythrocyte mean corpuscular volume determination [facility] Erythrocyte mean corpuscular volume determination [facility] Giardia lamblia Ag [Presence] in Stool by Immunoassay [facility] Glucose [Mass/volume ] in Serum or Plasma [facility] Glucose [Mass/volume ] in Serum or Plasma [facility] Glucose [Mass/volume ] in Serum or Plasma [facility] Glucose [Mass/volume ] in Serum or Plasma [facility] Glucose [Mass/volume ] in Serum or Plasma [facility] Glucose [Mass/volume ] in Serum or Plasma [facility] Glucose [Mass/volume ] in Serum or Plasma [facility] Glucose [Mass/volume ] in Serum or Plasma [facility] Glucose [Mass/volume ] in Serum or Plasma [facility] Glucose [Mass/volume ] in Serum or Plasma [facility] Hematocrit [Volume Fraction] of Blood [facility] Hematocrit [Volume Fraction] of Blood [facility] Hematocrit [Volume Fraction] of Blood [facility] Hematocrit [Volume Fraction] of Blood [facility] Hematocrit [Volume Fraction] of Blood [facility] Hematocrit [Volume Fraction] of Blood [facility] Hematocrit [Volume Fraction] of Blood [facility] Hemoglobin [Mass/vol ume] in Blood [facility] Hemoglobin [Mass/vol ume] in Blood [facility] Hemoglobin [Mass/vol ume] in Blood [facility] Hemoglobin [Mass/vol ume] in Blood [facility] Hemoglobin [Mass/vol ume] in Blood [facility] Hemoglobin [Mass/vol ume] in Blood [facility] Hemoglobin [Mass/vol ume] in Blood [facility] Hemoglobin [Presence ] in Urine [facility] Lactic acid measurement [facility] Leukocytes [#/volume ] in Blood [facility] Leukocytes [#/volume ] in Blood [facility] Leukocytes [#/volume ] in Blood [facility] Leukocytes [#/volume ] in Blood [facility] Leukocytes [#/volume ] in Blood [facility] Leukocytes [#/volume ] in Blood [facility] Leukocytes [#/volume ] in Blood [facility] Mean corpuscular hemoglobin concentration determination [facility] Mean corpuscular hemoglobin concentration determination [facility] Mean corpuscular hemoglobin concentration determination [facility] Mean corpuscular hemoglobin concentration determination [facility] Mean corpuscular hemoglobin concentration determination [facility] Mean corpuscular hemoglobin concentration determination [facility] Mean corpuscular hemoglobin concentration determination [facility] Mean corpuscular hemoglobin determination [facility] Mean corpuscular hemoglobin determination [facility] Mean corpuscular hemoglobin determination [facility] Mean corpuscular hemoglobin determination [facility] Mean corpuscular hemoglobin determination [facility] Mean corpuscular hemoglobin determination [facility] Mean corpuscular hemoglobin determination [facility] Measurement of keton es in urine using dipstick [facility] Measurement of renal function [facility] Measurement of renal function [facility] Measurement of renal function [facility] Measurement of renal function [facility] Measurement of renal function [facility] Measurement of renal function [facility] Measurement of renal function [facility] Measurement of renal function [facility] Measurement of renal function [facility] Measurement of renal function [facility] Microscopic urinalysis [facility] MR Lumbar spine [facility] Neutrophil count [facility] Neutrophil count [facility] Neutrophil count [facility] Neutrophil count [facility] Neutrophil count [facility] Neutrophil count [facility] Neutrophil count [facility] Neutrophil percent differential count [facility] Neutrophil percent differential count [facility] Neutrophil percent differential count [facility] Neutrophil percent differential count [facility] Neutrophil percent differential count [facility] Neutrophil percent differential count [facility] Neutrophil percent differential count [facility] Nucleic acid assay [facility] Patient Education [facility] Work Phone: Patient referral [facility] Work Phone: pH of Urine [facility] Platelets [#/volume] in Blood [facility] Platelets [#/volume] in Blood [facility] Platelets [#/volume] in Blood [facility] Platelets [#/volume] in Blood [facility] Platelets [#/volume] in Blood [facility] Platelets [#/volume] in Blood [facility] Platelets [#/volume] in Blood [facility] Potassium [Moles/vol ume] in Serum or Plasma [facility] Potassium [Moles/vol ume] in Serum or Plasma [facility] Potassium [Moles/vol ume] in Serum or Plasma [facility] Potassium [Moles/vol ume] in Serum or Plasma [facility] Potassium [Moles/vol ume] in Serum or Plasma [facility] Potassium [Moles/vol ume] in Serum or Plasma [facility] Potassium [Moles/vol ume] in Serum or Plasma [facility] Potassium [Moles/vol ume] in Serum or Plasma [facility] Potassium [Moles/vol ume] in Serum or Plasma [facility] Potassium measurement [facility] Protein measurement [facility] Red blood cell count [facility] Red blood cell count [facility] Red blood cell count [facility] Red blood cell count [facility] Red blood cell count [facility] Red blood cell count [facility] Red blood cell count [facility] Red cell distributio n width determination [facility] Red cell distributio n width determination [facility] Red cell distributio n width determination [facility] Red cell distributio n width determination [facility] Red cell distributio n width determination [facility] Red cell distributio n width determination [facility] Red cell distributio n width determination [facility] Serum chloride measurement [facility] Sodium [Moles/volume ] in Serum or Plasma [facility] Sodium [Moles/volume ] in Serum or Plasma [facility] Sodium [Moles/volume ] in Serum or Plasma [facility] Sodium [Moles/volume ] in Serum or Plasma [facility] Sodium [Moles/volume ] in Serum or Plasma [facility] Sodium [Moles/volume ] in Serum or Plasma [facility] Sodium [Moles/volume ] in Serum or Plasma [facility] Sodium [Moles/volume ] in Serum or Plasma [facility] Sodium [Moles/volume ] in Serum or Plasma [facility] Sodium measurement [facility] Specific gravity of Urine [facility] Total protein measurement [facility] Total protein measurement [facility] Urea nitrogen [Mass/volume] in Serum or Plasma [facility] Urea nitrogen [Mass/volume] in Serum or Plasma [facility] Urea nitrogen [Mass/volume] in Serum or Plasma [facility] Urea nitrogen [Mass/volume] in Serum or Plasma [facility] Urea nitrogen [Mass/volume] in Serum or Plasma [facility] Urea nitrogen [Mass/volume] in Serum or Plasma [facility] Urea nitrogen [Mass/volume] in Serum or Plasma [facility] Urea nitrogen [Mass/volume] in Serum or Plasma [facility] Urea nitrogen [Mass/volume] in Serum or Plasma [facility] Urea nitrogen [Mass/volume] in Serum or Plasma [facility] Urinalysis, blood, qualitative [facility] Urine dipstick for glucose [facility] Urine dipstick for leukocyte esterase [facility] Urine dipstick for nitrite [facility] Urine dipstick for protein [facility] Urine examination [facility] Urine microscopy: epithelial cells [facility] Urine Microscopy: wh ite cells [facility] Urobilinogen [Presen ce] in Urine [facility] XR Lumbar spine 2 or 3 Views [facility] XR Thoracic spine Views [facility] Immunizations Immunization Date Immunization Notes Care Provider Janie joshi 01-09-2017 pneumococcal polysaccharide vaccine, 23 valent Patricio Dawn APRN.AERONAUTICAL RESEARCH ENGINEER Work Phone: [facility] 07-11-2016 influenza virus vacc ine, unspecified formulation Patricio Dawn APRN.AERONAUTICAL RESEARCH ENGINEER Work Phone: [facility] 03-23-[address] Alfred Katz Work Phone: [facility] 05-06-2007 influenza virus vacc ine, unspecified formulation Patricio Dawn APRN.AERONAUTICAL RESEARCH ENGINEER Work Phone: [facility] Work Phone: 03-10-2001 hepatitis B vaccine, pediatric or pediatric/adolescent dosage Dr. Alfred Katz MD Work Phone: [facility] 03-10-2001 measles, mumps and rubella virus vaccine Dr. Alfred Katz MD Work Phone: [facility] 01-14-2001 hepatitis B vaccine, pediatric or pediatric/adolescent dosage Dr. Alfred Katz MD Work Phone: [facility] Payers Date Payer Category Payer Self-pay [id number] 2024 Unknown [id number] 2014 Unknown [id number] 2014 Unknown [id number] 1988 Unknown [id number] 2.16.8 [id number] Unknown [id number] 2.16.8 [id number] Unknown [id number] 2.16.8 [id number] Unknown [id number] 2.16.8 40.1.957946.3.579.2.462 Unknown [id number] 2.16.8 40.1.869531.3.579.2.462 Unknown [id number] 2.16.8 40.1.558504.3.579.2.462 Unknown [id number] 2.16.8 40.1.343366.3.579.2.462 Unknown [id number] 2.16.8 40.1.800741.3.579.2.462 Unknown [id number] 2.16.8 40.1.462944.3.579.2.462 Unknown [id number] 2.16.8 40.1.901229.3.579.2.462 Unknown [id number] 2.16.8 40.1.990742.3.579.2.462 Unknown [id number] 2.16.8 40.1.056057.3.579.2.462 Unknown [id number] 2.16.8 40.1.497746.3.579.2.462 Unknown [id number] 2.16.8 40.1.177743.3.579.2.462 Unknown [id number] 2.16.8 40.1.124170.3.579.2.462 Unknown [id number] 2.16.8 40.1.561846.3.579.2.462 Unknown [id number] 2.16.8 40.1.415670.3.579.2.462 Unknown [id number] 2.16.8 40.1.983119.3.579.2.462 Unknown [id number] 2.16.8 40.1.853526.3.579.2.462 Unknown [id number] 2.16.8 40.1.531469.3.579.2.462 Unknown [id number] 2.16.8 [id number] Social History Date Type Detail Facility Start: 07-05-2022 End: 08-14-2023 Tobacco smoking status OHIS Unknown if ever smoked [facility] Start: 12-08-[address] [facility] Start: 12-08-[address] [facility] Start: 07-26-[address] - [facility] Start: 12-08-[address] [facility] Start: 1990 Sex Assigned At Male W [facility] Start: 05-23-2023 End: 11-04-2024 Tobacco smoking status NHIS Smokes tobacco daily [facility] History of tobacco use Cigarette Smoker C [facility] Start: 05-23-2023 End: 12-17-2023 Cigarettes smoked current (pack per day) - Reported 0.5 [facility] Start: 05-23-2023 Tobacco use and exposure Smokeless tobacco non-user [facility] Start: 05-23-2023 End: 12-17-2023 Alcohol intake Current non-drinker of alcohol (finding) [facility] Start: 05-23-2023 End: 12-17-2023 Tobacco use panel [facility] Start: 05-23-2023 Tobacco Comment as of 12/2015 s mokes 10 cigarettes a day [facility] Start: 1990 Sex Assigned At Not on file C [facility] Start: 08-03-2024 Tobacco smoking stat us OHIS Current some day smoker [facility] Medical Equipment Procedure Code Equipment Code Equipment Origin al Text Equipment Identifier Dates Test blood sugar 4-5 times daily. Dx: diabetes type 1. Insulin: Yes [id number] Start: 08-24-2015 Comment on above: Test blood sugar 4-5 times daily. Dx: diabetes type 1. Insulin: Yes Pen Needle, Diabetic (Comfort Ez Pen [place]) 32 gauge x 5/16 needle Start: 01-26-2025 Pen Needle, Diabetic (Comfort Ez Pen [place]) 32 gauge x 5/16 needle Start: 01-26-2025 Pen Needle, Diabetic (Comfort Ez Pen [place]) 32 gauge x 5/16 needle Start: 01-26-2025 Pen Needle, Diabetic (Comfort Ez Pen [place]) 32 gauge x 5/16 needle Start: 01-26-2025 Goals Date Patient Goal Desired Activity /State Functional Status Date Assessment Result Facility 07-12-2023 Functional status Ambulates;Up ad alicia [facility] Work Phone: Mental Status Date Assessment Result Facility 11-04-2024 Cognitive function Level Of Cons ciousness Awake;Appropriate;Follows Commands [facility] Work Phone: 07-12-2023 Cognitive function Voice/Name [facility] Work Phone: 07-08-2023 Cognitive function Level Of Cons ciousness Awake;Alert;Appropriate;Follow s Commands [facility] Work Phone: Clinical Notes 05-23-2023 to 04-06-2025 Note Date & Type Note Facility 04-06-2025 Progress note [facility] 02-01-2025 Evaluation note Diagnosis Onset Date Resolution Exocrine pancreatic insufficiency acute February 01 1:01pm Loose stools acute February 01, 2025 1:01pm Diabetes mellitus type I chronic February 01, 2025 1:01pm Anxiety and depression chronic Se ptember 2024 10:22am GERD (gastroesophageal reflux disease) chronic March 09, 2025 10:22am Lumbar radiculopathy chronic Feb ember 2024 10:22am Major depression with psychotic features chronic February 10:22am Musculoskeletal back pain chronic March 09, 2025 10:22am Toe contusion chronic February 212024 10:22am [facility] Work Phone: 1(520) 594-953708-12-2025 Evaluation note* Diagnosis Onset Date Resolution Status Admit Date Exocrine pancreatic insufficiency acute February 01 1:01pm Loose stools acute February 01, 2025 1:01pm Diabetes mellitus type I chronic February 01, 2025 1:01pm Anxiety and depression chronic Se ptember 2024 10:22am GERD (gastroesophageal reflu x disease) chronic March 09, 2025 10:22am Lumbar radiculopathy chronic Sept ember 2024 10:22am Major depression with psycho tic features chronic March 09, 2025 10:22am Musculoskeletal back pain chronic March 09, 2025 10:22am Toe contusion chronic February 212024 10:22am Near syncope chronic March 9:43am Type 1 diabetes mellitus chronic April 06, 2025 9:43am Vitamin D deficiency chronic Octo 2024 9:43am [employer] [facility] Work Phone: 1(667) 126-223805-21-2025 Evaluation note* Diagnosis Onset Date Resolution Status Admit Date Exocrine pancreatic insufficiency acute November 10, 2024 1 2:46pm Chronic diarrhea chronic October 12:46pm Diabetes mellitus type I chronic November 10, 2024 12:46pm Exocrine pancreatic insufficiency acute February 01 1:01pm Loose stools acute February 01, 2025 1:01pm Diabetes mellitus type I chronic February 01, 2025 1:01pm [employer] [facility] Work Phone: 1(717) 953-248605-15-2025 Radiology Diagnostic study note [facility] Imaging Services [address] [place] [id number] Chest 1 View (Portable) MR#: [id number] Acct: [id number] Name: HANS GONZALEZ JrSoco Rep #: [id number] : 1990 M 34 From: Chidi Cui MD PCP: Dr. Alfred Katz MD Status: R EG ER Study:Chest 1 View (Portable) Date of Exam: 11/04/24 Exam# [id number] Ordering Dr: Valery Dukes DO PROCEDURE: CHEST 1 VIEW (PORTABLE) 11/04/2024 REASON FOR EXAM: STROKE TECHNIQUE: Frontal view of the chest. COMPARISON: July 08, 2023. FINDINGS: Hardware: EKG electrodes are seen. Heart: Cardiac and mediastinal contours are stable. Lungs: No significant change in the appearance of the lungs. Bones: The bones are unremarkable. Other: RAD/Chest 1 View (Portable) IMPRESSION: Negative Chest. Reading Location: [id number] CC: Dr. Chapo Dukes, ; Dr. 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 [facility]04-29-2025 Evaluation note* Diagnosis Onset Date Resolution Status Admit Date Lumbar radiculopathy chronic Apri l 2024 10:43am Anxiety and depression chronic Ma y 2024 1:26pm Chronic diarrhea chronic October 27, 2024 1:26pm GERD (gastroesophageal reflu x disease) chronic October 27, 2024 1: 26pm Lumbar radiculopathy chronic October 27, 2024 1:26pm Type 1 diabetes mellitus chronic October 27, 2024 1:26pm Exocrine pancreatic insufficiency acute November 10, 2024 1 2:46pm Chronic diarrhea chronic October 12:46pm Diabetes mellitus type I chronic November 10, 2024 12:46pm [facility] Work Phone: 1(586) 513-870802-11-2025 Evaluation note* Diagnosis Onset Date Resolution Status Admit Date Loose stools acute July 8:51am Non-specific colitis noneactive Febr uary 2024 8:51am Musculoskeletal back pain chronic September 09, 2024 2:49pm Lumbar radiculopathy chronic Apri l 2024 10:43am Anxiety and depression chronic Ma y 2024 1:26pm Chronic diarrhea chronic October 27, 2024 1:26pm GERD (gastroesophageal reflu x disease) chronic October 27, 2024 1: 26pm Lumbar radiculopathy chronic October 27, 2024 1:26pm Type 1 diabetes mellitus chronic October 27, 2024 1:26pm Exocrine pancreatic insufficiency acute November 10, 2024 1 2:46pm Chronic diarrhea chronic October 12:46pm Diabetes mellitus type I chronic November 10, 2024 12:46pm [facility] Work Phone: 1(774) 866-223101-27-2025 Evaluation note* Diagnosis Onset Date Resolution Status Admit Date Lower extremity weakness acute July 19, 2024 1:31pm URI (upper respiratory infection) acute July 19 1:31pm Anxiety and depression chronic Ja nuary 2024 1:31pm Chronic diarrhea chronic July 19, 2024 1:31pm Myalgia chronic July 19, 2024 1:31pm Diabetes mellitus type I chronic July 29, 2024 9:39am Vitamin D deficiency chronic 2024 9:39am Loose stools acute July 8:51am Non-specific colitis noneactive 2024 8:51am Musculoskeletal back pain chronic September 09, 2024 2:49pm Lumbar radiculopathy chronic Apri l 2024 10:43am Anxiety and depression chronic Ma 2024 1:26pm Chronic diarrhea chronic October 27, 2024 1:26pm GERD (gastroesophageal reflu x disease) chronic October 27, 2024 1: 26pm Lumbar radiculopathy chronic October 27, 2024 1:26pm Type 1 diabetes mellitus chronic October 27, 2024 1:26pm [facility] Work Phone: 1(275) 378-378806-26-2024 NoteHNO ID: [id number] Author: JOSE DAMON PA-C Service: ? Author Type: Physician Geometry Tutor Type: Progress Notes Filed: 12/17/2023 17:56 Note Text: This note was created using NoteWriter. Subjective Hans Gonzalez is a 33 year old male. HPI Patient presents with a chief complaint of left-sided neck pain over the past 3 days. He had noticed some sores on his scalp that were painful. He does have pain when trying to move his neck from [id number] and feels like his muscle is tight on the back of his left neck. No fever. He denies history of MRSA. He denies any injury to his neck. He states he just woke up with this and thought he slept wrong. No OTC meds used. No pain radiating to his arms. No weakness numbness or tingling in his arms. Review of Systems Constitutional: Negative. HENT: Negative. Respiratory: Negative. Cardiovascular: Negative. Gastrointestinal: Negative. Musculoskeletal: Positive for neck pain. Skin: Positive for rash and wound. All other systems reviewed and are negative. PAST MEDICAL HISTORY Diagnosis Date Altered mental status Anxiety and depression Attention deficit disorder with hyperactivity(314.01) Gastritis GERD (gastroesophageal reflux disease) Heart attack (HCC) states at age 19-no damage Hemorrhoids Panic attacks PUD (peptic ulcer disease) Snoring Syncope states in past 11/2015 Type I (juvenile type) diabetes mellitus without mention of complication, not stated as uncontrolled (HCC) Current Outpatient Medications Medication Sig Dispense Refill insulin degludec (TRESIBA FLEXTOUCH) 100 unit/mL (3 mL) injection pen INJECT 18 UNITS SUBCUTANEOUSLY AT BEDTIME citalopram (CELEXA) 20 mg tablet Take 1 tablet by mouth once daily. 90 tablet 1 INSULIN GLARGINE,HUM.REC.ANLOG (BASAGLAR KWIKPEN SUBCUTANEOUS) Inject 30 Units subcutaneously daily before breakfast. cholecalciferol, Vitamin D3, (VITAMIN D3) 50,000 unit cap capsule Take 1 capsule by mouth once each week. 12 capsule 1 metoclopramide HCl (REGLAN) 10 mg tablet Take 1 tablet by mouth before meals and at bedtime. 30min before meals. 120 tablet 0 Omeprazole 40 mg capsule take 1 capsule by mouth once daily 90 capsule 3 acetaminophen (TYLENOL) 325 mg tablet Take 650 mg by mouth every 6 hours as needed. insulin aspart (NOVOLOG FLEXPEN) 100 unit/mL inpn Take 8-10 units each meal 5 Pen 11 blood sugar diagnostic (FREESTYLE LITE STRIPS) test strip Test blood sugar 4-5 times daily. Dx: diabetes type 1. Insulin: Yes 150 Strip 11 doxycycline (VIBRA-TABS) 100 mg tablet Take 1 tablet by mouth two times a day for 7 days. 14 tablet 0 cyclobenzaprine (FLEXERIL) 10 mg tablet Take 1 tablet by mouth three times a day as needed. 15 tablet 0 naproxen (NAPROSYN) 500 mg tablet Take 1 tablet by mouth two times a day as needed (for pain/inflammation). Take with food. 14 tablet 0 No current facility-administered medications for this visit. PAST SURGICAL HISTORY Procedure Laterality Date COLONOSCOPY 05/08/2016 Hemorrhoids, Gastritis. EGD 05/08/2016 Normal PAST SURGICAL HISTORY OF Right 2016 trigger finger FAMILY HISTORY Problem Relation Age of Onset [...] per week Types: Marijuana Comment: marijuana use Objective BP 133/89 Pulse 98 Temp 36.4 ?C (97.5 ?F) Resp 18 Wt 64.7 kg (142 lb 10.2 oz) SpO2 99% BMI 23.02 kg/m? Physical Exam Vitals reviewed. Constitutional: Appearance: Normal appearance. HENT: Head: Comments: Patient has 2 1 and half centimeter raised red scabbed lesions on the left occipital scalp. Also has multiple scabbed areas on the left trapezius and paracervical area. He has a few scabs on the right trapezius area and on his arms as well. He is tender along the left paracervical musculature. No lymphadenopathy palpated. Has pain with rotation of the neck. Full flexion and extension of the neck. Normal strength and sensation in upper extremities. Normal hand grasp strength. Neurological: Mental Status: He is alert. Assessment and Plan ASSESSMENT/PLAN: 1. Infection of scalp - ICD9: 686.9, ICD10: L08.9 (primary diagnosis) Patient has 2 areas of infection on his scalp with scab lesions on his trapezius bilaterally. Shingles was in the differential however with the scabs being on the right side as well favored more bacterial infection. Given doxycycline to cover for this. Also given naproxen and Flexeril as he is having some spasm in his left paraspinal musculature. Follow-up with PCP if (more content not included)...[facility]06-26-2024 History of Present illness Narrative* Jose Damon PA-C - 12/17/2023 5:46 PM EDT Images from the original note were not included. This note was created using NoteWriter. Subjective Hans Gonzalez is a 33 year old male. HPI Patient presents with a chief complaint of left-sided neck pain over the past 3 days. He had noticed some sores on his scalp that were painful. He does have pain when trying to move his neck from [id number] and feels like his muscle is tight on the back of his left neck. No fever. He denies history of MRSA. He denies any injury to his neck. He states he just woke up with this and thought he slept wrong. No OTC meds used. No pain radiating to his arms. No weakness numbness or tingling in his arms. Review of Systems Constitutional: Negative. HENT: Negative. Respiratory: Negative. Cardiovascular: Negative. Gastrointestinal: Negative. Musculoskeletal: Positive for neck pain. Skin: Positive for rash and wound. All other systems reviewed and are negative. PAST MEDICAL HISTORY Diagnosis Date Altered mental status Anxiety and depression Attention deficit disorder with hyperactivity(314.01) Gastritis GERD (gastroesophageal reflux disease) Heart attack (HCC) states at age 19-no damage Hemorrhoids Panic attacks PUD (peptic ulcer disease) Snoring Syncope states in past 11/2015 Type I (juvenile type) diabetes mellitus without mention of complication, not stated as uncontrolled (HCC) Current Outpatient Medications Medication Sig Dispense Refill insulin degludec (TRESIBA FLEXTOUCH) 100 unit/mL (3 mL) injection pen INJECT 18 UNITS SUBCUTANEOUSLY AT BEDTIME citalopram (CELEXA) 20 mg tablet Take 1 tablet by mouth once daily. 90 tablet 1 INSULIN GLARGINE,HUM.REC.ANLOG (BASAGLAR KWIKPEN SUBCUTANEOUS) Inject 30 Units subcutaneously dailybefore breakfast. cholecalciferol, Vitamin D3, (VITAMIN D3) 50,000 unit cap capsule Take 1 capsule by mouth once eachweek. 12 capsule 1 metoclopramide HCl (REGLAN) 10 mg tablet Take 1 tablet by mouth before meals and at bedtime. 30min before meals. 120 tablet 0 Omeprazole 40 mg capsule take 1 capsule by mouth once daily 90 capsule 3 acetaminophen (TYLENOL) 325 mg tablet Take 650 mg by mouth every 6 hours as needed. insulin aspart (NOVOLOG FLEXPEN) 100 unit/mL inpn Take 8-10 units each meal 5 Pen 11 blood sugar diagnostic (FREESTYLE LITE STRIPS) test strip Test blood sugar 4-5 times daily. Dx: diabetes type 1. Insulin: Yes 150 Strip 11 doxycycline (VIBRA-TABS) 100 mg tablet Take 1 tablet by mouth two times a day for 7 days. 14 tablet0 cyclobenzaprine (FLEXERIL) 10 mg tablet Take 1 tablet by mouth three times a day as needed. 15 tablet 0 naproxen (NAPROSYN) 500 mg tablet Take 1 tablet by mouth two times a day as needed (for pain/inflammation). Take with food. 14 tablet 0 No current facility-administered medications for this visit. PAST SURGICAL HISTORY Procedure Laterality Date COLONOSCOPY 05/08/2016 Hemorrhoids, Gastritis. EGD 05/08/2016 Normal PAST SURGICAL HISTORY OF Right 2016 trigger finger FAMILY HISTORY Problem Relation Age of Onset [...] per week Types: Marijuana Comment: marijuana use Objective BP 133/89 Pulse 98 Temp 36.4 C (97.5 F) Resp 18 Wt 64.7 kg (142 lb 10.2 oz) SpO2 99% BMI 23.02 kg/m Physical Exam Vitals reviewed. Constitutional: Appearance: Normal appearance. HENT: Head: Comments: Patient has 2 1 and half centimeter raised red scabbed lesions on the left occipital scalp. Also has multiple scabbed areas on the left trapezius and paracervical area. He has a few scabs on the right trapezius area and on his arms as well. He is tender along the left paracervical musculature. No lymphadenopathy palpated. Has pain with rotation of the neck. Full flexion and extension ofthe neck. Normal strength and sensation in upper extremities. Normal hand grasp strength. Neurological: Mental Status: He is alert. Assessment and Plan ASSESSMENT/PLAN: 1. Infection of scalp - ICD9: 686.9, ICD10: L08.9 (primary diagnosis) Patient has 2 areas of infection on his scalp with scab lesions on his trapezius bilaterally. Shingles was in the differential however with the scabs being on the right side as well favored more bacterial infection. Given doxycycline to cover for this. Also given naproxen and Flexeril as he is having some spasm in his left paraspinal musculature. Follow-up with PCP if not improving. Patient agreeable. 2. Neck muscle spasm - ICD9: 728.85, ICD10: M62.838 Jose Damon PA-C [facility] Discharge summary Author Ninoska Welch [facility] July 12, 2023 1:16pm Note Date/Time July 12, 2023 1 2:14pm [facility] Medical Records Department [address] [place] [id number] Discharge Summary 07/12/23 1214 MR#: [id number] Acct: [id number] Name: HANS GONZALEZ JrSoco Rep #:[id number] : 1990 33 From: Ninoska Welch MD PCP: Dr. Alfred Katz MD Status:A DM IN Location: [place] [address] Providers Date of Admission: 07/08/23 Date of Discharge: 07/12/23 Primary Care Physician: Dr. Alfred Katz MD Consultations 07/10/23 06:43 Consult: Nephrology Routine Consulting Provider: Kalyani Hampton Reason for Consult: worsening kidney function EMERGENT Consult: No MD Notified: Yes Date Notified: 07/10/23 Time Notified: 07:05 Method of Notification: Answering Service Reason For Visit: KIDNEY FAILURE, DKA Diagnosis Discharge Diagnosis (1) Acute kidney injury: Status: Acute Code(s): N17.9 - Acute kidney failure, unspecified (2) Diabetes mellitus type I: Status: Chronic Qualifiers: Diabetes mellitus complication status: with hyperglycemia Qualified Code(s): E10.65 - Type 1 diabetes mellitus with hyperglycemia (3) Lactic acidosis: Status: Acute Code(s): E87.2 - Acidosis Plan #Acute kidney failure and edema- improving # Hepatic and biliary congestion- improving #Hyperglycemia in setting of type I diabetes #Lactic acid elevation and leukocytosis # Hypernatremia- resolved #Cocaine positive UDS -Does not seem patient is on anything that would be false positive for this Medications at Discharge Home Medications flash glucose scanning reader (FreeStyle Celena 2 Fowler) #1 ea 08/18/20 flash glucose sensor (FreeStyle Celena 2 Sensor kit) #2 ea 02/19/23 insulin aspart U-100 100 unit/mL (3 mL) subcutaneous pen (Novolog FlexPen U-100 Insulin aspart) 12 unit subcut TIDCM DIABETES 07/08/23 amoxicillin 875 mg-potassium clavulanate 125 mg tablet 1 tab PO BID 3 days #6 tabs 07/12/23 Hospital Course Summary of Care Provided Minutes Spent on Discharge: 35 Hospital Course: HANS GONZALEZ, is a 33M hx GERD, DMI, anxiety, tobacco use who presented to [facility] 07/08/2023 due to general malaise and nausea. He had been feeling unwell for about 3 to 4 days with poor p.o. intake and some blurry vision as well as some chills with no fever. Additionally has had little bit ofnasal congestion and sore throat as well as nonproductive cough, has been havingnausea and has been unable to keep anything down and given patient is generally not doing well he was brought to the emergency department. In the ED patient initially tachycardic with heart rate in 140s with blood pressure 94/55 respiratory rate of 30, found to be hemoconcentrated with white blood cell countof 19.4, hemoglobin 17, platelet count 581 and patient with BUN of 36 and creatinine of 3.61 up from baseline of around 1, his bicarb was normal but his anion gap was 23, blood glucose 212 and he had a VBG which showed a pH of 7.46, HCO3 of 20 and CO2 of 21 with moderate acetone. Hospitalist contacted for admission. Patient had multifaceted acid-base picture with an anion gap of 23 and glucose of 212 but initially normal bicarb and pH slightly alkalotic howeverpatient with significant volume contraction with suspected contraction alkalosisand he also had moderate acetone. He was started on insulin drip to titrate to gap closure and patient aggressively fluid resuscitated. As p.o. improved patient was transition to long-acting insulin. During his hospitalization he also had some vague infectious complaints including cough, nasal congestion, sore throat and did have nausea and vomiting. He had an elevated white blood cell count, Pro-Cem, lactic acid and improved with IV fluids, antibiotics, supportive care. Did have a kidney ultrasound which showed some perinephric stranding but cultures overall no growth to date however patient had convincing criteria for infection so plan was discharged to complete course of Augmentin. During his hospitalization he also had significant MIREILLE on presentation that improved initially with IV fluids however began to worsen again despite fluid resuscitation. Nephrology consulted, CT scan showed anasarca and IV fluids stopped and patient started on IV Lasix and improved. Kidney function improvingand on day of discharge patient reports he is eating well, nausea is gone, he has been up ambulating and overall feeling well and would like to go home, discussed with nephrology and it was felt it was reasonable to do so and follow- up on an outpatient basis. 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 If you do not hear from theiroffice in 1-2 business days please call their office to schedule hospital follow-up appointment upon discharge. -Would recommend lab work (BMP) to check your kidney function in 2 to 3 days through your primary care physician's office. Please call their office upon discharge to obtain order for lab work. -Please call your primary care provider's office upon discharge to schedule a hospital follow up within 1 week. -For any concerning signs or symptoms please call 911 or proceed to the nearest emergency department Physical Exam Narrative General: Alert, oriented, no apparent distress HEENT: Atraumatic, normocephalic Eyes: Anicteric, normal conjunctiva, extraocular movements grossly intact Neck: Supple Respiratory: Clear to auscultation bilaterally, normal respiratory effort Cardiovascular: Regular rate and rhythm GI: Soft, no tenderness, no rebound, guarding, rigidity, nondistended Extremities: Less edematous Musculoskeletal: Moving all extremities Neuro: No overt focal neurological deficits Skin: No rashes appreciated Psych: More cooperative today Medical Records Data Medical Nutrition Assessment Dietitian: Malnutrition Criteria Met Start: 07/09/23 11:55 Freq: Status: Active Protocol: Document 07/09/23 11:55 RMA (Rec: 07/09/23 11:55 RMA [id number]) Nutrition Malnutrition Evidence of Malnutrition Exists Yes Malnutrition (severe): Acute Illness/Injury,Chronic Evidenced By Suboptimal Energy Intake ( Severe),Weight Loss (Severe) Intake Problem Inadequate Oral Intake Etiology related to altered GI function /hyperglycemia Signs/Symptoms as evidenced by NPO/clear liquid diet x day 2 Status Active Problem Clinical Problem Chronic Disease or Condition Related Malnutrition Etiology related to inadequate oral intake, dietary noncompliance, altered GI function and hyperglycemia Signs/Symptoms as evidenced by unintentional weight loss ~5-7% x 1 month, BMI 20.2 and PO meeting less than 50% estimated nutrition needs x past 1 month Status Active Problem Recommendation Dietitian Recommendations/Changes Recommend advance diet as tolerated to 2000 calorie/ consistent carbohydrate. PO Glucerna Shake as diet advanced from clear liquids. Diet education as pt willing to receive. Weight / BMI Weight Weight: 59.3 kg Body Mass Index (BMI) 20.5 ABG / Lab / Microbiology Data 07/12/23 06:17 07/12/23 06:17 Laboratory: Laboratory Results - last 24 hr 07/11/23 14:23: POC Glucose 490 H* 07/11/23 17:29: POC Glucose 360 H 07/11/23 20:36: POC Glucose 319 H 07/12/23 05:28: POC Glucose 212 H 07/12/23 06:17: WBC 4.6, RBC 3.85 L, Hgb 12.4 L, Hct 35.7 L, MCV 92.7, MCH 32.2 H, MCHC 34.7 D, RDW Std Deviation 41.1, RDW Coeff of Nathaniel 11.9, Plt Count 176, MPV 9.5, Immature Gran % (Auto) 0.400, Neut % (Auto) 52.4, Lymph % (Auto) 33.0, Sac % (Auto) 10.7 H, Eos % (Auto) 2.4, Baso % (Auto) 1.1 H, Absolute Neuts (auto) 2.4, Absolute Lymphs (auto) 1.51, Nucleated RBC % 0, Sodium 139, Potassium 3.6, Chloride 106, Carbon Dioxide 25.0, Anion Gap 8, BUN 22 H, Creatinine 3.27 H, Estim Creat Clear Calc 26.45, Est GFR (MDRD) Af Amer 28 L, Est GFR (MDRD) Non-Af 23 L, BUN/Creatinine Ratio 6.7 L, Glucose 281 H, Calcium 9.2, Total Bilirubin 1.00, AST 42 H, ALT 36, Alkaline Phosphatase 173 H, Total Protein 5.8 L, Albumin 2.6 L, Globulin 3.2, Albumin/Globulin Ratio 0.8 L 07/12/23 11:14: POC Glucose 272 H Microbiology: Microbiology 07/11/23 13:41 Stool Stool Occult Blood (LIANNA) - Final 07/08/23 16:15 Urine, Clean Catch Urine Culture - Final Culture exhibits no growth. 07/09/23 18:55 Stool Enteric Bacteriology - Final 07/09/23 18:55 Stool Clostridioides difficile (PCR) - Final 07/08/23 12:21 Mucosa - Nose Respiratory Panel (PCR) - Final 07/08/23 08:30 Mucosa - Nasopharyngeal SARS-CoV-2, Influenza & RSV (PCR) - Final D/C Instructions Discharge Diet: Carb Control Diet Return to work on: 07/16/23 Meaningful Use Info Meaningful Use Diagnoses (Choose all that apply): None applicable Discharge Plan Admission Admit Date/Time: 07/08/23 10:54 Primary Reason for Your Visit: Nausea, generally feeling unwell Attending Provider: Ninoska Welch Primary Care Provider: Alfred Katz Consulting Providers: Kalyani Hampton Instructions Patient Instructions: Diabetes and Kidney Disease Additional Instructions / Restrictions: DISCHARGE INSTRUCTIONS PLEASE READ *Please take this with you to your next doctors appointment* -Resume your home insulin regimen and 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 If you do not hear from theiroffice in 1-2 business days please call their office to schedule hospital follow-up appointment upon discharge. -Would recommend lab work (BMP) to check your kidney function in 2 to 3 days through your primary care physician's office. Please call their office upon discharge to obtain order for lab work. -Please call your primary care provider's office upon discharge to schedule a hospital follow up within 1 week. -For any concerning signs or symptoms please call 911 or proceed to the nearest emergency department Discharge Orders/Prescriptions Prescriptions: New amoxicillin-pot clavulanate 875-125 mg tablet 1 tab PO BID 3 Days Qty: 6 0RF Continued insulin aspart U-100 [Novolog FlexPen U-100 Insulin] 100 unit/mL (3 mL) insulin pen 12 unit subcut TIDCM No Action (DME) FreeStyle Celena 2 Fowler Misc See Rx Instructions .ROUTE .MEDSUPPLY Qty: 1 0RF Rx Instructions: As directed (DME) FreeStyle Celena 2 Sensor Kit See Rx Instructions .ROUTE .MEDSUPPLY Qty: 2 8RF Rx Instructions: 1 sensor q 14 days Referrals / Follow Up: Alfred Katz MD [Primary Care Provider] - Within 1 Week Kalyani Hampton MD [Med Staff - Consulting] - ( -Please follow-up with nephrology upon discharge. If you do not hear from the office in 1-2 business days please call their office to schedule hospital follow-up appointment upon discharge.) Disposition Disposition (needs filled in before D/C Order can be placed): Home, Self Care Charges/Coding Visit Charges Inpatient E&M: 51529 Disch Hosp >30min 07/12/23 1316 <Electronically signed by Ninoska Welch MD> Cosigner Signature (if applicable): CC: Dr. Alfred Katz MD; Dr. Ninoska Welch MD~ Signed [facility] Work Phone: 1(943) 836-951501-20-2024 Discharge summary Author Ninoska Welch [facility] July 12, 2023 12:13pm Note Date/Time July 12, 2023 1 2:05pm [facility] Medical Records Department [address] [place] [address] Instructions for Home/Discharge Instructions 07/12/23 1203 MR#: [id number] Acct: [id number] Name: HANS GONZALEZ Rep #:[id number] : 1990 33 From: Ninoska Welch MD PCP: Dr. Alfred Katz MD Status:A DM IN Discharge Instructions Diet Discharge Diet: Carb Control Diet Activity Discharge Activity: Return to Normal Activity Return to work on:: 07/16/23 Follow Up Care Test Results: Test results from this visit will be discussed in further detail at your follow- up appointment, if applicable. 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 If you do not hear from theiroffice in 1-2 business days please call their office to schedule hospital follow-up appointment upon discharge. -Would recommend lab work (BMP) to check your kidney function in 2 to 3 days through your primary care physician's office. Please call their office upon discharge to obtain order for lab work. -Please call your primary care provider's office upon discharge to schedule a hospital follow up within 1 week. -For any concerning signs or symptoms please call 911 or proceed to the nearest emergency department Discharge Orders/Prescriptions Prescriptions: New amoxicillin-pot clavulanate 875-125 mg tablet 1 tab PO BID 3 Days Qty: 6 0RF Continued insulin aspart U-100 [Novolog FlexPen U-100 Insulin] 100 unit/mL (3 mL) insulin pen 12 unit subcut TIDCM No Action (DME) FreeStyle Celena 2 Fowler Misc See Rx Instructions .ROUTE .MEDSUPPLY Qty: 1 0RF Rx Instructions: As directed (DME) FreeStyle Celena 2 Sensor Kit See Rx Instructions .ROUTE .MEDSUPPLY Qty: 2 8RF Rx Instructions: 1 sensor q 14 days Referrals / Follow Up: Alfred Katz MD [Primary Care Provider] - Within 1 Week Kalyani Hampton MD [Med Staff - Consulting] - ( -Please follow-up with nephrology upon discharge. If you do not hear from the office in 1-2 business days please call their office to schedule hospital follow-up appointment upon discharge.) Disposition Disposition (needs filled in before D/C Order can be placed): Home, Self Care 07/12/23 1213<Electronically signed by Ninoska Welch MD>Ninoska Welch MD CC: Dr. Alfred Katz MD; Dr. Kalyani Hampton MD ~ Signed [facility] Work Phone: 1(178) 600-806801-19-2024 Progress note Author Ninoska Welch [facility] July 11, 2023 8:55am Note Date/Time July 11, 2023 6 :49am [facility] Medical Records Department [address] [place] [address] Progress Note - Hospitalist 07/11/23 0644 MR#: [id number] Acct: [id number] Name: HANS GONZALEZ Jr. Rep #:[id number] : 1990 33 From: Ninoska Welch MD PCP: Dr. Alfred Katz MD Status:A DM IN Location: ICU CVICU20 2-1 Reason for Visit Reason for Visit: Diagnoses Type 1 diabetes mellitus with hyperglycemia (07/08/23) Acidosis (07/08/23) Acute kidney failure, unspecified (07/08/23) Subjective Subjective Still some nausea and diarrhea, said he thinks he might of had some red and somedark in his stool, still nauseous but better able to control it, would be interested in advancing diet slightly to see how he tolerates this, feels swollen is the same but not worse, does still endorse he feels like he is urinating okay Objective Data Objective Data Vital Signs: Vital Signs Temp Pulse Resp BP Pulse Ox O2 Del Method O2 Flow Rate 97.4 F L 52 L 15 146/91 H 100 Room Air 2 07/11/23 05:00 07/11/23 05:00 07/11/23 05:00 07/11/23 05:00 07/11/23 05:00 07/11/23 05:00 07/08/23 22:00 Oxygen Flow Rate (L/min) 2 Oxygen Delivery Method Room Air Weight: 57.6 kg Body Mass Index (BMI) 19.8 Intake & Output: Intake and Output for Last 24 Hours 07/09/23 07/10/23 07/11/23 23:59 23:59 23:59 Intake Total 3992.98 / 4042.98 4765.07 / 4985.07 270 / 270 Output Total 300 / 450 150 / 150 Balance 3692.98 / 3592.98 4615.07 / 4835.07 270 / 270 Medical Nutrition Assessment Dietitian: Malnutrition Criteria Met Start: 07/09/23 11:55 Freq: Status: Active Protocol: Document 07/09/23 11:55 RMA (Rec: 07/09/23 11:55 RMA [id number]) Nutrition Malnutrition Evidence of Malnutrition Exists Yes Malnutrition (severe): Acute Illness/Injury,Chronic Evidenced By Suboptimal Energy Intake ( Severe),Weight Loss (Severe) Intake Problem Inadequate Oral Intake Etiology related to altered GI function /hyperglycemia Signs/Symptoms as evidenced by NPO/clear liquid diet x day 2 Status Active Problem Clinical Problem Chronic Disease or Condition Related Malnutrition Etiology related to inadequate oral intake, dietary noncompliance, altered GI function and hyperglycemia Signs/Symptoms as evidenced by unintentional weight loss ~5-7% x 1 month, BMI 20.2 and PO meeting less than 50% estimated nutrition needs x past 1 month Status Active Problem Recommendation Dietitian Recommendations/Changes Recommend advance diet as tolerated to 2000 calorie/ consistent carbohydrate. PO Glucerna Shake as diet advanced from clear liquids. Diet education as pt willing to receive. Lab / Micro Data 07/11/23 04:38 07/11/23 04:38 Labs: Laboratory Results - last 24 hr 07/08/23 07:53: Diff Path Review Reviewed 07/10/23 06:32: POC Glucose 96 07/10/23 07:34: POC Glucose 110 H 07/10/23 08:31: POC Glucose 135 H 07/10/23 08:40: Urine Color Straw, Urine Clarity Clear, Urine pH 6.0, Ur Specific [place] 1.010, Urine Protein 30 H, Urine Glucose (UA) 250 H, Urine Ketones 5 H, Urine Occult Blood 10 H, Urine Nitrite Negative, Urine Bilirubin Negative, Urine Urobilinogen Normal, Ur Leukocyte Esterase Negative, Urine RBC 0SEEN, Urine WBC 0-5 SEEN, Ur Squamous Epith Cells 0-5 SEEN, Urine Bacteria 0 SEEN, Urine Mucus 0 SEEN, Urine Osmolality 297, Ur Random Sodium 46, Urine Potassium 32.0, Urine Chloride 55, Urine Urea Nitrogen 283 07/10/23 10:42: POC Glucose 173 H 07/10/23 13:03: POC Glucose 209 H 07/10/23 13:25: ESR 7, Sodium 141, Potassium 5.2 H, Chloride 116 H, Carbon Dioxide 18.0 L, Anion Gap 7, BUN 19 H, Creatinine 3.49 H, Estim Creat Clear Calc24.19, Est GFR (MDRD) Af Amer 26 L, Est GFR (MDRD) Non-Af 21 L, BUN/Creatinine Ratio 5.4 L, Glucose 274 H, Calcium 7.9 L, Total Bilirubin 2.00 H, AST 294 H, ALT 64 H, Alkaline Phosphatase 177 H, Total Creatine Kinase 303, Total Protein 5.7 L, Albumin 2.6 L, Globulin 3.1, Albumin/Globulin Ratio 0.8 L, Amylase 38, Lipase 55 07/10/23 14:46: POC Glucose 355 H 07/10/23 17:13: POC Glucose 260 H 07/10/23 19:49: POC Glucose 155 H 07/10/23 22:30: POC Glucose 170 H 07/11/23 01:28: POC Glucose 264 H 07/11/23 04:34: POC Glucose 208 H 07/11/23 04:38: WBC 5.9, RBC 3.77 L, Hgb 11.7 L, Hct 36.0 L, MCV 95.5 H, MCH 31.0, MCHC 32.5, RDW Std Deviation 43.6, RDW Coeff of Nathaniel 12.5, Plt Count 176, MPV 9.7, Immature Gran % (Auto) 0.700, Neut % (Auto) 65.2, Lymph % (Auto) 21.0, Sac % (Auto) 10.2 H, Eos % (Auto) 2.4, Baso % (Auto) 0.5, Absolute Neuts (auto)3.9, Absolute Lymphs (auto) 1.24, Nucleated RBC % 0, Sodium 142, Potassium 4.7, Chloride 116 H, Carbon Dioxide 17.0 L, Anion Gap 9, BUN 22 H, Creatinine 3.52 H,Estim Creat Clear Calc 23.99, Est GFR (MDRD) Af Amer 26 L, Est GFR (MDRD) Non-Af21 L, BUN/Creatinine Ratio 6.2 L, Glucose 250 H, Calcium 8.0 L Micro: Microbiology 07/08/23 16:15 Urine, Clean Catch Urine Culture - Final Culture exhibits no growth. 07/09/23 18:55 Stool Enteric Bacteriology - Final 07/09/23 18:55 Stool Clostridioides difficile (PCR) - Final 07/08/23 12:21 Mucosa - Nose Respiratory Panel (PCR) - Final 07/08/23 08:30 Mucosa - Nasopharyngeal SARS-CoV-2, Influenza & RSV (PCR) - Final Radiography Diagnostic Testing: Radiology Impression Abdomen/Pelvis CT 07/10/23 11:07 IMPRESSION: * Findings compatible with fluid overload, including interstitial pulmonary edema, trace right pleural effusion, diffuse periportal edema, gallbladder wall edema and trace ascites. * There are couple punctate nonobstructive calculi in the right kidney. Electronically Signed: Esteban Cruz MD at 11:53 EST , Liver Ultrasound 07/10/23 15:28 IMPRESSION: No cholelithiasis or evidence of cholecystitis. As seen on the prior CT, there is edematous gallbladder wall thickening, and fluid in the gallbladder fossa related to the patient''s generalized fluid overloaded status. Electronically Signed: Esteban Cruz MD at 16:52 EST , Physical Exam Narrative General: Alert, oriented, no apparent distress HEENT: Atraumatic, normocephalic Eyes: Anicteric, normal conjunctiva, extraocular movements grossly intact Neck: Supple Respiratory: Clear to auscultation bilaterally, normal respiratory effort Cardiovascular: Regular rate and rhythm GI: Soft, no significant tenderness, no rebound, guarding, rigidity, nondistended Extremities: Look slightly edematous especially on arms and face but unchanged from yesterday evening Musculoskeletal: Moving all extremities Neuro: No overt focal neurological deficits Skin: No rashes appreciated Psych: More cooperative today Assessment & Plan Assessment/Plan (1) Acute kidney injury: (2) Diabetes mellitus type I: QUALIFIERS: Diabetes mellitus complication status: with hyperglycemia Qualified Code(s): E10.65 - Type 1 diabetes mellitus with hyperglycemia (3) Lactic acidosis: PLAN: Plan #Acute kidney failure -Creatinine 3.61 with a baseline around 1, aggressively hydrate -Improving with fluids -Patient profoundly volume depleted, if does not continue to improve can furtherinvestigate however given all cell lines increased as well as clinical picture and nausea and vomiting with poor p.o. suspect that this is related to volume depletion -07/09: Initially improved but is somewhat plateaued, creatinine 1.94 this a.m., will obtain kidney ultrasound and urine lytes -07/10: Kidney function had improved with fluids however started worsening subsequent fluids and nephrology was consulted and ordered further labs and CT, CT showed edema and multiple areas and fluids stopped, kidney function is further worsened, nephrology on board -07/11: Kidney function continue to worsen yesterday, fluids were stopped, kidneyfunction roughly the same today as yesterday afternoon, based on I's and O's patient not 13.5 L however unclear if he has been compliant with I's and O's as it reports output of 450 total and he reports urinating normally, bladder was distended on kidney ultrasound however it was not clear what time he had tried to void prior to that, will obtain postvoid to see if patient retaining as bladder also distended on CT and this may explain initial improvement with subsequent worsening. Nephrology following, appreciate assistance # Hepatic and biliary congestion -Elevated liver enzymes and bili however left upper quadrant shows gallbladder edema consistent with patient's fluid overloaded state -Continue to follow liver panel -If patient develops any symptoms of acute cholecystitis will need to reevaluatebut presently not having any right upper quadrant pain #Hyperglycemia in setting of type I diabetes -Patient with confounding acid-base picture -Patient with glucose of 212, BUN elevated at 36, anion gap of 23 but had normalbicarb and pH slightly alkalotic -Did have moderate acetone and elevated anion gap however -Suspect patient had profound contraction alkalosis as well as respiratory compensation given his low CO2 resulting in elevated pH -After aggressive fluid resuscitation anion gap still elevated at 20 and bicarb 18, suspect that correcting contraction alkalosis was revealing metabolic acidosis but VBG not obtained at the time so cannot confirm -Do suspect there is a mild component of DKA confounding picture -Glucose did increase to 371 and given gap and acetone patient was started on insulin drip -Additionally patient having nausea and vomiting and poor p.o., will need to monitor closely -Monitor I's and O's -BMP every 4 hours -When serum glucose is <250 mg/dl, change IV fluids to D5%1/2NS at 150 ml/hr andcontinue insulin drip as per nomogram -Aggressive fluid hydration -07/09: Acetone has been small, widely variable glucose, will transition to subcuinsulin once patient tolerating p.o., had been hypokalemic so fluids adjusted -07/10: Patient taken off of fluids and D5, glucose checks and short acting subcuinsulin, if patient is tolerating p.o. can transition with long-acting however patient not reliably taking p.o. at this time -07/11: Advance diet as tolerated, has only intermittently been tolerating clear liquids, will transition to long-acting subcu insulin when possible #Lactic acid elevation and leukocytosis -Patient with some vague complaints including cough, stuffy nose, sore throat -White blood cell count 19.4 with left shift on presentation green and patient profoundly volume depleted but has additional lactic acid elevation and slight elevation of Pro-Cem of 0.61 -Respiratory viral panel negative -Chest x-ray normal -Aggressively fluid resuscitate, given patient still with elevated heart rate, somewhat soft BP and increased lactic acid we will panculture and start on empiric antibiotics with plans to de-escalate if cultures negative but cannot rule out infection as cause or contributor at this time -07/09: Has been receiving IV fluids, awaiting cultures, continue empiric antibiotics today, all cell lines did decrease but does still have leukocytosis -07/10: Cultures no growth thus far, continue to monitor, patient on Zosyn -07/11: White blood cell count resolved, culture still no growth to date # Hypernatremia -Patient transition to D5 half-normal -07/10: Resolved on most recent draw #Cocaine positive UDS -Does not seem patient is on anything that would be false positive for this #DVT ppx: Heparin subcu Ninoska Welch MD Time spent in the patient's overall evaluation,decision-making process, review of diagnostic data, adjustment of management, discussion with other providers, nursing nursing and ancillary staff involved in patient's care documentation, 35Minutes Capacity Legal Reacher Reflex Medical hold order details:: IF a medical hold is selected below, a suggested order for a MEDICAL HOLD will reflex upon signing the document. Next of kin: [place] law dictates a PRIORITY LIST for identifying legal decision-maker/legal next of kin in the following order (LNOK): 1st: The patient?s legal guardian, if any 2nd: The patient's spouse (if status is questionable, consult Risk Management) 3rd: The patient?s adult child(faustino) (majority, if multiple children) 4th: The patient?s parents 5th: The patient?s adult siblings (majority, if multiple children siblings) Charges/Coding Visit Charges Inpatient E&M: 99316 Subs Hosp L2 07/11/23 0855 <Electronically signed by Ninoska Welch MD> Cosigner Signature (if applicable): CC: ~ Signed [facility] Work Phone: 1(122) 503-436801-18-2024 Progress note Author Ninoska Welch [facility] July 10, 2023 6:14pm Note Date/Time July 10, 2023 6 :08pm [facility] Medical Records Department [address] [place] [address] Progress Note - Hospitalist 07/10/23 0641 MR#: [id number] Acct: [id number] Name: GRETCHENLGHANS EZ Schulz Rep #:[id number] : 1990 33 From: Ninoska Welch MD PCP: Dr. Alfred Katz MD Status:A DM IN Location: ICU CVICU20 2-1 Reason for Visit Reason for Visit: Diagnoses Type 1 diabetes mellitus with hyperglycemia (07/08/23) Acidosis (07/08/23) Acute kidney failure, unspecified (07/08/23) Subjective Subjective Patient still feeling intermittently nauseous, also has some chest discomfort and feels his hands are puffy, still having some diarrhea but it is slowed down,tolerating clear liquids somewhat better than yesterday, reports he is urinatingokay Objective Data Objective Data Vital Signs: Vital Signs Temp Pulse Resp BP Pulse Ox O2 Del Method O2 Flow Rate 97.0 F L 60 19 H 134/95 H 97 Room Air 2 07/10/23 06:00 07/10/23 06:00 07/10/23 06:00 07/10/23 06:00 07/10/23 06:00 07/10/23 06:00 07/08/23 22:00 Oxygen Flow Rate (L/min) 2 Oxygen Delivery Method Room Air Weight: 57.9 kg Body Mass Index (BMI) 20.0 Intake & Output: Intake and Output for Last 24 Hours 07/08/23 07/09/23 07/10/23 23:59 23:59 23:59 Intake Total 5005.96 / 5005.96 3992.98 / 4042.98 1392.20 / 1392.20 Output Total 300 / 450 150 / 150 Balance 5005.96 / 4905.96 3692.98 / 3592.98 1242.20 / 1242.20 Medical Nutrition Assessment Dietitian: Malnutrition Criteria Met Start: 07/09/23 11:55 Freq: Status: Active Protocol: Document 07/09/23 11:55 RMA (Rec: 07/09/23 11:55 RMA [id number]) Nutrition Malnutrition Evidence of Malnutrition Exists Yes Malnutrition (severe): Acute Illness/Injury,Chronic Evidenced By Suboptimal Energy Intake ( Severe),Weight Loss (Severe) Intake Problem Inadequate Oral Intake Etiology related to altered GI function /hyperglycemia Signs/Symptoms as evidenced by NPO/clear liquid diet x day 2 Status Active Problem Clinical Problem Chronic Disease or Condition Related Malnutrition Etiology related to inadequate oral intake, dietary noncompliance, altered GI function and hyperglycemia Signs/Symptoms as evidenced by unintentional weight loss ~5-7% x 1 month, BMI 20.2 and PO meeting less than 50% estimated nutrition needs x past 1 month Status Active Problem Recommendation Dietitian Recommendations/Changes Recommend advance diet as tolerated to 2000 calorie/ consistent carbohydrate. PO Glucerna Shake as diet advanced from clear liquids. Diet education as pt willing to receive. Lab / Micro Data 07/10/23 03:05 07/10/23 13:25 Labs: Laboratory Results - last 24 hr 07/09/23 07:00: Sodium 146 H, Potassium 3.9, Chloride 115 H, Carbon Dioxide 24.0, Anion Gap 7, BUN 22 H, Creatinine 2.20 H, Estim Creat Clear Calc 38.84, Est GFR (MDRD) Af Amer 44 L, Est GFR (MDRD) Non-Af 36 L, BUN/Creatinine Ratio 10.0, Glucose 263 H, Calcium 8.2 L 07/09/23 07:23: POC Glucose 281 H 07/09/23 08:25: POC Glucose 209 H 07/09/23 09:50: POC Glucose 116 H 07/09/23 10:44: POC Glucose 105 01/17/24 11:39: POC Glucose 113 H 07/09/23 12:15: Urine Osmolality 529, Ur Random Sodium 48, Urine Creatinine 122.00, Urine Potassium 40.0, Urine Chloride 51, Urine Urea Nitrogen 573 07/09/23 12:47: POC Glucose 130 H 07/09/23 14:13: POC Glucose 101 07/09/23 14:20: Sodium 149 H, Potassium 3.4 L, Chloride 118 H, Carbon Dioxide 24.0, Anion Gap 7, BUN 21 H, Creatinine 2.81 H, Estim Creat Clear Calc 30.41, Est GFR (MDRD) Af Amer 33 L, Est GFR (MDRD) Non-Af 27 L, BUN/Creatinine Ratio 7.5 L, Glucose 107 H, Calcium 7.8 L 07/09/23 15:17: POC Glucose 82 07/09/23 16:14: POC Glucose 88 07/09/23 17:19: POC Glucose 121 H 07/09/23 19:42: POC Glucose 142 H 07/09/23 20:38: POC Glucose 176 H 07/09/23 21:32: POC Glucose 159 H 07/09/23 22:27: POC Glucose 106 07/09/23 23:31: POC Glucose 105 07/10/23 00:32: POC Glucose 99 07/10/23 02:31: POC Glucose 87 07/10/23 03:05: WBC 5.2, RBC 3.23 L, Hgb 10.3 L, Hct 31.5 L, MCV 97.5 H, MCH 31.9, MCHC 32.7, RDW Std Deviation 45.8 H, RDW Coeff of Nathaniel 12.9, Plt Count 170,MPV 9.2, Immature Gran % (Auto) 0.600, Neut % (Auto) 75.0 H, Lymph % (Auto) 17.5L, Sac % (Auto) 6.5, Eos % (Auto) 0.0, Baso % (Auto) 0.4, Absolute Neuts (auto)3.9, Absolute Lymphs (auto) 0.91, Nucleated RBC % 0, Sodium 148 H, Potassium 3.2L, Chloride 121 H, Carbon Dioxide 21.0, Anion Gap 6, BUN 19 H, Creatinine 3.00 H, Estim Creat Clear Calc 28.15, Est GFR (MDRD) Af Amer 31 L, Est GFR (MDRD) Non-Af 25 L, BUN/Creatinine Ratio 6.3 L, Glucose 94, Calcium 6.5 L* 07/10/23 03:31: POC Glucose 80 07/10/23 04:38: POC Glucose 71 L 07/10/23 04:48: Acetone Level NEGATIVE 07/10/23 05:32: POC Glucose 84 Micro: Microbiology 07/09/23 18:55 Stool Enteric Bacteriology - Final 07/09/23 18:55 Stool Clostridioides difficile (PCR) - Final 07/08/23 12:21 Mucosa - Nose Respiratory Panel (PCR) - Final 07/08/23 08:30 Mucosa - Nasopharyngeal SARS-CoV-2, Influenza & RSV (PCR) - Final Radiography Diagnostic Testing: Radiology Impression Renal Ultrasound 07/09/23 06:47 IMPRESSION: Small nonobstructing right renal calcification. Subcentimeter left renal cyst with adjacent trace perinephric fluid. No hydronephrosis. Electronically Signed: Leesa Reyez MD at 12:45 EST , Physical Exam Narrative General: Alert, oriented, no apparent distress HEENT: Atraumatic, normocephalic Eyes: Anicteric, normal conjunctiva, extraocular movements grossly intact Neck: Supple Respiratory: Clear to auscultation bilaterally, normal respiratory effort Cardiovascular: Regular rate and rhythm GI: Soft, no significant tenderness, no rebound, guarding, rigidity, nondistended Extremities: No edema Musculoskeletal: Moving all extremities Neuro: No overt focal neurological deficits Skin: No rashes appreciated Psych: Cooperative Assessment & Plan Assessment/Plan (1) Acute kidney injury: (2) Diabetes mellitus type I: QUALIFIERS: Diabetes mellitus complication status: with hyperglycemia Qualified Code(s): E10.65 - Type 1 diabetes mellitus with hyperglycemia (3) Lactic acidosis: PLAN: Plan #Acute kidney failure -Creatinine 3.61 with a baseline around 1, aggressively hydrate -Improving with fluids -Patient profoundly volume depleted, if does not continue to improve can furtherinvestigate however given all cell lines increased as well as clinical picture and nausea and vomiting with poor p.o. suspect that this is related to volume depletion -07/09: Initially improved but is somewhat plateaued, creatinine 1.94 this a.m., will obtain kidney ultrasound and urine lytes -07/10: Kidney function had improved with fluids however started worsening subsequent fluids and nephrology was consulted and ordered further labs and CT, CT showed edema and multiple areas and fluids stopped, kidney function is further worsened, nephrology on board #Hyperglycemia in setting of type I diabetes -Patient with confounding acid-base picture -Patient with glucose of 212, BUN elevated at 36, anion gap of 23 but had normalbicarb and pH slightly alkalotic -Did have moderate acetone and elevated anion gap however -Suspect patient had profound contraction alkalosis as well as respiratory compensation given his low CO2 resulting in elevated pH -After aggressive fluid resuscitation anion gap still elevated at 20 and bicarb 18, suspect that correcting contraction alkalosis was revealing metabolic acidosis but VBG not obtained at the time so cannot confirm -Do suspect there is a mild component of DKA confounding picture -Glucose did increase to 371 and given gap and acetone patient was started on insulin drip -Additionally patient having nausea and vomiting and poor p.o., will need to monitor closely -Monitor I's and O's -BMP every 4 hours -When serum glucose is <250 mg/dl, change IV fluids to D5%1/2NS at 150 ml/hr andcontinue insulin drip as per nomogram -Aggressive fluid hydration -07/09: Acetone has been small, widely variable glucose, will transition to subcuinsulin once patient tolerating p.o., had been hypokalemic so fluids adjusted -07/10: Patient taken off of fluids and D5, glucose checks and short acting subcuinsulin, if patient is tolerating p.o. can transition with long-acting however patient not reliably taking p.o. at this time #Lactic acid elevation and leukocytosis -Patient with some vague complaints including cough, stuffy nose, sore throat -White blood cell count 19.4 with left shift on presentation green and patient profoundly volume depleted but has additional lactic acid elevation and slight elevation of Pro-Cem of 0.61 -Respiratory viral panel negative -Chest x-ray normal -Aggressively fluid resuscitate, given patient still with elevated heart rate, somewhat soft BP and increased lactic acid we will panculture and start on empiric antibiotics with plans to de-escalate if cultures negative but cannot rule out infection as cause or contributor at this time -07/09: Has been receiving IV fluids, awaiting cultures, continue empiric antibiotics today, all cell lines did decrease but does still have leukocytosis -07/10: Cultures no growth thus far, continue to monitor, patient on Zosyn # Hypernatremia -Patient transition to D5 half-normal -07/10: Resolved on most recent draw #Cocaine positive UDS -Does not seem patient is on anything that would be false positive for this #DVT ppx: Heparin subcu Ninoska Welch MD Time spent in the patient's overall evaluation,decision-making process, review of diagnostic data, adjustment of management, discussion with other providers, nursing nursing and ancillary staff involved in patient's care documentation, 35Minutes Capacity Legal Reacher Reflex Medical hold order details:: IF a medical hold is selected below, a suggested order for a MEDICAL HOLD will reflex upon signing the document. Next of kin: [place] law dictates a PRIORITY LIST for identifying legal decision-maker/legal next of kin in the following order (LNOK): 1st: The patient?s legal guardian, if any 2nd: The patient's spouse (if status is questionable, consult Risk Management) 3rd: The patient?s adult child(faustino) (majority, if multiple children) 4th: The patient?s parents 5th: The patient?s adult siblings (majority, if multiple children siblings) Charges/Coding Visit Charges Inpatient E&M: 75332 Subs Hosp L2 07/10/231813 <Electronically signed by Ninoska Welch MD> Cosigner Signature (if applicable): CC: ~ Signed [facility] Work Phone: [phone]) 892-135801-18-2024 Consult note Author Janey Mcpherson [facility] July 10, 2023 11:24am Note Date/Time July 10, 2023 1 1:19am [facility] Medical Records Department [address] [place] [address] Consultation - Nephrology 07/10/23 1111 MR#: [id number] Acct: [id number] Name: HANS GONZALEZ Jr. Rep #:[id number] : 1990 33 From: Janey johnson MD PCP: Dr. Alfred Katz MD Status:A DM IN Location: ICU CVICU20 2-1 Assessment & Plan Assessment/Plan (1) Acute kidney injury: PLAN: This is young diabetic with 7 days history of epigastric and left upper quadrant pain radiating to the back who presents 7 days later with dehydration. As he appeared to be volume depleted with hypotension, alkalosis, he was startedon volume expansion with temporary improvement in creatinine. Overnight creatinine stalled and started to rise and back to 3 now. Urine has some blood and a little bit of protein in it. He does not look volume depleted at the moment. At this point in time I want a rule out liver failure and pancreatitis that both can cause functional renal hypoperfusion. Will get a lipase, amylase,CT scan of the abdomen, check sedimentation rate. There would be quite unusual presentation for glomerulonephritis, but occasionally IgA nephropathy/Henoch-Roro?nlein purpura can present like that. Acute abdominal pain, rising creatinine, blood and protein in the urine. He does not have a purpura. Allergic interstitial nephritis is unlikely without corresponding medications and absenceof symptoms or eosinophilia. (2) Acute kidney injury: (1) Acute kidney injury: HPI Consult Data Date of Consult: 07/10/23 HPI Narrative Reason for Consultation: Acute kidney injury HPI Narrative: HANS GONZALEZ, is a 33 M who presents last night with 1 week history of abdominalpain, intractable nausea and vomiting. He could not keep anything down. Patient is known to have type 1 diabetes for about 25 years that has not been well-controlled. Review of his records revealed that he had several episodes ofacute kidney injury in the past for all sorts of different reasons. But I believe his baseline creatinine is around 1. He when he came over yesterday hiscreatinine was elevated 3.6, he was hypotensive, alkalotic, appeared to be volume contracted. He has received a large amount of IV fluids and his creatinine improved by the end of the day to 1.6, however since is been on the rise. Kidney ultrasound showed normal kidneys without hydronephrosis, with goodthickness. On today's exam patient complained on the intensive left upper quadrant and epigastric pain, worse with palpation, but no rebound. He does notrecall history of pancreatitis. His brother states that he does use alcohol. He denies use of nonsteroidals, he does not take any blood pressure medications or diuretics. His urinalysis had 1+ protein, 2+ blood, but there was no casts or dysmorphic RBCs reported. He came over with a hemoglobin of 17 and it is down to 10 today with volume expansion. Blood pressure has normalized. Apparently he had some chills at home, but no real fever. He denies any respiratory symptoms, there is no skin rashes. There is no increased eosinophils on CBC. He states he takes only insulin and 2 antidepressants at home. He occasionally takes omeprazole. [facility] Medical History Anxiety and depression Arthritis Elevated blood pressure reading without diagnosis of hypertension Gastroenteritis Headache Headache, migraine Major depression with psychotic features Pain and numbness of upper extremity Type 1 diabetes mellitus Vision problems Home Medications flash glucose scanning reader (ByReadStyle Celena 2 Fowler) #1 ea 08/18/20 [Rx Last Taken Unknown] flash glucose sensor (FreeStyle Celena 2 Sensor kit) #2 ea 02/19/23 [Rx Last Taken Unknown] insulin aspart U-100 100 unit/mL (3 mL) subcutaneous pen (Novolog FlexPen U-100 Insulin aspart) 12 unit subcut TIDCM DIABETES 07/08/23 [History Last Taken 07/08/23] Allergy/AdvReac Type Severity Reaction Status Date / Time No Known Allergies Allergy Verified 12/30/22 13:08 Family History Grandfather Myocardial infarction COPD (chronic obstructive pulmonary disease) Brother Depression suicide attempt Uncle Diabetes Father Diabetes Aunt Diabetes Surgical History trigger finger surgery Social History Smoking Status: Current some day smoker tobacco type: cigarettes Tobacco: How many years used: 13 second hand exposure: No alcohol intake: never substance use type: marijuana what type of physical activity do you participate in: walking, running and weight training frequency: 3-4 times per week ROS Constitutional Constitutional: Reports chills, malaise, weakness and weight loss ENT HEENT: Reports dry mouth Cardiovascular Cardiovascular: Denies chest pain, claudication, diaphoresis, dyspnea on exertion, edema, irregular heart rhythm, leg edema, orthopnea, palpitations or syncope Respiratory/Chest Respiratory/Chest: Denies dry cough, dyspnea on exertion, hemoptysis, portable oxygen @ home, productive cough, shortness of breath at rest or wheezing Gastrointestinal Gastrointestinal: Reports abdominal pain, anorexia, dry heaves, nausea and vomiting Genitourinary Genitourinary: Denies change in urinary stream, difficulty urinating, dribbling,dysuria, flank pain, hematuria, nocturia, oliguria, post void dribbling, urinaryfrequency, urinary hesitancy, urinary incontinence or urinary urgency Musculoskeletal Musculoskeletal: Denies abnormal gait, arthralgias, joint stiffness, joint swelling, muscle cramps or myalgias Integumentary Integumentary: Denies dry skin, erythema, jaundice, lesions, pruritus, rash or skin ulcer Neurologic Neurologic: Denies abnormal gait, burning sensations, confusion, focal weakness,frequent falls, headache(s), numbness, restless legs, seizures, syncope, tremor(s) or weakness Psychiatric Psychiatric: Reports anxiety Endocrine Endocrinology: Denies cold intolerance, fatigue, heat intolerance, polydipsia orpolyuria Physical Exam Const alert and oriented x3 General Appearance: frail Orientation / Consciousness: oriented to person, oriented to place and oriented to time Nutritional Appearance: thin HEENT normocephalic Head and Scalp: atraumatic Neck no lymphadenopathy Resp no use of accessory muscles Cardio regular rate, no murmurs and no rub GI GI Narrative: Abdomen is tender to palpation especially in epigastrium and the left upper quadrant, no rebound, bowel sounds are sluggish Palpation: tender epigastric and LLQ Skin no rashes or lesions noted Neuro Sensorium / Orientation: somnolent Psych cooperative Medical Records Data Medical Nutrition Assessment Dietitian: Malnutrition Criteria Met Start: 07/09/23 11:55 Freq: Status: Active Protocol: Document 07/09/23 11:55 RMA (Rec: 07/09/23 11:55 RMA [id number]) Nutrition Malnutrition Evidence of Malnutrition Exists Yes Malnutrition (severe): Acute Illness/Injury,Chronic Evidenced By Suboptimal Energy Intake ( Severe),Weight Loss (Severe) Intake Problem Inadequate Oral Intake Etiology related to altered GI function /hyperglycemia Signs/Symptoms as evidenced by NPO/clear liquid diet x day 2 Status Active Problem Clinical Problem Chronic Disease or Condition Related Malnutrition Etiology related to inadequate oral intake, dietary noncompliance, altered GI function and hyperglycemia Signs/Symptoms as evidenced by unintentional weight loss ~5-7% x 1 month, BMI 20.2 and PO meeting less than 50% estimated nutrition needs x past 1 month Status Active Problem Recommendation Dietitian Recommendations/Changes Recommend advance diet as tolerated to 2000 calorie/ consistent carbohydrate. PO Glucerna Shake as diet advanced from clear liquids. Diet education as pt willing to receive. Lab / Micro Data Attestation: I reviewed the patient's lab results. 07/10/23 03:05 07/10/23 03:05 Labs: Laboratory Results - last 24 hr 07/08/23 07:53: Diff Path Review Reviewed 07/09/23 11:39: POC Glucose 113 H 07/09/23 12:15: Urine Osmolality 529, Ur Random Sodium 48, Urine Creatinine 122.00, Urine Potassium 40.0, Urine Chloride 51, Urine Urea Nitrogen 573 07/09/23 12:47: POC Glucose 130 H 07/09/23 14:13: POC Glucose 101 07/09/23 14:20: Sodium 149 H, Potassium 3.4 L, Chloride 118 H, Carbon Dioxide 24.0, Anion Gap 7, BUN 21 H, Creatinine 2.81 H, Estim Creat Clear Calc 30.41, Est GFR (MDRD) Af Amer 33 L, Est GFR (MDRD) Non-Af 27 L, BUN/Creatinine Ratio 7.5 L, Glucose 107 H, Calcium 7.8 L 07/09/23 15:17: POC Glucose 82 07/09/23 16:14: POC Glucose 88 07/09/23 17:19: POC Glucose 121 H 07/09/23 19:42: POC Glucose 142 H 07/09/23 20:38: POC Glucose 176 H 07/09/23 21:32: POC Glucose 159 H 07/09/23 22:27: POC Glucose 106 07/09/23 23:31: POC Glucose 105 07/10/23 00:32: POC Glucose 99 07/10/23 02:31: POC Glucose 87 07/10/23 03:05: WBC 5.2, RBC 3.23 L, Hgb 10.3 L, Hct 31.5 L, MCV 97.5 H, MCH 31.9, MCHC 32.7, RDW Std Deviation 45.8 H, RDW Coeff of Nathaniel 12.9, Plt Count 170,MPV 9.2, Immature Gran % (Auto) 0.600, Neut % (Auto) 75.0 H, Lymph % (Auto) 17.5L, Sac % (Auto) 6.5, Eos % (Auto) 0.0, Baso % (Auto) 0.4, Absolute Neuts (auto)3.9, Absolute Lymphs (auto) 0.91, Nucleated RBC % 0, Sodium 148 H, Potassium 3.2L, Chloride 121 H, Carbon Dioxide 21.0, Anion Gap 6, BUN 19 H, Creatinine 3.00 H, Estim Creat Clear Calc 28.15, Est GFR (MDRD) Af Amer 31 L, Est GFR (MDRD) Non-Af 25 L, BUN/Creatinine Ratio 6.3 L, Glucose 94, Calcium 6.5 L* 07/10/23 03:31: POC Glucose 80 07/10/23 04:38: POC Glucose 71 L 07/10/23 04:48: Acetone Level NEGATIVE 07/10/23 05:32: POC Glucose 84 07/10/23 06:32: POC Glucose 96 07/10/23 07:34: POC Glucose 110 H 07/10/23 08:31: POC Glucose 135 H 07/10/23 08:40: Urine Osmolality 297, Ur Random Sodium 46, Urine Potassium 32.0,Urine Chloride 55, Urine Urea Nitrogen 283 07/10/23 10:42: POC Glucose 173 H Micro: Microbiology 07/08/23 16:15 Urine, Clean Catch Urine Culture - Final Culture exhibits no growth. 07/09/23 18:55 Stool Enteric Bacteriology - Final 07/09/23 18:55 Stool Clostridioides difficile (PCR) - Final Imagaing Radiology Impression Renal Ultrasound 07/09/23 06:47 IMPRESSION: Small nonobstructing right renal calcification. Subcentimeter left renal cyst with adjacent trace perinephric fluid. No hydronephrosis. Electronically Signed: Leesa Reyez MD at 12:45 EST , Capacity Legal Reacher Reflex Medical hold order details:: IF a medical hold is selected below, a suggested order for a MEDICAL HOLD will reflex upon signing the document. Next of kin: [place] law dictates a PRIORITY LIST for identifying legal decision-maker/legal next of kin in the following order (LNOK): 1st: The patient?s legal guardian, if any 2nd: The patient's spouse (if status is questionable, consult Risk Management) 3rd: The patient?s adult child(faustino) (majority, if multiple children) 4th: The patient?s parents 5th: The patient?s adult siblings (majority, if multiple children siblings) 07/10/23 1124 <Electronically signed by Janey Mcpherson MD> Cosigner Signature (if applicable): CC: Dr. Alfred Katz MD; Dr. Kalyani Hampton MD~ Signed [facility] Work Phone: [phone]) 829-592501-17-2024 Progress note Author Ninoska Welch [facility] July 09, 2023 9:25am Note Date/Time July 09, 2023 6 :52am [facility] Medical Records Department [address] [place] [address] Progress Note - Hospitalist 07/09/23 0645 MR#: [id number] Acct: [id number] Name: HANS GONZALEZ Rep #:[id number] : 1990 33 From: Ninoska Welch MD PCP: Dr. Alfred Katz MD Status:A DM IN Location: ICU CVICU20 2-1 Reason for Visit Reason for Visit: Diagnoses Type 1 diabetes mellitus with hyperglycemia (07/08/23) Acidosis (07/08/23) Acute kidney failure, unspecified (07/08/23) Subjective Subjective Patient resting comfortably, reports still not feeling well overall, still having nausea and vomiting Objective Data Objective Data Vital Signs: Vital Signs Temp Pulse Resp BP Pulse Ox O2 Del Method O2 Flow Rate 97.3 F L 76 18 132/95 H 96 Room Air 2 07/09/23 04:37 07/09/23 06:00 07/09/23 06:00 07/09/23 06:00 07/09/23 06:00 07/09/23 06:00 07/08/23 22:00 Oxygen Flow Rate (L/min) 2 Oxygen Delivery Method Room Air Weight: 58.6 kg Body Mass Index (BMI) 20.2 Intake & Output: Intake and Output for Last 24 Hours 07/07/23 07/08/23 07/09/23 23:59 23:59 23:59 Intake Total 5005.96 / 5005.96 977.94 / 977.94 Output Total 100 / 100 Balance 5005.96 / 4905.96 877.94 / 877.94 Lab / Micro Data 07/09/23 03:48 07/09/23 07:00 Labs: Laboratory Results - last 24 hr 07/08/23 07:45: POC Glucose 213 H 07/08/23 07:53: WBC 19.4 H, RBC 5.37, Hgb 17.0 H, Hct 49.2, MCV 91.6, MCH 31.7, MCHC 34.6, RDW Std Deviation 43.4, RDW Coeff of Nathaniel 13.1, Plt Count 581 H, MPV 9.4, Immature Gran % (Auto) 0.500, Neut % (Auto) 79.6 H, Lymph % (Auto) 9.0 L, Sac % (Auto) 10.3 H, Eos % (Auto) 0.0, Baso % (Auto) 0.6, Absolute Neuts (auto)15.5 H, Absolute Lymphs (auto) 1.75, Nucleated RBC % 0, Differential Comment SCANNED, Diff Path Review October, Sodium 141, Potassium 3.8, Chloride 97 L, Carbon Dioxide 21.0, Anion Gap 23 H, BUN 36 H, Creatinine 3.61 H, Estim Creat Clear Calc 21.98, Est GFR (MDRD) Af Amer 25 L, Est GFR (MDRD) Non-Af 21 L, BUN/Creatinine Ratio 10.0, Glucose 212 H, Calcium 11.5 H, Magnesium 2.3, Total Bilirubin 1.60 H, AST 26, ALT 24, Alkaline Phosphatase 235 H, Troponin I High Sens 5, Total Protein 9.5 H, Albumin 4.7, Globulin 4.8 H, Albumin/Globulin Ratio1.0, Procalcitonin 0.61 H, Acetone Level MODERATE H 07/08/23 10:19: POC Glucose 291 H 07/08/23 11:25: Sodium 146 H, Potassium 4.1, Chloride 108 H, Carbon Dioxide 18.0L, Anion Gap 20 H, BUN 32 H, Creatinine 2.33 H, Estim Creat Clear Calc 34.05, Est GFR (MDRD) Af Amer 41 L, Est GFR (MDRD) Non-Af 34 L, BUN/Creatinine Ratio 13.7, Glucose 371 H, Lactic Acid 2.5 H*, Calcium 8.7 07/08/23 13:40: POC Glucose 285 H 07/08/23 14:44: POC Glucose 175 H 07/08/23 15:52: POC Glucose 182 H 07/08/23 15:55: Sodium 148 H, Potassium 3.9, Chloride 113 H, Carbon Dioxide 24.0, Anion Gap 11, BUN 28 H, Creatinine 1.96 H, Estim Creat Clear Calc 40.48, Est GFR (MDRD) Af Amer 50 L, Est GFR (MDRD) Non-Af 42 L, BUN/Creatinine Ratio 14.3, Glucose 232 H, Lactic Acid 3.7 H*, Calcium 8.4 L 07/08/23 16:15: Urine Color Yellow, Urine Clarity Clear, Urine pH 5.0, Ur Specific [place] 1.020, Urine Protein 30 H, Urine Glucose (UA) 1000 H, Urine Ketones 150 A*, Urine Occult Blood 250 H, Urine Nitrite Negative, Urine Bilirubin Negative, Urine Urobilinogen Normal, Ur Leukocyte Esterase 25 H, UrineRBC 0-5 SEEN, Urine WBC 0- 5 SEEN, Ur Squamous Epith Cells 0 SEEN, Calcium Oxalate Crystal 1+, Urine Bacteria 0 SEEN, Hyaline Casts 0-5 SEEN, Fine GranularCasts 0-5 SEEN, Urine Mucus 0 SEEN, Urine Opiates Screen NEGATIVE, Urine Methadone Screen NEGATIVE, Ur Barbiturates Screen NEGATIVE, Ur Phencyclidine Scrn NEGATIVE, Ur Amphetamines Screen NEGATIVE, MDMA (Ecstasy) Screen NEGATIVE, U Benzodiazepines Scrn NEGATIVE, Urine Cocaine Screen POSITIVE H, U CannabinoidsScreen NEGATIVE, Ur Drug Screen Comment 07/08/23 17:05: POC Glucose 246 H 07/08/23 18:06: POC Glucose 191 H 07/08/23 18:58: POC Glucose 145 H 07/08/23 19:55: Sodium 150 H, Potassium 3.2 L, Chloride 116 H, Carbon Dioxide 22.0, Anion Gap 12, BUN 22 H, Creatinine 1.66 H, Estim Creat Clear Calc 47.79, Est GFR (MDRD) Af Amer 61, Est GFR (MDRD) Non-Af 50 L, BUN/Creatinine Ratio 13.3, Glucose 132 H, Calcium 8.2 L 07/08/23 19:59: POC Glucose 122 H 07/08/23 21:05: POC Glucose 96 07/08/23 21:10: Acetone Level SMALL H 07/08/23 22:02: POC Glucose 97 07/08/23 23:01: POC Glucose 65 L 07/08/23 23:27: POC Glucose 132 H 07/08/23 23:50: Sodium 150 H, Potassium 3.4 L, Chloride 115 H, Carbon Dioxide 28.0, Anion Gap 7, BUN 20 H, Creatinine 1.71 H, Estim Creat Clear Calc 46.39, Est GFR (MDRD) Af Amer 59 L, Est GFR (MDRD) Non-Af 49 L, BUN/Creatinine Ratio 11.7, Glucose 136 H, Calcium 8.1 L 07/09/23 00:26: POC Glucose 124 H 07/09/23 01:26: POC Glucose 184 H 07/09/23 02:21: POC Glucose 193 H 07/09/23 03:28: POC Glucose 279 H 07/09/23 03:48: WBC 13.2 H, RBC 3.92 L, Hgb 12.4 L, Hct 37.3 L, MCV 95.2 H, MCH 31.6, MCHC 33.2, RDW Std Deviation 46.5 H, RDW Coeff of Nathaniel 13.3, Plt Count 282,MPV 9.2, Immature Gran % (Auto) [employer]SEL, Neut % (Auto) [employer]SEL, Lymph % (Auto) [employer]SEL, Sac % (Auto) [employer]SEL, Eos % (Auto) [employer]SEL, Baso % (Auto) [employer] GENERAL COUNSEL, Absolute Neuts (auto) 8.2 H, Absolute Lymphs (auto) 1.22, Total Counted 100, Neutrophils % (Manual) 75 H, Lymphocytes % (Manual) 9 L, Monocytes % (Manual) 10, Eosinophils % (Manual) 6 H,Nucleated RBC % 0, Diff Path Review May miki, RBC Morphology N CHROM, Poikilocytosis May foll, Sodium 146 H, Potassium 3.9, Chloride 113 H, Carbon Dioxide 23.0, Anion Gap 10, BUN 20 H, Creatinine 1.94 H, Estim Creat Clear Calc 40.89, Est GFR (MDRD) Af Amer 51 L, Est GFR (MDRD) Non-Af 42 L, BUN/Creatinine Ratio 10.3, Glucose 354 H, Calcium 7.9 L, TSH 0.59, Acetone Level SMALL H 07/09/23 04:40: POC Glucose 292 H 07/09/23 05:28: POC Glucose 224 H 07/09/23 06:22: POC Glucose 177 H Micro: Microbiology 07/08/23 12:21 Mucosa - Nose Respiratory Panel (PCR) - Final 07/08/23 08:30 Mucosa - Nasopharyngeal SARS-CoV-2, Influenza & RSV (PCR) - Final ABG Data ABG results: ABG 07/08/23 08:44 Specimen Type AMADO Sample Site Not entered O2 % 21.0 VBG pH 7.46 H VBG pO2 98 H VBG HCO3 20 L VBG Total CO2 21 L VBG O2 Sat (Calc) 98 H VBG Base Excess -4 L POC Mix VBG pCO2 Pt Tmp 27.4 L O2 Delivery Device Not entered Radiography Diagnostic Testing: Radiology Impression Chest X-Ray 07/08/23 08:34 IMPRESSION: Normal x-ray examination of the chest. Electronically Signed: Crow Cui MD at 9:02 EST Reading Location ID and State: [address] [place] [address] , Service support , Physical Exam Narrative General: Wakes up easily HEENT: Atraumatic, normocephalic Eyes: Anicteric, normal conjunctiva, extraocular movements grossly intact Neck: Supple Respiratory: Clear to auscultation bilaterally, normal respiratory effort Cardiovascular: Regular rate and rhythm GI: Soft, nontender, nondistended Extremities: No edema Musculoskeletal: Moving all extremities Neuro: No overt focal neurological deficits Skin: No rashes appreciated Psych: Superficially cooperative Assessment & Plan Assessment/Plan (1) Acute kidney injury: (2) Diabetes mellitus type I: QUALIFIERS: Diabetes mellitus complication status: with hyperglycemia Qualified Code(s): E10.65 - Type 1 diabetes mellitus with hyperglycemia (3) Lactic acidosis: PLAN: Plan #Acute kidney failure -Creatinine 3.61 with a baseline around 1, aggressively hydrate -Improving with fluids -Patient profoundly volume depleted, if does not continue to improve can furtherinvestigate however given all cell lines increased as well as clinical picture and nausea and vomiting with poor p.o. suspect that this is related to volume depletion -07/09: Initially improved but is somewhat plateaued, creatinine 1.94 this a.m., will obtain kidney ultrasound and urine lytes #Hyperglycemia in setting of type I diabetes -Patient with confounding acid-base picture -Patient with glucose of 212, BUN elevated at 36, anion gap of 23 but had normalbicarb and pH slightly alkalotic -Did have moderate acetone and elevated anion gap however -Suspect patient had profound contraction alkalosis as well as respiratory compensation given his low CO2 resulting in elevated pH -After aggressive fluid resuscitation anion gap still elevated at 20 and bicarb 18, suspect that correcting contraction alkalosis was revealing metabolic acidosis but VBG not obtained at the time so cannot confirm -Do suspect there is a mild component of DKA confounding picture -Glucose did increase to 371 and given gap and acetone patient was started on insulin drip -Additionally patient having nausea and vomiting and poor p.o., will need to monitor closely -Monitor I's and O's -BMP every 4 hours -When serum glucose is <250 mg/dl, change IV fluids to D5%1/2NS at 150 ml/hr andcontinue insulin drip as per nomogram -Aggressive fluid hydration -07/09: Acetone has been small, widely variable glucose, will transition to subcuinsulin once patient tolerating p.o., had been hypokalemic so fluids adjusted #Lactic acid elevation and leukocytosis -Patient with some vague complaints including cough, stuffy nose, sore throat -White blood cell count 19.4 with left shift on presentation green and patient profoundly volume depleted but has additional lactic acid elevation and slight elevation of Pro-Cem of 0.61 -Respiratory viral panel negative -Chest x-ray normal -Aggressively fluid resuscitate, given patient still with elevated heart rate, somewhat soft BP and increased lactic acid we will panculture and start on empiric antibiotics with plans to de-escalate if cultures negative but cannot rule out infection as cause or contributor at this time -07/09: Has been receiving IV fluids, awaiting cultures, continue empiric antibiotics today, all cell lines did decrease but does still have leukocytosis # Hypernatremia -Patient transition to D5 half-normal #Cocaine positive UDS -Does not seem patient is on anything that would be false positive for this #DVT ppx: Heparin subcu Ninoska Welch MD Time spent in the patient's overall evaluation,decision-making process, review of diagnostic data, adjustment of management, discussion with other providers, nursing nursing and ancillary staff involved in patient's care documentation, 35Minutes Capacity Legal Reacher Reflex Medical hold order details:: IF a medical hold is selected below, a suggested order for a MEDICAL HOLD will reflex upon signing the document. Next of kin: [place] law dictates a PRIORITY LIST for identifying legal decision-maker/legal next of kin in the following order (LNOK): 1st: The patient?s legal guardian, if any 2nd: The patient's spouse (if status is questionable, consult Risk Management) 3rd: The patient?s adult child(faustino) (majority, if multiple children) 4th: The patient?s parents 5th: The patient?s adult siblings (majority, if multiple children siblings) Charges/Coding Visit Charges Inpatient E&M: 15293 Subs Hosp L2 07/09/23 0925 <Electronically signed by Ninoska Welch MD> Cosigner Signature (if applicable): CC: ~ Signed [facility] Work Phone: [phone] History and physical note Author Ninoska Welch [facility] July 08, 2023 7:09pm Note Date/Time July 08, 2023 1 2:47pm [facility] Medical Records Department [address] [place] [address] H&P Exam - Hospitalist 07/08/23 1247 MR#: [id number] Acct: [id number] Name: HANS GONZALEZ Jr. Rep #:[id number] : 1990 33 From: Ninoska Welch MD PCP: Dr. Alfred Katz MD Status:A DM IN Location: ICU CVICU20 2-1 HPI - General General Date of Admission: 07/08/23 Date of Service: 07/08/23 Chief Complaint: Nausea, generally unwell HPI Narrative HANS GONZALEZ, is a 33M hx GERD, DMI, anxiety, tobacco use who presented to [facility] 07/08/2023 due to general malaise and nausea. He had been feeling unwell for about 3 to 4 days with poor p.o. intake and some blurry vision as well as some chills with no fever. Additionally has had little bit ofnasal congestion and sore throat as well as nonproductive cough, has been havingnausea and has been unable to keep anything down and given patient is generally not doing well he was brought to the emergency department. In the ED patient initially tachycardic with heart rate in 140s with blood pressure 94/55 respiratory rate of 30, found to be hemoconcentrated with white blood cell countof 19.4, hemoglobin 17, platelet count 581 and patient with BUN of 36 and creatinine of 3.61 up from baseline of around 1, his bicarb was normal but his anion gap was 23, blood glucose 212 and he had a VBG which showed a pH of 7.46, HCO3 of 20 and CO2 of 21 with moderate acetone. Hospitalist contacted for admission. Patient seen in ED with family member at bedside and history as above, reports just feeling generally unwell and being very thirsty but is nauseous and has a stuffy nose and sore throat with cough and bodyaches. Also reports he has had some blurry vision, denies changes in bowels, has not been urinating well but also has not been having good p.o. intake. Took insulin yesterday but had not taken yet today. [facility] Medical History Anxiety and depression Arthritis Elevated blood pressure reading without diagnosis of hypertension Gastroenteritis Headache Headache, migraine Major depression with psychotic features Pain and numbness of upper extremity Type 1 diabetes mellitus Vision problems Home Medications flash glucose scanning reader (FreeStyle Celena 2 Fowler) #1 ea 08/18/20 [Rx Last Taken Unknown] flash glucose sensor (FreeStyle Celena 2 Sensor kit) #2 ea 02/19/23 [Rx Last Taken Unknown] insulin aspart U-100 100 unit/mL (3 mL) subcutaneous pen (Novolog FlexPen U-100 Insulin aspart) 12 unit subcut TIDCM DIABETES 07/08/23 [History Last Taken 07/08/23] Allergy/AdvReac Type Severity Reaction Status Date / Time No Known Allergies Allergy Verified 12/30/22 13:08 Family History Grandfather Myocardial infarction COPD (chronic obstructive pulmonary disease) Brother Depression suicide attempt Uncle Diabetes Father Diabetes Aunt Diabetes Surgical History trigger finger surgery Social History Smoking Status: Current some day smoker tobacco type: cigarettes Tobacco: How many years used: 13 second hand exposure: No alcohol intake: never substance use type: marijuana what type of physical activity do you participate in: walking, running and weight training frequency: 3-4 times per week ROS ROS Narrative General: Has been having chills HENT: Denies headache, has stuffy nose and sore throat EYES: Denies changes in vision Resp: Has had slight cough, denies shortness of breath Cardiac: Denies overt chest pain GI: Denies abdominal pain, denies changes in bowel, nausea and vomiting : Decreased urination Extremity: Denies swelling MSK: Feeling weak all over Neuro: Denies any numbness/tingling Heme: Denies any bleeding or bruising Skin: Denies rashes Psychiatric: No complaints voiced Vital Signs Vital Signs Vital Signs: 07/08/23 07:29 07/08/23 07:37 07/08/23 08:29 Temperature 95.2 F L Temperature Source Temporal Pulse Rate 152 H 118 H Respiratory Rate 30 H 16 Respiratory Effort Normal Short of Breath Blood Pressure 94/55 L 125/81 H Blood Pressure Mean 68 95 Blood Pressure Source Blood Pressure Position Blood Pressure Location Pulse Ox 96 98 Oxygen Delivery Method Room Air Room Air 07/08/23 09:00 07/08/23 10:00 07/08/23 11:00 Temperature Temperature Source Pulse Rate 110 H 105 H 106 H Respiratory Rate 16 16 16 Respiratory Effort Blood Pressure 129/64 H 110/74 116/64 Blood Pressure Mean 85 86 81 Blood Pressure Source Blood Pressure Position Blood Pressure Location Pulse Ox 98 98 98 Oxygen Delivery Method Room Air Room Air Room Air 07/08/23 11:50 Temperature 98 F Temperature Source Temporal Pulse Rate 104 H Respiratory Rate 12 Respiratory Effort Blood Pressure 120/81 H Blood Pressure Mean 94 Blood Pressure Source Monitor Blood Pressure Position Semi-Fowlers Blood Pressure Location Left Arm Pulse Ox 100 Oxygen Delivery Method Room Air Weight Weight: 54.4 kg Body Mass Index (BMI) 18.8 Physical Exam Narrative General: Patient with shakes, appears tired and not be feeling well HEENT: Atraumatic, normocephalic Eyes: Anicteric, normal conjunctiva, extraocular movements grossly intact Neck: Supple Respiratory: Clear to auscultation bilaterally, normal respiratory effort Cardiovascular: Mildly tachycardic GI: Soft, nontender, nondistended Extremities: No edema Musculoskeletal: Moving all extremities Neuro: No overt focal neurological deficits Skin: No rashes appreciated Psych: Cooperative Results Lab / Micro Data 07/08/23 07:53 07/08/23 15:55 Labs: Laboratory Results - last 24 hr 07/08/23 07:45: POC Glucose 213 H 07/08/23 07:53: WBC 19.4 H, RBC 5.37, Hgb 17.0 H, Hct 49.2, MCV 91.6, MCH 31.7, MCHC 34.6, RDW Std Deviation 43.4, RDW Coeff of Nathaniel 13.1, Plt Count 581 H, MPV 9.4, Immature Gran % (Auto) 0.500, Neut % (Auto) 79.6 H, Lymph % (Auto) 9.0 L, Sac % (Auto) 10.3 H, Eos % (Auto) 0.0, Baso % (Auto) 0.6, Absolute Neuts (auto)15.5 H, Absolute Lymphs (auto) 1.75, Nucleated RBC % 0, Differential Comment SCANNED, Diff Path Review October, Sodium 141, Potassium 3.8, Chloride 97 L, Carbon Dioxide 21.0, Anion Gap 23 H, BUN 36 H, Creatinine 3.61 H, Estim Creat Clear Calc 21.98, Est GFR (MDRD) Af Amer 25 L, Est GFR (MDRD) Non-Af 21 L, BUN/Creatinine Ratio 10.0, Glucose 212 H, Calcium 11.5 H, Magnesium 2.3, Total Bilirubin 1.60 H, AST 26, ALT 24, Alkaline Phosphatase 235 H, Troponin I High Sens 5, Total Protein 9.5 H, Albumin 4.7, Globulin 4.8 H, Albumin/Globulin Ratio1.0, Procalcitonin 0.61 H, Acetone Level MODERATE H 07/08/23 10:19: POC Glucose 291 H 07/08/23 11:25: Sodium 146 H, Potassium 4.1, Chloride 108 H, Carbon Dioxide 18.0L, Anion Gap 20 H, BUN 32 H, Creatinine 2.33 H, Estim Creat Clear Calc 34.05, Est GFR (MDRD) Af Amer 41 L, Est GFR (MDRD) Non-Af 34 L, BUN/Creatinine Ratio 13.7, Glucose 371 H, Lactic Acid 2.5 H*, Calcium 8.7 Micro: Microbiology 07/08/23 08:30 Mucosa - Nasopharyngeal SARS-CoV-2, Influenza & RSV (PCR) - Final ABG Data ABG results: ABG 07/08/23 08:44 Specimen Type AMADO Sample Site Not entered O2 % 21.0 VBG pH 7.46 H VBG pO2 98 H VBG HCO3 20 L VBG Total CO2 21 L VBG O2 Sat (Calc) 98 H VBG Base Excess -4 L POC Mix VBG pCO2 Pt Tmp 27.4 L O2 Delivery Device Not entered Imagaing Radiology Impression Chest X-Ray 07/08/23 08:34 IMPRESSION: Normal x-ray examination of the chest. Electronically Signed: Crow Cui MD at 9:02 EST , Assessment & Plan Assessment/Plan (1) Acute kidney injury: (2) Diabetes mellitus type I: QUALIFIERS: Diabetes mellitus complication status: with hyperglycemia Qualified Code(s): E10.65 - Type 1 diabetes mellitus with hyperglycemia (3) Lactic acidosis: PLAN: Plan #Acute kidney failure -Creatinine 3.61 with a baseline around 1, aggressively hydrate -Improving with fluids -Patient profoundly volume depleted, if does not continue to improve can furtherinvestigate however given all cell lines increased as well as clinical picture and nausea and vomiting with poor p.o. suspect that this is related to volume depletion #Hyperglycemia in setting of type I diabetes -Patient with confounding acid-base picture -Patient with glucose of 212, BUN elevated at 36, anion gap of 23 but had normalbicarb and pH slightly alkalotic -Did have moderate acetone and elevated anion gap however -Suspect patient had profound contraction alkalosis as well as respiratory compensation given his low CO2 resulting in elevated pH -After aggressive fluid resuscitation anion gap still elevated at 20 and bicarb 18, suspect that correcting contraction alkalosis was revealing metabolic acidosis but VBG not obtained at the time so cannot confirm -Do suspect there is a mild component of DKA confounding picture -Glucose did increase to 371 and given gap and acetone patient was started on insulin drip -Additionally patient having nausea and vomiting and poor p.o., will need to monitor closely -Monitor I's and O's -BMP every 4 hours -When serum glucose is <250 mg/dl, change IV fluids to D5%1/2NS at 150 ml/hr andcontinue insulin drip as per nomogram -Aggressive fluid hydration #Lactic acid elevation and leukocytosis -Patient with some vague complaints including cough, stuffy nose, sore throat -White blood cell count 19.4 with left shift on presentation green and patient profoundly volume depleted but has additional lactic acid elevation and slight elevation of Pro-Cem of 0.61 -Respiratory viral panel negative -Chest x-ray normal -Aggressively fluid resuscitate, given patient still with elevated heart rate, somewhat soft BP and increased lactic acid we will panculture and start on empiric antibiotics with plans to de-escalate if cultures negative but cannot rule out infection as cause or contributor at this time #DVT ppx: Heparin subcu Ninoska Welch MD Time spent in the patient's overall evaluation,decision-making process, review of diagnostic data, adjustment of management, discussion with other providers, nursing nursing and ancillary staff involved in patient's care documentation, 56Minutes Charges/Coding Visit Charges Inpatient E&M: 61782 Init Hosp L2 07/08/231908 <Electronically signed by Ninoska Welch MD> Cosigner Signature (if applicable): CC: Dr. Alfred Katz MD; Dr. Ninoska Welch MD~ Signed [facility] Work Phone: [phone] 365-429601-16-2024 Discharge summary Author Kaleb Davies [facility] July 08, 2023 10:34am Note Date/Time July 08, 2023 7 :39am [facility] Medical Records Department [address] [place] [address] Emergency Department Summary 07/08/23 MR#: [id number] Acct: [id number] Name: HANS GONZALEZ Jr. Rep #:[id number] : 1990 33 From: Kaleb Davies DO PCP: Dr. Alfred Katz MD Status:R EG ER Location: ED HPI History of Present Illness Chief Complaint: Syncope Narrative Narrative: 33-year-old male has been sick for 3 to 4 days. Family states they have all have a mild cough but he has been sicker. He admits to nausea, vomiting. Patient states he thought he might of just come down with a cold and the family all states they are not very sick. Patient has not had a fever at home but did admit to body aches and chills. His sugars have been okay per his family. Patient has been giving himself insulin and Lantus. Family states has been ableto hold down some fluids but not any food. He is making urine. Other than his history of diabetes type 1 he states he has a history of gastric ulcer. He states has been having some black emesis over the last few days. Patient admitsto feeling lightheaded and fainting a few times at home. Concerned this could be due to hydration. [facility] Medical History Anxiety and depression Arthritis Elevated blood pressure reading without diagnosis of hypertension Gastroenteritis Headache Headache, migraine Major depression with psychotic features Pain and numbness of upper extremity Type 1 diabetes mellitus Vision problems Home Medications glucagon (human recombinant) 1 mg solution for injection 1 mg IM ONCE PRN HYPOGLYCEMIA 11/04/18 [History Last Taken Unknown] flash glucose scanning reader (ByReadStyle Celena 2 Fowler) #1 ea 08/18/20 [Rx Last Taken Unknown] omeprazole 40 mg capsule,delayed release 40 mg PO DAILY ACID REFLUX #90 caps 12/01/20 [Rx Last Taken Unknown] nortriptyline 25 mg capsule 25 mg PO QHS DEPRESSION #30 caps 10/10/21 [Rx Last Taken Unknown] clobetasol 0.05 % topical ointment 1 applic topical DAILY ITCHING/REDNESS #15 grams 11/02/21 [Rx Last Taken Unknown] vortioxetine 10 mg tablet 10 mg PO DAILY DEPRESSION #90 tabs 04/26/22 [Rx Last Taken Unknown] cariprazine 1.5 mg capsule (Vraylar) 1.5 mg PO DAILY DEPRESSION #30 caps 07/01/22 [Rx Last Taken Unknown] cholecalciferol (vitamin D3) 1,250 mcg (50,000 unit) capsule 1,250 mcg PO QWEEK SUPPLEMENT #12 caps 12/30/22 [Rx Last Taken Unknown] flash glucose sensor (FreeStyle Celena 2 Sensor kit) #2 ea 02/19/23 [Rx Last Taken Unknown] insulin aspart U-100 100 unit/mL (3 mL) subcutaneous pen (Novolog FlexPen U-100 Insulin aspart) 12 unit subcut TIDCM DIABETES 07/08/23 [History Last Taken 07/08/23] Allergy/AdvReac Type Severity Reaction Status Date / Time No Known Allergies Allergy Verified 12/30/22 13:08 Family History Grandfather Myocardial infarction COPD (chronic obstructive pulmonary disease) Brother Depression suicide attempt Uncle Diabetes Father Diabetes Aunt Diabetes Surgical History trigger finger surgery Social History Smoking Status: Current some day smoker tobacco type: cigarettes Tobacco: How many years used: 13 second hand exposure: No alcohol intake: never substance use type: marijuana what type of physical activity do you participate in: walking, running and weight training frequency: 3-4 times per week ROS ROS ED Constitutional Constitutional ED: Denies chills, fever(s) or sweats Eyes Eyes: Denies blurry vision or change in vision ENT ENT ED: Denies ear pain or sore throat Cardiovascular Cardiovascular: Denies chest pain, palpitations or racing heartbeat Respiratory/Chest Respiratory/Chest: Reports cough and dyspnea; Denies sputum Gastrointestinal Gastrointestinal: Reports nausea, vomiting and other Details: Dark emesis. No black or bloody stools. ; Denies abdominal pain, constipation or diarrhea Genitourinary Genitourinary ED: Denies dysuria, hematuria or urinary frequency Musculoskeletal Musculoskeletal: Denies arthralgias, myalgias or neck pain Integumentary Denies abscess, Abrasions or rash Neurologic Neurologic: Reports headache(s); Denies paresthesias or weakness Psychiatric Psychiatric: Denies anxiety, depression, suicidal ideation or suicidal thoughts Endocrine Endocrinology: Denies polydipsia or polyuria EXAM Physical Exam Const Vital Signs: 07/08/23 07:29 07/08/23 07:37 07/08/23 08:29 Temperature 95.2 F L Temperature Source Temporal Pulse Rate 152 H 118 H Respiratory Rate 30 H 16 Respiratory Effort Normal Short of Breath Blood Pressure 94/55 L 125/81 H Blood Pressure Mean 68 95 Pulse Ox 96 98 Oxygen Delivery Method Room Air Room Air 07/08/23 09:00 07/08/23 10:00 Temperature Temperature Source Pulse Rate 110 H 105 H Respiratory Rate 16 16 Respiratory Effort Blood Pressure 129/64 H 110/74 Blood Pressure Mean 85 86 Pulse Ox 98 98 Oxygen Delivery Method Room Air Room Air Positive unkempt General Appearance ED: unkempt; Negative for pallor HEENT Reports dry mucous membranes Mouth ED: Yes dry mucous membranes Mouth: dry mucous membranes Eyes PERRL and EOMs intact bilaterally Neck no lymphadenopathy Chest Wall inspection of chest normal Resp normal respiratory effort and clear to auscultation bilaterally Auscultation: Negative for rales or rhonchi Cardio regular rhythm Rate: tachycardic GI normal to inspection, nondistended, normoactive bowel sounds Extremity General Extremety ED: Negative for edema or tenderness General Extremity: Negative for edema Neuro oriented x3 and CN's II-XII intact bilaterally Sensorium / Orientation: alert Psych mental status grossly normal Appearance: unkempt Skin no wounds General Skin Exam: Negative for jaundice or pallor MDM MDM MDM Narrative Medical decision making narrative: 33-year-old male presenting with nausea, vomiting, lightheadedness and syncope for the last few days. He is progressively getting more dehydrated. He reportshas been able to hold on some fluids but no food. Patient with history of type 1 diabetes. He still taking his insulin and Lantus at home. Differential includes DKA, HHNK, dehydration, anemia, electrolyte normalities, peptic ulcer disease, GERD, COVID, influenza, pneumonia, UTI. IV was established. Patient given Zofran and a Protonix bolus. Patient also given 2 L of normal saline. CBC was obtained to assess white blood cell count, hemoglobin, platelets. CMP to assess liver function, renal function, electrolytes, glucose, anion gap. High-sensitivity troponin and EKG to assess for ischemia/dysrhythmia. POC glucose showed a glucose of 213. Chest x- ray to rule out pneumonia. COVID, influenza, RSV will be obtained. CBC shows leukocytosis of 19.4. Hemoglobin 17.0 and likely hemoconcentrated. Platelets 581 also hemoconcentrated most likely. Creatinine elevated at 3.61 today which is well above the patient's baseline of 1.15. Patient does have anion gap at 23. Glucose 212. Has moderate acetone. On reevaluation patient is doing well. His vital signs have normalized. Chest x-ray was obtained and shows no acute process on my interpretation. We are still waiting to obtain a UA. COVID, influenza, RSV were all negative. Discussed with the hospitalist for admission. I do not believe he needs an insulin drip at this time but will need hydration. Impression: 1. Hyperglycemia 2. Elevated anion gap 3. Leukocytosis 4. Nausea/vomiting 5. Acute kidney injury Lab Data Attestation: I reviewed the patient's lab results. Labs: Laboratory Results - last 24 hr 07/08/23 07/08/23 07:45 07:53 WBC 19.4 H RBC 5.37 Hgb 17.0 H Hct 49.2 MCV 91.6 MCH 31.7 MCHC 34.6 RDW Std Deviation 43.4 RDW Coeff of Nathaniel 13.1 Plt Count 581 H MPV 9.4 Immature Gran % (Auto) 0.500 Neut % (Auto) 79.6 H Lymph % (Auto) 9.0 L Sac % (Auto) 10.3 H Eos % (Auto) 0.0 Baso % (Auto) 0.6 Absolute Neuts (auto) 15.5 H Absolute Lymphs (auto) 1.75 Nucleated RBC % 0 Differential Comment SCANNED Diff Path Review May foll Sodium 141 Potassium 3.8 Chloride 97 L Carbon Dioxide 21.0 Anion Gap 23 H BUN 36 H Creatinine 3.61 H Estim Creat Clear Calc 21.98 Est GFR (MDRD) Af Amer 25 L Est GFR (MDRD) Non-Af 21 L BUN/Creatinine Ratio 10.0 Glucose 212 H Calcium 11.5 H Magnesium 2.3 Total Bilirubin 1.60 H AST 26 ALT 24 Alkaline Phosphatase 235 H Troponin I High Sens 5 Total Protein 9.5 H Albumin 4.7 Globulin 4.8 H Albumin/Globulin Ratio 1.0 Acetone Level MODERATE H POC Glucose 213 H ABG Data ABG results: ABG 07/08/23 08:44 Specimen Type AMADO Sample Site Not entered O2 % 21.0 VBG pH 7.46 H VBG pO2 98 H VBG HCO3 20 L VBG Total CO2 21 L VBG O2 Sat (Calc) 98 H VBG Base Excess -4 L POC Mix VBG pCO2 Pt Tmp 27.4 L O2 Delivery Device Not entered Radiography Diagnostic Testing: Clinical Impression(s) from Imaging Studies Chest X-Ray 07/08/23 08:34 IMPRESSION: Normal x-ray examination of the chest. Electronically Signed: Crow Cui MD at 9:02 EST , Discharge Plan Triage Chief Complaint: Syncope ED Provider: Kaleb Davies Dx/Rx/DC Orders Prescriptions: No Action (DME) FreeStyle Celena 2 Fowler Misc See Rx Instructions .ROUTE .MEDSUPPLY Qty: 1 0RF Rx Instructions: As directed vortioxetine 10 mg tablet 10 mg PO DAILY Qty: 90 2RF cholecalciferol (vitamin D3) 1,250 mcg (50,000 unit) capsule 1,250 mcg PO QWEEK Qty: 12 3RF glucagon (human recombinant) 1 MG recon soln 1 mg IM ONCE PRN (Reason: HYPOGLYCEMIA ) insulin aspart U-100 [Novolog FlexPen U-100 Insulin] 100 unit/mL (3 mL) insulin pen 12 unit subcut TIDCM omeprazole 40 mg capsule,delayed release(DR/EC) 40 mg PO DAILY Qty: 90 2RF nortriptyline 25 mg capsule 25 mg PO QHS Qty: 30 2RF clobetasol 0.05 % ointment 1 applic TOPICAL DAILY Qty: 15 0RF Vraylar 1.5 mg capsule 1.5 mg PO DAILY Qty: 30 1RF (DME) FreeStyle Celena 2 Sensor Kit See Rx Instructions .ROUTE .MEDSUPPLY Qty: 2 8RF Rx Instructions: 1 sensor q 14 days insulin aspart U-100 100 unit/mL (3 mL) insulin pen 12 unit subcut TID Qty: 15 0RF Primary Care Provider: Alfred Katz Referrals: Alfred Katz MD [Primary Care Provider] - Capacity Legal Reacher Reflex Medical hold order details:: IF a medical hold is selected below, a suggested order for a MEDICAL HOLD will reflex upon signing the document. Next of kin: [place] law dictates a PRIORITY LIST for identifying legal decision-maker/legal next of kin in the following order (LNOK): 1st: The patient?s legal guardian, if any 2nd: The patient's spouse (if status is questionable, consult Risk Management) 3rd: The patient?s adult child(faustino) (majority, if multiple children) 4th: The patient?s parents 5th: The patient?s adult siblings (majority, if multiple children siblings) What to do if you have Problems For any increased pain, shortness of breath, bleeding, nausea or vomiting, chestpain, or any unexpected problems, contact your Primary Care Provider. Call [facility] ([phone]) or report to the closest Emergency Room. Call 911 if necessary. 07/08/23 1034 <Electronically signed by Kaleb Davies DO> Cosigner Signature (if applicable): CC: Dr. Alfred Katz MD ~ Signed [facility] Work Phone: [phone] Discharge summary Author Kaleb Davies [facility] July 08, 2023 10:34am Note Date/Time July 08, 2023 7 :39am [facility] Medical Records Department [address] [place] [id number] Emergency Department Summary 07/08/23 MR#: [id number] Acct: [id number] Name: HANS GONZALEZ JrSoco Rep #:[id number] : 1990 33 From: Kaleb Davies DO PCP: Dr. Alfred Katz MD Status:R EG ER Location: ED HPI History of Present Illness Chief Complaint: Syncope Narrative Narrative: 33-year-old male has been sick for 3 to 4 days. Family states they have all have a mild cough but he has been sicker. He admits to nausea, vomiting. Patient states he thought he might of just come down with a cold and the family all states they are not very sick. Patient has not had a fever at home but did admit to body aches and chills. His sugars have been okay per his family. Patient has been giving himself insulin and Lantus. Family states has been ableto hold down some fluids but not any food. He is making urine. Other than his history of diabetes type 1 he states he has a history of gastric ulcer. He states has been having some black emesis over the last few days. Patient admitsto feeling lightheaded and fainting a few times at home. Concerned this could be due to hydration. [facility] Medical History Anxiety and depression Arthritis Elevated blood pressure reading without diagnosis of hypertension Gastroenteritis Headache Headache, migraine Major depression with psychotic features Pain and numbness of upper extremity Type 1 diabetes mellitus Vision problems Home Medications glucagon (human recombinant) 1 mg solution for injection 1 mg IM ONCE PRN HYPOGLYCEMIA 11/04/18 [History Last Taken Unknown] flash glucose scanning reader (ByReadStyle Celena 2 Fowler) #1 ea 08/18/20 [Rx Last Taken Unknown] omeprazole 40 mg capsule,delayed release 40 mg PO DAILY ACID REFLUX #90 caps 12/01/20 [Rx Last Taken Unknown] nortriptyline 25 mg capsule 25 mg PO QHS DEPRESSION #30 caps 10/10/21 [Rx Last Taken Unknown] clobetasol 0.05 % topical ointment 1 applic topical DAILY ITCHING/REDNESS #15 grams 11/02/21 [Rx Last Taken Unknown] vortioxetine 10 mg tablet 10 mg PO DAILY DEPRESSION #90 tabs 04/26/22 [Rx Last Taken Unknown] cariprazine 1.5 mg capsule (Vraylar) 1.5 mg PO DAILY DEPRESSION #30 caps 07/01/22 [Rx Last Taken Unknown] cholecalciferol (vitamin D3) 1,250 mcg (50,000 unit) capsule 1,250 mcg PO QWEEK SUPPLEMENT #12 caps 12/30/22 [Rx Last Taken Unknown] flash glucose sensor (FreeStyle Celena 2 Sensor kit) #2 ea 02/19/23 [Rx Last Taken Unknown] insulin aspart U-100 100 unit/mL (3 mL) subcutaneous pen (Novolog FlexPen U-100 Insulin aspart) 12 unit subcut TIDCM DIABETES 07/08/23 [History Last Taken 07/08/23] Allergy/AdvReac Type Severity Reaction Status Date / Time No Known Allergies Allergy Verified 12/30/22 13:08 Family History Grandfather Myocardial infarction COPD (chronic obstructive pulmonary disease) Brother Depression suicide attempt Uncle Diabetes Father Diabetes Aunt Diabetes Surgical History trigger finger surgery Social History Smoking Status: Current some day smoker tobacco type: cigarettes Tobacco: How many years used: 13 second hand exposure: No alcohol intake: never substance use type: marijuana what type of physical activity do you participate in: walking, running and weight training frequency: 3-4 times per week ROS ROS ED Constitutional Constitutional ED: Denies chills, fever(s) or sweats Eyes Eyes: Denies blurry vision or change in vision ENT ENT ED: Denies ear pain or sore throat Cardiovascular Cardiovascular: Denies chest pain, palpitations or racing heartbeat Respiratory/Chest Respiratory/Chest: Reports cough and dyspnea; Denies sputum Gastrointestinal Gastrointestinal: Reports nausea, vomiting and other Details: Dark emesis. No black or bloody stools. ; Denies abdominal pain, constipation or diarrhea Genitourinary Genitourinary ED: Denies dysuria, hematuria or urinary frequency Musculoskeletal Musculoskeletal: Denies arthralgias, myalgias or neck pain Integumentary Denies abscess, Abrasions or rash Neurologic Neurologic: Reports headache(s); Denies paresthesias or weakness Psychiatric Psychiatric: Denies anxiety, depression, suicidal ideation or suicidal thoughts Endocrine Endocrinology: Denies polydipsia or polyuria EXAM Physical Exam Const Vital Signs: 07/08/23 07:29 07/08/23 07:37 07/08/23 08:29 Temperature 95.2 F L Temperature Source Temporal Pulse Rate 152 H 118 H Respiratory Rate 30 H 16 Respiratory Effort Normal Short of Breath Blood Pressure 94/55 L 125/81 H Blood Pressure Mean 68 95 Pulse Ox 96 98 Oxygen Delivery Method Room Air Room Air 07/08/23 09:00 07/08/23 10:00 Temperature Temperature Source Pulse Rate 110 H 105 H Respiratory Rate 16 16 Respiratory Effort Blood Pressure 129/64 H 110/74 Blood Pressure Mean 85 86 Pulse Ox 98 98 Oxygen Delivery Method Room Air Room Air Positive unkempt General Appearance ED: unkempt; Negative for pallor HEENT Reports dry mucous membranes Mouth ED: Yes dry mucous membranes Mouth: dry mucous membranes Eyes PERRL and EOMs intact bilaterally Neck no lymphadenopathy Chest Wall inspection of chest normal Resp normal respiratory effort and clear to auscultation bilaterally Auscultation: Negative for rales or rhonchi Cardio regular rhythm Rate: tachycardic GI normal to inspection, nondistended, normoactive bowel sounds Extremity General Extremety ED: Negative for edema or tenderness General Extremity: Negative for edema Neuro oriented x3 and CN's II-XII intact bilaterally Sensorium / Orientation: alert Psych mental status grossly normal Appearance: unkempt Skin no wounds General Skin Exam: Negative for jaundice or pallor MDM MDM MDM Narrative Medical decision making narrative: 33-year-old male presenting with nausea, vomiting, lightheadedness and syncope for the last few days. He is progressively getting more dehydrated. He reportshas been able to hold on some fluids but no food. Patient with history of type 1 diabetes. He still taking his insulin and Lantus at home. Differential includes DKA, HHNK, dehydration, anemia, electrolyte normalities, peptic ulcer disease, GERD, COVID, influenza, pneumonia, UTI. IV was established. Patient given Zofran and a Protonix bolus. Patient also given 2 L of normal saline. CBC was obtained to assess white blood cell count, hemoglobin, platelets. CMP to assess liver function, renal function, electrolytes, glucose, anion gap. High-sensitivity troponin and EKG to assess for ischemia/dysrhythmia. POC glucose showed a glucose of 213. Chest x- ray to rule out pneumonia. COVID, influenza, RSV will be obtained. CBC shows leukocytosis of 19.4. Hemoglobin 17.0 and likely hemoconcentrated. Platelets 581 also hemoconcentrated most likely. Creatinine elevated at 3.61 today which is well above the patient's baseline of 1.15. Patient does have anion gap at 23. Glucose 212. Has moderate acetone. On reevaluation patient is doing well. His vital signs have normalized. Chest x-ray was obtained and shows no acute process on my interpretation. We are still waiting to obtain a UA. COVID, influenza, RSV were all negative. Discussed with the hospitalist for admission. I do not believe he needs an insulin drip at this time but will need hydration. Impression: 1. Hyperglycemia 2. Elevated anion gap 3. Leukocytosis 4. Nausea/vomiting 5. Acute kidney injury Lab Data Attestation: I reviewed the patient's lab results. Labs: Laboratory Results - last 24 hr 07/08/23 07/08/23 07:45 07:53 WBC 19.4 H RBC 5.37 Hgb 17.0 H Hct 49.2 MCV 91.6 MCH 31.7 MCHC 34.6 RDW Std Deviation 43.4 RDW Coeff of Nathaniel 13.1 Plt Count 581 H MPV 9.4 Immature Gran % (Auto) 0.500 Neut % (Auto) 79.6 H Lymph % (Auto) 9.0 L Sac % (Auto) 10.3 H Eos % (Auto) 0.0 Baso % (Auto) 0.6 Absolute Neuts (auto) 15.5 H Absolute Lymphs (auto) 1.75 Nucleated RBC % 0 Differential Comment SCANNED Diff Path Review May foll Sodium 141 Potassium 3.8 Chloride 97 L Carbon Dioxide 21.0 Anion Gap 23 H BUN 36 H Creatinine 3.61 H Estim Creat Clear Calc 21.98 Est GFR (MDRD) Af Amer 25 L Est GFR (MDRD) Non-Af 21 L BUN/Creatinine Ratio 10.0 Glucose 212 H Calcium 11.5 H Magnesium 2.3 Total Bilirubin 1.60 H AST 26 ALT 24 Alkaline Phosphatase 235 H Troponin I High Sens 5 Total Protein 9.5 H Albumin 4.7 Globulin 4.8 H Albumin/Globulin Ratio 1.0 Acetone Level MODERATE H POC Glucose 213 H ABG Data ABG results: ABG 07/08/23 08:44 Specimen Type AMADO Sample Site Not entered O2 % 21.0 VBG pH 7.46 H VBG pO2 98 H VBG HCO3 20 L VBG Total CO2 21 L VBG O2 Sat (Calc) 98 H VBG Base Excess -4 L POC Mix VBG pCO2 Pt Tmp 27.4 L O2 Delivery Device Not entered Radiography Diagnostic Testing: Clinical Impression(s) from Imaging Studies Chest X-Ray 07/08/23 08:34 IMPRESSION: Normal x-ray examination of the chest. Electronically Signed: Crow Cui MD at 9:02 EST , Discharge Plan Triage Chief Complaint: Syncope ED Provider: Kaleb Davies Dx/Rx/DC Orders Prescriptions: No Action (DME) FreeStyle Celena 2 Fowler Misc See Rx Instructions .ROUTE .MEDSUPPLY Qty: 1 0RF Rx Instructions: As directed vortioxetine 10 mg tablet 10 mg PO DAILY Qty: 90 2RF cholecalciferol (vitamin D3) 1,250 mcg (50,000 unit) capsule 1,250 mcg PO QWEEK Qty: 12 3RF glucagon (human recombinant) 1 MG recon soln 1 mg IM ONCE PRN (Reason: HYPOGLYCEMIA ) insulin aspart U-100 [Novolog FlexPen U-100 Insulin] 100 unit/mL (3 mL) insulin pen 12 unit subcut TIDCM omeprazole 40 mg capsule,delayed release(DR/EC) 40 mg PO DAILY Qty: 90 2RF nortriptyline 25 mg capsule 25 mg PO QHS Qty: 30 2RF clobetasol 0.05 % ointment 1 applic TOPICAL DAILY Qty: 15 0RF Vraylar 1.5 mg capsule 1.5 mg PO DAILY Qty: 30 1RF (DME) FreeStyle Celena 2 Sensor Kit See Rx Instructions .ROUTE .MEDSUPPLY Qty: 2 8RF Rx Instructions: 1 sensor q 14 days insulin aspart U-100 100 unit/mL (3 mL) insulin pen 12 unit subcut TID Qty: 15 0RF Primary Care Provider: Alfred Katz Referrals: Alfred Katz MD [Primary Care Provider] - Capacity Legal Reacher Reflex Medical hold order details:: IF a medical hold is selected below, a suggested order for a MEDICAL HOLD will reflex upon signing the document. Next of kin: [place] law dictates a PRIORITY LIST for identifying legal decision-maker/legal next of kin in the following order (LNOK): 1st: The patient?s legal guardian, if any 2nd: The patient's spouse (if status is questionable, consult Risk Management) 3rd: The patient?s adult child(faustino) (majority, if multiple children) 4th: The patient?s parents 5th: The patient?s adult siblings (majority, if multiple children siblings) What to do if you have Problems For any increased pain, shortness of breath, bleeding, nausea or vomiting, chestpain, or any unexpected problems, contact your Primary Care Provider. Call [facility] ([phone]) or report to the closest Emergency Room. Call 911 if necessary. 07/08/23 1034 <Electronically signed by Kaleb Davies DO> Cosigner Signature (if applicable): CC: Dr. Alfred Katz MD ~ Signed [facility] Work Phone: 1(200) 635-869912-01-2023 NoteHNO ID: [id number] Author: Patricio Dawn APRN.[facility] Service: ? Author Type: Nurse Practitioner Type: Progress Notes Filed: 05/23/2023 5:59 PM Note Text: CC: Patient presents with: Cough: Fever, vomiting, fatigue and leg pain x 3 days HPI: Hans Gonzalez is a 33 year old male who [...] symptoms occur. Patient agreeable to treatment plan. Patricio Dawn APRN.[facility]12-01-2023 History of Present illness Narrative* Patricio Dawn APRN.[facility] - 05/23/2023 5:51 PM EST CC: Patient presents with: Cough: Fever, vomiting, fatigue and leg pain x 3 days HPI: Hans Gonzalez is a 33 year old male who [...] (BASAGLAR KWIKPEN SUBCUTANEOUS) Inject 30 Units subcutaneously dailybefore breakfast. cholecalciferol, Vitamin D3, (VITAMIN D3) 50,000 unit cap capsule Take 1 capsule by mouth once eachweek. metoclopramide HCl (REGLAN) 10 mg tablet Take [...] flag symptoms discussed with the patient. Reviewed appropriateaction plan to take if red flag symptoms occur. Patient agreeable to treatment plan. Patricio Dawn APRN.[employer] [facility]* Diagnosis Onset Date Resolution Status Anxiety and depression chron ic Major depression with psychotic features chronic Gastroenteritis acute Type 1 diabetes mellitus acu te Major depression with psychotic features [facility] Work Phone: Evaluation note* Diagnosis Onset Date Resolution Status Elevated blood pressure read ing without diagnosis of hypertension acute Anxiety and depression chron ic Arthritis chronic Anxiety and depression chron ic GERD (gastroesophageal reflux disease) chronic Type 1 diabetes mellitus chr onic [facility] Work Phone: Evaluation note* Diagnosis URI, acute- Primary Acute upper respiratory infections of unspecified site documented in this encounter [facility] noteNo assessment information availableWMercy [facility] Work Phone: Evaluation note* Diagnosis Onset Date Resolution Status Acute kidney injury acute Lactic acidosis acute Diabetes mellitus type I chr ic [facility] Work Phone: evaluation note* Diagnosis Onset Date Resolution Status Acute kidney injury acute Diabetes mellitus type I chr onic Lactic acidosis resolved [facility] Work Phone: Evaluation note* Diagnosis Onset Date Resolution Status Acute kidney injury acute Diabetes mellitus type I chr onic Lactic acidosis resolved Type 1 diabetes mellitus chr ic [facility] Work Phone: Evaluation note* Diagnosis Infection of scalp- Primary Neck muscle spasm Spasm of muscle [facility] Author Sarahi Maier [facility] Note Date/Time April 06, 2025 1 0:15am [facility]alt System [facility] [address] [place] [address] OFFICE VISIT Date of Service: 04/06/25 MR#: [id number] Acct: [id number] Name: HANS GONZALEZ JrSoco Rep # : [id number] : 1990 Provider: SHAYE Maier Age/Sex: 34/M Location: [facility] Status: Signed Intake Vital Signs 07/29/24 09:44 11/04/24 14:02 03/09/25 10:26 04/06/25 09:48 Height 5 ft 7 in 5 ft 7 in 5 ft 7 in 5 ft 5 in Weight: 143 lb BMI 23.8 BP 128/84 H Blood Pressure Location Lt brachial Position Sitting Pulse 76 Pulse Source Monitor Pulse Oximetry (%) 98 Oxygen Delivery Method room air Intake Visit Reasons: 8 M FU, RS 01/26 Chief Complaint: f/u diabetes Curtain Worker Required: No Accompanied by: Self Is patient in pain?: No Allergies No Known Allergies Allergy (Verified 04/06/25 09:44) Medications ?Medication ?Instructions ?Recorded ?Confirmed ?Type acetaminophen 650 mg 1,300 mg PO ONCE 08/14/23 History tablet,extended release (Tylenol Arthritis Pain) tadalafil 5 mg tablet 5 mg PO DAILY PRN sexual act ivity 01/09/24 04/06/25 Rx #30 tabs insulin degludec 100 unit/mL (3 18 unit (0.18 mL) subc ut QHS #15 mL 01/22/24 Rx mL) subcutaneous pen (Tresiba FlexTouch U-100 insulin) baclofen 10 mg tablet 10 mg PO BID PRN muscle spas m #30 04/15/24 04/06/25 Rx tabs olanzapine 5 mg tablet (Zyprexa) 5 mg PO QHS #30 tabs 04/19/24 04/06/25 Rx sertraline 50 mg tablet 50 mg PO QDAY #60 tabs 05/1304/06/25 Rx omeprazole 40 mg capsule,delayed 40 mg PO DAILY #90 ca ps 07/19/24 04/06/25 Rx release blood-glucose sensor (FreeStyle #2 ea 10/19/24 5 Rx Celena 3 Plus Sensor device) loperamide 2 mg tablet (Imodium 2 mg PO Q6H PRN loose stool 10/27/24 04/06/25 History A-D) Novolog FlexPen U-100 Insulin 100 20 unit (0.2 mL) sub cut TIDCM 01/26/25 04/06/25 Rx unit/mL (3 mL) subcutaneous DIABETES #15 mL (insulin aspart U-100) pen needle, diabetic 32 gauge x #100 ea 01/26/2504/06 Rx 5/16 (Comfort EZ Pen Ilion) cetirizine 10 mg capsule (Zyrtec) 10 mg PO QDAY PRN 04/06/25 History cholecalciferol (vitamin D3) 50 50 mcg PO QDAY #90 cap s 04/06/25 04/06/25 Rx mcg (2,000 unit) capsule diphenhydramine HCl 25 mg capsule 25 mg PO QHS PRN 04/06/25 History (Benadryl) iviiwn-bvetnhac-kkrchlt 3 cap PO TIDWMEAL 04/06/25 History 40,000-126,000-168,000 unit capsule, delay rel (Zenpep) triamcinolone acetonide 0.1 % applic topical 04/06/25 04/06/25 History topical cream PFSH Medical History (Updated 04/06/25 @ 10:19 by Sarahi Darrion, DEPUTY GENERAL COUNSEL-C) Toe contusion URI (upper respiratory infection) Lower extremity weakness Chronic diarrhea Myalgia Myositis Musculoskeletal back pain Elevated blood pressure reading without diagnosis of hypertension Gastroenteritis Type 1 diabetes mellitus Major depression with psychotic features Headache Pain and numbness of upper extremity Vision problems Arthritis Headache, migraine Anxiety and depression Surgical History trigger finger surgery Family History Grandfather Myocardial infarction COPD (chronic obstructive pulmonary disease) Brother Depression suicide attempt Uncle Diabetes Father Diabetes Aunt Diabetes Social History Smoking Status: Current every day smoker tobacco type: cigarettes Tobacco: How many years used: 13 second hand exposure: No quit status: not considering quitting alcohol intake: never substance use type: marijuana what type of physical activity do you participate in: walking, running and weight training frequency: 3-4 times per week HPI HPI Chief Complaint: f/u diabetes Details: HANS GONZALEZ, is a 34 M who presents to the office today for evaluation and management of diabetes. A1C today is 7.7%, improved from 07/29/24 at 8.2%. He has gained 2 lbs since that time. Currently taking Tresiba 18 u once daily and Novolog 4-8 u TIDCM +1:50. Celena tracings reviewed- he is correcting significantly elevated blood sugars often times resulting in a low blood sugar. He denies any significant episode of hypoglycemia that has required assistance from others. He drinks regular Mountain Dew routinely. BP stable. Hx of vitamin D deficiency. He was taking high dose vitamin D for several months, he is not taking routine supplement. He is due for routine labs. Reports trouble with memory. He states that he forgets information and gets disoriented. He reports near syncopal episodes. Denies any hypoglycemia with episodes. He has not contacted PCP regarding symptoms. ROS Const Constitutional: No fatigue, weakness, weight change or change in appetite Eyes Eyes: No change in vision ENT ENT: No hearing loss, nasal congestion or difficulty swallowing Cardio Cardiology: No chest pain at rest, chest pain with exertion or shortness of breath Musc Musculoskeletal: No numbness Neuro Neurology: Positive for dizziness and memory loss; No weakness or numbness Psych Psychiatric: No change in appetite, Positive for memory loss and No Thoughts of harming yourself/Others Resp Respiratory: No cough or chest congestion Gastro GI: No difficulty swallowing Genitourinary Male: No burning urination Skin Skin: No itchy eyes or wounds Endo Endocrine: No fatigue or weight change Aller/Imm Allergy/Immunologic: No itchy eyes Exam Const General: cooperative, healthy appearing, comfortable and no acute distress Nutritional Appearance: average body habitus Orientation: alert, awake and oriented x3 [facility] Head: normal to inspection Ears: hearing grossly normal bilaterally Nose: external nose normal Face and sinus: normal facial exam Eyes General: appearance normal, both eyes and all related structures Alignment and Position: alignment normal Sclera: sclerae normal Neck Neck: normal visual inspection Chest Chest palpation & inspection: normal inspection of the chest Resp Effort & Inspection: normal respiratory effort, able to speak in complete sentences, symmetric chest movement, normal respiratory pattern, no audible wheezes and no cough Auscultation: Bilateral: Clear to Auscultation Cardio Rate: regular rate Rhythm: regular rhythm Heart Sounds: S1 normal and S2 normal GI Inspection: normal to inspection Musc Cervical Spine: normal cervical lordosis Thoracic/Lumbar Spine: thoracic and lumbar spine normal to inspection Skin General: no rashes or lesions noted Lesions: no lesions Rashes: no rashes Trauma: no lacerations or abrasions Wounds: no wounds Neuro General: patient alert, patient awake and patient oriented x3 Cognition: normal cognition Speech: speech normal Gait: normal gait Extrem General: normal to inspection and no pedal edema Psych Appearance: grossly normal Mental Status: mental status grossly normal Mood: congruent mood Affect: normal affect Speech and Movement: speech and movement normal Attitude: cooperative Thought Process: normal Thought Content: normal Judgment: judgment good Results POC A1C POC A1C 7.7 % Last Edit by Nanci Crump on 04/06/25 09:58 Assessment and Plan Assessment and Plan (1) Type 1 diabetes mellitus: Status: Chronic Qualifiers: Diabetes mellitus complication status: with hyperglycemia Qualified Code(s): E10.65 - Type 1 diabetes mellitus with hyperglycemia Plan: Chronic- poor control with some improvement. I reviewed with the patient the risk of developing and worsening of diabetes complications including retinopathy, neuropathy, nephropathy, heart attack, stroke, amputation, and sudden . Diabetes education provided. A1C at goal: <7.5%. CGM tracings reviewed in detail with patient. Decrease Tresiba to 16 u once daily. Increase Novolog to 5-9 u TIDCM, continue 1:50>150. Notify office of persistently high/low blood sugars. CGM: he is checking blood sugar 4x/day, he is taking 4+ subq insulin injections/day, he is using blood sugar reading to titrate insulin dose, he is at risk of hypoglycemia. Check lipid panel, TSH, M:C ratio, and vitamin D - I will interpret and communicate results with patient. Follow up in 6 months. (2) Vitamin D deficiency: Status: Chronic Plan: Chronic- stability unknown. -vitamin D Start vitamin D3 2,000 iu once daily. Discussed importance of adequate vitamin D. (3) Near syncope: Status: Chronic Plan: Chronic- poorly controlled. Instructed to call PCP for appointment to discuss further. Discussed red flag symptoms requiring urgent medical attention. I have spent [34] minutes today reviewing labs, records and history. Time includes coordinating care, interpretation of tests, discussion with patient's other health care providers via telephone. This also includes time I spent with the patient for exam, treatment plan and education as well as documenting clinical information. Orders: Orders Microalb:Creat Ratio,Random UR Today E10.65 - Type 1 diabetes mellitus with hyperglycemia Vitamin D,25 Hydroxy Today E10.65 - Type 1 diabetes mellitus with hyperglycemia Lipid Profile Today E10.65 - Type 1 diabetes mellitus with hyperglycemia POC A1C Today E10.65 - Type 1 diabetes mellitus with hyperglycemia Thyroid Stim Hormone (TSH) Today E10.65 - Type 1 diabetes mellitus with hyperglycemia Medications: New cholecalciferol (vitamin D3) 50 mcg PO QDAY 90 caps 3RF E55.9 - Vitamin D deficiency, unspecified Plan Details Follow Up: 6 Months Coding Level of Care Code Off vis,est,level 4 Diagnoses Type 1 diabetes mellitus with hyperglycemia E10.65 Diabetes mellitus complication status: with hyperglycemia Vitamin D deficiency E55.9 Near syncope R55 04/06/25 1023 <Electronically signed by Sarahi CR> Date _ Sarahi CR Cosigner Signature: Date (if applicable) CC: ~ [facility] Work Phone: Reason for referral (narrative)No reason for referral information availableColor[facility] Work Phone: Summary Purpose Family History No Family History Records Found Relationship Condition Age at Onset Recorded Date/T chloé grandfather Myocardial infarction Unknown Chronic obstructive pulmonary disease Unk nown brother Depression Unknown uncle Diabetes mellitus Unknown father Diabetes mellitus Unknown aunt Diabetes mellitus Unknown Advance Directives No Advanced Directives Records Found Advance Directive Response Recorded Date/ Time Advance Directives No July 9:00am Living Will No January 25, 2021 4:41pm Power of Repair Armature Winder Helper No January 25 4:41pm Advance Directive Response Recorded Date/ Time Advance Directives No July 10:00am Living Will No January 25, 2021 5:41pm Power of Repair Armature Winder Helper No January 25 5:41pm Advance Directive Response Recorded Date/ Time Advance Directives No February 11:33am Living Will No July 08 7:37am Power of Repair Armature Winder Helper No July 08, 2023 7:37am Advance Directive Response Recorded Date/ Time Advance Directives No February 11:33am Living Will No July 08 12:10pm Power of Repair Armature Winder Helper No July 08, 2023 12:10pm Advance Directive Response Recorded Date/ Time Advance Directives No February 12:33pm Living Will No July 08 1:10pm Power of Repair Armature Winder Helper No July 08, 2023 1:10pm Advance Directive Response Recorded Date/ Time Living Will No July 08 1:10pm Do you have a Healthcare Power of Repair Armature Winder Helper? No July 08, 2023 1:10pm Advance Directives No February 12:33pm Advance Directive Response Recorded Date/ Time Living Will No July 08 1:10pm Do you have a Healthcare Power of Repair Armature Winder Helper? No Fernanda 16th, 2024 1:10pm Do you have a Healthcare Power of Repair Armature Winder Helper? No November 04, 2024 4:51pm Advance Directives No February 12:33pm Advance Directive Response Recorded Date/ Time Do you have a Healthcare Power of Repair Armature Winder Helper? No November 04, 2024 4:51pm Advance Directives No February 12:33pm Advance Directive Response Recorded Date/ Time Advance Directives No February 12:33pm Chief Complaint and Reason for Visit Chief Complaint FU PER DR HELTON Follow up 4 M FU Reason for Visit Anxiety and depressi on Major depression with psychotic features Gastroenteritis Type 1 diabetes mellitus Major depression with psychotic features Chief Complaint 1 m fu 3 M FU Reason for Visit Elevated blood press ure reading without diagnosis of hypertension Anxiety and depression Arthritis Anxiety and depression GERD (gastroesophageal reflux disease) Type 1 diabetes mellitus Chief Complaint KIDNEY FAILURE, DKA Chief Complaint KIDNEY FAILURE, DKA KIDNEY FAILURE, DKA KIDNEY FAILURE, DKA KIDNEY FAILURE, DKA KIDNEY FAILURE, DKA KIDNEY FAILURE, DKA Reason for Visit Acute kidney injury Lactic acidosis Diabetes mellitus type I Chief Complaint KIDNEY FAILURE, DKA KIDNEY FAILURE, DKA KIDNEY FAILURE, DKA KIDNEY FAILURE, DKA KIDNEY FAILURE, DKA KIDNEY FAILURE, DKA Reason for Visit Acute kidney injury Diabetes mellitus type I Lactic acidosis Chief Complaint KIDNEY FAILURE, DKA KIDNEY FAILURE, DKA KIDNEY FAILURE, DKA KIDNEY FAILURE, DKA KIDNEY FAILURE, DKA KIDNEY FAILURE, DKA 7 M FU, RS 02/25, NS 05/13 Reason for Visit Acute kidney injury Diabetes mellitus type I Lactic acidosis Type 1 diabetes mellitus Chief Complaint Admit Date 3 m fu July 19, 2024 1 :31pm 6 M FU July 29, 2024 9 :39am Colitis August 03, 2024 8:51am LE WEAKNESS. RX HERE August 25, 2024 2:0 0pm ACUTE PAIN IN LOWER BACK MOVING DOWN LEG S September 09, 2024 2:49pm LUMBAR SPINE October 19, 2024 10: 43am RM 1 October 19, 2024 10: 54am 3 M FU October 27, 2024 1:26pm Reason for Visit Admit Date Lower extremity weakness July 19, 2 025 1:31pm URI (upper respiratory infection) Januar y 2024 1:31pm Anxiety and depression July 19 1:31pm Chronic diarrhea July 19, 2024 1 :31pm Myalgia July 19, 2024 1 :31pm Diabetes mellitus type I July 29 025 9:39am Vitamin D deficiency July 29, 2024 9:39am Loose stools August 03, 2024 8:51am Non-specific colitis August 03, 2024 8:51am Musculoskeletal back pain September 09 2:49pm Lumbar radiculopathy October 19, 2024 10 :43am Anxiety and depression October 27, 2024 1:2 6pm Chronic diarrhea October 27, 2024 1:26pm GERD (gastroesophageal reflux disease) M 2024 1:26pm Lumbar radiculopathy October 27, 2024 1:26p m Type 1 diabetes mellitus October 27, 2024 1 :26pm Chief Complaint Admit Date 3 m fu July 19, 2024 1 :31pm 6 M FU July 29, 2024 9 :39am Colitis August 03, 2024 8:51am LE WEAKNESS. RX HERE August 25, 2024 2:0 0pm ACUTE PAIN IN LOWER BACK MOVING DOWN LEG S September 09, 2024 2:49pm LUMBAR SPINE October 19, 2024 10: 43am RM 1 October 19, 2024 10: 54am 3 M FU October 27, 2024 1:26pm syncopal November 04, 2024 2:01p m Chief Complaint Admit Date 3 m fu July 19, 2024 1 :31pm 6 M FU July 29, 2024 9 :39am Colitis August 03, 2024 8:51am LE WEAKNESS. RX HERE August 25, 2024 2:0 0pm ACUTE PAIN IN LOWER BACK MOVING DOWN LEG S September 09, 2024 2:49pm LUMBAR SPINE October 19, 2024 10: 43am RM 1 October 19, 2024 10: 54am 3 M FU October 27, 2024 1:26pm syncopal November 04, 2024 2:01p m EORDER- STOOL November 08, 2024 9:28a m 3 M FU November 10, 2024 12:46 pm Chief Complaint Admit Date Colitis August 03, 2024 8:51am LE WEAKNESS. RX HERE August 25, 2024 2:0 0pm ACUTE PAIN IN LOWER BACK MOVING DOWN LEG S September 09, 2024 2:49pm LUMBAR SPINE October 19, 2024 10: 43am RM 1 October 19, 2024 10: 54am 3 M FU October 27, 2024 1:26pm syncopal November 04, 2024 2:01p m EORDER- STOOL November 08, 2024 9:28a m 3 M FU November 10, 2024 12:46 pm Pain November 25, 2024 1:10p m Reason for Visit Admit Date Loose stools August 03, 2024 8:51am Non-specific colitis August 03, 2024 8:51am Musculoskeletal back pain September 09 2:49pm Lumbar radiculopathy October 19, 2024 10 :43am Anxiety and depression October 27, 2024 1:2 6pm Chronic diarrhea October 27, 2024 1:26pm GERD (gastroesophageal reflux disease) M ay 2024 1:26pm Lumbar radiculopathy October 27, 2024 1:26p m Type 1 diabetes mellitus October 27, 2024 1 :26pm Exocrine pancreatic insufficiency November 102024 12:46pm Chronic diarrhea November 10, 2024 12:46 pm Diabetes mellitus type I November 10, 2024 12:46pm Chief Complaint Admit Date LUMBAR SPINE October 19, 2024 10: 43am RM 1 October 19, 2024 10: 54am 3 M FU October 27, 2024 1:26pm syncopal November 04, 2024 2:01p m EORDER- STOOL November 08, 2024 9:28a m 3 M FU November 10, 2024 12:46 pm Pain November 25, 2024 1:10p m 3 M FU February 01, 2025 1: 01pm Reason for Visit Admit Date Lumbar radiculopathy October 19, 2024 10 :43am Anxiety and depression October 27, 2024 1:2 6pm Chronic diarrhea October 27, 2024 1:26pm GERD (gastroesophageal reflux disease) M ay 2024 1:26pm Lumbar radiculopathy October 27, 2024 1:26p m Type 1 diabetes mellitus October 27, 2024 1 :26pm Exocrine pancreatic insufficiency November 102024 12:46pm Chronic diarrhea November 10, 2024 12:46 pm Diabetes mellitus type I November 10, 2024 12:46pm Chief Complaint Admit Date 3 M FU November 10, 2024 12:46 pm Pain November 25, 2024 1:10p m 3 M FU February 01, 2025 1: 01pm Rescheduled follow up + Toe surgery foll ow up March 09, 2025 10:22am Reason for Visit Admit Date Exocrine pancreatic insufficiency November 102024 12:46pm Chronic diarrhea November 10, 2024 12:46 pm Diabetes mellitus type I November 10, 2024 12:46pm Exocrine pancreatic insufficiency February 01, 2025 1:01pm Loose stools February 01, 2025 1: 01pm Diabetes mellitus type I February 01 1:01pm Chief Complaint Admit Date Pain November 25, 2024 1:10p m 3 M FU February 01, 2025 1: 01pm Rescheduled follow up + Toe surgery foll ow up March 09, 2025 10:22am Reason for Visit Admit Date Exocrine pancreatic insufficiency February 01, 2025 1:01pm Loose stools February 01, 2025 1: 01pm Diabetes mellitus type I February 01 1:01pm Anxiety and depression March 09 2 025 10:22am GERD (gastroesophageal reflux disease) S [facility] 2024 10:22am Lumbar radiculopathy March 09 10:22am Major depression with psychotic features March 09, 2025 10:22am Musculoskeletal back pain February 10:22am Toe contusion March 09, 2025 10:22am Chief Complaint Admit Date 3 M FU February 01, 2025 1: 01pm Rescheduled follow up + Toe surgery foll ow up March 09, 2025 10:22am 8 M FU, RS 08/06 April 06, 2025 9 :43am INT LAB ORDERS April 06, 2025 1 0:29am Reason for Visit Admit Date Exocrine pancreatic insufficiency February 01, 2025 1:01pm Loose stools February 01, 2025 1: 01pm Diabetes mellitus type I February 01 1:01pm Anxiety and depression March 09, 2 025 10:22am GERD (gastroesophageal reflux disease) S [facility] 2024 10:22am Lumbar radiculopathy March 09 10:22am Major depression with psychotic features March 09, 2025 10:22am Musculoskeletal back pain Elvie 17th , 2025 10:22am Toe contusion March 09, 2025 10:22am Near syncope April 06, 2025 9 :43am Type 1 diabetes mellitus April 06, 2 025 9:43am Vitamin D deficiency April 06, 2025 9:43am Additional Source Comments (unrecognized sect ion and content) No Status Records FoundNo Status Records FoundNo Status Records Found INFORMATION SOURCE (unrecogn ized section and content) DATE CREATED AUTHOR 05/31/2018 [facility] ([place]) DATE CREATED AUTHOR AUTHOR'S ORGANIZ ATION 12/19/[address] [facility] DATE CREATED AUTHOR AUTHOR'S ORGANIZ ATION 05/03/2025 [facility] Care Teams (unrecognized sec tion and content) Team Status: Active Member Role Status Dates Dr. Alfred Katz MD Family Provider Active Dr. Alfred Katz MD Primary Care Provider Active Team Status: Inactive Member Role Status Dates Dr. Alfred Katz MD Primary Care Provider, Refer ring Provider Active Dr. Marvin Helton MD Attending Provider Active Team Status: Inactive Member Role Status Dates Dr. Alfred Katz MD Primary Care P tim, Attending Provider, Referring Provider Active Kier Boiler Relationship Specialty Start Date End Date Alfred Katz MD PCP - General Internal Medicine 09/21/18 Team Status: Active Member Role Status Dates Dr. Alfred Katz MD Primary Care Provider Active Dr. Kaleb Davies DO Emergency Provider Active Dr. Ninoska Welch MD Admit Provider, Attending Provid er Active Team Status: Active Member Role Status Dates Dr. Alfred Katz MD Primary Care Provider Active Dr. Kaleb Davies DO Emergency Provider Active Dr. Ninoska Welch MD Admit Provider, At tending Provider, Other Provider Active Team Status: Active Member Role Status Dates Dr. Alfred Katz MD Primary Care Provider Active Dr. Kaleb Davies DO Emergency Provider Active Dr. Ninoska Welch MD Admit Provider, At tending Provider, Other Provider Active Dr. Kalyani Hampton MD Other Provider Active Team Status: Inactive Member Role Status Dates Dr. Alfred Katz MD Primary Care Provider Active Dr. Kaleb Davies DO Emergency Provider Active Dr. Ninoska Welch MD Admit Provider, Attending Provid er Active Dr. Kalyani Hampton MD Other Provider Active Team Status: Inactive Member Role Status Dates Dr. Alfred Katz MD Primary Care Provider Active Dr. Kalyani Hampton MD Attending Provider, Referri ng Provider Active Kier Boiler Relationship Specialty Start Date End Date Alfred Katz MD PCP - General Internal Medicine 09/21/18 Team Status: Active Member Role Status Dates Dr. Alfred Katz MD Primary Care Provider Active Team Status: Inactive Member Role Status Dates Dr. Aflred Katz MD Primary Care Provider Active Start: July 19, 2024 End: July 19, 2024 Dr. Alfred Katz MD Attending Provider Active Start: July 19, 2024 End: July 19, 2024 Dr. Alfred Katz MD Referring Provider Active Start: July 19, 2024 End: July 19, 2024 Team Status: Inactive Member Role Status Dates Dr. Alfred Katz MD Primary Care Provider Active Start: July 29, 2024 End: July 29, 2024 Dr. Alfred Katz MD Referring Provider Active Start: July 29, 2024 End: July 29, 2024 SHAYE Padron Attending Provider Active Start: July 29, 2024 End: July 29, 2024 Team Status: Inactive Member Role Status Dates Dr. Alfred Katz MD Primary Care Provider Active Start: August 03, 2024 End: August 03, 2024 Dr. Alfred Katz MD Referring Provider Active Start: August 03, 2024 End: August 03, 2024 BÁRBARA Glez Attending Provider Active Start: August 03, 2024 End: August 03, 2024 Team Status: Inactive Member Role Status Dates Dr. Alfred Katz MD Primary Care Provider Active Start: August 25, 2024 End: August 25, 2024 Dr. Alfred Katz MD Attending Provider Active Start: August 25, 2024 End: August 25, 2024 Dr. Alfred Katz MD Referring Provider Active Start: August 25, 2024 End: August 25, 2024 Team Status: Inactive Member Role Status Dates Dr. Alfred Katz MD Primary Care Provider Active Start: September 09, 2024 End: September 09, 2024 Dr. Alfred Katz MD Referring Provider Active Start: September 09, 2024 End: September 09, 2024 BÁRBARA Coles Attending Provider Active St art: September 09, 2024 End: September 09, 2024 Team Status: Inactive Member Role Status Dates Dr. Alfred Katz MD Primary Care Provider Active Start: October 19, 2024 End: October 19, 2024 Dr. Alfred Katz MD Referring Provider Active Start: October 19, 2024 End: October 19, 2024 BÁRBARA Bennett Attending Provider Active Star t: October 19, 2024 End: October 19, 2024 Team Status: Inactive Member Role Status Dates Dr. Alfred Katz MD Primary Care Provider Active Start: October 19, 2024 End: October 19, 2024 Dr. Valente Barone MD Attending Provider Active S tart: October 19, 2024 End: October 19, 2024 Team Status: Inactive Member Role Status Dates Dr. Alfred Katz MD Primary Care Provider Active Start: October 27, 2024 End: October 27, 2024 Dr. Alfred Katz MD Attending Provider Active Start: October 27, 2024 End: October 27, 2024 Dr. Alfred Katz MD Referring Provider Active Start: October 27, 2024 End: October 27, 2024 Team Status: Inactive Member Role Status Dates Dr. Alfred Katz MD Primary Care Provider Active Start: October 27, 2024 End: October 27, 2024 Dr. Alfred Katz MD Attending Provider Active Start: October 27, 2024 End: October 27, 2024 Team Status: Inactive Member Role Status Dates Dr. Alfred Katz MD Primary Care Provider Active Start: November 04, 2024 End: November 04, 2024 Dr. Chapo Dukes DO Emergency Provider Active Start: November 04, 2024 End: November 04, 2024 Team Status: Inactive Member Role Status Dates Dr. Alfred Katz MD Primary Care Provider Active Start: November 04, 2024 End: November 04, 2024 Dr. Chapo Dukes DO Attending Provider Active Start: November 04, 2024 End: November 04, 2024 Dr. Chapo Dukes DO Emergency Provider Active Start: November 04, 2024 End: November 04, 2024 Team Status: Active Member Role Status Dates Dr. Alfred Katz MD Primary Care Provider Active Start: November 08, 2024 BÁRBARA Glez Attending Provider Active Start: November 08, 2024 BÁRBARA Glez Referring Provider Active Start: November 08, 2024 Team Status: Inactive Member Role Status Dates Dr. Alfred Katz MD Primary Care Provider Active Start: November 10, 2024 End: November 10, 2024 Dr. Alfred Katz MD Referring Provider Active Start: November 10, 2024 End: November 10, 2024 BÁRBARA Glez Attending Provider Active Start: November 10, 2024 End: November 10, 2024 Team Status: Inactive Member Role Status Dates Dr. Alfred Katz MD Primary Care Provider Active Start: November 08, 2024 End: November 08, 2024 BÁRBARA Glez Attending Provider Active Start: November 08, 2024 End: November 08, 2024 BÁRBARA Glez Referring Provider Active Start: November 08, 2024 End: November 08, 2024 Team Status: Inactive Member Role Status Dates Dr. Alfred Katz MD Primary Care Provider Active Start: November 25, 2024 End: November 25, 2024 BÁRBARA Bennett Attending Provider Active Star t: November 25, 2024 End: November 25, 2024 BÁRBARA Bennett Referring Provider Active Star t: November 25, 2024 End: November 25, 2024 Team Status: Active Member Role/Relationship Status Dates Dr. Alfred Katz MD Primary Care Provider Active Team Status: Inactive Member Role/Relationship Status Dates Dr. Alfred Katz MD Primary Care Provider Active Start: October 19, 2024 End: October 19, 2024 Dr. Alfred Katz MD Referring Provider Active Start: October 19, 2024 End: October 19, 2024 BÁRBARA Bennett Attending Provider Active Star t: October 19, 2024 End: October 19, 2024 Team Status: Inactive Member Role/Relationship Status Dates Dr. Alfred Katz MD Primary Care Provider Active Start: October 19, 2024 End: October 19, 2024 Dr. Valente Barone MD Attending Provider Active S tart: October 19, 2024 End: October 19, 2024 Team Status: Inactive Member Role/Relationship Status Dates Dr. Alfred Katz MD Primary Care Provider Active Start: October 27, 2024 End: October 27, 2024 Dr. Alfred Katz MD Attending Provider Active Start: October 27, 2024 End: October 27, 2024 Dr. Alfred Katz MD Referring Provider Active Start: October 27, 2024 End: October 27, 2024 Team Status: Inactive Member Role/Relationship Status Dates Dr. Alfred Katz MD Primary Care Provider Active Start: October 27, 2024 End: October 27, 2024 Dr. Alfred Katz MD Attending Provider Active Start: October 27, 2024 End: October 27, 2024 Team Status: Inactive Member Role/Relationship Status Dates Dr. Alfred Katz MD Primary Care Provider Active Start: November 04, 2024 End: November 04, 2024 Dr. Chapo Dukes DO Attending Provider Active Start: November 04, 2024 End: November 04, 2024 Dr. Chapo Dukes DO Emergency Provider Active Start: November 04, 2024 End: November 04, 2024 Team Status: Inactive Member Role/Relationship Status Dates Dr. Alfred Katz MD Primary Care Provider Active Start: November 08, 2024 End: November 08, 2024 BÁRBARA Glez Attending Provider Active Start: November 08, 2024 End: November 08, 2024 BÁRBARA Glez Referring Provider Active Start: November 08, 2024 End: November 08, 2024 Team Status: Inactive Member Role/Relationship Status Dates Dr. Alfred Katz MD Primary Care Provider Active Start: November 10, 2024 End: November 10, 2024 Dr. Alfred Katz MD Referring Provider Active Start: November 10, 2024 End: November 10, 2024 BÁRBARA Glez Attending Provider Active Start: November 10, 2024 End: November 10, 2024 Team Status: Inactive Member Role/Relationship Status Dates Dr. Alfred Katz MD Primary Care Provider Active Start: November 25, 2024 End: November 25, 2024 BÁRBARA Bennett Attending Provider Active Star t: November 25, 2024 End: November 25, 2024 BÁRBARA Bennett Referring Provider Active Star t: November 25, 2024 End: November 25, 2024 Team Status: Inactive Member Role/Relationship Status Dates Dr. Alfred Katz MD Primary Care Provider Active Start: February 01, 2025 End: February 01, 2025 Dr. Alfred Katz MD Referring Provider Active Start: February 01, 2025 End: February 01, 2025 BÁRBARA Glez Attending Provider Active Start: February 01, 2025 End: February 01, 2025 Team Status: Active Member Role/Relationship Status Dates Dr. Alfred Katz MD Primary care physician Activ e Team Status: Inactive Member Role/Relationship Status Dates Dr. Alfred Katz MD Primary care physician Activ e Start: November 10, 2024 End: November 10, 2024 Dr. Alfred Katz MD Referring Provider Active Start: November 10, 2024 End: November 10, 2024 BÁRBARA Glez Attending physician Active Start: November 10, 2024 End: November 10, 2024 Team Status: Inactive Member Role/Relationship Status Dates Dr. Alfred Katz MD Primary care physician Activ e Start: November 25, 2024 End: November 25, 2024 BÁRBARA Bennett Attending physician Active Sta rt: November 25, 2024 End: November 25, 2024 BÁRBARA Bennett Referring Provider Active Star t: November 25, 2024 End: November 25, 2024 Team Status: Inactive Member Role/Relationship Status Dates Dr. Alfred Katz MD Primary care physician Activ e Start: February 01, 2025 End: February 01, 2025 Dr. Alfred Katz MD Referring Provider Active Start: February 01, 2025 End: February 01, 2025 BÁRBARA Glez Attending physician Active Start: February 01, 2025 End: February 01, 2025 Team Status: Inactive Member Role/Relationship Status Dates Dr. Alfred Katz MD Primary care physician Activ e Start: March 09, 2025 End: March 09, 2025 Dr. Alfred Katz MD Attending physician Active Start: March 09, 2025 End: March 09, 2025 Dr. Alfred Katz MD Referring Provider Active Start: March 09, 2025 End: March 09, 2025 Team Status: Active Member Role/Relationship Status Dates Dr. Alfred Katz MD Primary care physician Activ e Start: March 09, 2025 Dr. Alfred Katz MD Attending physician Active Start: March 09, 2025 Dr. Alfred Katz MD Referring Provider Active Start: March 09, 2025 Team Status: Inactive Member Role/Relationship Status Dates Dr. Alfred Katz MD Primary care physician Activ e Start: November 25, 2024 End: November 25, 2024 BÁRBARA Bennett Attending physician Active Sta rt: November 25, 2024 End: November 25, 2024 BÁRBARA Bennett Referring Provider Active Star t: November 25, 2024 End: November 25, 2024 Team Status: Inactive Member Role/Relationship Status Dates Dr. Alfred Katz MD Primary care physician Activ e Start: February 01, 2025 End: February 01, 2025 Dr. Alfred Katz MD Referring Provider Active Start: February 01, 2025 End: February 01, 2025 BÁRBARA Glez Attending physician Active Start: February 01, 2025 End: February 01, 2025 Team Status: Inactive Member Role/Relationship Status Dates Dr. Alfred Katz MD Primary care physician Activ e Start: March 09, 2025 End: March 09, 2025 Dr. Alfred Katz MD Attending physician Active Start: March 09, 2025 End: March 09, 2025 Dr. Alfred Katz MD Referring Provider Active Start: March 09, 2025 End: March 09, 2025 Team Status: Inactive Member Role/Relationship Status Dates Dr. Alfred Katz MD Primary care physician Activ e Start: February 01, 2025 End: February 01, 2025 Dr. Alfred Katz MD Referring Provider Active Start: February 01, 2025 End: February 01, 2025 BÁRBARA Glez Attending physician Active Start: February 01, 2025 End: February 01, 2025 Team Status: Inactive Member Role/Relationship Status Dates Dr. Alfred Katz MD Primary care physician Activ e Start: March 09, 2025 End: March 09, 2025 Dr. Alfred Katz MD Attending physician Active Start: March 09, 2025 End: March 09, 2025 Dr. Alfred Katz MD Referring Provider Active Start: March 09, 2025 End: March 09, 2025 Team Status: Inactive Member Role/Relationship Status Dates Dr. Alfred Katz MD Primary care physician Activ e Start: April 06, 2025 End: April 06, 2025 Dr. Alfred Katz MD Referring Provider Active Start: April 06, 2025 End: April 06, 2025 SHAYE Padron Attending physician Active Start: April 06, 2025 End: April 06, 2025 Team Status: Inactive Member Role/Relationship Status Dates Dr. Alfred Katz MD Primary care physician Activ e Start: April 06, 2025 End: April 06, 2025 SHAYE Padron Attending physician Active Start: April 06, 2025 End: April 06, 2025 SHAYE Padron Referring Provider Active Start: April 06, 2025 End: April 06, 2025 Goals (unrecognized section and content) Goals may be documented in a n alternate sectionGoals may be documented in an alternate sectionGoals may be documented in an alternate sectionGoals may be documented in an alternate sectionGoals may be documented in an alternate sectionGoals may be documented in an alternate sectionGoals may be documented in an alternate sectionGoals may be documented in an alternate sectionGoals may be documented in an alternate sectionGoals may be documented in an alternate sectionGoals may be documented in an alternate section Source Comments (unrecognize d section and content) In the event this informatio n is protected by the Federal Confidentiality of Alcohol and Drug Abuse Patient Records regulations: The Federal rules restrict any use of the information to criminally investigate or prosecute any alcohol or drug abuse patient.[facility] Campus[facility] the event this information is protected by the Federal Confidentiality of Alcohol and Drug Abuse Patient Records regulations: The Federal rules restrict any use of the information to criminally investigate or prosecute any alcohol or drug abuse patient.[facility] Reason for Visit (unrecogniz ed section and content) Reason Comments Cough Fever, vomiting, fat igue and leg pain x 3 days Reason Comments Neck Pain L sided neck pain an d swollen x3 days, L ear muffled FOR RECORDS PERTAINING TO PATIENTS WHO ARE [...] BE BASED ON THE PRIMARY CLINICAL RECORDS. [facility]. provides no warranty or guarantee of the accuracy or completeness of information in this document.
--- NOTE | 2025-05-11 07:22 | MRI_ITS ---
PROCEDURE: BRAIN W/WO CONTRAST 05/11/2025 REASON FOR EXAM: CHANGE IN MENTAL STATUS TECHNIQUE: Procedure Code: [id number] Modality: MR Procedure: BRAIN W/WO CONTRAST Multiplanar and multisequence images were obtained. CONTRAST: 15 cc Clariscan IV. FINDINGS: A tiny FLAIR hyperintense focus is noted within the right frontal white matter (series 9 image 15), nonspecific and of questionable clinical significance. No corresponding enhancement. Otherwise the brain parenchyma appears unremarkable. The sierra-white matter differentiation is appropriate. The ventricles are normal in size and configuration. No midline shift. The midline structures are intact, specifically the corpus callosum, septum pellucidum, pituitary gland, and cerebellar vermis. The cervicomedullary junction appears unremarkable. The paranasal sinuses and mastoid air cells are clear. Diffusion-weighted images demonstrate no restricted diffusion. MRI/Brain W/WO Contrast IMPRESSION: Tiny nonspecific, nonenhancing FLAIR hyperintense focus within the right fronta l white matter, of questionable clinical significance. Otherwise unremarkable MRI of the brain. Reading Location: [id number]
== END | disposition home or self-care (01) ==
PROVIDERS: PCP Internal Medicine; Referring Provider Nurse Practitioner Family; Visit Provider Nurse Practitioner Family
DX: R41.82 Altered mental status, unspecified (principal)
CPT/HCPCS: 70553; A9575